=== PATIENT | female | born 1960 | race Caucasian/White ===

== ENCOUNTER 2025-02-12 15:48 | Inpatient (IN) ==
--- NOTE | 2025-02-12 16:05 | Emergency Department Note ---
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 IV was established and blood work was obtained along with CT head CT abdomen and pelvis ammonia levels. Patient was ordered IV Ofirmev as well as lidocaine patch. Chest x-ray also performed. The patient's blood work shows a white count of 9 with a hemoglobin of 10. Patient's platelet count is 55,000. The patient's kidney function unremarkable hypomagnesemia noted at 1.5. I did obtain outpatient records which showed that the patient's bilirubin was less than 2 but in the high ones. Today's bilirubin of 2.6 with an AST of 281. Lipase is normal. Urinalysis does not show evidence of obvious infection. Patient CT head shows unchanged destructive mass involving the left frontal bone. Patient's chest x-ray shows possible pneumonia. The patient CT abdomen pelvis shows cirrhosis metastatic disease of the liver with possible peritoneal carcinomatosis and associated ascites. 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 I did inform the patient the findings. The patient was ordered IV fluids and fentanyl 25 mcg. I spoke with Dr. Cruz on-call hospitalist service and the patient was admitted to the medicine service. Am concerned given the patient's imaging and lab work findings are consistent with worsening burden of disease. Likely further discussion of goals of care and possible treatment options as an inpatient. Discussion w/ other healthcare providers: Dr. Cruz inpatient medicine service Prior /Outside records reviewed: None Differential diagnosis: Infection, dehydration, metabolic abnormality, hypo/hyperglycemia, electrolyte imbalance, anemia, UTI, pneumonia, thyroid dysfunction among others were considered. Diagnostics, as interpreted by me: ECG: Normal sinus rhythm, rate of 93, normal intervals, normal axis no ST elevations. Cardiac monitoring: An order was placed for continuous cardiac monitoring. The monitor shows a rate of 92 with sinus rhythm. Patient was placed on pulse oximetry Medical decision rules: None Imaging studies: I informally interpreted the patient's chest x-ray without obvious pneumothorax port noted to the right chest with formal report to follow. HPI: Patient presents due to concern for right lower and lower abdominal pain as well as right shoulder pain in the setting of known liver cancer. She does follow with Dr. Plunkett with oncology. She reportedly did have radiation treatments every day last week and is undergoing immunotherapy which most recently happened on February 02. She reportedly was having some increasing confusion and had been taking Ativan in her or extended release morphine prior to her radiation treatments. They thought that this might be contributing to her confusion and this was stopped and only being given the immediate release. She reportedly did take Ativan yesterday. Patient reportedly did only receive 7.5 mg of IR morphine today. She has a chronic cough. Patient reportedly is had some increasing swelling and reports that she did have 4 diarrheal bowel movements today and does have a prior history of C. difficile status post Dificid and Vanco treatment about a month prior. No reported fevers or chills. Patient has had some decreased appetite. No fall or head strike. Patient has had worsening lower extremity swelling. No prior history of any paracentesis. Patient also reportedly has some pain of the right shoulder/scapula but does have a known history of a met there. Patient is also had radiation treatment to 1/6 rib. PAST MEDICAL HISTORY: See Below PAST SURGICAL HISTORY: See Below SOCIAL HISTORY: See Below HOME MEDICATIONS: See Below ALLERGIES: See Below VITALS: See Below PHYSICAL EXAMINATION: GENERAL: Resting comfortably nontoxic in appearance. EYE EXAM: Normal conjunctiva. PERRL, no anisocoria and EOM's grossly intact w/o pain. OROPHARYNX: Dry mucus membranes, grossly normal dentition. NECK: Trachea midline, no stridor. Supple, no nuchal rigidity, no adenopathy, non-tender. No signs of meningismus. FROM of the neck with good chin to chest and neck extension. LUNGS: Slight sonorous sound at the left base. Normal chest wall mechanics. HEART: NSR, no MRG. ABDOMEN: Abdomen soft, abdominal distention but without significant TTP, lower abdominal discomfort, not peritonitic, no masses, no rebound or guarding. BACK: No CVA TTP. SKIN: No rashes and no bruising. UPPER EXTREMITIES: Upper extremities are grossly normal. LOWER EXTREMITIES: Grossly normal, no edema. NEURO EXAM: Awake and alert follows basic commands, cranial nerves II-XII grossly intact, normal speech, moves all 4 extremities. 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 difficile colitis Hepatitis C Anxiety Hypertension Surgical History Hx of LASIK Hx of colonoscopy H/O esophagogastroduodenoscopy Family History Mother COPD (chronic obstructive pulmonary disease) Father Cirrhosis of liver Brother Cancer Colon Social History Smoking Status: Former smoker Age Started Using Tobacco: 9; Age Quit Using Tobacco: 64; packs per day: 0.5; Hx Alcohol Use: No Hx Substance Use: No Preferred Language: [facility] Communication Ability: Effective Beliefs That Will Affect Care: None Current Living Situation: Spouse Current Living Situation Comment: currently living with son current occupational status: retired Feels Safe at Home: Yes Safety Concerns: Feels Safe At This Time Diet: regular during the past year weight has: remained stable Assistive Devices: Lift Chair Allergies Allergies Allergy/AdvReac Type Severity Reaction Status Date / Time No Known Allergies Allergy Unverified 01/25/25 10:02 Home Meds Home Medications Medication Instructions Recorded Confirmed albuterol sulfate 90 mcg/actuation 2 puff inhalation Q4H PRN 01/25/25 02/12/25 aerosol inhaler (Ventolin HFA) Shortness Of Breath carvedilol 6.25 mg tablet (Coreg) 6.25 mg PO BID 01/25/25 02/12/25 furosemide 20 mg tablet (Lasix) 20 mg PO DAILY 01/25/25 02/12/25 gabapentin 100 mg capsule 100 mg PO TID 01/25/25 02/12/25 multivitamin with minerals-folic 1 tab PO DAILY 01/25/25 02/12/25 acid 120 mcg chewable tablet (Centrum Adult 50 Plus Fresh-Fruity) naloxone 4 mg/actuation nasal spray 1 spray intranasal Q3M 01/25/25 02/12/25 ondansetron HCl 8 mg tablet 8 mg PO Q8H PRN Nausea 01/25/25 02/12/25 prochlorperazine maleate 10 mg 10 mg PO Q6H PRN Nausea 01/25/25 02/12/25 tablet (Compazine) venlafaxine 150 mg 150 mg PO DAILY 01/25/25 02/12/25 capsule,extended release 24 hr venlafaxine 75 mg tablet 75 mg PO DAILY 01/25/25 02/12/25 morphine 15 mg immediate release 7.5 mg PO Q6H PRN Pain 02/11/25 02/12/25 tablet lidocaine-prilocaine 2.5 %-2.5 % 1 applic topical UD PRN ACCESSING 02/12/25 02/12/25 topical cream MEDIPORT potassium chloride 10 mEq 10 meq PO QAM 02/12/25 02/12/25 tablet,extended release spironolactone 50 mg tablet 50 mg PO AMHS 02/12/25 02/12/25 Results & Data (ED) Vital Signs Vital Signs - 24 hr 02/12/25 16:51 02/12/25 17:00 02/12/25 18:00 Pulse Rate 96 H Pulse Rate [Apical] 99 H Respiratory Rate 20 Blood Pressure [Right Arm] 113/61 Blood Pressure Mean [Right Arm] 78 Pulse Oximetry 90 Oxygen Delivery Method Room Air Room Air Home Medications Current Medication List: was personally reviewed by me Laboratory Data Attestation: I reviewed the patient's lab results. 02/13/25 06:08 02/13/25 06:08 Lab Results 02/12/25 02/12/25 02/12/25 Range/Units 17:05 17:13 18:11 WBC 9.50 (4.8-10.8) K/ul RBC 3.66 L (4.20-5.40) M/uL Hgb 10.4 L (12.0-16.0) g/dl POC Hgb 11.6 L (12.0-16.0) g/dl Hct 31.8 L (37.0-47.0) % POC Hct 34 L (37-47) % MCV 86.9 (80.0-100.0) fL MCH 28.4 (25.0-34.0) pg MCHC 32.7 (32.0-36.0) g/dL RDW Std Deviation 57.9 H (36.4-46.3) fL RDW Coeff of Madie 18.6 H (11.5-14.5) % Plt Count 55 L (130-400) K/uL MPV 11.6 (9.4-12.4) fL Immature Gran % (Auto) 1.7 % Neut % (Auto) 81.6 % Lymph % (Auto) 4.1 % Wright % (Auto) 11.4 % Eos % (Auto) 0.8 % Baso % (Auto) 0.4 % Neut # (Auto) 7.75 H (1.40-6.50) K/uL Lymph # (Auto) 0.39 L (1.20-3.40) K/uL Wright # (Auto) 1.08 H (0.11-0.59) K/uL Eos # (Auto) 0.08 (0.00-0.50) K/uL Baso # (Auto) 0.04 (0.00-0.20) K/uL Immature Gran # (Auto) 0.16 (0.01-0.20) K/uL Platelet Estimate Decreased L (Normal) Anisocytosis Present Ovalocytes 1+ PT 21.2 H (9.0-12.0) Seconds INR 2.1 H (0.9-1.1) POC Sodium 134 L (135-144) mmol/L Sodium 134 L (136-145) mmol/L POC Potassium 3.3 (3.3-5.0) mmol/L Potassium 3.4 L (3.5-5.1) mmol/L POC Chloride 93 L (101-112) mmol/L Chloride 97 L (98-107) mmol/L Carbon Dioxide 32 (21-32) mmol/L POC Total CO2 26 (24-31) mmol/L Anion Gap 5 (3-11) POC Anion Gap 20.0 (16-25) mmol/L POC BUN 5 L (7-18) mg/dl BUN 7 (6-23) mg/dl Creatinine 0.55 L (0.6-1.2) mg/dl POC Creatinine 0.5 L (0.6-1.3) mg/dl Est Cr Clr Drug Dosing Not Reportable eGFR 101.66 BUN/Creatinine Ratio 12.7 (10-20) Glucose 147 H (70-99(Fasting)) mg/dl POC Glucose (other) 147 H (70-99) mg/dl Calcium 8.6 (8.6-10.3) mg/dl POC Ioniz Calcium Korey 1.08 L (1.12-1.32) mmol/l Magnesium 1.5 L (1.7-2.4) mg/dl Total Bilirubin 2.6 H (0.2-1.0) mg/dl AST 281 H (13-39) U/L ALT 93 H (7-52) U/L Alkaline Phosphatase 791 H (34-104) U/L Ammonia 61.0 (18-72) umol/L Total Protein 6.6 (6.0-8.3) gm/dl Albumin 3.4 (3.4-5.0) gm/dl Globulin 3.2 (2.5-4.0) gm/dl Albumin/Globulin Ratio 1.1 (0.9-2) Lipase 56 (11-82) U/L TSH 1.016 (0.300-4.500) uIu/ml Urine Color Yellow Urine Appearance Clear (Clear) Urine pH 7.0 (4.5-7.5) Ur Specific [place] 1.045 H (1.000-1.030) Urine Protein Negative (Negative) Urine Glucose (UA) Negative (Negative) Urine Ketones Trace H (Negative) Urine Blood Negative (Negative) Urine Nitrite Negative (Negative) Urine Bilirubin Negative (Negative) Urine Urobilinogen Negative (Negative) Ur Leukocyte Esterase Negative (Negative) Administered Medications Fidaxomicin (Fidaxomicin 200 Mg Tab) 200 mg PO BID [facility] Stop: 02/23/25 11:14 Last Admin: 02/13/25 12:05 Dose: 200 mg Documented By: DAVID Furosemide (Furosemide 20 Mg Tab) 20 mg PO DAILY [facility] Stop: 03/15/25 08:59 Last Admin: 02/13/25 08:50 Dose: 20 mg Documented By: DAVID Ceftriaxone Sodium (Rocephin) 2,000 mg in 50 mls @ 100 mls/hr IV Q24H [facility] Stop: 02/22/25 20:29 Last Infusion: 02/13/25 01:45 Dose: Infused Documented By: Admin: 02/12/25 23:55 Dose: 100 mls/hr Documented By: FRANSISCO Lactulose (Lactulose Syrup 20 Gm/30 Ml Udc) 20 gm PO DAILY [facility] Stop: 03/15/25 08:59 Last Admin: 02/13/25 08:50 Dose: 20 gm Documented By: DAVID Lorazepam (Lorazepam 0.5 Mg Tab) 0.5 mg PO Q8 PRN PRN Reason: Anxiety Stop: 03/14/25 20:38 Last Admin: 02/12/25 23:12 Dose: 0.5 mg Documented By: FRANSISCO Morphine Sulfate (Morphine Sulfate 4 Mg/Ml 1 Ml Carp\Vial) 4 mg IV Q3HWA PRN PRN Reason: Breakthrough Pain Stop: 02/26/25 20:15 Last Admin: 02/13/25 02:56 Dose: 4 mg Documented By: Admin: 02/12/25 22:58 Dose: 4 mg Documented By: FRANSISCO Morphine Sulfate (Morphine Sulfate Cr 15 Mg Tabcr) 7.5 mg PO Q12H [facility] Stop: 02/27/25 15:29 Last Admin: 02/13/25 16:08 Dose: 7.5 mg Documented By: DAVID Multivitamins/Minerals (Cerovite Adv Formula Tab) 1 tab PO DAILY [facility] Stop: 03/15/25 08:59 Last Admin: 02/13/25 08:50 Dose: 1 tab Documented By: DAVID Ondansetron HCl (Ondansetron 8mg Od Tab) 8 mg PO Q8H PRN PRN Reason: Nausea And Vomiting Stop: 03/14/25 22:34 Last Admin: 02/12/25 23:14 Dose: 8 mg Documented By: FRANSISCO Potassium Chloride (Potassium Chloride 10 Meq Tabcr) 10 meq PO QAM [facility] Stop: 03/15/25 08:59 Last Admin: 02/13/25 08:59 Dose: 10 meq Documented By: DAVID Pregabalin (Pregabalin 25 Mg Cap) 25 mg PO TID [facility] Stop: 03/15/25 13:59 Last Admin: 02/13/25 13:07 Dose: 25 mg Documented By: CODIE Spironolactone (Spironolactone 25 Mg Tab) 50 mg PO BID17 [facility] Stop: 03/14/25 22:24 Last Admin: 02/13/25 16:07 Dose: 50 mg Documented By: Admin: 02/13/25 08:49 Dose: 50 mg Documented By: Admin: 02/12/25 23:14 Dose: 50 mg Documented By: FRANSISCO Venlafaxine HCl (Venlafaxine Hcl Xr 75 Mg Capxr) 75 mg PO DAILY [facility] Stop: 03/15/25 08:59 Last Admin: 02/13/25 08:50 Dose: 75 mg Documented By: DAVID Venlafaxine HCl (Venlafaxine Hcl Xr 150 Mg Capxr) 150 mg PO DAILY [facility] Stop: 03/15/25 08:59 Last Admin: 02/13/25 08:49 Dose: 150 mg Documented By: DAVID Discontinued Medications Dexamethasone (Dexamethasone Sod Inj 4 Mg/Ml Vial) 4 mg IV NOW STA Stop: 02/13/25 14:28 Last Admin: 02/13/25 15:13 Dose: 4 mg Documented By: DAVID Fentanyl Citrate (Fentanyl Citrate Pf 100 Mcg/2 Ml Vial) 25 mcg IV NOW STA Stop: 02/12/25 19:20 Last Admin: 02/12/25 20:13 Dose: 25 mcg Documented By: GREGORY Gabapentin (Gabapentin 100 Mg Cap) 100 mg PO TID [facility] Stop: 03/14/25 22:24 Last Admin: 02/13/25 08:50 Dose: 100 mg Documented By: Admin: 02/12/25 23:13 Dose: 100 mg Documented By: FRANSISCO Acetaminophen (Ofirmev) 1,000 mg in 100 mls @ 400 mls/hr IV NOW STA Stop: 02/12/25 16:36 Last Infusion: 02/12/25 17:32 Dose: Infused Documented By: Admin: 02/12/25 17:17 Dose: 400 mls/hr Documented By: STACY Magnesium Sulfate/Dextrose (Magnesium Sulfate / D5w) 1 gm in 100 mls @ 100 mls/hr IV NOW STA Stop: 02/12/25 19:06 Last Infusion: 02/12/25 19:27 Dose: Infused Documented By: Admin: 02/12/25 18:21 Dose: 100 mls/hr Documented By: GREGORY Sodium Chloride (Nss) 500 mls @ 999 mls/hr IV .Q31M ONE Stop: 02/12/25 19:49 Last Infusion: 02/12/25 20:57 Dose: Infused Documented By: Admin: 02/12/25 20:14 Dose: 999 mls/hr Documented By: GREGORY Magnesium Sulfate/Dextrose (Magnesium Sulfate / D5w) 1 gm in 100 mls @ 50 mls/hr IV Q2H [facility] Stop: 02/13/25 00:44 Last Infusion: 02/13/25 01:45 Dose: Infused Documented By: Admin: 02/12/25 23:12 Dose: 50 mls/hr Documented By: Infusion: 02/12/25 23:12 Dose: Infused Documented By: Admin: 02/12/25 22:59 Dose: 50 mls/hr Documented By: FRANSISCO Calcium Gluconate () 1,000 mg in 60 mls @ 240 mls/hr IV NOW STA Stop: 02/12/25 20:46 Last Infusion: 02/12/25 22:00 Dose: Infused Documented By: Admin: 02/12/25 21:28 Dose: 240 mls/hr Documented By: GREGORY Ioversol (Optiray 320 100ml) 93 ml IV ONCE ONE Stop: 02/12/25 17:39 Last Admin: 02/12/25 17:39 Dose: 93 ml Documented By: MEDINA Lidocaine (Lidocaine 5% 1 Patch) 1 patch TD NOW STA Stop: 02/12/25 16:23 Last Admin: 02/12/25 16:49 Dose: 1 patch Documented By: GREGORY Miscellaneous (Remove Lidoderm Patch) 1 each N/A DAILY@2100 [facility] Stop: 03/14/25 20:59 Last Admin: 02/12/25 22:26 Dose: Not Given Documented By: FRANSISCO Morphine Sulfate (Morphine Sulfate Ir 15 Mg Tab (Immediate Release)) 7.5 mg PO Q6H PRN PRN Reason: Pain Stop: 02/26/25 22:24 Last Admin: 02/13/25 13:06 Dose: 7.5 mg Documented By: Admin: 02/12/25 23:12 Dose: 7.5 mg Documented By: FRANSISCO Potassium Chloride (Potassium Chloride 20 Meq/15 Ml Udc) 40 meq PO NOW STA Stop: 02/12/25 20:32 Last Admin: 02/12/25 21:28 Dose: 40 meq Documented By: GREGORY Imaging Data Radiologist's Impression: Chest X-Ray 02/12/25 16:22 EXAM: Radiograph of the Chest 1 View INDICATION: TECHNIQUE: Frontal view of the chest. COMPARISON: 10/14/2024 FINDINGS: Lungs and pleural spaces: There is a 3.9 x 4.3 cm groundglass opacity in the right upper lobe or superior segment of the right lower lobe. Coarse interstitial scarring noted. No pleural effusion or pneumothorax. Heart: Shape and configuration within normal limits allowing for technique. Mediastinum: Normal contour. Bones/joints: No fracture, erosion or dislocation. Soft tissues: No abnormality noted. No radiopaque foreign body noted. Tubes, lines and devices: Right internal jugular central venous catheter tip in the distal superior vena cava. Upper abdomen: No abnormality noted. IMPRESSION: 1. There is a 3.9 x 4.3 cm groundglass opacity in the right upper lobe or superior segment of the right lower lobe. Pneumonia considered most likely. Consider confirmation with two-view chest. 2. Lines and tubes as above. ACT 112: N/A Electronically signed by Jenelle Vidal 02-13-2025 09:17 AM Abdomen/Pelvis CT 02/12/25 16:22 Clinical History: Right lower quadrant pain. Liver cancer Technique: Axial computed tomography images were obtained of the abdomen and pelvis after the administration of intravenous contrast. No prior CT is available for comparison. Findings: The liver is shrunken and nodular in contour, consistent with cirrhosis. There are mild abdominal varices. There are innumerable low-attenuation lesions throughout the right hepatic lobe and to a lesser extent within the left hepatic lobe. There is apparent occlusion of the right portal vein. The main portal vein is patent. There are apparent mild gallbladder wall calcifications. There is a suspected stone in the gallbladder neck. There is no clear evidence of acute cholecystitis. No bile duct dilatation is noted. The spleen is enlarged measuring 15.4 cm. No focal splenic lesion is evident. The pancreas appears normal with no sign of acute or chronic pancreatitis and no mass lesion noted. The pancreatic duct is of normal caliber. The adrenal glands appear unremarkable. No definite renal or proximal ureteral calculi are seen on this contrast-enhanced study. There is no hydronephrosis or perinephric stranding. No renal mass lesion is identified. The aorta is of normal caliber. There is an enlarged portacaval lymph node, measuring 5.3 x 2.3 cm. The stomach appears normal. There is no sign of small bowel obstruction. The colon appears unremarkable. There is no definite sign of appendicitis. No free intraperitoneal air is identified. There is a small to moderate amount of ascites. There is multifocal peritoneal nodularity No distal ureteral or bladder calculi are seen. No bladder mass lesion is evident. The iliac arteries are of normal caliber. No pelvic adenopathy is noted. There are prominent periuterine veins The lungs bases appear clear. Lumbar scoliosis and degenerative disc disease is seen. No fracture is identified. No focal osseous lesion is seen Impression: 1. Cirrhosis and portal hypertension 2. Numerous small low-attenuation masses within the liver, consistent with infiltrative hepatocellular carcinoma or metastatic disease 3. Portacaval adenopathy, consistent with metastatic disease 4. Splenomegaly 5. Numerous small soft tissue nodules involving the peritoneal lining, concerning for peritoneal carcinomatosis 6. Small to moderate amount of ascites 7. 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 Cholelithiasis without definite acute cholecystitis ACT 112: Positive. There are findings on this exam that require communication between the performing entity and the patient following Patient Test Result Information Act ([place] ACT 112) guidelines. Electronically signed by Juan Sanchez 02-12-2025 6:07 PM Chest X-Ray 02/12/25 16:22 EXAM: Radiograph of the Chest 1 View INDICATION: TECHNIQUE: Frontal view of the chest. COMPARISON: 10/14/2024 FINDINGS: Lungs and pleural spaces: There is a 3.9 x 4.3 cm groundglass opacity in the right upper lobe or superior segment of the right lower lobe. Coarse interstitial scarring noted. No pleural effusion or pneumothorax. Heart: Shape and configuration within normal limits allowing for technique. Mediastinum: Normal contour. Bones/joints: No fracture, erosion or dislocation. Soft tissues: No abnormality noted. No radiopaque foreign body noted. Tubes, lines and devices: Right internal jugular central venous catheter tip in the distal superior vena cava. Upper abdomen: No abnormality noted. IMPRESSION: 1. There is a 3.9 x 4.3 cm groundglass opacity in the right upper lobe or superior segment of the right lower lobe. Pneumonia considered most likely. Consider confirmation with two-view chest. 2. Lines and tubes as above. ACT 112: N/A Electronically signed by Jenelle Vidal 02-13-2025 09:[address] 02/12/25 16:22 Clinical History: Confusion. Technique: Axial computed tomography images were obtained of the brain from the vertex to the skull base without intravenous contrast. Comparison is made to the MRI of the brain dated 01/12/2025 Findings: There is no sign of intracranial hemorrhage. There is normal vora-white matter differentiation with no sign of acute or old infarction. No midline shift or other form of herniation is identified. There is no hydrocephalus. There is an unchanged 3.4 cm expansile hyperdense destructive mass involving the left frontal bone The visualized portions of the orbits and paranasal sinuses appear unremarkable. The mastoid air cells appear clear Impression: 1. Unchanged 3.4 cm expansile destructive mass involving the left frontal bone. This may be due to metastatic disease 2. Otherwise unremarkable noncontrast head CT ACT 112: Positive. There are findings on this exam that require communication between the performing entity and the patient following Patient Test Result Information Act ([place] ACT 112) guidelines. 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
--- OUTSIDE RECORDS SUMMARY | 2025-02-12 16:07 | External Medical Summary | Summary of Care ---
Author Name Unknown Organization [facility] Address [address] [facility] [place] [address] Phone [phone] Care Team Providers Care Senior Laboratory Technician Name Role Phone Jay Gonzales MD Primary Care [facility] Reason for Visit * Reason Onset Date Comments Advice 02/03/2025 ramon Encounter Details Date Type Department Care Team (Late st Contact Info) Description 02/03/2025 Telephone Hematology/Oncology [facility] [address] [place] [address] Tunde Plunkett MD [address] [place] [address] Advice (ramon) Allergies No known active allergiesdocumented as of this encounter (statuses as of 02/04/2025) Medications Multiple Vitamins-Minera ls (CENTRUM ADULTS) TABS Take 1 Tablet by mouth in the morning. Active QUEtiapine Fumarate 25 MG Oral Tablet (SEROquel)Indic ations:Mood disorder (HCC) Take 1 Tablet by mouth at bedtime. 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 90 Tablet 3 4 Active Venlafaxine HCl ER 150 MG Oral Capsule Extended Release 24 Hour (Effexor XR)Indications: Mood disorder (HCC) TAKE 1 CAPSULE BY MOUTH EVERY DAY DO NOT CUT, CRUSH, OR CHEW 90 Capsule 1 5 Active Venlafaxine HCl ER 75 MG Oral Capsule Extended Release 24 Hour (Effexor XR)Indications: Mood disorder (HCC) TAKE 1 CAPSULE BY MOUTH DAILY. DO NOT CUT, CRUSH OR CHEW (TAKE WITH 301=512EQ DAILY) 90 Capsule 1 5 Active Gabapentin 100 MG Oral Capsule (Neurontin) Take 1 Capsule by mouth in the morning and 1 Capsule at noon and 1 Capsule before bedtime. Slowly increase the dose over 3 weeks--Start with one capsule in the evening for the first week. Add the afternoon dose on week 2 and the morning dose on week 3.. 90 Capsule 5 5 Active Ventolin HFA 108 (90 Base) MCG/ACT Inhalation Aerosol SolutionIndicat ions:Wheezing Inhale 2 Puffs by mouth every 4 hours as needed for Wheezing. 6.7 g 3 5 Active Morphine Sulfate 15 MG Oral Tablet (Msir) Take 0.5 Tablets by mouth every 6 hours. 90 Tablet 01/14/2025 4:09 PM EDT 5 Active Cholestyramine Light 4 GM Oral Packet (Prevalite) Take 1 Packet by mouth in the morning and 1 Packet before bedtime. 60 Packet 3 01/14/2025 4:09 PM EDT 5 Active Additional Information Patient not taking.Reported on 01/27/2025 Fidaxomicin 200 MG Oral Tablet (Dificid)Indica tions:C. difficile diarrhea Take 1 Tablet by mouth in the morning and 1 Tablet before bedtime. 10 Tablet 01/14/2025 4:09 PM EDT 5 Active Additional Information Patient not taking.Reported on 01/27/2025 Naloxone HCl 4 MG/0.1ML Nasal Liquid (Narcan Nasal) Administer 1 spray into 1 nostril for suspected opioid overdose. Seek immediate medical attention. [email or web address] 2 Each 3 5 Active Additional Information Patient not taking.Reported on 01/27/2025 Morphine Sulfate ER 15 MG Oral Tablet Extended Release (MS Contin)Indicati ons:Hepatocellu lar carcinoma (HCC),Metastasi s to bone (HCC) Take 1 Tablet by mouth in the morning and 1 Tablet before bedtime. 60 Tablet 5 Active Prochlorperazin e Maleate 10 MG Oral Tablet (Compazine)Heather cations:Hepatoc ellular carcinoma (HCC),Metastasi s to bone (HCC) Take 1 Tablet by mouth every 6 hours as needed for Nausea. 60 Tablet 2 5 Active Ondansetron HCl 8 MG Oral Tablet (Zofran)Indicat ions:Hepatocell ular carcinoma (HCC),Metastasi s to bone (HCC) Take 1 Tablet by mouth every 8 hours as needed for Nausea. 30 Tablet 3 5 Active Furosemide 20 MG Oral Tablet (Lasix)Indicati ons:Hepatocellu lar carcinoma (HCC),Metastasi s to bone (HCC),Leg edema Take 1 Tablet by mouth in the morning. 30 Tablet 5 Active Spironolactone 25 MG Oral Tablet (Aldactone)Heather cations:Hepatoc ellular carcinoma (HCC),Metastasi s to bone (HCC),Leg edema Take 1 Tablet by mouth in the morning and 1 Tablet before bedtime. 60 Tablet 3 5 Active tiZANidine HCl 2 MG Oral Tablet (Zanaflex)Indic ations:Chronic right shoulder pain TAKE 1 TABLET BY MOUTH DAILY AT BEDTIME NEEDED FOR MUSCLE SPASMS. 30 Tablet 5 Active Spironolactone 50 MG Oral Tablet (Aldactone)Heather cations:Hepatoc ellular carcinoma (HCC),Metastasi s to bone (HCC),Hypokalem ia,Leg edema Take 1 Tablet by mouth in the morning and 1 Tablet before bedtime. 60 Tablet 2 5 Active Potassium Chloride ER 10 MEQ Oral Tablet Extended ReleaseIndicati ons:Hepatocellu lar carcinoma (HCC),Metastasi s to bone (HCC),Hypokalem ia,Leg edema Take 1 Tablet by mouth in the morning. 30 Tablet 2 5 Active Lidocaine-Prilo violet 2.5-2.5 % External Cream (Emla)Indicatio ns:Hepatocellul ar carcinoma (HCC),Metastasi s to bone (HCC) APPLY TO SKIN OVER MEDIPORT & COVER 1HR PRIOR TO ACCESSING. 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 Palliative care encounter 01/06/2025 Pain from bone metastases 01/06/2025 Recurrent major depressive disorder 12/30/2024 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) 08/20/2024 Assessment & Plan (12/30/2024 12:16 PM EDT): - hepatology follow up Major depressive disorder with single episode HTN, goal below 130/80 04/03/2023 Assessment & Plan (12/30/2024 12:16 PM EDT): Wears dentures 04/18/2021 Thrombocytopenia 08/18/2020 Portal hypertension 06/09/2019 Mood disorder 02/16/2018 Other cirrhosis of liver 09/14/2009 Menopause 09/11/2009 Overview (09/11/2009): Age 46 Generalized anxiety disorder 07/03/2009 documented as of this encounter (statuses as of 02/04/2025) Resolved Problems Problem Noted Date Diagnosed Date Resolved Date Acute hypoxic respiratory failure 01/06/2025 01/07/2025 Cholelithiasis 01/06/2025 01/13/2025 OTHER 11/15/2009 08/20/2018 Overview (11/20/2009): Genotype 1a Chronic hepatitis C 09/21/2009 08/20/20 18 documented as of this encounter (statuses as of 02/04/2025) Immunizations Name Administration Dates Next Due TDAP, Age 7 and older, IM (Adacel) 07/03/2009 documented as of this encounter Social History Tobacco Use Types Packs/Day Years Used Date Smoking Tobacco: Former Cigarettes 0.5 20 Passive Smoke Exposure: Never Smokeless Tobacco: Never Comments:10 per day Alcohol Use Standard Drinks/Week Comments No 0 (1 standard drink = 0.6 oz pur e alcohol) PHQ-2 Answer Date Recorded PHQ Adult Total Score 2 06/25/2022 Comments No Sex and Gender Information Value Date Recorded Sex Assigned at Female 06/25/2022 12:51 PM EDT Legal Sex Female 7:01 AM EST Gender Identity Female 06/25/2022 12:51 PM EDT Sexual Orientation Straight 06/25/2022 12 :51 PM EDT documented as of this encounter Functional Status * Are you deaf or do you have serious difficulty hearing? Answer Date of Assessment Author No 01/06/2025 6:09 PM Noni Castellon RN * Are you blind or do you have serious difficulty seeing, even when wearing glasses? Answer Date of Assessment Author No 01/06/2025 6:09 PM Noni Castellon RN * Do you have serious difficulty walking or climbing stairs? (5 years old or older) Answer Date of Assessment Author Yes 01/06/2025 6:09 PM Noni Castellon RN * Do you have difficulty dressing or bathing? (5 years old or older) Answer Date of Assessment Author Yes 01/06/2025 6:09 PM Noni Castellon RN * Because of a physical, mental, or emotional condition, do you have difficulty doing errands alone such as visiting a doctor’s office or shopping? (15 years old or older) Answer Date of Assessment Author Yes 01/06/2025 6:09 PM Noni Castellon RN documented as of this encounter Mental Status * Because of a physical, mental, or emotional condition, do you have serious difficulty concentrating, remembering, or making decisions? (5 years old or older) Answer Entry Date Author Yes 01/06/2025 6:09 PM Noni Castellon RN documented in this encounter Miscellaneous Notes * Telephone Encounter - Irena Orta LPN - 02/04/2025 8:58 AM EDT Attempted to contact patient's daughter Gibran, unable to leave a voicemail due to "voicemail box not being set up". Will re-attempt at a later time. * Telephone Encounter - Samantha Strange RN - 02/04/2025 8:47 AM EDT 02/22/25 labs are for treatment[facility] sure [facility] have results for her treatment 02/23. Benny: please call patients daughter to let her know. If they want to switch from the [place] lab to a different [facility] 02/22 they can, patient could also come here at 9am on 02/23 to have lab work drawn before seeing Dr Plunkett * Telephone Encounter - Charo oJ OSA - 02/03/2025 4:25 PM EDT Pts daughter callling and she has and app[facility] she is asking for her labs to be faxedover there so she can get them while she is there fax: [phone] documented in this encounter Plan of Treatment Upcoming Encounters Date Type Department Care Team (Late st Contact Info) Description 02/09/2025 11:30 AM EDT Laboratory Laboratory Patient Service [place], [place] [address] [place] [phone] [place], [facility] [place] [address] [place] [address] [place] [address] 02/22/2025 11:30 AM EDT Laboratory Laboratory Patient Service [place], [place] [address] [facility] [place] [phone] [place] [place] [facility] [address] 02/23/2025 9:30 AM EDT Office Visit Hematology/Oncology [facility] [place] [address] [place] [phone] [facility] [address] [facility] [address] 02/23/2025 10:00 AM EDT Hem/Onc Treatment Hematology/Oncology Treatment, [place] [address] [place], [place] [address] Denia, Chair 10 Hem Onc [facility] [address] [facility] [place], [place] [address] 02/25/2025 11:00 AM EDT Office Visit [address] [phone] Jay Gonzales MD [address] [place] [phone] Scheduled Procedures Name Priority Associated Diagnoses Date/Ti me COLONOSCOPY FLEXIBLE PROXIMA L DIAGNOSTIC Recall Personal history of colonic polyps Health Maintenance Due Date Last Done Comments COVID-19 Vaccine (#1) 1964 Depression Monitoring 1971 Zoster Vaccines (1 of 2) 1978 Influenza Vaccine (FLU shot) (Season Ended) 2025 Cervical Cancer Screening Discontinued Pap Smear Discontinued 09/11/2009, 09/11/2009 Colonoscopy Discontinued 05/06/2019, 04/19, 10/31/2014, Additional history exists Colorectal Cancer Screening Discontinued RETIRED - COLONOSCOPY-EVERY 5 YRS AGES 18-100 Discontinued 05/06/2019, 05/06/2019, 10/31/2014, Additional history exists Cologuard Discontinued Fecal Occult Blood Test Discontinued HPV/Co-Test Discontinued Meningitis B Vaccine (Bexsero/Trumemba) Aged Out No longer eligible based on patient's age to complete this topic Sigmoidoscopy Discontinued documented as of this encounter Medical Devices Implanted Type Area Manager Statistical Programming Device Identifier Shelf Expiration Date Model / Serial / Lot Port Implant W8f Poly Cath - [id number] Implanted:Qty : 1 on 01/27/2025 by Rambo Parker MD at [facility] Right: Chest CR BARD : PERIPHERAL VASCULAR [id number] 12/17/2025 [id number] / / [id number] documented as of this encounter Advance Directives * Full Code (Latest Code Status on File) Date Activated Date Inactivated Comments 01/06/2025 5:26 AM 01/14/2025 8:43 PM This order r eflects the patients wishes and were consensually agreed upon. Question Answer Comments Discussion of Advance Directives occurred with: Patient Care Teams Senior Laboratory Technician Relationship Specialty Start Date End Date Jay Gonzales MD [address] [place] [phone] PCP - General Family Medicine 09/13/22 documented as of this encounter
--- OUTSIDE RECORDS SUMMARY | 2025-02-12 16:07 | External Medical Summary | Summary of Care ---
Author Name Unknown Organization [facility] Address [address] [place] [address] Phone [phone] Care Team Providers Care Pumping Supervisor Name Role Phone Jay Gonzales MD Primary Care [facility] Reason for Visit * Reason Onset Date Comments Advice 02/10/2025 Dimitrios Encounter Details Date Type Department Care Team (Late st Contact Info) Description 02/10/2025 Telephone Hematology/Oncology [facility] [address] [place] [address] Services, Scheduling [address] [place] [address] Advice (Dimitrios) Allergies No known active allergiesdocumented as of this encounter (statuses as of 02/10/2025) Medications Multiple Vitamins-Minera ls (CENTRUM ADULTS) TABS [...] NOT CUT, CRUSH OR CHEW (TAKE WITH [id number] DAILY) 90 Capsule 1 5 Active Gabapentin [...] suspected opioid overdose. Seek immediate medical attention. [email or web address] 2 Each 3 5 Active Additional Information [...] as of this encounter (statuses as of 02/10/2025) Active Problems Problem Noted Date Diagnosed Date [...] as of this encounter (statuses as of 02/10/2025) Resolved Problems Problem Noted Date Diagnosed Date Resolved Date Acute hypoxic respiratory failure 01/06/2025 01/07/2025 Cholelithiasis 01/06/2025 01/13/2025 OTHER 11/15/2009 08/20/2018 Overview (11/20/2009): Genotype 1a Chronic hepatitis C 09/21/2009 08/20/20 18 documented as of this encounter (statuses as of 02/10/2025) Immunizations Name Administration Dates Next Due TDAP, [...] of Assessment Author No 01/06/2025 6:09 PM JAVIERT Noni Molina RN * Are you blind or do [...] encounter Miscellaneous Notes * Telephone Encounter - Samantha Strange RN - 02/10/2025 8:35 AM EDT Called and spoke to patients daughter. She states that patient seemed to be doing well until [place]; however, since then has seemed very tired, at times seems like she has a hard time keeping her eyes open. She is weak, has no energy. Her mom is also having diarrhea- she is not sure how much as hermom wears depends and doesn't realize she is going half the time. She notes that her mom has had cdiff in the past. She states that her mom has also been more confused than usual- yesterday she started flipping out in the car because she didn't want to be in there any longer, she was worried that her mom was going to try opening the door while they were driving. Advised her that patient should come to office for labs/ assessment. Patient has radiation at 10:30am, asked her to come here after for labs/ Shyann. She accepted appts. * Telephone Encounter - Joan Smith OSA - 02/10/2025 8:08 AM EDT Daughter called and asked to speak with Dr. Plunkett. She says patient is not doing well and would like to talk about it. documented in this encounter Plan of Treatment Upcoming Encounters Date Type Department Care Team (Late st Contact Info) Description 02/10/2025 11:10 AM EDT Laboratory Laboratory [facility] [place] [address] [place] [phone] [facility] [address] [place] [address] 02/10/2025 11:30 AM EDT Office Visit Hematology/Oncology [facility] [place] [address] [place] [phone] Shyann Rojas CRNP [address] [place] [address] 02/10/2025 12:00 PM EDT Hem/Onc Treatment Hematology/Oncology Treatment, [place] [address] [facility] [phone] Denia, Chair 4 Hem Onc [address] [place] [address] 02/22/2025 11:30 AM EDT Laboratory Laboratory Patient Service [facility] [address] [place] [address] [place], [address] [address] 02/23/2025 9:30 AM EDT Office Visit Hematology/Oncology [facility] [address] [place] [phone] Tunde Plunkett MD [address] [place] [address] [place] [address] 02/23/2025 10:00 AM EDT Hem/Onc Treatment Hematology/Oncology [address], [place] [phone] Denia, Chair 10 Hem Onc [address] [place], [place] [address] 02/25/2025 11:00 AM EDT Office Visit [address] [phone] Jay Gonzales MD [address] [place] [phone] Scheduled Procedures Name Priority Associated Diagnoses [...] this encounter Medical Devices Implanted Type Area Project Crew Worker Device Identifier Shelf Expiration Date Model / Serial / Lot Port Implant W8f Poly Cath - [id number] Implanted:Qty : 1 on 01/27/2025 by Rambo Parker MD at OR [facility] Right: Chest CR BARD : PERIPHERAL VASCULAR [id number] 12/17/2025 [id number] / / [id number] documented as of this encounter Advance Directives * Full Code (Latest Code Status on File) Date Activated Date Inactivated Comments 01/06/2025 5:26 AM 01/14/2025 8:43 PM This order r eflects the patients wishes and were consensually agreed upon. Question Answer Comments Discussion of Advance Directives occurred with: Patient Care Teams Pumping Supervisor Relationship Specialty Start Date End Date Jay Gonzales MD [address] [place] [phone] PCP - General Family Medicine 09/13/22 documented as of this encounter
--- OUTSIDE RECORDS SUMMARY | 2025-02-12 16:07 | External Medical Summary ---
Author Name Unknown Address Unknown Organization K09[facility] [place] [address] Laboratory Report Ordering Provider Test Date Status JEREMIAH CROCKETT 02/10/2025 11:46:20 Final Observation Date Value Abnormality Reference (Units ) Status Magnesium 02/10/2025 11:46:20 1.9 1.5-2.6 (m g/dL) Final Performing Location [facility] [place] [address]
--- OUTSIDE RECORDS SUMMARY | 2025-02-12 16:07 | External Medical Summary | Summary of Care ---
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 Seek immediate medical attention. [email or web address] 2 Each 3 5 Active Additional Information [...] 1HR PRIOR TO ACCESSING. 30 g 1 5 Active documented as of this encounter (statuses [...] PM EDT documented as of this encounter Last Filed Vital Signs Vital Sign Reading Time Taken Comments Blood Pressure 135/79 02/10/2025 11:56 AM EDT Pulse 90 02/10/2025 11:56 AM EDT Temperature 36.7 °C (98 °F) 02/10/2025 11:56 AM EDT Respiratory Rate - - Oxygen Saturation 89% 02/10/2025 11:56 AM EDT Inhaled Oxygen Concentration - - Weight 70.8 kg (156 lb 1.6 oz) 02/10/2025 11:56 AM EDT Height - - Body Mass Index 27.66 01/27/2025 10:55 AM EDT documented in this encounter Functional Status * Are you deaf or do you have serious difficulty hearing? Answer Date of Assessment Author No 01/06/2025 6:09 PM EDT Noni Molina RN * Are you blind or do you have serious difficulty seeing, even when wearing glasses? Answer Date of Assessment Author No 01/06/2025 6:09 PM EDT Noni Molina RN * Do you have serious difficulty walking or climbing stairs? (5 years old or older) Answer Date of Assessment Author Yes 01/06/2025 6:09 PM EDT Noni Molina RN * Do you have difficulty dressing or bathing? (5 years old or older) Answer Date of Assessment Author Yes 01/06/2025 6:09 PM EDT Noni Molina RN * Because of a physical, mental, [...] Noni Castellon RN documented in this encounter Progress Notes * Shyann Rojas CRNP - 02/10/2025 11:30 AM EDT Hematology/Oncology Outpatient Clinic note [facility] [place] [address] [facility] [place] [address] Name: Neha Marks Date: 02/10/2025 CHIEF COMPLAINT: Neha Marks is a 64 year old female patient of Dr. Tunde Plunkett here today for f/u visit From Patient chart confirmed history with patient. From Dr. Tunde Plunkett note 02/02/2025 DIAGNOSIS: Hepatocellular carcinoma (segment 7 mass measuring 8.5 x 5 cm, LR 5 ). Left lobe of the liver smalllesion measuring 1.2 x 1.8 with LR 3. -cirrhosis of liver with evidence of portal hypertension , splenomegaly. -alpha-fetoprotein level --> 678 (10/11/2024). It was normal about 1 1/2 year before that. 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 Biopsy from right scapular mass --> metastatic hepatocellular carcinoma. AFP level increased to around 11,400 thousand four hundred as of 01/21/2025. CURRENT TREATMENT: - Atezolizumab and Bevacizumab every 3 weekly starting on 02/02/2025 Regarding pain management, MS Contin 15 mg every 12 hourly and she will continue immediate release morphine sulfate 7.5 mg every 4 to 6 hourly. -she will have radiation treatment to the scalp lesion, she had radiation treatment x1 dose ( 800 cGy ) to the right 6th rib and scapular lesion on 01/14/2025. DIAGNOSTIC WORKUP: Positive hepatitis-C, treated with Harvoni in 2014. Ultrasound of the abdomen on 04/01/2023: - Cirrhosis of the liver without any focal liver lesion. Ultrasound of the liver on 09/06/2024: -cirrhosis of liver, hypoechoic left lobe of the liver mass measuring 1.2 x 1.7 x 2.1 cm. Ill-defined heterogenicity in the right lobe of the liver. -gallstone present. No evidence of cholecystitis. MRI of the liver on 09/27/2024: -cirrhosis of the liver. -infiltrative mass in segment 7 measuring 8.5 x 5 cm -1.2 x 1.8 cm left lobe mass. - Portal hypertension, splenomegaly. Trace ascites. -enlarged portacaval lymph node measuring about 1.5 cm which is new - Gallstone present. CT chest --> no evidence of metastatic disease ( 10/14/2024 ) -alpha-fetoprotein level --> 678 ( 10/11/2024 -PT 16.5, INR 1.3 - BUN/Creat: 8/0.6 -AST 98, ALT 40, alkaline phosphatase 370, bilirubin level 0.9. -WBC 4700, Hemoglobin and hematocrit -12.3/40, [place] [address]. OTHER IMPORTANT HISTORY: -portal hypertension -smoking present -depression. -hypertension INTERVAL HISTORY: She has come the clinic for the follow-up, accompanied by her daughter and in the office. Daughter called today with some concerns. Pt did get treatment last week. She got Tecentriq and Zirabev. Her radiation therapy to the head started on Friday. All week long her mentation has been off. She has been confused. She has been tired, often sleepingfor hours and unable to wake up. She is eating very little. For pain she is taking Morphine ER twice a day and some IR Morphine. Her pain is noted around her lower abdomen. She is taking Lorazepam prior to each Rad. Onc treatment. HISTORY OF PRESENT ILLNESS: Neha Marks is a 64 year old female with a history as outlined above. Currently here for f/u visit today. All week long, the family report that Neha has been tired. She sleeps a lot and has had periods of confusion. Denies persistent BEAUCHAMP. No blurred vision or double vision. Denies chest pain or shortness of breath.Has been incontinent of stool. Has had loose/ firm stools 3- 4 times a day. No urinary issues but mostly incontinent. See full ROS below Past Medical History: Diagnosis Date 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-repeat 3 years Chronic hepatitis C (HCC) Generalized anxiety disorder 07/03/2009 Menopause 09/11/2009 Age 46 OTHER 11/15/09 Genotype 1a Pneumonia due to organism as a child Past Surgical History: Procedure Laterality Date COLONOSCOPY W/ LESION REMOVAL, SNARE 05/20/2011 adentomatous tissue--repeat 3 years COLONOSCOPY, DIAGNOSTIC (RECTUM) 05/06/2019 hyperplastic polyps, repeat 5 yrs/COLONOSCOPY FLEXIBLE PROXIMAL DIAGNOSTIC performed by Leandro Torres MD at ENDOSCOPY [facility] EGD, FLEXIBLE, DIAGNOSTIC 05/06/2019 normal bx/ESOPHAGOGASTRODUODENOSCOPY (EGD), FLEXIBLE, TRANSORAL, DIAGNOSTIC performed by Leandro Torres MD at ENDOSCOPY [facility] EGD, FLEXIBLE, DIAGNOSTIC 06/20/2022 Portal hypertensive gastropathy, eso varices / ESOPHAGOGASTRODUODENOSCOPY (EGD), FLEXIBLE, TRANSORAL, DIAGNOSTIC performed by Leandro Torres MD at ENDOSCOPY [facility] INSER TUNN ACC DEV;5 YRS/OLDER Right 01/27/2025 INSERT TUNNELED CENTRAL VENOUS ACCESS WITH SUBQ PORT performed by Rambo Parker MD at OR [facility] IR BIOPSY 01/12/2025 LASIK SURGERY THUMB FX/DISLOC (MELÉNDEZ), REPAIR 2000 rt Social History Socioeconomic History Marital status: Spouse name: Not on file Number of children: Not on file Years of education: Not on file Highest education level: Not on file Occupational History Not on file Tobacco Use Smoking status: Former Current packs/day: 0.50 Average packs/day: 0.5 packs/day for 20.0 years (10.0 ttl pk-yrs) Types: Cigarettes Passive exposure: Never Smokeless tobacco: Never Tobacco comments: 10 per day Vaping Use Vaping status: Never Used Substance and Sexual Activity Alcohol use: No Drug use: No Sexual activity: Yes Partners: Male Comment: M 1988, vas Other Topics Concern Not on file Social History Narrative Not on file Social Needs Financial Resource Strain: Not on file Food Insecurity: Not on file Transportation Needs: Not on file Social Connections: Not on file Housing Stability: Not on file Review of patient's allergies indicates: No Known Allergies Current Outpatient Medications Medication Sig Dispense Refill Multiple Vitamins-Minerals (CENTRUM ADULTS) TABS Take 1 Tablet by mouth in the morning. QUEtiapine Fumarate 25 MG Oral Tablet (SEROquel) Take 1 Tablet by mouth at bedtime. 90 Tablet 3 Carvedilol 6.25 MG Oral Tablet (Coreg) Take 1 Tablet by mouth 2 times a day with morning and evening meals. 90 Tablet 3 Venlafaxine HCl ER 150 MG Oral Capsule Extended Release 24 Hour (Effexor XR) TAKE 1 CAPSULE BY MOUTH EVERY DAY DO NOT CUT, CRUSH, OR CHEW 90 Capsule 1 Venlafaxine HCl ER 75 MG Oral Capsule Extended Release 24 Hour (Effexor XR) TAKE 1 CAPSULE BY MOUTHDAILY. DO NOT CUT, CRUSH OR CHEW (TAKE WITH [id number] DAILY) 90 Capsule 1 Gabapentin 100 MG Oral Capsule (Neurontin) Take 1 Capsule by mouth in the morning and 1 Capsule at noon and 1 Capsule before bedtime. Slowly increase the dose over 3 weeks--Start with one capsule in the evening for the first week. Add the afternoon dose on week 2 and the morning dose on week 3.. 90Capsule 5 Ventolin HFA 108 (90 Base) MCG/ACT Inhalation Aerosol Solution Inhale 2 Puffs by mouth every 4 hours as needed for Wheezing. 6.7 g 3 Morphine Sulfate 15 MG Oral Tablet (Msir) Take 0.5 Tablets by mouth every 6 hours. 90 Tablet 0 Cholestyramine Light 4 GM Oral Packet (Prevalite) Take 1 Packet by mouth in the morning and 1 Packet before bedtime. (Patient not taking: Reported on 01/27/2025) 60 Packet 3 Fidaxomicin 200 MG Oral Tablet (Dificid) Take 1 Tablet by mouth in the morning and 1 Tablet before bedtime. (Patient not taking: Reported on 01/27/2025) 10 Tablet 0 Naloxone HCl 4 MG/0.1ML Nasal Liquid (Narcan Nasal) Administer 1 spray into 1 nostril for suspectedopioid overdose. Seek immediate medical attention. [email or web address] (Patient not taking: Reported on 01/27/2025) 2 Each 3 Morphine Sulfate ER 15 MG Oral Tablet Extended Release (MS Contin) Take 1 Tablet by mouth in the morning and 1 Tablet before bedtime. 60 Tablet 0 Prochlorperazine Maleate 10 MG Oral Tablet (Compazine) Take 1 Tablet by mouth every 6 hours as needed for Nausea. 60 Tablet 2 Ondansetron HCl 8 MG Oral Tablet (Zofran) Take 1 Tablet by mouth every 8 hours as needed for Nausea. 30 Tablet 3 Furosemide 20 MG Oral Tablet (Lasix) Take 1 Tablet by mouth in the morning. 30 Tablet 0 Spironolactone 25 MG Oral Tablet (Aldactone) Take 1 Tablet by mouth in the morning and 1 Tablet before bedtime. 60 Tablet 3 tiZANidine HCl 2 MG Oral Tablet (Zanaflex) TAKE 1 TABLET BY MOUTH DAILY AT BEDTIME NEEDED FOR MUSCLE SPASMS. 30 Tablet 0 Spironolactone 50 MG Oral Tablet (Aldactone) Take 1 Tablet by mouth in the morning and 1 Tablet before bedtime. 60 Tablet 2 Potassium Chloride ER 10 MEQ Oral Tablet Extended Release Take 1 Tablet by mouth in the morning. 30Tablet 2 Lidocaine-Prilocaine 2.5-2.5 % External Cream (Emla) APPLY TO SKIN OVER MEDIPORT & COVER 1HR PRIOR TO ACCESSING. 30 g 1 No current facility-administered medications for this visit. REVIEW OF SYSTEMS: Review of Systems Constitutional: Positive for appetite change and fatigue. Negative for chills and fever. HENT: Positive for trouble swallowing. Negative for mouth sores and sore throat. Respiratory: Negative. Cardiovascular: Positive for leg swelling and palpitations. Negative for chest pain. Gastrointestinal: Positive for abdominal pain and diarrhea. Genitourinary: Negative for difficulty urinating. Musculoskeletal: Positive for gait problem. Negative for back pain and neck pain. Skin: Negative for itching. Neurological: Positive for gait problem and headaches. Negative for numbness. Psychiatric/Behavioral: Positive for confusion. OBJECTIVE: Filed Vitals: 02/10/25 1156 BP: 135/79 Pulse: 90 Temp: 36.7 °C (98 °F) TempSrc: Tympanic SpO2: 89% Weight: 70.8 kg (156 lb 1.6 oz) Wt Readings from Last 5 Encounters: 02/10/25 70.8 kg (156 lb 1.6 oz) 02/02/25 77.3 kg (170 lb 6.4 oz) 01/27/25 79.2 kg (174 lb 9.7 oz) 01/19/25 79.2 kg (174 lb 8 oz) 01/14/25 77.2 kg (170 lb 3.1 oz) PHYSICAL EXAM: ECOG: Performance Status 2 = 60-70% Bedtime, < 50% daytime General Appearance: tired appearing patient in no acute distress, eyes closed, is unable to state year but [place] HEENT: Normal - No oral or pharyngeal masses, ulceration or thrush noted, no sinus tenderness Lymph Nodes: Normal - No palpable lymph nodes in the neck or supraclavicular areas Lungs/Thorax: Normal - Clear to auscultation Heart: Normal - Regular rate and rhythm, normal S1, S2, no appreciable murmurs, rubs, gallops Pulses/Extremities: Normal - 2+ throughout and symmetrical, no edema Abdomen: Normal - Soft, nontender, bowel sounds present, no appreciable hepatosplenomegaly, no palpable masses Musculoskeletal: Normal - No pain on palpation over bony prominence, no joint or bony deformity Neurologic: Asleep Eyes: PERRLA EOMI MS 3+ equal grasp bilateral LABS: Results for orders placed or performed in visit on 02/10/25 COMPREHENSIVE METABOLIC PANEL Result Value Ref Range BUN 9 6 - 20 mg/dL CREATININE 0.6 0.5 - 1.0 mg/dL EGFR >90 >=60 mL/min SODIUM 138 135 - 146 mmol/L POTASSIUM 3.4 (L) 3.5 - 5.1 mmol/L CHLORIDE 98 98 - 107 mmol/L CO2 29 22 - 32 mmol/L ANION GAP 11 7 - 15 mmol/L GLUCOSE 120 70 - 120 mg/dL Albumin 3.5 (L) 3.8 - 5.0 g/dL AST 126 (H) 10 - 35 U/L Alkaline Phosphatase 784 (H) 35 - 130 U/L Bilirubin, Total 1.7 (H) <=1.2 mg/dL CALCIUM 9.2 8.4 - 10.2 mg/dL Protein 6.9 6.0 - 8.3 g/dL ALT 33 10 - 35 U/L MAGNESIUM Result Value Ref Range Magnesium 1.9 1.5 - 2.6 mg/dL CBC Result Value Ref Range WBC 6.62 4.00 - 10.80 K/uL RBC 3.76 3.85 - 5.15 M/uL HGB 10.8 (L) 12.0 - 15.3 g/dL HCT 34.6 (L) 36.0 - 45.2 % MCV 92.0 81.5 - 97.5 fL MCH 28.7 27.0 - 34.0 pg MCHC 31.2 32.0 - 36.0 g/dL RDW 19.0 11.5 - 15.5 % PLT 64 (L) 140 - 400 K/uL MPV 11.7 6.6 - 11.1 fL DIFFERENTIAL, AUTOMATED Result Value Ref Range WBC 6.62 4.00 - 10.80 K/uL Neutrophils % 77.4 (H) 40.0 - 75.0 % Lymphocytes % 7.6 (L) 18.0 - 42.0 % Monocytes % 11.3 (H) 1.0 - 11.0 % Eosinophils % 3.2 0.0 - 6.0 % Basophils % 0.5 0.0 - 2.0 % Absolute Neutrophils 5.13 1.80 - 7.70 K/uL Absolute Lymphocytes 0.50 (L) 1.00 - 4.80 K/ul Absolute Monocytes 0.75 0.00 - 1.10 K/uL Absolute Eosinophils 0.21 0.00 - 0.70 K/uL Absolute Basophils 0.03 0.00 - 0.20 K/uL DIFFERENTIAL, TECHNOLOGIST REVIEW Result Value Ref Range NRBCs reviewed cbc, cmp with family IMAGING: PET-CT scan done on 01/26/2025: -1. Large ill-defined hypermetabolic hypodensity in the right hepatic lobe, consistent with known malignancy. 2. Hypermetabolic luz hepatis darren metastases. 3. Scattered hypermetabolic osseous metastases. 4. Scattered omental/peritoneal nodularity with background level activity, suspicious for carcinomatosis. ASSESSMENT AND PLAN: Hepatocellular carcinoma (segment 7 mass measuring 8.5 x 5 cm, LR 5 ). Left lobe of the liver smalllesion measuring 1.2 x 1.8 with LR 3. -cirrhosis of liver with evidence of portal hypertension , splenomegaly. -alpha-fetoprotein level --> 678 (10/11/2024). It was normal about 1 1/2 year before that. - Somnolence -Confusion - Change in bowel habits: IBS D/C - Elevated LFT - Chronic pain--using Morphine ER and Morphine IR - Discussed plan of care with Dr. Plunkett - hold MS Contin -use Morphine IR as needed -waiting for Ammonia level -hydrate well. Increase calories and protein in diet -go to ER with worsening symptoms ANTHONY Reyes I spent a total of 40-54 minutes (exact time 42 mins) on the date of service in preparation, delivery, and documentation of the care provided to Neha Marks excluding any time spent in the performance of separately billed services or time spent by another provider/QHP. documented in this encounter Nursing Notes * Liliane Nolasco CMA - 02/10/2025 11:57 AM EDT Patient identifed by name and birthdate Do you have any concerns about pain management for today's visit? Yes. Patient instructed to discuss pain concerns with provider during the visit today Living Will or Advance Directive for Health Care as noted on the problem list. [facility] is a way you can talk to your provider on line through e-mail. Would you like to sign up? I can activate it for you? ALREADY ACTIVE Filed Vitals: 02/10/25 1156 BP: 135/79 Pulse: 90 Temp: 36.7 °C (98 °F) TempSrc: Tympanic SpO2: 89% Weight: 70.8 kg (156 lb 1.6 oz) Patient was instructed to not get up on the exam table/exam chair until directed and assisted by their provider; patient is to remain seated in the chair/ wheelchair/ exam table/ exam chair for fall prevention and safety reasons. Patient is aware to have assistance to step down off exam table/exam chair with personnel. Patient voiced full comprehension of instructions. documented in this encounter Plan of Treatment Upcoming Encounters Date Type Department Care Team ([facility] st Contact Info) Description 02/22/2025 11:30 AM EDT Laboratory Laboratory Patient Service [address] [phone] [address] 02/23/2025 9:30 AM EDT Office Visit Hematology/Oncology [address] [place] [address] Tunde Plunkett MD [address] [place] [phone] 02/23/2025 10:00 AM EDT Hem/Onc Treatment Hematology/Oncology Treatment, [address] [phone] Denia, Chair 10 Hem Onc [address] [place] [address] 02/25/2025 11:00 AM EDT Office Visit [address] [phone] Jay Gonzales MD [address] [place] [phone] Scheduled Procedures Name Priority Associated Diagnoses [...] this encounter Medical Devices Implanted Type Area Daycare Assistant Device Identifier Shelf Expiration Date Model / Serial / Lot Port Implant [id number] Poly Cath - [id number] Implanted:Qty : 1 on 01/27/2025 by Rambo Parker MD at OR [facility] Right: Chest CR BARD : PERIPHERAL VASCULAR [id number] 12/17/2025 [id number] / / [id number] documented as of this encounter Visit Diagnoses Diagnosis Right shoulder pain, unspecified chronicity- Primary Wheezing Limited range of motion (ROM) of shoulder Clostridium difficile enteritis Intestinal infection due to clostridium difficile Hepatocellular carcinoma (HCC) Malignant neoplasm of liver, primary 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) Chronic hepatitis C without mention of hepatic coma HTN, goal below 130/80 Unspecified essential hypertension Hepatocellular carcinoma (HCC)- Primary Malignant neoplasm of liver, primary 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 Question Answer Comments Discussion of Advance Directives occurred with: Patient Care Teams Farm Equipment Operator Relationship Specialty Start Date End Date Jay Gonzales MD [address] [place] [phone] PCP - General Family Medicine 09/13/22 documented as of this encounter
--- OUTSIDE RECORDS SUMMARY | 2025-02-12 16:07 | External Medical Summary | Summary of Care ---
Author Name Unknown Organization [facility] Address [address] [facility] [place] [address] Phone [phone] Care Team Providers Care Wheel Alignment Technician Name Role Phone Jay Gonzales MD Primary Care Provi [facility] Reason for Visit * Reason Onset Date Comments Advice 02/03/2025 ramon Encounter Details Date Type Department Care Team (Late st Contact Info) Description 02/03/2025 Telephone Hematology/Oncology [facility] [address] [place] [address] Tunde Plunkett MD [address] [place] [address] Advice (ramon) Allergies No known active allergiesdocumented [...] NOT CUT, CRUSH OR CHEW (TAKE WITH [id number] DAILY) 90 Capsule 1 5 Active Gabapentin [...] suspected opioid overdose. Seek immediate medical attention. [email or web address]/[email or web address]?[email or web address] 2 Each 3 5 Active Additional Information [...] documented in this encounter Miscellaneous Notes * Addendum Note - Maicol Orta LPN - 02/04/2025 12:11 PM EDTAddended by: MAICOL ORTA on: 02/04/2025 12:11 PM Modules accepted: Orders * Telephone Encounter - Maicol Orta LPN - 02/04/2025 11:46 AM EDT Spoke with patient's Daughter Gibran, she states the patient has an appointment with [facility] Rad/Onc next 02/09/2025. She is requesting the lab order for the "one week lab" faxed to [facility] so thepatient can have the lab work completed while she is at the hospital. Upon chart review, per Nursing Note by Krystian Rodriguez RN on 02/02/2025: "Patient will have CMP rechecked in 1 seek, okay to have done in [place] per Dr. Plunkett on 02/09." Informed Gibran the lab order willbe faxed to [facility] lab per her request. Per Daughter's request will cancel lab appointment at the Labin [place]. Lab order for CMP faxed. * Telephone Encounter - Maicol Orta LPN - 02/04/2025 8:58 AM EDT Attempted to contact patient's daughter Gibran, unable to leave a voicemail due to "voicemail box not being set up". Will re-attempt at a later time. * Telephone Encounter - Samantha Strange RN - 02/04/2025 8:47 AM EDT 02/22/25 labs are for treatment- should be drawn at [facility] to make sure we have results for her treatment 02/23. Benny: please call patients daughter to let her know. If they want to switch from the [place] lab to a different [facility] lab 02/22 they can, patient could also come here at 9am on 02/23 to have lab work drawn before seeing Dr Plunkett * Telephone Encounter - Charo Jo OSA - 02/03/2025 4:25 PM EDT Pts daughter callsushma and she has and appt 02/22 at [facility] she is asking for her labs to be faxedover there so she can get them while she is there fax: [phone] documented in this encounter Plan of Treatment Upcoming Encounters Date Type Department Care Team ([facility] st Contact Info) Description 02/22/2025 11:30 AM EDT Laboratory [facility], [address] [phone] [place] [address] [address] 02/23/2025 9:30 AM EDT Office Visit Hematology/Oncology [address] [place] [address] Tunde Plunkett MD [address] [place] [address] 02/23/2025 10:00 AM EDT Hem/Onc Treatment Hematology/Oncology Treatment, [place] [address] [place] [address] Denia, Chair 10 Hem Onc [facility] [address] [facility] [place] [address] 02/25/2025 11:00 AM EDT Office Visit [facility] [address] [place] [phone] Jay Gonzales MD [address] [place] [phone] Scheduled Orders Name Type Priority Associated Diagnoses Orde r Schedule COMPREHENSIVE METABOLIC PANEL Lab Routine Hypokalemia Hepatocellular carcinoma (HCC) Expected: 02/09/2025 (Approximate), Expires: 03/06/2025 Scheduled Procedures Name Priority Associated Diagnoses Date/Ti [...] this encounter Medical Devices Implanted Type Area Aircraft Sheet Metal Mechanic Device Identifier Shelf Expiration Date Model / Serial / Lot Port Implant W8f Poly Cath - [id number] Implanted:Qty : 1 on 01/27/2025 by Rambo Parker MD at [facility] Right: Chest CR BARD : PERIPHERAL VASCULAR [id number] 12/17/2025 [id number] / / [id number] documented as of this encounter Visit Diagnoses Diagnosis Right shoulder pain, unspecified chronicity- Primary Wheezing Limited range of motion (ROM) of shoulder Clostridium difficile enteritis Intestinal infection due to clostridium difficile Hepatocellular carcinoma (HCC) Malignant neoplasm of liver, primary 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) Chronic hepatitis C without mention of hepatic coma HTN, goal below 130/80 Unspecified essential hypertension Hypokalemia- Primary Hypopotassemia Hepatocellular carcinoma (HCC) Malignant neoplasm of liver, primary documented in this encounter Advance Directives * Full Code (Latest Code Status on File) Date Activated Date Inactivated Comments 01/06/2025 5:26 AM 01/14/2025 8:43 PM This order r eflects the patients wishes and were consensually agreed upon. Question Answer Comments Discussion of Advance Directives occurred with: Patient Care Teams Wheel Alignment Technician Relationship Specialty Start Date End Date Jay Gonzales MD [address] [place] [phone] PCP - General Family Medicine 09/13/22 documented as of this encounter
--- OUTSIDE RECORDS SUMMARY | 2025-02-12 16:07 | External Medical Summary | Summary of Care ---
Author Name Unknown Organization [facility] Address [address] [place] [address] Phone [phone] Care Team Providers Care Basin Operator Name Role Phone Jay Gonzales MD Primary Care Provi syl Reason for Visit * Reason Comments Outpatient Testing Encounter Details Date Type Department Care Team (Late st Contact Info) Description 02/10/2025 11:10 AM EDT Laboratory Laboratory [facility] [address] [place] [address] [facility] [address] [facility] [place] [address] Hepatocellular carcinoma (HCC); Metastasis to bone (HCC) Allergies No known active allergiesdocumented as of [...] NOT CUT, CRUSH OR CHEW (TAKE WITH [id number] DAILY) 90 Capsule 1 5 Active Gabapentin [...] suspected opioid overdose. Seek immediate medical attention. [email or web address]/[email or web address]?v= [email or web address] 2 Each 3 5 Active Additional Information [...] Entry Date Author Yes 01/06/2025 6:09 PM JAVIERT Noni Molina RN documented in this encounter Plan of Treatment Upcoming Encounters Date Type Department Care Team (Late st Contact Info) Description 02/22/2025 11:30 AM EDT Laboratory Laboratory [facility] [address] [phone] [address] 02/23/2025 9:30 AM EDT Office Visit Hematology/Oncology [facility] [address] [facility] [place] [address] Tunde Plunkett MD [address] [place] [address] 02/23/2025 10:00 AM EDT Hem/Onc Treatment Hematology/Oncology Treatment, [place] [address] [facility] [place] [address] Denia, Chair 10 Hem Onc [address] [address] 02/25/2025 11:00 AM EDT Office Visit [address] [phone] Jay Gonzales MD [address] [place] [phone] Pending Results Name Type Priority Associated Diagnoses Date /Time AMMONIA Lab STAT Hepatocellular carcinoma (HCC) 02/10/2025 11:46 AM EDT Scheduled Procedures Name Priority Associated Diagnoses Date/Ti [...] encounter Medical Devices Implanted Type Area Project Engineering Manager Device Identifier Shelf Expiration Date Model / Serial / Lot Port Implant W8f Poly Cath - [id number] Implanted:Qty : 1 on 01/27/2025 by Rambo Parker MD at [facility] Right: Chest CR BARD : PERIPHERAL VASCULAR [id number] 12/17/2025 [id number] / / [id number] documented as of this encounter Procedures Procedure Name Priority Date/Time Associated Diagnosis Comments DIFFERENTIAL, AUTOMATED STAT 02/10/2025 11:46 AM EDT Hepatocellular carcinoma (HCC) Metastasis to bone (HCC) COMPREHENSIVE METABOLIC PANEL STAT 02/10/2025 11:46 AM EDT Hepatocellular carcinoma (HCC) Metastasis to bone (HCC) CBC STAT 02/10/2025 11:46 AM EDT Hepatocellular carcinoma (HCC) Metastasis to bone (HCC) CBC STAT 02/10/2025 11:46 AM EDT Hepatocellular carcinoma (HCC) Metastasis to bone (HCC) DIFFERENTIAL, TECHNOLOGIST REVIEW Routine 02/10/2025 11:46 AM EDT Hepatocellular carcinoma (HCC) Metastasis to bone (HCC) MAGNESIUM STAT 02/10/2025 11:46 AM EDT Hepatocellular carcinoma (HCC) Metastasis to bone (HCC) documented in this encounter Results * DIFFERENTIAL, TECHNOLOGIST REVIEW (02/10/2025 11:46 AM EDT) NRBCs 02/10/2025 12:34 PM EDT [facility] 56-02 Blood Venous blood specimen / Unknown Venipuncture / Unknown 02/10/2025 11:46 AM EDT 02/10/2025 11:46 AM EDT Tunde Plunkett MD LAB BLOOD ORDERABLES Final Res ult [facility] [address] [place] [address] * (ABNORMAL) DIFFERENTIAL, AUTOMATED (02/10/2025 11:46 AM EDT) WBC 6.62 4.00 - 10.80 K/uL 02/10/2025 12:34 PM EDT [facility] 56- Neutrophils % 77.4(H) 40.0 - 75.0 % 02/10/2025 12:34 PM EDT [facility] 56- Lymphocytes % 7.6(L) 18.0 - 42.0 % 02/10/2025 12:34 PM EDT [facility] 56 Monocytes % 11.3(H) 1.0 - 11.0 % 02/10/2025 12:34 PM EDT [facility] 56 Eosinophils % 3.2 0.0 - 6.0 % 02/10/2025 12:34 PM EDT [facility] 56- Basophils % 0.5 0.0 - 2.0 % 02/10/2025 12:34 PM EDT [facility] 56- Absolute Neutrophils 5.13 1.80 - 7.70 K/uL 02/10/2025 12:34 PM EDT [facility] 56- Absolute Lymphocytes 0.50(L) 1.00 - 4.80 K/ul 02/10/2025 12:34 PM EDT [facility] 56- Absolute Monocytes 0.75 0.00 - 1.10 K/uL 02/10/2025 12:34 PM EDT [facility] 56-02 Absolute Eosinophils 0.21 0.00 - 0.70 K/uL 02/10/2025 12:34 PM EDT [facility] 56-02 Absolute Basophils 0.03 0.00 - 0.20 K/uL 02/10/2025 12:34 PM EDT [facility] 56 Blood Venous blood specimen / Unknown Venipuncture / Unknown 02/10/2025 11:46 AM EDT 02/10/2025 11:46 AM EDT us Tunde Plunkett MD LAB BLOOD ORDERABLES Final Res ult [facility] 56 [address] [place] [address] * (ABNORMAL) CBC (02/10/2025 11:46 AM EDT) WBC 6.62 4.00 - 10.80 K/uL 02/10/2025 12:34 PM EDT [facility] 56 RBC 3.76 3.85 - 5.15 M/uL 02/10/2025 12:34 PM EDT [facility] 56 HGB 10.8(L) 12.0 - 15.3 g/dL 02/10/2025 12:34 PM EDT [facility] 56 HCT 34.6(L) 36.0 - 45.2 % 02/10/2025 12:34 PM EDT [address] MCV 92.0 81.5 - 97.5 fL 02/10/2025 12:34 PM EDT [address] MCH 28.7 27.0 - 34.0 pg 02/10/2025 12:34 PM EDT [place] [address] MCHC 31.2 32.0 - 36.0 g/dL 02/10/2025 12:34 PM EDT [facility] 56 RDW 19.0 11.5 - 15.5 % 02/10/2025 12:34 PM EDT [facility] 56 PLT 64(L) 140 - 400 K/uL 02/10/2025 12:34 PM EDT [facility] 56 MPV 11.7 6.6 - 11.1 fL 02/10/2025 12:34 PM EDT [facility] 56 Blood Venous blood specimen / Unknown Venipuncture / Unknown 02/10/2025 11:46 AM EDT 02/10/2025 11:46 AM EDT us Tunde Plunkett MD LAB BLOOD ORDERABLES Final Res ult [facility] [address] [place] [address] * MAGNESIUM (02/10/2025 11:46 AM EDT) Magnesium 1.9 1.5 - 2.6 mg/dL 02/10/2025 12:15 PM EDT [facility] 56 Blood Venous blood specimen / Unknown Venipuncture / Unknown 02/10/2025 11:46 AM EDT 02/10/2025 11:46 AM EDT us Tunde Plunkett MD LAB BLOOD ORDERABLES Final Res ult [facility] [address] [place] [address] * (ABNORMAL) COMPREHENSIVE METABOLIC PANEL (02/10/2025 11:46 AM EDT) BUN 9 6 - 20 mg/dL 02/10/2025 12:15 PM EDT [address] CREATININE 0.6 0.5 - 1.0 mg/dL 02/10/2025 12:15 PM EDT [address] EGFR >90 >=60 mL/min 02/10/2025 12:15 PM EDT [facility] 56 Comment:eGFR is calculated b ased on the CKD-EPI 2020 equation. SODIUM 138 135 - 146 mmol/L 02/10/2025 12:15 PM EDT [facility] 56 POTASSIUM 3.4(L) 3.5 - 5.1 mmol/L 02/10/2025 12:15 PM EDT [facility] 56 CHLORIDE 98 98 - 107 mmol/L 02/10/2025 12:15 PM EDT [facility] 56- CO2 29 22 - 32 mmol/L 02/10/2025 12:15 PM EDT [facility] 56- ANION GAP 11 7 - 15 mmol/L 02/10/2025 12:15 PM EDT [facility] 56 GLUCOSE 120 70 - 120 mg/dL 02/10/2025 12:15 PM EDT [facility] 56 Albumin 3.5(L) 3.8 - 5.0 g/dL 02/10/2025 12:15 PM EDT [facility] 56 AST 126(H) 10 - 35 U/L 02/10/2025 12:15 PM EDT [facility] [place] 56 Alkaline Phosphatase 784(H) 35 - 130 U/L 02/10/2025 12:15 PM EDT [facility] 56 Bilirubin, Total 1.7(H) <=1.2 mg/dL 02/10/2025 12:15 PM EDT [place] [address] CALCIUM 9.2 8.4 - 10.2 mg/dL 02/10/2025 12:15 PM EDT [place] [address] Protein 6.9 6.0 - 8.3 g/dL 02/10/2025 12:15 PM EDT [facility] [place] [address] ALT 33 10 - 35 U/L 02/10/2025 12:15 PM EDT [facility] 56 Blood Venous blood specimen / Unknown Venipuncture / Unknown 02/10/2025 11:46 AM EDT 02/10/2025 11:46 AM EDT Tunde Plunkett MD LAB BLOOD ORDERABLES Final Res ult [facility] [address] [place], [place] [id number] documented in this encounter Visit Diagnoses Diagnosis Right shoulder pain, unspecified chronicity- Primary Wheezing Limited range of motion (ROM) of shoulder Clostridium difficile enteritis Intestinal infection due to clostridium difficile Hepatocellular carcinoma (HCC) Malignant neoplasm of liver, primary 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 Question Answer Comments Discussion of Advance Directives occurred with: Patient Care Teams Basin Operator Relationship Specialty Start Date End Date Jay Gonzales MD [address] [place] [phone] PCP - General Family Medicine 09/13/22 documented as of this encounter
--- OUTSIDE RECORDS SUMMARY | 2025-02-12 16:07 | External Medical Summary ---
Author Name Unknown Address Unknown Organization K09:[facility] [address] Laboratory Report Ordering Provider Test Date Status JEREMIAH CROCKETT 02/10/2025 11:46:20 Final Observation Date Value Abnormality Reference (Units ) Status WBC, Total 02/10/2025 11:46:20 6.62 4.00-10.8 0 (K/uL) Final RBC 02/10/2025 11:46:20 3.76 3.85-5.15 (M/uL) Final Hemoglobin 02/10/2025 11:46:20 10.8 Below low normal 12 .0-15.3 (g/dL) Final HCT 02/10/2025 11:46:20 34.6 Below low normal 36. 0-45.2 (%) Final MCV 02/10/2025 11:46:20 92.0 81.5-97.5 (fL) Final MCH 02/10/2025 11:46:20 28.7 27.0-34.0 (pg) Final MCHC 02/10/2025 11:46:20 31.2 32.0-36.0 (g/dL) Final RDW 02/10/2025 11:46:20 19.0 11.5-15.5 (%) Final Platelets 02/10/2025 11:46:20 64 Below low normal 140 -400 (K/uL) Final MPV 02/10/2025 11:46:20 11.7 6.6-11.1 ( fL) Final Performing Location [facility] [place] [address]
--- OUTSIDE RECORDS SUMMARY | 2025-02-12 16:07 | External Medical Summary | Summary of Care ---
Author Name Unknown Organization [facility] Address [address] [facility] [place] [address] Phone [phone] Care Team Providers Care Medicine Technologist Name Role Phone Jay Gonzales MD Primary Care Provi [facility] Encounter Details Date Type Department Care Team (Latest Contact Info) Description 02/02/2025 12:00 PM EDT [facility] [place] [address] [place] [phone] Tunde Plunkett MD [address] [place] [id number] Hepatocellular carcinoma (HCC)*; Metastasis to bone (HCC); Hypokalemia; Leg edema Allergies No known active allergiesdocumented as of this encounter (statuses as of 02/02/2025) Medications Multiple Vitamins-Minera ls (CENTRUM ADULTS) TABS [...] NOT CUT, CRUSH OR CHEW (TAKE WITH [id number] DAILY) 90 Capsule 1 5 Active Gabapentin [...] suspected opioid overdose. Seek immediate medical attention. [email or web address]/[email or web address] 2 Each 3 5 Active Additional Information [...] the morning. 30 Tablet 2 5 Active documented as of this encounter (statuses as of 02/02/2025) Active Problems Problem Noted Date Diagnosed Date [...] as of this encounter (statuses as of 02/02/2025) Resolved Problems Problem Noted Date Diagnosed Date Resolved Date Acute hypoxic respiratory failure 01/06/2025 01/07/2025 Cholelithiasis 01/06/2025 01/13/2025 OTHER 11/15/2009 08/20/2018 Overview (11/20/2009): Genotype 1a Chronic hepatitis C 09/21/2009 08/20/20 18 documented as of this encounter (statuses as of 02/02/2025) Immunizations Name Administration Dates Next Due TDAP, [...] documented in this encounter Progress Notes * Tunde Plunkett MD - 02/02/2025 12:35 PM EDT Hematology/Oncology Outpatient Consult Note Ena Loza [address] [facility] [place] [address] NEHA MARKS MR # [id number] :1960 64-year-old female, Date of consultation:11/12/2024 DIAGNOSIS: Hepatocellular carcinoma (segment 7 mass measuring [...] Hemoglobin and hematocrit -12.3/40, [place] [address]. OTHER IMPORTANT HISTORY: -portal hypertension -smoking present -depression. -hypertension INTERVAL HISTORY: She has come the clinic for the follow-up, accompanied by her daughter in the office. Recently she was admitted at [facility], reviewed hospital records, she had increasing pain in the right shoulder and right upper abdominal region, further workup showed metastatic disease involving the right scapula, posterior pleural-based mass in the right chest, skull bone ( left frontal) metastatic disease, she received 1 dose of radiation treatment ( 800 cGy) to the right 6th rib and scapular lesion on 01/14/2025. Now after starting long-acting opioid therapy, her pain is under control, no nausea no vomiting, nodiarrhea, no constipation, lower back pain present, current weight around 170 lb, she is noncompliant about salt intake, bilateral leg edema present, has some distention of the abdomen, she is on Lasix 20 mg every day and Aldactone 25 mg twice a day. No fever. No increasing headache, no focal neurological symptoms. Past Medical History: Diagnosis Date Benign neoplasm [...] performed by Leandro Torres MD at ENDOSCOPY [facility] EGD, FLEXIBLE, DIAGNOSTIC 05/06/2019 normal bx/ESOPHAGOGASTRODUODENOSCOPY (EGD), FLEXIBLE, TRANSORAL, DIAGNOSTIC performed by Leandro Torres MD at ENDOSCOPY [facility] EGD, FLEXIBLE, DIAGNOSTIC 06/20/2022 Portal hypertensive gastropathy, eso varices / ESOPHAGOGASTRODUODENOSCOPY (EGD), FLEXIBLE, TRANSORAL, DIAGNOSTIC performed by Leandro Torres MD at ENDOSCOPY [facility] INSER TUNN ACC DEV;5 YRS/OLDER Right 01/27/2025 INSERT TUNNELED CENTRAL VENOUS ACCESS WITH SUBQ PORT performed by Rambo Parker MD at OR [facility] IR BIOPSY 01/12/2025 LASIK SURGERY THUMB FX/DISLOC (MELÉNDEZ), REPAIR 2000 rt Current Outpatient Medications Medication Sig Dispense Refill [...] NOT CUT, CRUSH OR CHEW (TAKE WITH [id number] DAILY) 90 Capsule 1 Gabapentin 100 MG [...] for suspectedopioid overdose. Seek immediate medical attention. [email or web address]=[email or web address] (Patient not taking: Reported on 01/27/2025) 2 [...] NEEDED FOR MUSCLE SPASMS. 30 Tablet 0 No current facility-administered medications for this visit. Facility-Administered Medications Ordered in Other Visits Medication Dose Route Frequency Provider Last Rate Last Admin NSS infusion Intravenous PRN Tunde Plunkett MD sodium chloride 0.9 % flush/inj 10 mL 10 mL IV Push PRN Tunde Plunkett MD sodium chloride 0.9 % flush/inj 20 mL 20 mL IV Push PRN Tunde Plunkett MD Atezolizumab (Tecentriq) 1,200 mg in NSS 250 mL infusion 1,200 mg IV Piggyback Once Tunde Plunkett MD bevaCIZumab-bvzr (Zirabev) 1,200 mg in NSS 100 mL infusion 15 mg/kg (Treatment Plan Recorded) IV Piggyback Once Tunde Plunkett MD diphenhydrAMINE (Benadryl) inj 50 mg 50 mg IV Push Once PRN Tunde Plunkett MD Hydrocortisone Sod Suc (PF) (Solu-Cortef) inj 100 mg 100 mg IV Push Once PRN Tunde Plunkett MD EPINEPHrine 1 MG/ML inj 0.3 mg 0.3 mg Intramuscular Once PRN Tunde Plunkett MD meperidine (Demerol) 25 MG/ML inj 25 mg 25 mg Intramuscular Once PRN Tunde Plunkett MD oxygen GAS Inhalation Oxygen Tunde Plunkett MD Family History Problem Relation Name Age of Onset No Past Hx Mother Gastro-intestinal disorder Father of cirrhosis in fifties, etoh Lung Disorder Sister copd Social History Socioeconomic History Marital status: Spouse [...] on file Housing Stability: Not on file On Exam: There were no vitals taken for this visit. Constitutional: Patient is alert, cooperative and oriented x 3. Well built woman, Patient is in no acute distress. HEENT: No icterus, no pallor, Throat and pharynx normal. Sinuses are non-tender. Neck: Supple and without lymphadenopathy or masses. No JVD. No Palpable supraclavicular lymph nodes. Lungs: Clear to auscultation. Bilateral symmetric air entry. No wheezing or rhonchi. Cardiovascular: Normal heart sounds, no murmurs.Regular rate and rhythm. Abdomen: Distention of the abdomen present. Neurological: No gross focal neurological deficit; walks with a normal gait. Extremities: No finger clubbing, No cyanosis. leg edema. Skin:: No skin rash. SPINE: No spinal or paraspinal tenderness. LABS: Alpha-Fetoprotein Tumor Marker Latest Ref Rng 0.0 - 8.3 ng/mL 10/10/2020 6.5 04/10/2021 6.7 03/13/2023 5.7 10/11/2024 678.6 (H) 01/05/2025 10,274.0 (H) 01/11/2025 8,672.0 (H) 01/21/2025 11,402.0 (H) Blood workup done on 02/02/2025: -BUN/Creat: 8/0.4, potassium 3.0 AST 96, ALT 28, alkaline phosphatase 660, bilirubin level 1.2. -WBC 4700, Hemoglobin and hematocrit -10.4/34, Platelet count of 62,000 (02/01/2025). IMAGING: PET-CT scan done on 01/26/2025: -1. Large ill-defined hypermetabolic hypodensity in the right hepatic lobe, consistent with known malignancy. 2. Hypermetabolic luz hepatis darren metastases. 3. Scattered hypermetabolic osseous metastases. 4. Scattered omental/peritoneal nodularity with background level activity, suspicious for carcinomatosis. ASSESSMENT AND PLAN: 64-year-old female, a case of hepatitis-C positive, treated with Harvoni in 2014, has developed cirrhosis of liver with portal hypertension, splenomegaly, no GI bleed in the past, mild thrombocytopenia with a Platelet count around 60,000 range. She had normal AFP earlier in 2022, no liver lesion noted in the ultrasound of the liver done in 2022 Now she has significantly elevated AFP around 678 as well as new liver lesion about 8.5 x 5 cm in segment 7 with LR 5. Another smaller 1.2 x 1.8 cm lesion in the left lobe of the liver with LR 3. While preparing for the liver treatment, she started having increasing pain in the right scapular region, subsequent workup showed metastatic disease involving the right scapula ( biopsy-proven), right 6th rib, left frontal skull bone. She received radiation treatment x1 dose ( 800 cGy) to the right 6th rib and scapular lesion on 12/2024 when she was admitted at [facility]. I reviewed with them regarding the PET-CT scan findings which shows large right hepatic lobe mass, hypermetabolic luz hepatis lymphadenopathy, multiple bony metastatic disease, possible peritoneal metastasis. Port placement done recently Reviewed blood workup done yesterday and today, overall stable blood workup, mild hypokalemia noted. She is on Lasix 20 mg every day, has some leg edema as well as dizziness from abdomen, also on Aldactone. Advised him to take extra Lasix ( 20 mg ) once or twice in a week for symptomatic treatment of the swelling, would like to increase the dose of Aldactone to 50 mg twice a day. Because of low potassium, would like to start oral potassium 10 mEq every day. Will proceed with atezolizumab and bevacizumab as we planned. Will proceed with radiation treatment to the scalp lesion at [facility] starting next week for 5 days. She will continue MS Contin 15 mg every 12 hourly and immediate release morphine sulfate 7.5 mg every 4 to 6 hourly for the breakthrough pain. Will see her in about [address] Tunde Plunkett Hem/Onc (This note was completed using the dictation program Fluency Direct. As such, there may be misspellings word substitutions, or other variations that should not change the essence of the clinical content of this encounter note. If there is need for further clarification, please direct questions to the provider listed above.) documented in this encounter Plan of Treatment Upcoming Encounters Date Type Department Care Team (Late st Contact Info) Description 02/09/2025 11:30 AM EDT Laboratory Laboratory Patient Service [place], [address] [place] [phone] [place], Lab [address] [place] [id number] 02/22/2025 11:30 AM EDT Laboratory Laboratory Patient Service [place], [address] [phone] [place] [address] [facility] [place] [address] 02/23/2025 9:30 AM EDT Office Visit Hematology/Oncology [facility] [address] [facility] [place], [place] [phone] Tunde Plunkett MD [address] [facility] [place], [place] [address] 02/23/2025 10:00 AM EDT Hem/Onc Treatment Hematology/Oncology Treatment, [place] [address] [facility], [place] [phone] Denia, Chair 10 Hem Onc [facility] [address] [facility] [place], [place] [address] 02/25/2025 11:00 AM EDT Office Visit [facility] [address] [place] [phone] Jay Gonzales MD [address] [place] [phone] Scheduled Procedures Name Priority Associated Diagnoses [...] this encounter Medical Devices Implanted Type Area Visual Display Manager Device Identifier Shelf Expiration Date Model / Serial / Lot Port Implant [id number] Poly Cath - [id number] Implanted:Qty : 1 on 01/27/2025 by Rambo Parker MD at OR [facility] Right: Chest CR BARD : PERIPHERAL VASCULAR [id number] 12/17/2025 [id number] / / [id number] documented as of this encounter Visit Diagnoses [...] malignant neoplasm of bone and bone marrow Hypokalemia Hypopotassemia Leg edema Edema documented in this encounter Advance Directives * Full Code (Latest Code Status on File) Date Activated Date Inactivated Comments 01/06/2025 5:26 AM 01/14/2025 8:43 PM This order r eflects the patients wishes and were consensually agreed upon. Question Answer Comments Discussion of Advance Directives occurred with: Patient Care Teams Medicine Technologist Relationship Specialty Start Date End Date Jay Gonzales MD [address] [place] [phone] PCP - General Family Medicine 09/13/22 documented as of this encounter
--- OUTSIDE RECORDS SUMMARY | 2025-02-12 16:07 | External Medical Summary | Summary of Care ---
Author Name Unknown Organization [facility] Address [address] [place] [address] Phone [phone] Care Team Providers Care Audit Specialist Name Role Phone Jay Gonzales MD Primary Care Provi syl Reason for Visit * Reason Onset Date Comments Advice 02/10/2025 Dimitrios Encounter Details Date Type Department Care Team (Late st Contact Info) Description 02/10/2025 Telephone Hematology/Oncology [facility] [address] [place] [address] Services, Scheduling [address] [place] [address] Advice (Dimitrios) Allergies No known active allergiesdocumented [...] NOT CUT, CRUSH OR CHEW (TAKE WITH [id number] DAILY) 90 Capsule 1 5 Active Gabapentin [...] suspected opioid overdose. Seek immediate medical attention. [email or web address] 2 Each 3 5 Active Additional Information [...] encounter Miscellaneous Notes * Addendum Note - Nakia Strange RN - 02/10/2025 10:25 AM EDTAddended by: NAKIA STRANGE on: 02/10/2025 10:25 AM Modules accepted: Orders * Telephone Encounter - Nakia Strange RN - 02/10/2025 8:35 AM EDT Called and spoke to patients daughter. She states that patient seemed to be doing well until Easter; however, since then has seemed very tired, [...] 02/22/2025 11:30 AM EDT Laboratory Laboratory Patient [address] [phone] [place], [address] [address] 02/23/2025 9:30 AM EDT Office Visit Hematology/Oncology [address] [place] [phone] Tunde Plunkett MD [address] [facility] [place], [place] [address] 02/23/2025 10:00 AM EDT Hem/Onc Treatment Hematology/Oncology Treatment, [place] [address] [place] [phone] Denia, Chair 10 Hem Onc [facility] [address] [facility] [place], [place] [address] 02/25/2025 11:00 AM EDT Office Visit [facility] [address] [place] [phone] Jay Gonzales MD [address] [place] [phone] Pending Results Name Type Priority Associated Diagnoses Date /Time CBC WITH WBC DIFFERENTIAL Lab STAT Hepatocellular carcinoma (HCC) Metastasis to bone (HCC) 02/10/2025 11:46 AM EDT Scheduled Orders Name Type Priority Associated Diagnoses Orde r Schedule CBC WITH WBC DIFFERENTIAL Lab STAT Hepatocellular carcinoma (HCC) Metastasis to bone (HCC) Expected: 02/10/2025 (Approximate), Expires: 02/10/2026 URINALYSIS, REFLEX TO MICROSCOPIC Lab Routine Hepatocellular carcinoma (HCC) Metastasis to bone (HCC) Expected: 02/10/2025, Expires: 02/10/2026 CULTURE, URINE, QUANTITATIVE Lab Routine Hepatocellular carcinoma (HCC) Metastasis to bone (HCC) Encounter for antineoplastic chemotherapy Altered mental status, unspecified Expected: 02/10/2025, Expires: 02/10/2026 Scheduled Procedures Name Priority Associated Diagnoses Date/Ti [...] this encounter Medical Devices Implanted Type Area Medical Practice Manager Device Identifier Shelf Expiration Date Model / Serial / Lot Port Implant W8f Poly Cath - [id number] Implanted:Qty : 1 on 01/27/2025 by Rambo Parker MD at OR [facility] Right: Chest CR BARD : PERIPHERAL VASCULAR [id number] 12/17/2025 [id number] / / [id number] documented as of this encounter Results * MAGNESIUM (02/10/2025 11:46 AM EDT) Magnesium 1.9 1.5 - 2.6 mg/dL 02/10/2025 12:15 PM EDT [facility]- Blood Venous blood specimen / Unknown Venipuncture / Unknown 02/10/2025 11:46 AM EDT 02/10/2025 11:46 AM EDT us Tunde Plunkett MD LAB BLOOD ORDERABLES Final Res ult [facility] [address]- [address] [place] [phone] * (ABNORMAL) COMPREHENSIVE METABOLIC PANEL (02/10/2025 11:46 AM EDT) BUN 9 6 - 20 mg/dL 02/10/2025 12:15 PM EDT [facility]- CREATININE 0.6 0.5 - 1.0 mg/dL 02/10/2025 12:15 PM EDT [facility]- EGFR >90 >=60 mL/min 02/10/2025 12:15 PM EDT [facility]- Comment:eGFR is calculated b ased on the CKD-EPI 2021 equation. SODIUM 138 135 - 146 mmol/L 02/10/2025 12:15 PM EDT [facility] 56 POTASSIUM 3.4(L) 3.5 - 5.1 mmol/L 02/10/2025 12:15 PM EDT [facility] 56 CHLORIDE 98 98 - 107 mmol/L 02/10/2025 12:15 PM EDT [address] CO2 29 22 - 32 mmol/L 02/10/2025 12:15 PM EDT [address] ANION GAP 11 7 - 15 mmol/L 02/10/2025 12:15 PM EDT [address] GLUCOSE 120 70 - 120 mg/dL 02/10/2025 12:15 PM EDT [address] Albumin 3.5(L) 3.8 - 5.0 g/dL 02/10/2025 12:15 PM EDT [address] AST 126(H) 10 - 35 U/L 02/10/2025 12:15 PM EDT [address] Alkaline Phosphatase 784(H) 35 - 130 U/L 02/10/2025 12:15 PM EDT [facility] 56 Bilirubin, Total 1.7(H) <=1.2 mg/dL 02/10/2025 12:15 PM EDT [address] CALCIUM 9.2 8.4 - 10.2 mg/dL 02/10/2025 12:15 PM EDT [facility] 56 Protein 6.9 6.0 - 8.3 g/dL 02/10/2025 12:15 PM EDT [facility] 56 ALT 33 10 - 35 U/L 02/10/2025 12:15 PM EDT [facility] 56 Blood Venous blood specimen / Unknown Venipuncture / Unknown 02/10/2025 11:46 AM EDT 02/10/2025 11:46 AM EDT us Tunde Plunkett MD LAB BLOOD ORDERABLES Final Res ult [facility] [address] [place] [address] documented in this encounter Visit Diagnoses Diagnosis [...] malignant neoplasm of bone and bone marrow Encounter for antineoplastic chemotherapy Altered mental status, unspecified documented in this encounter Advance Directives * Full Code (Latest Code Status on File) Date Activated Date Inactivated Comments 01/06/2025 5:26 AM 01/14/2025 8:43 PM This order r eflects the patients wishes and were consensually agreed upon. Question Answer Comments Discussion of Advance Directives occurred with: Patient Care Teams Audit Specialist Relationship Specialty Start Date End Date Jay Gonzales MD [address] [place] [phone] PCP - General Family Medicine 09/13/22 documented as of this encounter
--- OUTSIDE RECORDS SUMMARY | 2025-02-12 16:07 | External Medical Summary ---
Author Name Unknown Address Unknown Organization [facility] [address] [place] [address] Laboratory Report Ordering Provider Test Date Status JEREMIAH CROCKETT 02/10/2025 11:46:20 Final Observation Date Value Abnormality Reference (Units ) Status BUN 02/10/2025 11:46:20 9 6-20 (mg/dL) Final Creatinine 02/10/2025 11:46:20 0.6 0.5-1.0 (mg/dL) Final Glomerular filtration rate/1.73 sq M.predicted [Volume Rate/Area] in Serum, Plasma or Blood by Creatinine-based formula (CKD-EPI) 02/10/2025 11:46:20 >90 >=60 (mL/min) Final eGFR is calculated based on the CKD-EPI 2020 equation. Sodium 02/10/2025 11:46:20 138 135-146 (m mol/L) Final Potassium 02/10/2025 11:46:20 3.4 Below low normal 3.5 -5.1 (mmol/L) Final Cl 02/10/2025 11:46:20 98 98-107 (mm ol/L) Final CO2 02/10/2025 11:46:20 29 22-32 (mmo l/L) Final Anion gap 02/10/2025 11:46:20 11 7-15 (mmol /L) Final Glucose 02/10/2025 11:46:20 120 70-120 (mg /dL) Final Albumin 02/10/2025 11:46:20 3.5 Below low normal 3.8 -5.0 (g/dL) Final AST (Aspartate aminotransferase) 02/10/2025 11:46:20 126 Above high normal 10-35 (U/L) Final Alk Phos 02/10/2025 11:46:20 784 Above high normal 35 -130 (U/L) Final Bilirubin, Total 02/10/2025 11:46:20 1.7 Above high no rmal <=1.2 (mg/dL) Final Calcium 02/10/2025 11:46:20 9.2 8.4-10.2 ( mg/dL) Final Protein 02/10/2025 11:46:20 6.9 6.0-8.3 (g /dL) Final ALT (Alanine aminotransferase) 02/10/2025 11:46:20 33 10-35 (U/L) Gilles white Performing Location [facility] [address] [place] [address]
--- OUTSIDE RECORDS SUMMARY | 2025-02-12 16:07 | External Medical Summary ---
Author Name Unknown Address Unknown Organization [facility] [address] Laboratory Report Ordering Provider Test Date Status JEREMIAH CROCKETT 02/10/2025 11:46:20 Final Observation Date Value Abnormality Reference (Units ) Status SYNC LEUKOCYTES IN BLOOD BY AUTOMATED COUNT 02/10/2025 11:46:20 6.62 4.00-10.80 (K/uL) Final Segs 02/10/2025 11:46:20 77.4 Above high normal 40.0-75.0 (%) Final Lymphs % 02/10/2025 11:46:20 7.6 Below low normal 18.0-42.0 (%) Final Monos 02/10/2025 11:46:20 11.3 Above high normal 1.0-11.0 (%) Final Eosinophils 02/10/2025 11:46:20 3.2 0.0-6.0 (%) Final Basos 02/10/2025 11:46:20 0.5 0.0-2.0 (%) Final Absolute Segs 02/10/2025 11:46:20 5.13 1.80-7.70 (K/uL) Final Lymphs, absolute 02/10/2025 11:46:20 0.50 Below low normal 1.00-4.80 (K/ul) Final Monos, Abs 02/10/2025 11:46:20 0.75 0.00-1.10 (K/uL) Final Eos, Abs 02/10/2025 11:46:20 0.21 0.00-0.70 (K/uL) Final Basos, Abs 02/10/2025 11:46:20 0.03 0.00-0.20 (K/uL) Final Performing Location [facility] [place] [address]
--- OUTSIDE RECORDS SUMMARY | 2025-02-12 16:07 | External Medical Summary | Summary of Care ---
Author Name Unknown Organization [facility] Address [address] [place] [address] Phone [phone] Care Team Providers Care Commercial Property Manager Name Role Phone Jay Gonzales MD Primary Care Provi syl Reason for Visit * Reason Comments Chemotherapy C1/D1 - Tecentriq, Z irabev * Episode Based Medications (Routine) - Authorized Specialty Diagnoses / Procedures Referred By Contac t Referred To Contact Diagnoses HCC (hepatocellular carcinoma) (HCC) Metastasis to bone (HCC) Encounter for antineoplastic chemotherapy Procedures MA INJ, ATEZOLIZUMAB,10 MG MA INJ., ZIRABEV, 10 MG Tunde Plunkett MD [address] [place] [address] [place] [address] Phone: tel: fax: Hematology/Oncology Treatment, [address] [address] Phone: tel: fax: Referral ID Status Reason Start Date Expiration Date V isits Requested Visits Authorized [id number] Authorized 01/19/2025 10/19/2099 [id number] Encounter Details Date Type Department Care Team (Latest Contact Info) Description 02/02/2025 11:00 AM EDT Hem/Onc Treatment Hematology/Oncolog y Treatment, [address] [address] Denia, Chair 3 Hem Onc [address] [place] [address] HCC (hepatocellular carcinoma) (HCC)*; Hepatocellular carcinoma (HCC); Metastasis to bone (HCC); Encounter for antineoplastic chemotherapy Allergies No known active allergiesdocumented as of this encounter (statuses as of 02/03/2025) Medications Multiple Vitamins-Minera ls (CENTRUM ADULTS) TABS [...] NOT CUT, CRUSH OR CHEW (TAKE WITH [id number] DAILY) 90 Capsule 1 5 Active Gabapentin [...] suspected opioid overdose. Seek immediate medical attention. [email or web address] 2 Each 3 5 Active Additional Information [...] FOR MUSCLE SPASMS. 30 Tablet 5 Active documented as of this encounter (statuses as of 02/03/2025) Active Problems Problem Noted Date Diagnosed Date [...] as of this encounter (statuses as of 02/03/2025) Resolved Problems Problem Noted Date Diagnosed Date Resolved Date Acute hypoxic respiratory failure 01/06/2025 01/07/2025 Cholelithiasis 01/06/2025 01/13/2025 OTHER 11/15/2009 08/20/2018 Overview (11/20/2009): Genotype 1a Chronic hepatitis C 09/21/2009 08/20/20 18 documented as of this encounter (statuses as of 02/03/2025) Immunizations Name Administration Dates Next Due TDAP, [...] Sign Reading Time Taken Comments Blood Pressure 122/72 02/02/2025 11:54 AM EDT Pulse 88 02/02/2025 11:54 AM EDT Temperature 37.3 °C (99.1 °F) 02/02/2025 1 1:54 AM EDT Respiratory Rate 18 02/02/2025 11:5 4 AM EDT Oxygen Saturation 90% 02/02/2025 11: 54 AM EDT pt typically runs low 90% per daughter Inhaled Oxygen Concentration - - Weight 77.3 kg (170 lb 6.4 oz) 02/02/2025 11:54 AM EDT Height - - Body Mass Index 30.19 01/27/2025 10:55 AM EDT documented in this encounter Functional Status * Are you deaf or do you have serious difficulty hearing? Answer Date of Assessment Author No 01/06/2025 6:09 PM EDT oNni Molina RN * Are you blind or [...] 01/06/2025 6:09 PM EDT Noni Molina RN documented as of this encounter Mental Status * Because of a physical, mental, or emotional condition, do you have serious difficulty concentrating, remembering, or making decisions? (5 years old or older) Answer Entry Date Author Yes 01/06/2025 6:09 PM EDT Noni Molina RN documented in this encounter Nursing Notes * Cata Rodriguez RN - 02/02/2025 4:19 PM EDT Goals: Patient will remain free from injury. Possible barriers to meeting goals: ambulating with IV pole, weakness, "wobbly" feeling at times and some SOB at times Stability of the patient: Moderately stable - low risk of patient condition declining or worsening Summary regarding today's goals: Met: pt remained free of harm today Patient tolerated treatment well without any acute issues or problems. Patient left facility in stable condition and denied any further needs. * Cata Rodriguez RN - 02/02/2025 3:01 PM EDT Patient saw Dr. Plunkett for scan review at this time. Patient arrived back to treatment room at this time. Patient is comfortable and denies further needs. CMP resulted and Dr. Plunkett reviewed. LFTs and alk phos are elevated. Okay to proceed with treatment today. AST Results: Lab Results Component Value Date/Time AST - [facility] 96 (H) 02/02/2025 11:53 AM AST - [facility] 80 (H) 02/01/2025 12:15 PM AST - [facility] 83 (H) 01/21/2025 12:53 PM ALT Results: Lab Results Component Value Date/Time ALT - [facility] 28 02/02/2025 11:53 AM ALT - [facility] 37 (H) 02/01/2025 12:15 PM ALT - [facility] 30 01/21/2025 12:53 PM Alk phos resulted at 660. Potassium is 3.0. Dr. Plunkett ordered potassium supplement PO for patient to start today once daily and educated patient to increase Aldactone from 25 mg BID to [address] Plunkett. New order placed. Patient communicated understanding and daughter present, also communicated understanding regarding this. Patient will have CMP rechecked in 1 seek, okay to have done in [place] per Dr. Plunkett on 02/09. Will assess potassium at this time. Otherwise patient will return in 3 weeks for next chemo appt 02/23 with f/u with Dr. Plunkett this day as well. Chemotherapy/Immunotherapy agents: TECENTRIQ and ZIRABEV Consent for chemotherapy drug treatment complete, dated, and signed? yes, date - 01/19/2025 Treatment lab parameters met? Yes - see above, okay to tx per Dr. Plunkett Has treatment weight changed > than 10%? No Treatment preauthorized? Yes VITALS Filed Vitals: 02/02/25 1154 BP: 122/72 Pulse: 88 Resp: 18 Temp: 37.3 °C (99.1 °F) TempSrc: Tympanic SpO2: 90% Weight: 77.3 kg (170 lb 6.4 oz) BP Readings from Last 2 Encounters: 02/02/25 122/72 01/27/25 117/60 Pulse Readings from Last 2 Encounters: 02/02/25 88 01/27/25 97 Resp Readings from Last 2 Encounters: 02/02/25 18 01/27/25 18 SpO2 Readings from Last 2 Encounters: 02/02/25 90% 01/27/25 92% Temp Readings from Last 2 Encounters: 02/02/25 37.3 °C (99.1 °F) (Tympanic) 01/27/25 36.9 °C (98.4 °F) (Tympanic) Urine protein: POSITIVE, Trace Patient education completed for treatment? Yes Blood transfusion consent signed and complete? NA Return appointment scheduled? Yes Patient had provider visit today? No - If no provider visit must complete Pretreatment Assessment Functional Status: Functional status at today's visit: Ambulatory and capable of all selfcare but unable to carry out any work activities. Up and about more than 50% of waking hours The drug name, dose, infusion volume, rate and route of administration, expiration date and time, appearance and physical integrity of the drug and rate set on the pump and sequencing of drug administration (as applicable) were verified by me and second sign-in RN. Patient was assessed for symptoms or adverse side effects during treatment. Patient Education: Patient instructed on use of heat and massage functions where applicable. Patient shown how to operate the heat function of the chair and to alert nursing staff if the chair feels too warm. Patient instructed on the risk of potential chambers while using the heat function. PRE-TREATMENT ASSESSMENT: NEURO: OTHER: some weakness and "wobbly" feeling over the last couple weeks CV/RESP: shortness of breath: at times with ambulating longer distances at this time, sats are low 90s and OTHER: abdominal swelling GI/: OTHER: abdominal swelling, distended d/t fluid, see above noted about diuretic adjustment for patient's fluid volume overload OTHER: denies any additional symptoms PAIN: 3-4 pain location : R shoulder and R ribs - ongoing and states the pain medication help greatly Safety and Risk for Injury Patient will remain free from injury. Ensure appropriate safety devices are available. Provide and maintain safe environment. * Cata Rodriguez RN - 02/02/2025 12:12 PM EDT Chair 6. Patient presents today for first cycle of chemotherapy. Patient was educated about establishing IV access, giving premeds, taking PRN home medications, process of getting medication from pharmacy, layout of treatment room, use of call krause, etc. Patient communicated understanding and denied any further questions, concerns, needs. Port accessed, no issues. Healing well. Steri strips remain intact over site at this time. Repeat CMP drawn via port. Patient had labs completed yesterday but CMP was not resulted. RN called lab services but due to unknown circumstances, lab cannot be run at this moment but laborer filter plant will work on finding it to run the specimen. Patient made aware of the above and per Dr. Plunkett, would like to have CMP resulted before tx today.Drawn with port access and sent to lab. Patient is accompanied by daughter here today. Overall patient is doing okay but has been weak and "wobbly" over the last couple weeks per daughter. Patient still able ambulate but walks slower, preventatively. Abdominal swelling is present which patient does not feel has been getting worse but does cause some cramping and discomfort. Patient is on Aldactone and Lasix to aid in better fluid balance. Pain medication help patient's pain at R should and R ribs. O2 sats are 89-91% which daughter reports this is usually where patient runs. Patient's port needle flushed and locked with NSS, alcohol cap applied and port tubing clamped. Patient seeing Dr. Plunkett for scan review appt. Brought to exam room after VS obtained to see Dr. Plunkett. documented in this encounter Plan of Treatment Upcoming Encounters Date Type Department Care Team (Late st Contact Info) Description 02/09/2025 11:30 AM EDT Laboratory Laboratory Patient Service [place], [address] [phone] [address] 02/22/2025 11:30 AM EDT Laboratory Laboratory Patient Service [place], [address] [address] [address] 02/23/2025 9:30 AM EDT Office Visit Hematology/Oncology [facility] [address] [place] [phone] Tunde Plunkett MD 200 [facility] [place] [address] 02/23/2025 10:00 AM EDT Hem/Onc Treatment Hematology/Oncology Treatment, [place] [address] [place] [phone] [place], Chair 10 Hem Onc Scenery [address] [place], [place] [address] 02/25/2025 11:00 AM EDT Office Visit [facility] [address] [place] [address] Jay Gonzales MD [address] [place] [phone] Scheduled Procedures Name Priority Associated Diagnoses [...] this encounter Medical Devices Implanted Type Area Full Stack Java Developer Device Identifier Shelf Expiration Date Model / Serial / Lot Port Implant W8f Poly Cath - [id number] Implanted:Qty : 1 on 01/27/2025 by Rambo Parker MD at OR [facility] Right: Chest CR BARD : PERIPHERAL VASCULAR [id number] 12/17/2025 [id number] / / [id number] documented as of this encounter Procedures Procedure Name Priority Date/Time Associated Diagnosis Comments COMPREHENSIVE METABOLIC PANEL STAT 02/02/2025 11:53 AM EDT Hepatocellular carcinoma (HCC) Metastasis to bone (HCC) documented in this encounter Results * (ABNORMAL) COMPREHENSIVE METABOLIC PANEL (02/02/2025 11:53 AM EDT) BUN 8 6 - 20 mg/dL 02/02/2025 12:[address] CREATININE 0.5 0.5 - 1.0 mg/dL 02/02/2025 12:[address]T [address] EGFR >90 >=60 mL/min 02/02/2025 12:19 [address] Comment:eGFR is calculated b ased on the CKD-EPI 2020 equation. SODIUM 136 135 - 146 mmol/L 02/02/2025 12:19 PM T [address] POTASSIUM 3.0(L) 3.5 - 5.1 mmol/L 02/02/2025 12:19 [address] CHLORIDE 95(L) 98 - 107 mmol/L 02/02/2025 12:[address] CO2 31 22 - 32 mmol/L 02/02/2025 12:19 [address] ANION GAP 10 7 - 15 mmol/L 02/02/2025 12:19 PM [address] GLUCOSE 120 70 - 120 mg/dL 02/02/2025 12:19 PM T [address] Albumin 3.4(L) 3.8 - 5.0 g/dL 02/02/2025 12:19 PM T [facility] 56 AST 96(H) 10 - 35 U/L 02/02/2025 12:[address] Alkaline Phosphatase 660(H) 35 - 130 U/L 02/02/2025 12:19 PM [address] Bilirubin, Total 1.2 <=1.2 mg/dL 02/02/2025 12:19 PM T [facility] 56 CALCIUM 9.1 8.4 - 10.2 mg/dL 02/02/2025 12:19 PM T [facility] 56 Protein 6.5 6.0 - 8.3 g/dL 02/02/2025 12:19 PM T [facility] 56 ALT 28 10 - 35 U/L 02/02/2025 12:19 PM EDT [facility] 56-02 Blood Venous blood specimen / Unknown Central Line / Unknown 02/02/2025 11:53 AM EDT 02/02/2025 11:57 AM EDT us Tunde Plunkett MD LAB BLOOD ORDERABLES Final Res ult [facility] [address] [place] [address] documented in this encounter Visit Diagnoses Diagnosis Right shoulder pain, unspecified chronicity- Primary Wheezing Limited range of motion (ROM) of shoulder Clostridium difficile enteritis Intestinal infection due to clostridium difficile Hepatocellular carcinoma (HCC) Malignant neoplasm of liver, primary 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) Chronic hepatitis C without mention of hepatic coma HTN, goal below 130/80 Unspecified essential hypertension HCC (hepatocellular carcinoma) (HCC)- Primary Malignant neoplasm of liver, primary Hepatocellular carcinoma (HCC) Malignant neoplasm of liver, primary 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 Encounter for antineoplastic chemotherapy documented in this encounter Administered Medications Inactive Administered Medications - up to 3 most recent administrations Medication Order MAR Action Action Date Dose Rate Site Atezolizumab (Tecentriq) 1,200 mg in NSS 250 mL infusion 1,200 mg, IV Piggyback, ONCE, 1 dose, On Fri02/02/25 at 1315, Administer over 60 MinutesIndications:Metastas is to bone (HCC),HCC (hepatocellular carcinoma) (HCC),Encounter for antineoplastic chemotherapy Start Infusion 02/02/2025 1:26 PM EDT 1,200 mg 275 mL/hr bevaCIZumab-bvzr (Zirabev) 1,200 mg in NSS 100 mL infusion 1,200 mg (rounded from 1,188 mg = 15 mg/kg 79.2 kg Treatment plan Recorded weight), IV Piggyback, ONCE, 1 dose, On Fri02/02/25 at 1345, Administer over 30 Minutes, Flush with NSS only!Indications:Metastasis to bone (HCC),HCC (hepatocellular carcinoma) (HCC),Encounter for antineoplastic chemotherapy Start Infusion 02/02/2025 2:39 PM EDT 1,200 mg 210 mL/hr NSS infusion Intravenous, at 50 mL/hr, PRN, Starting on Fri02/02/25 at 1345, Until Fri02/02/25 at 2019, Maintenance lineIndications:Metastasis to bone (HCC),HCC (hepatocellular carcinoma) (HCC),Encounter for antineoplastic chemotherapy Start Infusion 02/02/2025 12:47 PM EDT 50 mL/hr sodium chloride 0.9 % flush/inj 20 mL 20 mL, IV Push, PRN IV Flush and Lock, Starting on Fri02/02/25 at 1232, Until Fri02/02/25 at 2019, Do not flush if lock, PICC, or central line not in place; IV infusing or unable to flush. For midlines and central lines. For IV Flush and Lock, IVAD is flushed with a total of 20 mL Normal Saline, 10 mL of Normal Saline Flush with 10 mL of Normal Saline acting as IV LOCK.Indications:Metastasis to bone (HCC),HCC (hepatocellular carcinoma) (HCC),Encounter for antineoplastic chemotherapy Given 02/02/2025 3:30 PM EDT 20 mL documented in this encounter Advance Directives * Full Code (Latest Code Status on File) Date Activated Date Inactivated Comments 01/06/2025 5:26 AM 01/14/2025 8:43 PM This order r eflects the patients wishes and were consensually agreed upon. Question Answer Comments Discussion of Advance Directives occurred with: Patient Care Teams Commercial Property Manager Relationship Specialty Start Date End Date Jay Gonzales MD [address] [place] [address] [place] [phone] PCP - General Family Medicine 09/13/22 documented as of this encounter
--- OUTSIDE RECORDS SUMMARY | 2025-02-12 16:07 | External Medical Summary ---
Author Name Unknown Address Unknown Organization K09:[facility] [address] [place] [address] Laboratory Report Ordering Provider Test Date Status JEREMIAH CROCKETT 02/02/2025 11:53:51 Final Observation Date Value Abnormality Reference (Units ) Status BUN 02/02/2025 11:53:51 8 6-20 (mg/dL) Final Creatinine 02/02/2025 11:53:51 0.5 0.5-1.0 (mg/dL) Final Glomerular filtration rate/1.73 sq M.predicted [Volume Rate/Area] in Serum, Plasma or Blood by Creatinine-based formula (CKD-EPI) 02/02/2025 11:53:51 >90 >=60 (mL/min) Final eGFR is calculated based on the CKD-EPI 2020 equation. Sodium 02/02/2025 11:53:51 136 135-146 (m mol/L) Final Potassium 02/02/2025 11:53:51 3.0 Below low normal 3.5 -5.1 (mmol/L) Final Cl 02/02/2025 11:53:51 95 Below low normal 98- 107 (mmol/L) Final CO2 02/02/2025 11:53:51 31 22-32 (mmo l/L) Final Anion gap 02/02/2025 11:53:51 10 7-15 (mmol /L) Final Glucose 02/02/2025 11:53:51 120 70-120 (mg /dL) Final Albumin 02/02/2025 11:53:51 3.4 Below low normal 3.8 -5.0 (g/dL) Final AST (Aspartate aminotransferase) 02/02/2025 11:53:51 96 Above high normal 10-35 (U/L) Final Alk Phos 02/02/2025 11:53:51 660 Above high normal 35 -130 (U/L) Final Bilirubin, Total 02/02/2025 11:53:51 1.2 <=1 .2 (mg/dL) Final Calcium 02/02/2025 11:53:51 9.1 8.4-10.2 ( mg/dL) Final Protein 02/02/2025 11:53:51 6.5 6.0-8.3 (g /dL) Final ALT (Alanine aminotransferase) 02/02/2025 11:53:51 28 10-35 (U/L) Gilles white Performing Location [facility] [address] [place] [address]
--- OUTSIDE RECORDS SUMMARY | 2025-02-12 16:07 | External Medical Summary ---
Author Name Unknown Address Unknown Organization [facility] [address] [facility] [place] [address] Laboratory Report Ordering Provider Test Date Status JEREMIAH CROCKETT 02/10/2025 11:46:20 Final Observation Date Value Abnormality Reference (Units ) Status Ammonia 02/10/2025 11:46:20 45 Above high normal 11 -35 (umol/L) Final Performing Location [facility] - [address] [place] [address]
--- OUTSIDE RECORDS SUMMARY | 2025-02-12 16:07 | External Medical Summary | Summary of Care ---
Author Name Unknown Organization [facility] Address [address] [place] [address] Phone [phone] Care Team Providers Care Regulator Mechanic Name Role Phone Jay Gonzales MD Primary Care Provi syl Reason for Visit * Reason Onset Date Comments Information 02/03/2025 Check in after C 1D1 tecentriq/ zirabev Encounter Details Date Type Department Care Team (Late st Contact Info) Description 02/03/2025 Refill Hematology/Oncology Treatment, [address] [phone] Tunde Plunkett MD [address] [place] [address] Hepatocellular carcinoma (HCC)*; Metastasis to bone (HCC) Allergies No known [...] NOT CUT, CRUSH OR CHEW (TAKE WITH [id number]=226KM DAILY) 90 Capsule 1 5 Active Gabapentin [...] suspected opioid overdose. Seek immediate medical attention. [email or web address] 2 Each 3 5 Active Additional Information [...] 5 Active Spironolactone 50 MG Oral Tablet (Aldactone)Heatehr cations:Hepatoc ellular carcinoma (HCC),Metastasi s to bone [...] encounter Miscellaneous Notes * Telephone Encounter - Audi Dale RN - 02/03/2025 3:40 PM EDTSigned Prescriptions: Disp Refills Lidocaine-Prilocaine 2.5-2.5 % External Cr*30 g 1 Sig: APPLY TO SKIN OVER MEDIPORT & COVER 1HR PRIOR TO ACCESSING.Authorizing Provider: MICK LAMBERT----- * Telephone Encounter - Mick Lambert CRNP - 02/03/2025 3:34 PM EDT E prescribed Emla cream * Telephone Encounter - Samantha Strange RN - 02/03/2025 3:25 PM EDT HEMATOLOGY/ONCOLOGY INITIAL CHEMO FOLLOW-UP Patient received C1D1 tecentriq/ zirabev 02/02/25. Post chemo side effects: Diarrhea- states that she had been very constipated before treatment. Dr Plunkett suggested she take miralax, but she ended up having diarrhea when she got home from treatment. States that it is both liquid and some solid pieces. Slight nausea, has not needed to take anything Drinking a lot of fluids- mostly water and Coke. Advised her to limit Coke to 1- 2 glasses a day dueto caffeine. Understands post treatment medications: Yes Understands to call office prior to ER visit/or with issues: Yes Aware of next appointment: Yes Additional information: requesting rx for EMLA cream to [facility]. documented in this encounter Plan of Treatment Upcoming Encounters Date Type Department Care Team (Late st Contact Info) Description 02/09/2025 11:30 AM EDT Laboratory [facility] [place] [phone] [place], Lab [address] [address] 02/22/2025 11:30 AM EDT Laboratory Laboratory Patient Service [address] [phone] [place], Lab [address] [address] 02/23/2025 9:30 AM EDT Office Visit Hematology/Oncology [facility] [address] [place] [address] Tunde Plunkett MD [address] [place] [address] 02/23/2025 10:00 AM EDT Hem/Onc Treatment Hematology/Oncology Treatment, [place] [address] [facility] [place] [phone] Denia, Chair 10 Hem Onc [address] [place] [address] 02/25/2025 11:00 AM EDT Office Visit [address] [phone] Jay Gonzales MD [address] [place] [phone] Scheduled Procedures Name Priority Associated Diagnoses [...] this encounter Medical Devices Implanted Type Area Salmon Troll Fisher Device Identifier Shelf Expiration Date Model / Serial / Lot Port Implant W8f Poly Cath - [id number] Implanted:Qty : 1 on 01/27/2025 by Rambo Parker MD at OR [facility] Right: Chest CR BARD : PERIPHERAL VASCULAR [id number] 12/17/2025 [id number] / / [id number] documented as of this encounter Visit Diagnoses [...] Advance Directives occurred with: Patient Care Teams Regulator Mechanic Relationship Specialty Start Date End Date Jay Gonzales MD [address] [place] [phone] PCP - General Family Medicine 09/13/22 documented as of this encounter
--- OUTSIDE RECORDS SUMMARY | 2025-02-12 16:07 | External Medical Summary ---
Author Name Unknown Address Unknown Organization K09[facility] [place] [address] Laboratory Report Ordering Provider Test Date Status JEREMIAH CROCKETT 02/10/2025 11:46:20 Final Observation Date Value Abnormality Reference (Units ) Status Nucleated erythrocytes/100 leukocytes [Ratio] in Blood by Automated count 02/10/2025 11:46:20 Final Performing Location [facility] [place] [address]
--- OUTSIDE RECORDS SUMMARY | 2025-02-12 16:08 | External Medical Summary | Summary of Care ---
Author Name Unknown Organization [facility] Address [address] [place] [address] Phone [phone] Care Team Providers Care Mill Tender Warm Up Name Role Phone Jay Gonzales MD Primary Care Provi syl Reason for Visit * Reason Comments eRx-Medication Refill Encounter Details Date Type Department Care Team ([facility] Contact Info) Description 01/25/2025 Refill Family Practice [facility] [address] [place] [phone] Holly Sweet PA-C [address] [place], [place] [phone] Chronic right shoulder pain Allergies No known active allergiesdocumented as of this encounter (statuses as of 01/25/2025) Medications Multiple Vitamins-Minera ls (CENTRUM ADULTS) TABS [...] NOT CUT, CRUSH OR CHEW (TAKE WITH [id number] DAILY) 90 Capsule 1 5 Active Gabapentin [...] 3 01/14/2025 4:09 PM EDT 5 Active Fidaxomicin 200 MG Oral Tablet (Dificid)Indica tions:C. difficile diarrhea Take 1 Tablet by mouth in the morning and 1 Tablet before bedtime. 10 Tablet 01/14/2025 4:09 PM EDT 5 Active Ondansetron HCl 4 MG Oral Tablet Take 1 Tablet by mouth every 8 hours as needed for Nausea. 20 Tablet 01/14/2025 4:09 PM EDT 5 Active Naloxone HCl 4 MG/0.1ML Nasal Liquid (Narcan Nasal) Administer 1 spray into 1 nostril for suspected opioid overdose. Seek immediate medical attention. https://[email or web address]/watch? [email or web address] 2 Each 3 5 Active Morphine Sulfate ER 15 MG Oral Tablet [...] as of this encounter (statuses as of 01/25/2025) Active Problems Problem Noted Date Diagnosed Date [...] as of this encounter (statuses as of 01/25/2025) Resolved Problems Problem Noted Date Diagnosed Date Resolved Date Acute hypoxic respiratory failure 01/06/2025 01/07/2025 Cholelithiasis 01/06/2025 01/13/2025 OTHER 11/15/2009 08/20/2018 Overview (11/20/2009): Genotype 1a Chronic hepatitis C 09/21/2009 08/20/20 18 documented as of this encounter (statuses as of 01/25/2025) Immunizations Name Administration Dates Next Due TDAP, Age 7 and older, IM (Adacel) 07/03/2009 documented as of this encounter Social History Tobacco Use Types Packs/Day Years Used Date Smoking Tobacco: Every Day Cigarettes 0.5 20 Passive Smoke Exposure: Never [...] 6:09 PM JAVIERT Noni Molina RN * Do you have [...] of Assessment Author Yes 01/06/2025 6:09 PM EDNoni Tee RN documented as of this encounter Mental Status * Because of a physical, mental, or emotional condition, do you have serious difficulty concentrating, remembering, or making decisions? (5 years old or older) Answer Entry Date Author Yes 01/06/2025 6:09 PM Noni Castellon RN documented in this encounter Miscellaneous Notes * Telephone Encounter - Holly Sweet PA-C - 01/25/2025 7:34 AM EDT Signed Prescriptions: Disp Refills tiZANidine HCl 2 MG Oral Tablet (Zanaflex) 30 Tab*0 Sig: TAKE 1 TABLET BY MOUTH DAILY AT BEDTIME NEEDED FOR MUSCLE SPASMS. Authorizing Provider: HOLLY SWEET * Telephone Encounter - Jeni Jasso LPN - 01/25/2025 7:01 AM EDTPending Prescriptions: Disp Refills tiZANidine HCl 2 MG Oral Tablet [Pharmacy *30 Tab*0 Sig: TAKE 1 TABLET BY MOUTH DAILY AT BEDTIME NEEDED FOR MUSCLE SPASMS. * Telephone Encounter - Sarah Ashford - 01/25/2025 4:16 AM EDTPending Prescriptions: Disp Refills tiZANidine HCl 2 MG Oral Tablet [Pharmacy *30 Tab*0 Sig: TAKE 1TABLET BY MOUTH DAILY AT BEDTIME NEEDED FOR MUSCLE SPASMS. documented in this encounter Plan of Treatment Upcoming Encounters Date Type Department Care Team (Latest Contact Info) Description 01/26/2025 9:45 AM EDT Imaging Radiology, [address] [place] [phone] 01/27/2025 11:30 AM EDT Hospital Encounter OR [facility], Operating Room, [facility] - 4th Floor [address] [place] [phone] Rambo Parker MD [facility] [address] [place] [address] 01/27/2025 11:30 AM EDT - 01/27/2025 12:29 PM EDT Surgery OR [facility], Operating Room, [facility] - 4th Floor [address] [place] [phone] Rambo Parker MD [address] [place], [place] [address] [address] INSERT TUNNELED CENTRAL VENOUS ACCESS WITH SUBQ PORT 02/01/2025 1:00 PM EDT Laboratory Laboratory Patient Service [address] [phone] [place], Lab Lock [address] [place] [address] 02/02/2025 11:00 AM EDT Hem/Onc Treatment Hematology/Oncolog y Treatment, [place] [address] [place] [address] Denia, Chair 3 Hem Onc [facility] 200 [facility] [place] [phone] 02/10/2025 1:00 PM EDT Office Visit Hematology/Oncolog y [address] [place] [address] Tunde Plunkett MD 200 [place] [address] 02/25/2025 11:00 AM EDT Office Visit [address] [phone] Jay Gonzales MD [address] [place] [phone] Scheduled Procedures Name Priority Associated Diagnoses Date/Ti me INSERT TUNNELED CENTRAL VENOUS ACCESS WITH SUBQ PORT Hepatocellular carcinoma (HCC) Metastasis to bone (HCC) 01/27/2025 11:30 AM EDT COLONOSCOPY FLEXIBLE PROXIMAL DIAGNOSTIC Recall Personal history of colonic polyps [...] documented as of this encounter Medical Devices Not on filedocumented as of this encounter Visit Diagnoses Diagnosis Right shoulder pain, unspecified chronicity- Primary Wheezing Limited range of motion (ROM) of shoulder Clostridium difficile enteritis Intestinal infection due to clostridium difficile Hepatocellular carcinoma (HCC) Malignant neoplasm of liver, primary 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 difficile 11/30/2024 11/30/2024 01/25/2025 12:1 9 AM EDT documented as of this encounter Advance Directives * Full Code (Latest Code Status on File) Date Activated Date Inactivated Comments 01/06/2025 5:26 AM 01/14/2025 8:43 PM This order r eflects the patients wishes and were consensually agreed upon. Question Answer Comments Discussion of Advance Directives occurred with: Patient Care Teams Mill Tender Warm Up Relationship Specialty Start Date End Date Jay Gonzales MD [address] [place] [phone] PCP - General Family Medicine 09/13/22 documented as of this encounter
--- OUTSIDE RECORDS SUMMARY | 2025-02-12 16:08 | External Medical Summary | Summary of Care ---
Author Name Unknown Organization [facility] Address [address] [place] [address] Phone [phone] Care Team Providers Care Coil Wrapper Name Role Phone Jay Gonzales MD [facility] Reason for Visit * Reason Comments Outpatient Testing Encounter Details Date Type Department Care Team ([facility] st Contact Info) Description 02/01/2025 1:00 PM EDT Laboratory [facility] [phone] [address] Hepatocellular carcinoma (HCC); Metastasis to bone (HCC); Encounter for long-term (current) use of medications Allergies No known active allergiesdocumented as of this encounter (statuses as of 02/01/2025) Medications Multiple Vitamins-Minera ls (CENTRUM ADULTS) TABS [...] NOT CUT, CRUSH OR CHEW (TAKE WITH [id number]=[id number] DAILY) 90 Capsule 1 5 Active Gabapentin [...] suspected opioid overdose. Seek immediate medical attention. https://[email or web address]/[email or web address]?v= [email or web address] 2 Each 3 5 Active Additional Information [...] as of this encounter (statuses as of 02/01/2025) Active Problems Problem Noted Date Diagnosed Date [...] as of this encounter (statuses as of 02/01/2025) Resolved Problems Problem Noted Date Diagnosed Date Resolved Date Acute hypoxic respiratory failure 01/06/2025 01/07/2025 Cholelithiasis 01/06/2025 01/13/2025 OTHER 11/15/2009 08/20/2018 Overview (11/20/2009): Genotype 1a Chronic hepatitis C 09/21/2009 08/20/20 18 documented as of this encounter (statuses as of 02/01/2025) Immunizations Name Administration Dates Next Due TDAP, [...] Noni Castellon RN documented in this encounter Plan of Treatment Upcoming Encounters Date Type Department Care Team (Late st Contact Info) Description 02/02/2025 11:00 AM EDT Hem/Onc Treatment Hematology/Oncology Treatment, [place] [address] [facility] [place] [phone] Denia, Chair 3 Hem Onc [facility] [place] [address] 02/10/2025 1:00 PM EDT Office Visit Hematology/Oncology [facility] [place] [address] [place] [phone] Tunde Plunkett MD [address] [place] [address] 02/25/2025 11:00 AM EDT Office Visit [address] [phone] Jay Gonzales MD [address] [place] [phone] Pending Results Name Type Priority Associated Diagnoses Date /Time CBC WITH WBC DIFFERENTIAL Lab STAT Hepatocellular carcinoma (HCC) Metastasis to bone (HCC) 02/01/2025 12:15 PM EDT COMPREHENSIVE METABOLIC PANEL Lab STAT Hepatocellular carcinoma (HCC) Metastasis to bone (HCC) 02/01/2025 12:15 PM EDT TSH WITH FREE T4 IF INDICATED Lab STAT Hepatocellular carcinoma (HCC) Metastasis to bone (HCC) Encounter for long-term (current) use of medications 02/01/2025 12:15 PM EDT URINALYSIS, REFLEX TO MICROSCOPIC Lab STAT Hepatocellular carcinoma (HCC) Metastasis to bone (HCC) 02/01/2025 12:15 PM EDT CBC Lab STAT Hepatocellular carcinoma (HCC) Metastasis to bone (HCC) 02/01/2025 12:15 PM EDT DIFFERENTIAL, AUTOMATED Lab STAT Hepatocellular carcinoma (HCC) Metastasis to bone (HCC) 02/01/2025 12:15 PM EDT Scheduled Procedures Name Priority Associated Diagnoses [...] this encounter Medical Devices Implanted Type Area Fur Blower Operator Device Identifier Shelf Expiration Date Model / Serial / Lot Port Implant W8f Poly Cath - [id number] Implanted:Qty : 1 on 01/27/2025 by Rambo Parker MD at OR [facility] Right: Chest CR BARD : PERIPHERAL VASCULAR [id number] 12/17/2025 [id number] / / [id number] documented as of this encounter Visit Diagnoses [...] of bone and bone marrow Encounter for long-term (current) use of medications Encounter for long-term (current) use of other medications documented in this encounter Advance Directives * Full Code (Latest Code Status on File) Date Activated Date Inactivated Comments 01/06/2025 5:26 AM 01/14/2025 8:43 PM This order r eflects the patients wishes and were consensually agreed upon. Question Answer Comments Discussion of Advance Directives occurred with: Patient Care Teams Coil Wrapper Relationship Specialty Start Date End Date Jay Gonzales MD [address] [place] [phone] PCP - General Family Medicine 09/13/22 documented as of this encounter
--- OUTSIDE RECORDS SUMMARY | 2025-02-12 16:08 | External Medical Summary ---
Author Name Unknown Address Unknown Organization K01:[facility]ATORY [facility] - [address] [facility] [address] Laboratory Report Ordering Provider Test Date Status JEREMIAH CROCKETT 02/01/2025 12:15:42 Final Observation Date Value Abnormality Reference (Units ) Status Color of Urine by Auto 02/01/2025 12:15:42 Yellow Colorless, Light Yellow, Yellow, Dark Yellow Final Clarity, Urine 02/01/2025 12:15:42 Clear Clear Final Glucose [Mass/volume] in Urine by Automated test strip 02/01/2025 12:15:42 Negative Negative (mg/dL) Final Bilirubin.total [Presence] in Urine by Automated test strip 02/01/2025 12:15:42 Negative Negative Final Ketones [Mass/volume] in Urine by Automated test strip 02/01/2025 12:15:42 15 Abnormal Negative (mg/dL) Final Specific gravity, Urine 02/01/2025 12:15:42 1.019 1.003-1.030 Final Hemoglobin [Presence] in Urine by Automated test strip 02/01/2025 12:15:42 Negative Negative Final pH, Urine 02/01/2025 12:15:42 6.5 5.0-7.5 (Units) Final Protein [Mass/volume] in Urine by Automated test strip 02/01/2025 12:15:42 Trace Abnormal Negative (mg/dL) Final Urobilinogen [Mass/volume] in Urine by Automated test strip 02/01/2025 12:15:42 2.0 Abnormal Normal (mg/dL) Final Nitrite [Presence] in Urine by Automated test strip 02/01/2025 12:15:42 Negative Negative Final Leukocyte esterase [Presence] in Urine by Automated test strip 02/01/2025 12:15:42 Trace Abnormal Negative Final RBC, Urine 02/01/2025 12:15:42 0-2 0-2 (/HPF) Final WBC, Urine 02/01/2025 12:15:42 6-9 Abnormal 0-2 (/HPF) Final Bacteria [#/area] in Urine sediment by Microscopy high power field 02/01/2025 12:15:42 51-100 Abnormal 0-25 (/HPF) Final Performing Location LABORATORY [facility] - [facility] [place] [address]. [facility] [address]
--- OUTSIDE RECORDS SUMMARY | 2025-02-12 16:08 | External Medical Summary ---
Author Name Unknown Address Unknown Organization K01:[facility] - [address] [facility] [address] Laboratory Report Ordering Provider Test Date Status JEREMIAH CROCKETT 02/01/2025 12:15:42 Final Observation Date Value Abnormality Reference (Units ) Status SYNC LEUKOCYTES IN BLOOD BY AUTOMATED COUNT 02/01/2025 12:15:42 4.74 4.00-10.80 (K/uL) Final Segs 02/01/2025 12:15:42 80.9 Above high normal 40.0-75.0 (%) Final Lymphs % 02/01/2025 12:15:42 4.0 Below low normal 18.0-42.0 (%) Final Monos 02/01/2025 12:15:42 11.8 Above high normal 1.0-11.0 (%) Final Eosinophils 02/01/2025 12:15:42 2.3 0.0-6.0 (%) Final Basos 02/01/2025 12:15:42 0.6 0.0-2.0 (%) Final Immature Granulocyte, Percent 02/01/2025 12:15:42 0.4 0.0-2.0 (%) Final Absolute Segs 02/01/2025 12:15:42 3.83 1.80-7.70 (K/uL) Final Lymphs, absolute 02/01/2025 12:15:42 0.19 Below low normal 1.00-4.80 (K/ul) Final Monos, Abs 02/01/2025 12:15:42 0.56 0.00-1.10 (K/uL) Final Eos, Abs 02/01/2025 12:15:42 0.11 0.00-0.70 (K/uL) Final Basos, Abs 02/01/2025 12:15:42 0.03 0.00-0.20 (K/uL) Final Immature Granulocytes, Number 02/01/2025 12:15:42 0.02 0.00-0.20 (K/uL) Final Performing Location LAB[facility]ATORY [facility] - [facility] [place] [address]. [facility] [address]
--- OUTSIDE RECORDS SUMMARY | 2025-02-12 16:08 | External Medical Summary | Summary of Care ---
Author Name Unknown Organization [facility] Address [address] [place] [address] Phone [phone] Care Team Providers Care Dialer Name Role Phone Jay Gonzales MD Primary Care Provi syl Reason for Visit * Reason Onset Date Comments Precert Future 01/19/2025 kat Espinosa Encounter Details Date Type Department Care Team (Late st Contact Info) Description 01/19/2025 Telephone Hematology/Oncology Treatment, [place] [address] [place] [address] Tunde Plunkett MD [address] [place] [address] Precert Future (Tecisabel wattrabev) Allergies No known active allergiesdocumented as of this encounter (statuses as of 01/24/2025) Medications Multiple Vitamins-Minera ls (CENTRUM ADULTS) TABS [...] NOT CUT, CRUSH OR CHEW (TAKE WITH [id number] DAILY) 90 Capsule 1 5 Active Gabapentin [...] suspected opioid overdose. Seek immediate medical attention. [email or web address].com/[email or web address]? [email or web address] 2 Each 3 5 Active Morphine Sulfate [...] before bedtime. 60 Tablet 3 5 Active documented as of this encounter (statuses as of 01/24/2025) Active Problems Problem Noted Date Diagnosed Date [...] as of this encounter (statuses as of 01/24/2025) Resolved Problems Problem Noted Date Diagnosed Date Resolved Date Acute hypoxic respiratory failure 01/06/2025 01/07/2025 Cholelithiasis 01/06/2025 01/13/2025 OTHER 11/15/2009 08/20/2018 Overview (11/20/2009): Genotype 1a Chronic hepatitis C 09/21/2009 08/20/20 18 documented as of this encounter (statuses as of 01/24/2025) Immunizations Name Administration Dates Next Due TDAP, [...] encounter Miscellaneous Notes * Telephone Encounter - Mulugeta Lee OSA - 01/24/2025 8:20 AM EDT Patient scheduled. Daughter aware * Telephone Encounter - Audi Dale RN - 01/21/2025 3:57 PM EDT Scheduling- please call patient to schedule patient for lab appointment @ [place] "CBCD,CMP" theday before her treatment on 02/01. Thank you. * Telephone Encounter - Tunde Plunkett MD - 01/21/2025 3:34 PM EDT I would prefer that we should have another CBCD and comprehensive metabolic panel before we proceedwith the treatment on 02/02/2025. No need for urine checkup at that time as it would not change. * Telephone Encounter - Audi Dale RN - 01/21/2025 12:57 PM EDT Education completed. Hep B labs in process. Pt is scheduled for port on 01/27 Treatment scheduled on 02/02. Pt prefers to do labs day prior to treatment in [place]. Pt seeing Rad Onc on 01/26 to discuss treatment to [place]. Dr. Plunkett- ok to use labs from today for first treatment? * Telephone Encounter - Samantha Strange RN - 01/19/2025 4:50 PM EDT Referral entered. * Telephone Encounter - Samantha Strange RN - 01/19/2025 4:25 PM EDT Order received for tecentriq, zirabev. [place] plan built and routed for signature. Waiting for auth. Consent signed 01/19/25. Nurse education 01/21/25. Patient will need hep B labs- Dr Plunkett would also like 1x AFP. PET 01/26/25. Mediport ordered- not yet scheduled (can start prior to mediport placement). Patient is seeing [facility] rad/onc next week for radiation to skull. Per Dr Plunkett, david to start before radiation is complete/ while patient is still receiving radiation. documented in this encounter Plan of Treatment Upcoming Encounters Date Type Department Care Team (Latest Contact Info) Description 01/26/2025 9:45 AM EDT Imaging Radiology, [place] [address] [address] [place] [address] 01/27/2025 11:30 AM EDT Hospital Encounter [place] [facility], Operating Room, [facility] - 4th Floor [address] [place] [phone] [facility] [address] [facility] [address] 01/27/2025 11:30 AM EDT - 01/27/2025 12:29 PM EDT Surgery OR [facility], Operating Room, [facility] - 4th Floor [address] [place] [phone] Rambo Parker MD 400 [place] [address] INSERT TUNNELED CENTRAL VENOUS ACCESS WITH SUBQ PORT 02/01/2025 1:00 PM EDT Laboratory Laboratory Patient Service [address] [phone] [address] 02/02/2025 11:00 AM EDT Hem/Onc Treatment Hematology/Oncolog y Treatment, [place] [address] [place] [address] Denia, Chair 3 Hem Onc [place] 200 [facility] [place] [address] 02/10/2025 1:00 PM EDT Office Visit Hematology/Oncolog y [facility] [place] [address] [place] [address] Tunde Plunkett MD 200 [facility] [place] [address] 02/25/2025 11:00 AM EDT Office Visit [facility] [address] [place] [phone] Jay Gonzales MD [address] [place] [phone] Scheduled Procedures Name Priority Associated Diagnoses [...] Not on filedocumented as of this encounter Results * HEPATITIS B CORE ANTIBODIES IGG AND IGM (01/21/2025 12:53 PM EDT) Pathologist [facility] Hepatitis B Core Antibodies IgG and IgM Negative Negative 01/21/2025 9:16 PM EDT LABORATORY [facility] Blood Venous blood specimen / Unknown Venipuncture / Unknown 01/21/2025 12:53 PM EDT 01/21/2025 12:53 PM EDT us Tunde Plunkett MD LAB BLOOD ORDERABLES Final Res ult LABORATORY [facility] [address] [place] [address] * HEPATITIS B SURFACE ANTIGEN (01/21/2025 12:53 PM EDT) Hepatitis B Surface Antigen Negative Negative 01/21/2025 9:16 PM EDT LABORATORY [facility] Blood Venous blood specimen / Unknown Venipuncture / Unknown 01/21/2025 12:53 PM EDT 01/21/2025 12:53 PM EDT Tunde Plunkett MD LAB BLOOD ORDERABLES Final Res ult Performing Organization Address [facility] Co de Phone Number LABORATORY [facility] [address] [place] [address] * HEPATITIS B SURFACE ANTIBODY (01/21/2025 12:53 PM EDT) Hepatitis B Surface Antibody, Quantitative <3.5 mIU/mL 01/21/2025 9:16 PM EDT LABORATORY [facility] Hepatitis B Surface Antibody, Qualitative Negative 01/21/2025 9:16 PM EDT LABORATORY [facility] Hepatitis B Surface Antibody, Interpretation NOT immune to Hepatitis B Virus 01/21/2025 9:16 PM EDT LABORATORY [facility] Comment: POSITIVE: >=11.5 mIU/mL INDETERMINATE: 8.5-<11.5 mIU/mL NEGATIVE: <8.5 mIU/mL Blood Venous blood specimen / Unknown Venipuncture / Unknown 01/21/2025 12:53 PM EDT 01/21/2025 12:53 PM EDT us Tunde Plunkett MD LAB BLOOD ORDERABLES Final Res ult Performing Organization Address [facility] Co de Phone Number LABORATORY [facility] [address] [place] [address] * (ABNORMAL) ALPHA-FETOPROTEIN TUMOR MARKER (01/21/2025 12:53 PM EDT) Alpha-Fetoprot ein Tumor Marker 11,402.0(H ) 0.0 - 8.3 ng/mL 01/21/2025 9:48 PM EDT LABORATORY [facility] Blood Venous blood specimen / Unknown Venipuncture / Unknown 01/21/2025 12:53 PM EDT 01/21/2025 12:53 PM EDT us Tunde Plunkett MD LAB BLOOD ORDERABLES Final Res ult LABORATORY [facility] [address] [place] [address] documented in this encounter Visit Diagnoses Diagnosis [...] of bone and bone marrow Encounter for screening for other viral diseases Hepatocellular carcinoma (HCC) Malignant neoplasm of liver, primary 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 difficile 11/30/2024 11/30/2024 documented as of this encounter Advance Directives * Full Code (Latest Code Status on File) Date Activated Date Inactivated Comments 01/06/2025 5:26 AM 01/14/2025 8:43 PM This order r eflects the patients wishes and were consensually agreed upon. Question Answer Comments Discussion of Advance Directives occurred with: Patient Care Teams Dialer Relationship Specialty Start Date End Date Jay Gonzales MD [address] [place] [phone] PCP - General Family Medicine 09/13/22 documented as of this encounter
--- OUTSIDE RECORDS SUMMARY | 2025-02-12 16:08 | External Medical Summary ---
Author Name Unknown Address Unknown Organization K01:LABORATORY [facility] [place] - [address] [facility] [address] Laboratory Report Ordering Provider Test Date Status JEREMIAH CROCKETT 02/01/2025 12:15:42 Final Observation Date Value Abnormality Reference (Units ) Status TSH 02/01/2025 12:15:42 2.24 0.27-4.20 (uIU/mL) Final Performing Location [facility]ORY [facility] - [address] [facility] [address]
--- OUTSIDE RECORDS SUMMARY | 2025-02-12 16:08 | External Medical Summary ---
Author Name Unknown Address Unknown Organization K01:[facility] [place] [address] [facility] [address] Laboratory Report Ordering Provider Test Date Status JEREMIAH CROCKETT 02/01/2025 12:15:42 Final Observation Date Value Abnormality Reference (Units ) Status BUN 02/01/2025 12:15:42 9 6-20 (mg/dL) Final Creatinine 02/01/2025 12:15:42 0.6 0.5-1.0 (mg/dL) Final Glomerular filtration rate/1.73 sq M.predicted [Volume Rate/Area] in Serum, Plasma or Blood by Creatinine-based formula (CKD-EPI) 02/01/2025 12:15:42 >90 >=60 (mL/min) Final eGFR is calculated based on the CKD-EPI 2020 equation. Sodium 02/01/2025 12:15:42 138 135-146 (m mol/L) Final Potassium 02/01/2025 12:15:42 3.2 Below low normal 3.5 -5.1 (mmol/L) Final Cl 02/01/2025 12:15:42 96 Below low normal 98- 107 (mmol/L) Final CO2 02/01/2025 12:15:42 30 22-32 (mmo l/L) Final Anion gap 02/01/2025 12:15:42 12 7-15 (mmol /L) Final Glucose 02/01/2025 12:15:42 193 Above high normal 70 -120 (mg/dL) Final Albumin 02/01/2025 12:15:42 3.8 3.8-5.0 (g /dL) Final AST (Aspartate aminotransferase) 02/01/2025 12:15:42 80 Above high normal 10-35 (U/L) Final Alk Phos 02/01/2025 12:15:42 717 Above high normal 35 -130 (U/L) Final Bilirubin, Total 02/01/2025 12:15:42 1.5 Above high no rmal <=1.2 (mg/dL) Final Calcium 02/01/2025 12:15:42 9.4 8.4-10.2 ( mg/dL) Final Protein 02/01/2025 12:15:42 6.5 6.0-8.3 (g /dL) Final ALT (Alanine aminotransferase) 02/01/2025 12:15:42 37 Above high normal 10-35 (U/L) Final Performing Location [facility] [place] - [address] [facility] [address]
--- OUTSIDE RECORDS SUMMARY | 2025-02-12 16:08 | External Medical Summary ---
Author Name Unknown Address Unknown Organization K01:[facility] [place] - [address] [facility] [place] [address] Laboratory Report Ordering Provider Test Date Status JEREMIAH CROCKETT 02/01/2025 12:15:42 Final Observation Date Value Abnormality Reference (Units ) Status WBC, Total 02/01/2025 12:15:42 4.74 4.00-10.80 (K/uL) Final RBC 02/01/2025 12:15:42 3.57 3.85-5.15 (M/uL) Final Hemoglobin 02/01/2025 12:15:42 10.4 Below low normal 12.0-15.3 (g/dL) Final HCT 02/01/2025 12:15:42 34.1 Below low normal 36.0-45.2 (%) Final MCV 02/01/2025 12:15:42 95.5 81.5-97.5 (fL) Final MCH 02/01/2025 12:15:42 29.1 27.0-34.0 (pg) Final MCHC 02/01/2025 12:15:42 30.5 32.0-36.0 (g/dL) Final RDW 02/01/2025 12:15:42 17.8 11.5-15.5 (%) Final Platelets 02/01/2025 12:15:42 62 Below low normal 140-400 (K/uL) Final MPV 02/01/2025 12:15:42 14.0 6.6-11.1 (fL) Final Nucleated erythrocytes/100 leukocytes [Ratio] in Blood by Automated count 02/01/2025 12:15:42 0 <=0 (/100 WBCs) Final Performing Location [facility]ORY [facility] [place] - [address] [facility] [address]
--- OUTSIDE RECORDS SUMMARY | 2025-02-12 16:08 | External Medical Summary | Summary of Care ---
Author Name Unknown Organization [facility] Address [address] [facility] [place] [address] Phone [phone] Care Team Providers Care Clerk Funeral Detail Name Role Phone Jay Gonzales MD Primary Care [facility] Encounter Details Date Type Department Care Team (Late st Contact Info) Description 01/27/2025 Orders Only Hematology/Oncology Herman Loza [place] [address] [place] [phone] Tunde Plunkett MD [address] [place] [address] Allergies No known active allergiesdocumented as of this encounter (statuses as of 01/27/2025) Medications Multiple Vitamins-Minera ls (CENTRUM ADULTS) TABS [...] NOT CUT, CRUSH OR CHEW (TAKE WITH [id number] DAILY) 90 Capsule 1 5 Active Gabapentin [...] suspected opioid overdose. Seek immediate medical attention. https://[email or web address] [email or web address]/[email or web address]? [email or web address] 2 Each 3 5 Active Morphine Sulfate [...] as of this encounter (statuses as of 01/27/2025) Active Problems Problem Noted Date Diagnosed Date [...] as of this encounter (statuses as of 01/27/2025) Resolved Problems Problem Noted Date Diagnosed Date Resolved Date Acute hypoxic respiratory failure 01/06/2025 01/07/2025 Cholelithiasis 01/06/2025 01/13/2025 OTHER 11/15/2009 08/20/2018 Overview (11/20/2009): Genotype 1a Chronic hepatitis C 09/21/2009 08/20/20 18 documented as of this encounter (statuses as of 01/27/2025) Immunizations Name Administration Dates Next Due TDAP, [...] Care Team (Late st Contact Info) Description 02/01/2025 1:00 PM EDT Laboratory [facility], [address] [phone] [address] 02/02/2025 11:00 AM EDT Hem/Onc Treatment Hematology/Oncology Treatment, [place] [address] [place] [phone] Denia, Chair 3 Hem Onc [address] [place] [address] 02/10/2025 1:00 PM EDT Office Visit Hematology/Oncology [facility] Denia [place] [address] [facility] [place] [phone] Tunde Plunkett MD [address] [place] [address] 02/25/2025 11:00 AM EDT Office Visit [place] [phone] Jay Gonzales MD [address] [place], [place] [phone] Scheduled Procedures Name Priority Associated Diagnoses Date/Ti [...] Not on filedocumented as of this encounter Advance Directives * Full Code (Latest Code Status on File) Date Activated Date Inactivated Comments 01/06/2025 5:26 AM 01/14/2025 8:43 PM This order r eflects the patients wishes and were consensually agreed upon. Question Answer Comments Discussion of Advance Directives occurred with: Patient Care Teams Clerk Funeral Detail Relationship Specialty Start Date End Date Jay Gonzales MD [address] [place] [phone] PCP - General Family Medicine 09/13/22 documented as of this encounter
--- OUTSIDE RECORDS SUMMARY | 2025-02-12 16:08 | External Medical Summary | Summary of Care ---
Author Name Unknown Organization [facility] Address [address] [place] [address] Phone [phone] Care Team Providers Care Economic Development Coordinator Name Role Phone Jay Gonzales MD Primary Care Provi syl Reason for Visit * Reason Onset Date Comments Advice 01/24/2025 Encounter Details Date Type Department Care Team (Late st Contact Info) Description 01/24/2025 Telephone Hematology/Oncology [facility] [address] [facility] [place] [address] Tunde Plunkett MD 200 [place] [address] Advice () Allergies No known active allergiesdocumented as of [...] NOT CUT, CRUSH OR CHEW (TAKE WITH [id number] DAILY) 90 Capsule 1 5 Active Gabapentin [...] suspected opioid overdose. Seek immediate medical attention. [email or web address] [email or web address]/watch? [email or web address] 2 Each 3 5 Active Morphine Sulfate [...] of Assessment Author Yes 01/06/2025 6:09 PM JAVIERT Noni [...] Telephone Encounter - Samantha Strange RN - 01/24/2025 3:19 PM EDT Per office note 01/19/25: "Regarding pain management, will start MS Contin 15 mg every 12 hourly and she will continue immediate release morphine sulfate 7.5 mg every 4 to 6 hourly. " Called Gibran, she verbalized understanding, will let her mom know she can still take the short acting morphine as needed. * Telephone Encounter - Celia Lloyd OSA - 01/24/2025 2:56 PM EDT Patient's daughter states that the patient had an appointment with Dr. Plunkett and her medication wasswitched to the 12 hour morphine. Patient's daughter states that the patient is in pain after 5 hours. Patient's daughter states that had told them to call if the patient needed something else. Patient's daughter would like to know what would recommend for the patient. documented in this encounter Plan of Treatment Upcoming Encounters Date Type Department Care Team (Latest Contact Info) Description 01/26/2025 9:45 AM EDT Imaging Radiology, [facility] [address] [place] [address] 01/27/2025 11:30 AM EDT Hospital Encounter OR [facility], Operating Room, [facility] - 4th Floor [address] [phone] Rambo Parker MD [address] [place] [address] 01/27/2025 11:30 AM EDT - 01/27/2025 12:29 PM EDT Surgery OR [facility], Operating Room, [facility] - 4th Floor [address] [place] [phone] Rambo Parker MD [address] [address] INSERT TUNNELED CENTRAL VENOUS ACCESS WITH SUBQ PORT 02/01/2025 1:00 PM EDT Laboratory [facility], [address] [phone] [place], Lab [address] [address] 02/02/2025 11:00 AM EDT Hem/Onc Treatment Hematology/Oncolog y Treatment, [place] [address] [place] [phone] Denia, Chair 3 Hem Onc Scene [address] [facility] [place] [address] 02/10/2025 1:00 PM EDT Office Visit Hematology/Oncolog y [facility] Maira Loza [address] [place] [phone] Tunde Plunkett MD [address] [place] [address] 02/25/2025 11:00 AM EDT Office Visit [address] [phone] Jay Gonzales MD [address] [place] [phone] Scheduled Procedures Name Priority Associated Diagnoses [...] Not on filedocumented as of this encounter Additional Health Concerns Infection Onset [...] Advance Directives occurred with: Patient Care Teams Economic Development Coordinator Relationship Specialty Start Date End Date Jay Gonzales MD [address] [place] [phone] PCP - General Family Medicine 09/13/22 documented as of this encounter
--- OUTSIDE RECORDS SUMMARY | 2025-02-12 16:08 | External Medical Summary | Summary of Care ---
Author Name Unknown Organization [facility] Address [address] [place] [address] Phone [phone] Care Team Providers Care Sql Developer Dba Name Role Phone Jay Gonzales MD [facility] Reason for Referral * Evaluate & Treat - Unlimited Visits (Within 10 days (routine)) - Authorized Specialty Diagnoses / Procedures Referred By Vaibhav roldan Referred To Contact Physical Therapy / Physical Medicine And Rehab Diagnoses Adhesive capsulitis of right shoulder Sg Storm PA-C [address] [place] [address] Phone: tel: fax: Referral ID Status Reason Start Date Expiration Date Visits Requested Visits Authorized [id number] Authorized Specialty Services Required 12/30/2024 999 [id number] Question Answer Referral Priority Within 10 days (routine) Where should this appointment be scheduled? Ena Comments Eval and treat right shoulder adhesive capsulitis. ROM, stretching, strengthening, modalities as needed * Precert (Within 10 days (routine)) - Authorized Specialty Diagnoses / Procedures Referred By Vaibhav roldan Referred To Contact Pain Medicine Diagnoses Adhesive capsulitis of right shoulder Procedures ARTHROCENT ASP &/OR INJ MAJOR JX/BURSA W/O US Sg Storm PA-C [address] [place] [address] Phone: tel: fax: Referral ID Status Reason Start Date Expiration Date V isits Requested Visits Authorized [id number] Authorized 12/30/2024 999 999 Reason for Visit * Reason Comments NEW PATIENT Referred by Dr. Prudence Liang for acute R shoulder pain and decreased ROM * Evaluate & Treat - Unlimited Visits (Within 10 days (routine)) - Authorized Specialty Diagnoses / Procedures Referred By Vaibhav roldan Referred To Contact Orthopaedic Surgery / Orthopedics Diagnoses Right shoulder pain, unspecified chronicity Limited range of motion (ROM) of shoulder Casie Liang MD [address] [place] [address] Phone: tel: fax: Referral ID Status Reason Start Date Expiration Date Visits Requested Visits Authorized [id number] Authorized Specialty Services Required 12/28/2024 999 [id number] Encounter Details Date Type Department Care Team (Late st Contact Info) Description 12/30/2024 2:00 PM EDT [facility] [address] [place] [phone] Sg Storm PA-C [address] [place] [phone] Adhesive capsulitis of right shoulder* Allergies No known active allergiesdocumented as of [...] NOT CUT, CRUSH OR CHEW (TAKE WITH [id number] DAILY) 90 Capsule 1 5 Active Gabapentin [...] for Wheezing. 6.7 g 3 5 Active Vancomycin HCl 125 MG Oral Capsule (Vancocin)Indic ations:Clostrid ium difficile enteritis Take 1 Capsule by mouth every 6 hours. 56 Capsule 5 01/07/20 25 Discontinu ed(Medicat ion List Clean Up) Hospital, Clinic, or Other Facility Administered Medication Ordered Dose Route Frequency Start Date End Date Status lidocaine 1% 1 mL - triamcinolone acetonide 40 mg/mL 1 mL inj 2 mLIndications:Adhesive capsulitis of right shoulder 2 mL IJ ONCE 12/30/2024 12/30/2024 Ended documented as of this encounter (statuses as of 01/25/2025) Active Problems Problem Noted Date Diagnosed Date Recurrent major depressive disorder 12/30/2024 Compensated cirrhosis [...] Problem Noted Date Diagnosed Date Resolved Date OTHER 11/15/2009 08/20/2018 Overview (11/20/2009): Genotype 1a [...] PM EDT documented as of this encounter Progress Notes * Sg Storm PA-C - 12/30/2024 2:52 PM EDT Patient name: Neha Marks Shoulder Exam CHIEF COMPLAINT: Chief Complaint Patient presents with NEW PATIENT Referred by Dr. Casie Liang for acute R shoulder pain and decreased ROM Workmen's Comp: no. HISTORY OF PRESENT ILLNESS: Neha Marks is a 64 year old female who presents for consultation at the request of Dr. Casie Liang to us with a history of right shoulder pain which began about 1 month ago, no known injury or fall. Today the patient's symptoms are remaining the same. Patient describes the pain as severe in intensity and has an indeterminate quality. It does not radiate. The pain is aggravated by any movement- has been very stiff and cannot move the shoulder much at all. There are no alleviating factors identified- she has attempted ice, heat, tylenol and a muscle relaxer without relief. She has been told to avoid NSAIDs due to liver disease, per daughter who accompanies her today. Patient states the pain does wake her from sleep. Patient rates pain scale for this current problem at 9 out of 10. Past Surgical History: Procedure Laterality Date COLONOSCOPY W/ LESION REMOVAL, SNARE 05/20/2011 adentomatous tissue--repeat 3 years COLONOSCOPY, DIAGNOSTIC (RECTUM) 05/06/2019 hyperplastic polyps, repeat 5 yrs/COLONOSCOPY FLEXIBLE PROXIMAL DIAGNOSTIC performed by Leandro Torres MD at [facility]COPY [facility] EGD, FLEXIBLE, DIAGNOSTIC 05/06/2019 normal bx/ESOPHAGOGASTRODUODENOSCOPY (EGD), FLEXIBLE, TRANSORAL, DIAGNOSTIC performed by Leandro Torres MD at ENDOSCOPY [facility] EGD, FLEXIBLE, DIAGNOSTIC 06/20/2022 Portal hypertensive gastropathy, eso varices / ESOPHAGOGASTRODUODENOSCOPY (EGD), FLEXIBLE, TRANSORAL, DIAGNOSTIC performed by Leandro Torres MD at ENDOSCOPY [facility] LASIK SURGERY THUMB FX/DISLOC (MELÉNDEZ), REPAIR 2000 rt Review of patient's allergies indicates: No Known Allergies Current Outpatient Medications Medication Sig Dispense Refill Multiple Vitamins-Minerals (CENTRUM ADULTS) TABS Take by mouth daily. QUEtiapine Fumarate 25 MG Oral Tablet (SEROquel) [...] NOT CUT, CRUSH OR CHEW (TAKE WITH [id number] DAILY) 90 Capsule 1 Gabapentin 100 MG Oral Capsule (Neurontin) Take 1 Capsule by mouth in the morning and 1 Capsule at noon and 1 Capsule before bedtime. Slowly increase the dose over 3 weeks--Start with one capsule in the evening for the first week. Add the afternoon dose on week 2 and the morning dose on week 3.. 90Capsule 5 Vancomycin HCl 125 MG Oral Capsule (Vancocin) Take 1 Capsule by mouth every 6 hours. 56 Capsule 0 Ventolin HFA 108 (90 Base) MCG/ACT Inhalation Aerosol Solution Inhale 2 Puffs by mouth every 4 hours as needed for Wheezing. 6.7 g 3 No current facility-administered medications for this visit. Social History Socioeconomic History Marital status: Tobacco Use Smoking status: Every Day Current packs/day: 0.50 Average packs/day: 0.5 packs/day for 20.0 years (10.0 ttl pk-yrs) Types: Cigarettes Passive exposure: Never Smokeless tobacco: Never Tobacco comments: 10 per day Vaping Use Vaping status: Never Used Substance and Sexual Activity Alcohol use: No Drug use: No Sexual activity: Yes Partners: Male Comment: M 1988, vas Family History Problem Relation Name Age of Onset No Past Hx Mother Gastro-intestinal disorder Father of cirrhosis in fifties, etoh Lung Disorder Sister copd Past Medical History: Diagnosis Date 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-repeat 3 years Chronic hepatitis C (HCC) Generalized anxiety disorder 07/03/2009 Menopause 09/11/2009 Age 46 OTHER 11/15/09 Genotype 1a Pneumonia due to organism as a child ROS EXAM: CONSTITUTIONAL: No change in weight, No weakness, No fatigue, and No fevers, sweats, or chills PULMONARY: No cough, sputum, or hemoptysis, No wheezing, No rales, No shortness of breath, No recent change in breathing, and Positive for mild emphysema CARDIOVASCULAR: No chest pain, No shortness of breath, No dyspnea on exertion, No orthopnea, No paroxysmal nocturnal dyspnea, No edema, No palpitations, No syncope, and Positive for hypertension GASTROINTESTINAL: No abdominal pain, No change in bowel habits, No significant heartburn, No significant change in appetite, No nausea, vomiting, diarrhea, or constipation, No hematemesis, No blood in stools or black tarry stools, No abdominal bloating or early satiety, No dysphagia, and Positive for hepatocellular carcinoma, beginning treatments in [place] FEMALE: No STDs, No dysuria, No frequency, No incontinence, No irregular menstruation, No urgency, and No vaginal discharge HEMATOLOGIC: No coagulation disorder, No anemia, No abnormal bleeding, No chills, No bruising, No HIV risk factors, No night sweats, No swollen nodes, No weight loss, and No history of transfusion EXTREMITIES: No pain, redness or swelling on the joints and except as noted above SKIN/INTEGUMENTARY: No edema, No rash, and No itching NEUROLOGIC: Normal balance, No headaches, No seizures, and No weakness ENDOCRINE: No heat intolerance, No cold intolerance, No thyroid trouble, No excessive thirst or urination, and No history of diabetes PHYSICAL EXAM: Constitutional: generally well-nourished and in no acute distress HEENT: normocephalic, atraumatic Eyes: sclera white Respiratory: normal breathing Neurological: orientation - grossly oriented to person, place and time, attention - attention normal, concentration normal, and fund of knowledge within normal limits Mood and Affect/Psych: normal, affect appropriate, no hallucinations, no delusions present, and no psychotic thoughts Skin is normal Xray: I have personally reviewed the xrays done 12/30/2024 and c/w AC DJD, question irregularity at posterior aspect of acromion process on AP grashey view, not as apparent on scapular view, no acute findings on my independent interpretation Shoulder Exam: right. Skin: No problem. Active ROM: Forward Flexion: 30 degrees, pseudoparalytic Abd: Unable to perform Abder: Unable to perform Passive Supine ROM: Forward Flexion: 45 degrees Abder: Unable to perform due to pain Strength: Supraspinatus/Empty can test: Unable to perform due to pain and limited ROM External Rotators: 4/5 Internal Rotators: 4/5 Impingement Maneuvers: Pain with Lujan' maneuver: grade III- difficult to perform due to pain and stiffness with any movement Pain with Neer's maneuver: grade III Acromioclavicular Joint: Tender to palpation: YES. Tender on Xarm Abduction: NO Crepitus at ac joint on FF: NO. Biceps Tendon: Tender to palpation: NO. Scapular Symmetry: Winging on motion of scapula: NO Neurovascular Intact Impression: right shoulder adhesive capsulitis Plan: Discussed exam, imaging findings, diagnosis, and treatment options with patient and daughter including PT, oral or injection steroids, and advanced imaging to rule out rotator cuff involvement. Discussed that due to motion limitations on exam, difficult to determine rotator cuff involvement in presence of likely adhesive capsulitis, but discussed that this is often co-occurring. Due to prior provider recommendation per daughter, will avoid prescription oral NSAIDs or tylenol due to liver disease. They opt to proceed with PT script and cortisone injection today. Educated patient on steroid flare reaction, risk of infection as well as signs and symptoms of infection. Advised patient to rest following the injection and ice the shoulder. Call office with any concerns. Follow up 2 weeks telephonic encounter- if no improvement, will consider MRI for further evaluation Orthopaedic Procedure Clinic Note Date of Procedure: 12/30/2024 PROCEDURE NOTE INTRAARTICULAR INJECTION SITE: right shoulder DIAGNOSIS: adhesive capsulitis Lidocaine 1.0 % 1 mL Triamcinolone Acetonide 40 mg/mL 1 mL A timeout was called immediately prior to the procedure, to confirm the correct patient, procedure,and site. The site was marked by the physician prior to the procedure. Site was identified: shoulder: Right ROUTE: Subacromial I injected the patient Sg Storm PA-C Orthopaedics, [address] [phone] 12/30/2024 2:52 PM documented in this encounter Nursing Notes * Chadd Christina LPN - 12/30/2024 1:51 PM EDT Here for Today's visit regarding: Referred by Dr. Casie Liang for acute R shoulder pain and decreased ROM C/o 9/10 R shoulder pain, denies numbness or tingling. Denies injury, states decreased ROM and pain started 1.5 month ago Prior treatment: Tylenol, muscle relaxer, ice, heat documented in this encounter Miscellaneous Notes * Result Encounter Note - Casie Liang MD - 01/01/2025 9:[address] chest order placed. Patient is under ortho care (right shoulder pain) documented in this encounter Plan of Treatment Upcoming Encounters Date Type Department Care Team (Latest Contact Info) Description 01/26/2025 9:45 AM EDT Imaging Radiology, [facility] [address] [place] [phone] 01/27/2025 11:30 AM EDT Hospital Encounter OR [facility], Operating Room, [facility] - 4th Floor [address] [place] [phone] Rambo Parker MD [address] [place] [address] 01/27/2025 11:30 AM EDT - 01/27/2025 12:29 PM EDT Surgery OR [facility], Operating Room, [facility] - 4th Floor [address] [place] [address] [place] [phone] Rambo Parker MD [address] [place] [address] INSERT TUNNELED CENTRAL VENOUS ACCESS WITH SUBQ PORT 02/01/2025 1:00 PM EDT Laboratory [facility] [phone] [place], [facility] [place] [address] [place] [address] 02/02/2025 11:00 AM EDT Hem/Onc Treatment Hematology/Oncolog y Treatment, [place] [address] [place] [address] [place], Chair 3 Hem Onc Sc[facility]ery [address] [place] [phone] 02/10/2025 1:00 PM EDT Office Visit Hematology/Oncolog y [facility] [place] [address] [facility] [place] [address] Tunde Plunkett MD [address] [facility] [place] [address] 02/25/2025 11:00 AM EDT Office Visit [facility] [address] [place] [address] Jay Gonzales MD [address] [place] [address] Scheduled Orders Name Type Priority Associated Diagnoses Orde r Schedule ARTHROCENT ASP &/OR INJ MAJOR JX/BURSA W/O US Procedures Routine Adhesive capsulitis of right shoulder Ordered: 12/30/2024 Scheduled Procedures Name Priority Associated Diagnoses Date/Ti me INSERT TUNNELED CENTRAL VENOUS ACCESS WITH SUBQ PORT Hepatocellular carcinoma (HCC) Metastasis to bone (HCC) 01/27/2025 11:30 AM EDT COLONOSCOPY FLEXIBLE PROXIMAL DIAGNOSTIC Recall Personal history of colonic polyps Scheduled Referrals Name Type Priority Associated Diagnoses Orde r Schedule PHYSICAL THERAPY REFERRAL OP Referral Within 10 days (routine) Adhesive capsulitis of right shoulder Ordered: 12/30/2024 Health Maintenance Due Date Last Done Comments [...] Not on filedocumented as of this encounter Procedures Procedure Name Priority Date/Time Associated Diagnosis Comments XR SHOULDER, 2 OR MORE VIEWS Routine 12/30/2024 2:46 PM EDT documented in this encounter Results * XR SHOULDER, 2 OR MORE VIEWS (12/30/2024 2:46 PM EDT) Anatomical Region Laterality Modality Upper Extremity, Shoulder Comput ed Radiography 12/30/2024 10:1 5 PM EDT Impressions 12/30/2024 10:13 PM EDT IMPRESSION There is a questionable right lung opacity measuring 3.[address] A request to the Radiology Family Helper(MARYANN) was placed at 22:13 on 12/30/2024 in the MARYANN result communication system to notify the ordering physician of the above findings. Narrative 12/30/2024 10:13 PM EDT EXAM XR SHOULDER, 2 OR MORE VIEWSUPREXT HISTORY pain COMPARISON None FINDINGS No acute displaced fracture or dislocation. Cortical spurring and cystic change at the greater tuberosity suggestive of chronic rotator cuff tendinopathy and/or tearing. Mild degenerative change of the AC joint Procedure Note Edison Pool MD - 12/30/2024 EXAM XR SHOULDER, 2 OR MORE VIEWSUPREXT HISTORY pain COMPARISON None FINDINGS No acute displaced fracture or dislocation. Cortical spurring and cysticchange at the greater tuberosity suggestive of chronic rotator cufftendinopathy and/or tearing. Mild degenerative change of the AC joint IMPRESSION IMPRESSION There is a questionable right lung opacity measuring 3.[address] A request to the Radiology Family Helper(MARYANN) was placed at22:13 on 12/30/2024 in the MARYANN result communication system to notify theordering physician of the above findings. 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) Chronic hepatitis C without mention of hepatic coma HTN, goal below 130/80 Unspecified essential hypertension Adhesive capsulitis of right shoulder- Primary Adhesive capsulitis of shoulder Hepatocellular carcinoma (HCC) Malignant neoplasm of liver, primary 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 documented in this encounter Administered Medications Inactive Administered Medications - up to 3 most recent administrations Medication Order MAR Action Action Date Dose Rate Site lidocaine 1% 1 mL - triamcinolone acetonide 40 mg/mL 1 mL inj 2 mL 2 mL, Injection, ONCE, On [place] 12/30/24 at 1545, For 1 dose, lidocaine 1% 1 mL - triamcinolone acetonide 40 mg/mL 1 mL inj TOTAL VOLUME 2 mL SYRINGE REFRIGERATE and SHAKE WELLIndications:Adhesive capsulitis of right shoulder Given 12/30/2024 3:25 PM EDT 2 mL Shoulder Right documented in this encounter Additional Health Concerns [...] Advance Directives occurred with: Patient Care Teams Sql Developer Dba Relationship Specialty Start Date End Date Jay Gonzales MD [address] [place] [phone] PCP - General Family Medicine 09/13/22 documented as of this encounter
--- OUTSIDE RECORDS SUMMARY | 2025-02-12 16:08 | External Medical Summary | Summary of Care ---
Author Name Unknown Organization [facility] Address [address] [place] [address] Phone [phone] Care Team Providers Care Packing And Stamping Machine Operator Name Role Phone Jay Gonzales MD Primary Care Provi syl Reason for Visit * Reason Onset Date Comments Test Results 01/27/2025 Plunkett Encounter Details Date Type Department Care Team (Late st Contact Info) Description 01/27/2025 Telephone Hematology/Oncology [facility] [address] [place] [address] Services, Scheduling [address] [place] [address] Test Results ([facility]) Allergies No known active allergiesdocumented as of this encounter (statuses as of 01/28/2025) Medications Multiple Vitamins-Minera ls (CENTRUM ADULTS) TABS [...] NOT CUT, CRUSH OR CHEW (TAKE WITH [id number] DAILY) 90 Capsule 1 5 Active Gabapentin [...] suspected opioid overdose. Seek immediate medical attention. [email or web address] 2 Each 3 5 Active Additional Information [...] as of this encounter (statuses as of 01/28/2025) Active Problems Problem Noted Date Diagnosed Date [...] as of this encounter (statuses as of 01/28/2025) Resolved Problems Problem Noted Date Diagnosed Date Resolved Date Acute hypoxic respiratory failure 01/06/2025 01/07/2025 Cholelithiasis 01/06/2025 01/13/2025 OTHER 11/15/2009 08/20/2018 Overview (11/20/2009): Genotype 1a Chronic hepatitis C 09/21/2009 08/20/20 18 documented as of this encounter (statuses as of 01/28/2025) Immunizations Name Administration Dates Next Due TDAP, [...] 6:09 PM JAVIERT Noni Molina RN * Because of a physical, mental, or emotional condition, do you have difficulty doing errands alone such as visiting a doctor’s office or shopping? (15 years old or older) Answer Date of Assessment Author Yes 01/06/2025 6:09 PM JAVIERT Noni Molina RN documented as of this encounter Mental Status * Because of a physical, mental, or emotional condition, do you have serious difficulty concentrating, remembering, or making decisions? (5 years old or older) Answer Entry Date Author Yes 01/06/2025 6:09 PM Noni Castellon RN documented in this encounter Miscellaneous Notes * Telephone Encounter - Tunde Plunkett MD - 01/27/2025 6:37 PM EDT I spoke with her on the phone and reviewed the PET-CT scan findings, overall right lobe liver mass which is about 6 and, upper abdominal lymphadenopathy mainly in the luz hepatis measuring about 2.4 x 3.7 cm, scattered omental/peritoneal nodularity, right scapular lesion measuring 2.2 x 2.9 cm and several other additional bone lesions involving the spine, ribs and the pelvis. Port placement done today, overall she is doing better. * Telephone Encounter - Audi Dale RN - 01/27/2025 3:[address] Plunkett - please review. Patient isn't scheduled to see you until 02/10. * Telephone Encounter - Stacy Cedeno OSA - 01/27/2025 3:46 PM EDT Patient daughter Gibran called to discuss pet scan results. Please contact her at [phone] documented in this encounter Plan of Treatment Upcoming Encounters Date Type Department Care Team ([facility] st Contact Info) Description 02/01/2025 1:00 PM EDT Laboratory Laboratory Patient Service [address] [phone] [address] 02/02/2025 11:00 AM EDT Hem/Onc Treatment Hematology/Oncology Treatment, [address] [address] [place], Chair [address] [address] 02/10/2025 1:00 PM EDT Office Visit Hematology/Oncology [address] [address] Tunde Plunkett MD [address] [place] [address] 02/25/2025 11:00 AM EDT Office Visit Family [address] [phone] Jay Gonzales MD [address] [place] [phone] Scheduled Procedures Name Priority Associated Diagnoses [...] this encounter Medical Devices Implanted Type Area Linux Administrator Device Identifier Shelf Expiration Date Model / Serial / Lot Port Implant W8f Poly Cath - [id number] Implanted:Qty : 1 on 01/27/2025 by Rambo Parker MD at [facility] Right: Chest CR BARD : PERIPHERAL VASCULAR [id number] 12/17/2025 [id number] / / [id number] documented as of this encounter Advance Directives * Full Code (Latest Code Status on File) Date Activated Date Inactivated Comments 01/06/2025 5:26 AM 01/14/2025 8:43 PM This order r eflects the patients wishes and were consensually agreed upon. Question Answer Comments Discussion of Advance Directives occurred with: Patient Care Teams Packing And Stamping Machine Operator Relationship Specialty Start Date End Date Jay Gonzales MD [address] [place] [phone] PCP - General Family Medicine 09/13/22 documented as of this encounter
--- OUTSIDE RECORDS SUMMARY | 2025-02-12 16:08 | External Medical Summary | Summary of Care ---
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) [C79.51] Procedures INSER TUNN ACC DEV;5 YRS/OLDER INSERT TUNNELED CENTRAL VENOUS ACCESS WITH SUBQ PORT Rambo Parker MD [address] [address] Phone: tel: fax: OR [facility], Operating Room, [facility] - 4th Floor [address] [phone] Phone: tel: Referral ID Status Reason Start Date Expiration Date Visits Re quested Visits Authorized [id number] Encounter Details Date Type Department Care Team (Latest Contact Info) Description 01/27/2025 10:32 AM EDT - 01/27/2025 1:53 PM EDT Hospital Encounter OR [facility], Operating Room, [facility] - 4th Floor [address] [phone] Rambo Parker MD [address] [address] Discharge Disposition: Home - Self Care Allergies No known active allergiesdocumented as of this encounter (statuses as of 01/28/2025) Medications Multiple Vitamins-Rarden als (CENTRUM ADULTS) TABS Take 1 Tablet by mouth in the morning. Active QUEtiapine Fumarate 25 MG Oral Tablet (SEROquel)Heather cations:Mood disorder (HCC) Take 1 Tablet by mouth at bedtime. 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 90 Tablet 3 09/14/20 24 Active Venlafaxine HCl ER 150 MG Oral Capsule Extended Release 24 Hour (Effexor XR)Indications :Mood disorder (HCC) TAKE 1 CAPSULE BY MOUTH EVERY DAY DO NOT CUT, CRUSH, OR CHEW 90 Capsule 1 11/15/19 25 Active Venlafaxine HCl ER 75 MG Oral Capsule Extended Release 24 Hour (Effexor XR)Indications :Mood disorder (HCC) TAKE 1 CAPSULE BY MOUTH DAILY. DO NOT CUT, CRUSH OR CHEW (TAKE WITH [id number] DAILY) 90 Capsule 1 11/15/19 25 Active Gabapentin 100 MG Oral Capsule (Neurontin) Take 1 Capsule by mouth in the morning and 1 Capsule at noon and 1 Capsule before bedtime. Slowly increase the dose over 3 weeks--Start with one capsule in the evening for the first week. Add the afternoon dose on week 2 and the morning dose on week 3.. 90 Capsule 5 11/30/19 25 Active Ventolin HFA 108 (90 Base) MCG/ACT Inhalation Aerosol SolutionIndica tions:Wheezing Inhale 2 Puffs by mouth every 4 hours as needed for Wheezing. 6.7 g 3 12/29/19 25 Active Morphine Sulfate 15 MG Oral Tablet (Msir) Take 0.5 Tablets by mouth every 6 hours. 90 Tablet 5 4:09 PM EDT 01/15/20 25 Active Cholestyramine Light 4 GM Oral Packet (Prevalite) Take 1 Packet by mouth in the morning and 1 Packet before bedtime. 60 Packet 3 5 4:09 PM EDT 01/15/20 Active Additional Information Patient not taking.Reported on 01/27/2025 Fidaxomicin 200 MG Oral Tablet (Dificid)Indic ations:C. difficile diarrhea Take 1 Tablet by mouth in the morning and 1 Tablet before bedtime. 10 Tablet 5 4:09 PM EDT 01/15/20 Active Additional Information Patient not taking.Reported on 01/27/2025 Naloxone HCl 4 MG/0.1ML Nasal Liquid (Narcan Nasal) Administer 1 spray into 1 nostril for suspected opioid overdose. Seek immediate medical attention. [email or web address]://[email or web address].com/watch? [email or web address] 2 Each 3 01/15/20 Active Additional Information Patient not taking.Reported on 01/27/2025 Morphine Sulfate ER 15 MG Oral Tablet Extended Release (MS Contin)Indicat ions:Hepatocel lular carcinoma (HCC),Metastas is to bone (HCC) Take 1 Tablet by mouth in the morning and 1 Tablet before bedtime. 60 Tablet 01/20/20 25 Active Prochlorperazi ne Maleate 10 MG Oral Tablet (Compazine)Ind ications:Hepat ocellular carcinoma (HCC),Metastas is to bone (HCC) Take 1 Tablet by mouth every 6 hours as needed for Nausea. 60 Tablet 2 01/20/20 25 Active Ondansetron HCl 8 MG Oral Tablet (Zofran)Indica tions:Hepatoce llular carcinoma (HCC),Metastas is to bone (HCC) Take 1 Tablet by mouth every 8 hours as needed for Nausea. 30 Tablet 3 01/20/20 25 Active Furosemide 20 MG Oral Tablet (Lasix)Indicat ions:Hepatocel lular carcinoma (HCC),Metastas is to bone (HCC),Leg edema Take 1 Tablet by mouth in the morning. 30 Tablet 01/20/20 25 Active Spironolactone 25 MG Oral Tablet (Aldactone)Ind ications:Hepat ocellular carcinoma (HCC),Metastas is to bone (HCC),Leg edema Take 1 Tablet by mouth in the morning and 1 Tablet before bedtime. 60 Tablet 3 04/02/20 25 Active tiZANidine HCl 2 MG Oral Tablet (Zanaflex)Heather cations:Chroni c right shoulder pain TAKE 1 TABLET BY MOUTH DAILY AT BEDTIME NEEDED FOR MUSCLE SPASMS. 30 Tablet 01/26/20 25 Active Ondansetron HCl 4 MG Oral Tablet Take 1 Tablet by mouth every 8 hours as needed for Nausea. 20 Tablet 5 4:09 PM EDT 01/15/20 25 025 Discontinued documented as of this encounter (statuses as [...] Passive Smoke Exposure: Never Smokeless Tobacco: Never Tobacco Cessation:Counseling Given: Not Answered Comments:10 per day Alcohol Use Standard Drinks/Week [...] Sign Reading Time Taken Comments Blood Pressure 117/60 01/27/2025 1:41 PM EDT Pulse 97 01/27/2025 1:41 PM EDT Temperature 36.9 °C (98.4 °F) 01/27/2025 1:41 PM ED T Respiratory Rate 18 01/27/2025 1:41 PM EDT Oxygen Saturation 92% 01/27/2025 1:41 PM EDT Inhaled Oxygen Concentration - - Weight 79.2 kg (174 lb 9.7 oz) 01/27/2025 10:55 AM EDT Height 160 cm (5' 2.99") 01/27/2025 10:55 AM EDT Body Mass Index 30.94 01/27/2025 10:55 AM EDT documented in this [...] Noni Molina RN documented in this encounter Discharge Instructions * Discharge Instr - AVS* Rambo Parker MD - 01/27/2025 1:17 PM EDT Discharge Date: 01/27/2025 Provider: Dr. Rambo Parker If you are experiencing any problems related to your procedure, please contact Interventional Radiology at [phone] during normal business hours: Friday- Friday 7:30 am - 4 pm. If a problem occursoutside of normal business hours, please call the hospital hoop coiling machine operator at [phone] and ask for theInterventional Radiologist external relations director. Contact scheduling for Interventional Radiology at [phone] during normal business hours: Friday-Friday, 7:30 am - 4 pm. The information below provides you with the instructions and the list of medications you need to betaking following discharge from the hospital. If you have any questions, please ask before leaving.Please carry this letter with you when you see your doctor in the clinic. If you have questions, you can reach us at the numbers above. SPECIAL INSTRUCTIONS Mediport Insertion (Implanted Central Venous Access) A Mediport is a sealed chamber covered by a silicone disc that is surgically placed in a pocket under the skin on the upper chest, just below the collarbone. This chamber connects to a flexible tube that goes into a large vein in the neck. The tip is near the heart. The port provides direct access to the bloodstream and can be used in drawing blood samples and giving intravenous fluids and medications. Some ports allow CT scan injections; these ports are referred to as "Power Ports." The port will be visible only as a small raised area beneath your skin. Home Care If you experience pain or discomfort at the site you may use a cold pack on the site and/or take acetaminophen (Tylenol) or your preferred pain medicine as directed. Avoid contact sports or any activity that may cause blunt force impact to the port area, as it may damage your port. Avoid strenuous activity for 24 to 48 hours after the procedure. Do not lift anything heavier than 10 pounds for 3 days after the procedure. Gradually increase your activity after 24 to 48 hours after the procedure. No dressing changes or wound care are needed at the insertion site. Your wound is closed with sutures on the inside and then sealed on the outside with a special "skin glue" called Dermabond (a surgical glue). Depending on your physician's preference, there may also be "steri strips" applied. It isvery important to let these special bandages fall off on their own. Please do not scrub or pull these bandages off. You may gently wash the area with soap and water. Depending on your physician's preference, there may also be gauze and Tegaderm (clear) bandage overthe Mediport insertion site. You may remove this bandage in 24 hours. You may shower in 24 hours. Gently wash the area and pat it dry. Please DO NOT take a bath, soak in a hot tub, or swim until the wound is completely healed. Your port must be accessed and flushed/heparinized every 30 days if it is not currently being used. When to Call Interventional Radiology Call Interventional Radiology right away if you have any of the following: Fever above 100 degrees Fahrenheit Increased bleeding, redness, swelling, warmth, or discharge at the incision site. Constant or increasing pain, numbness, coldness, or tingling around the incision area. Vomiting or nausea that does not go away If at any time you experience any of the following or feel you are having a medical emergency, [id number] for emergency assistance. Chest Pain Sudden, severe shortness of breath Rapid heart rate Sudden onset of weakness Do not smoke or use tobacco products in any way! If you feel suicidal or homicidal, please call the crisis hotline at 1-401-192-YHWU (3856) MODERATE SEDATION You may have received medication that made you comfortable/sedated you during your procedure. This is considered moderate sedation. This medication was given to relax you. You may also not remember having the procedure done. It may take up to 24 hours for this medication to be out of your system. Because of this, you should observe the following for the next 24 hours: Do not drink alcohol or take depressant drugs. Do not operate any type of machinery that requires hand-eye coordination. Do not sign any legal papers or documents. Do not make any financial decisions. You should be in the presence of an adult for the remainder of the day. If you are experiencing any problems related to your procedure, you should contact the Interventional Radiology physician unless otherwise directed. Driving: You may resume driving 1 day . Diet: You may resume your current diet as tolerated. Return to work or school: You may return to school or work 1 days after the procedure, unless otherwise instructed by the physician. documented in this encounter Progress Notes * Rambo Parker MD - 01/27/2025 1:17 PM EDT [address] [address] OUTPATIENT SURGERY DISCHARGE SUMMARY NOTE Name: Nhea Marks Location: [facility] Date: 01/27/2025 Time: 1:17 PM Surgery Date: 01/27/2025 Procedure: INSERT TUNNELED CENTRAL VENOUS ACCESS WITH SUBQ PORT Right Surgeon: Rambo Parker MD Discharge Diagnosis: port placement After examination of this patient, I have determined she is ready for discharge to home when the patient meets criteria. Discharge instructions were given to the patient. documented in this encounter H&P Notes * Rambo Parker MD - 01/27/2025 11:59 AM EDT HISTORY & PHYSICAL - Interventional Radiology Service [address] [address] Name: Neha Marks Location: [place] [facility]/[place] Date: 01/27/2025 Time: 11:59 AM CHIEF COMPLAINT: Port placement HISTORY OF PRESENT ILLNESS: Hepatocellular carcinoma Past Medical History: Diagnosis Date Benign neoplasm [...] performed by Leandro Torres MD at END[facility]COPY [facility] EGD, FLEXIBLE, DIAGNOSTIC 05/06/2019 normal bx/ESOPHAGOGASTRODUODENOSCOPY (EGD), FLEXIBLE, TRANSORAL, DIAGNOSTIC performed by Leandro Torres MD at END[facility]COPY [facility] EGD, FLEXIBLE, DIAGNOSTIC 06/20/2022 Portal hypertensive gastropathy, eso varices / ESOPHAGOGASTRODUODENOSCOPY (EGD), FLEXIBLE, TRANSORAL, DIAGNOSTIC performed by Leandro Torres MD at ENDOSCOPY [facility] IR BIOPSY 01/12/2025 LASIK SURGERY THUMB FX/DISLOC [...] on file Housing Stability: Not on file Family History Problem Relation Name Age of Onset No Past Hx Mother Gastro-intestinal disorder Father of cirrhosis in fifties, etoh Lung Disorder Sister copd Review of patient's allergies indicates: No Known Allergies Current Facility-Administered Medications Medication Dose Route Frequency Provider Last Rate Last Admin Isolyte-S pH 7.4 infusion Intravenous Continuous Rambo Parker MD 10 mL/hr at 01/27/25 1121 New Bag at 01/27/25 1121 REVIEW OF SYSTEMS: Constitutional: (-) fever chills sweats or weight loss Cardiovascular: (-) negative: no chest pain, dyspnea, syncope, or palpitations Pulmonary: (-) negative: no cough, wheezing, or shortness of breath Abdominal/GI: (-) negative: no pain, heartburn, dysphagia, bleeding, change in bowel habits, nauseaor vomiting OBJECTIVE: BP 128/71 | Pulse 93 | Temp 36.9 °C (98.4 °F) (Tympanic) | Resp 18 | Ht 1.6 m (5' 2.99") | Wt 79.2 kg (174 lb 9.7 oz) | SpO2 93% | BMI 30.94 kg/m² | BSA 1.88 m² PHYSICAL EXAM: Constitutional: no acute distress CV: normal rate and rhythm, no murmur, gallops or rub Chest: normal respiratory effort, lungs clear to auscultation and percussion, crackles right base Abdomen: normal: soft, bowel sounds normal, no masses, tenderness or organomegaly LABS: CBC Results: PT INR Results: Results for orders placed or performed during the hospital encounter of 01/06/25 PT INR Result Value Ref Range Prothrombin Time 17.8 (H) 11.6 - 15.2 seconds INR 1.5 (H) 0.8 - 1.2 PT INR Result Value Ref Range Prothrombin Time 18.2 (H) 11.6 - 15.2 seconds INR 1.5 (H) 0.8 - 1.2 PT INR Result Value Ref Range Prothrombin Time 17.8 (H) 11.6 - 15.2 seconds INR 1.5 (H) 0.8 - 1.2 BUN Results: Lab Results Component Value Date/Time BUN - [facility] 8 01/21/2025 12:53 PM BUN - [facility] 9 01/14/2025 06:54 AM BUN - [facility] 8 01/13/2025 06:43 AM BUN - [facility] 9 10/10/2020 09:12 AM BUN - [facility] 9 08/11/2020 02:51 PM BUN - [facility] 9 09/22/2019 10:32 AM Creatinine Results: Lab Results Component Value Date/Time CREATININE - [facility] 0.7 01/21/2025 12:53 PM CREATININE - [facility] 0.6 01/14/2025 06:54 AM CREATININE - [facility] 0.6 01/13/2025 06:43 AM CREATININE - [facility] 0.8 10/10/2020 09:12 AM CREATININE - [facility] 0.7 08/11/2020 02:51 PM CREATININE - [facility] 0.7 09/22/2019 10:32 AM Potassium Results: Lab Results Component Value Date/Time POTASSIUM - [facility] 3.5 01/21/2025 12:53 PM POTASSIUM - [facility] 3.7 01/14/2025 06:54 AM POTASSIUM - [facility] 3.3 (L) 01/13/2025 06:43 AM POTASSIUM - [facility] 4.1 10/10/2020 09:12 AM POTASSIUM - [facility] 3.8 08/11/2020 02:51 PM POTASSIUM - [facility] 3.6 09/22/2019 10:32 AM INFORMED CONSENT: Yes PRE-SEDATION ASSESSMENT IMPRESSION/PLAN: Port placement Rambo Parker MD documented in this encounter Nursing Notes * Tonya Miller RN - 01/27/2025 12:49 PM EDT Pt condition was reassessed by Dr. Rambo Parker immediately prior to start of moderate sedation and procedure. documented in this encounter OR Notes * OR Surgeon - Rambo Parker MD - 01/27/2025 1:28 PM EDT Procedure: chest medical port placement 01/27/25 INDICATION: central intravenous access needed for chemotherapy.] ATTENDING (OPERATING PHYSICIAN): [Elena] CONSENT: After a detailed discussion of the procedure, risks, benefits and alternative treatment options, informed consent was obtained. TIME OUT: A time out procedure was performed. The patient's identification was verified. Informed consent with agreement of procedure, site and position was obtained. All necessary equipment was available prior to procedure. CONTRAST: No contrast was administered. COMPLICATIONS: None. ANESTHESIA: [Local lidocaine.] [IV Versed.] [IV Fentanyl.] SEDATION TIME: [Start to end: [ 13]. Qualified nurse sedation observer [Jorge, CAREY.] MEDICATIONS: See MAR PROCEDURE DESCRIPTION: The [right neck and chest were prepped and draped in the usual sterile fashion. After local anesthesia, a small incision was made at the site of venous access in the neck. Using real-time ultrasound guidance, the internal jugular vein was punctured with a micro puncture needle. Digital ultrasound images were acquired and digitally archived. A wire and sheath were used to secure access to the internal jugular vein access using fluoroscopic guidance. [A second incision was made in the upper chest and a pocket was created. The medical port catheter was tunneled from the pocket to the venotomy site. A peel- away sheath was placed through the venotomy over the wire and the catheter was advanced through a peel-away sheath and positioned under fluoroscopic guidance. The catheter was then measured to [22] cm, cut, and attached to a power injectable port.] Once the medical port and catheter were in satisfactory position, the medical port was accessed, had appropriate blood return, and easily flushed and was locked with dilute heparin. [The incision wasthen closed in layers with absorbable sutures and tissue adhesive.] The venotomy site was closed with [absorbable suture and] tissue adhesive. I personally performed the procedure. Findings: Ultrasound shows an anechoic and compressible [right] internal jugular vein. The medical port is inthe upper chest with the catheter tip at the [right atrium] Impression: Successful placement of a chest power injectable medical port. * Operative Report Brief - Rambo Parker MD - 01/27/2025 1:16 PM EDT PROCEDURE NOTE - Interventional Radiology [address] [address] Name: Neha Marks Location: [facility]/[place] Date: 01/27/2025 Time: 1:16 PM PROCEDURE: port placement SENIOR DATA DEVELOPER: Dr. Rambo Parker ASSISTANTS: none ANESTHESIA: local conscious sedation COMPLICATIONS: none SPECIMEN: none ESTIMATED BLOOD LOSS: negligible FINDINGS: right IJ patent documented in this encounter Miscellaneous Notes * Sedation Note - Rambo Parker MD - 01/27/2025 1:16 PM EDT Post Sedation Evaluation: Cardiovascular status: acceptable Level of consciousness: awake and alert Airway patency: patent Distress - NAD Hydration status - well hydrated Nausea/vomiting - not present Pain Evaluation Pain Assessment Flowsheet Row Most Recent Value [facility] 0-10 (18 years and older) Pain Score 0 (no pain) Vital Signs: Temp: 36.9 °C (98.4 °F) (01/27 1055) BP: 104/56 (01/27 1305) Pulse: 84 (01/27 1305) Resp: 12 (01/27 1305) SpO2: 97 % (01/27 1305) I have personally examined the patient, prescribed the necessary medications as charted, and certify that Neha Marks is recovered for safe discharge from my face to face care. * Pre-Sedation Assessment - Rambo Parker MD - 01/27/2025 12:14 PM EDT PRE-SEDATION ASSESSMENT PRE-SEDATION ASSESSMENT: Port Placement Level of sedation planned: Minimal Patient's allergies reviewed: Yes H&P Review / Interval Note Documentation: There is no H&P on file. Difficulty with sedation / anesthesia: No Sleep apnea: No History of snoring: No History of difficult intubation: No Decreased ROM neck flexion/extension: No Tracheal deviation: No Decreased ability to open mouth / TMJ: No Loose teeth / dentures / partial: No Congenital deformities / abnormalities: No Dysphagia: No Mallampati Classification: II - soft palate, uvula, fauces visible Chest: Clear Heart: Regular Rhythm Adequate Vascular Access: Yes ASA Risk Stratification (Select One): ASA 2 - Mild systemic disease, no functional limitations The patient was identified and the procedure verified: Yes The patient was reevaluated immediately prior to the sedation: 01/27/2025 12:14 PM documented in this encounter Plan of Treatment Upcoming Encounters Date Type Department Care Team ([facility] st Contact Info) Description 02/01/2025 1:00 PM EDT Laboratory Laboratory Patient Service [address] [phone] [address] 02/02/2025 11:00 AM EDT Hem/Onc Treatment Hematology/Oncology [address], [address] [address] Denia, Chair [address] [place] [address] 02/10/2025 1:00 PM EDT Office Visit Hematology/Oncology [facility] [address] [place] [phone] Tunde Plunkett MD [address] [place] [address] [place] [address] 02/25/2025 11:00 AM EDT Office Visit [address] [phone] Jay Gonzales MD [address] [place] [phone] Scheduled Procedures Name Priority Associated Diagnoses Date/Ti [...] this encounter Medical Devices Implanted Type Area Client Manager Device Identifier Shelf Expiration Date Model / Serial / Lot Port Implant [id number] Poly Cath - [id number] Implanted:Qty : 1 on 01/27/2025 by Rambo Parker MD at OR [facility] Right: Chest CR BARD : PERIPHERAL VASCULAR [id number] 12/17/2025 [id number] / / [id number] documented as of this encounter Procedures Procedure Name Priority Date/Time Associated Diagnosis Comments IR INTERVENTIONAL RADIOLOGY PROCEDURE IN OR Routine 01/27/2025 1:05 PM EDT documented in this encounter Results * IR INTERVENTIONAL RADIOLOGY PROCEDURE IN OR (01/27/2025 1:05 PM EDT) 01/27/2025 1:30 PM EDT Impressions [facility] RADIOLOGY - 01/27/2025 1:28 PM EDT IMPRESSION: Successful placement of a chest power injectable medical port. [facility]ative [facility] - 01/27/2025 1:28 PM EDT PROCEDURE: chest medical port placement 01/27/25 INDICATION: central intravenous access needed for chemotherapy. ATTENDING (OPERATING PHYSICIAN): Elena CONSENT: After a detailed discussion of the procedure, risks, benefits and alternative treatment options, informed consent was obtained. TIME OUT: A time out procedure was performed. The patient's identification was verified. Informed consent with agreement of procedure, site and position was obtained. All necessary equipment was available prior to procedure. CONTRAST: No contrast was administered. COMPLICATIONS: None. ANESTHESIA: Local lidocaine. IV Versed. IV Fentanyl. SEDATION TIME: Start to end: 1247-13 13. Qualified nurse sedation observer CAREY Dowell. MEDICATIONS: See [facility] PROCEDURE DESCRIPTION: The right neck and chest were prepped and draped in the usual sterile fashion. After local anesthesia, a small incision was made at the site of venous access in the neck. Using real-time ultrasound guidance, the internal jugular vein was punctured with a micro puncture needle. Digital ultrasound images were acquired and digitally archived. A wire and sheath were used to secure access to the internal jugular vein access using fluoroscopic guidance. A second incision was made in the upper chest and a pocket was created. The medical port catheter was tunneled from the pocket to the venotomy site. A peel-away sheath was placed through the venotomy over the wire and the catheter was advanced through a peel-away sheath and positioned under fluoroscopic guidance. The catheter was then measured to 22 cm, cut, and attached to a power injectable port. Once the medical port and catheter were in satisfactory position, the medical port was accessed, had appropriate blood return, and easily flushed and was locked with dilute heparin. The incision was then closed in layers with absorbable sutures and tissue adhesive. The venotomy site was closed with absorbable suture and tissue adhesive. I personally performed the procedure. FINDINGS: Ultrasound shows an anechoic and compressible right internal jugular vein. The medical port is in the upper chest with the catheter tip at the right atrium Procedure Note Rambo Parker MD - 01/27/2025 PROCEDURE: chest medical port placement 01/27/25 INDICATION: central intravenous access needed for chemotherapy. ATTENDING (OPERATING PHYSICIAN): Elena CONSENT: After a detailed discussion of the procedure, risks, benefits andalternative treatment options, informed consent was obtained. TIME OUT: A time out procedure was performed. The patient's identificationwas verified. Informed consent with agreement of procedure, site andposition was obtained. All necessary equipment was available prior toprocedure. CONTRAST: No contrast was administered. COMPLICATIONS: None. ANESTHESIA: Local lidocaine. IV Versed. IV Fentanyl. SEDATION TIME: Start to end: 7 13. Qualified nurse sedationobserver CAREY Dowell. MEDICATIONS: See MAR PROCEDURE DESCRIPTION: The right neck and chest were prepped and draped inthe usual sterile fashion. After local anesthesia, a small incision wasmade at the site of venous access in the neck. Using real-timeultrasound guidance, the internal jugular vein was punctured with a micropuncture needle. Digital ultrasound images were acquired and digitallyarchived. A wire and sheath were used to secure access to the internaljugular vein access using fluoroscopic guidance. A second incision was made in the upper chest and a pocket was created.The medical port catheter was tunneled from the pocket to the venotomysite. A peel-away sheath was placed through the venotomy over the wire andthe catheter was advanced through a peel-away sheath and positioned underfluoroscopic guidance. The catheter was then measured to 22 cm, cut, andattached to a power injectable port. Once the medical port and catheter were in satisfactory position, themedical port was accessed, had appropriate blood return, and easilyflushed and was locked with dilute heparin. The incision was then closedin layers with absorbable sutures and tissue adhesive. The venotomy sitewas closed with absorbable suture and tissue adhesive. I personally performed the procedure. FINDINGS: Ultrasound shows an anechoic and compressible right internal jugular vein.The medical port is in the upper chest with the catheter tip at the rightatrium IMPRESSION IMPRESSION: Successful placement of a chest power injectable medical port. Rambo Parker MD RAD SPECIAL PROCEDURES Final Res ult [facility] documented in this encounter Administered Medications Inactive Administered Medications - up to 3 most recent administrations Medication Order MAR Action Action Date Dose Rate Site ceFAZolin in dextrose (Ancef) ivpb 2 g 2 g, IV Piggyback, ONCE, 1 dose, On Rica 01/27/25 at 1315, Intra-Op New Bag 01/27/2025 12:58 PM EDT 2 g 100 mL/hr Isolyte-S pH 7.4 infusion Intravenous, at 10 mL/hr, Plasma-LYTE 148, isolyte-S, and isolyte-S pH 7.4 are considered equivalent - including for MAR barcode scanning., CONTINUOUS, Starting on Rica 01/27/25 at 1115, Until Rica 01/27/25 at 1753 New Bag 01/27/2025 11:21 AM EDT 10 mL/hr documented in this encounter Active and Recently Administered Medications Times are shown in EDT. Scheduled Medication Order 01/25/2025 01/26/2025 01/27/2025 ceFAZolin in dextrose (Ancef) ivpb 2 g (COMPLETED) 2 g, IV Piggyback, ONCE, 1 dose, On Rica 01/27/25 at 1315, Intra-Op 1258 (New Bag - Prov ider: Kori Dowell, RN) Continuous Medication Order 01/25/2025 01/26/2025 01/27/2025 Isolyte-S pH 7.4 infusion Intravenous, at 10 mL/hr, Plasma-LYTE 148, isolyte-S, and isolyte-S pH 7.4 are considered equivalent - including for MAR barcode scanning., CONTINUOUS, Starting on Rica 01/27/25 at 1115, Until Rica 01/27/25 at 1753 1121 (New Bag - Prov ider: Liliane Gold, CAREY) PRN Medication Order 01/25/2025 01/26/2025 01/27/2025 buffered lidocaine 1 % inj (CANCELED) ONCE PRN INTRA PROCEDURE, Starting on Rica 01/27/25 at 1301, Until Rica 01/27/25 at 1309, Intra-Op 1301 (Given - Provid er: Rambo Parker MD) fentaNYL (PF) inj (CANCELED) ONCE PRN INTRA PROCEDURE, Starting on Rica 01/27/25 at 1247, Until Rica 01/27/25 at 1309, Intra-Op 1247 (Given - Provid er: Kori Dwoell, RN) hEParin lock FLUSH 10 UNIT/ML inj (CANCELED) ONCE PRN INTRA PROCEDURE, Starting on Rica 01/27/25 at 1301, Until Rica 01/27/25 at 1309, Intra-Op 1301 (Given - Provid er: Rambo Parker MD) midazolam (Versed) 2 MG/2ML inj (CANCELED) ONCE PRN INTRA PROCEDURE, Starting on Rica 01/27/25 at 1247, Until Rica 01/27/25 at 1309, Intra-Op 1247 (Given - Provid er: Kori Dowell RN)1254 (Given - Provider: Kori Dowell RN) documented in this encounter Advance Directives * Full Code (Latest Code Status on File) Date Activated Date Inactivated Comments 01/06/2025 5:26 AM 01/14/2025 8:43 PM This order r eflects the patients wishes and were consensually agreed upon. Question Answer Comments Discussion of Advance Directives occurred with: Patient Care Teams Logistics Director Relationship Specialty Start Date End Date Jay Gonzales MD [address] [place] [address] [place] [phone] PCP - General Family Medicine 09/13/22 documented as of this encounter
--- OUTSIDE RECORDS SUMMARY | 2025-02-12 16:09 | External Medical Summary ---
Author Name Unknown Address Unknown Organization K09:[facility] [place] [address] Laboratory Report Ordering Provider Test Date Status JEREMIAH CROCKETT 01/21/2025 12:53:14 Final Observation Date Value Abnormality Reference (Units ) Status BUN 01/21/2025 12:53:14 8 6-20 (mg/dL) Final Creatinine 01/21/2025 12:53:14 0.7 0.5-1.0 (mg/dL) Final Glomerular filtration rate/1.73 sq M.predicted [Volume Rate/Area] in Serum, Plasma or Blood by Creatinine-based formula (CKD-EPI) 01/21/2025 12:53:14 >90 >=60 (mL/min) Final eGFR is calculated based on the CKD-EPI 2020 equation. Sodium 01/21/2025 12:53:14 141 135-146 (m mol/L) Final Potassium 01/21/2025 12:53:14 3.5 3.5-5.1 (m mol/L) Final Cl 01/21/2025 12:53:14 104 98-107 (mm ol/L) Final CO2 01/21/2025 12:53:14 27 22-32 (mmo l/L) Final Anion gap 01/21/2025 12:53:14 10 7-15 (mmol /L) Final Glucose 01/21/2025 12:53:14 122 Above high normal 70 -120 (mg/dL) Final Albumin 01/21/2025 12:53:14 3.7 Below low normal 3.8 -5.0 (g/dL) Final AST (Aspartate aminotransferase) 01/21/2025 12:53:14 83 Above high normal 10-35 (U/L) Final Alk Phos 01/21/2025 12:53:14 560 Above high normal 35 -130 (U/L) Final Bilirubin, Total 01/21/2025 12:53:14 1.1 <=1 .2 (mg/dL) Final Calcium 01/21/2025 12:53:14 9.8 8.4-10.2 ( mg/dL) Final Protein 01/21/2025 12:53:14 7.1 6.0-8.3 (g /dL) Final ALT (Alanine aminotransferase) 01/21/2025 12:53:14 30 10-35 (U/L) Gilles white Performing Location [facility] [address] [place] [address]
--- OUTSIDE RECORDS SUMMARY | 2025-02-12 16:09 | External Medical Summary ---
Author Name Unknown Address Unknown Organization K01:[facility] - [address] [place] [address] Laboratory Report Ordering Provider Test Date Status JEREMIAH CROCKETT 01/21/2025 12:53:14 Final Observation Date Value Abnormality Reference (Units ) Status Alpha-Fetoprotein 01/21/2025 12:53:14 [address]482.0 Above high normal 0.0-8.3 (ng/mL) Final Performing Location [facility] - [address] [place] [address]
--- OUTSIDE RECORDS SUMMARY | 2025-02-12 16:09 | External Medical Summary | Summary of Care ---
Author Name Unknown Organization [facility] Address [address] [place] [address] Phone [phone] Care Team Providers Care Abnormal Psychology Teacher Name Role Phone Jay Gonzales MD Primary Care Pro[facility] Reason for Visit * Reason Onset Date Comments Scheduling 01/20/2025 Encounter Details Date Type Department Care Team (Late st Contact Info) Description 01/20/2025 Telephone Hematology/Oncology [facility] [address] [facility] [place] [phone] Tunde Plunkett MD [address] [place] [address] Scheduling Allergies No known active allergiesdocumented as of this encounter (statuses as of 01/20/2025) Medications Multiple Vitamins-Minera ls (CENTRUM ADULTS) TABS [...] NOT CUT, CRUSH OR CHEW (TAKE WITH 429=135HU DAILY) 90 Capsule 1 5 Active Gabapentin [...] suspected opioid overdose. Seek immediate medical attention. [email or web address] 2 Each 3 5 Active Morphine Sulfate [...] as of this encounter (statuses as of 01/20/2025) Active Problems Problem Noted Date Diagnosed Date [...] as of this encounter (statuses as of 01/20/2025) Resolved Problems Problem Noted Date Diagnosed Date Resolved Date Acute hypoxic respiratory failure 01/06/2025 01/07/2025 Cholelithiasis 01/06/2025 01/13/2025 OTHER 11/15/2009 08/20/2018 Overview (11/20/2009): Genotype 1a Chronic hepatitis C 09/21/2009 08/20/20 18 documented as of this encounter (statuses as of 01/20/2025) Immunizations Name Administration Dates Next Due TDAP, [...] Noni Molina RN documented in this encounter Miscellaneous Notes * Telephone Encounter - Alee Butler OSA - 01/20/2025 3:04 PM EDT Spoke to patients anish Leary to schedule her mothers Mediport Insertion for 01/27 at [facility] Patient identified by: name Person taught: Patients anish Leary METHOD: Lecture-telephone interview PATIENT INSTRUCTIONS GIVEN: - General Preoperative Instructions Reviewed - NPO Instructions Reviewed, pt to stop eating 8 hours prior to procedure and stop drinking 2 hoursprior to procedure. -Shrinking Machine Operator required Location and check-in instructions Verbalizes understanding of education: Yes Procedure date at time of Imaging Encounter: 01/27 What procedure is patient having? Mediport Insertion Laterality confirmed as Not Applicable Does the patient have a yellow bar? did not The Patient and Family member was given the opportunity to ask questions concerning the procedure. Signature: TORI Palacio 01/20/2025 documented in this encounter Plan of Treatment Upcoming Encounters Date Type Department Care Team (Latest Contact Info) Description 01/21/2025 12:00 PM EDT Pt Ed by Nurse Hematology/Oncology [place] [place] [facility]a Loza [address] [place] [phone] Denia, Nurse Hem Onc [facility] [address] [facility] [place] [address] 01/26/2025 9:45 AM EDT Imaging Radiology, [facility] [address] [place] [address] 01/27/2025 11:30 AM EDT Hospital Encounter OR [facility], Operating Room, [facility] - 4th Floor [address] [place] [phone] Rambo Parker MD [address] [place] [address] 01/27/2025 11:30 AM EDT - 01/27/2025 12:29 PM EDT Surgery OR [facility], Operating Room, [facility] - 4th Floor [address] [place] [phone] Rambo Parker MD [address] [place] [address] INSERT TUNNELED CENTRAL VENOUS ACCESS WITH SUBQ PORT 02/10/2025 1:00 PM EDT Office Visit Hematology/Oncology [facility] [place] Maira Loza [address] [place] [phone] Tunde Plunkett MD [address] [place] [address] 02/25/2025 11:00 AM EDT Office Visit [address] [phone] Jay Gonzales MD [address] [place] [phone] Scheduled Procedures Name Priority Associated Diagnoses Date/Ti [...] Advance Directives occurred with: Patient Care Teams Abnormal Psychology Teacher Relationship Specialty Start Date End Date Jay Gonzales MD [address] [place] [phone] PCP - General Family Medicine 09/13/22 documented as of this encounter
--- OUTSIDE RECORDS SUMMARY | 2025-02-12 16:09 | External Medical Summary ---
Author Name Unknown Address Unknown Organization K01:[facility] [address] [facility] [address] Laboratory Report Ordering Provider Test Date Status JEREMIAH CROCKETT 01/21/2025 12:53:14 Final Observation Date Value Abnormality Reference (Units ) Status Hep B surface Ag 01/21/2025 12:53:14 Negative Neg ative Final Performing Location [facility] [address] [facility] [address]
--- OUTSIDE RECORDS SUMMARY | 2025-02-12 16:09 | External Medical Summary ---
Author Name Unknown Address Unknown Organization K09:[facility] [place] [address] Laboratory Report Ordering Provider Test Date Status JEREMIAH CROCKETT 01/21/2025 12:53:14 Final Observation Date Value Abnormality Reference (Units ) Status SYNC LEUKOCYTES IN BLOOD BY AUTOMATED COUNT 01/21/2025 12:53:14 4.71 4.00-10.80 (K/uL) Final Segs 01/21/2025 12:53:14 78.4 Above high normal 40.0-75.0 (%) Final Lymphs % 01/21/2025 12:53:14 8.5 Below low normal 18.0-42.0 (%) Final Monos 01/21/2025 12:53:14 10.6 1.0-11.0 (%) Final Eosinophils 01/21/2025 12:53:14 2.1 0.0-6.0 (%) Final Basos 01/21/2025 12:53:14 0.4 0.0-2.0 (%) Final Absolute Segs 01/21/2025 12:53:14 3.69 1.80-7.70 (K/uL) Final Lymphs, absolute 01/21/2025 12:53:14 0.40 Below low normal 1.00-4.80 (K/ul) Final Monos, Abs 01/21/2025 12:53:14 0.50 0.00-1.10 (K/uL) Final Eos, Abs 01/21/2025 12:53:14 0.10 0.00-0.70 (K/uL) Final Basos, Abs 01/21/2025 12:53:14 0.02 0.00-0.20 (K/uL) Final Performing Location [facility] [place] [address]
--- OUTSIDE RECORDS SUMMARY | 2025-02-12 16:09 | External Medical Summary ---
Author Name Unknown Address Unknown Organization K09:[facility] [place] [address] Laboratory Report Ordering Provider Test Date Status JEREMIAH CROCKETT 01/21/2025 13:02:34 Final Observation Date Value Abnormality Reference (Units ) Status Color of Urine by Auto 01/21/2025 13:02:34 Yellow Light Yellow, Yellow, Dark Yellow Final Clarity, Urine 01/21/2025 13:02:34 Clear Clear Final Glucose [Mass/volume] in Urine by Automated test strip 01/21/2025 13:02:34 Negative Negative (mg/dL) Final Bilirubin.total [Presence] in Urine by Automated test strip 01/21/2025 13:02:34 Negative Negative Final Ketones [Mass/volume] in Urine by Automated test strip 01/21/2025 13:02:34 Negative Negative (mg/dL) Final Specific gravity, Urine 01/21/2025 13:02:34 1.025 1.003-1.030 Final Hemoglobin [Presence] in Urine by Automated test strip 01/21/2025 13:02:34 Negative Negative Final pH, Urine 01/21/2025 13:02:34 5.5 5.0-7.5 (Units) Final Protein [Mass/volume] in Urine by Automated test strip 01/21/2025 13:02:34 Negative Negative (mg/dL) Final Urobilinogen [Mass/volume] in Urine by Automated test strip 01/21/2025 13:02:34 0.2 0.2, 1.0 (mg/dL) Final Nitrite [Presence] in Urine by Automated test strip 01/21/2025 13:02:34 Negative Negative Final Leukocyte esterase [Presence] in Urine by Automated test strip 01/21/2025 13:02:34 Negative Negative Final Annotation Comment 01/21/2025 13:02:34 Final Screen negative - Microscopi c not performed. Performing Location [facility] [place] [address]
--- OUTSIDE RECORDS SUMMARY | 2025-02-12 16:09 | External Medical Summary ---
Author Name Unknown Address Unknown Organization K09:[facility] [place] [address] Laboratory Report Ordering Provider Test Date Status JEREMIAH CROCKETT 01/21/2025 12:53:14 Final Observation Date Value Abnormality Reference (Units ) Status WBC, Total 01/21/2025 12:53:14 4.71 4.00-10.8 0 (K/uL) Final RBC 01/21/2025 12:53:14 3.67 3.85-5.15 (M/uL) Final Hemoglobin 01/21/2025 12:53:14 11.1 Below low normal 12 .0-15.3 (g/dL) Final HCT 01/21/2025 12:53:14 34.5 Below low normal 36. 0-45.2 (%) Final MCV 01/21/2025 12:53:14 94.0 81.5-97.5 (fL) Final MCH 01/21/2025 12:53:14 30.2 27.0-34.0 (pg) Final MCHC 01/21/2025 12:53:14 32.2 32.0-36.0 (g/dL) Final RDW 01/21/2025 12:53:14 17.3 11.5-15.5 (%) Final Platelets 01/21/2025 12:53:14 71 Below low normal 140 -400 (K/uL) Final MPV 01/21/2025 12:53:14 12.2 6.6-11.1 ( fL) Final Performing Location [facility] [place] [address]
--- OUTSIDE RECORDS SUMMARY | 2025-02-12 16:09 | External Medical Summary | Summary of Care ---
Author Name Unknown Organization [facility] Address [address] [place] [address] Phone [phone] Care Team Providers Care Land Surveying Survey Worker Name Role Phone Jay Gonzales MD Primary Care Provi [facility] Reason for Visit * Reason Comments Outpatient Testing Encounter Details Date Type Department Care Team (Late st Contact Info) Description 01/21/2025 1:00 PM EDT Laboratory Laboratory [facility] [address] [place] [phone] [facility] [address] [place] [address] Hepatocellular carcinoma (HCC); Metastasis to bone (HCC); Encounter for long-term (current) use of medications; Encounter for screening for other viral diseases Allergies No known active allergiesdocumented as of this encounter (statuses as of 01/21/2025) Medications Multiple Vitamins-Minera ls (CENTRUM ADULTS) TABS [...] NOT CUT, CRUSH OR CHEW (TAKE WITH [id number] DAILY) 90 Capsule 1 5 Active Gabapentin [...] suspected opioid overdose. Seek immediate medical attention. https://www.you tube.com/watch? [email or web address] 2 Each 3 5 Active Morphine Sulfate [...] as of this encounter (statuses as of 01/21/2025) Active Problems Problem Noted Date Diagnosed Date [...] as of this encounter (statuses as of 01/21/2025) Resolved Problems Problem Noted Date Diagnosed Date Resolved Date Acute hypoxic respiratory failure 01/06/2025 01/07/2025 Cholelithiasis 01/06/2025 01/13/2025 OTHER 11/15/2009 08/20/2018 Overview (11/20/2009): Genotype 1a Chronic hepatitis C 09/21/2009 08/20/20 18 documented as of this encounter (statuses as of 01/21/2025) Immunizations Name Administration Dates Next Due TDAP, [...] Description 01/26/2025 9:45 AM EDT Imaging Radiology, [address] [place] [id number] 01/27/2025 11:30 AM EDT Hospital Encounter OR [facility], Operating Room, [facility] - 4th Floor [address] [phone] Rambo Parker MD [facility] [place] [address] 01/27/2025 11:30 AM EDT - 01/27/2025 12:29 PM EDT Surgery OR [facility], Operating Room, [facility] - 4th Floor [address] [place] [phone] Rambo Parker MD [facility] [place] [address] INSERT TUNNELED CENTRAL VENOUS ACCESS WITH SUBQ PORT 02/02/2025 11:00 AM EDT Hem/Onc Treatment Hematology/Oncology Treatment, [place] [address] [place] [address] [place], Chair 3 Hem Onc [facility] [address] [place] [address] 02/10/2025 1:00 PM EDT Office Visit Hematology/Oncology [facility] [place] [address] [place] [phone] Tunde Plunkett MD 200 [facility] [place], [place] [address] 02/25/2025 11:00 AM EDT Office Visit [address] [phone] Jay Gonzales MD [address] [place] [phone] Pending Results Name Type Priority Associated Diagnoses Date /Time TSH WITH FREE T4 IF INDICATED Lab STAT Hepatocellular carcinoma (HCC) Metastasis to bone (HCC) Encounter for long-term (current) use of medications 01/21/2025 12:53 PM EDT ALPHA-FETOPROTEIN TUMOR MARKER Lab STAT Hepatocellular carcinoma (HCC) Metastasis to bone (HCC) 01/21/2025 12:53 PM EDT HEPATITIS B SURFACE ANTIBODY Lab STAT Hepatocellular carcinoma (HCC) Metastasis to bone (HCC) Encounter for screening for other viral diseases 01/21/2025 12:53 PM EDT HEPATITIS B SURFACE ANTIGEN Lab STAT Hepatocellular carcinoma (HCC) Metastasis to bone (HCC) Encounter for screening for other viral diseases 01/21/2025 12:53 PM EDT HEPATITIS B CORE ANTIBODIES IGG AND IGM Lab STAT Hepatocellular carcinoma (HCC) Metastasis to bone (HCC) Encounter for screening for other viral diseases 01/21/2025 12:53 PM EDT Scheduled Procedures Name Priority Associated [...] Procedure Name Priority Date/Time Associated Diagnosis Comments URINALYSIS, REFLEX TO MICROSCOPIC STAT 01/21/2025 1:02 PM EDT Hepatocellular carcinoma (HCC) Metastasis to bone (HCC) DIFFERENTIAL, AUTOMATED STAT 01/21/2025 12:53 PM EDT Hepatocellular carcinoma (HCC) Metastasis to bone (HCC) COMPREHENSIVE METABOLIC PANEL STAT 01/21/2025 12:53 PM EDT Hepatocellular carcinoma (HCC) Metastasis to bone (HCC) CBC STAT 01/21/2025 12:53 PM EDT Hepatocellular carcinoma (HCC) Metastasis to bone (HCC) CBC STAT 01/21/2025 12:53 PM EDT Hepatocellular carcinoma (HCC) Metastasis to bone (HCC) DIFFERENTIAL, TECHNOLOGIST REVIEW Routine 01/21/2025 12:53 PM EDT Hepatocellular carcinoma (HCC) Metastasis to bone (HCC) documented in this encounter Results * URINALYSIS, REFLEX TO MICROSCOPIC (01/21/2025 1:02 PM EDT) Color, Urine Yellow Light Yellow, Yellow, Dark Yellow 01/21/2025 1:12 PM EDT [facility] 56-02 Clarity, Urine Clear Clear 01/21/2025 1:12 PM EDT [address] Glucose, Urine Negative Negative mg/dL 01/21/2025 1:12 PM EDT [address] Bilirubin, Urine Negative Negative 01/21/2025 1:12 PM EDT [address] Ketone, Urine Negative Negative mg/dL 01/21/2025 1:12 PM EDT [address] Specific [place], Urine 1.025 1.003 - 1.030 01/21/2025 1:12 PM EDT [address] Blood, Urine Negative Negative 01/21/2025 1:12 PM EDT [address] pH, Urine 5.5 5.0 - 7.5 Units 01/21/2025 1:12 PM EDT [address] Protein, Urine Negative Negative mg/dL 01/21/2025 1:12 PM EDT [address] Urobilinogen, Urine 0.2 0.2, 1.0 mg/dL 01/21/2025 1:12 PM EDT [address] Nitrite, Urine Negative Negative 01/21/2025 1:12 PM EDT [address] Esterase, Urine Negative Negative 1:12 PM EDT [address] Comment, Urine 01/21/2025 1:12 PM EDT [address] Comment:Screen negative - Mi croscopic not performed. Urine Non-blood Collection / Unknown 01/21/2025 1:02 PM EDT 01/21/2025 1:02 PM EDT us Tunde Plunkett MD LAB URINE ORDERABLES Final Res ult [address] [place] [address] * DIFFERENTIAL, TECHNOLOGIST REVIEW (01/21/2025 12:53 PM EDT) nRs 01/21/2025 1:07 PM EDT [place] [id number] Blood Venous blood specimen / Unknown Venipuncture / Unknown 01/21/2025 12:53 PM EDT 01/21/2025 12:53 PM EDT us Tunde Plunkett MD LAB BLOOD ORDERABLES Final Res ult [facility] [address] [place] [address] * (ABNORMAL) DIFFERENTIAL, AUTOMATED (01/21/2025 12:53 PM EDT) WBC 4.71 4.00 - 10.80 K/uL 01/21/2025 1:07 PM EDT [facility] 56-02 Neutrophils % 78.4(H) 40.0 - 75.0 % 01/21/2025 1:07 PM EDT [facility] 56 Lymphocytes % 8.5(L) 18.0 - 42.0 % 01/21/2025 1:07 PM EDT [facility] 56-02 Monocytes % 10.6 1.0 - 11.0 % 01/21/2025 1:07 PM EDT [facility] 56-02 Eosinophils % 2.1 0.0 - 6.0 % 01/21/2025 1:07 PM EDT [facility] 56-02 Basophils % 0.4 0.0 - 2.0 % 01/21/2025 1:07 PM EDT [facility] 56-02 Absolute Neutrophils 3.69 1.80 - 7.70 K/uL 01/21/2025 1:07 PM EDT [facility] 56-02 Absolute Lymphocytes 0.40(L) 1.00 - 4.80 K/ul 01/21/2025 1:07 PM EDT [facility] 56-02 Absolute Monocytes 0.50 0.00 - 1.10 K/uL 01/21/2025 1:07 PM EDT [facility] 56-02 Absolute Eosinophils 0.10 0.00 - 0.70 K/uL 01/21/2025 1:07 PM EDT [facility] 56-02 Absolute Basophils 0.02 0.00 - 0.20 K/uL 01/21/2025 1:07 PM EDT [facility] 56-02 Blood Venous blood specimen / Unknown Venipuncture / Unknown 01/21/2025 12:53 PM EDT 01/21/2025 12:53 PM EDT Tunde Plunkett MD LAB BLOOD ORDERABLES Final Res ult [facility] 56- [address] [place] [address] * (ABNORMAL) CBC (01/21/2025 12:53 PM EDT) Pathologist [facility] WBC 4.71 4.00 - 10.80 K/uL 01/21/2025 1:07 PM EDT [facility] 56 RBC 3.67 3.85 - 5.15 M/uL 01/21/2025 1:07 PM EDT [facility] 56 HGB 11.1(L) 12.0 - 15.3 g/dL 01/21/2025 1:07 PM EDT [facility] 56 HCT 34.5(L) 36.0 - 45.2 % 01/21/2025 1:07 PM EDT [facility] 56 MCV 94.0 81.5 - 97.5 fL 01/21/2025 1:07 PM EDT [facility] 56 MCH 30.2 27.0 - 34.0 pg 01/21/2025 1:07 PM EDT [facility] 56 MCHC 32.2 32.0 - 36.0 g/dL 01/21/2025 1:07 PM EDT [facility] 56 RDW 17.3 11.5 - 15.5 % 01/21/2025 1:07 PM EDT [facility] 56 PLT 71(L) 140 - 400 K/uL 01/21/2025 1:07 PM EDT [facility] 56- MPV 12.2 6.6 - 11.1 fL 01/21/2025 1:07 PM EDT [facility] 56 Blood Venous blood specimen / Unknown Venipuncture / Unknown 01/21/2025 12:53 PM EDT 01/21/2025 12:53 PM EDT Tunde Plunkett MD LAB BLOOD ORDERABLES Final Res ult [place] [address] [place] [address] * (ABNORMAL) COMPREHENSIVE METABOLIC PANEL (01/21/2025 12:53 PM EDT) BUN 8 6 - 20 mg/dL 01/21/2025 1:16 PM EDT [address] CREATININE 0.7 0.5 - 1.0 mg/dL 01/21/2025 1:16 PM EDT [address] EGFR >90 >=60 mL/min 01/21/2025 1:16 PM EDT [facility] Comment:eGFR is calculated b ased on the CKD-EPI 2020 equation. SODIUM 141 135 - 146 mmol/L 01/21/2025 1:16 PM EDT [facility] 56 POTASSIUM 3.5 3.5 - 5.1 mmol/L 01/21/2025 1:16 PM EDT [facility] 56 CHLORIDE 104 98 - 107 mmol/L 01/21/2025 1:16 PM EDT [facility] 56 CO2 27 22 - 32 mmol/L 01/21/2025 1:16 PM EDT [facility] 56 ANION GAP 10 7 - 15 mmol/L 01/21/2025 1:16 PM EDT [facility] 56 GLUCOSE 122(H) 70 - 120 mg/dL 01/21/2025 1:16 PM EDT [facility] 56 Albumin 3.7(L) 3.8 - 5.0 g/dL 01/21/2025 1:16 PM EDT [facility] 56 AST 83(H) 10 - 35 U/L 01/21/2025 1:16 PM EDT [facility] 56 Alkaline Phosphatase 560(H) 35 - 130 U/L 01/21/2025 1:16 PM EDT [facility] 56 Bilirubin, Total 1.1 <=1.2 mg/dL 01/21/2025 1:16 PM EDT [facility] 56 CALCIUM 9.8 8.4 - 10.2 mg/dL 01/21/2025 1:16 PM EDT [facility] 56- Protein 7.1 6.0 - 8.3 g/dL 01/21/2025 1:16 PM EDT [facility] 56- ALT 30 10 - 35 U/L 01/21/2025 1:16 PM EDT [facility] 56 Blood Venous blood specimen / Unknown Venipuncture / Unknown 01/21/2025 12:53 PM EDT 01/21/2025 12:53 PM EDT us Tunde Plunkett MD LAB BLOOD ORDERABLES Final Res ult [facility] [address] [place] [address] documented in this encounter Visit Diagnoses Diagnosis [...] for long-term (current) use of other medications Encounter for screening for other viral diseases [...] Advance Directives occurred with: Patient Care Teams Land Surveying Survey Worker Relationship Specialty Start Date End Date Jay Gonzales MD [address] [place] [phone] PCP - General Family Medicine 11/25/22 documented as of this encounter
--- OUTSIDE RECORDS SUMMARY | 2025-02-12 16:09 | External Medical Summary ---
Author Name Unknown Address Unknown Organization K01:LABORATORY [place] [address] [place] [address] Laboratory Report Ordering Provider Test Date Status JEREMIAH CROCKETT 01/21/2025 12:53:14 Final Observation Date Value Abnormality Reference (Units) Status Hepatitis B virus surface Ab [Units/volume] in Serum or Plasma by Immunoassay 01/21/2025 12:53:14 <3.5 (mIU/mL) Final Hepatitis B virus surface Ab [Presence] in Serum by Immunoassay 01/21/2025 12:53:14 Negative Final HEPATITIS B SURFACE ANTIBODY, INTERPRETATION 01/21/2025 12:53:14 NOT immune to Hepatitis B Virus Final POSITIVE: >=11.5 mIU/mL
INDETERMINATE: 8.5-<11.5 mIU/mL
NEGATIVE: <8.5 mIU/mL Performing Location LABORATORY [facility] - [facility] [address] [facility] [address] [place] [address]
--- OUTSIDE RECORDS SUMMARY | 2025-02-12 16:09 | External Medical Summary ---
Author Name Unknown Address Unknown Organization K01:LABORATORY [facility] - [address] [facility] [address] Laboratory Report Ordering Provider Test Date Status JEREMIAH CROCKETT 01/21/2025 12:53:14 Final Observation Date Value Abnormality Reference (Units ) Status TSH 01/21/2025 12:53:14 2.52 0.27-4.20 (uIU/mL) Final Performing Location LABORATORY [facility] - [address] [facility] [address]
--- OUTSIDE RECORDS SUMMARY | 2025-02-12 16:09 | External Medical Summary | Summary of Care ---
Author Name Unknown Organization [facility] Address [address] [place] [address] Phone [phone] Care Team Providers Care Welder Assembler Name Role Phone Jay Gonzales MD Primary Care Provi syl Reason for Visit * Reason Onset Date Comments Precert Future 01/19/2025 kat Espinosa Encounter Details Date Type Department Care Team (Late st Contact Info) Description 01/19/2025 Telephone Hematology/Oncology Treatment, [place] [address] [place] [address] Tunde Plunkett MD [address] [place] [address] Precert Future (Tecisabel wattrabev) Allergies No known [...] NOT CUT, CRUSH OR CHEW (TAKE WITH [id number] DAILY) 90 Capsule 1 5 Active Gabapentin [...] suspected opioid overdose. Seek immediate medical attention. https://www.[employer].com/watch? v=[email or web address] 2 Each 3 5 Active Morphine Sulfate [...] to schedule patient for lab appointment @ [place] "CBCD,CMP" theday before her treatment on 02/01. [...] do labs day prior to treatment in [place]. Pt seeing Rad Onc on 01/26 to discuss treatment to [place]. Dr. Plunkett- ok to use labs from today for first treatment? * Telephone Encounter - Samantha Strange RN - 01/19/2025 4:50 PM EDT Referral entered. * Telephone Encounter - Samantha Strange RN - 01/19/2025 4:25 PM EDT Order received for tecentriqisabelrabev. [place] plan built and routed for signature. Waiting for auth. Consent signed 01/19/25. Nurse education 01/21/25. Patient will need hep B labs- Dr Plunkett would also like 1x AFP. PET 01/26/25. Mediport ordered- not yet scheduled (can start prior to mediport placement). Patient is seeing [facility] rad/onc next week for radiation to skull. Per Dr Plunkett, david to start before radiation is complete/ while patient is still receiving radiation. documented in this encounter Plan of Treatment Upcoming Encounters Date Type Department Care Team (Latest Contact Info) Description 01/26/2025 9:45 AM EDT Imaging Radiology, [facility] [address] [place] [id number] 01/27/2025 11:30 AM EDT Hospital Encounter OR [facility], Operating Room, [facility] - 4th Floor [address] [place] [phone] Rambo Parker MD [address] [place] [address] 01/27/2025 11:30 AM EDT - 01/27/2025 12:29 PM EDT Surgery OR [facility], Operating Room, [facility] - 4th Floor [address] [place] [phone] Rambo Parker MD [address] [place] [address] INSERT TUNNELED CENTRAL VENOUS ACCESS WITH SUBQ PORT 02/02/2025 11:00 AM EDT Hem/Onc Treatment Hematology/Oncology Treatment, [place] [address] [place] [phone] Denia, Chair 3 Hem Onc [facility] [address] [facility] [place] [address] 02/10/2025 1:00 PM EDT Office Visit Hematology/Oncology [facility] [place] [address] [place] [phone] Tunde Plunkett MD [address] [place] [address] 02/25/2025 11:00 AM EDT Office Visit [address] [phone] Jay Gonzales MD [address] [place] [phone] Pending Results Name Type Priority Associated Diagnoses Date /Time ALPHA-FETOPROTEIN TUMOR MARKER Lab STAT Hepatocellular carcinoma [...] viral diseases 01/21/2025 12:53 PM EDT Scheduled Orders Name Type Priority Associated Diagnoses Orde r Schedule ALPHA-FETOPROTEIN TUMOR MARKER Lab STAT Hepatocellular carcinoma (HCC) Metastasis to bone (HCC) Expected: 01/19/2025, Expires: 01/19/2026 HEPATITIS B SURFACE ANTIBODY Lab STAT Hepatocellular carcinoma (HCC) Metastasis to bone (HCC) Encounter for screening for other viral diseases Expected: 01/19/2025 (Approximate), Expires: 01/19/2026 HEPATITIS B SURFACE ANTIGEN Lab STAT Hepatocellular carcinoma (HCC) Metastasis to bone (HCC) Encounter for screening for other viral diseases Expected: 01/19/2025 (Approximate), Expires: 01/19/2026 HEPATITIS B CORE ANTIBODIES IGG AND IGM Lab STAT Hepatocellular carcinoma (HCC) Metastasis to bone (HCC) Encounter for screening for other viral diseases Expected: 01/19/2025 (Approximate), Expires: 01/19/2026 Scheduled Procedures Name Priority Associated Diagnoses Date/Ti [...] Advance Directives occurred with: Patient Care Teams Welder Assembler Relationship Specialty Start Date End Date Jay Gonzales MD [address] [place] [address] [place] [phone] PCP - General Family Medicine 09/13/22 documented as of this encounter
--- OUTSIDE RECORDS SUMMARY | 2025-02-12 16:09 | External Medical Summary | Summary of Care ---
Author Name Unknown Organization [facility] Address [address] [place] [address] Phone [phone] Care Team Providers Care Near East Archeology Professor Name Role Phone Jay Gonzales MD Primary Care Provi syl Reason for Visit * Reason Onset Date Comments Precert Future 01/19/2025 kat Espinosa Encounter Details Date Type Department Care Team (Late st Contact Info) Description 01/19/2025 Telephone Hematology/Oncology Treatment, [place] [address] [place] [address] Tunde Plunkett MD [address] [place] [address] Precert Future (Tecisabel wattrabev) Allergies No known [...] NOT CUT, CRUSH OR CHEW (TAKE WITH [id number] DAILY) 90 Capsule 1 5 Active Gabapentin [...] suspected opioid overdose. Seek immediate medical attention. [email or web address]/watch? v=[email or web address] 2 Each 3 5 Active Morphine Sulfate [...] to schedule patient for lab appointment @ [place] "CBCD,CMP" theday before her treatment on 02/01. [...] do labs day prior to treatment in [place]. Pt seeing Rad Onc on 01/26 to discuss treatment to [place]. Dr. Plunkett- ok to use labs from today for first treatment? * Telephone Encounter - Samantha Strange RN - 01/19/2025 4:50 PM EDT Referral entered. * Telephone Encounter - Samantha Strange RN - 01/19/2025 4:25 PM EDT Order received for tecentriqisabelrabev. [place] plan built and routed for signature. Waiting for auth. Consent signed 01/19/25. Nurse education 01/21/25. Patient will need hep B labs- Dr Plunkett would also like 1x AFP. PET 01/26/25. Mediport ordered- not yet scheduled (can start prior to mediport placement). Patient is seeing [facility] rad/onc next week for radiation to skull. Per Dr Plunkett, david to start before radiation is complete/ while patient is still receiving radiation. documented in this encounter Plan of Treatment Upcoming Encounters Date Type Department Care Team (Latest Contact Info) Description 01/26/2025 9:45 AM EDT Imaging Radiology, [facility] [address] [place] [id number] 01/27/2025 11:30 AM EDT Hospital Encounter OR [facility], Operating Room, [facility] - 4th Floor [address] [place] [phone] Rambo Parker MD [address] [place] [address] 01/27/2025 11:30 AM EDT - 01/27/2025 12:29 PM EDT Surgery OR [facility], Operating Room, [facility] - 4th Floor [address] [place] [address] Rambo Parker MD 400 [facility] [place] [address] INSERT TUNNELED CENTRAL VENOUS ACCESS WITH SUBQ PORT 02/02/2025 11:00 AM EDT Hem/Onc Treatment Hematology/Oncology Treatment, [place] [address] [place] [address] Denia, Chair 3 Hem Onc [address] [place] [address] 02/10/2025 1:00 PM EDT Office Visit Hematology/Oncology [facility] [place] [address] [facility] [place] [phone] Tunde Plunkett MD 200 [facility] [place] [address] 02/25/2025 11:00 AM EDT Office Visit [address] [phone] Jay Gonzales MD [address] [place] [phone] Scheduled Procedures Name Priority Associated Diagnoses [...] AND IGM (01/21/2025 12:53 PM EDT) Pathologist [facility] Hepatitis B Core Antibodies IgG and IgM Negative Negative 01/21/2025 9:16 PM EDT LABORATORY [facility] Blood Venous blood specimen / Unknown Venipuncture / Unknown 01/21/2025 12:53 PM EDT 01/21/2025 12:53 PM EDT Tunde Plunkett MD LAB BLOOD ORDERABLES Final Res ult Performing Organization Address City/[facility]/ZIP Co de Phone Number LABORATORY [address] [address] * HEPATITIS B SURFACE ANTIGEN (01/21/2025 12:53 PM EDT) Pathologist [facility] Hepatitis B Surface Antigen Negative Negative 01/21/2025 9:16 PM EDT LABORATORY [facility] Blood Venous blood specimen / Unknown Venipuncture / Unknown 01/21/2025 12:53 PM EDT 01/21/2025 12:53 PM EDT Tunde Plunkett MD LAB BLOOD ORDERABLES Final Res ult LABORATORY [place] [address] [place] [address] * HEPATITIS B SURFACE ANTIBODY (01/21/2025 12:53 PM EDT) Pathologist [facility] Hepatitis B Surface Antibody, Quantitative <3.5 mIU/mL 01/21/2025 9:16 PM EDT LABORATORY [facility] Hepatitis B Surface Antibody, Qualitative Negative 01/21/2025 9:16 PM EDT LABORATORY [facility] Hepatitis B Surface Antibody, Interpretation NOT immune to Hepatitis B Virus 01/21/2025 9:16 PM EDT LABORATORY [facility] Comment: POSITIVE: >=11.5 mIU/mL INDETERMINATE: 8.5-<11.5 mIU/mL NEGATIVE: <8.5 mIU/mL Blood Venous blood specimen / Unknown Venipuncture / Unknown 01/21/2025 12:53 PM EDT 01/21/2025 12:53 PM EDT Tunde Plunkett MD LAB BLOOD ORDERABLES Final Res ult Performing Organization Address City/[facility]/ZIP Co de Phone Number LABORATORY [facility] [address] [place] [address] * (ABNORMAL) ALPHA-FETOPROTEIN TUMOR MARKER (01/21/2025 12:53 PM EDT) Alpha-Fetoprot ein Tumor Marker 11,402.0(H ) 0.0 - 8.3 ng/mL 01/21/2025 9:48 PM EDT LABORATORY [facility] Blood Venous blood specimen / Unknown Venipuncture / Unknown 01/21/2025 12:53 PM EDT 01/21/2025 12:53 PM EDT Tunde Plunkett MD LAB BLOOD ORDERABLES Final Res ult LABORATORY [facility] [address] [place] [address] documented in this encounter Visit Diagnoses Diagnosis [...] Advance Directives occurred with: Patient Care Teams Near East Archeology Professor Relationship Specialty Start Date End Date Jay Gonzales MD [address] [place] [phone] PCP - General Family Medicine 09/13/22 documented as of this encounter
--- OUTSIDE RECORDS SUMMARY | 2025-02-12 16:09 | External Medical Summary | Summary of Care ---
Author Name Unknown Organization [facility] Address [address] [place] [address] Phone [phone] Care Team Providers Care Acoustic Intelligence Specialist Name Role Phone Jay Gonzales MD Primary Care Provi syl Reason for Visit * Reason Comments Education Tecentriq/Zirabev Encounter Details Date Type Department Care Team (Late st Contact Info) Description 01/21/2025 12:00 PM EDT Pt Ed by Nurse Hematology/Oncology [facility] [place] [address] [place] [address] Nurse Denia Hem Onc [facility] [address] [facility] [place] [address] Allergies No known active allergiesdocumented as of [...] NOT CUT, CRUSH OR CHEW (TAKE WITH [phone] DAILY) 90 Capsule 1 5 Active Gabapentin [...] suspected opioid overdose. Seek immediate medical attention. [email or web address]/[email or web address]? [email or web address] 2 Each 3 5 Active Morphine Sulfate [...] Noni Molina RN documented in this encounter Progress Notes * Audi Dale RN - 01/21/2025 12:48 PM EDT Education completed. documented in this encounter Plan of Treatment Upcoming Encounters Date Type Department Care Team (Latest Contact Info) Description 01/26/2025 9:45 AM EDT Imaging Radiology, [address] [place] [address] 01/27/2025 11:30 AM EDT Hospital Encounter OR [facility], Operating Room, [facility] - 4th Floor [address] [place] [phone] Rambo Parker MD [address] [place] [address] 01/27/2025 11:30 AM EDT - 01/27/2025 12:29 PM EDT Surgery OR [facility], Operating Room, [facility] - 4th Floor [address] [place] [phone] Rambo Parker MD 400 [facility] [place] [address] INSERT TUNNELED CENTRAL VENOUS ACCESS WITH SUBQ PORT 02/02/2025 11:00 AM EDT Hem/Onc Treatment Hematology/Oncology Treatment, [place] [address] [place] [address] Denia, Chair 3 Hem Onc Scene 200 [facility] [place] [address] 02/10/2025 1:00 PM EDT Office Visit Hematology/Oncology [facility] [place] 200 [facility] [place] [address] Tunde Plunkett MD 200 [facility] [place] [address] 02/25/2025 11:00 AM EDT Office Visit [facility] [address] [place] [address] Jay Gonzales MD [address] [place] [phone] Scheduled Procedures Name Priority Associated Diagnoses [...] Advance Directives occurred with: Patient Care Teams Acoustic Intelligence Specialist Relationship Specialty Start Date End Date Jay Gonzales MD [address] [place] [phone] PCP - General Family Medicine 09/13/22 documented as of this encounter
--- OUTSIDE RECORDS SUMMARY | 2025-02-12 16:09 | External Medical Summary | Summary of Care ---
Author Name Unknown Organization [facility] Address [address] [place] [address] Phone [phone] Care Team Providers Care Soft Metals Engraver Hand Name Role Phone Jay Gonzales MD Primary Care Provi [facility] Reason for Visit * Reason Comments Outpatient Testing Encounter Details Date Type Department Care Team (Late st Contact Info) Description 01/21/2025 1:00 PM EDT Laboratory Laboratory [facility] [address] [place] [phone] [facility] 200 [place] [address] Hepatocellular carcinoma (HCC); Metastasis to bone (HCC); [...] NOT CUT, CRUSH OR CHEW (TAKE WITH [id number] DAILY) 90 Capsule 1 5 Active Gabapentin [...] overdose. Seek immediate medical attention. https://www.you tube.com/watch? [email or web address] 2 Each 3 5 Active Morphine Sulfate [...] Assessment Author Yes 01/06/2025 6:09 PM EDT oNni Molina RN * Because of a physical, [...] Description 01/26/2025 9:45 AM EDT Imaging Radiology, [address] [place] [phone] 01/27/2025 11:30 AM EDT Hospital Encounter OR [facility], Operating Room, [facility] - 4th Floor [address] [place] [phone] Rambo Parker MD [facility] [place] [address] 01/27/2025 11:30 AM EDT - 01/27/2025 12:29 PM EDT Surgery OR [facility], Operating Room, [facility] - 4th Floor [address] [place] [phone] Rambo Parker MD [facility] [place] [address] INSERT TUNNELED CENTRAL VENOUS ACCESS WITH SUBQ PORT 02/02/2025 11:00 AM EDT Hem/Onc Treatment Hematology/Oncology Treatment, [place] [address] [place] [address] Park, Chair 3 Hem Onc [facility] [address] [place] [address] 02/10/2025 1:00 PM EDT Office Visit Hematology/Oncology [facility] [place] [address] [place] [phone] Tunde Plunkett MD 200 [facility] [place], [place] [address] 02/25/2025 11:00 AM EDT Office Visit [address] [phone] Jay Gonzales MD [address] [place] [phone] Pending Results Name Type Priority Associated [...] Yellow, Dark Yellow 01/21/2025 1:12 PM EDT [facility] 56-02 Clarity, Urine Clear Clear 01/21/2025 1:[address]T [address] Glucose, Urine Negative Negative mg/dL 01/21/2025 1:12 PM EDT [address] Bilirubin, Urine Negative Negative 01/21/2025 1:12 PM EDT [address] Ketone, Urine Negative Negative mg/dL 01/21/2025 1:[address]T [address] Specific [place], Urine 1.025 1.003 - 1.030 01/21/2025 1:12 PM EDT [address] Blood, Urine Negative Negative 01/21/2025 1:12 [address]T [address] pH, Urine 5.5 5.0 - 7.5 Units 01/21/2025 1:12 PM EDT [address] Protein, Urine Negative Negative mg/dL 01/21/2025 1:12 [address]T [address] Urobilinogen, Urine 0.2 0.2, 1.0 mg/dL 01/21/2025 1:12 PM EDT [address] Nitrite, Urine Negative Negative 01/21/2025 1:12 [address]T [address] Esterase, Urine Negative Negative 1:12 PM EDT [address] Comment, Urine 01/21/2025 1:12 PM EDT [address] Comment:Screen negative - Mi croscopic not performed. Urine Non-blood Collection / Unknown 01/21/2025 1:02 PM EDT 01/21/2025 1:02 PM EDT us Tunde Plunkett MD LAB URINE ORDERABLES Final Res ult [address] [place] [address] * DIFFERENTIAL, TECHNOLOGIST REVIEW (01/21/2025 12:53 PM EDT) nRs 01/21/2025 1:07 PM EDT [place] [address] Blood Venous blood specimen / Unknown Venipuncture / Unknown 01/21/2025 12:53 PM EDT 01/21/2025 12:53 PM EDT us Tunde Plunkett MD LAB BLOOD ORDERABLES Final Res ult [facility] [address] [place] [address] * (ABNORMAL) DIFFERENTIAL, AUTOMATED (01/21/2025 12:53 PM EDT) WBC 4.71 4.00 - 10.80 K/uL 01/21/2025 1:07 PM EDT [facility] 56-02 Neutrophils % 78.4(H) 40.0 - 75.0 % 01/21/2025 1:07 PM EDT [facility] 56 Lymphocytes % 8.5(L) 18.0 - 42.0 % 01/21/2025 1:07 PM EDT [facility] 56-02 Monocytes % 10.6 1.0 - 11.0 % 01/21/2025 1:07 PM EDT [facility] 56-02 Eosinophils % 2.1 0.0 - 6.0 % 01/21/2025 1:07 PM EDT [facility] 56-02 Basophils % 0.4 0.0 - 2.0 % 01/21/2025 1:07 PM EDT [facility] 56-02 Absolute Neutrophils 3.69 1.80 - 7.70 K/uL 01/21/2025 1:07 PM EDT [facility] 56-02 Absolute Lymphocytes 0.40(L) 1.00 - 4.80 K/ul 01/21/2025 1:07 PM EDT [facility] 56-02 Absolute Monocytes 0.50 0.00 - 1.10 K/uL 01/21/2025 1:07 PM EDT [facility] 56-02 Absolute Eosinophils 0.10 0.00 - 0.70 K/uL 01/21/2025 1:07 PM EDT [facility] 56-02 Absolute Basophils 0.02 0.00 - 0.20 K/uL 01/21/2025 1:07 PM EDT [facility] 56-02 Blood Venous blood specimen / Unknown Venipuncture / Unknown 01/21/2025 12:53 PM EDT 01/21/2025 12:53 PM EDT Tunde Plunkett MD LAB BLOOD ORDERABLES Final Res ult [facility] 56- [address] [place] [address] * (ABNORMAL) CBC (01/21/2025 12:53 PM EDT) Pathologist [facility] WBC 4.71 4.00 - 10.80 K/uL 01/21/2025 1:07 PM EDT [facility] 56 RBC 3.67 3.85 - 5.15 M/uL 01/21/2025 1:07 PM EDT [facility] 56 HGB 11.1(L) 12.0 - 15.3 g/dL 01/21/2025 1:07 PM EDT [facility] 56 HCT 34.5(L) 36.0 - 45.2 % 01/21/2025 1:07 PM EDT [facility] 56 MCV 94.0 81.5 - 97.5 fL 01/21/2025 1:07 PM EDT [facility] 56 MCH 30.2 27.0 - 34.0 pg 01/21/2025 1:07 PM EDT [facility] 56 MCHC 32.2 32.0 - 36.0 g/dL 01/21/2025 1:07 PM EDT [facility] 56 RDW 17.3 11.5 - 15.5 % 01/21/2025 1:07 PM EDT [facility] 56 PLT 71(L) 140 - 400 K/uL 01/21/2025 1:07 PM EDT [facility] 56- MPV 12.2 6.6 - 11.1 fL 01/21/2025 1:07 PM EDT [facility] 56 Blood Venous blood specimen / Unknown Venipuncture / Unknown 01/21/2025 12:53 PM EDT 01/21/2025 12:53 PM EDT Tunde Plunkett MD LAB BLOOD ORDERABLES Final Res ult [place] [address] [place] [address] * (ABNORMAL) COMPREHENSIVE METABOLIC PANEL (01/21/2025 12:53 PM EDT) BUN 8 6 - 20 mg/dL 01/21/2025 1:[address]T [address] CREATININE 0.7 0.5 - 1.0 mg/dL 01/21/2025 1:[address] EGFR >90 >=60 mL/min 01/21/2025 1:16 PM EDT [facility] Comment:eGFR is calculated b ased on the CKD-EPI 2020 equation. SODIUM 141 135 - 146 mmol/L 01/21/2025 1:16 PM EDT [facility] 56 POTASSIUM 3.5 3.5 - 5.1 mmol/L 01/21/2025 1:16 PM EDT [facility] 56 CHLORIDE 104 98 - 107 mmol/L 01/21/2025 1:16 PM EDT [facility] 56 CO2 27 22 - 32 mmol/L 01/21/2025 1:16 PM EDT [facility] 56 ANION GAP 10 7 - 15 mmol/L 01/21/2025 1:16 PM EDT [facility] 56 GLUCOSE 122(H) 70 - 120 mg/dL 01/21/2025 1:16 PM EDT [facility] 56 Albumin 3.7(L) 3.8 - 5.0 g/dL 01/21/2025 1:16 PM EDT [facility] 56 AST 83(H) 10 - 35 U/L 01/21/2025 1:16 PM EDT [facility] 56 Alkaline Phosphatase 560(H) 35 - 130 U/L 01/21/2025 1:16 PM EDT [facility] 56 Bilirubin, Total 1.1 <=1.2 mg/dL 01/21/2025 1:16 PM EDT [facility] 56 CALCIUM 9.8 8.4 - 10.2 mg/dL 01/21/2025 1:16 PM EDT [facility] 56- Protein 7.1 6.0 - 8.3 g/dL 01/21/2025 1:16 PM EDT [facility] 56- ALT 30 10 - 35 U/L 01/21/2025 1:16 PM EDT [facility] 56 Blood Venous blood specimen / Unknown Venipuncture / Unknown 01/21/2025 12:53 PM EDT 01/21/2025 12:53 PM EDT us Tunde Plunkett MD LAB BLOOD ORDERABLES Final Res ult [facility] [address] [place] [address] documented in this encounter Visit [...] Advance Directives occurred with: Patient Care Teams Soft Metals Engraver Hand Relationship Specialty Start Date End Date Jay Gonzales MD [address] [place] [phone] PCP - General Family Medicine 11/25/22 documented as of this encounter
--- OUTSIDE RECORDS SUMMARY | 2025-02-12 16:09 | External Medical Summary | Summary of Care ---
Author Name Unknown Organization [facility] Address [address] [place] [address] Phone [phone] Care Team Providers Care Enterprise Systems Manager Name Role Phone Jay Gonzales MD Primary Care Provi syl Reason for Visit * Reason Onset Date Comments Precert Future 01/19/2025 kat Espinosa Encounter Details Date Type Department Care Team (Late st Contact Info) Description 01/19/2025 Telephone Hematology/Oncology Treatment, [place] [address] [place] [address] Tunde Plunkett MD 200 [place] [address] Precert Future (Tecisabel wattrabev) Allergies No known [...] NOT CUT, CRUSH OR CHEW (TAKE WITH [id number] DAILY) 90 Capsule 1 5 Active Gabapentin [...] suspected opioid overdose. Seek immediate medical attention. https://www.incrediblue.com/watch? [email or web address] 2 Each 3 5 Active Morphine Sulfate [...] to schedule patient for lab appointment @ [place] "CBCD,CMP" theday before her treatment on 02/01. [...] do labs day prior to treatment in [place]. Pt seeing Rad Onc on 01/26 to discuss treatment to Scap[place]. Dr. Plunkett- ok to use labs from today for first treatment? * Telephone Encounter - Samantha Strange RN - 01/19/2025 4:50 PM EDT Referral entered. * Telephone Encounter - Samantha Strange RN - 01/19/2025 4:25 PM EDT Order received for tecentriqisabelrabev. [place] plan built and routed for signature. Waiting for auth. Consent signed 01/19/25. Nurse education 01/21/25. Patient will need hep B labs- Dr Plunkett would also like 1x AFP. PET 01/26/25. Mediport ordered- not yet scheduled (can start prior to mediport placement). Patient is seeing [facility] rad/onc next week for radiation to skull. Per Dr Plunkett, david to start before radiation is complete/ while patient is still receiving radiation. documented in this encounter Plan of Treatment Upcoming Encounters Date Type Department Care Team (Latest Contact Info) Description 01/26/2025 9:45 AM EDT Imaging Radiology, [facility] [address] [place] [phone] 01/27/2025 11:30 AM EDT Hospital Encounter OR [facility], Operating Room, [facility] - 4th Floor [address] [place] [phone] Rambo Parker MD [address] [place] [address] 01/27/2025 11:30 AM EDT - 01/27/2025 12:29 PM EDT Surgery OR [facility], Operating Room, [facility] - 4th Floor [address] [place] [address] Rambo Parker MD 400 [facility] [place] [address] INSERT TUNNELED CENTRAL VENOUS ACCESS WITH SUBQ PORT 02/02/2025 11:00 AM EDT Hem/Onc Treatment Hematology/Oncology Treatment, [place] [address] [place] [address] Denia, Chair 3 Hem Onc [address] [place] [address] 02/10/2025 1:00 PM EDT Office Visit Hematology/Oncology [facility] [place] [address] [place] [phone] Tunde Plunkett MD 200 [place] [address] 02/25/2025 11:00 AM EDT Office Visit [address] [phone] Jay Gonzales MD [address] [place] [phone] Scheduled Procedures Name Priority Associated Diagnoses [...] AND IGM (01/21/2025 12:53 PM EDT) Pathologist [facility] Hepatitis B Core Antibodies IgG and IgM Negative Negative 01/21/2025 9:16 PM EDT [facility] Blood Venous blood specimen / Unknown Venipuncture / Unknown 01/21/2025 12:53 PM EDT 01/21/2025 12:53 PM EDT Tunde Plunkett MD LAB BLOOD ORDERABLES Final Res ult Performing Organization Address City/[facility]/ZIP Co de Phone Number LABORATORY [address] [address] * HEPATITIS B SURFACE ANTIGEN (01/21/2025 12:53 PM EDT) Pathologist [facility] Hepatitis B Surface Antigen Negative Negative 01/21/2025 9:16 PM EDT [facility] Blood Venous blood specimen / Unknown Venipuncture / Unknown 01/21/2025 12:53 PM EDT 01/21/2025 12:53 PM EDT Tunde Plunkett MD LAB BLOOD ORDERABLES Final Res ult LABORATORY [place] [address] [place] [address] * HEPATITIS B SURFACE ANTIBODY (01/21/2025 12:53 PM EDT) Pathologist [facility] Hepatitis B Surface Antibody, Quantitative <3.5 mIU/mL 01/21/2025 9:16 PM EDT [facility] Hepatitis B Surface Antibody, Qualitative Negative 01/21/2025 9:16 PM EDT [facility] Hepatitis B Surface Antibody, Interpretation NOT immune to Hepatitis B Virus 01/21/2025 9:16 PM EDT [facility] Comment: POSITIVE: >=11.5 mIU/mL INDETERMINATE: 8.5-<11.5 mIU/mL NEGATIVE: <8.5 mIU/mL Blood Venous blood specimen / Unknown Venipuncture / Unknown 01/21/2025 12:53 PM EDT 01/21/2025 12:53 PM EDT Tunde Plunkett MD LAB BLOOD ORDERABLES Final Res ult Performing Organization Address [facility]/ZIP Co de Phone Number [facility] [address] [place] [address] * (ABNORMAL) ALPHA-FETOPROTEIN TUMOR MARKER (01/21/2025 12:53 PM EDT) Alpha-Fetoprot ein Tumor Marker 11,402.0(H ) 0.0 - 8.3 ng/mL 01/21/2025 9:48 PM EDT [facility] Blood Venous blood specimen / Unknown Venipuncture / Unknown 01/21/2025 12:53 PM EDT 01/21/2025 12:53 PM EDT Tunde Plunkett MD LAB BLOOD ORDERABLES Final Res ult [facility] [address] [place] [address] documented in this encounter Visit Diagnoses Diagnosis [...] Advance Directives occurred with: Patient Care Teams Enterprise Systems Manager Relationship Specialty Start Date End Date Jay Gonzales MD [address] [place] [phone] PCP - General Family Medicine 09/13/22 documented as of this encounter
--- OUTSIDE RECORDS SUMMARY | 2025-02-12 16:09 | External Medical Summary ---
Author Name Unknown Address Unknown Organization K01:[facility] [place] [address] [facility] [place] [address] Laboratory Report Ordering Provider Test Date Status JEREMIAH CROCKETT 01/21/2025 12:53:14 Final Observation Date Value Abnormality Reference (Units ) Status Hepatitis B virus core Ab [Presence] in Serum 01/21/2025 12:53:14 Negative Negative Final Performing Location [facility] [address] [facility] [address]
--- OUTSIDE RECORDS SUMMARY | 2025-02-12 16:09 | External Medical Summary ---
Author Name Unknown Address Unknown Organization K09:[facility] [place] [address] Laboratory Report Ordering Provider Test Date Status JEREMIAH CROCKETT 01/21/2025 12:53:14 Final Observation Date Value Abnormality Reference (Units ) Status Nucleated erythrocytes/100 leukocytes [Ratio] in Blood by Automated count 01/21/2025 12:53:14 Final Performing Location [facility] [place] [address]
--- OUTSIDE RECORDS SUMMARY | 2025-02-12 16:10 | External Medical Summary | Summary of Care ---
Author Name Unknown Organization [facility] Address [address] [place] [address] Phone [phone] Care Team Providers Care All Source Collection Manager Name Role Phone Jay Gonzales MD Primary Care Provi syl Reason for Visit * Reason Onset Date Comments Hospital Follow-Up 01/17/2025 Hem/onc disch arge Encounter Details Date Type Department Care Team (Late st Contact Info) Description 01/17/2025 Telephone Hematology/Oncology Treatment, [place] [address] [place] [address] Tunde Plunkett MD [address] [place] [address] Hospital Follow-Up (Hem/onc discharge) Allergies No known active allergiesdocumented as of this encounter (statuses as of 01/17/2025) Medications Multiple Vitamins-Minera ls (CENTRUM ADULTS) TABS [...] NOT CUT, CRUSH OR CHEW (TAKE WITH [id number] DAILY) 90 Capsule 1 5 Active Gabapentin [...] suspected opioid overdose. Seek immediate medical attention. https://www.SkinMedica.com/watch? [email or web address] 2 Each 3 Active documented as of this encounter (statuses as of 01/17/2025) Active Problems Problem Noted Date Diagnosed Date Metastasis to bone 01/10/2025 Decompensated HCV cirrhosis [...] as of this encounter (statuses as of 01/17/2025) Resolved Problems Problem Noted Date Diagnosed Date Resolved Date Acute hypoxic respiratory failure 01/06/2025 01/07/2025 Cholelithiasis 01/06/2025 01/13/2025 OTHER 11/15/2009 08/20/2018 Overview (11/20/2009): Genotype 1a Chronic hepatitis C 09/21/2009 08/20/20 18 documented as of this encounter (statuses as of 01/17/2025) Immunizations Name Administration Dates Next Due TDAP, [...] encounter Miscellaneous Notes * Telephone Encounter - Gaby Urena OSA - 01/17/2025 9:53 AM EDT Rad onc is aware and will contact the patient to schedule * Telephone Encounter - Samantha Strange RN - 01/17/2025 8:08 AM EDT HEMATOLOGY/ONCOLOGY HOSPITAL DISCHARGE FOLLOW-UP Call placed to patients to follow up after hospital discharge. Dates patient was admitted at [facility]: 01/06/25 to 01/14/25 with a primary diagnosis of acute hypoxic respiratory failure, bone metastasis. Received radiation to right sixth rib and scapula while admitted.Plan is radiation to skull met as an outpatient. Currently has the following complaints: patients verbalized being worried about her as she has new metastases. Advised him that she want to get her in to see Dr Plunkett quickly to discuss and answer questions. He states that patient wants to get chemotherapy started JERO . All current medications reviewed with patient. Patient verbalizes understanding of regimen. Post discharge hospital visit is scheduled and patient is aware for 01/19/25. Dr Plunkett: [facility] Scheduling: can you please fax rad/onc referral placed 01/13 by inpatient team to [facility] rad/onc? Thanks! documented in this encounter Plan of Treatment Upcoming Encounters Date Type Department Care Team (Late st Contact Info) Description 01/17/2025 2:30 PM EDT Telemedicine Orthopaedics, [address] [phone] Sg Storm PA-C [address] [place] [address] 01/19/2025 11:30 AM EDT Office Visit Hematology/Oncology [facility] [place] [phone] Tunde Plunkett MD 200 [facility] [place] [address] 02/10/2025 1:00 PM EDT Office Visit Hematology/Oncology [place] [place] [address] [phone] Tunde Plunkett MD 200 [facility] [place] [address] 02/25/2025 11:00 AM EDT Office Visit Family [place] [phone] Jay Gonzales MD [address] [place] [phone] Scheduled Procedures Name Priority Associated Diagnoses Date/Ti me COLONOSCOPY FLEXIBLE PROXIMA L DIAGNOSTIC Recall Personal history of colonic polyps Health Maintenance Due Date Last Done Comments COVID-19 Vaccine (#1) 1964 Zoster Vaccines (1 of 2) 1978 Depression Monitoring 06/25/2023 06/25/2022 Influenza Vaccine (FLU shot) (#1) 2024 Cervical Cancer Screening Discontinued Pap Smear Discontinued [...] Advance Directives occurred with: Patient Care Teams All Source Collection Manager Relationship Specialty Start Date End Date Jay Gonzales MD [address] [place] [phone] PCP - General Family Medicine 09/13/22 documented as of this encounter
--- OUTSIDE RECORDS SUMMARY | 2025-02-12 16:10 | External Medical Summary | Summary of Care ---
Author Name Unknown Organization [facility] Address [address] [place] [address] Phone [phone] Care Team Providers Care National Business Director Name Role Phone Jay Gonzales MD Primary Care Provi [facility] Reason for Visit * Reason Comments Follow Up Encounter Details Date Type Department Care Team (Late st Contact Info) Description 01/17/2025 2:30 PM EDT Telemedicine Orthopaedics, [facility] [address] [place] [address] Sg Storm PA-C [address] [place] [address] Adhesive capsulitis of right shoulder*; Pain from bone metastases (HCC) Allergies No known active allergiesdocumented as [...] NOT CUT, CRUSH OR CHEW (TAKE WITH [id number] DAILY) 90 Capsule 1 5 Active Gabapentin [...] suspected opioid overdose. Seek immediate medical attention. https://www.[email or web address]/watch? [email or web address] 2 Each 3 5 Active documented as of this [...] Assessment Author No 01/06/2025 6:09 PM JAVIERT Nnoi Molina RN * Are you blind or [...] documented in this encounter Progress Notes * Sg Strom PA-C - 01/17/2025 2:27 PM EDT As per patient preference, connection with the patient via audio only occurred. The patient was informed this was a phone call only visit and was identified by name and date of . The patient agreed to participate. Total call duration was 2.5 minutes. HPI: 2 WEEK F/U VISIT, S/P cortisone injection right shoulder for adhesive capsulitis. Spoke with her daughter, who informed me that the spot that we noticed on the xray did pipe turner to be a metastatic lesion as identified on subsequent CT scan. She had 1 treatment of radiation already to the area and just came home from [facility] yesterday. PE: GENERAL, PLEASANT AND COOPERATIVE ON EXAM TODAY No change SEEN SINCE LAST VISIT. IMPRESSION: Right shoulder metastatic lesion PLAN: Discussed exam, imaging findings, diagnosis, and treatment options with patient's daughter and given the new information with the CT scan, will defer further treatment plans to her oncology team regarding pain relief measures. If they feel it is appropriate in the future for repeat cortisone injections, I will certainly see her back in our clinic. documented in this encounter Plan of Treatment Upcoming Encounters Date Type Department Care Team (Late st Contact Info) Description 01/19/2025 11:30 AM EDT Office Visit Hematology/Oncology [facility] [address] [place] [phone] Tunde Plunkett MD 200 [facility] [place] [address] 02/10/2025 1:00 PM EDT Office Visit Hematology/Oncology [facility] [place] [address] [place] [phone] Tunde Plunkett MD [address] [place] [address] [place] [address] 02/25/2025 11:00 AM EDT Office Visit [address] [phone] Jay Gonzales MD [address] [place] [phone] Scheduled Procedures Name Priority Associated Diagnoses Date/Ti me COLONOSCOPY FLEXIBLE PROXIMA L DIAGNOSTIC Recall Personal history of colonic polyps Health Maintenance Due Date Last Done Comments COVID-19 Vaccine (#1) 1964 Depression Monitoring 1971 Zoster Vaccines (1 of 2) 1978 Influenza Vaccine (FLU shot) (#1) 2024 Cervical [...] right shoulder- Primary Adhesive capsulitis of shoulder Pain from bone metastases (HCC) documented in this encounter Additional Health Concerns [...] Advance Directives occurred with: Patient Care Teams National Business Director Relationship Specialty Start Date End Date Jay Gonzales MD [address] [place] [phone] PCP - General Family Medicine 09/13/22 documented as of this encounter
--- OUTSIDE RECORDS SUMMARY | 2025-02-12 16:10 | External Medical Summary | Summary of Care ---
Author Name Unknown Organization [facility] Address [address] [place] [address] Phone [phone] Care Team Providers Care Automotive Electrical Fitter Name Role Phone Jay Gonzales MD Primary Care Provi syl Reason for Visit * Reason Onset Date Comments FYI 01/17/2025 Home Health Encounter Details Date Type Department Care Team ([facility] Contact Info) Description 01/17/2025 Telephone Family Practice [facility] [address] [place] [address] Jay Gonzales MD [address] [place] [phone] FYI (Home Health) Allergies No known active allergiesdocumented as of this encounter (statuses as of 01/18/2025) Medications Multiple Vitamins-Minera ls (CENTRUM ADULTS) TABS [...] NOT CUT, CRUSH OR CHEW (TAKE WITH [id number] DAILY) 90 Capsule 1 5 Active Gabapentin [...] suspected opioid overdose. Seek immediate medical attention. https://www.Blyk.com/watch? [email or web address] 2 Each 3 Active documented as of this encounter (statuses as of 01/18/2025) Active Problems Problem Noted Date Diagnosed Date [...] as of this encounter (statuses as of 01/18/2025) Resolved Problems Problem Noted Date Diagnosed Date Resolved Date Acute hypoxic respiratory failure 01/06/2025 01/07/2025 Cholelithiasis 01/06/2025 01/13/2025 OTHER 11/15/2009 08/20/2018 Overview (11/20/2009): Genotype 1a Chronic hepatitis C 09/21/2009 08/20/20 18 documented as of this encounter (statuses as of 01/18/2025) Immunizations Name Administration Dates Next Due TDAP, [...] encounter Miscellaneous Notes * Telephone Encounter - Jay Gonzales MD - 01/18/2025 8:38 AM EDT noted * Telephone Encounter - Angela Stephens OSA - 01/17/2025 12:59 PM EDT Calling to advise Dr Gonzales's office that patient has declined home health and will not be using them. Pt states she doesn't want it right now has her daughter to take care of her. Steff was just calling to advise the office of. A call back is not needed unless the office deems necessary. She can be reached, if needed, at [phone]. She said ask for scheduling and then for her directly. documented in this encounter Plan of Treatment Upcoming Encounters Date Type Department Care Team (Late st Contact Info) Description 01/19/2025 11:30 AM EDT Office Visit Hematology/Oncology [address] [place] [phone] Tunde Plunkett MD 200 [place] [address] 02/10/2025 1:00 PM EDT Office Visit Hematology/Oncology [facility] [address] [place] [phone] Tunde Plunkett MD [address] [place] [address] [place] [address] 02/25/2025 11:00 AM EDT Office Visit Family [address] [phone] Jay Gonzales MD [address] [place] [phone] Scheduled Procedures Name Priority Associated Diagnoses Date/Ti [...] Advance Directives occurred with: Patient Care Teams Automotive Electrical Fitter Relationship Specialty Start Date End Date Jay Gonzales MD [address] [place] [address] [place] [phone] PCP - General Family Medicine 09/13/22 documented as of this encounter
--- OUTSIDE RECORDS SUMMARY | 2025-02-12 16:10 | External Medical Summary | Summary of Care ---
Author Name Unknown Organization [facility] Address [address] [place] [address] Phone [phone] Care Team Providers Care Senior Software Development Manager Name Role Phone Jay Gonzales MD Primary Care Provi [facility] Encounter Details Date Type Department Care Team (Late st Contact Info) Description 01/19/2025 Orders Only Hematology/Oncology Treatment, [place] [address] [facility] [place] [address] Tunde Plunkett MD [address] [place] [address] Hepatocellular carcinoma (HCC)*; Metastasis to bone (HCC); Encounter for long-term [...] NOT CUT, CRUSH OR CHEW (TAKE WITH [id number] DAILY) 90 Capsule 1 5 Active Gabapentin [...] suspected opioid overdose. Seek immediate medical attention. https://[email or web address].com/[email or web address]? [email or web address] 2 Each 3 5 Active Morphine Sulfate [...] Date Author Yes 01/06/2025 6:09 PM JAVIERT Nnoi Molina RN documented in this encounter Plan of Treatment Upcoming Encounters Date Type Department Care Team (Late st Contact Info) Description 01/21/2025 12:00 PM EDT Pt Ed by Nurse Hematology/Oncology [facility] [address] [place] [phone] Nurse Denia Hem Onc [facility] [address] [place] [address] 01/26/2025 9:45 AM EDT Imaging Radiology, [facility] [address] [place] [address] 02/10/2025 1:00 PM EDT Office Visit Hematology/Oncology [facility] [address] [address] [place] [phone] Tunde Plunkett MD [address] [place] [address] 02/25/2025 11:00 AM EDT Office Visit [address] [phone] Jay Gonzales MD [address] [place] [phone] Scheduled Orders Name Type Priority Associated Diagnoses Orde r Schedule CBC WITH WBC DIFFERENTIAL Lab STAT Hepatocellular carcinoma (HCC) Metastasis to bone (HCC) Every 3 Weeks for 17 Occurrences starting 01/19/2025 until 01/19/2026 COMPREHENSIVE METABOLIC PANEL Lab STAT Hepatocellular carcinoma (HCC) Metastasis to bone (HCC) Every 3 Weeks for 17 Occurrences starting 01/19/2025 until 01/19/2026 TSH WITH FREE T4 IF INDICATED Lab STAT Hepatocellular carcinoma (HCC) Metastasis to bone (HCC) Encounter for long-term (current) use of medications Every 3 Weeks for 17 Occurrences starting 01/19/2025 until 01/19/2026 URINALYSIS, REFLEX TO MICROSCOPIC Lab STAT Hepatocellular carcinoma (HCC) Metastasis to bone (HCC) Every 3 Weeks for 17 Occurrences starting 01/19/2025 until 01/19/2026 Scheduled Procedures Name Priority Associated Diagnoses [...] of other medications documented in this encounter Additional Health Concerns [...] Directives occurred with: Patient Care Teams Senior Software Development Manager Relationship Specialty Start Date End Date Jay Gonzales MD [address] [place] [phone] PCP - General Family Medicine 09/13/22 documented as of this encounter
--- OUTSIDE RECORDS SUMMARY | 2025-02-12 16:10 | External Medical Summary | Summary of Care ---
Author Name Unknown Organization [facility] Address [address] [place] [address] Phone [phone] Care Team Providers Care Timekeeper Supervisor Name Role Phone Jay Gonzales MD Primary Care Provi syl Reason for Visit * Reason Onset Date Comments Imaging Records Request 01/18/2025 Encounter Details Date Type Department Care Team (Late st Contact Info) Description 01/18/2025 Telephone Radiology Film File [address] [place] [address] Support, Imaging Radiology [address] [place] [address] Imaging Records Request Allergies No known active allergiesdocumented as of [...] NOT CUT, CRUSH OR CHEW (TAKE WITH [id number] DAILY) 90 Capsule 1 5 Active Gabapentin [...] suspected opioid overdose. Seek immediate medical attention. https://www.Mind [email or web address]/watch? [email or web address] 2 Each 3 5 Active documented as [...] encounter Miscellaneous Notes * Telephone Encounter - New Kim, Epic Support - 01/18/2025 1:35 PM EDT Luis Miguel Schultz requesting 10-14-2024 to 01-12-2025 CT CHEST, XR SHOULDER, CT HEAD/BRAIN, MRV BRAIN, MRI BRAIN images be pushed through PACS. [place] Authorization to Release on file. Images pushed to Luis Miguel [facility]in[facility] PACS external connection. documented in this encounter Plan of Treatment Upcoming Encounters Date Type Department Care Team (Late st Contact Info) Description 01/19/2025 11:30 AM EDT Office Visit Hematology/Oncology [facility] 200 [facility] [place], [place] [phone] Tunde Plunkett MD 200 [facility] [place] [address] 02/10/2025 1:00 PM EDT Office Visit Hematology/Oncology [facility] 200 [facility] [place] [phone] Tunde Plunkett MD 200 [facility] [place], [place] [address] 02/25/2025 11:00 AM EDT Office Visit Family [address] [phone] Jay Gonzales MD [address] [place] [phone] Scheduled Procedures Name Priority Associated Diagnoses [...] Advance Directives occurred with: Patient Care Teams Timekeeper Supervisor Relationship Specialty Start Date End Date Jay Gonzales MD [address] [place] [phone] PCP - General Family Medicine 09/13/22 documented as of this encounter
--- OUTSIDE RECORDS SUMMARY | 2025-02-12 16:10 | External Medical Summary | Summary of Care ---
Author Name Unknown Organization [facility] Address [address] [place] [address] Phone [phone] Care Team Providers Care Crab Catcher Name Role Phone Jay Gonzales MD Primary Care Provi syl Reason for Visit * Reason Onset Date Comments Hospital Follow-Up 01/17/2025 Hem/onc disch arge Encounter Details Date Type Department Care Team (Late st Contact Info) Description 01/17/2025 Telephone Hematology/Oncology Treatment, [place] [address] [place] [address] Tunde Plunkett MD 200 [place] [address] Hospital Follow-Up (Hem/onc discharge) Allergies No known [...] NOT CUT, CRUSH OR CHEW (TAKE WITH [id number] DAILY) 90 Capsule 1 5 Active Gabapentin [...] suspected opioid overdose. Seek immediate medical attention. https://www.S5 Tech.com/watch? v=[email or web address] 2 Each 3 Active documented as of [...] hospital discharge. Dates patient was admitted at [facility]: 01/06/25 to 01/14/25 with a primary diagnosis [...] patient is aware for 01/19/25. Dr Plunkett: [facility] Scheduling: can you please fax rad/onc referral placed 01/13 by inpatient team to [facility] rad/onc? Thanks! documented in this encounter Plan of Treatment Upcoming Encounters Date Type Department Care Team (Late st Contact Info) Description 01/17/2025 2:30 PM EDT Telemedicine Orthopaedics, [address] [phone] Sg Storm PA-C [address] [place] [address] 01/19/2025 11:30 AM EDT Office Visit Hematology/Oncology [facility] [address] [phone] Tunde Plunkett MD 200 [facility] [place] [address] 02/10/2025 1:00 PM EDT Office Visit Hematology/Oncology [facility] [address] [place] [phone] Tunde Plunkett MD 200 [place] [address] 02/25/2025 11:00 AM EDT Office Visit Family [place] [phone] Jay Gonzales MD [address] [place] [phone] Scheduled Procedures Name Priority Associated Diagnoses Date/Ti [...] Advance Directives occurred with: Patient Care Teams Crab Catcher Relationship Specialty Start Date End Date Jay Gonzales MD [address] [place] [phone] PCP - General Family Medicine 09/13/22 documented as of this encounter
--- OUTSIDE RECORDS SUMMARY | 2025-02-12 16:10 | External Medical Summary | Summary of Care ---
Author Name Unknown Organization [facility] Address [address] [place] [address] Phone [phone] Care Team Providers Care Census Clerk Name Role Phone Jay Gonzales MD Primary Care Provi syl Reason for Visit * Reason Onset Date Comments Precert Future 01/19/2025 kat Espinosa Encounter Details Date Type Department Care Team (Late st Contact Info) Description 01/19/2025 Telephone Hematology/Oncology Treatment, [place] [address] [place] [address] Tunde Plunkett MD [address] [place] [address] Precert Future (Tecisabel wattrabev) Allergies No known [...] NOT CUT, CRUSH OR CHEW (TAKE WITH [id number] DAILY) 90 Capsule 1 5 Active Gabapentin [...] suspected opioid overdose. Seek immediate medical attention. https://www.XipLink.com/watch? v=[email or web address] 2 Each 3 5 Active Morphine Sulfate [...] 01/19/2025 4:25 PM EDT Order received for teckrista wattbev. Drift plan built and routed for signature. Waiting for auth. Consent signed 01/19/25. Nurse education 01/21/25. Patient will need hep B labs- Dr Plunkett would also like 1x AFP. PET 01/26/25. Mediport ordered- not yet scheduled (can start prior to mediport placement). Patient is seeing [facility] rad/onc next week for radiation to skull. Per Dr Plunkett, ok to start before radiation is complete/ while patient is still receiving radiation. documented in this encounter Plan of Treatment Upcoming Encounters Date Type Department Care Team (Late st Contact Info) Description 01/21/2025 12:00 PM EDT Pt Ed by Nurse Hematology/Oncology [facility] [place] [address] [place] [phone] Nurse Denia Hem Onc [facility] [address] [place] [address] 01/26/2025 9:45 AM EDT Imaging Radiology, [address] [place] [address] 02/10/2025 1:00 PM EDT Office Visit Hematology/Oncology [facility] [place] 200 [facility] [place] [phone] Tunde Plunkett MD 200 [facility] [place] [address] 02/25/2025 11:00 AM EDT Office Visit [address] [phone] Jay Gonzales MD [address] [place] [phone] Scheduled Orders Name Type Priority Associated Diagnoses [...] Encounter for screening for other viral diseases documented in this encounter Additional Health Concerns [...] Advance Directives occurred with: Patient Care Teams Census Clerk Relationship Specialty Start Date End Date Jay Gonzales MD [address] [place] [phone] PCP - General Family Medicine 09/13/22 documented as of this encounter
--- OUTSIDE RECORDS SUMMARY | 2025-02-12 16:10 | External Medical Summary | Summary of Care ---
Author Name Unknown Organization [facility] Address [address] [place] [address] Phone [phone] Care Team Providers Care General Assembler Name Role Phone Jay Gonzales MD Primary Care [facility] Reason for Referral * Precert (Within 10 days (routine)) - Authorized Specialty Diagnoses / Procedures Referred By Contac t Referred To Contact Radiology Diagnoses Hepatocellular carcinoma (HCC) Metastasis to bone (HCC) Procedures PET CT SKULL BASE TO MID-THIGH FDG Tunde Plunkett MD [address] [place] [address] Phone: tel: fax: Referral ID Status Reason Start Date Expiration Date V isits Requested Visits Authorized [id number] Authorized 01/19/2025 999 999 * Precert (Within 10 days (routine)) - Authorized Specialty Diagnoses / Procedures Referred By Contac t Referred To Contact Radiology Diagnoses Hepatocellular carcinoma (HCC) Metastasis to bone (HCC) Procedures IR VENOUS ACCESS MEDIPORT Tunde Plunkett MD [address] [place] [address] Phone: tel: fax: Referral ID Status Reason Start Date Expiration Date V isits Requested Visits Authorized [id number] Authorized 01/26/2025 999 999 Reason for Visit * Reason Comments Follow Up HD follow up Encounter Details Date Type Department Care Team (Latest Contact Info) Description 01/19/2025 11:30 AM EDT Office Visit Hematology/Oncology [place] [address] [place] [address] Tunde Plunkett MD 200 [facility] [place] [address] Hepatocellular carcinoma (HCC)*; Metastasis to bone (HCC); Leg edema Allergies No known active allergiesdocumented [...] NOT CUT, CRUSH OR CHEW (TAKE WITH [id number] DAILY) 90 Capsule 1 5 Active Gabapentin [...] suspected opioid overdose. Seek immediate medical attention. [email or web address]? [email or web address] 2 Each 3 5 Active Morphine Sulfate [...] by mouth in the morning. 30 Tablet Active Spironolactone 25 MG Oral Tablet (Aldactone)Heather cations:Hepatoc ellular carcinoma (HCC),Metastasi s to bone (HCC),Leg edema Take 1 Tablet by mouth in the morning and 1 Tablet before bedtime. 60 Tablet 3 Active documented as of this encounter [...] Sign Reading Time Taken Comments Blood Pressure 121/77 01/19/2025 11:31 AM EDT Pulse 96 01/19/2025 11:31 AM EDT Temperature 36.6 °C (97.8 °F) 01/19/2025 11:31 AM E DT Respiratory Rate - - Oxygen Saturation 89% 01/19/2025 11:31 AM EDT Inhaled Oxygen Concentration - - Weight 79.2 kg (174 lb 8 oz) 01/19/2025 11:31 AM EDT Height - - Body Mass Index 30.91 01/06/2025 6:09 PM EDT documented in this encounter Functional Status [...] Progress Notes * Tunde Plunkett MD - 01/19/2025 4:04 PM EDT Hematology/Oncology Outpatient Consult Note Ena Sutton [address] [place] [address] NEHA MARKS MR # [id number] :1960 64-year-old female, Date of consultation:11/12/2024 DIAGNOSIS: [...] right scapular mass --> metastatic hepatocellular carcinoma. CURRENT TREATMENT: I have not planning for systemic treatment with atezolizumab and Bevacizumab Regarding pain management, will start MS Contin 15 mg every 12 hourly and she will continue immediate release morphine sulfate 7.5 mg every 4 to 6 hourly. She will need port for upcoming treatment. She is having Radiation Oncology evaluation at [facility] to consider radiation treatment to the bony lesions.. She had a radiation treatment x1 dose ( 800 cGy [...] Hemoglobin and hematocrit -12.3/40, [place] [address]. OTHER IMPORTANT HISTORY: -portal hypertension -smoking present -depression. -hypertension INTERVAL HISTORY: She has come the clinic for the follow-up, accompanied by her and daughter in the office. Recently she was admitted at [facility], reviewed hospital records, she had increasing pain in the right shoulder and right upper abdominal region, further workup showed metastatic disease involving the right scapula, posterior pleural-based mass in the right chest, skull bone ( left frontal) metastatic disease, she received 1 dose of radiation treatment ( 800 cGy) to the right 6th rib and scapular lesion on 01/14/2025. She is not feeling quite well, has increasing bilateral leg edema, she was on Lasix when she was inhospital but when she was discharged, she was not given any diuretic treatment, she denies any bleeding from the sites, fair appetite, current weight around 174 lb, she is on immediate release morphine sulfate 7.5 mg every 6 hourly, sometimes has taken 4 hourly. No fever. Past Medical History: Diagnosis Date Benign neoplasm [...] performed by Leandro Torres MD at [facility] EGD, FLEXIBLE, DIAGNOSTIC 05/06/2019 normal bx/ESOPHAGOGASTRODUODENOSCOPY (EGD), FLEXIBLE, TRANSORAL, DIAGNOSTIC performed by Leandro Torres MD at [facility] EGD, FLEXIBLE, DIAGNOSTIC 06/20/2022 Portal hypertensive gastropathy, eso varices / ESOPHAGOGASTRODUODENOSCOPY (EGD), FLEXIBLE, TRANSORAL, DIAGNOSTIC performed by Leandro Torres MD at [facility] IR BIOPSY 01/12/2025 LASIK SURGERY THUMB FX/DISLOC (MELÉNDEZ), REPAIR 2000 rt Current Outpatient Medications Medication Sig Dispense Refill Morphine Sulfate ER 15 MG Oral Tablet [...] 1 Tablet before bedtime. 60 Tablet 3 Multiple Vitamins-Minerals (CENTRUM ADULTS) TABS Take 1 [...] NOT CUT, CRUSH OR CHEW (TAKE WITH [id number] DAILY) 90 Capsule 1 Gabapentin 100 MG [...] 1 Packet before bedtime. 60 Packet 3 Fidaxomicin 200 MG Oral Tablet (Dificid) Take 1 Tablet by mouth in the morning and 1 Tablet before bedtime. 10 Tablet 0 Ondansetron HCl 4 MG Oral Tablet Take 1 Tablet by mouth every 8 hours as needed for Nausea. 20 Tablet 0 Naloxone HCl 4 MG/0.1ML Nasal Liquid (Narcan Nasal) Administer 1 spray into 1 nostril for suspectedopioid overdose. Seek immediate medical attention. [email or web address] 2 Each 3 No current facility-administered medications for this visit. Family History Problem Relation Name Age of Onset No Past Hx Mother Gastro-intestinal disorder Father of cirrhosis in fifties, etoh Lung Disorder Sister copd Social History Socioeconomic History Marital status: Spouse name: Not on file Number of children: Not on file Years of education: Not on file Highest education level: Not on file Occupational History Not on file Tobacco Use Smoking status: Every Day Current packs/day: 0.50 Average packs/day: 0.5 packs/day for 20.0 years (10.0 ttl pk-yrs) Types: Cigarettes Passive exposure: Never Smokeless tobacco: Never Tobacco comments: 10 per day Vaping Use Vaping status: Never Used Substance and Sexual Activity Alcohol use: No Drug use: No Sexual activity: Yes Partners: Male Comment: M 1987, vas Other Topics Concern Not on file Social History Narrative Not on file Social Needs Financial Resource Strain: Not on file Food Insecurity: Not on file Transportation Needs: Not on file Social Connections: Not on file Housing Stability: Not on file On Exam: BP 121/77 (BP Site: Left Arm, BP Position: Sitting, BP Cuff Size: Regular) | Pulse 96 | Temp 36.6 °C (97.8 °F) (Tympanic) | Wt 79.2 kg (174 lb 8 oz) | SpO2 89% | BMI 30.91 kg/m² | BSA 1.88 m² Constitutional: Patient is alert, cooperative and oriented [...] sounds, no murmurs.Regular rate and rhythm. Abdomen: soft, nontender, no hepatomegaly, no splenomegaly. Bowel sounds are normal. Neurological: No gross focal neurological deficit; walks with a normal gait. Extremities: No finger clubbing, No cyanosis. No leg edema. Skin:: No skin rash. SPINE: No spinal or paraspinal tenderness. LABS: Alpha-Fetoprotein Tumor Marker Latest Ref Rng 0.0 - 8.3 ng/mL 10/10/2020 6.5 04/10/2021 6.7 03/13/2023 5.7 10/11/2024 678.6 (H) IMAGING: As described above. ASSESSMENT AND PLAN: 64-year-old female, a case [...] on 12/2024 when she was admitted at [facility]. I reviewed with the regarding imaging studies, now she has stage IV disease, no more liver directedtreatment is indicated. Would like to get PET-CT scan to look for the extent of the disease. Talked to them about role of systemic treatment with atezolizumab and bevacizumab that can be considered, earlier we planned for upper GI endoscopic but it has been done, now would like to start of the treatment soon and family is eager to start treatment soon. After discussion, decided not to proceed with the upper GI endoscopic at this time as it may delay the treatment plan. We talked about treatment with atezolizumab and bevacizumab, side effect profile and she is in agreement for that. For better pain management, would like to start long-acting opioid with MS Contin 15 mg every 12 hourly and she will continue to use immediate release morphine sulfate 7.5 mg every 4 to 6 hourly. Constipation is expected, advised him to try MiraLax and Senokot for the symptomatic treatment. She has increasing bilateral leg edema, would like to start Lasix 20 mg once a day and Aldactone 25mg twice a day and see how she does. She will be seen by radiation oncologist at [facility] next week. E-prescribed Compazine Zofran for the symptomatic treatment of nausea and vomiting. Will get alpha-fetoprotein level when she comes for the next blood workup. She will need port for upcoming chemotherapy. Dr. Tunde Plunkett Hem/Onc (This note was completed using the dictation program Fluency Direct. As such, there may be misspellings word substitutions, or other variations that should not change the essence of the clinical content of this encounter note. If there is need for further clarification, please direct questions to the provider listed above.) documented in this encounter Nursing Notes * Liliane Nolasco CMA - 01/19/2025 11:32 AM EDT Patient identifed by name and birthdate Do you have any concerns about pain management for today's visit? Yes. Patient instructed to discuss pain concerns with provider during the visit today Living Will or Advance Directive for Health Care as noted on the problem list. MyTabSysisinger is a way you can talk to your provider on line through e-mail. Would you like to sign up? I can activate it for you? ALREADY ACTIVE Filed Vitals: 01/19/25 1131 BP: 121/77 Pulse: 96 Temp: 36.6 °C (97.8 °F) TempSrc: Tympanic SpO2: 89% Weight: 79.2 kg (174 lb 8 oz) Patient was instructed to not get [...] by Nurse Hematology/Oncology State Maira Spencer [address] [place] [address] Denia, Nurse Hem Onc [place] [address] [place] [address] 01/26/2025 9:45 AM EDT Imaging Radiology, [facility] [address] [place] [address] 02/10/2025 1:00 PM EDT Office Visit Hematology/Oncology [facility] [place] [address] [place] [phone] Tunde Plunkett MD [address] [place] [address] 02/25/2025 11:00 AM EDT Office Visit [address] [phone] Jay Gonzales MD [address] [place] [phone] Scheduled Orders Name Type Priority Associated Diagnoses Orde r Schedule IR VENOUS ACCESS MEDIPORT Medical Imaging Routine Hepatocellular carcinoma (HCC) Metastasis to bone (HCC) Expected: 01/26/2025, Expires: 02/18/[address] SKULL BASE TO MID-THIGH FDG Medical Imaging Routine Hepatocellular carcinoma (HCC) Metastasis to bone (HCC) Ordered: 01/19/2025 Scheduled Procedures Name Priority Associated Diagnoses Date/Ti [...] malignant neoplasm of bone and bone marrow Leg edema Edema documented in this encounter Additional Health Concerns [...] Advance Directives occurred with: Patient Care Teams General Assembler Relationship Specialty Start Date End Date Jay Gonzales MD [address] [place] [phone] PCP - General Family Medicine 09/13/22 documented as of this encounter"
--- OUTSIDE RECORDS SUMMARY | 2025-02-12 16:10 | External Medical Summary | Summary of Care ---
Author Name Unknown Organization [facility] Address [address] [place] [address] Phone [phone] Care Team Providers Care Motor Builder Assembler Name Role Phone Jay Gonzales MD Primary Care [facility] Reason for Visit * Reason Onset Date Comments Advice 01/17/2025 ramon Encounter Details Date Type Department Care Team (Late st Contact Info) Description 01/17/2025 Telephone Hematology/Oncology [facility] [address] [place] [address] Tunde Plunkett MD [address] [place] [address] Advice (ramon) Allergies No known active allergiesdocumented [...] NOT CUT, CRUSH OR CHEW (TAKE WITH [id number] DAILY) 90 Capsule 1 5 Active Gabapentin [...] suspected opioid overdose. Seek immediate medical attention. [email or web address]/watch? [email or web address] 2 Each 3 Active documented as of [...] Encounter - Samantha Strange RN - 01/17/2025 2:42 PM EDT Called Gibran. Advised that we can change to video; however, patient would need to come in a few days later if any treatment is planned to have order placed/ sign consent. She states that she will keep appt in person as scheduled. * Telephone Encounter - Angelita Boucher OSA - 01/17/2025 2:34 PM EDT Pt's daughter Gibran called because they would like to switch her mom's danielle. To a video call, since she just had rad. And she is not feeling great. Please call her at your best convenience time. documented in this encounter Plan of Treatment Upcoming Encounters Date Type Department Care Team (Late st Contact Info) Description 01/19/2025 11:30 AM EDT Office Visit Hematology/Oncology [address] [place] [phone] Tunde Plunkett MD 200 [facility] [place] [address] 02/10/2025 1:00 PM EDT Office Visit Hematology/Oncology [facility] 200 [facility] [place] [phone] Tunde Plunkett MD [address] [place] [address] [place] [address] 02/25/2025 11:00 AM EDT Office Visit Family [address] [phone] Jay Gonzales MD [address] [place] [phone] Scheduled Procedures Name Priority Associated Diagnoses [...] Advance Directives occurred with: Patient Care Teams Motor Builder Assembler Relationship Specialty Start Date End Date Jay Gonzales MD [address] [place] [address] [place] [phone] PCP - General Family Medicine 09/13/22 documented as of this encounter
--- OUTSIDE RECORDS SUMMARY | 2025-02-12 16:10 | External Medical Summary | Summary of Care ---
Author Name Unknown Organization [facility] Address [address] [place] [address] Phone [phone] Care Team Providers Care Rolled Gold Plater Name Role Phone Jay Gonzales MD Primary Care [facility]vi [facility] Encounter Details Date Type Department Care Team (Late st Contact Info) Description 01/18/2025 Orders Only Radiation Oncology, [place] [address] [place], [place] [phone] Vin Long MD [address] [place] [address] Allergies No known active allergiesdocumented as of [...] NOT CUT, CRUSH OR CHEW (TAKE WITH [id number] DAILY) 90 Capsule 1 5 Active Gabapentin [...] suspected opioid overdose. Seek immediate medical attention. [email or web address]? [email or web address] 2 Each 3 5 Active documented as [...] State Maira Spencer [address] [phone] Tunde Plunkett MD [address] [place] [address] 02/10/2025 1:00 PM EDT Office Visit Hematology/Oncology [facility] [place] 200 [facility] [place] [address] Tunde Plunkett MD 200 [facility] [place] [address] 02/25/2025 11:00 AM EDT Office Visit [facility] [address] [place] [phone] Jay Gonzales MD [address] [place] [phone] Scheduled Procedures Name Priority Associated Diagnoses [...] Procedure Name Priority Date/Time Associated Diagnosis Comments RAD ONC ARIA COURSE SUMMARY Routine 01/18/2025 10:55 AM EDT documented in this encounter Results * RAD ONC ARIA COURSE SUMMARY (01/18/2025 10:55 AM EDT) Course ID 1-Bone multiple [facility] Course Intent Palliative [facility] Course Start Date 01/13/2025 8:56 AM [facility] Course End Date 01/18/2025 10:55 AM [facility] Course First Treatment Date 01/14/2025 1:53 PM [facility] Course Last Treatment Date 01/14/2025 1:53 PM [facility] Course Elapsed Days 0 [facility] Reference Point ID [id number] [facility] Reference Point Dosage Given to Date 8 Gy [facility] Plan ID PD_SH/RB_HM_A [facility] Plan Name PD_SH/RB_HM_A [facility] Plan Fractions Treated to Date 1 [facility] Plan Total Fractions Prescribed 1 [facility] Plan Prescribed Dose Per Fraction 8 Gy [facility] Plan Total Prescribed Dose 800 cGy [facility] Plan Primary Reference Point [id number] [facility] 01/18/2025 10:5 5 AM EDT us No Physician Data Unknown DRESSINGS Final Result [facility] documented in this encounter Additional Health Concerns [...] Advance Directives occurred with: Patient Care Teams Rolled Gold Plater Relationship Specialty Start Date End Date Jay Gonzales MD [address] [place] [address] [phone] PCP - General Family Medicine 09/13/22 documented as of this encounter
--- OUTSIDE RECORDS SUMMARY | 2025-02-12 16:10 | External Medical Summary | Summary of Care ---
Author Name Unknown Organization [facility] Address [address] [place] [address] Phone [phone] Care Team Providers Care Teaching Fellow Name Role Phone Jay Gonzales MD Primary Care Provi [facility] Reason for Visit * Reason Onset Date Comments Precert Future 01/19/2025 kat Espinosa Encounter Details Date Type Department Care Team (Late st Contact Info) Description 01/19/2025 Telephone Hematology/Oncology Treatment, [place] [address] [place] [address] Tunde Plunkett MD [address] [place] [address] Precert Future (Tecisabel wattrabev) Allergies No known [...] NOT CUT, CRUSH OR CHEW (TAKE WITH [id number] DAILY) 90 Capsule 1 5 Active Gabapentin [...] suspected opioid overdose. Seek immediate medical attention. [email or web address]? [email or web address] 2 Each 3 5 Active Morphine Sulfate [...] PM EDT Order received for teckrista wattbev. [employer] plan built and routed for signature. Waiting for auth. Consent signed 01/19/25. Nurse education 01/21/25. Patient will need hep B labs- Dr Plunkett would also like 1x AFP. PET 01/26/25. Mediport ordered- not yet scheduled (can start prior to mediport placement). Patient is seeing [facility] rad/onc next week for radiation to skull. Per Dr Plunkett, ok to start before radiation is complete/ while patient is still receiving radiation. documented in this encounter Plan of Treatment Upcoming Encounters Date Type Department Care Team (Late st Contact Info) Description 01/21/2025 12:00 PM EDT Pt Ed by Nurse Hematology/Oncology [facility] [address] [place] [phone] Nurse Denia Hem Onc [facility] [address] [place] [address] 01/26/2025 9:45 AM EDT Imaging Radiology, [address] [place] [address] 02/10/2025 1:00 PM EDT Office Visit Hematology/Oncology [facility] [place] 200 [facility] [place] [address] Tunde Plunkett MD 200 [facility] [place] [address] 02/25/2025 11:00 AM EDT Office Visit [address] [phone] Jay Gonzales MD [address] [place] [phone] Scheduled Orders Name Type Priority Associated Diagnoses [...] Advance Directives occurred with: Patient Care Teams Teaching Fellow Relationship Specialty Start Date End Date Jay Gonzales MD [address] [place] [phone] PCP - General Family Medicine 09/13/22 documented as of this encounter
--- OUTSIDE RECORDS SUMMARY | 2025-02-12 16:10 | External Medical Summary | Summary of Care ---
Author Name Unknown Organization [facility] Address [address] [place] [address] Phone [phone] Care Team Providers Care Tile Layer Drainage Name Role Phone Jay Gonzales MD Primary Care Provi [facility] Reason for Visit * Reason Onset Date Comments Precert Future 01/19/2025 kat Espinosa Encounter Details Date Type Department Care Team (Late st Contact Info) Description 01/19/2025 Telephone Hematology/Oncology Treatment, [place] [address] [place] [address] Tunde Plunkett MD [address] [place] [address] Precert Future (Tecisabel wattrabev) Allergies No known [...] NOT CUT, CRUSH OR CHEW (TAKE WITH [id number] DAILY) 90 Capsule 1 5 Active Gabapentin [...] suspected opioid overdose. Seek immediate medical attention. [email or web address]? [email or web address] 2 Each 3 5 Active Morphine Sulfate [...] PM EDT Order received for teckrista wattbev. [place] plan built and routed for signature. Waiting for auth. Consent signed 01/19/25. Nurse education 01/21/25. Patient will need hep B labs- Dr Plunkett would also like 1x AFP. PET 01/26/25. Mediport ordered- not yet scheduled (can start prior to mediport placement). Patient is seeing [facility] rad/onc next week for radiation to skull. Per Dr Plunkett, ok to start before radiation is complete/ while patient is still receiving radiation. documented in this encounter Plan of Treatment Upcoming Encounters Date Type Department Care Team (Late st Contact Info) Description 01/21/2025 12:00 PM EDT Pt Ed by Nurse Hematology/Oncology [facility] Den[place] [address] [place] [phone] Nurse Denia Hem Onc [facility] [address] [place] [address] 01/26/2025 9:45 AM EDT Imaging Radiology, [address] [place] [address] 02/10/2025 1:00 PM EDT Office Visit Hematology/Oncology [facility] [place] 200 [facility] [place] [address] Tunde Plunkett MD 200 [facility] [place] [address] 02/25/2025 11:00 AM EDT Office Visit [address] [phone] Jay Gonzales MD [address] [place] [phone] Scheduled Orders Name Type Priority Associated Diagnoses [...] Advance Directives occurred with: Patient Care Teams Tile Layer Drainage Relationship Specialty Start Date End Date Jay Gonzales MD [address] [place] [phone] PCP - General Family Medicine 09/13/22 documented as of this encounter
--- OUTSIDE RECORDS SUMMARY | 2025-02-12 16:10 | External Medical Summary | Summary of Care ---
Author Name Unknown Organization [facility] Address [address] [facility] [place] [address] Phone [phone] Care Team Providers Care Field Training Manager Name Role Phone Jay Gonzales MD Primary Care [facility] Encounter Details Date Type Department Care Team (Late st Contact Info) Description 01/19/2025 Telephone Hematology/Oncology [facility] Denia [place] [address] [place] [phone] Tunde Plunkett MD [address] [facility] [place] [phone] Allergies No known active allergiesdocumented as of this encounter (statuses as of 01/19/2025) Medications Multiple Vitamins-Minera ls (CENTRUM ADULTS) TABS [...] NOT CUT, CRUSH OR CHEW (TAKE WITH [phone] DAILY) 90 Capsule 1 5 Active Gabapentin [...] suspected opioid overdose. Seek immediate medical attention. [email or web address] 2 Each 3 5 Active Morphine Sulfate [...] as of this encounter (statuses as of 01/19/2025) Active Problems Problem Noted Date Diagnosed Date [...] as of this encounter (statuses as of 01/19/2025) Resolved Problems Problem Noted Date Diagnosed Date Resolved Date Acute hypoxic respiratory failure 01/06/2025 01/07/2025 Cholelithiasis 01/06/2025 01/13/2025 OTHER 11/15/2009 08/20/2018 Overview (11/20/2009): Genotype 1a Chronic hepatitis C 09/21/2009 08/20/20 18 documented as of this encounter (statuses as of 01/19/2025) Immunizations Name Administration Dates Next Due TDAP, [...] Telephone Encounter - Gaby Urena OSA - 01/19/2025 12:32 PM EDT IR VENOUS ACCESS MEDIPORT [IRMEDIPORT] (Order [id number] documented in this encounter Plan of Treatment Upcoming Encounters Date Type Department Care Team (Late st Contact Info) Description 01/21/2025 12:00 PM EDT Pt Ed by Nurse Hematology/Oncology [place] [address] [place] [phone] Nurse Denia Hem Onc [facility] [address] [place] [address] 01/26/2025 9:45 AM EDT Imaging Radiology, [place] [address] [place] [address] 02/10/2025 1:00 PM EDT Office Visit Hematology/Oncology [place] [address] [place] [phone] Tunde Plunkett MD [address] [place] [id number] 02/25/2025 11:00 AM EDT Office Visit Family [address] [phone] Jay Gonzales MD [address] [place] [phone] Scheduled Procedures Name Priority Associated Diagnoses Date/Ti [...] Advance Directives occurred with: Patient Care Teams Field Training Manager Relationship Specialty Start Date End Date Jay Gonzales MD [address] [place] [phone] PCP - General Family Medicine 09/13/22 documented as of this encounter
--- OUTSIDE RECORDS SUMMARY | 2025-02-12 16:11 | External Medical Summary | Summary of Care ---
Author Name Unknown Organization [facility] Address [address] [place] [address] Phone [phone] Care Team Providers Care Order Picker/Assembler Name Role Phone Kalani Gonzales MD Primary Care Provi [facility] Reason for Visit * Reason Comments transfer of records * Auth/Cert Specialty Diagnoses / Procedures Referred By Vaibhav roldan Referred To Contact Diagnoses Cirrhosis of liver (HCC) Fevers, elevated LFT, pleural effusions Kori Xiao DO [address] [place] [address] Phone: tel: fax: [facility]) Emergency Department ([facility]) [address] [place] [address] Phone: tel: fax: Referral ID Status Reason Start Date Expiration Date Visits Re quested Visits Authorized [id number] Encounter Details Date Type Department Care Team (Latest Contact Info) Description 01/06/2025 2:06 AM EDT - 01/14/2025 4:38 PM EDT Hospital Encounter [facility], [facility] [address], [place] [id number] Martínez Trivedi DO [address] [place] [address] Kori Xiao DO [address] [facility] [place] [address] Brian Anand MD [address] [facility] [place] [address] Taran Hines MD [address] [place] [address] Gibran Vital, DO [address] [place] [address] Rema Christianson, DO [address] [place], [place] [id number] EKG Report Discharge Disposition: Home with Services Allergies No known active allergiesdocumented as of this encounter (statuses as of 01/15/2025) Medications Multiple Vitamins-[place] als (CENTRUM ADULTS) TABS Take 1 Tablet [...] NOT CUT, CRUSH OR CHEW (TAKE WITH [id number] DAILY) 90 Capsule 1 11/15/19 25 Active [...] Packet 3 5 4:09 PM EDT 01/15/20 25 Active Fidaxomicin 200 MG Oral Tablet (Dificid)Indic ations:C. difficile diarrhea Take 1 Tablet by mouth in the morning and 1 Tablet before bedtime. 10 Tablet 5 4:09 PM EDT 01/15/20 25 Active Ondansetron HCl 4 MG Oral Tablet Take 1 Tablet by mouth every 8 hours as needed for Nausea. 20 Tablet 5 4:09 PM EDT 01/15/20 25 Active Naloxone HCl 4 MG/0.1ML Nasal Liquid (Narcan Nasal) Administer 1 spray into 1 nostril for suspected opioid overdose. Seek immediate medical attention. [email or web address] Each 3 01/15/20 25 Active Vancomycin HCl 125 MG Oral Capsule (Vancocin)Heather cations:Clostr idium difficile enteritis Take 1 Capsule by mouth every 6 hours. 56 Capsule 12/15/19 25 025 Discontinued(Mo dication List Clean Up) Fidaxomicin 200 MG Oral Tablet (Dificid)Indic ations:C. difficile diarrhea Take 1 Tablet by mouth in the morning and 1 Tablet before bedtime. 20 Tablet 01/01/20 25 025 Discontinued Morphine Sulfate 15 MG Oral Tablet (Msir) Take one-half (0.5) tablets by mouth every 4 hours as needed for moderate or severe pain. 90 Tablet 01/15/20 25 025 Discontinued documented as of this encounter (statuses as of 01/15/2025) Active Problems Problem Noted Date Diagnosed Date [...] as of this encounter (statuses as of 01/15/2025) Resolved Problems Problem Noted Date Diagnosed Date Resolved Date Acute hypoxic respiratory failure 01/06/2025 01/07/2025 Cholelithiasis 01/06/2025 01/13/2025 OTHER 11/15/2009 08/20/2018 Overview (11/20/2009): Genotype 1a Chronic hepatitis C 09/21/2009 08/20/20 18 documented as of this encounter (statuses as of 01/15/2025) Immunizations Name Administration Dates Next Due TDAP, [...] Sign Reading Time Taken Comments Blood Pressure 119/74 01/14/2025 11:22 AM EDT Pulse 89 01/14/2025 11:22 AM EDT Temperature 36.8 °C (98.2 °F) 01/14/2025 11:22 AM E DT Respiratory Rate 18 01/14/2025 11:22 AM EDT Oxygen Saturation 95% 01/14/2025 11:22 AM EDT Inhaled Oxygen Concentration - - Weight 77.2 kg (170 lb 3.1 oz) 01/14/2025 9:44 A M EDT Height 160 cm (5' 3") 01/06/2025 6:09 PM EDT Body Mass Index 30.15 01/06/2025 6:09 PM EDT documented in this [...] Discharge Instructions * Discharge Instr - AVS* Lesley Tejada, - 01/13/2025 2:46 PM EDT Discharge Date: 01/14/2025 The information below provides you with the instructions and the list of medications you need to betaking following discharge from the hospital. If you have any questions, please ask before leaving. If you have questions after leaving, you can reach us at the numbers below. YOUR HOSPITAL PROVIDERS: Discharging Provider: Dr Christianson Resident Provider: Dr Tejada Provider Department: Hospital Medicine IF YOU HAVE QUESTIONS: - To reach this Provider Friday through Friday (8:00 AM to 4:30 PM) for any questions or test results: Call [phone] - For after-hours concerns: Call [phone] and have your provider paged, or the provider on callfor the Department of Hospital Medicine paged. - Please note, the discharging provider will not be able to provide you with any medications refills. Please discuss these with your primary care provider. FOR WORSENING SYMPTOMS: - If you have new symptoms, or your symptoms get worse, please contact your Discharge Provider or Primary Care Provider (PCP). If these providers are not available, you can go to your local [facility] during their business hours. - In an EMERGENCY situation: Call [phone] or go to the nearest emergency room. A BRIEF SUMMARY OF YOUR HOSPITAL STAY: You were admitted to the hospital in [place] after you had some abdominal pain, and you were found to have a thick gallbladder. After antibiotics, you were feeling better and your pain was much improved. Unfortunately, the scans also showed that you had spread of your cancer. The MRI brain showed that there were no brain mets, and IR was able to do a biopsy of the cancer in your bone. While you were here, radiation oncology saw you and helped make a plan for your radiation treatment. For chemotherapy, you will be seen outpatient by Oncology. Also, your diarrhea improved with the cholestyramine we were giving you. Your are being discharged to: home Your main diagnosis at discharge was: Acute Cholecystitis, Metastatic Spread of Cancer Operations & Procedures performed: IR biopsy, radiation treatment Complications: None Inpatient test results that are pending at discharge: Bone Biopsy Advance Directive Documented: Advance Directive Does the Patient have an Advance Directive? No YOUR FOLLOW UP APPOINTMENTS: Primary Care Provider Information: PCP: KALANI GONZALES [address] [place] [phone] An appointment was requested with Radiation Oncology, Medical Oncology, Palliative. (Please take this form to this visit with your primary care physician.) Future Appointments-next 60 days Date/Time Provider Specialty Dept Phone 01/14/2025 2:00 PM ROOM C [facility] Radiation Oncology [phone] 01/17/2025 2:30 PM Sg Storm PA-C Orthopedics Arrive at: Patient's Home [phone] 02/10/2025 1:00 PM (Arrive by 12:45 PM) Tunde Plunkett MD Hematology Oncology [phone] 02/25/2025 11:00 AM (Arrive by 10:45 AM) Kalani Gonzales MD Family Medicine [phone] INSTRUCTIONS: Diet: as tolerated Activity: as tolerated Call your primary care physician or seek medical attention if you have fevers, chills, have chest pain, shortness of breath, non-stop vomiting or diarrhea, confusion. If you feel suicidal or homicidal, please call the crisis hotline at [phone] ([phone]). MEDICATION CHANGES START TAKING THE FOLLOWING MEDICINES: 1. Cholestyramine (this is a diarrhea medication) - Take one packet, twice per day 2. Morphine (this is a pain medication) - Take 7.5 mg, every 6 hours, and every four hours as needed 3. Zofran (this is a nausea medication) - Take 4 mg, every 8 hours as needed for nausea 4. Narcan (this is a medication in case your breathing slows down a lot from morphine) - spray into your nose as needed. You received a letter on how to use it - Please pick this medication up at [facility] or any other major pharmacy, it is unfortunately expensive otherwise CONTINUE TAKING ALL OTHER MEDICINES PRESCRIBED documented in this encounter Progress Notes * Vin Long MD - 01/13/2025 8:32 AM EDT Rad Onc f/u Diagnosis: 64 yo female with a history of Hep C Cirrhosis (Child Caldera B7) diagnosed with HCC via MRI and elevated AFP (initial AFP 678.6 ng/ml on 10/11/24, most recent AFP 10,274), unable to receive treatment due to C.Diff infection, here with painful lytic lesions in the R 6th rib and scapula and an asymptomatic but locally advanced left frontal calvarial met. Interval history: 01/11/2025 last seen by Rad Onc 01/12/2025 MRI brain: 1. Expansile, enhancing osseous metastasis arising from the left frontal calvarium with invasion ofthe overlying subcutaneous soft tissues and underlying dura. No convincing intradural extension of tumor. 2. Focal tumoral invasion of the superior sagittal sinus. 3. No brain metastases are demonstrated. 01/12/2026 Right scapular biopsy Her right shoulder has discomfort. She is unable to lift her arm above her head. PE: alert and oriented; palpable calvarial met is not tender, neither does it invade the skin Assessment: The patient is an appropriate candidate for palliative radiotherapy. In her case, I would favor a single fraction to the two bone mets and five fractions to the skull met. Given her likely discharge, and the distance from here to home, treating the painful bone mets now, and treating the skull met in [place] as an outpatient, would be preferred. The rationale, the risks, the benefits, the alternatives, and the personnel of radiotherapy were explained to the patient. The role of other modalities, including surgery, systemic therapy, medical management, and observation, were also discussed. The natural history of the patient's disease was explained. All questions were answered and the patient expressed understanding of the relevant issues. The patient is in agreement with this plan. The informed consent form was signed. Plan: Simulation today; single fraction radiotherapy tomorrow F/u with Dr. Plunkett in [place] 02/10/2025. Referral to [facility] I spent a total of 60 minutes on the date of service in preparation, delivery, and documentation ofthe care provided to Neha Marks excluding any time spent in the performance of separately billed services or time spent by another provider/QHP. * Leader, Rema Boothe DO - 01/13/2025 6:44 AM EDT Images from the original note were not included. [facility] G303/A INTERVAL HISTORY: Patient seen and examined this morning. She is comfortable today and has some mild pain in her shoulder from the bone biopsy. Otherwise she has not had any diarrhea and feels her stools are more formed. Objective Physical Exam Most Recent Vital Signs: BP: 136 mmHg/67 mmHg (01/13/25 0859) Pulse: 105 (01/13/25 0859) Resp: 16 (01/13/25621) Temp: 36.39 C (01/13/25621) Temp Summary: Temp Min: 36.4 °C (97.5 °F) Max: 36.8 °C (98.2 °F) SpO2: 95 % (01/13/25 06) O2 flow rate: 3 L/MIN (01/12/25 0930) Supplemental O2 Delivery: Room Air, None (01/13/25621) General: Patient in no apparent distress, chronically ill appearing HEENT: normocephalic, atraumatic, no scleral icterus Heart: regular rate and rhythm; S1 and S2 present; no murmurs, rubs or gallops. Pulmonary: LCTAB, no crackles in lower lung lobes Abdomen: Soft, non-tender, non-distended. No rebound or guarding. Extremities: 1+ pitting edema present at lower extremity bilaterally, no crepitus or swelling around shoulder Skin: [place], warm, no wounds or lesions present. Neuro: AAOx3. No gross motor or sensory deficits. Psych: Appropriate mood and affect Peripheral Line Left;Lower Arm 22 Gauge (Active) Number of days: 6 STUDIES: Encounter Orders Labs and other studies reviewed with pertinent findings noted below: Latest Reference Range & Units 01/13/25 06:43 SODIUM 135 - 146 mmol/L 137 POTASSIUM 3.5 - 5.1 mmol/L 3.3 (L) CHLORIDE 98 - 107 mmol/L 99 CO2 22 - 32 mmol/L 28 BUN 6 - 20 mg/dL 8 CREATININE 0.5 - 1.0 mg/dL 0.6 EGFR >=60 mL/min >90 ANION GAP 7 - 15 mmol/L 10 GLUCOSE 70 - 120 mg/dL 157 (H) CALCIUM 8.4 - 10.2 mg/dL 9.2 (L): Data is abnormally low (H): Data is abnormally high Latest Reference Range & Units 01/13/25 06:43 WBC 4.00 - 10.80 K/uL 5.21 RBC 3.85 - 5.15 M/uL 3.51 HGB 12.0 - 15.3 g/dL 10.1 (L) HCT 36.0 - 45.2 % 33.0 (L) MCV 81.5 - 97.5 fL 94.0 MCH 27.0 - 34.0 pg 28.8 MCHC 32.0 - 36.0 g/dL 30.6 RDW 11.5 - 15.5 % 16.3 PLT 140 - 400 K/uL 81 (L) MPV 6.6 - 11.1 fL 12.9 (L): Data is abnormally low Latest Reference Range & Units 01/13/25 06:43 Albumin 3.8 - 5.0 g/dL 3.3 (L) AST 10 - 35 U/L 61 (H) ALT 10 - 35 U/L 35 Alkaline Phosphatase 35 - 130 U/L 501 (H) Bilirubin, Total <=1.2 mg/dL 0.7 Bilirubin, Direct 0.0 - 0.3 mg/dL 0.4 (H) (L): Data is abnormally low (H): Data is abnormally high Assessment and Plan IMPRESSION : Principal Problem (Resolved): Acute hypoxic respiratory failure (HCC) Active Problems: Generalized anxiety disorder Other cirrhosis of liver (HCC) Mood disorder (HCC) Portal hypertension (HCC) Thrombocytopenia (HCC) Major depressive disorder with single episode HTN, goal below 130/80 Elevated transaminase level HCC (hepatocellular carcinoma) (HCC) 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) Palliative care encounter Pain from bone metastases (HCC) 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 Course complicated by discovery of right 6th rib lesion, right scapular lesion, left frontal bone mass, right pleural lesion all of which are concerning for metastasis of her hepatocellular carcinoma. Hepatocellular carcinoma with Mets New pleural mass with invasion and destruction of the right 6th rib, new right scapular lesion, andnew left frontal bone mass with extension into the overlying scalp and into the underlying epiduralregion with a mild mass effect on the frontal lobe; all of which are concerning for metastasis if hepatocellular carcinoma. Radiation Oncology consulted - tentative planning session today with procedure tomorrow Outpatient oncology follow-up MRI and MRV brain showing no metastasis other than the large bone lesion seen on CT Lidocaine patch for shoulder pain Palliative Medicine following, appreciate recommendations Acute Cholecystitis Hepatic function continues to improve. Gastroenterology will not be performing endoscopic intervention at this time. We will continue with medical therapy for now. Finished course of Zosyn (01/11) Gastroenterology following - defer endoscopic intervention as hepatic function has stabilized General Surgery following - patient not a candidate for cholecystectomy Decompensated cirrhosis Grade 1 esophageal varices Moderate volume ascites New onset ascites is concerning for progression of cirrhosis versus malignant ascites in the setting of hepatocellular carcinoma. Unable to get diagnostic paracentesis due to lack of safe target. Lowsuspicion for spontaneous bacterial peritonitis/secondary bacterial peritonitis on admission, but patient has received 5 days of Zosyn which would adequately cover in the case of SBP. Gastroenterology following, appreciate recommendations MELD 3.0: 11 Acute hypoxic respiratory failure, resolved Anasarca Respiratory failure was likely secondary to volume overload in the setting of cirrhosis. Patient has been diuresed over the last 2 days and has had significant improvement in shortness of breath and cough. We will continue to diurese as she continues to have significant lower extremity edema. Continue O2 supplementation as needed, wean as able Consider lasix 40 daily at discharge DuoNebs RESPQID Clostridium difficile infection Diarrhea - improved Diarrhea improving, patient has not had a bowel movement since yesterday. Stools have been more formed Continue fidaxomicin 200 mg twice daily Continue cholestyramine q.12 hours PHARMACOLOGIC VTE PROPHYLAXIS: Enoxaparin CODE STATUS: Full Code EXPECTED DISCHARGE DATE: 01/13/2025 Patient was discussed with Dr Christianson. Lesley Tejada DO I saw and evaluated the patient today. I have reviewed the resident/fellow physician note and agree. I spent a total of 51 minutes coordinating, documenting, and providing care for this patient excluding time spent in the performance of separately billed services or time spent by another provider/QHP. -Patient doing well after biopsy yesterday. Rad onc to perform simulation today and single fractionXRT of the scapula tomorrow. Will plan for additional treatment to the skull lesion as an outpatient -Will ask for final outpatient palliative med recommendations Dispo: discharge to home tomorrow after radiation therapy * Rema Christianson DO - 01/12/2025 6:22 AM EDT Images from the original note were not included. [facility] G303/A INTERVAL HISTORY: Patient seen and examined this morning. Overnight, ID dropped a note recommending Zosyn until we have source control, however there is no plan to do any procedure and the patient has been afebrile with good pain management. Plan for today is to take the patient for IR biopsy. She has not had a bowel movement since yesterday, and feels that her stools were more formed yesterday. Complains of some shoulder pain where her scapular lesion is. Objective Physical Exam Most Recent Vital Signs: BP: 98 mmHg/86 mmHg (01/12/25199) Pulse: 98 (01/12/25199) Resp: 18 (01/12/25199) Temp: 36.67 C (01/12/25199) Temp Summary: Temp Min: 36.2 °C (97.2 °F) Max: 37.1 °C (98.8 °F) SpO2: 92 % (01/12/25199) O2 flow rate: 0 L/MIN (01/11/253) Supplemental O2 Delivery: Room Air, None (01/12/25199) General: Patient in no apparent distress, chronically ill appearing HEENT: normocephalic, atraumatic, no scleral icterus Heart: regular rate and rhythm; S1 and S2 present; no murmurs, rubs or gallops. Pulmonary: minimal crackles in lower lung lobes Abdomen: Soft, non-tender, non-distended. No rebound or guarding. Extremities: 3+ pitting edema present at lower extremity bilaterally Skin: [place], warm, no wounds or lesions present. Neuro: AAOx3. No gross motor or sensory deficits. Psych: Appropriate mood and affect, not tearful Peripheral Line Left;Lower Arm 22 Gauge (Active) Number of days: 5 STUDIES: Encounter Orders Labs and other studies reviewed with pertinent findings noted below: Latest Reference Range & Units 01/12/25 05:52 SODIUM 135 - 146 mmol/L 141 POTASSIUM 3.5 - 5.1 mmol/L 4.0 CHLORIDE 98 - 107 mmol/L 101 CO2 22 - 32 mmol/L 30 BUN 6 - 20 mg/dL 10 CREATININE 0.5 - 1.0 mg/dL 0.7 EGFR >=60 mL/min >90 ANION GAP 7 - 15 mmol/L 10 GLUCOSE 70 - 120 mg/dL 120 CALCIUM 8.4 - 10.2 mg/dL 9.2 Latest Reference Range & Units 01/12/25 05:52 WBC 4.00 - 10.80 K/uL 4.90 RBC 3.85 - 5.15 M/uL 3.46 HGB 12.0 - 15.3 g/dL 9.9 (L) HCT 36.0 - 45.2 % 32.4 (L) MCV 81.5 - 97.5 fL 93.6 MCH 27.0 - 34.0 pg 28.6 MCHC 32.0 - 36.0 g/dL 30.6 RDW 11.5 - 15.5 % 16.6 PLT 140 - 400 K/uL 82 (L) MPV 6.6 - 11.1 fL 12.6 (L): Data is abnormally low Latest Reference Range & Units 01/12/25 05:52 Albumin 3.8 - 5.0 g/dL 3.7 (L) AST 10 - 35 U/L 68 (H) ALT 10 - 35 U/L 37 (H) Alkaline Phosphatase 35 - 130 U/L 507 (H) Bilirubin, Total <=1.2 mg/dL 0.8 Bilirubin, Direct 0.0 - 0.3 mg/dL 0.5 (H) (L): Data is abnormally low (H): Data is abnormally high MRI/MRV Brain 01/12 IMPRESSION 1. Expansile, enhancing osseous metastasis arising from the left frontal calvarium with invasion ofthe overlying subcutaneous soft tissues and underlying dura. No convincing intradural extension of tumor. 2. Focal tumoral invasion of the superior sagittal sinus. 3. No brain metastases are demonstrated. 4. Additional findings as above. 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) Decompensated HCV cirrhosis (HCC) Metastasis to bone (HCC) DIFFERENTIAL AND PLAN: Neha Marks is a 64 year old female with a past medical history of hepatocellular carcinoma, decompensated cirrhosis with grade 1 esophageal varices (2021) and ascites, history of HCV infection status post treatment with Harvoni, Clostridium difficile on fidaxomicin who presented as a transfer from [facility] Emergency Department for acute cholecystitis in the setting of decompensated cirrhosis with ascites, treated conservatively with Zosyn. Course complicated by discovery of right 6th rib lesion, right scapular lesion, left frontal bone mass, right pleural lesion all of which are concerning for metastasis of her hepatocellular carcinoma. Acute Cholecystitis Hepatic function continues to improve. Gastroenterology will not be performing endoscopic intervention at this time. We will continue with medical therapy for now. Finished course of Zosyn Gastroenterology following, appreciate recommendations Defer endoscopic intervention as hepatic function has stabilized General Surgery following, appreciate recommendation Patient not a candidate for cholecystectomy Hepatocellular carcinoma Right pleural mass Right 6th rib lesion Right scapular lesion Left frontal bone lesion New pleural mass with invasion and destruction of the right 6th rib, new right scapular lesion, andnew left frontal bone mass with extension into the overlying scalp and into the underlying epiduralregion with a mild mass effect on the frontal lobe; all of which are concerning for metastasis if hepatocellular carcinoma. Radiation Oncology consulted for possible palliative treatment Interventional Radiology consulted S/p bone biopsy Will determine possibility for Y90 therapy after biopsy Outpatient oncology follow-up Patient will likely need to be presented again at [facility] per Oncology MRI and MRV brain showing no metastasis other than the large bone lesion seen on CT Lidocaine patch for shoulder pain Palliative Medicine following, appreciate recommendations Morphine sulfate 7.5 mg p.o. q.6 hours Morphine 2 mg IV p.r.n. for moderate pain Morphine 4 mg p.r.n. for severe pain (Not Ordered) Naloxone available Zofran 4 mg IV p.r.n. for nausea Further advanced care planning recommended Decompensated cirrhosis Grade 1 esophageal varices Moderate volume ascites New onset ascites is concerning for progression of cirrhosis versus malignant ascites in the setting of hepatocellular carcinoma. Unable to get diagnostic paracentesis due to lack of safe target. Lowsuspicion for spontaneous bacterial peritonitis/secondary bacterial peritonitis on admission, but patient has received 5 days of Zosyn which would adequately cover in the case of SBP. Gastroenterology following, appreciate recommendations MELD 3.0: 11 at 01/12/2025 5:52 AM Calculated from: Serum Creatinine: 0.7 mg/dL (Using min of 1 mg/dL) at 01/12/2025 5:52 AM Serum Sodium: 141 mmol/L (Using max of 137 mmol/L) at 01/12/2025 5:52 AM Total Bilirubin: 0.8 mg/dL (Using min of 1 mg/dL) at 01/12/2025 5:52 AM Serum Albumin: 3.7 g/dL (Using max of 3.5 g/dL) at 01/12/2025 5:52 AM INR(ratio): 1.5 at 01/12/2025 5:52 AM Age at listing (hypothetical): 64 years Sex: Female at 01/12/2025 5:52 AM Acute hypoxic respiratory failure, resolved Anasarca Respiratory failure was likely secondary to volume overload in the setting of cirrhosis. Patient has been diuresed over the last 2 days and has had significant improvement in shortness of breath and cough. We will continue to diurese as she continues to have significant lower extremity edema. Continue O2 supplementation as needed, wean as able 1x Lasix 40 IV ordered, had excellent response to this in the past Consider lasix/spironolactone at discharge DuoNebs RESPQID Clostridium difficile infection Diarrhea - imrpoved Diarrhea improving, patient has not had a bowel movement since yesterday. Stools have been more formed Continue fidaxomicin 200 mg twice daily Continue cholestyramine q.12 hours Chronic Problems: Hypertension/esophageal varices: Continue SHELL TRIM OPERATOR carvedilol 6.25 mg twice daily Mood disorder: Continue SHELL TRIM OPERATOR venlafaxine 225 mg p.o. daily, quetiapine 25 mg p.o. q.h.s. Neuropathy: Continue SHELL TRIM OPERATOR gabapentin 100 mg p.o. three times daily PHARMACOLOGIC VTE PROPHYLAXIS: Enoxaparin CODE STATUS: Full Code EXPECTED DISCHARGE DATE: 01/14/2025 Patient was discussed with Dr Leader. Lesley Tejada, DO I saw and evaluated the patient today. I have reviewed the resident/fellow physician note and agree. I spent a total of 52 minutes coordinating, documenting, and providing care for this patient excluding time spent in the performance of separately billed services or time spent by another provider/QHP. -Underwent IR guided biopsy of scapular lesion today. Will reach out to rad-onc and IR regarding further treatment plans now that biopsy obtained. -Completed 5 day course of zosyn today with resolution of cholecystitis symptoms- will continue to monitor off abx. Per GI and gen surg- no further intervention at this time. Dispo: discharge timing pending rad-onc and IR plans for inpatient treatment, eventual return to home * Polly Rivera CRNP - 01/11/2025 3:59 PM EDT Images from the original note were not included. PROGRESS NOTE - Radiation Medicine Service [facility] [place]-[address] [address] Name: Neha Marks Location: [facility] [place] G303/A Date: 01/11/2025 Time: 3:59 PM OBJECTIVE: Most Recent Vital Signs: BP: 113 mmHg/64 mmHg (01/11/25 1520) Pulse: 90 (01/11/25 1520) Resp: 17 (01/11/25 1520) Temp: 36.78 C (01/11/25 1520) Temp Summary: Temp Min: 36.2 °C (97.2 °F) Max: 37.3 °C (99.1 °F) SpO2: 95 % (01/11/25 1520) O2 flow rate: 1 L/MIN (01/09/25 1036) Supplemental O2 Delivery: Room Air, None (wears 2L with ambulation) (01/10/251999) Vital Signs Last 24 Hours: Systolic BP: Most Recent Systolic BP Av.4 mmHg Min: 113 mmHg Max: 151 mmHg Temperature: Most Recent Temperature Av.7 C Min: 36.22 C Max: 37.28 C Pulse: Pulse Av.2 Min: 90 Max: 104 Respirations: Resp Av.6 Min: 17 Max: 22 SpO2: SpO2 Av.8 % Min: 91 % Max: 95 % LABS: Labs reviewed as indicated below: IMAGING: I personally reviewed the following images and diagnostic studies. (Impression copies from medical chart) 01/10/[address] HEAD/BRAIN W CONTRAST: 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 There is associated extension into the overlie scalp and into the underlying epidural region with mild mass effect on the left frontal lobe brain parenchyma. No definite additional metastatic lesions. MRI without with contrast offers greater s ensitivity and could be obtained for further assessment, if not contraindicated. There is likely direct invasion of the anterior superior sagittal sinus. Recommend CT venogram to exclude venous thrombosis. Short contrast enhance CT interval follow-up is recommended. 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 * Cheng Mcnally DO - 01/11/2025 3:36 PM EDT Images from the original note were not included. [facility] G303/A INTERVAL HISTORY: ON: No acute events Evaluated at bedside this morning. This morning she said her breathing felt worse. She was again tearful as I told her about the findings of her CT head/brain from overnight, which showed that she had a 3 x 3 mass in the left frontal bone with mild mass effect. Otherwise she stated that her abdominal pain has improved. Objective Physical Exam Most Recent Vital Signs: BP: 113 mmHg/64 mmHg (01/11/25 1520) Pulse: 90 (01/11/25 1520) Resp: 17 (01/11/25 1520) Temp: 36.78 C (01/11/25 1520) Temp Summary: Temp Min: 36.2 °C (97.2 °F) Max: 37.3 °C (99.1 °F) SpO2: 95 % (01/11/25 1520) O2 flow rate: 1 L/MIN (01/09/25 1036) Supplemental O2 Delivery: Room Air, None (wears 2L with ambulation) (01/10/251999) Vital Signs Last 24 Hours: Systolic BP: Most Recent Systolic BP Av.4 mmHg Min: 113 mmHg Max: 151 mmHg Temperature: Most Recent Temperature Av.7 C Min: 36.22 C Max: 37.28 C Pulse: Pulse Av.2 Min: 90 Max: 104 Respirations: Resp Av.6 Min: 17 Max: 22 SpO2: SpO2 Av.8 % Min: 91 % Max: 95 % Intake & Output Summary (Last 24 hours): Intake/Output Summary (Last 24 hours) at 01/11/2025 1557 Last data filed at 01/11/2025 1521 Gross per 24 hour Intake -- Output 1600 ml Net -1600 ml Net IO Since Admission: 912.71 mL [01/07/25 1459] Last BM: Last Bowel Movement: 01/11/25 (01/11/25 1453) Stool Description: Small;Loose;Brown (01/11/25 1453) Constitutional: Chronically ill-appearing woman in no acute distress. HEENT: No scleral icterus appreciated. Atraumatic, EOMI. Cardiovascular: Normal rate and rhythm. No murmurs, rubs, or gallops. Respiratory: Patient tearful, auscultation complicated. Minimal crackles. Otherwise clear to auscultation. GI: Distended. Nontender. No guarding or rigidity. Musculoskeletal: 2+ pitting edema to the proximal novoa. Neurologic: No focal sensory or motor deficits noted on exam. Skin: No rash or lesions. No jaundice. Psychiatric: Appropriate Peripheral Line Left;Lower Arm 22 Gauge (Active) Number of days: 4 STUDIES: Encounter Orders Labs and other studies reviewed with pertinent findings noted below: Sodium 142 Potassium 3.6 Creatinine 0.6 INR 1.4 WBC 4.46 K Hemoglobin 10.0, stable Platelets 65 K, improving AST 67, stable ALT 42, stable Alkaline phosphatase 510, stable Total bilirubin 1.0, slowly trending up Direct bilirubin 0.5, slowly trending up Radiographic Studies (last 72 hours): reviewed. CT HEAD/BRAIN W CONTRAST Result Date: 01/11/[address] HEAD/BRAIN W CONTRAST: 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 Thereis associated extension into the overlie scalp and into the underlying epidural region with mild mass effect on the left frontal lobe brain parenchyma. No definite additional metastatic lesions. MRI without with contrast offers greater sensitivity and could be obtained for further assessment, if not contraindicated. There is likely direct invasion of the anterior superior sagittal sinus. Recommend CT venogram to exclude venous thrombosis. Short contrast enhance CT interval follow-up is recommended. Added to [employer] result communication system on 01/11/2025 at 2:08 am. 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) Decompensated HCV cirrhosis (HCC) Metastasis to bone (HCC) DIFFERENTIAL AND PLAN: Neha Marks is a 64 year old female with a past medical history of hepatocellular carcinoma, decompensated cirrhosis with grade 1 esophageal varices (2021) and ascites, history of HCV infection status post treatment with Harvoni, Clostridium difficile on fidaxomicin who presented as a transfer from [facility] Emergency Department for acute cholecystitis in the setting of decompensated cirrhosis with ascites, treated conservatively with the Zosyn. Course complicated by discovery of right 6th rib lesion, right scapular lesion, left frontal bone mass, right pleural lesion all of which are concerning for metastasis of her hepatocellular carcinoma. Planned for bone biopsy tomorrow , as well as MR Venogram of the brain and MRI of the brain with contrast. Hemodynamically stable and doing well overall today, off of O2 supplementation. Acute Cholecystitis Hepatic function continues to improve. Gastroenterology will not be performing endoscopic intervention at this time. We will continue with medical therapy for now. Continue Zosyn 4.5 g IV q.8 hours, day 02/21 today Gastroenterology following, appreciate recommendations Defer endoscopic intervention as hepatic function has stabilized General Surgery following, appreciate recommendation Patient not a candidate for cholecystectomy Hepatocellular carcinoma Right pleural mass Right 6th rib lesion Right scapular lesion Left frontal bone lesion New pleural mass with invasion and destruction of the right 6th rib, new right scapular lesion, andnew left frontal bone mass with extension into the overlying scalp and into the underlying epiduralregion with a mild mass effect on the frontal lobe; all of which are concerning for metastasis if hepatocellular carcinoma. Oncology, Radiation Oncology, and Palliative Medicine are consulted, and considerations for future treatment being made. At this time, further workup is required prior to initiating treatment. Patient will require bone biopsy,MR Venogram of the brain to rule out venous sinusthrombosis and MRI of the brain with contrast to rule out brain metastasis. Radiation Oncology consulted for possible palliative treatment Interventional Radiology consulted To perform bone biopsy tomorrow Will determine possibility for Y90 therapy after biopsy as resulted Outpatient Oncology follow-up for consideration of systemic therapy Outpatient oncology follow-up Patient will likely need to be presented again at Tumor Board per Oncology Palliative Medicine following, appreciate recommendations Morphine sulfate 7.5 mg p.o. q.6 hours Morphine 2 mg IV p.r.n. for moderate pain Morphine 4 mg p.r.n. for severe pain (Not Ordered) Naloxone available Zofran 4 mg IV p.r.n. for nausea Further advanced care planning recommended Decompensated cirrhosis Grade 1 esophageal varices Moderate volume ascites New onset ascites is concerning for progression of cirrhosis versus malignant ascites in the setting of hepatocellular carcinoma. Unable to get diagnostic paracentesis due to lack of safe target. Lowsuspicion for spontaneous bacterial peritonitis/secondary bacterial peritonitis on admission, but patient has received 5 days of Zosyn which would adequately cover in the case of SBP. Gastroenterology following, appreciate recommendations Daily MELD 3.0 labs MELD 3.0: 10 at 01/11/2025 6:39 AM Calculated from: Serum Creatinine: 0.6 mg/dL (Using min of 1 mg/dL) at 01/11/2025 6:39 AM Serum Sodium: 142 mmol/L (Using max of 137 mmol/L) at 01/11/2025 6:39 AM Total Bilirubin: 1 mg/dL at 01/11/2025 6:39 AM Serum Albumin: 3.5 g/dL at 01/11/2025 6:39 AM INR(ratio): 1.4 at 01/11/2025 6:39 AM Age at listing (hypothetical): 64 years Sex: Female at 01/11/2025 6:39 AM Acute hypoxic respiratory failure, resolved Anasarca Respiratory failure was likely secondary to volume overload in the setting of cirrhosis. Patient has been diuresed over the last 2 days and has had significant improvement in shortness of breath and cough. We will continue to diurese as she continues to have significant lower extremity edema. Can consider Lasix p.o. and spironolactone at discharge in the setting of cirrhosis Continue O2 supplementation as needed, wean as able DuoNebs RESPQID Clostridium difficile infection Diarrhea Evaluated by Infectious Disease who will leave that diarrhea is not secondary to Clostridium difficile at this point, and who do not believe that she is feeling therapy. Per patient, her stools are starting to become more solid. Pasty stools today. This is encouraging, we will continue to monitor. Gastroenterology recommends trial of cholestyramine for possible bile acid induced diarrhea in the setting of decreased hepatic function. Continue fidaxomicin 200 mg twice daily Start cholestyramine q.12 hours Chronic Problems: Hypertension/esophageal varices: Continue SHELL TRIM OPERATOR carvedilol 6.25 mg twice daily Mood disorder: Continue SHELL TRIM OPERATOR venlafaxine 225 mg p.o. daily, quetiapine 25 mg p.o. q.h.s. Neuropathy: Continue SHELL TRIM OPERATOR gabapentin 100 mg p.o. three times daily Misc: Peripheral Line Left;Lower Arm 22 Gauge (Active) Number of days: 4 Bowel Regimen: N/a, current Clostridium difficile infection Sleep: Not on sleep protocol Deluca: Not indicated Rehab: PT/OT consulted VTE Prophylaxis: Lovenox 40mg q24h Code Status: Full Code Disposition: 3 days Patient will be seen and examined by attending physician, Gibran Vital, DO Cheng Mcnally DO Internal Medicine Resident, PGY-1 This note was completed in part utilizing [employer] Speech Voice Recognition Software. Grammatical errors, random word insertions, pronoun errors and incomplete sentences are an occasional consequence of this system due to software limitations, ambient noise and hardware issues. Please directly address the provider for any questions or concerns about the context, text or information contained within the body of this note. Cosigned by Gibran Vital DO at 01/12/2025 2:09 PM EDT Associated attestation - Gibran Vital DO - 01/12/2025 2:09 PM EDT I saw and evaluated the patient 01/11/25. I have reviewed the resident/fellow physician note and agree. Feeling somewhat better from respiratory complaints and noted that BMs are less watery. Met with Neha, her , and daughter with IM team as well as Palliative to discuss current diagnosis and what further concerns/imaging we are looking to pursue including MRI/MRV. She is understandably very emotional with the current information and feels overwhelmed/confused at times. As she and family were in acute process of understanding the plan and the need for further clarification onher suspected metastatic lesion, we did not address code status or further goals of care at this time. Her goals will likely evolve as her diagnosis becomes more certain. I spent a total of 53 minutes coordinating, documenting, and providing care for this patient excluding time spent in the performance of separately billed services or time spent by another provider/QHP. * Emigdio Hogan DO - 01/11/2025 2:55 PM EDT PROGRESS NOTE - Palliative Medicine [facility] [place]-[address] [address] Name: Neha Marks Location: [facility] [place] G303/A Date: 01/11/2025 Time: 2:08 PM SUBJECTIVE: She reports pain is adequately controlled. She states diarrhea has improved to pastey consistency stools. Goals of care meeting occurred this afternoon with medicine team. Denies N/V. OBJECTIVE: Most Recent Vital Signs: Temp: 36.8 °C (98.2 °F) Pulse: 95 BP: 135/61 Resp: 18 SpO2: 92% Wt: 86 kg (189 lb 9.5 oz) Vital Signs Last 24 Hours: Constitutional: (+) ill appearing Chest: normal respiratory effort Extremities: no edema Musculoskeletal: (+) rib pain, scapular pain Skin: warm, dry, intact: Neuro: alert, oriented to person, place, and time LABS REVIEWED: yes, reviewed Latest Reference Range & Units 01/11/25 06:39 SODIUM 135 - 146 mmol/L 142 POTASSIUM 3.5 - 5.1 mmol/L 3.6 CHLORIDE 98 - 107 mmol/L 103 CO2 22 - 32 mmol/L 27 BUN 6 - 20 mg/dL 8 CREATININE 0.5 - 1.0 mg/dL 0.6 EGFR >=60 mL/min >90 ANION GAP 7 - 15 mmol/L 12 GLUCOSE 70 - 120 mg/dL 125 (H) CALCIUM 8.4 - 10.2 mg/dL 8.9 Protein 6.0 - 8.3 g/dL 5.9 (L) Alpha-Fetoprotein Tumor Marker 0.0 - 8.3 ng/mL 8,672.0 (H) INR 0.8 - 1.2 1.4 (H) Prothrombin Time 11.6 - 15.2 seconds 17.1 (H) Albumin 3.8 - 5.0 g/dL 3.5 (L) AST 10 - 35 U/L 67 (H) ALT 10 - 35 U/L 42 (H) Alkaline Phosphatase 35 - 130 U/L 510 (H) Bilirubin, Total <=1.2 mg/dL 1.0 Bilirubin, Direct 0.0 - 0.3 mg/dL 0.5 (H) (H): Data is abnormally high (L): Data is abnormally low IMAGING REVIEWED: yes, reviewed [place] HEPATOBILIARY SYSTEM MPRESSION Scintigraphic findings suggestive acute cholecystitis. ASSESSMENT/PLAN: 64-year-old female with history of hepatocellular carcinoma with bony metastasis, admitted for acute cholecystitis, presenting with abdominal pain in the setting of malignant ascites and new lesions suspicious for metastases Advance Care Planning Inter-disciplinary meeting with family 01/11/2025 Teams present: Palliative, General Medicine Location: patient's room on GP-3 Patient participation: yes Family present: yes, Spouse and Daughter(s) Advanced Directive available: no The patient's surrogate medical decision maker participated: yes Time Involved in Meetin minutes Topics of Discussion: Patient's diagnosis/current condition: Hepatocellular Carcinoma with metastases Discussed the patient's current condition and disease trajectory and family expressed understanding. Patient / family verbalize understanding of acute events precipitating hospitalization, chronic medical condition, and current clinical status. Family meeting held to address options for continued disease directed therapies. Explored patient's values and beliefs as understood by patient's family, education and counseling provided on surrogate decision-making process, substituted judgment criteria. Emotional support, empathetic listening and reassurance provided. Discussed next steps regarding pursuing additional MRI scans, IR biopsy to obtain definitive diagnoses and possible treatment interventions Treatment goals/options/decisions: Based on this conversation, recommendations made to proceed with disease directed therapy Will continue to explore goals and values as diagnoses evolve Continue to treat symptoms and optimize medications to provide comfort Cancer-related pain -suboptimal control -Continue morphine sulfate tablets 7.5 milligrams p.o. every 6 hours around the clock -Continue morphine IV 2 milligrams every 4 hours as needed for moderate to severe pain -Continue gabapentin 100 milligrams three times daily Nausea/vomiting -Continue Zofran 4 milligrams IV every 6 hours as needed Thank you for allowing us to participate in the ongoing care of this patient. Please don't hesitate to call or page with any additional concerns. Emigdio Hogan DO Hospice and Palliative Medicine Fellow Cosigned by Leif Atkinson MD at 01/11/2025 3:36 PM EDT Associated attestation - Leif Atkinson MD - 01/11/2025 3:36 PM EDT I saw and evaluated the patient today. I have reviewed the resident/fellow physician note and agree. * Oswaldo Perez MD - 01/11/2025 8:10 AM EDT PROGRESS NOTE - Gastroenterology Service [facility] [place]-[address] [address] Name: Neha Marks Location: [facility] [place] G303/A Date: 01/11/2025 Time: 8:10 AM SUBJECTIVE: The patient was seen and examined, chart reviewed. No acute events overnight. In general, the patient felt very overwhelmed with her underlying diagnosis and not knowing the next steps. ROS: As above otherwise negative OBJECTIVE: Vital Signs Last 24 Hours: Systolic BP: Most Recent Systolic BP Av.6 mmHg Min: 121 mmHg Max: 149 mmHg Temperature: Most Recent Temperature Av.8 C Min: 36.22 C Max: 37.28 C Pulse: Pulse Av.3 Min: 92 Max: 104 Respirations: Resp Av Min: 18 Max: 22 SpO2: SpO2 Av.6 % Min: 91 % Max: 94 % General: Resting in bed, in no acute discomfort Eyes: No conjunctival icterus, conjunctiva non-injected Oropharynx: Moist mucus membranes, no erythema Lungs: No respiratory distress Heart: Physiologic rate and rhythm Abdomen: Soft, non-tender, non-distended, normoactive bowel sounds present in all four quadrants : Deferred Extremities: No edema Neuro: No focal deficits LABS: Labs reviewed as indicated below: Lab results within last 7 days (see chart for full results) Units 01/11/25 0639 01/10/25 0602 01/09/25 0459 Protein g/dL 5.9* 6.3 6.1 Bilirubin, Total mg/dL 1.0 0.8 0.8 Alkaline Phosphatase U/L 510* 492* 487* AST U/L 67* 62* 67* ALT U/L 42* 39* 42* Lab results within last 7 days (see chart for full results) Units 01/11/25 0638 01/10/25 0602 01/09/25 0458 HGB g/dL 10.0* 10.4* 9.6* HCT % 32.8* 32.0* 31.2* WBC K/uL 4.46 4.79 4.50 PLT K/uL 65* 79* 63* Latest Reference Range & Units 10/11/24 12:20 01/05/25 20:26 Alpha-Fetoprotein Tumor Marker 0.0 - 8.3 ng/mL 678.6 (H) 10,274.0 (H) MELD 3.0: 10 at 01/11/2025 6:39 AM Calculated from: Serum Creatinine: 0.6 mg/dL (Using min of 1 mg/dL) at 01/11/2025 6:39 AM Serum Sodium: 142 mmol/L (Using max of 137 mmol/L) at 01/11/2025 6:39 AM Total Bilirubin: 1 mg/dL at 01/11/2025 6:39 AM Serum Albumin: 3.5 g/dL at 01/11/2025 6:39 AM INR(ratio): 1.4 at 01/11/2025 6:39 AM Age at listing (hypothetical): 64 years Sex: Female at 01/11/2025 6:39 AM IMAGING: CT HEAD/BRAIN W CONTRAST Result Date: 01/11/[address] HEAD/BRAIN W CONTRAST: 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 Thereis associated extension into the overlie scalp and into the underlying epidural region with mild mass effect on the left frontal lobe brain parenchyma. No definite additional metastatic lesions. MRI without with contrast offers greater sensitivity and could be obtained for further assessment, if not contraindicated. There is likely direct invasion of the anterior superior sagittal sinus. Recommend CT venogram to exclude venous thrombosis. Short contrast enhance CT interval follow-up is recommended. Added to [employer] result communication system on 01/11/2025 at 2:08 am. IMPRESSION: Neha Marks is a 64 year old female with Hep C cirrhosis, chronic hep C s/p SVR in 11/2014 (with Harvoni 24 weeks), HCC (segment 7 mass 8.5 x 5 cm, LR5 and left lobe lesion 1.2 x 1.8 LR3). The patient was discussed in [facility] tumor board in October and recommending Y90 radioembolization and systemic therapy, however, this has been on hold due to active C diff infection. She was originally scheduled for radio-embolization and systemic therapy before presenting with worsening abdominal pain. Imaging on presentation was showed new pleural, rib, and right scapular lesion concerning for metastatic disease. Additionally, there was concern for possible acute cholecystitis, but the patient otherwise not have any significant infection symptoms including leukocytosis, fevers, and her liver enzymes have subsequently improved with conservative management and antibiotic therapy. In terms of her possible cholecystitis, there are no plans for any endoscopic drainage at this time as the patient has improved conservatively. In terms of her HCC, we will need further discussion with InterventionalRadiology and Oncology team regarding plan for treatment, as previous treatment plan was made before there was concern for metastatic disease. Given new findings, the patient is now [facility] stage C, with radioembolization not necessarily as part of treatment algorithm. Additionally, her right-sided rib and scapular pain seem to be the patient's main symptoms at this time andmimic biliary pain seen with acute cholecystitis. Decompensated Hep C Cirrhosis - MELD 11 Hep C s/p SVR 2015 (Harvoni 24 weeks) HCC (segment 7 mass 8.5 x 5 cm, LR5 and left lobe lesion 1.2 x 1.8 LR3) with concern for metastasisto pleura and bone - BCLC-C Cdiff Infection RECOMMENDATIONS/PLAN: - No plan for endoscopic gallbladder drainage, agree with course of IV antibiotics, liver enzymes slowly improving - Case discussed with IR, awaiting bone biopsy to assess for metastatic HCC. If HCC has not metastasized, she still could be candidate for Y90 therapy - Discussed with Oncology, plan to re-evaluate systemic therapy in outpatient setting after discharge - Agree with Rad-Onc consult for evaluation of metastatic bone lesions - ID evaluated, plan to continue Fidaxomicin - Can consider starting cholestyramine for diarrhea - Daily MELD 3.0 labs - Hepatology to remain available, please reach out if any additional questions or concerns I have discussed the case with my attending, Dr Perez Attending Attestation: I have discussed the patient's management with the medical trainee and agree with the note. Please refer to the documented findings and plan of care. The patient's bedside service today consisted of an evaluation. I was present and confirmed the findings of the history and exam. * Emigdio Hogan DO - 01/10/2025 9:08 AM EDT PROGRESS NOTE - Palliative Medicine [facility] [place]-[address] [address] Name: Neha Marks Location: [facility] [place] G303/A Date: 01/10/2025 Time: 9:08 AM SUBJECTIVE: Pain: within last 24 hours, best average: 5 She reports pain is adequately controlled. However she reports achiness to her right scapula and left chest wall worse when moving, twisting or coughing. She continues to have diarrhea and increased urination secondary to Lasix. She does report improvement of pain with initiation of morphine. OBJECTIVE: Most Recent Vital Signs: BP: 140 mmHg/66 mmHg (01/10/25 0843) Pulse: 103 (01/10/25 0843) Resp: 20 (01/10/25 0750) Temp: 37.11 C (01/10/25 06) Temp Summary: Temp Min: 36.3 °C (97.3 °F) Max: 37.1 °C (98.8 °F) SpO2: 92 % (01/10/25 075) O2 flow rate: 1 L/MIN (01/09/25 1036) Supplemental O2 Delivery: Room Air, None (01/10/25749) Vital Signs Last 24 Hours: Systolic BP: Most Recent Systolic BP Av.8 mmHg Min: 118 mmHg Max: 158 mmHg Temperature: Most Recent Temperature Av.9 C Min: 36.28 C Max: 37.11 C Pulse: Pulse Av Min: 90 Max: 105 Respirations: Resp Av.8 Min: 20 Max: 22 SpO2: SpO2 Av.3 % Min: 82 % Max: 96 % Constitutional: (+) ill appearing Chest: normal respiratory effort Extremities: no edema Musculoskeletal: (+) rib pain, scapular pain Skin: warm, dry, intact: Neuro: alert, oriented to person, place, and time LABS REVIEWED: yes, reviewed Latest Reference Range & Units 01/10/25 06:02 SODIUM 135 - 146 mmol/L 138 POTASSIUM 3.5 - 5.1 mmol/L 3.3 (L) CHLORIDE 98 - 107 mmol/L 103 CO2 22 - 32 mmol/L 24 BUN 6 - 20 mg/dL 9 CREATININE 0.5 - 1.0 mg/dL 0.5 EGFR >=60 mL/min >90 ANION GAP 7 - 15 mmol/L 11 GLUCOSE 70 - 120 mg/dL 131 (H) CALCIUM 8.4 - 10.2 mg/dL 8.8 Protein 6.0 - 8.3 g/dL 6.3 INR 0.8 - 1.2 1.4 (H) Prothrombin Time 11.6 - 15.2 seconds 17.4 (H) CBC Rpt ! WBC 4.00 - 10.80 K/uL 4.79 RBC 3.85 - 5.15 M/uL 3.44 HGB 12.0 - 15.3 g/dL 10.4 (L) HCT 36.0 - 45.2 % 32.0 (L) MCV 81.5 - 97.5 fL 93.0 MCH 27.0 - 34.0 pg 30.2 MCHC 32.0 - 36.0 g/dL 32.5 RDW 11.5 - 15.5 % 16.2 PLT 140 - 400 K/uL 79 (L) MPV 6.6 - 11.1 fL 12.9 Albumin 3.8 - 5.0 g/dL 3.4 (L) AST 10 - 35 U/L 62 (H) ALT 10 - 35 U/L 39 (H) Alkaline Phosphatase 35 - 130 U/L 492 (H) Bilirubin, Total <=1.2 mg/dL 0.8 Bilirubin, Direct 0.0 - 0.3 mg/dL 0.5 (H) (L): Data is abnormally low (H): Data is abnormally high !: Data is abnormal Rpt: View report in Results Review for more information IMAGING REVIEWED: yes, reviewed NM HEPATOBILIARY SYSTEM MPRESSION Scintigraphic findings suggestive acute cholecystitis. ASSESSMENT/PLAN: 64-year-old female with history of hepatocellular carcinoma with bony metastasis, admitted for acute cholecystitis, presenting with abdominal pain in the setting of malignant ascites Cancer-related pain -suboptimal control -Continue morphine sulfate tablets 7.5 milligrams p.o. every 6 hours around the clock -Continue morphine IV 2 milligrams every 4 hours as needed for moderate to severe pain - Continue gabapentin 100 milligrams three times daily Nausea/vomiting -Continue Zofran 4 milligrams IV every 6 hours as needed Thank you for allowing us to participate in the ongoing care of this patient. Please don't hesitate to call or page with any additional concerns. Emigdio Hogan DO Hospice and Palliative Medicine Fellow Cosigned by Leif Atkinson MD at 01/10/2025 4:34 PM EDT Associated attestation - Leif Atkinson MD - 01/10/2025 4:34 PM EDT I saw and evaluated the patient today. I have reviewed the resident/fellow physician note and agree. * Oswaldo Perez MD - 01/10/2025 7:57 AM EDT PROGRESS NOTE - Gastroenterology Service [address] [address] Name: Neha Marks Location: [facility] [place] G303/A Date: 01/10/2025 Time: 7:57 AM SUBJECTIVE: The patient was seen and examined, chart reviewed. No acute events overnight. The patient states her main concern was persistent intermittent pain in her right scapula, but otherwise felt her abdominal pain had resolved. She additionally had no fevers or chills overnight. ROS: As above otherwise negative OBJECTIVE: Vital Signs Last 24 Hours: Systolic BP: Most Recent Systolic BP Av.1 mmHg Min: 118 mmHg Max: 158 mmHg Temperature: Most Recent Temperature Av.9 C Min: 36.28 C Max: 37.11 C Pulse: Pulse Av.6 Min: 90 Max: 105 Respirations: Resp Av.8 Min: 20 Max: 22 SpO2: SpO2 Av.3 % Min: 82 % Max: 96 % General: Resting in bed, in no acute distress Eyes: No conjunctival icterus, conjunctiva non-injected Oropharynx: Moist mucus membranes, no erythema Lungs: No respiratory distress Heart: Physiologic rate and rhythm Abdomen: Soft, no tenderness on palpation of RUQ : Deferred Extremities: No edema Neuro: No focal deficits LABS: Labs reviewed as indicated below: Lab results within last 7 days (see chart for full results) Units 01/10/25 0602 01/09/25 0459 01/08/25 0552 Protein g/dL 6.3 6.1 6.2 Bilirubin, Total mg/dL 0.8 0.8 0.8 Alkaline Phosphatase U/L 492* 487* 508* AST U/L 62* 67* 84* ALT U/L 39* 42* 39* Lab results within last 7 days (see chart for full results) Units 01/10/25 0602 01/09/25 0458 01/08/25 0552 HGB g/dL 10.4* 9.6* 9.5* HCT % 32.0* 31.2* 30.9* WBC K/uL 4.79 4.50 4.80 PLT K/uL 79* 63* 59* Latest Reference Range & Units 10/11/24 12:20 01/05/25 20:26 Alpha-Fetoprotein Tumor Marker 0.0 - 8.3 ng/mL 678.6 (H) 10,274.0 (H) MELD 3.0: 11 at 01/10/2025 6:02 AM Calculated from: Serum Creatinine: 0.5 mg/dL (Using min of 1 mg/dL) at 01/10/2025 6:02 AM Serum Sodium: 138 mmol/L (Using max of 137 mmol/L) at 01/10/2025 6:02 AM Total Bilirubin: 0.8 mg/dL (Using min of 1 mg/dL) at 01/10/2025 6:02 AM Serum Albumin: 3.4 g/dL at 01/10/2025 6:02 AM INR(ratio): 1.4 at 01/10/2025 6:02 AM Age at listing (hypothetical): 64 years Sex: Female at 01/10/2025 6:02 AM IMAGING: No imaging results in the last 72 hours IMPRESSION: Neha Marks is a 64 year old female with Hep C cirrhosis, chronic hep C s/p SVR in 11/2014 (with Harvoni 24 weeks), HCC (segment 7 mass 8.5 x 5 cm, LR5 and left lobe lesion 1.2 x 1.8 LR3). The patient was discussed in [facility] tumor board in October and recommending Y90 radioembolization and systemic therapy, however, this has been on hold due to active C diff infection. She was originally scheduled for radio-embolization and systemic therapy before presenting with worsening abdominal pain. Imaging on presentation was showed new pleural, rib, and right scapular lesion concerning for metastatic disease. Additionally, there was concern for possible acute cholecystitis, but the patient otherwise not have any significant infection symptoms including leukocytosis, fevers, and her liver enzymes have subsequently improved with conservative management and antibiotic therapy. In terms of her possible cholecystitis, there are no plans for any endoscopic drainage at this time as the patient has improved conservatively. In terms of her HCC, we will need further discussion with InterventionalRadiology and Oncology team regarding plan for treatment, as previous treatment plan was made before there was concern for metastatic disease. Given new findings, the patient is now [facility] Cancer stage C, with radioembolization not necessarily as part of treatment algorithm. Additionally, her right-sided rib and scapular pain seem to be the patient's main symptoms at this time andmimic biliary pain seen with acute cholecystitis. Decompensated Hep C Cirrhosis - MELD 11 Hep C s/p SVR 2014 (Harvoni 24 weeks) HCC (segment 7 mass 8.5 x 5 cm, LR5 and left lobe lesion 1.2 x 1.8 LR3) with concern for metastasisto pleura and bone - BCLC-C Cdiff Infection RECOMMENDATIONS/PLAN: - No plan for endoscopic gallbladder drainage, agree with course of IV antibiotics, liver enzymes slowly improving - Plan to discuss case with IR and Oncology team regarding any updates in treatment plan now that patient has new lesions concerning for mets - Agree with Rad-Onc consult for evaluation of metastatic bone lesions - Recommend diagnostic paracentesis if able, particularly in the context of new ascites and abdominal pain and to rule out malignant ascites - Daily MELD 3.0 labs - Hepatology to continue to following I have discussed the case with my attending, Dr ePrez Attending Attestation: I have discussed the patient's management with the medical trainee and agree with the note. Please refer to the documented findings and plan of care. The patient's bedside service today consisted of an evaluation. I was present and confirmed the findings of the history and exam. * Cheng Mcnally DO - 01/10/2025 6:24 AM EDT Images from the original note were not included. [facility] [place] G303/A INTERVAL HISTORY: ON: No acute events Evaluated at bedside this morning. She states that her shortness of breath is improved, she is no longer having any abdominal pain. She denies fevers, chills, chest pain, or shortness of breath at rest. She is tearful during evaluation. She is very concerned now that we have identified new findings ofmetastasis, and now that plan for treatment of hepatocellular carcinoma may be changing. Objective Physical Exam Most Recent Vital Signs: BP: 126 mmHg/69 mmHg (01/10/25 0957) Pulse: 103 (01/10/25 0843) Resp: 20 (01/10/25 0750) Temp: 37.11 C (01/10/25 0624) Temp Summary: Temp Min: 36.8 °C (98.2 °F) Max: 37.1 °C (98.8 °F) SpO2: 92 % (01/10/25 0750) O2 flow rate: 1 L/MIN (01/09/25 1036) Supplemental O2 Delivery: Room Air, None (01/10/25 0750) Vital Signs Last 24 Hours: Systolic BP: Most Recent Systolic BP Av mmHg Min: 126 mmHg Max: 158 mmHg Temperature: Most Recent Temperature Av C Min: 36.78 C Max: 37.11 C Pulse: Pulse Av Min: 90 Max: 105 Respirations: Resp Av Min: 20 Max: 22 SpO2: SpO2 Av.9 % Min: 82 % Max: 96 % Intake & Output Summary (Last 24 hours): Intake/Output Summary (Last 24 hours) at 01/10/2025 1043 Last data filed at 01/09/2025 2300 Gross per 24 hour Intake 689.95 ml Output -- Net 689.95 ml Net IO Since Admission: 912.71 mL [01/07/25 1459] Last BM: Last Bowel Movement: 01/10/25 (01/10/25 1000) Stool Description: Medium;Mushy;Brown (01/10/25 1000) Constitutional: Chronically ill-appearing woman in no acute distress. HEENT: No scleral icterus. Atraumatic, EOMI. Cardiovascular: Normal rate and rhythm. No murmurs, rubs, or gallops. Respiratory: Posterior bibasilar crackles. No respiratory distress. Otherwise clear to auscultation. GI: Distended. Soft, nontender. No guarding or rigidity. Musculoskeletal: 2+ pitting edema to the proximal novoa. Trace pitting edema at the knee. Neurologic: No focal sensory or motor deficits noted on exam. Skin: No rash or lesions Psychiatric: Appropriate Peripheral Line Left;Lower Arm 22 Gauge (Active) Number of days: 3 STUDIES: Encounter Orders Labs and other studies reviewed with pertinent findings noted below: Sodium 138 Potassium 3.3, being replaced Creatinine 0.5 INR 1.4, stable WBC 4.5 K Hemoglobin 10.4, stable Platelets 79 K, improving AST 62, downtrending ALT 39, downtrending Alkaline phosphatase 492, stable Total bilirubin 0.8, improved Direct hemoglobin 0.5, up trending Radiographic Studies (last 72 hours): reviewed. 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) Decompensated HCV cirrhosis (HCC) DIFFERENTIAL AND PLAN: Neha Marks is a 64 year old female with a past medical history of hepatocellular carcinoma, decompensated cirrhosis with grade 1 esophageal varices (2021) and ascites, history of HCV infection status post treatment with Harvoni, Clostridium difficile on fidaxomicin who presented as a transfer from [facility] Emergency Department for acute cholecystitis and need for Gastroenterology/General Surgery evaluation given complexity of possible intervention in the setting of cirrhosis with ascites. Hepatic function has improved on Zosyn, Gastroenterology unlikely to perform endoscopic intervention due to improvement on medical therapy. Course complicated by findings of new right pleural based mass, right 6th rib invasion with destruction, right scapular lesion concerning for metastasis of hepatocellular carcinoma, Oncology and Palliative Medicine are following and Radiation Oncology has been consulted for palliative treatment of bony metastases. Acute Cholecystitis Hepatic function continues to improve. Gastroenterology will not be performing endoscopic intervention at this time. We will continue with medical therapy for now. Continue Zosyn 4.5 g IV q.8 hours, day 4 Duration will likely be 5-7 days if no intervention performed Gastroenterology following, appreciate recommendations General Surgery following, appreciate recommendation Hepatocellular carcinoma Right pleural mass Right 6th rib lesion Right scapular lesion New pleural mass with invasion and destruction of the right 6th rib as well as new right scapular lesion are concerning for metastasis from hepatocellular carcinoma. Oncology, Radiation Oncology, andPalliative Medicine are consulted, and considerations for future treatment being made. Multidisciplinary discussion to be held today between Gastroenterology, Interventional Radiology, and Radiation Oncology. Unclear whether she would benefit from Y 90 therapy with Interventional Radiology now thatshe has metastases. Oncology following, appreciate recommendation Radiation Oncology consulted for possible palliative treatment of right 6th rib and right scapular lesions Consult IR tomorrow to determine whether Y90 therapy would be appropriate in the setting of metastatic disease Outpatient Oncology follow-up for consideration of systemic therapy Palliative Medicine following, appreciate recommendations Morphine sulfate 7.5 mg p.o. q.6 hours Morphine 2 mg IV p.r.n. for moderate pain Morphine 4 mg p.r.n. for severe pain (Not Ordered) Naloxone available Zofran 4 mg IV p.r.n. for nausea Further advanced care planning recommended Decompensated cirrhosis Grade 1 esophageal varices Moderate volume ascites New onset ascites is concerning for progression of cirrhosis versus malignant ascites in the setting of hepatocellular carcinoma. It would be beneficial to perform a diagnostic paracentesis, however there does not appear to be any safe target pockets at this time. We will continue to follow, can POCUS in the future to check for available targets. At this juncture, suspicion for spontaneous bacterial peritonitis/secondary bacterial peritonitis is low, however she does remain on Zosyn which provides adequate coverage for typical pathogens. We will perform bedside ultrasound today to evaluate for accessible pockets of ascitic fluid. Gastroenterologyfollowing, appreciate recommendations Diagnostic paracentesis if possible Procedure team has performed bedside ultrasound, determined that there are no safe targets for paracentesis at this time Daily MELD 3.0 labs MELD 3.0: 11 at 01/10/2025 6:02 AM Calculated from: Serum Creatinine: 0.5 mg/dL (Using min of 1 mg/dL) at 01/10/2025 6:02 AM Serum Sodium: 138 mmol/L (Using max of 137 mmol/L) at 01/10/2025 6:02 AM Total Bilirubin: 0.8 mg/dL (Using min of 1 mg/dL) at 01/10/2025 6:02 AM Serum Albumin: 3.4 g/dL at 01/10/2025 6:02 AM INR(ratio): 1.4 at 01/10/2025 6:02 AM Age at listing (hypothetical): 64 years Sex: Female at 01/10/2025 6:02 AM Acute hypoxic respiratory failure This is most likely secondary to restriction in setting of poor inspiratory volumes due to pain andmass effect of cirrhosis. CT chest did not reveal anything which would explain her hypoxia. Oxygen requirements have been improving, currently on room air at rest with 1-2 L oxygen supplementation by nasal cannula with ambulation. We will continue to monitor. She does have progression of lower extremity edema with 2+ pitting edema to the mid-novoa, raising concern for possible component of pulmonary edema leading to exertional hypoxia. Pulmonary embolism considered, and possible given that she has risk factors including active malignancy and cirrhosis. However, would consider restriction due to pain as well as hypovolemia more likely. We will treat for hypovolemia, if she does not experienceimprovement we will go forward with CT PE. Lasix 40 mg IV x1 Can consider Lasix p.o. and spironolactone at discharge in the setting of cirrhosis Continue O2 supplementation as needed, wean as able DuoNebs RESPQID Clostridium difficile infection Continue fidaxomicin 200 mg twice daily Chronic Problems: Hypertension/esophageal varices: Continue SHELL TRIM OPERATOR carvedilol 6.25 mg twice daily Mood disorder: Continue SHELL TRIM OPERATOR venlafaxine 225 mg p.o. daily, quetiapine 25 mg p.o. q.h.s. Neuropathy: Continue SHELL TRIM OPERATOR gabapentin 100 mg p.o. three times daily Misc: Peripheral Line Left;Lower Arm 22 Gauge (Active) Number of days: 3 Bowel Regimen: N/a, current Clostridium difficile infection Sleep: Not on sleep protocol [place]uca: Not indicated Rehab: PT/OT consulted VTE Prophylaxis: Lovenox 40mg q24h Code Status: Full Code Disposition: 2-3 days Patient will be seen and examined by attending physician, DO Cheng Benson DO Internal Medicine Resident, PGY-1 This note was completed in part utilizing [employer] Speech Voice Recognition Software. Grammatical errors, random word insertions, pronoun errors and incomplete sentences are an occasional consequence of this system due to software limitations, ambient noise and hardware issues. Please directly address the provider for any questions or concerns about the context, text or information contained within the body of this note. Cosigned by Gibran Vital DO at 01/10/2025 3:13 PM EDT Associated attestation - Gibran Vital DO - 01/10/2025 3:13 PM EDT I saw and evaluated the patient today. I have reviewed the resident/fellow physician note and agree. Feeling similar to days prior. Noted to have dyspnea on exertion without hypoxia. Reviewed plans for today with patient and family at bedside. No GI procedure as improving with medical management alone. IR to assess utility of Y90 treatment, but recommend bone bx of rib lesions to determine if thistruly is HCC metastasis or some other pathology. Rad Onc also suggesting bone bx prior to treatmentfor pain. Will place IR orders and work toward scheduling. She has ongoing diarrhea and is nearing completion of prescribed fidaxomicin course. Given she has been on IV abx for 4 days now, have askedID to comment on overall duration of fidaxomicin as she has minimal improvement thus far and will need control of C diff prior to any oncologic treatments. Appreciate assistance of all teams involvedin coordinating her care. I spent a total of 53 minutes coordinating, documenting, and providing care for this patient excluding time spent in the performance of separately billed services or time spent by another provider/QHP. * Cheng Mcnally DO - 01/09/2025 8:53 AM EDT Images from the original note were not included. [facility] [place] G303/A INTERVAL HISTORY: ON: No acute events Evaluated at bedside this morning. Continues to feel bloated, short of breath with ambulation, having shoulder soreness which is positional and dependent on movement and whether or not she has had her medications. Denies fevers, chills, chest pain, abdominal pain, nausea, or vomiting. Says she is not feeling confused. Objective Physical Exam Most Recent Vital Signs: BP: 142 mmHg/66 mmHg (01/09/25 1036) Pulse: 98 (01/09/25 1036) Resp: 20 (01/09/25 1036) Temp: 36.28 C (01/09/25 1036) Temp Summary: Temp Min: 36.3 °C (97.3 °F) Max: 37.4 °C (99.3 °F) SpO2: 95 % (01/09/25 1036) O2 flow rate: 1 L/MIN (01/09/25 1036) Supplemental O2 Delivery: Room Air, None (Patient needs oxygen with ambulation only 2L nasal cannula. Dr. Cheng Mcnally aware.) (01/09/25 1100) Vital Signs Last 24 Hours: Systolic BP: Most Recent Systolic BP Av.2 mmHg Min: 118 mmHg Max: 157 mmHg Temperature: Most Recent Temperature Av C Min: 36.28 C Max: 37.39 C Pulse: Pulse Av.2 Min: 93 Max: 102 Respirations: Resp Av.3 Min: 18 Max: 24 SpO2: SpO2 Av.8 % Min: 88 % Max: 96 % Intake & Output Summary (Last 24 hours): Intake/Output Summary (Last 24 hours) at 01/09/2025 1243 Last data filed at 01/09/2025 1000 Gross per 24 hour Intake 2187.44 ml Output -- Net 2187.44 ml Net IO Since Admission: 912.71 mL [01/07/25 1459] Last BM: Last Bowel Movement: 01/09/25 (01/09/25 1000) Stool Description: Medium;Brown (01/09/25 1000) Constitutional: Chronically ill-appearing woman in no acute distress. HEENT: No appreciable scleral icterus. Atraumatic, EOMI. Cardiovascular: Normal rate and rhythm. No murmurs, rubs, or gallops. Respiratory: Trace wheezing. No respiratory distress. Otherwise clear to auscultation. GI: Soft, nondistended, nontender. No guarding or rigidity. Musculoskeletal: 2+ pitting edema to the mid-novoa. Neurologic: Asterixis present. Cognition continues to seem slowed, but answering questions appropriately. No focal sensory or motor deficits. Skin: No rash or lesions Psychiatric: Appropriate Peripheral Line Left;Lower Arm 22 Gauge (Active) Number of days: 2 STUDIES: Encounter Orders Labs and other studies reviewed with pertinent findings noted below: Sodium 139 Potassium 3.7 Creatinine 0.6 INR 1.5 WBC 4.5 K Hemoglobin 9.6, stable Platelets 63 K, improving AST 67, downtrending ALT 42, downtrending Alkaline phosphatase 487, downtrending Total bilirubin 0.8, improved Direct hemoglobin 0.4 Radiographic Studies (last 72 hours): reviewed. 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) Decompensated HCV cirrhosis (HCC) DIFFERENTIAL AND PLAN: Neha Marks is a 64 year old female with a past medical history of hepatocellular carcinoma, decompensated cirrhosis with grade 1 esophageal varices (2021) and ascites, history of HCV infection status post treatment with Harvoni, Clostridium difficile on fidaxomicin who presented as a transfer from [facility] Emergency Department for acute cholecystitis and need for Gastroenterology/General Surgery evaluation given complexity of possible intervention in the setting of cirrhosis with a ascites, hepatic function has improved on Zosyn, continuing to monitor. Course complicated byfindings of new right pleural based mass, right 6th rib invasion with destruction, right scapular lesion concerning for metastasis of hepatocellular carcinoma, Oncology and Palliative Medicine are following and Radiation Oncology has been consulted for palliative treatment of bony metastases. Acute Cholecystitis Treatment plan to be determined in conjunction with Gastroenterology and General Surgery. Open or laparoscopic procedures would be high-risk in the setting of cirrhosis with ascites, and would place her at risk for secondary bacterial peritonitis due to instrumentation and possibility of bacterial translocation during operation. Endoscopic drainage versus stent placement as a possible alternativepending Gastroenterology recommendations. Hepatic function has improved with conservative therapy. For now patient will remain on Zosyn and will be re-evaluated tomorrow for possible endoscopic drainage of gallbladder. Continue Zosyn 4.5 g IV q.8 hours Duration will likely be 5-7 days if no intervention performed Gastroenterology following, appreciate recommendations General Surgery following, appreciate recommendation Hepatocellular carcinoma Right pleural mass Right 6th rib lesion Right scapular lesion New pleural mass with invasion and destruction of the right 6th rib as well as new right scapular lesion are concerning for metastasis from hepatocellular carcinoma. Oncology, Radiation Oncology, andPalliative Medicine are consulted, and considerations for future treatment being made. There has been discussion of Y90 therapy with systemic therapy to follow. Oncology following, appreciate recommendation Radiation Oncology consulted for possible palliative treatment of right 6th rib and right scapular lesions Consult IR tomorrow to determine whether Y90 therapy would be appropriate in the setting of metastatic disease Outpatient Oncology follow-up for consideration of systemic therapy Palliative Medicine following, appreciate recommendations Morphine sulfate 7.5 mg p.o. q.6 hours Morphine 2 mg p.r.n. for moderate pain Morphine for mg p.r.n. for severe pain (Not Ordered) Have naloxone available Zofran 4 mg IV p.r.n. for nausea Further advanced care planning Decompensated cirrhosis Grade 1 esophageal varices Moderate volume ascites New onset ascites is concerning for progression of cirrhosis versus malignant ascites in the setting of hepatocellular carcinoma. It would be beneficial to perform a diagnostic paracentesis, however there does not appear to be any safe target pockets at this time. We will continue to follow, can POCUS in the future to check for available targets. At this juncture, suspicion for spontaneous bacterial peritonitis/secondary bacterial peritonitis is low, however she does remain on Zosyn which provides adequate coverage for typical pathogens. Given possibility that she will undergo future endoscopic drainage of the gallbladder we will need to closely monitor for development of further abdominal symptoms which could suggest the onset of peritonitis. Not currently concerned for hepatic encephalopathy, we will monitor mental status closely as well as physical exam for signs of asterixis and ensure adequate bowel movements. Gastroenterology following, appreciate recommendations Diagnostic paracentesis if possible Procedure team has performed bedside ultrasound, determined that there are no safe targets for paracentesis at this time Daily MELD 3.0 labs MELD 3.0: 12 at 01/09/2025 4:59 AM Calculated from: Serum Creatinine: 0.6 mg/dL (Using min of 1 mg/dL) at 01/09/2025 4:59 AM Serum Sodium: 139 mmol/L (Using max of 137 mmol/L) at 01/09/2025 4:59 AM Total Bilirubin: 0.8 mg/dL (Using min of 1 mg/dL) at 01/09/2025 4:59 AM Serum Albumin: 3.2 g/dL at 01/09/2025 4:59 AM INR(ratio): 1.5 at 01/09/2025 4:59 AM Age at listing (hypothetical): 64 years Sex: Female at 01/09/2025 4:59 AM Acute hypoxic respiratory failure This is most likely secondary to restriction in setting of poor inspiratory volumes due to pain andmass effect of cirrhosis. CT chest did not reveal anything which would explain her hypoxia. Oxygen requirements have been improving, currently on room air at rest with 1-2 L oxygen supplementation by nasal cannula with ambulation. We will continue to monitor. She does have progression of lower extremity edema with 2+ pitting edema to the mid-novoa, if oxygen requirements do not improve may requireIV diuresis. Continue O2 supplementation as needed, wean as able Duo nebs RESPQID Clostridium difficile infection Continue fidaxomicin 200 mg twice daily Chronic Problems: Hypertension/esophageal varices: Continue SHELL TRIM OPERATOR 6.25 mg twice daily Mood disorder: Continue SHELL TRIM OPERATOR venlafaxine 225 mg p.o. daily, quetiapine 25 mg p.o. q.h.s. Neuropathy: Continue SHELL TRIM OPERATOR gabapentin 100 mg p.o. three times daily Misc: Peripheral Line Left;Lower Arm 22 Gauge (Active) Number of days: 2 Bowel Regimen: N/a, current Clostridium difficile infection Sleep: Not on sleep protocol Deluca: Not indicated Rehab: PT/OT consulted VTE Prophylaxis: Lovenox 40mg q24h Code Status: Full Code Disposition: 3+ days Patient will be seen and examined by attending physician, DO Cheng Benson DO Internal Medicine Resident, PGY-1 This note was completed in part utilizing [employer] Speech Voice Recognition Software. Grammatical errors, random word insertions, pronoun errors and incomplete sentences are an occasional consequence of this system due to software limitations, ambient noise and hardware issues. Please directly address the provider for any questions or concerns about the context, text or information contained within the body of this note. Cosigned by Gibran Vital DO at 01/09/2025 12:58 PM EDT Associated attestation - Gibran Vital DO - 01/09/2025 12:58 PM EDT I saw and evaluated the patient today. I have reviewed the resident/fellow physician note and agree. Pain somewhat improved. No dyspnea after neb treatment. Pending final determination if biliary drainage is necessary. Will d/w IR and Rad Onc tomorrow for plans moving forward. Continue fidaxomicin for C diff. I spent a total of 51 minutes coordinating, documenting, and providing care for this patient excluding time spent in the performance of separately billed services or time spent by another provider/QHP. * Sophia Riley MD - 01/08/2025 12:33 PM EDT Images from the original note were not included. [facility] G303/A INTERVAL HISTORY: No overnight acute events Patient evaluated this morning, was extremely tearful. States that she is more anxious and she is in more pain today. Still having the right shoulder pain that she feels the same compared to yesterday. Objective Physical Exam Most Recent Vital Signs: BP: 111 mmHg/71 mmHg (01/07/25 1139) Pulse: 88 (01/07/25 1139) Resp: 20 (01/07/25 1139) Temp: 36.78 C (01/07/25 1139) Temp Summary: Temp Min: 36.8 °C (98.2 °F) Max: 37.5 °C (99.5 °F) SpO2: 92 % (01/07/25 1139) O2 flow rate: 1 L/MIN (01/07/25 1139) Supplemental O2 Delivery: Nasal Cannula (01/07/25 1139) Constitutional: (+) moderate distress CV: Tachycardic no murmur, gallops or rub Chest: normal respiratory effort, lungs clear to auscultation and percussion Abdomen: Mild abdominal tenderness on the right upper quadrant Extremities: no clubbing, cyanosis, or edema, otherwise grossly normal, warm, and dry Neuro: alert, oriented to person, place, and time, no focal neurologic deficits Psych: Extremely tearful and anxious Peripheral Line Left Antecubital 18 Gauge (Active) Number of days: 2 STUDIES: Encounter Orders Labs and other studies reviewed with pertinent findings noted below: Laboratory Values: reviewed. -- Brief labs below include the 7 most recent results over the past week. Blood Gas: Lab results within last 7 days (see chart for full results) Units 01/05/252025 pH, Venous units 7.428 pCO2, Venous mmHg 46.2 pO2, Venous mmHg 39.0 Base Excess, Venous mmol/L 5.3* Chemistry Panel: Lab results within last 7 days (see chart for full results) Units 01/08/25 0552 01/07/25 0848 01/06/2555801/05/252025 SODIUM mmol/L 138 136 141 137 POTASSIUM mmol/L 3.3* 3.8 3.4* 3.4* CHLORIDE mmol/L 104 102 106 99 CO2 mmol/L 21* 23 23 27 EGFR mL/min >90 88 >90 >90 BUN mg/dL 11 11 8 8 CREATININE mg/dL 0.6 0.8 0.5 0.7 GLUCOSE mg/dL 165* 132* 150* 159* CALCIUM mg/dL 8.7 9.1 8.7 9.3 Magnesium mg/dL -- -- 1.9 -- Phosphorus mg/dL -- -- 2.9 -- ANION GAP mmol/L 13 11 12 11 Complete Blood Count: Lab results within last 7 days (see chart for full results) Units 01/08/25 0552 01/07/25 0848 01/06/25 0559 01/05/252025 WBC K/uL 4.80 5.97 6.40 6.05 HGB g/dL 9.5* 9.7* 10.6* 11.4* HCT % 30.9* 32.0* 34.3* 35.5* PLT K/uL 59* 55* 70* 66* MCV fL 94.8 96.1 94.0 90.8 Cardiac Studies: Lab results within last 7 days (see chart for full results) Units 01/05/252025 Troponin T, High Sensitivity ng/L 6 Coagulation Studies: Lab results within last 7 days (see chart for full results) Units 01/08/25 0552 01/07/25 0848 01/06/2555801/05/252025 Prothrombin Time seconds 18.3* 18.4* 16.9* 16.5* INR 1.5* 1.5* 1.4* 1.3* aPTT seconds -- -- -- 34 Liver Function Panel: Lab results within last 7 days (see chart for full results) Units 01/08/25 0552 01/07/25 0848 01/06/25 0559 01/05/252025 Albumin g/dL 3.3* 3.5* 3.7* 4.1 Protein g/dL 6.2 6.5 6.7 7.4 Bilirubin, Total mg/dL 0.8 1.5* 1.2 1.0 Bilirubin, Direct mg/dL 0.3 -- -- -- AST U/L 84* 106* 127* 135* ALT U/L 39* 45* 44* 42* Alkaline Phosphatase U/L 508* 520* 577* 620* Infectious Studies: Lab results within last 7 days (see chart for full results) Units 01/06/25 0559 01/05/252025 Lactate mmol/L -- 1.5 Procalcitonin ng/mL 0.07 0.08 Cultures: reviewed. Lab results within last 7 days (see chart for full results) Units 01/05/252033 Coronavirus SARS-CoV-2 Negative Recent Cultures (2 Weeks) 01/05/2025 01/05/2025 8:47 PM 8:26 PM BLOOD CULTURE GROWTH No growth to date No growth to date Radiographic Studies: reviewed. NM HEPATOBILIARY SYSTEM Result Date: 01/06/2025 IMPRESSION Scintigraphic findings suggestive acute cholecystitis. The critical results were relayedto Dr. Taran Hines via tigertext by William Begum at 1015 on 01/06/2025. Understanding was expressed. I have personally reviewed this examination and agree with the resident/fellow physician's interpretation. XR SHOULDER, 2 OR MORE VIEWS Result Date: 01/06/2025 IMPRESSION Lytic lesion in the right scapula at the base of the acromion with pathologic fracture. US ABDOMEN LIMITED Result Date: 01/06/2025 IMPRESSION 1. Cholelithiasis and borderline increased gallbladder wall thickness. No pericholecystic fluid. Negative sonographic sign. Findings are equivocal for acute cholecystitis and may be related to cirrhosis however consider correlation with HIDA scan if there is persistent concern for acute c holecystitis. 2. Cirrhosis. 2.4 cm hypoechoic mass in the right hepatic lobe consistent with known LI-RADS [address] ABD/PELVIS W IV CONTRAST - WO ORAL CONTRAST Result Date: 01/05/2025 IMPRESSION: 1. Extensive cirrhotic changes of the liver with 1.3 cm nodular density posterior exophytic right lobe may represent regenerating nodule but is nonspecific. MRI can further evaluate as clinically indicated. 2. Portal venous hypertension changes 3. Moderate abdominal and pelvic ascites 4. Luz hepatic adenopathy with nodes up to 5 cm in diameter. 5. Calcified gallstone with some pericholecystic fat ill distinctness which is nonspecific in the setting of ascites.Some linear calcification within the gallbladder wall is also suspected. If cholecystitis is suspected clinically ultrasound can further evaluate. THIS DOCUMENT HAS BEEN ELECTRONICALLY SIGNED BY NISA BAUTISTA MD CT CHEST WO CONTRAST Result Date: 01/05/2025 IMPRESSION: 1. Right posterior pleural-based mass with erosive/destructive changes of the right posterior 6th rib highly suspicious for neoplastic disease. 2. Right scapular lesion highly suspicious for bony metastasis. 3. Ground-glass 3 mm nodule left lung anteriorly nonspecific. 4. 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 THIS DOCUMENT HAS BEEN ELECTRONICALLY SIGNED BY NISA BAUTISTA MD XR CHEST 1 VIEW Result Date: 01/05/2025 IMPRESSION 1. No acute cardiopulmonary findings. 2. Large lytic lesion in the posterior right 6th rib. 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 Her CT abdomen pelvis was positive for helena cholecystic fat linear calcification of the gallbladder concerning for cholecystitis. Given the complexity of her illness in the setting of cirrhosis, HCC and ascites it was decided to proceed with axios stents placement. Acute cholecystitis Monitor on antibiotics and pain regimen for now Continue IV Zosyn for anaerobic coverage Was scheduled for axial was stent placement by GI but unfortunately procedure was canceled yesterday We will evaluate on conservative measures for now Endoscopic access an axial stent placement placement by GI GI following appreciate recommendations General Surgery following appreciate recommendation Hepatocellular carcinoma with concerns of metastasis Right pleural mass Right 6th rib lesion Right scapular lesion Radiation Oncology consulted for possible palliative treatment of 6th rib and scapular mass Oncology following appreciate recommendations Outpatient Oncology follow-up for consideration of systemic therapy that is currently on hold due to active C diff infection Reach out to IR for Y90 therapy as an outpatient Initial plan was for Y90 radioembolization however there has been no updates after diagnosis of metastatic disease. We will reach out to IR to clarify radioembolization therapy Palliative Medicine following appreciate recommendations Discussed with palliative to add scheduled morphine 7.5 mg q.6h Morphine 2-4 mg p.r.n. for pain Zofran 4 mg IV p.r.n. for nausea Advanced care planning Acute hypoxic respiratory failure Patient currently saturating around 96% in 1-2 L nasal cannula. Suspecting hypoxic respiratory failure secondary to pain that is limiting full lung expansion. Underlying anxiety might be contributing. Continue duo neb rest four times daily Continue morphine sulfate q.6h for pain Continue oxygen for support Continue Seroquel and Effexor for anxiety Decompensated hepatitis C cirrhosis Not enough ascitic fluid for paracentesis Daily MELD labs Hepatology following closely Chronic C diff infection Continue SHELL TRIM OPERATOR fidaxomicin Chronic problems Hypertension continue SHELL TRIM OPERATOR carvedilol 6.25 twice daily PHARMACOLOGIC VTE PROPHYLAXIS: Enoxaparin CODE STATUS: Full Code EXPECTED DISCHARGE DATE: No information available Patient was discussed with Gibran Vital DO . Cosigned by Gibran Vital DO at 01/08/2025 2:57 PM EDT Associated attestation - Gibran Vital DO - 01/08/2025 2:57 PM EDT I saw and evaluated the patient today. I have reviewed the resident/fellow physician note and agree. Pain not well controlled today. Appreciate Palliative recommendations. Add oral morphine, continueIV morphine. Will ask Rad/onc for opinion on lesions and will f/u with IR on Friday given new diagnosis of metastatic disease in regard to initial plan for treatment. * Kalani Robin MD - 01/08/2025 11:15 AM EDT PROGRESS NOTE - Gastroenterology Service [facility] [place]-[address] [id number] Name: Neha Marks Location: [facility] [place] G303/A Date: 01/08/2025 Time: 11:15 AM SUBJECTIVE: The patient was seen and examined, chart reviewed. No acute events overnight. The patient states she is somewhat frustrated about not be able to get her procedure completed yesterday and being made NPO. She continues to endorse right-sided pain that has more in her flank and back area. ROS: As above otherwise negative OBJECTIVE: Vital Signs Last 24 Hours: Systolic BP: Most Recent Systolic BP Av.1 mmHg Min: 111 mmHg Max: 158 mmHg Temperature: Most Recent Temperature Av.1 C Min: 36.78 C Max: 37.5 C Pulse: Pulse Av.3 Min: 88 Max: 112 Respirations: Resp Av.7 Min: 20 Max: 22 SpO2: SpO2 Av.3 % Min: 90 % Max: 95 % General: Sitting in bed, in mild distress, frail Eyes: No conjunctival icterus, conjunctiva non-injected Oropharynx: Moist mucus membranes, no erythema Lungs: No respiratory distress Heart: Physiologic rate and rhythm Abdomen: Soft, non-tender, non-distended, normoactive bowel sounds present in all four quadrants : Deferred Extremities: No edema Neuro: No focal deficits LABS: Labs reviewed as indicated below: Lab results within last 7 days (see chart for full results) Units 01/08/25 0552 01/07/25 0848 01/06/25 0559 Protein g/dL 6.2 6.5 6.7 Bilirubin, Total mg/dL 0.8 1.5* 1.2 Alkaline Phosphatase U/L 508* 520* 577* AST U/L 84* 106* 127* ALT U/L 39* 45* 44* Lab results within last 7 days (see chart for full results) Units 01/08/25 0552 01/07/25 0848 01/06/25 0559 HGB g/dL 9.5* 9.7* 10.6* HCT % 30.9* 32.0* 34.3* WBC K/uL 4.80 5.97 6.40 PLT K/uL 59* 55* 70* Latest Reference Range & Units 10/11/24 12:20 01/05/25 20:26 Alpha-Fetoprotein Tumor Marker 0.0 - 8.3 ng/mL 678.6 (H) 10,274.0 (H) IMAGING: NM HEPATOBILIARY SYSTEM Result Date: 01/06/2025 IMPRESSION Scintigraphic findings suggestive acute cholecystitis. The critical results were relayedto Dr. Taran Hines via tigertext by William Begum at 1015 on 01/06/2025. Understanding was expressed. I have personally reviewed this examination and agree with the resident/fellow physician's interpretation. XR SHOULDER, 2 OR MORE VIEWS Result Date: 01/06/2025 IMPRESSION Lytic lesion in the right scapula at the base of the acromion with pathologic fracture. US ABDOMEN LIMITED Result Date: 01/06/2025 IMPRESSION 1. Cholelithiasis and borderline increased gallbladder wall thickness. No pericholecystic fluid. Negative sonographic sign. Findings are equivocal for acute cholecystitis and may be related to cirrhosis however consider correlation with HIDA scan if there is persistent concern for acute c holecystitis. 2. Cirrhosis. 2.4 cm hypoechoic mass in the right hepatic lobe consistent with known LI-RADS [address] ABD/PELVIS W IV CONTRAST - WO ORAL CONTRAST Result Date: 01/05/2025 IMPRESSION: 1. Extensive cirrhotic changes of the liver with 1.3 cm nodular density posterior exophytic right lobe may represent regenerating nodule but is nonspecific. MRI can further evaluate as clinically indicated. 2. Portal venous hypertension changes 3. Moderate abdominal and pelvic ascites 4. Luz hepatic adenopathy with nodes up to 5 cm in diameter. 5. Calcified gallstone with some pericholecystic fat ill distinctness which is nonspecific in the setting of ascites.Some linear calcification within the gallbladder wall is also suspected. If cholecystitis is suspected clinically ultrasound can further evaluate. THIS DOCUMENT HAS BEEN ELECTRONICALLY SIGNED BY NISA BAUTISTA MD CT CHEST WO CONTRAST Result Date: 01/05/2025 IMPRESSION: 1. Right posterior pleural-based mass with erosive/destructive changes of the right posterior 6th rib highly suspicious for neoplastic disease. 2. Right scapular lesion highly suspicious for bony metastasis. 3. Ground-glass 3 mm nodule left lung anteriorly nonspecific. 4. 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 THIS DOCUMENT HAS BEEN ELECTRONICALLY SIGNED BY NISA BAUTISTA MD XR CHEST 1 VIEW Result Date: 01/05/2025 IMPRESSION 1. No acute cardiopulmonary findings. 2. Large lytic lesion in the posterior right 6th rib. IMPRESSION: #Acute Hypoxemic Respiratory Failure #Decompensated Hep C Cirrhosis - MELD 11 Child Caldera Class A #Hep C s/p SVR 2014 (Harvoni 24 weeks) #HCC (segment 7 mass 8.5 x 5 cm, LR5 and left lobe lesion 1.2 x 1.8 LR3) with concern for metastasis to pleura and bone - BCLC-C #Cdiff Infection #Acute Cholecystitis Neha Marks is a 64 year old female with Hep C cirrhosis, chronic hep C s/p SVR in 11/2014 (with Harvoni 24 weeks), HCC (segment 7 mass 8.5 x 5 cm, LR5 and left lobe lesion 1.2 x 1.8 LR3) discussed in Tumor board recommending Y90 radioembolization and systemic therapy - on hold due to active C diff infection currently on fidaxomicin presenting with acute hypoxic respiratory failure and abdominal and chest pain. Patient originally scheduled for radio-embolization and systemic therapy but given new ascites concerning for decompensated cirrhosis and concurrent suspected neoplastic lesions in pleura and possibly scapula concerning for metastatic disease patient now Juan Liver Cancer Stage C, and systemic therapy may now be indicated over regional. Additionally noted to have concerns of acute cholecystitis on HIDA scan and was planned for possible endoscopic ultrasound guided gallbladder drainage on 01/07, but this was unable to be completed dueto scheduling constraints. RECOMMENDATIONS/PLAN: - Recommend IR diagnostic paracentesis if able, particularly in the context of new ascites and abdominal pain and to rule out malignant ascites - Can continue to monitor supportively over weekend in terms of acute cholecystitis concern. If overall improvement, may not require intervention, otherwise can plan for possible procedure 01/10 - Daily MELD 3.0 labs - Remainder of care per primary; hepatology to continue to follow I have discussed the case with my attending, Dr Perez and Dr. Coronado Cosigned by Tyrese Coronado DO at 01/08/2025 2:04 PM EDT Associated attestation - Tyrese Coronado DO - 01/08/2025 2:04 PM EDT I did not see the patient, but I have reviewed the resident/fellow physician documentation and was readily available on date of service. * Cheng Mcnally DO - 01/07/2025 2:57 PM EDT Images from the original note were not included. [facility] [place] G303/A INTERVAL HISTORY: ON: No acute events Evaluated at bedside this morning. Stated that she had been experiencing right- sided abdomen/chest pain, right arm and shoulder pain for approximately 1 week in increasing intensity. She has been having diarrhea for months, recently diagnosed with Clostridium difficile on 11/30/2024. Currently she is experiencing shortness of breath, right arm pain, right shoulder pain, intermittent diarrhea. She denies fevers, chills, confusion, chest pain, abdominal pain, nausea, vomiting. Objective Physical Exam Most Recent Vital Signs: BP: 111 mmHg/71 mmHg (01/07/25 113) Pulse: 88 (01/07/25 113) Resp: 20 (01/07/251138) Temp: 36.78 C (01/07/251138) Temp Summary: Temp Min: 36.8 °C (98.2 °F) Max: 37.5 °C (99.5 °F) SpO2: 92 % (01/07/251138) O2 flow rate: 1 L/MIN (01/07/251138) Supplemental O2 Delivery: Nasal Cannula (01/07/251138) Vital Signs Last 24 Hours: Systolic BP: Most Recent Systolic BP Av.2 mmHg Min: 106 mmHg Max: 149 mmHg Temperature: Most Recent Temperature Av.2 C Min: 36.78 C Max: 37.5 C Pulse: Pulse Av.2 Min: 88 Max: 100 Respirations: Resp Av.3 Min: 20 Max: 24 SpO2: SpO2 Av.4 % Min: 91 % Max: 97 % Intake & Output Summary (Last 24 hours): Intake/Output Summary (Last 24 hours) at 01/07/2025 1459 Last data filed at 01/07/2025 0600 Gross per 24 hour Intake 420.41 ml Output -- Net 420.41 ml Net IO Since Admission: 912.71 mL [01/07/25 1459] Last BM: Last Bowel Movement: 01/07/25 (01/07/25 1100) Stool Description: Small;Loose;Brown (01/07/25 1100) Constitutional: Chronically ill-appearing woman in no acute distress. HEENT: No appreciable scleral icterus. Atraumatic, EOMI. Cardiovascular: Normal rate and rhythm. No murmurs, rubs, or gallops. Respiratory: Trace wheezes. No respiratory distress. Otherwise clear to auscultation. GI: Soft, nondistended, nontender. No guarding or rigidity. Musculoskeletal: Trace lower extremity edema. Neurologic: Tremor at rest. Negative for asterixis. Slowed cognition, but answers questions appropriately. No focal sensory or motor deficits. Skin: No rash or lesions Psychiatric: Appropriate Peripheral Line Left Antecubital 18 Gauge (Active) Number of days: 2 STUDIES: Encounter Orders Labs and other studies reviewed with pertinent findings noted below: Sodium 136 Potassium 3.8 Creatinine 0.8 INR 1.5 WBC 5.97 K Hemoglobin 9.7 Platelets 55 K AST 106, downtrending ALT 45, stable Alkaline phosphatase 520, downtrending Total bilirubin 1.5, elevated Radiographic Studies (last 72 hours): reviewed. NM HEPATOBILIARY SYSTEM Result Date: 01/06/2025 IMPRESSION Scintigraphic findings suggestive acute cholecystitis. The critical results were relayedto Dr. Taran Hines via tigertext by William Begum at 1015 on 01/06/2025. Understanding was expressed. I have personally reviewed this examination and agree with the resident/fellow physician's interpretation. XR SHOULDER, 2 OR MORE VIEWS Result Date: 01/06/2025 IMPRESSION Lytic lesion in the right scapula at the base of the acromion with pathologic fracture. US ABDOMEN LIMITED Result Date: 01/06/2025 IMPRESSION 1. Cholelithiasis and borderline increased gallbladder wall thickness. No pericholecystic fluid. Negative sonographic sign. Findings are equivocal for acute cholecystitis and may be related to cirrhosis however consider correlation with HIDA scan if there is persistent concern for acute c holecystitis. 2. Cirrhosis. 2.4 cm hypoechoic mass in the right hepatic lobe consistent with known LI-RADS [address] ABD/PELVIS W IV CONTRAST - WO ORAL CONTRAST Result Date: 01/05/2025 IMPRESSION: 1. Extensive cirrhotic changes of the liver with 1.3 cm nodular density posterior exophytic right lobe may represent regenerating nodule but is nonspecific. MRI can further evaluate as clinically indicated. 2. Portal venous hypertension changes 3. Moderate abdominal and pelvic ascites 4. Luz hepatic adenopathy with nodes up to 5 cm in diameter. 5. Calcified gallstone with some pericholecystic fat ill distinctness which is nonspecific in the setting of ascites.Some linear calcification within the gallbladder wall is also suspected. If cholecystitis is suspected clinically ultrasound can further evaluate. THIS DOCUMENT HAS BEEN ELECTRONICALLY SIGNED BY NISA BAUTISTA MD CT CHEST WO CONTRAST Result Date: 01/05/2025 IMPRESSION: 1. Right posterior pleural-based mass with erosive/destructive changes of the right posterior 6th rib highly suspicious for neoplastic disease. 2. Right scapular lesion highly suspicious for bony metastasis. 3. Ground-glass 3 mm nodule left lung anteriorly nonspecific. 4. 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 THIS DOCUMENT HAS BEEN ELECTRONICALLY SIGNED BY NISA BAUTISTA MD XR CHEST 1 VIEW Result Date: 01/05/2025 IMPRESSION 1. No acute cardiopulmonary findings. 2. Large lytic lesion in the posterior right 6th rib. 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) DIFFERENTIAL AND PLAN: Neha Marks is a 64 year old female with a past medical history of hepatocellular carcinoma, decompensated cirrhosis with grade 1 esophageal varices (2021) and ascites, history of HCV infection status post treatment with Harvoni, Clostridium difficile on fidaxomicin who presented as a transfer from [facility] Emergency Department where she had presented with fever, chest pain, right arm pain and had CT abdomen/pelvis with IV contrast which showed pericholecystic fat and linear calcifications of the gallbladder wall concerning for cholecystitis, she was transferred to [facility] for further evaluation and had HIDA scan which was suggestive of acute cholecystitis. General Surgery and Gastroenterology are evaluating regarding optimal strategy for intervention given the complexity of her illness in the setting of cirrhosis with the ascites. In addition, she hasevidence of new right 6th rib and right scapular bony metastases, Oncology and Palliative Medicine are consulted and are following the patient. Patient does have acute hypoxic respiratory failure, etiology not definitive but more likely secondary to poor respiratory effort in the setting of pain aswell as restriction in the setting of ascites given that CT was unrevealing for cause of hypoxia. Acute Cholecystitis Treatment plan to be determined in conjunction with Gastroenterology and General Surgery. Open or laparoscopic procedures would be high-risk in the setting of cirrhosis with ascites, and would place her at risk for secondary bacterial peritonitis due to instrumentation and possibility of bacterial translocation during operation. Endoscopic drainage versus stent placement as a possible alternativepending Gastroenterology recommendations. In the meantime, would continue treating with medical management including bowel rest and antibiotic therapy. Continue Zosyn 4.5 g IV q.8 hours Gastroenterology following, appreciate recommendations General Surgery following, appreciate recommendation Hepatocellular carcinoma Right pleural mass Right 6th rib lesion Right scapular lesion New pleural mass with invasion and destruction of the right 6th rib as well as new right scapular lesion are concerning for metastasis from hepatocellular carcinoma. Oncology and Palliative Medicine are consulted, and considerations for future treatment being made. There has been discussion of Y90 therapy with systemic therapy to follow. Oncology following, appreciate recommendation Consider Radiation Oncology consult while inpatient for palliative treatment of 6 rib and scapular mass IR for Y90 therapy as an outpatient Outpatient Oncology follow-up for consideration of systemic therapy Palliative Medicine following, appreciate recommendations Morphine 2-4 mg p.r.n. for pain Zofran 4 mg IV p.r.n. for nausea Further advanced care planning Decompensated cirrhosis Grade 1 esophageal varices Moderate volume ascites New onset ascites is concerning for progression of cirrhosis versus malignant ascites in the setting of hepatocellular carcinoma. It would be beneficial to perform a diagnostic paracentesis, however 30 not appear to be any safe target pockets at this time. We will continue to follow, can POCUS in the future to check for available targets. At this juncture, suspicion for spontaneous bacterial peritonitis/secondary bacterial peritonitis is low, however she does remain on Zosyn which provides adequate coverage for typical pathogens. Given likelihood that she will undergo future endoscopic versussurgical intervention we will need to closely monitor for development of further abdominal symptoms which could suggest the onset of peritonitis. Not currently concerned for hepatic encephalopathy, we will monitor mental status closely as well as physical exam for signs of asterixis and ensure adequate bowel movements. Gastroenterology following, appreciate recommendations Diagnostic paracentesis if possible Procedure team has performed bedside ultrasound, determined that there are no safe targets for paracentesis at this time Daily MELD 3.0 labs MELD 3.0: 14 at 01/07/2025 8:48 AM Calculated from: Serum Creatinine: 0.8 mg/dL (Using min of 1 mg/dL) at 01/07/2025 8:48 AM Serum Sodium: 136 mmol/L at 01/07/2025 8:48 AM Total Bilirubin: 1.5 mg/dL at 01/07/2025 8:48 AM Serum Albumin: 3.5 g/dL at 01/07/2025 8:48 AM INR(ratio): 1.5 at 01/07/2025 8:48 AM Age at listing (hypothetical): 64 years Sex: Female at 01/07/2025 8:48 AM Acute hypoxic respiratory failure This is most likely secondary to restriction in setting of poor inspiratory volumes due to pain andmass effect of cirrhosis. CT chest did not reveal anything which would explain her hypoxia. Oxygen requirements have been improving. We will continue to monitor. Continue O2 supplementation as needed, wean as able Duo nebs RESPQID Clostridium difficile infection Continue fidaxomicin 200 mg twice daily Chronic Problems: Hypertension/esophageal varices: Continue SHELL TRIM OPERATOR 6.25 mg twice daily Mood disorder: Continue SHELL TRIM OPERATOR venlafaxine 225 mg p.o. daily, quetiapine 25 mg p.o. q.h.s. Misc: Peripheral Line Left Antecubital 18 Gauge (Active) Number of days: 2 Bowel Regimen: N/a, current Clostridium difficile infection Sleep: Not on sleep protocol Deluca: Not indicated Rehab: PT/OT consulted VTE Prophylaxis: Lovenox 40mg q24h Code Status: Full Code Disposition: 3+ days Patient will be seen and examined by attending physician, DO Cheng Benson DO Internal Medicine Resident, PGY-1 This note was completed in part utilizing [employer] Speech Voice Recognition Software. Grammatical errors, random word insertions, pronoun errors and incomplete sentences are an occasional consequence of this system due to software limitations, ambient noise and hardware issues. Please directly address the provider for any questions or concerns about the context, text or information contained within the body of this note. Cosigned by Gibran Vital DO at 01/07/2025 5:04 PM EDT Associated attestation - Gibran Vital DO - 01/07/2025 5:04 PM EDT I saw and evaluated the patient today. I have reviewed the resident/fellow physician note and agree. Doing somewhat better today per patient and family report. Her wheezing has resolved this afternoonand is down to 1L O2. She was planned for axios stent with GI today but unfortunately had to be delayed due to other emergent case. Continue Zosyn for now. Pain control. Continue fidaxomicin for C diff. Continue daily MELD labs. I spent a total of 52 minutes coordinating, documenting, and providing care for this patient excluding time spent in the performance of separately billed services or time spent by another provider/QHP. * Oswaldo Perez MD - 01/07/2025 7:54 AM EDT PROGRESS NOTE - Gastroenterology Service [facility] [place]-[address] [address] Name: Neha Marks Location: [facility] [place] [facility] G303/A Date: 01/07/2025 Time: 7:54 AM SUBJECTIVE: The patient was seen and examined, chart reviewed. Reports feeling well denies any acute complaints. Abdominal tenderness has improved ROS: As above otherwise negative OBJECTIVE: Vital Signs Last 24 Hours: Systolic BP: Most Recent Systolic BP Av.5 mmHg Min: 106 mmHg Max: 152 mmHg Temperature: Most Recent Temperature Av.2 C Min: 37.11 C Max: 37.5 C Pulse: Pulse Av.4 Min: 91 Max: 103 Respirations: Resp Av.7 Min: 16 Max: 24 SpO2: SpO2 Av.8 % Min: 91 % Max: 97 % General: resting comfortably, in no acute distress, visibly jaundiced HEENT: normocephalic, atraumatic Thorax: S1 + S2, no murmurs, CTAB, normal inspiratory effort Abdomen: Non-distended, soft, non-tender Extremities: No edema. Neurologic: Awake, Alert, and Oriented, following commands LABS: Labs reviewed as indicated below: Lab results within last 7 days (see chart for full results) Units 01/06/25 0559 01/05/252025 Protein g/dL 6.7 7.4 Bilirubin, Total mg/dL 1.2 1.0 Alkaline Phosphatase U/L 577* 620* AST U/L 127* 135* ALT U/L 44* 42* Lab results within last 7 days (see chart for full results) Units 01/06/25 0559 01/05/252025 HGB g/dL 10.6* 11.4* HCT % 34.3* 35.5* WBC K/uL 6.40 6.05 PLT K/uL 70* 66* Latest Reference Range & Units 10/11/24 12:20 01/05/25 20:26 Alpha-Fetoprotein Tumor Marker 0.0 - 8.3 ng/mL 678.6 (H) 10,274.0 (H) IMAGING: NM HEPATOBILIARY SYSTEM Result Date: 01/06/2025 IMPRESSION Scintigraphic findings suggestive acute cholecystitis. The critical results were relayedto Dr. Taran Hines via tigertext by William Begum at 1015 on 01/06/2025. Understanding was expressed. I have personally reviewed this examination and agree with the resident/fellow physician's interpretation. XR SHOULDER, 2 OR MORE VIEWS Result Date: 01/06/2025 IMPRESSION Lytic lesion in the right scapula at the base of the acromion with pathologic fracture. US ABDOMEN LIMITED Result Date: 01/06/2025 IMPRESSION 1. Cholelithiasis and borderline increased gallbladder wall thickness. No pericholecystic fluid. Negative sonographic sign. Findings are equivocal for acute cholecystitis and may be related to cirrhosis however consider correlation with HIDA scan if there is persistent concern for acute c holecystitis. 2. Cirrhosis. 2.4 cm hypoechoic mass in the right hepatic lobe consistent with known LI-RADS [address] ABD/PELVIS W IV CONTRAST - WO ORAL CONTRAST Result Date: 01/05/2025 IMPRESSION: 1. Extensive cirrhotic changes of the liver with 1.3 cm nodular density posterior exophytic right lobe may represent regenerating nodule but is nonspecific. MRI can further evaluate as clinically indicated. 2. Portal venous hypertension changes 3. Moderate abdominal and pelvic ascites 4. Luz hepatic adenopathy with nodes up to 5 cm in diameter. 5. Calcified gallstone with some pericholecystic fat ill distinctness which is nonspecific in the setting of ascites.Some linear calcification within the gallbladder wall is also suspected. If cholecystitis is suspected clinically ultrasound can further evaluate. THIS DOCUMENT HAS BEEN ELECTRONICALLY SIGNED BY NISA BAUTISTA MD CT CHEST WO CONTRAST Result Date: 01/05/2025 IMPRESSION: 1. Right posterior pleural-based mass with erosive/destructive changes of the right posterior 6th rib highly suspicious for neoplastic disease. 2. Right scapular lesion highly suspicious for bony metastasis. 3. Ground-glass 3 mm nodule left lung anteriorly nonspecific. 4. 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 THIS DOCUMENT HAS BEEN ELECTRONICALLY SIGNED BY NISA BAUTISTA MD XR CHEST 1 VIEW Result Date: 01/05/2025 IMPRESSION 1. No acute cardiopulmonary findings. 2. Large lytic lesion in the posterior right 6th rib. IMPRESSION: #Acute Hypoxemic Respiratory Failure #Decompensated Hep C Cirrhosis - MELD 11 Child Caldera Class A #Hep C s/p SVR 2014 (Harvoni 24 weeks) #HCC (segment 7 mass 8.5 x 5 cm, LR5 and left lobe lesion 1.2 x 1.8 LR3) with concern for metastasis to pleura and bone - BCLC-C #Cdiff Infection #Acute Cholecystitis Neha Marks is a 64 year old female with Hep C cirrhosis, chronic hep C s/p SVR in 11/2014 (with Harvoni 24 weeks), HCC (segment 7 mass 8.5 x 5 cm, LR5 and left lobe lesion 1.2 x 1.8 LR3) discussed in Tumor board recommending Y90 radioembolization and systemic therapy - on hold due to active C diff infection currently on fidaxomicin presenting with acute hypoxic respiratory failure and abdominal and chest pain. Patient originally scheduled for radio-embolization and systemic therapy but given new ascites concerning for decompensated cirrhosis and concurrent suspected neoplastic lesions in pleura and possibly scapula concerning for metastatic disease patient now [facility] Liver Cancer Stage C, and hence would preferentially benefit from systemic therapy over radio-embolization but given concurrent C-diff will likely have to hold off at this time. Additionally noted to have concerns of acute cholecystitis on HIDA scan. RECOMMENDATIONS/PLAN: - Recommend IR diagnostic paracentesis - particularly in the context of new ascites and abdominal pain and to rule out malignant ascites - Plan for Endoscopic Axios placement pending slot availability - Daily MELD 3.0 labs - Remainder of care per primary; hepatology to continue to follow I have discussed the case with my attending, Dr Perez. Gene Gilmore MD Internal Medicine PGY-2 Attending Attestation: I have discussed the patient's management with the medical trainee and agree with the note. Please refer to the documented findings and plan of care. The patient's bedside service today consisted of an evaluation. I was present and confirmed the findings of the history and exam. * Sunni Silva DDS - 01/07/2025 4:18 AM EDT PROGRESS NOTE - Trauma/Emergency Surgery [facility] [place]-[address] [address] Name: Neha Marks Location: [facility] [place] G303/A Date: 01/07/2025 Time: 4:18 AM DIAGNOSIS: Acute cholecystitis PROCEDURE: none this admission 24hr EVENTS: NAEON. On 4L/MIN NC sating at 97%. Remains afebrile. VSS, HDS. SUBJECTIVE: Endorses pain when coughing. Denies nausea and vomiting. OBJECTIVE: Most Recent Vital Signs: BP: 106 mmHg/71 mmHg (01/07/25209) Pulse: 100 (01/07/25209) Resp: 22 (01/07/25209) Temp: 37.17 C (01/07/25209) Temp Summary: Temp Min: 37.1 °C (98.8 °F) Max: 37.5 °C (99.5 °F) SpO2: 95 % (01/07/25209) O2 flow rate: 4 L/MIN (01/07/25209) Supplemental O2 Delivery: Nasal Cannula (01/07/25209) Vital Signs Last 24 Hours: Systolic BP: Most Recent Systolic BP Av mmHg Min: 106 mmHg Max: 178 mmHg Temperature: Most Recent Temperature Av.3 C Min: 37.11 C Max: 37.5 C Pulse: Pulse Av.8 Min: 92 Max: 108 Respirations: Resp Av.7 Min: 16 Max: 24 SpO2: SpO2 Av.6 % Min: 91 % Max: 96 % In / Out Past 24 Hrs: Intake/Output Summary (Last 24 hours) at 01/07/2025 0418 Last data filed at 01/06/2025 2225 Gross per 24 hour Intake 792.92 ml Output -- Net 792.92 ml Physical Exam: Constitutional: no acute distress HEENT: normal: normocephalic, atraumatic; no masses, tenderness, or adenopathy Neck: supple, normal range of motion CV: warm and well perfused Chest: normal respiratory effort Abdomen: soft, tender, non-distended Extremities: no edema, no clubbing, no cyanosis Skin: warm, dry: Neuro: alert, normal mental status exam LABS: Labs reviewed as indicated below: CBC Lab Results Component Value Date/Time WBC 6.40 01/06/2025 05:59 AM WBC 5.71 10/10/2020 09:12 AM WBC 9.4 11/22/1996 02:40 PM HGB 10.6 (L) 01/06/2025 05:59 AM HGB 14.0 10/10/2020 09:12 AM HGB 13.1 11/22/1996 02:40 PM HCT 34.3 (L) 01/06/2025 05:59 AM HCT 45.8 (H) 10/10/2020 09:12 AM HCT 38.4 11/22/1996 02:40 PM PLT 70 (L) 01/06/2025 05:59 AM PLT 75 (L) 10/10/2020 09:12 AM PLT 208 11/22/1996 02:40 PM BMP Lab Results Component Value Date/Time NA 141 01/06/2025 05:59 AM NA 142 10/10/2020 09:12 AM POTASSIUM 3.4 (L) 01/06/2025 05:59 AM POTASSIUM 4.1 10/10/2020 09:12 AM CL 106 01/06/2025 05:59 AM CL 104 10/10/2020 09:12 AM CO2 23 01/06/2025 05:59 AM CO2 27 10/10/2020 09:12 AM BUN 8 01/06/2025 05:59 AM BUN 9 10/10/2020 09:12 AM CREAT 0.5 01/06/2025 05:59 AM CREAT 0.8 10/10/2020 09:12 AM Ca, Mg, Phos Lab Results Component Value Date/Time CA 8.7 01/06/2025 05:59 AM CA 9.3 10/10/2020 09:12 AM MG 1.9 01/06/2025 05:59 AM MG 2.0 12/27/2010 12:15 PM PHOSPHORUS 2.9 01/06/2025 05:59 AM IMAGING: EXAM NM HEPATOBILIARY SYSTEM - 01/06/2025 9:26 am HISTORY r/o acute cholecystitis in the setting of hepatic malignancy / pathology COMPARISON US ABDOMEN LIMITED, ACC: [id number], dated 2025-01-06 02:59:09; CT ABD_PELVIS W IV CONTRAST - WO ORAL CONTRAST, ACC: [id number], dated 2025-01-05 22:31:04 TECHNIQUE Following the intravenous administration of 5.1 mCi of Tc-99m mebrofenin (Choletec), dynamic anterior imaging of the right upper quadrant was performed for 60 minutes. Subsequently, 3 mg of intravenous morphine was administered and imaging was continued. FINDINGS Prompt uptake of radiotracer seen throughout the hepatic parenchyma. The central biliary ducts and the common bile duct are visualized. Small bowel activity is seen at 17 minutes. The gallbladder is not seen. Filling and emptying of the a duodenal diverticulum is noted, not gallbladder. IMPRESSION IMPRESSION Scintigraphic findings suggestive acute cholecystitis. EXAM US ABDOMEN LIMITED-01/06/2025 3:24 am HISTORY concern for cholecystitis TECHNIQUE Sonogram of the right upper quadrant. COMPARISON CT ABD_PELVIS W IV CONTRAST - WO ORAL CONTRAST, ACC: [id number], dated 2025-01-05 22:31:04; MRI LIVER W WO CONTRAST, ACC: [id number], dated 2024-09-27 09:41:29 FINDINGS LIVER: Nodular surface contour and heterogenous echotexture consistent with cirrhosis. 2.4 x 2.0 x 1.3 cm hypoechoic mass in the right hepatic lobe. No focal lesion. BILE DUCTS: No intrahepatic or extrahepatic duct dilatation. The common bile duct measures 5 mm. GALLBLADDER: Cholelithiasis an borderline increased gallbladder wall thickness. No pericholecystic fluid. Negative sonographic sign. There is wall calcifications at the gallbladder fundus. PANCREAS: Pancreatic duct is at the upper limits of normal in caliber measuring up to 3 mm. RIGHT KIDNEY: 10.8 cm in length. No hydronephrosis, shadowing calculi, or focal lesion. OTHER: No ascites noted.. IMPRESSION IMPRESSION 1. Cholelithiasis and borderline increased gallbladder wall thickness. No pericholecystic fluid. Negative sonographic sign. Findings are equivocal for acute cholecystitis and may be related to cirrhosis however consider correlation with HIDA scan if there is persistent concern for acute cholecystitis. 2. Cirrhosis. 2.4 cm hypoechoic mass in the right hepatic lobe consistent with known LI-RADS 5 lesion. ROCEDURE INFORMATION: Exam: CT Abdomen And Pelvis With Contrast Exam date and time: 01/05/2025 10:31 PM Age: 64 years old Clinical indication: Condition or disease; Gallbladder condition; Calculus (stone); Additional info: Gallstone on previous imaging with increased lfts. TECHNIQUE: Imaging protocol: Computed tomography of the abdomen and pelvis with contrast. Radiation optimization: All CT scans at this facility use at least one of these dose optimization techniques: automated exposure control; mA and/or kV adjustment per patient size (includes targeted exams where dose is matched to clinical indication); or iterative reconstruction. Contrast material: ISOVUE 370; Contrast volume: 80 ml; Contrast route: INTRAVENOUS (IV); COMPARISON: MRI LIVER W WO CONTRAST 06/05/2021 9:40 AM FINDINGS: Lungs: Dependent peripheral lung consolidation presumably atelectasis. Liver: Extensive cirrhotic changes of the liver with portal hypertension and perihepatic fluid. 1.3 cm nodular density adjacent to the right lobe liver possibly regenerating nodule, nonspecific. Gallbladder and biliary ducts: Calcified gallstone within the gallbladder with some possible gallbladder wall calcification and some ill distinct fat around the gallbladder which is a nonspecific finding in the setting of ascites. Pancreas: Normal. No ductal dilation. Spleen: Normal. No splenomegaly. Adrenal glands: Normal. No mass. Kidneys and ureters: Normal. No hydronephrosis. Stomach and bowel: Unremarkable. No obstruction. No mucosal thickening. Appendix: No evidence of appendicitis. Intraperitoneal space: Moderate pelvic ascites Vasculature: Numerous enhancing vessels in the pelvic consistent with dilated periuterine venous plexus. Lymph nodes: Luz hepatic adenopathy with nodes up to 5 cm in diameter. Urinary bladder: Unremarkable as visualized. Reproductive: Unremarkable as visualized. Bones/joints: Unremarkable. No acute fracture. Soft tissues: Unremarkable. IMPRESSION IMPRESSION: 1. Extensive cirrhotic changes of the liver with 1.3 cm nodular density posterior exophytic right lobe may represent regenerating nodule but is nonspecific. MRI can further evaluate as clinically indicated. 2. Portal venous hypertension changes 3. Moderate abdominal and pelvic ascites 4. Luz hepatic adenopathy with nodes up to 5 cm in diameter. 5. Calcified gallstone with some pericholecystic fat ill distinctness which is nonspecific in the setting of ascites.Some linear calcification within the gallbladder wall is also suspected. If cholecystitis is suspected clinically ultrasound can further evaluate. 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 * 64 year old female with history of hepatitis C cirrhosis and segment 7 HCC with ascites who is presenting with RUQ pain. Imaging today shows cholelithiasis and some pericholecystic fluid, although this is non specific in there setting of ascites. She has no leukocytosis. She is moderately tender topalpation in the RUQ. She is actively undergoing treatment for c diff infection with fidaxomicin. It is hard differentiate cancer related pain from possible cholecystitis related pain. Patient does not appear toxic at this time. In the setting of cirrhosis with ascites and HCC, patient is an extremely high risk surgical candidate. PLAN: - Plan of care to be discussed with GI and IR. Diet: NPO except meds IVF: none Stress Ulcer Prophylaxis: none Bowel Regimen: none DVT Prophylaxis: Lovenox Abx: Zosyn Home Meds: - Resumed: fidaxomicin, gabapentin, venlafaxine, coreg, seroquel - Held: ventolion Pt seen and discussed with Dr Ned Silva DDS Cosigned by Zain Marino MD at 01/07/2025 11:00 AM EDT Associated attestation - Zain Marino MD - 01/07/2025 11:00 AM EDT I saw and evaluated the patient today. I have reviewed the resident/fellow physician note and agree. - Possible axios with GI today - NPO for procedure - Please call with any questions or concerns documented in this encounter H&P Notes * Dov Dalton DO - 01/12/2025 8:30 AM EDT HISTORY & PHYSICAL - Vascular and Interventional Radiology Name: Neha Marks Location: IR HISTORY OF PRESENT ILLNESS: Neha Marks is a 64 year old year old history of HCC with new bony lesions involving the right 6th rib and scapula seen today in IR for biopsy of the right scapular lesion. Neha Marks is otherwise in normal state of health, denying symptoms of chest pain, SOB, fevers, chills. Patient endorses nausea without vomiting. Past Medical History: Diagnosis Date Benign neoplasm [...] performed by Leandro Torres MD at [facility] EGD, FLEXIBLE, DIAGNOSTIC 05/06/2019 normal bx/ESOPHAGOGASTRODUODENOSCOPY (EGD), FLEXIBLE, TRANSORAL, DIAGNOSTIC performed by Leandro Torres MD at [facility] EGD, FLEXIBLE, DIAGNOSTIC 06/20/2022 Portal hypertensive gastropathy, eso varices / ESOPHAGOGASTRODUODENOSCOPY (EGD), FLEXIBLE, TRANSORAL, DIAGNOSTIC performed by Leandro Torres MD at [facility] LASIK SURGERY THUMB FX/DISLOC (MELÉNDEZ), REPAIR [...] of patient's allergies indicates: No Known Allergies Prior to Admission medications Medication Sig Last Dose Discont. Fidaxomicin 200 MG Oral Tablet (Dificid) Take 1 Tablet by mouth in the morning and 1 Tablet before bedtime. 01/05/2025 Morning Ventolin HFA 108 (90 Base) MCG/ACT Inhalation Aerosol Solution Inhale 2 Puffs by mouth every 4 hours as needed for Wheezing. Past Week Gabapentin 100 MG Oral Capsule (Neurontin) Take 1 Capsule by mouth in the morning and 1 Capsule at noon and 1 Capsule before bedtime. Slowly increase the dose over 3 weeks--Start with one capsule in the evening for the first week. Add the afternoon dose on week 2 and the morning dose on week 3.. 01/05/2025 Noon Venlafaxine HCl ER 150 MG Oral Capsule Extended Release 24 Hour (Effexor XR) TAKE 1 CAPSULE BY MOUTH EVERY DAY DO NOT CUT, CRUSH, OR CHEW 01/04/2025 Evening Venlafaxine HCl ER 75 MG Oral Capsule Extended Release 24 Hour (Effexor XR) TAKE 1 CAPSULE BY MOUTHDAILY. DO NOT CUT, CRUSH OR CHEW (TAKE WITH [id number]=222NN DAILY) 01/04/2025 Evening Carvedilol 6.25 MG Oral Tablet (Coreg) Take 1 Tablet by mouth 2 times a day with morning and evening meals. 01/05/2025 Morning QUEtiapine Fumarate 25 MG Oral Tablet (SEROquel) Take 1 Tablet by mouth at bedtime. 01/04/2025 Bedtime Multiple Vitamins-Minerals (CENTRUM ADULTS) TABS Take 1 Tablet by mouth in the morning. 01/05/2025 Morning REVIEW OF SYSTEMS: Per HPI. OBJECTIVE: PHYSICAL EXAM: BP 111/67 | Pulse 100 | Temp 36.6 °C (97.8 °F) (Tympanic) | Resp 20 | Ht 1.6 m (5' 3") | Wt 77.8 kg (171 lb 8 oz) | SpO2 91% | BMI 30.38 kg/m² | BSA 1.86 m² Constitutional: no acute distress HEENT: mucous membranes moist Neck: supple CV: regular Chest: normal respiratory effort Neuro: alert and oriented Medications, labs and imaging were reviewed. PRE-SEDATION ASSESSMENT: Right Scapular Lesion Biopsy Level of sedation planned: Moderate Patient's allergies reviewed: Yes H&P Review / Interval Note Documentation: I have reviewed the H&P previously performed, examined the patient today, and there are no new findings. Difficulty with sedation / anesthesia: No Sleep apnea: No History of snoring: No History of difficult intubation: No Decreased ROM neck flexion/extension: No Tracheal deviation: No Decreased ability to open mouth / TMJ: No Loose teeth / dentures / partial: Yes Congenital deformities / abnormalities: No Dysphagia: No Comments: Dentures Mallampati Classification: II - soft palate, uvula, fauces visible Chest: Clear Heart: Regular Rhythm ASA Risk Stratification (Select One): ASA 3 - Severe systemic disease, definite functional limitations The patient was identified and the procedure verified: Yes IMPRESSION/PLAN: Neha Marks is a 64 year old year old history of HCC with new bony lesions involving the right 6th rib and scapula seen today in IR for biopsy of the right scapular lesion. Okay to proceed under moderate sedation. Cosigned by Jay Kincaid MD at 01/12/2025 8:45 AM EDT Associated attestation - Jay Kincaid MD - 01/12/2025 8:45 AM EDT I saw and evaluated the patient today. I have reviewed the resident/fellow physician note and agree. * Roxanne Owen MD - 01/06/2025 5:04 AM EDT Images from the original note were not included. [facility] [place] 29/X PRESENTING PROBLEM: right sided Chest/ arm pain and fever HPI: 63-year-old female Ms. Solomon with past medical history of Generalized anxiety disorder cirrhosis of liver Mood disorder Portal hypertension Thrombocytopenia Major depressive disorder HTN History of hepatocellular cancer, hepatitis-C virus infection C difficile infection Comes to the [facility] ED for evaluation of fever and chest pain. Neha comes in for her evaluation of right-sided chest pain along with ongoing right shoulder painwhich has been making her movements query painful. She reports that chest pain started a few days ago, nonradiating, on the right side, 10/10-improvedwith fentanyl/morphine prior to and on arrival. She reports to be compliant to her medication and recently started on Coreg for her high blood pressure which she had not been able to take at home prior to her arrival. She does not have any subjective fevers, afebrile on arrival. She is also compliant to her C diff medications and reports that the symptoms are getting better. She however feels extremely weak and short of breaths however not dyspneic on arrival. She reports that she had 6 bowel movements yesterday. Also notes that she has had persistently frequent loose bowel movements that are foul-smelling. Patient denies history of palpitations, headache, dizziness, abdominal pain, nausea, vomiting, diarrhea, constipation, recent surgery, recent travel, recent change in medications, recent new drug use, skin changes. Patient does not have a similar history in the past. labs on arrival blood culture extra 01/06: No growth, urinalysis with a normal limit, respiratory pathogen panel-negative, troponin 6, comprehensive metabolic panel potassium 3.4, AST 135, ALT 42, alkaline phosphatase 620, INR 1.3, APTT 34, CBC-hemoglobin 11.4, platelets 66 K, lactate 1.5, VBG within normal limit. EKG shows normal sinus rhythm with QTC 449. Imaging on arrival showed ultrasound abdomen: Cholelithiasis and borderline increased gallbladder wall thickness, no per cholecystic fluid, CT abdomen pelvis with IV contrast: Extensive cirrhotic changes of liver with 1.3 cm nodular density right lobe CT chest without contrast right posterior pleural based mass with erosive/destructive changes of the right posterior 6th rib-neoplastic disease suspicion+ Chest x-ray no acute cardiopulmonary pathology, large lytic lesion in the posterior right 6th rib. In the ED, Oxygen supplement 3 L (on arrival), morphine 4 mg, Tylenol 1000 mg IV, DuoNeb X 2, fentanyl 50 mcg X 2, Dilaudid 1 mg, IV contrast 80 mL, NSS bolus 2300 mL, Zosyn, vancomycin given. Of note : Previous have Oncology evaluation November 13: proceed with radioembolization with yttrium-90 microsphere and she is referred to Medical Oncology for systemic chemotherapy. ID evaluation 01/04 : diarrhea in July 2024 and was diagnosed with C Diff in November 2024 and was started on 10 days of oral vancomycin and when her symptoms did not resolve she was treated with oral vancomycin taper which she took for 5 weeks without symptom improvement and so she was switched to fidaxomicin which she only started yesterday but has already seen improvement. She was encouraged to continue to fidaxomicin until 01/13/25 and to schedule her radiology appointment [facility] as her symptoms are improving. Avoid antibiotics unless necessary. GI/hepatology evaluation 10/2024: suspect advanced stage (C) HCC. EGD 2021 : Grade I esophageal varices. Portal hypertensive gastropathy. Normal examined duodenum. Patient was discussed at HCC tumor board on 11/03. IR recommends radiation segmentectomy (y90) with referral to medical oncology for combination systemic therapy. Patient is admitted under the impression of rib fracture in the setting of cirrhosis and history ofliver cancer-rule out metastasis/malignancy, and confirms to be full code. -------- Subjective Patient's past history, medications, and allergies were reviewed. Objective Physical Exam Most Recent Vital Signs: BP: 154 mmHg/61 mmHg (01/06/25 0600) Pulse: 94 (01/06/25 0600) Resp: 20 (01/06/25 0500) Temp: 36.5 C (01/06/25 0208) Temp Summary: Temp Min: 36.5 °C (97.7 °F) Max: 36.5 °C (97.7 °F) SpO2: 94 % (01/06/25 0600) O2 flow rate: 3 L/MIN (01/06/25 06) Supplemental O2 Delivery: Nasal Cannula (01/06/25 06) Constitutional: In mild distress due to pain, comfortable ENT: No pharyngeal erythema, neck supple Respiratory: Bilateral decreased air entry,+ rhonchi and wheezing Cardiovascular: S1,S2 normal,RRR Abdomen: Soft, + right upper quadrant tenderness, normal to hyperactive bowel sounds, distended, fluid thrill+ Musculoskeletal: + right shoulder tenderness Decreased ROM right shoulder (secondary to pain). Extremity/skin: No Pedal edema, skin intact Neurology: AOx3, grossly unremarkable motor and sensory exam. Bilateral upper extremity strength normal STUDIES: Encounter Orders Labs and other studies reviewed with pertinent findings noted below: As above MELD 3.0: 10 at 01/05/2025 8:26 PM Calculated from: Serum Creatinine: 0.7 mg/dL (Using min of 1 mg/dL) at 01/05/2025 8:26 PM Serum Sodium: 137 mmol/L at 01/05/2025 8:26 PM Total Bilirubin: 1 mg/dL at 01/05/2025 8:26 PM Serum Albumin: 4.1 g/dL (Using max of 3.5 g/dL) at 01/05/2025 8:26 PM INR(ratio): 1.3 at 01/05/2025 8:26 PM Age at listing (hypothetical): 64 years Sex: Female at 01/05/2025 8:26 PM Assessment and Plan IMPRESSION: Principal Problem: Acute hypoxic respiratory failure (HCC) Active Problems: Generalized anxiety disorder Other cirrhosis of liver (HCC) Mood disorder (HCC) Portal hypertension (HCC) Thrombocytopenia (HCC) Major depressive disorder with single episode HTN, goal below 130/80 Elevated transaminase level Cholelithiasis Resolved Problems: * No resolved hospital problems. * DIFFERENTIAL AND PLAN: Acute hypoxic respiratory failure (2-4 L on admission) Cholelithiasis Right 6th rib pathologic fracture, Hepatic and lung nodules Elevated transaminase level Right-sided Chest pain, right shoulder pain Ascites History of cirrhosis and hepatocellular cancer Sepsis on arrival to ED [facility] admit telemetry monitoring currently hemodynamically stable wean O2 as tolerated Monitor I&O procalcitonin Monitor fever curve MELD labs, AFP, LD, uric acid, follow up blood culture MRSA wean O2 as tolerated Oncology, Hepatology, palliative evaluation consider ID evaluation if febrile /determination on need for antibiotics in the setting recurrent Cdifficile appreciate surgery evaluation on arrival HIDA scan ordered right shoulder x-ray pain control as needed Chest XR without acute findings No clinical or radiologic evidence of pneumonia; will monitor off abx Wean oxygen to SpO2 88-92 Duonebs q6h standing and PRN albuterol Consider Steroids if persistently needing O2 supplement (reports to have history of emphysema and history of smoking) Respiratory patient driven protocol; IS, flutter therapy, chest PT, OOB Pulmonary consult if persistent O2 requirement PT/OT Chronic medical condition : 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 vancomycin, fidaxomicin PHARMACOLOGIC VTE PROPHYLAXIS:Enoxaparin CODE STATUS: Full Code EXPECTED DISCHARGE DATE: No information available I personally interpreted the imaging CT abdomen/pelvis/chest dated 01/05, suggestive of lytic lesionposterior 6th rib in the current presentation of chest pain in the setting of history of liver cancer and cirrhosis. I also personally interpreted EKG normal sinus rhythm/non ischemic. I personally interpreted the labs CBC, CMP, INR, dated 01/05 which are pertinent for thrombocytopenia, elevated transaminases, INR. / Patient is admitted to the hospital - for management of chest pain, hepatic function. To be Monitored for liver function tests, pain, chest pain. I discussed that the goals of care with the patient/ family and determines to be full code. I spent a total of 82 minutes coordinating, documenting, and providing care for this patient excluding time spent in the performance of separately billed services or time spent by another provider/QHP. documented in this encounter Procedure Notes * Ortega Siddiqui MD - 01/09/2025 9:35 AM EDTAssociated Order(s): EKG REASON FOR STUDY: Notify provider if obtaining EKG;Chest pain CONCLUSIONS: Normal sinus rhythm Normal ECG When compared with ECG of 05-Jan-2025 20:32, No significant change was found Ventricular Rate: 92 Atrial Rate: 92 TX Interval: 138 QRS Duration: 84 QT/QTc: 350/432 ms P-R-T [place]: 62 : 51 : 13 degrees documented in this encounter Consult Notes * Jose Quiroz MD - 01/10/2025 5:43 PM EDTAssociated Order(s): INFECTIOUS DISEASE CONSULT IP CONSULT - Infectious Disease [facility] [place] [id number] Name: Neha Marks Location: [facility] G303/A Date: 01/10/2025 Time: 5:45 PM CLINICAL TEAM: Infectious Diseases Team 1 REQUESTING SERVICE: Andrzej Coy REASON FOR CONSULT: persistent diarrhea, hx of clostridium difficile with vancomycin failure, on fidaxomycin. Please evaluate for treatment failure vs need for extended course HPI: Patient is a 64 year old female admitted to the hospital on 01/06/2025. She has a past medical history of hepatocellular carcinoma, liver cirrhosis, GERD, portal hypertension, hypertension. She initially developed diarrhea in July 2024, approximately 8 watery stools a day, that time she did not seek medical attention thinking it was related to her liver cirrhosis. Her PCP tested her for C diff and she tested positive and started on 10 days of oral vancomycin which did not make a difference in her symptoms. She was then placed on oral vancomycin taper on 12/01/2024 which she took for 5 weeks but continued to have loose stools around 7-8 episodes a day. Recently seen by ID on January 04, 2025 and she was switched to fidaxomicin until 01/13/2025. Infectious Disease was consulted today for ongoing diarrhea despite being on fidaxomicin. She was seen on bedside today. She was tearful due to her cancer. She denied any fever, chills, nausea, vomiting, urinary problem. She did complain of diarrhea around 3-4 episodes since this morning which werewatery and abdominal pain. ALLERGIES: Patient has no known allergies. 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-repeat 3 years Chronic hepatitis C (HCC) Generalized anxiety disorder 07/03/2009 Menopause 09/11/2009 Age 46 OTHER 11/15/09 Genotype 1a Pneumonia due to organism as a child PAST SURGICAL HISTORY: Past Surgical History: Procedure Laterality Date COLONOSCOPY W/ LESION REMOVAL, SNARE 05/20/2011 adentomatous tissue--repeat 3 years COLONOSCOPY, DIAGNOSTIC (RECTUM) 05/06/2019 hyperplastic polyps, repeat 5 yrs/COLONOSCOPY FLEXIBLE PROXIMAL DIAGNOSTIC performed by Leandro Torres MD at [facility] EGD, FLEXIBLE, DIAGNOSTIC 05/06/2019 normal bx/ESOPHAGOGASTRODUODENOSCOPY (EGD), FLEXIBLE, TRANSORAL, DIAGNOSTIC performed by Leandro Torres MD at [facility] EGD, FLEXIBLE, DIAGNOSTIC 06/20/2022 Portal hypertensive gastropathy, eso varices / ESOPHAGOGASTRODUODENOSCOPY (EGD), FLEXIBLE, TRANSORAL, DIAGNOSTIC performed by Leandro Torres MD at [facility] LASIK SURGERY THUMB FX/DISLOC (MELÉNDEZ), REPAIR 2000 rt SOCIAL HISTORY: Social History Tobacco Use Smoking status: Every Day Current packs/day: 0.50 Average packs/day: 0.5 packs/day for 20.0 years (10.0 ttl pk-yrs) Types: Cigarettes Passive exposure: Never Smokeless tobacco: Never Tobacco comments: 10 per day Vaping Use Vaping status: Never Used Substance Use Topics Alcohol use: No Drug use: No FAMILY HISTORY and FAMILY STATUS: Family History Problem Relation Name Age of Onset No Past Hx Mother Gastro-intestinal disorder Father of cirrhosis in fifties, etoh Lung Disorder Sister copd Family Status Relation Status Mo (Not Specified) Fa (Not Specified) Sis (Not Specified) Sis (Not Specified) ROS: Negative except mentioned in HPI. PHYSICAL EXAMINATION: Most Recent Vital Signs: BP: 133 mmHg/69 mmHg (01/10/25 1507) Pulse: 102 (01/10/25 1507) Resp: 20 (01/10/25 1507) Temp: 37.28 C (01/10/25 1507) Temp Summary: Temp Min: 36.7 °C (98.1 °F) Max: 37.3 °C (99.1 °F) SpO2: 93 % (01/10/25 1507) O2 flow rate: 1 L/MIN (01/09/25 1036) Supplemental O2 Delivery: Room Air, None (01/10/25 1507) Vital Signs Last 24 Hours: Systolic BP: Most Recent Systolic BP Av.6 mmHg Min: 126 mmHg Max: 158 mmHg Temperature: Most Recent Temperature Av C Min: 36.72 C Max: 37.28 C Pulse: Pulse Av.6 Min: 90 Max: 105 Respirations: Resp Av.8 Min: 20 Max: 22 SpO2: SpO2 Av.6 % Min: 82 % Max: 95 % General: Chronically ill-appearing, Appears in no acute distress Eyes: Pupils equal and reactive to light Cardiovascular: S1/S2, no murmurs appreciated Respiratory: Bibasilar crackles otherwise clear. Abdomen: distended, soft, nontender no guarding or rigidity Musculoskeletal: No gross deformity Skin: No rashes, lesions Neurological: AAOx3, clear speech, sensory intact, motor 5/5, no focality LABS: Labs reviewed as indicated below: Lab results within last 7 days (see chart for full results) Units 01/10/25 0602 01/09/25 0459 01/09/25 0458 01/08/25 0552 01/07/25 0848 01/06/25 0559 WBC K/uL 4.79 -- 4.50 4.80 5.97 6.40 CREATININE mg/dL 0.5 0.6 -- 0.6 0.8 0.5 BUN mg/dL 9 9 -- 11 11 8 EGFR mL/min >90 >90 -- >90 88 >90 MICROBIOLOGY DATA: No results found for the last 90 days. Recent Cultures (2 Weeks) 01/05/2025 01/05/2025 8:47 PM 8:26 PM BLOOD CULTURE GROWTH No growth to date No growth to date IMAGING: PROCEDURE INFORMATION: Exam: CT Abdomen And Pelvis With Contrast Exam date and time: 01/05/2025 10:31 PM IMPRESSION: 1. Extensive cirrhotic changes of the liver with 1.3 cm nodular density posterior exophytic right lobe may represent regenerating nodule but is nonspecific. MRI can further evaluate as clinically indicated. 2. Portal venous hypertension changes 3. Moderate abdominal and pelvic ascites 4. Luz hepatic adenopathy with nodes up to 5 cm in diameter. 5. Calcified gallstone with some pericholecystic fat ill distinctness which is nonspecific in the setting of ascites.Some linear calcification within the gallbladder wall is also suspected. If cholecystitis is suspected clinically ultrasound can further evaluate. IMPRESSION: 64 year old female history of per dL carcinoma, decompensated cirrhosis, HCV initially developed diarrhea in July 2024, approximately 8 watery stools a day, that time she did not seek medical attention thinking it was related to her liver cirrhosis. Her PCP tested her for C diff and she tested positive and started on 10 days of oral vancomycin which did not make a difference in hersymptoms. She was then placed on oral vancomycin taper on 12/01/2024 which she took for 5 weeks butcontinued to have loose stools around 7-8 episodes a day. Recently seen by ID on January 04, 2025 and she was switched to fidaxomicin until 01/13/2025. She transferred from [place] for acute cholecystitis and need for GI/General Surgery evaluation given complexity of possible intervention in the setting of cirrhosis with ascites. Hospital course complicated by finding of new right pleural based mass, right 6th rib invasion with destruction, right scapular lesion concerning for metastasis of episodic carcinoma. Currently she is on Zosyn for acute cholecystitis. 1. Acute cholecystitis 2. Hepatocellular carcinoma 3. C diff infection RECOMMENDATIONS: -It is very unlikely that patient did not respond on vancomycin/fidaxomicin for C diff. However, she is on IV antibiotics for acute cholecystitis that can cause diarrhea but very unlikely. -We recommend taking GI on board to discuss other causes of diarrhea other than C diff infection. -Continue fidaxomicin at current dosage as previously planned by Infectious Disease. -We will follow closely Jose Quiroz MD Infectious Disease PGY-4 [facility] Cosigned by Aidan Ervin DO at 01/10/2025 7:55 PM EDT Associated attestation - Aidan Ervin DO - 01/10/2025 7:55 PM EDT I saw and evaluated the patient today. I have reviewed the resident/fellow physician note and agree. * Polly Rivera CRNP - 01/10/2025 2:43 PM EDTAssociated Order(s): RADIATION ONCOLOGY CONSULT IP RADIATION ONCOLOGY CONSULT [address] [id number] Name: Neha Marks Location: [facility] G303/A Date: 01/10/2025 Time: 2:43 PM REQUESTING SERVICE: Medicine REASON FOR CONSULT: "64 yo f with HCC, please evaluate for possible palliative treatment of 6th ribmass and scapula" HPI: 64F with HCC, diagnosed in 09/2024, CT chest 09/2024 showed no evidence of metastatic disease,was planning radioembolization with yttrium-90 microspheres and follow up with med/onc for systemictherapy. However, patient developed C diff diarrhea which has postponed this treatment. PMH significant for anxiety, cirrhosis, thrombocytopenia, HTN, chronic hep C infection. Patient presented to [facility] ED with R chest and shoulder pain. Imaging showed moderate ascites, luz hepatic adenopathy, ryley R posterior pleural based mass with erosive/destructive changes in the R posterior 6th rib suspicious for neoplastic disease, and R scapular lesion highly suspicious for bony metastasis. Patient was transferred to [facility] for further management. Rad/onc consulted for evaluation and treatment recommendations. Patient reports R lateral chestwall and R scapula pain 03/29. Patient denies any fever, chills, shortness of breath, chest pain or cough. Patient denies any BEAUCHAMP, N/V, altered vision or gait. Patient denies any new focal musculoskeletal aches or pains or new focal numbness or weakness. 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-repeat 3 years Chronic hepatitis C (HCC) Generalized anxiety disorder 07/03/2009 Menopause 09/11/2009 Age 46 OTHER 11/15/09 Genotype 1a Pneumonia due to organism as a child PAST SURGICAL HISTORY: Past Surgical History: Procedure Laterality Date COLONOSCOPY W/ LESION REMOVAL, SNARE 05/20/2011 adentomatous tissue--repeat 3 years COLONOSCOPY, DIAGNOSTIC (RECTUM) 05/06/2019 hyperplastic polyps, repeat 5 yrs/COLONOSCOPY FLEXIBLE PROXIMAL DIAGNOSTIC performed by Leandro Torres MD at [facility]COPY [facility] EGD, FLEXIBLE, DIAGNOSTIC 05/06/2019 normal bx/ESOPHAGOGASTRODUODENOSCOPY (EGD), FLEXIBLE, TRANSORAL, DIAGNOSTIC performed by Leandro Torres MD at [facility]COPY [facility] EGD, FLEXIBLE, DIAGNOSTIC 06/20/2022 Portal hypertensive gastropathy, eso varices / ESOPHAGOGASTRODUODENOSCOPY (EGD), FLEXIBLE, TRANSORAL, DIAGNOSTIC performed by Leandro Torres MD at [facility]COPY [facility] LASIK SURGERY THUMB FX/DISLOC (MELÉNDEZ), REPAIR 2000 rt FAMILY HISTORY: Family History Problem Relation Name Age of Onset No Past Hx Mother Gastro-intestinal disorder Father of cirrhosis in fifties, etoh Lung Disorder Sister copd SOCIAL HISTORY: Social History Tobacco Use Smoking status: Every Day Current packs/day: 0.50 Average packs/day: 0.5 packs/day for 20.0 years (10.0 ttl pk-yrs) Types: Cigarettes Passive exposure: Never Smokeless tobacco: Never Tobacco comments: 10 per day Vaping Use Vaping status: Never Used Substance Use Topics Alcohol use: No Drug use: No ALLERGIES: Patient has no known allergies. ROS: As per HPI MEDICATIONS: Medications were reviewed. Current Facility-Administered Medications Medication Dose Route Frequency Provider Last Rate Last Admin Saline (Nasogel) nasal gel Each Nostril PRN Gibran Vital DO albuterol-ipratropium (Duoneb) inhalation solution 3 mL 3 mL Nebulizer BID(AM/PM) Gibran Vital DO 3 mL at 01/10/25 0750 Morphine Sulfate (Msir) tab 7.5 mg 7.5 mg Oral Q6H Gibran Vital DO 7.5 mg at 01/10/25 1213 naloxone (Narcan) 0.4 MG/ML inj 0.4 mg 0.4 mg IV Push PRN Sophia Riley MD Albuterol Sulfate (Proventil) (2.5 MG/3ML) 0.083% inhalation solution 2.5 mg 2.5 mg Nebulizer Q4H PRN Roxanne Owen MD 2.5 mg at 01/06/25 1224 Carvedilol (Coreg) tab 6.25 mg 6.25 mg Oral BID (AM/PM meals) Roxanne Owen MD 6.25 mg at 01/10/25 0843 Enoxaparin (Lovenox) inj 40 mg 40 mg Subcutaneous Daily(AM) Roxanne Owen MD 40 mg at 01/10/25 0843 Fidaxomicin (Dificid) tab 200 mg 200 mg Oral BID(AM/PM) Roxanne Owen MD 200 mg at 01/10/25 0842 Gabapentin (Neurontin) cap 100 mg 100 mg Oral TID(AM/NOON/HS) Roxanne Owen MD 100 mg at 01/10/25 1213 morphine sulfate inj 2 mg 2 mg IV Push Q4H PRN Roxanne Owen MD 2 mg at 01/10/25 1019 multivit w/min (Therapeutic-M) 1 Tablet 1 Tablet Oral Q24H Roxanne Owen MD 1 Tablet at 01/10/25 1213 ondansetron (Zofran) inj 4 mg 4 mg IV Push Q6H PRN Roxanne Owen MD 4 mg at 01/06/25 1854 oxygen GAS Inhalation Oxygen Singh Zamora DO Oxygen On at 01/10/25 1513 Piperacillin-Tazobactam (Zosyn) 4.5 g in 100 mL NSS ivpb (FOUR hour infusion) 4.5 g IV Piggyback Q8H Now Jesus Bob PA-C 26.25 mL/hr at 01/10/25 1010 4.5 g at 01/10/25 1010 QUEtiapine (SEROquel) tab 25 mg 25 mg Oral HS Roxanne Owen MD 25 mg at 01/09/25 2020 sodium chloride 0.9 % flush/inj 3 mL 3 mL IV Push PRN Roxanne Owen MD venlafaxine XR (Effexor XR) cap 225 mg 225 mg Oral Daily(AM) Roxanne Owen MD 225 mg at 01/10/25 0843 ZUBROD PERFORMANCE SCALE: 3 - capable of only limited self-care, confined to bed or chair more than 50% of waking hours PHYSICAL EXAMINATION: Most Recent Vital Signs: BP: 136 mmHg/60 mmHg (01/10/25 1046) Pulse: 95 (01/10/25 1046) Resp: 22 (01/10/25 1046) Temp: 36.72 C (01/10/25 1046) Temp Summary: Temp Min: 36.7 °C (98.1 °F) Max: 37.1 °C (98.8 °F) SpO2: 93 % (01/10/25 1046) O2 flow rate: 1 L/MIN (01/09/25 1036) Supplemental O2 Delivery: Room Air, None (01/10/25 0750) Weight: 84.4 kg (186 lb) (01/10/25 0900) Weight: weight recently stable General: alert and oriented, no apparent distress, cognition normal, and speech normal Eyes: sclera non-icteric bilaterally Head and face: facial strength symmetric, + palpable solid mass L frontal head Lymphatics: no cervical adenopathy and no supraclavicular adenopathy Lower extremities: non-edematous bilaterally and palpable peripheral pulses bilaterally Upper extremities: non-edematous bilaterally and normal range of motion LABS: Labs reviewed as indicated below: CBC Results: Results for orders placed or performed during the hospital encounter of 01/06/25 CBC Result Value Ref Range WBC 4.79 4.00 - 10.80 K/uL RBC 3.44 3.85 - 5.15 M/uL HGB 10.4 (L) 12.0 - 15.3 g/dL HCT 32.0 (L) 36.0 - 45.2 % MCV 93.0 81.5 - 97.5 fL MCH 30.2 27.0 - 34.0 pg MCHC 32.5 32.0 - 36.0 g/dL RDW 16.2 11.5 - 15.5 % PLT 79 (L) 140 - 400 K/uL MPV 12.9 6.6 - 11.1 fL nRBCs 0 <=0 /100 WBCs IMAGING: I personally reviewed the following images and diagnostic studies. (Impression copies from medical chart) 01/05/25 CT chest IMPRESSION: 1. Right posterior pleural-based mass with erosive/destructive changes of the right posterior 6th rib highly suspicious for neoplastic disease. 2. Right scapular lesion highly suspicious for bony metastasis. 3. Ground-glass 3 mm nodule left lung anteriorly nonspecific. 4. 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 01/05/25 CT A/P IMPRESSION: 1. Extensive cirrhotic changes of the liver with 1.3 cm nodular density posterior exophytic right lobe may represent regenerating nodule but is nonspecific. MRI can further evaluate as clinically indicated. 2. Portal venous hypertension changes 3. Moderate abdominal and pelvic ascites 4. Luz hepatic adenopathy with nodes up to 5 cm in diameter. 5. Calcified gallstone with some pericholecystic fat ill distinctness which is nonspecific in the setting of ascites.Some linear calcification within the gallbladder wall is also suspected. If cholecystitis is suspected clinically ultrasound can further evaluate. 01/06/25 XR Shoulder IMPRESSION Lytic lesion in the right scapula at the base of the acromion with pathologic fracture. IMPRESSION: 64F with HCC, diagnosed in 09/2024, CT chest 09/2024 showed no evidence of metastatic disease, was planning radioembolization with yttrium-90 microspheres and follow up with med/onc for systemic therapy. However, patient developed C diff diarrhea which has postponed this treatment. Now with newly found R posterior 6th rib suspicious for neoplastic disease, and R scapular lesion highly suspicious for bony metastasis. PMH significant for anxiety, cirrhosis, thrombocytopenia, HTN, chronic hep C infection. PLAN: Patient was discussed with Dr Juarez. Recommend biopsy of bony lesion. Palpable mass L frontal head, recommend CT head and AFP. Can offer palliative RT to R scapula and R posterior 6th rib. The role of radiation therapy in this situation was briefly discussed with the patient, spouse, anddaughter. Thank you for having asked us to take part in this patient's care. I spent a total of 66 minutes coordinating, documenting, and providing care for this patient excluding time spent in the performance of separately billed services or time spent by another provider/QHP. Cosigned by Rosleyn Juarez MD at 01/10/2025 6:44 PM EDT Associated attestation - Roselyn Juarez MD - 01/10/2025 6:44 PM EDT I have reviewed the advanced practitioner's documentation on the date of service referenced in note, and I agree with, and take responsibility for the plan of care. 64 yo F with history of Hep C Cirrhosis (Child Caldera B7) diagnosed with HCC via MRI and elevated AFP(initial AFP 678.6 ng/ml on 10/11/24, most recent AFP 10,274). She has not been able to start treatment due to C.Diff infection. Now with painful lytic lesions in the R 6th rib and scapula suspiciousfor metastatic disease. PT also has a palpable Left scalp lesion. -Recommend CT head to rule out scalp/skull metastasis -IR Biopsy of one of the Bone lesions -Palliative RT can be initiated once biopsy is performed. -Med Oncology follow up afterwards to discuss potential systemic options -C. Diff treatment per ID and GI. I spent a total of 30 minutes coordinating, documenting, and providing care for this patient excluding time spent in the performance of separately billed services or time spent by another provider/QHP. * Tori Edwards, OTR/L - 01/07/2025 1:40 PM EDT OOB GENERAL EVALUATION - Occupational Therapy [facility] [place]-[address] [address] Name: Neha Marks Location: [facility] [place] G303/A Date: 01/07/2025 Time: 1339 Neha Marks is a 64 year old female. Patient Status: Inpatient Insurance: Payor: MEDICARE Plan: MEDICARE A AND B Product Type: *No Product type* Patient Seen: at bedside, nursing cleared patient for therapy Patient Identified By: Name, ID Band and Date Diagnosis: Cirrhosis of liver; Acute hypoxic respiratory failure (01/07/251339) Status of treatment: OOB evaluation completed (01/07/251339) Orders: OT evaluation and treatment (01/07/251339) Precautions: Alarms;Falls;Safety;Isolation;Oxygen (01/07/251339) Total Treatment Time: 23 (01/07/251339) Past Medical History: Past Medical History: Diagnosis Date 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-repeat 3 years Chronic hepatitis C (HCC) Generalized anxiety disorder 07/03/2009 Menopause 09/11/2009 Age 46 OTHER 11/15/09 Genotype 1a Pneumonia due to organism as a child Past Surgical History: Past Surgical History: Procedure Laterality Date COLONOSCOPY W/ LESION REMOVAL, SNARE 05/20/2011 adentomatous tissue--repeat 3 years COLONOSCOPY, DIAGNOSTIC (RECTUM) 05/06/2019 hyperplastic polyps, repeat 5 yrs/COLONOSCOPY FLEXIBLE PROXIMAL DIAGNOSTIC performed by Leandro Torres MD at [facility]COPY [facility] EGD, FLEXIBLE, DIAGNOSTIC 05/06/2019 normal bx/ESOPHAGOGASTRODUODENOSCOPY (EGD), FLEXIBLE, TRANSORAL, DIAGNOSTIC performed by Leandro Torres MD at [facility]COPY [facility] EGD, FLEXIBLE, DIAGNOSTIC 06/20/2022 Portal hypertensive gastropathy, eso varices / ESOPHAGOGASTRODUODENOSCOPY (EGD), FLEXIBLE, TRANSORAL, DIAGNOSTIC performed by Leandro Torres MD at [facility]COPY [facility] LASIK SURGERY THUMB FX/DISLOC (MELÉNDEZ), REPAIR 2000 rt Social History/Disposition Lives with: Spouse (and son) (01/07/251339) Assistance available: Yes (limited) (01/07/251339) Dwelling type: Multi-story home (01/07/251339) Entry steps: 1 (01/07/251339) Inside steps: 10 - 15 (01/07/251339) Bedroom location: 2nd floor (has been sleeping in recliner on first floor) (01/07/251339) Bath location: 2nd floor full bath;1st floor powder room (01/07/251339) Prior Level of Function Reported by: Patient;Chart review (01/07/251339) Ambulation: Ambulatory without device (01/07/25 134) Grooming: Independent (01/07/25 134) Bathing: Independent (01/07/251339) Dressing: Independent (01/07/251339) Feeding: Independent (01/07/251339) Toileting: Independent (01/07/251339) Durable Medical Equipment at home: No device (01/07/251339) Subjective: Pt agreeable to OT evaluation. Pain: Patient has complaints of pain. Pain located L shoulder. Observations Consciousness: Alert (01/07/251339) Psychosocial: Patient can communicate basic needs;Patient can converse in a social setting (01/07/251339) Sitting posture: Forward head;Rounded shoulders (01/07/251339) Standing posture: Forward head;Rounded shoulders (01/07/251339) Safety awareness: The Patient verbalizes insight of current deficits. (01/07/251339) Other Findings Endurance: Fair (01/07/251339) Current Functional Status: Self Care Grooming: Supervision (Please comment) (to wash hands at sink) (01/07/25 134) Toileting: Minimal Assistance (to complete posterior hygiene and clothing management) (01/07/251339) Dressing Lower Body: Moderate Assistance (to doff/genesis socks) (01/07/251339) Functional Ambulation Assistive Device: Rolling walker (01/07/251339) Distance in feet:: 15 (+ 15) (01/07/251339) Level of Assistance: Contact Guard (01/07/251339) Bed Mobility Supine-Sit: Minimal Assistance (01/07/25 134) Sit-Supine: Minimal Assistance (01/07/25 134) OT Transfers Sit-Stand: Minimal Assistance (01/07/25 134) Stand-Sit: Minimal Assistance (01/07/251339) Toilet: Minimal Assistance (01/07/251339) Balance Sit (Static): Fair (01/07/251339) Sit (Dynamic): Fair (01/07/251339) Stand (Static): Fair (-) (01/07/251339) Stand (Dynamic): Fair (-) (01/07/251339) Alarm Status Patient positioned in: Bed (01/07/251339) With: Bed alarm intact and functioning and call [facility] in reach (01/07/251339) Patient and Family Goals: to get well Patient Education Education Topic: Role of OT;Plan of care goals (01/07/251339) Review of Precautions: Safety;Fall (01/07/251339) Method of Education: Verbalized to patient;Verbalized to family/caregiver (01/07/251339) Education Provided to: Patient;Family (01/07/251339) Response to Education: Receptive and agreeable to education (01/07/251339) Barriers to learning: Medical status (01/07/251339) Preferred learning method: Combination (01/07/251339) Treatment Provided: Self Long-Term Management Trainin minutes Therapeutic Activity: 12 minutes: bed mobility training, functional transfer training, functional mobility training Assessment: Pt is a 64 yr old female, admitted to the hospital on 01/06 for acute hypoxic respiratory failure; cirrhosis of liver. Pt lives spouse and son, and completed ADL tasks and functional mobility with independence. Pt seen for OT OOB evaluation on this date. Pt completed bed mobility of supine to sit with min A for trunk. Pt completed LB dressing with mod A (pt able to doff socks, howeverrequired assistance to genesis socks). Pt completed sit to stand transfer from bed with min A, and functional mobility from bed to commode in bathroom of 15 feet using rolling walker with contact guard for safety. Pt completed toilet task with min A for clothing management, and sit to stand transfer from commode with min A. Pt then completed grooming task with supervision, and functional mobility from bathroom to bed of 15 feet using rolling walker with contact guard. Pt returned to supine in bed with min A for LEs. Pt with needs met. Pt presents with deficits in strength, balance, endurance, functional transfers, functional mobility, and ADL task completion. Pt would benefit from continued OT to work on strength and endurance in order to maximize independence with self care ADL tasks. Please consider post-acute care services which may include home health, senior care, outpatient therapy or inpatient rehabilitation. The level of care will be determined in collaboration with patient, family/caregiver and care team members. Deficits Requiring O.T. Treatment: Deficits requiring O.T. treatment needs: ADL/self-care;Balance;Endurance;Functional mobility;Safety;Upper extremity strength;Weakness (01/07/251339) Goals: ADLs Demonstrate grooming tasks with independence Demonstrate UB dressing task with independence Demonstrate LB dressing task with independence Demonstrate UB bathing task with independence Demonstrate LB bathing task with independence Demonstrate toilet task with independence Bed Mobility Demonstrate rolling L and R with modified independence Demonstrate supine to sit with modified independence Demonstrate sit to supine with modified independence Functional Transfers Demonstrate sit to stand transfer with modified independence Demonstrate bed to chair transfer with modified independence Demonstrate transfers onto/off of commode with modified independence Functional Mobility Demonstrate functional mobility for ADL task completion with modified independence using least restrictive device Balance Improve static/dynamic seated balance for ADL task completion to a grading of good Improve static/dynamic standing balance for ADL task completion to a grading of fair + Strength Improve bilateral UE strength by 1/2 grade Goal Time Frame: 10 visits Treatment Plan: Safety, Bed mobility training, Functional Ambulation, Transfer training, Upper extremity strengthening, Balance activities, ADL training, and Endurance Anticipated Frequency (on eval): 1 to 3 times per week (01/07/251339) AM-PAC Help From Another Person Eating Meals: A little (01/07/251339) Help From Another Person Taking Care of Personal Grooming: A little (01/07/251339) Help From Another Person To Put On/Take Off Upper Body Clothing: A little (01/07/251339) Help From Another Person To Put On/Take Off Lower Body Clothing: A lot (01/07/251339) Help From Another Person Toileting: A little (01/07/251339) Help From Another Person Bathing: A little (01/07/251339) OT AM-PAC Score: 17 (01/07/251339) OT AM-PAC t-Scale Score: 37.26 (01/07/251339) HLM (Highest Level of Mobility) Goal: Level 6 walk 10 steps or more (01/07/25 0900) A portion of this AM-PAC assessment not scored based on functional assessment; rather clinical decision making utilized based on current findings and/or prior level of function. Please refer to future AM-PAC calculations of functional ability as they become available. * Ofelia Perez DPT - 01/07/2025 1:40 PM EDT Physical Therapy - General Evaluation-Out of Bed [address] [address] Name: Neha Marks Location: [facility] [place] G303/A Date: 01/07/2025 Time: 1:40 PM Neha Marks is a/an 64 year old female. Patient Status: Inpatient Insurance: Payor: MEDICARE Plan: MEDICARE A AND B Product Type: *No Product type* Patient Seen: at bedside, nursing cleared patient for therapy Patient Identified By: Name, ID Band and Date Diagnosis: acute hypoxic respiratory failure (01/07/25 1340) Status of treatment: OOB evaluation completed (01/07/25 1340) Orders: PT evaluation and treatment;OOB (01/07/25 1340) Precautions: Alarms;Falls;Isolation;Oxygen;Safety (01/07/25 1340) Total Treatment Time--free text: 23 (01/07/25 1340) Subjective: Pt encountered supine in bed and agreeable to therapy. Past Medical History: Past Medical History: Diagnosis Date 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-repeat 3 years Chronic hepatitis C (HCC) Generalized anxiety disorder 07/03/2009 Menopause 09/11/2009 Age 46 OTHER 11/15/09 Genotype 1a Pneumonia due to organism as a child Past Surgical History: Past Surgical History: Procedure Laterality Date COLONOSCOPY W/ LESION REMOVAL, SNARE 05/20/2011 adentomatous tissue--repeat 3 years COLONOSCOPY, DIAGNOSTIC (RECTUM) 05/06/2019 hyperplastic polyps, repeat 5 yrs/COLONOSCOPY FLEXIBLE PROXIMAL DIAGNOSTIC performed by Leandro Torres MD at [facility]COPY [facility] EGD, FLEXIBLE, DIAGNOSTIC 05/06/2019 normal bx/ESOPHAGOGASTRODUODENOSCOPY (EGD), FLEXIBLE, TRANSORAL, DIAGNOSTIC performed by Leandro Torres MD at [facility]COPY [facility] EGD, FLEXIBLE, DIAGNOSTIC 06/20/2022 Portal hypertensive gastropathy, eso varices / ESOPHAGOGASTRODUODENOSCOPY (EGD), FLEXIBLE, TRANSORAL, DIAGNOSTIC performed by Leandro Torres MD at [facility]COPY [facility] LASIK SURGERY THUMB FX/DISLOC (MELÉNDEZ), REPAIR 2000 rt Social History/Disposition Lives with: Spouse (and son) (01/07/25 134) Assistance available: Yes (limited) (01/07/25 134) Dwelling type: Multi-story home (01/07/251339) Entry steps: 1 (01/07/251339) Inside steps: 10 - 15 (01/07/251339) Bedroom location: 2nd floor (has been sleeping in recliner on first floor) (01/07/251339) Bath location: 2nd floor full bath;1st floor powder room (01/07/251339) Prior Level of Function Reported by: Patient;Family (01/07/25 134) Ambulation: Ambulatory without device (01/07/251339) Observations Consciousness: Alert (01/07/251339) Orientation: Oriented times 4 (01/07/251339) Psychosocial: Patient can communicate basic needs;Patient can converse in a social setting (01/07/25 134) Sitting Posture: Forward head;Rounded shoulders (01/07/25 134) Standing Posture: Forward head;Rounded shoulders (01/07/25 134) Pain: No complaints of pain P.T. Bed Mobility Supine-Sit: Minimal Assistance (01/07/25 134) Sit-Supine: Minimal Assistance (01/07/25 134) Transfers Sit-Stand: Minimal Assistance (01/07/25 134) Stand-Sit: Minimal Assistance (01/07/25 134) Ambulation Assist: Contact Guard (01/07/251339) Distance Ambulated (feet): 15 (x2) (01/07/251339) Assistive Device: Rolling walker (01/07/25 134) Noted gait deviations: slow gait speed (01/07/25 134) Ambulatory safety: Patient verbalizes insight of current deficits (01/07/25 134) Balance Sit (Static): Fair (01/07/25 134) Sit (Dynamic): (fair-) (01/07/251339) Stand (Static): (fair-) (01/07/251339) Stand (Dynamic): (fair-) (01/07/251339) Patient and or Family Goal(s): to get well and to return home Patient Education Review of Precautions: Safety;Fall (01/07/25 134) Review of Exercises: Verbal Exercises Provided (01/06/25 1512) Safety Awareness: Patient verbalizes insight of current deficits;Patient can communicate basic needs;Needs cueing supervision (01/07/25 134) Preferred learning method: Combination (01/07/251339) Barriers to learning: Medical Status (01/07/251339) Method of Education: Verbalized to patient (01/07/251339) Topic of Education: Safety with mobility and Goals/plan of care Treatment Provided: Therapeutic Activities 11 minutes: bed mobility training transfer training toilet transfer training Gait Training 12 minutes: gait training with rolling walker Alarm Status Patient positioned in: Bed (01/07/251339) With: Bed alarm intact and functioning and call [facility] in reach (01/07/251339) Treatment Status: Treatment at bedside (01/07/251339) Assessment: Pt presents to [facility] [place] with acute hypoxic respiratory. Today pt required minimal assistancefor supine to sitting edge of bed. Once edge of bed pt able to sit with supervision to contact guard for ~5 minutes while working on core strength and posture. Pt performed sit to stand with minimal assistance from bed and toilet. Pt ambulated 15'x2 using a rolling walker and contact guard. Pt demonstrated slow gait speed and mild unsteadiness. Pt returned from sit to supine with minimal assistance. Increased time to allow for slowed mobility and multiple bouts of mobility. Pt finished session supine in bed with call [facility] in reach, alarm on, and all needs met. Pt would benefit from skilled PTto improve stated deficits. Please consider post-acute care services which may include home health,senior care, outpatient therapy or inpatient rehabilitation. The level of care will be determined in collaboration with patient, family/caregiver and care team members. Goals: Demonstrate Bed Mobility with: Sit to supine: modified independent Supine to sit: modified independent Demonstrate transfers with: Sit to stand: modified independent Stand to sit: modified independent Bed to chair: modified independent with least restrictive device Chair to bed: modified independent with least restrictive device Demonstrate ambulation: distance: 250 feet with assistive device: least restrictive device and level of assistance: modified independent Demonstrate Stair climbing (when appropriate): number of stairs: 10-15 with level of assistance: modified independent Increase Strength: to 5/5 BLE Increase Balance: fair+ sitting / fair+ standing Increase safety: with all functional mobility Time Frame: 10 visits Treatment Plan: Bed mobility training, Transfer training, Gait training, Elevation training, Strengthening exercises, and Balance activities Deficits requiring P.T. treatment needs: Safety;Balance;Mobility;Weakness;Endurance;Lower extremitystrength (01/07/25 1340) Equipment needs: Rolling walker (01/07/25 134) Anticipated Frequency (on eval): 1 to 3 times per week (01/07/25 1340) AM-PAC Score With Stairs : 17 (01/07/25 1340) A portion of this AM-PAC assessment not scored based on functional assessment; rather clinical decision making utilized based on current findings and/or prior level of function. Please refer to future AM-PAC calculations of functional ability as they become available. Ofelia Perez, PT, DPT, NCS * Shyann Culp, PT - 01/06/2025 3:18 PM EDT Physical Therapy - General Bedrest Evaluation [address] [address] Name: Neha Marks Location: Date: 01/06/2025 Time: 3:12 PM Neha Marks is a/an 64 year old female. Patient Status: Inpatient Insurance: Payor: MEDICARE Plan: MEDICARE A AND B Product Type: *No Product type* Patient Seen: at bedside, nursing cleared patient for therapy Patient Identified By: Name, ID Band and Date Diagnosis: acute hypoxic respiratory failure (01/06/251511) Status of treatment: Bedrest evaluation completed (01/06/251511) Orders: PT evaluation and treatment;OOB (01/06/251511) Precautions: Falls;Safety;Oxygen;Isolation (01/06/251511) Total Treatment Time--free text: 10 (01/06/251511) Subjective: Patient supine on stretcher upon therapist entering room. Patient agreeable to PT evaluation. Past Medical History: Past Medical History: Diagnosis Date 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-repeat 3 years Chronic hepatitis C (HCC) Generalized anxiety disorder 07/03/2009 Menopause 09/11/2009 Age 46 OTHER 11/15/09 Genotype 1a Pneumonia due to organism as a child Past Surgical History: Past Surgical History: Procedure Laterality Date COLONOSCOPY W/ LESION REMOVAL, SNARE 05/20/2011 adentomatous tissue--repeat 3 years COLONOSCOPY, DIAGNOSTIC (RECTUM) 05/06/2019 hyperplastic polyps, repeat 5 yrs/COLONOSCOPY FLEXIBLE PROXIMAL DIAGNOSTIC performed by Leandro Torres MD at [facility] EGD, FLEXIBLE, DIAGNOSTIC 05/06/2019 normal bx/ESOPHAGOGASTRODUODENOSCOPY (EGD), FLEXIBLE, TRANSORAL, DIAGNOSTIC performed by Leandro Torres MD at [facility] EGD, FLEXIBLE, DIAGNOSTIC 06/20/2022 Portal hypertensive gastropathy, eso varices / ESOPHAGOGASTRODUODENOSCOPY (EGD), FLEXIBLE, TRANSORAL, DIAGNOSTIC performed by Leandro Torres MD at [facility] LASIK SURGERY THUMB FX/DISLOC (MELÉNDEZ), REPAIR 2000 rt Social History/Disposition Lives with: Spouse (01/06/251456) Assistance available: Yes (but limited as spouse reported that he had a stroke) (01/06/251456) Dwelling type: Multi-story home (01/06/251456) Entry steps: 1 (01/06/251456) Inside steps: 10 - 15 (01/06/251456) Bedroom location: 2nd floor (sleeping on recliner on the 1st floor) (01/06/251456) Bath location: 2nd floor full bath;1st floor powder room (01/06/251456) Prior Level of Function Reported by: Patient;Family (01/06/251511) Ambulation: Ambulatory without device (01/06/251511) Observations Consciousness: Alert (01/06/251511) Orientation: Oriented times 4 (01/06/251511) Psychosocial: Patient can converse in a social setting (01/06/251511) Other Findings: Yes (01/06/251511) Findings: Light touch sensation (01/06/251511) Light Touch Sensation Results: Intact;LLE;RLE (01/06/251511) Pain: Patient has complaints of pain. Pain located right ribs, abdomen, chest, R UE. 04/28 Nurse aware. Range of Motion Range of Motion: WFL (bilateral LE) (01/06/251511) Strength Assessment Strength Assessment: (bilateral LE 4/5) (01/06/251511) Patient and or Family Goal(s): to get well Patient Education Review of Precautions: Fall;Safety (role of PT) (01/06/251511) Safety Awareness: Patient verbalizes insight of current deficits (01/06/251511) Preferred learning method: Combination (01/06/251511) Barriers to learning: Medical Status (pain) (01/06/251511) Method of Education: Verbalized to patient (01/06/251511) Topic of Education: Goals/plan of care, Fall prevention, and role of PT Treatment Provided: Evaluation Low Complexity 10 minutes - [id number]: Patient was alert during treatment session. Low complexity evaluation performed with indication of no personal factors or comorbidities that impact plan of care. Patient presents with limitations in strength, which will impact plan of care. These limitations will be addressed by the goals set for this patient. Alarm Status Patient positioned in: Bed (stretcher with bilateral rails up) (01/06/251511) With: Call krause in reach (01/06/251511) Treatment Status: Treatment at bedside (01/06/251511) Assessment: Patient is a 64 y/o female with dx acute hypoxic respiratory failure with pathologic right 6th rib fracture. Prior to admission, patient lives with he son in a multi story home with 1 step to enter first floor set up, and was independent with mobility without an assistive device. Patient currently presents with decreased LE strength and decreased activity tolerance. Patient declined functional mobility assessment due to 04/28 pain. Nurse reports patient recently had IV morphine and is not due for pain medication. Patient would benefit from continued PT to maximize LE strength and to complete mobility assessment as able. Goals: Increase Strength of: Bilateral LE by 1/2 MMT grade above evaluation Assess as Able: Bed Mobility, Transfers, Ambulation, Balance Time Frame: 10 visits Treatment Plan: Strengthening exercises Deficits requiring P.T. treatment needs: Lower extremity strength (01/06/25 151) Anticipated Frequency (on eval): 1 to 3 times per week (01/06/25 151) AM-PAC assessment not scored at this time due to bedrest evaluation. Please refer to future AM-PAC calculations of functional mobility as they become available. * Zuri Story, OT - 01/06/2025 2:57 PM EDTAssociated Order(s): ADULT OCCUPATIONAL THERAPY CONSULT IP GENERAL EVALUATION - Occupational Therapy Bedrest evaluation [address] [address] Name: Neha Marks Location: Date: 01/06/2025 Time: 2:57 PM Neha Marks is a 64 year old female. Patient Status: Inpatient Insurance: Payor: MEDICARE Plan: MEDICARE A AND B Product Type: *No Product type* Patient Seen: at bedside, nursing cleared patient for therapy Patient Identified By: Name, ID Band and Date Diagnosis: acute hypoxic respiratory failure (01/06/251456) Status of treatment: Bedrest evaluation completed (01/06/251456) Orders: OT evaluation and treatment (01/06/25 909) Precautions: Falls;Oxygen;Safety;Isolation (01/06/25 145) Total Treatment Time: 11 (01/06/25 145) Past Medical History: Past Medical History: Diagnosis Date 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-repeat 3 years Chronic hepatitis C (HCC) Generalized anxiety disorder 07/03/2009 Menopause 09/11/2009 Age 46 OTHER 11/15/09 Genotype 1a Pneumonia due to organism as a child Past Surgical History: Past Surgical History: Procedure Laterality Date COLONOSCOPY W/ LESION REMOVAL, SNARE 05/20/2011 adentomatous tissue--repeat 3 years COLONOSCOPY, DIAGNOSTIC (RECTUM) 05/06/2019 hyperplastic polyps, repeat 5 yrs/COLONOSCOPY FLEXIBLE PROXIMAL DIAGNOSTIC performed by Leandro Torres MD at [facility] EGD, FLEXIBLE, DIAGNOSTIC 05/06/2019 normal bx/ESOPHAGOGASTRODUODENOSCOPY (EGD), FLEXIBLE, TRANSORAL, DIAGNOSTIC performed by Leandro Torres MD at [facility] EGD, FLEXIBLE, DIAGNOSTIC 06/20/2022 Portal hypertensive gastropathy, eso varices / ESOPHAGOGASTRODUODENOSCOPY (EGD), FLEXIBLE, TRANSORAL, DIAGNOSTIC performed by Leandro Torres MD at [facility] LASIK SURGERY THUMB FX/DISLOC (MELÉNDEZ), REPAIR 2000 rt Social History/Disposition Lives with: Spouse (and son) (01/06/251456) Assistance available: Yes (but limited as spouse reported that he had a stroke) (01/06/251456) Dwelling type: Multi-story home (01/06/251456) Entry steps: 1 (01/06/251456) Inside steps: 10 - 15 (01/06/251456) Bedroom location: 2nd floor (sleeping on recliner on the 1st floor) (01/06/251456) Bath location: 2nd floor full bath;1st floor powder room (01/06/251456) Prior Level of Function Reported by: Patient (01/06/251456) Ambulation: Ambulatory without device (01/06/251456) Grooming: Independent (01/06/251456) Bathing: Independent (01/06/251456) Dressing: Independent (01/06/251456) Feeding: Independent (01/06/251456) Toileting: Independent (01/06/251456) Medication Management: Independent (01/06/251456) Durable Medical Equipment at home: No device (01/06/251456) Subjective: patient was agreeable to bedrest evaluation Pain: Patient has complaints of pain. Pain located- R shoulder, back, and R flank, 7/10 was reported to nurse when she was given pain medication (per family) Observations Consciousness: Alert (01/06/251456) Orientation: Person (place and time NT) (01/06/251456) Psychosocial: Patient can communicate basic needs;Patient can converse in a social setting (01/06/251456) Other Findings Endurance: Poor (secondary to pain) (01/06/251456) Light touch sensation: LUE;RUE;Intact (01/06/251456) Current Functional Status: Bilateral Upper Extremity Range of Motion: WFL, except (01/06/251456) RUE: Shoulder (30 flexion) (01/06/251456) Strength Assessment: Deficits noted (01/06/251456) LUE: Elbow;Wrist;Grasp;4/5 (01/06/251456) RUE: Elbow;Wrist;Grasp;4/5 (01/06/251456) Alarm Status Patient positioned in: (stretcher) (01/06/251456) With: Call krause in reach (rails up) (01/06/251456) Patient and Family Goals: unable to obtain Patient Education Education Topic: Role of OT (01/06/251456) Review of Precautions: Fall;Safety (01/06/251456) Method of Education: Verbalized to patient (01/06/251456) Education Provided to: Patient (01/06/251456) Response to Education: Receptive and agreeable to education (01/06/251456) Barriers to learning: Medical status (pain) (01/06/251456) Preferred learning method: Combination (01/06/251456) Treatment Provided: Evaluation Moderate Complexity 11 minutes - [id number]: Patient was cooperative during treatment session. Moderate complexity evaluation performed and 3-5 activity limitations were identified, including decreased strength, decreased endurance, and decreased range of motion. Minimal or moderate modification of the functional task was necessary to complete the evaluation. Deficits Requiring O.T. Treatment: Deficits requiring O.T. treatment needs: Upper extremity strength;Upper extremity range of motion (01/06/251456) Assessment: Patient is a 64 year old female admitted to [facility] on 01/06/25 with Dx of acute hypoxic respiratory failure. Patient lives at home with her spouse and son. Patient was independent with her self-care prior to admission and did not use a device to ambulate. Patient demonstrates deficits in bilateral UE strength, R UE shoulder flexion, and activity tolerance. Patient declined OOB at this time secondary to pain. Will complete OOB and self-care evaluations as able and appropriate. Goals: Increase R UE shoulder flexion to 90 Increase B UE strength to 4+/5 Completion of OOB and self-care evaluations by OTR/L as able and appropriate Goal Time Frame: 10 visits Treatment Plan: Energy Conservation, ROM exercises, Upper extremity strengthening, Endurance, and Completion of OOB and self-care evaluations by OTR/L as able and appropriate Anticipated Frequency (on eval): 1 to 3 times per week (01/06/25 6317) AM-PAC assessment not scored at this time due to self-care not being assessed. Please refer to future AM-PAC calculations of functional mobility as they become available. * Jeffry Xavier, PT - 01/06/2025 11:31 AM EDTAssociated Order(s): ADULT PHYSICAL THERAPY CONSULT IP [facility] [address] [phone] Name: Neha Marks Location: Date: 01/06/2025 Time: 11:31 AM Physical Therapy consult received. Pt just OOB with nursing and returned to bed right as I entered room. PT will defer evaluation at this time. Therapy will continue to follow patient for services asable and appropriate. * Emigdio Hogan DO - 01/06/2025 8:43 AM EDTAssociated Order(s): PALLIATIVE MEDICINE CONSULT IP CONSULT NOTE - Palliative Medicine [address] [address] Name: Neha Marks Location: Date: 01/06/2025 Time: 8:43 AM REQUESTING SERVICE: General Internal Medicine REASON FOR CONSULT: We have been asked to see this patient for goals of care. HPI: 63-year-old female Ms. Solomon with past medical history of Generalized anxiety disorder cirrhosis of liver Mood disorder Portal hypertension Thrombocytopenia Major depressive disorder HTN History of hepatocellular cancer, hepatitis-C virus infection C difficile infection Comes to the [facility] ED for evaluation of fever and chest pain. Neha comes in for her evaluation of right-sided chest pain along with ongoing right shoulder painwhich has been making her movements query painful. She reports that chest pain started a few days ago, nonradiating, on the right side, 10/10-improvedwith fentanyl/morphine prior to and on arrival. She reports to be compliant to her medication and recently started on Coreg for her high blood pressure which she had not been able to take at home prior to her arrival. She does not have any subjective fevers, afebrile on arrival. She is also compliant to her C diff medications and reports that the symptoms are getting better. She however feels extremely weak and short of breaths however not dyspneic on arrival. She reports that she had 6 bowel movements yesterday. Also notes that she has had persistently frequent loose bowel movements that are foul-smelling. Patient denies history of palpitations, headache, dizziness, abdominal pain, nausea, vomiting, diarrhea, constipation, recent surgery, recent travel, recent change in medications, recent new drug use, skin changes. Previous have Oncology evaluation November 13: proceed with radioembolization with yttrium-90 microsphere and she is referred to Medical Oncology for systemic chemotherapy. ID evaluation 01/04 : diarrhea in July 2024 and was diagnosed with C Diff in November 2024 and was started on 10 days of oral vancomycin and when her symptoms did not resolve she was treated with oral vancomycin taper which she took for 5 weeks without symptom improvement and so she was switched to fidaxomicin which she only started yesterday but has already seen improvement. She was encouraged to continue to fidaxomicin until 01/13/25 and to schedule her radiology appointment [facility] as her symptoms are improving. Avoid antibiotics unless necessary. GI/hepatology evaluation 10/2024: suspect advanced stage (C) HCC. EGD 2021 : Grade I esophageal varices. Portal hypertensive gastropathy. Normal examined duodenum. Patient was discussed at HCC tumor board on 11/03. IR recommends radiation segmentectomy (y90) with referral to medical oncology for combination systemic therapy. Patient is admitted under the impression of rib fracture in the setting of cirrhosis and history ofliver cancer-rule out metastasis/malignancy, and confirms to be full code. This note was copy/pasted from [facility], dated on 01/06/25. PALLIATIVE ENCOUNTER FROM TODAY'S VISIT: 01/06/2025 Introduced patient to Palliative Medicine in the setting of current hospital admission for workup of gallbladder disease in the setting of liver cancer with possible pathological metastasis. Patient shares that she was scheduled for radiation therapy however due to current C diff infection therapy and treatment has been delayed. Patient lives with her son in [place]. She has a and 1 daughter. She is currently retired. She plans on continuing chemotherapy and radiation until she has to. Overall, she is worried about the cancer and anxious. Currently, she reports right upper quadrant pain responsive to morphine IV. She also reports episodes of nausea that are relieved with Zofran. At home, she also takes gabapentin 100 mg three times daily for anxiety, depression. REVIEW OF SYMPTOMS: [Severity scale of each symptom should be based on how the patient feels now.] 1. Pain Assessment: None Current Analgesic Regimen: Yes: Other morphine 3 mg 2. Shortness of Breath Assessment: None Current Regimen: None 3. Nausea Assessment: Yes: Severity: Current Regimen: Yes: Other Zofran 4. Tiredness/Fatigue Assessment: None Current Regimen: None 5. Drowsiness Assessment: None 6. Depression Assessment: 1. During the past month, has patient been bothered by feeling down, depressed, or hopeless? No 2. During the past month, has patient been bothered by having little interest or pleasure in doing things? No Current Regimen: none 7. Anxiety Assessment: Yes: Severity: Current Regimen: Yes: Other Gabapentin 100 mg three times daily 8. Anorexia/Lack of Appetite: None Current Regimen: None 9. Delirium/Agitation: No Current Regimen: none 10. Well-being Assessment: None 11. Constipation Assessment: None Current Regimen: None 12. Insomnia Assessment: None Current Regimen: None 13. Oropharyngeal Secretions or Cough: No Current Regimen: none 14. Constitutional: (-) fever chills sweats or weight loss Cardiovascular: (-) negative: no chest pain, dyspnea, syncope, or palpitations Pulmonary: (-) negative: no cough, wheezing, or shortness of breath Abdominal/GI: (+) nausea and (+) abdominal pain Skin: (-) negative: no rash or new or changing moles Psychiatry: (-) negative: no depression or anxiety Rest of the review of systems negative. FUNCTIONALITY: 100% - Ambulation: Full, Normal activity and work / No evidence of disease. Self-care: Full. Intake: Normal. Conscious level: Full. ADVANCED DIRECTIVES AND [place] ORDERS FOR LIFE-SUSTAINING TREATMENT: Patient has not completed 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-repeat 3 years Chronic hepatitis C (HCC) Generalized anxiety disorder 07/03/2009 Menopause 09/11/2009 Age 46 OTHER 11/15/09 Genotype 1a Pneumonia due to organism as a child PAST SURGICAL HISTORY: Past Surgical History: Procedure Laterality Date COLONOSCOPY W/ LESION REMOVAL, SNARE 05/20/2011 adentomatous tissue--repeat 3 years COLONOSCOPY, DIAGNOSTIC (RECTUM) 05/06/2019 hyperplastic polyps, repeat 5 yrs/COLONOSCOPY FLEXIBLE PROXIMAL DIAGNOSTIC performed by Leandro Torres MD at [facility] EGD, FLEXIBLE, DIAGNOSTIC 05/06/2019 normal bx/ESOPHAGOGASTRODUODENOSCOPY (EGD), FLEXIBLE, TRANSORAL, DIAGNOSTIC performed by Leandro Torres MD at [facility] EGD, FLEXIBLE, DIAGNOSTIC 06/20/2022 Portal hypertensive gastropathy, eso varices / ESOPHAGOGASTRODUODENOSCOPY (EGD), FLEXIBLE, TRANSORAL, DIAGNOSTIC performed by Leandro Torres MD at [facility] LASIK SURGERY THUMB FX/DISLOC (MELÉNDEZ), REPAIR 2000 rt FAMILY HISTORY: Family History Problem Relation Name Age of Onset No Past Hx Mother Gastro-intestinal disorder Father of cirrhosis in fifties, etoh Lung Disorder Sister copd Family History: noncontributory SOCIAL HISTORY: Social History Tobacco Use Smoking status: Every Day Current packs/day: 0.50 Average packs/day: 0.5 packs/day for 20.0 years (10.0 ttl pk-yrs) Types: Cigarettes Passive exposure: Never Smokeless tobacco: Never Tobacco comments: 10 per day Vaping Use Vaping status: Never Used Substance Use Topics Alcohol use: No Drug use: No Family Support: Spouse: Primary and Child: Primary PSYCHOSOCIAL ASSESSMENT: At times, I worry I will be a burden to my family: A little bit Pertinent Social Factors: living with son ALLERGIES: Patient has no known allergies. PHYSICAL EXAMINATION: Most Recent Vital Signs: BP: 154 mmHg/61 mmHg (01/06/25 0600) Pulse: 94 (01/06/25 0600) Resp: 20 (01/06/25 0500) Temp: 36.5 C (01/06/25 0208) Temp Summary: Temp Min: 36.5 °C (97.7 °F) Max: 36.5 °C (97.7 °F) SpO2: 94 % (01/06/25 0600) O2 flow rate: 3 L/MIN (01/06/25 0600) Supplemental O2 Delivery: Nasal Cannula (01/06/25 06) Vital Signs Last 24 Hours: Systolic BP: Most Recent Systolic BP Av.5 mmHg Min: 129 mmHg Max: 178 mmHg Temperature: Most Recent Temperature Av.5 C Min: 36.5 C Max: 36.5 C Pulse: Pulse Av.3 Min: 83 Max: 108 Respirations: Resp Av.3 Min: 20 Max: 21 SpO2: SpO2 Av % Min: 94 % Max: 96 % Constitutional: no acute distress CV: normal rate and rhythm, no murmur, gallops or rub Chest: normal respiratory effort Abdominal: (+) ttp RUQ LABS REVIEWED: yes, reviewed Latest Reference Range & Units 01/06/25 05:59 SODIUM 135 - 146 mmol/L 141 POTASSIUM 3.5 - 5.1 mmol/L 3.4 (L) CHLORIDE 98 - 107 mmol/L 106 CO2 22 - 32 mmol/L 23 BUN 6 - 20 mg/dL 8 CREATININE 0.5 - 1.0 mg/dL 0.5 EGFR >=60 mL/min >90 ANION GAP 7 - 15 mmol/L 12 GLUCOSE 70 - 120 mg/dL 150 (H) CALCIUM 8.4 - 10.2 mg/dL 8.7 Magnesium 1.5 - 2.6 mg/dL 1.9 Phosphorus 2.5 - 4.8 mg/dL 2.9 Protein 6.0 - 8.3 g/dL 6.7 LD <=250 U/L 266 (H) Uric Acid 2.4 - 5.7 mg/dL 2.5 INR 0.8 - 1.2 1.4 (H) Prothrombin Time 11.6 - 15.2 seconds 16.9 (H) CBC Rpt ! WBC 4.00 - 10.80 K/uL 6.40 RBC 3.85 - 5.15 M/uL 3.65 HGB 12.0 - 15.3 g/dL 10.6 (L) HCT 36.0 - 45.2 % 34.3 (L) MCV 81.5 - 97.5 fL 94.0 MCH 27.0 - 34.0 pg 29.0 MCHC 32.0 - 36.0 g/dL 30.9 RDW 11.5 - 15.5 % 16.0 PLT 140 - 400 K/uL 70 (L) MPV 6.6 - 11.1 fL 12.7 (L): Data is abnormally low (H): Data is abnormally high !: Data is abnormal Rpt: View report in Results Review for more information IMAGING REVIEWED: yes, reviewed CT ABD/PELVIS W IV CONTRAST - WO ORAL CONTRAST IMPRESSION: 1. Extensive cirrhotic changes of the liver with 1.3 cm nodular density posterior exophytic right lobe may represent regenerating nodule but is nonspecific. MRI can further evaluate as clinically indicated. 2. Portal venous hypertension changes 3. Moderate abdominal and pelvic ascites 4. Luz hepatic adenopathy with nodes up to 5 cm in diameter. 5. Calcified gallstone with some pericholecystic fat ill distinctness which is nonspecific in the setting of ascites.Some linear calcification within the gallbladder wall is also suspected. If cholecystitis is suspected clinically ultrasound can further evaluate. ASSESSMENT/PLAN: Neha Marks is a/an 64 year old female referred for consultation to Palliative Medicine with the primary diagnosis of: Cancer: Metastatic Liver Cancer with pathologic fracture of 6th rib Secondary Diagnoses are generalized anxiety disorder portal hypertension, mood disorder, major depressive disorder, hypertension C. Difficile Cancer-related pain - May continue Morphine IV pushes of 2-4 mg PRN for pain Nausea - May continue zofran 4 mg IV PRN for nausea Goals of Care - Currently pursuing disease directed therapy, pending HIDA scan results and possible surgical options Palliative Care encounter - Introduced our Palliative Medicine team. Reviewed palliative care involvement for symptom assessment and management related to serious illness or related to disease-directed treatment. We discussedour involvement as support, coordination, advanced care planning discussion, and advance directives discussion. ACP plan - Educated on filling out documentation regarding living will, advance directive forms to aid in future goals of care We appreciate your consult request and the opportunity to assist in the care of your patient. Please do not hesitate to call or page with additional questions or concerns. We will always try to remain available. This patient was discussed with Dr. Atkinson at the time of consult. Cosigned by Leif Atkinson MD at 01/06/2025 4:44 PM EDT Associated attestation - Leif Atkinson MD - 01/06/2025 4:44 PM EDT I saw and evaluated the patient today. I have reviewed the resident/fellow physician note and agree. * Lakisha Root MD - 01/06/2025 8:14 AM EDTAssociated Order(s): ONCOLOGY CONSULT IP Images from the original note were not included. CONSULT - Oncology [facility]-[address] [id number] Name: Neha Marks Location: Date: 01/06/2025 Time: 6:34 AM REQUESTING SERVICE AND PROVIDER: medicine REASON FOR CONSULT: " 64-year-old female with a history of liver cancer, hepatitis-C has pathological rib fracture along with a lung nodule-please evaluate for further recs, thanks CANCER HISTORY: MRI of the liver on 09/27/2024: -cirrhosis [...] ) -alpha-fetoprotein level --> 678 ( 10/11/2024 HPI: Neha Marks is 64 year old female with a past medical history significant for anxiety, cirrhosis, thrombocytopenia, HTN, chronic hep C infection and HCC who presented to the [facility] ED for right chest and shoulder pain. CT abd/pelvis, and chest show moderate ascites, luz hepatic adenopathy, and a right posterior pleural based mass with erosive/destructive changes in the right posterior 6th rib suspicious for neoplastic disease. She was transferred to [facility] for further work up. She was scheduled to have y-90 radioembolization of her HCC however she developed C diff diarrhea which has postponed this treatment. Her diarrhea persisted with vancomycin and she was seen by ID whostarted fidaxomicin 01/03. She was going to follow up with Dr. Plunkett in [facility] after the radioe mbolizatin to discuss systemic treatment. However, her C Diff did not improve and the patient has just been switched to dificid. Patient of Dr Tunde Plunkett initial visit 11/12/24 DIAGNOSIS: Hepatocellular carcinoma (segment 7 mass measuring 8.5 x 5 cm, LR 5 ). Left lobe of the liver smalllesion measuring 1.2 x 1.8 with LR 3. -cirrhosis of liver with evidence of portal hypertension , splenomegaly. -alpha-fetoprotein level --> 678 (10/11/2024). It was normal about 1 and half year before that. As we do not have tissue diagnosis, will not be able to proceed with the NGS checkup. Child Caldera A CURRENT TREATMENT: Awaiting Radioembolization with yttrium-90 microspheres at [facility]. Plan: unable to start Bevacizumab before and after the liver directed treatment but planning to start immunotherapy. Positive hepatitis-C, treated with Harvoni in 2014. [...] ) -alpha-fetoprotein level --> 678 ( 10/11/2024 Previous history of hepatitis-C serology, treated with Harvoni, has underlying cirrhosis of liver, portal hypertension, had periodic imaging studies to screen for the liver cancer, she could not comefor the regular follow-up and imaging study as she was taking care of her and grandson. Now she has liver mass, significant rise in the alpha-fetoprotein level, her case was discussed at [facility], they are preparing her for radioembolization with yttrium-90 microspheres. Subjective + diarrhea, + pain in RUQ and Rt shoulder, decreased appetite due to pain and difficulty sleeping due to right abd/shoulder pain. Reports peripheral neuropathy. PAST SURGICAL HISTORY: Past Surgical History: Procedure Laterality Date COLONOSCOPY W/ LESION REMOVAL, SNARE 05/20/2011 adentomatous tissue--repeat 3 years COLONOSCOPY, DIAGNOSTIC (RECTUM) 05/06/2019 hyperplastic polyps, repeat 5 yrs/COLONOSCOPY FLEXIBLE PROXIMAL DIAGNOSTIC performed by Leandro Torres MD at [facility] EGD, FLEXIBLE, DIAGNOSTIC 05/06/2019 normal bx/ESOPHAGOGASTRODUODENOSCOPY (EGD), FLEXIBLE, TRANSORAL, DIAGNOSTIC performed by Leandro Torres MD at [facility] EGD, FLEXIBLE, DIAGNOSTIC 06/20/2022 Portal hypertensive gastropathy, eso varices / ESOPHAGOGASTRODUODENOSCOPY (EGD), FLEXIBLE, TRANSORAL, DIAGNOSTIC performed by Leandro Torres MD at [facility] LASIK SURGERY THUMB FX/DISLOC (MELÉNDEZ), REPAIR 2000 rt FAMILY HISTORY: Family History Problem Relation Name Age of Onset No Past Hx Mother Gastro-intestinal disorder Father of cirrhosis in fifties, etoh Lung Disorder Sister copd SOCIAL HISTORY: Social History Tobacco Use Smoking status: Every Day Current packs/day: 0.50 Average packs/day: 0.5 packs/day for 20.0 years (10.0 ttl pk-yrs) Types: Cigarettes Passive exposure: Never Smokeless tobacco: Never Tobacco comments: 10 per day Vaping Use Vaping status: Never Used Substance Use Topics Alcohol use: No Drug use: No REVIEW OF SYSTEMS: as above in HPI Patient's past history, medications, and allergies were reviewed. Objective Physical Exam Most Recent Vital Signs: BP: 154 mmHg/61 mmHg (01/06/25 0600) Pulse: 94 (01/06/25 0600) Resp: 20 (01/06/25 0500) Temp: 36.5 C (01/06/25 0208) Temp Summary: Temp Min: 36.5 °C (97.7 °F) Max: 36.5 °C (97.7 °F) SpO2: 94 % (01/06/25 06) O2 flow rate: 3 L/MIN (01/06/25 06) Supplemental O2 Delivery: Nasal Cannula (01/06/25599) ECOG PERFORMANCE STATUS: (3) Capable of limited self-care, confined to bed or chair > 50% of waking hours Constitutional: (+) ill appearing CV: normal rate and rhythm, no murmur, gallops or rub Chest: normal respiratory effort, lungs clear to auscultation and percussion Abdomen: distended abdomen-taut- with + bowel sounds, minimal pain with palpation Extremities: GOLDSMITH with equal strength bilaterally Skin: warm, dry, intact: Neuro: alert, oriented to person, place, and time, normal mental status exam Psych: normal mood and affect, nonsuicidal, judgement normal STUDIES: Encounter Orders Labs and other studes reviewed with pertinent findings noted below: LABS: I have personally reviewed the following labs CBC/DIFF CHEMISTRY Lab results within last 7 days (see chart for full results) Units 01/05/252025 BUN mg/dL 8 CREATININE mg/dL 0.7 EGFR mL/min >90 SODIUM mmol/L 137 POTASSIUM mmol/L 3.4* CHLORIDE mmol/L 99 CALCIUM mg/dL 9.3 CO2 mmol/L 27 ANION GAP mmol/L 11 GLUCOSE mg/dL 159* Lab results within last 7 days (see chart for full results) Units 01/05/252025 WBC K/uL 6.05 HGB g/dL 11.4* PLT K/uL 66* Neutrophils % % 77.0* Monocytes % % 11.2* LFTs Lab results within last 7 days (see chart for full results) Units 01/05/252025 Albumin g/dL 4.1 Protein g/dL 7.4 AST U/L 135* ALT U/L 42* Alkaline Phosphatase U/L 620* Bilirubin, Total mg/dL 1.0 RADIOLOGY: 01/06/25: Abd US IMPRESSION 1. Cholelithiasis and borderline increased gallbladder wall thickness. No pericholecystic fluid. Negative sonographic sign. Findings are equivocal for acute cholecystitis and may be related to cirrhosis however consider correlation with HIDA scan if there is persistent concern for acute cholecystitis. 2. Cirrhosis. 2.4 cm hypoechoic mass in the right hepatic lobe consistent with known LI-RADS 5 lesion. 01/05/25: CT Chest: IMPRESSION: 1. Right posterior pleural-based mass with erosive/destructive changes of the right posterior 6th rib highly suspicious for neoplastic disease. 2. Right scapular lesion highly suspicious for bony metastasis. 3. Ground-glass 3 mm nodule left lung anteriorly nonspecific. 4. 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 01/05/25: CT ABD/PELVIS IMPRESSION: 1. Extensive cirrhotic changes of the liver with 1.3 cm nodular density posterior exophytic right lobe may represent regenerating nodule but is nonspecific. MRI can further evaluate as clinically indicated. 2. Portal venous hypertension changes 3. Moderate abdominal and pelvic ascites 4. Luz hepatic adenopathy with nodes up to 5 cm in diameter. 5. Calcified gallstone with some pericholecystic fat ill distinctness which is nonspecific in the setting of ascites.Some linear calcification within the gallbladder wall is also suspected. If cholecystitis is suspected clinically ultrasound can further evaluate. Positive hepatitis-C, treated with Harvoni in 2015. Ultrasound of the abdomen on 04/01/2023: - [...] Hemoglobin and hematocrit -12.3/40, [place] [address]. PATHOLOGY: None located Assessment and Plan ASSESSMENT: Principal Problem: Acute hypoxic respiratory failure (HCC) Active Problems: Generalized anxiety disorder Other cirrhosis of liver (HCC) Mood disorder (HCC) Portal hypertension (HCC) Thrombocytopenia (HCC) Major depressive disorder with single episode HTN, goal below 130/80 Elevated transaminase level Cholelithiasis Resolved Problems: * No resolved hospital problems. * Had a lengthy meeting with patient and her family today. We reviewed all available records togetherincluding radiographic reports and images, pathologic reports, operative reports, procedure notes, and all available notes created by all medical providers involved in this case. I personally reviewed the patient's diagnosis, prognosis, status of cancer, goals of care, treatment options and plan, imaging summary and toxicities of treatment. Also discussed medically reasonable alternatives and their benefits, risks and adverse effects. 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 She seems to have cholecystitis currently, which would preclude her getting any systemic therapy Treatment is palliative. Given her symptoms recommend RECOMMENDATIONS: Consult Radiation Oncology for possible palliative treatment of 6th rib mass and scapula Consult IR for Y-90 to liver tumors after she is discharged Will need follow up appt outpatient with Dr Tunde Plunkett 1 week post discharge. Consider systemic treatment with atezolizumab and bevacizumab or tremelimumab with durvalumab. Based on the HIMALAYA trial, The response rate with tremelimumab and durvalumab is about 20% with 3 yr OS about 31%. Treat infection currently - cholecystitis Continue other supportive care Consider palliative care consult outpatient rest of their care per primary team Pt seen and discussed with Dr. Root. Thanks for involving us with the care of this patient. Please call or page us with any questions. I spent a total of 80 minutes coordinating, documenting, and providing care for this patient excluding time spent in the performance of separately billed services or time spent by another provider/QHP. I have reviewed the advanced practitioner's documentation on the date of service referenced in note, and I agree with, and take responsibility for the plan of care. * Oswaldo Perez MD - 01/06/2025 7:32 AM EDTAssociated Order(s): HEPATOLOGY CONSULT IP CONSULT - Hepatology [facility] [place]-[address] [id number] Name: Neha Marks Location: Date: 01/06/2025 Time: 7:32 AM REQUESTING SERVICE: Medicine REASON FOR CONSULT: 63-year-old female with a history of hepatocellular cancer, admitted for chest pain, abnormal liver function, please evaluate for Hepatology recommendations HPI: Neha Marks is a 64 year old female with Hep C cirrhosis, chronic hep C s/p SVR in 11/2014(with Harvoni 24 weeks), HCC (segment 7 mass 8.5 x 5 cm, LR5 and left lobe lesion 1.2 x 1.8 LR3) discussed in Tumor board recommending Y90 radioembolization and systemic therapy - on hold due to active C diff infection currently on fidaxomicin. Initially presented to the hospital with abdominal pain and chest pain with the associated shortness of breath. No prior concerns of chills nausea or vomiting. Initial workup was notable for elevated liver chemistries (chronic) with a normal T bili. CT chest abdomen and pelvis was notable for new right posterior pleural-based mass with the rest erosive/destructive changes, right scapular lesion, left lung nodule, cirrhotic changes of the liver, portal hepatic adenopathy and abdominopelvic ascites with calcified gallstone and some pericholecystic fat. She was admitted to the medicine service for further evaluation. Evaluated by General Surgery to recommended further evaluation with HIDA scan however deemed her to be an unlikely surgical candidate. Currently patient reports feeling well, denies any active complaints at the time. Reports she has not started her radio embolization yet. Denies any prior history of melena/dark colored stool, jaundice, confusion. Does endorsed that she recently has been feeling bloated. Does not use any oxygen at baseline HISTORY: Past Medical History: Past Medical History: Diagnosis Date 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-repeat 3 years Chronic hepatitis C (HCC) Generalized anxiety disorder 07/03/2009 Menopause 09/11/2009 Age 46 OTHER 11/15/09 Genotype 1a Pneumonia due to organism as a child Past Surgical History: Past Surgical History: Procedure Laterality Date COLONOSCOPY W/ LESION REMOVAL, SNARE 05/20/2011 adentomatous tissue--repeat 3 years COLONOSCOPY, DIAGNOSTIC (RECTUM) 05/06/2019 hyperplastic polyps, repeat 5 yrs/COLONOSCOPY FLEXIBLE PROXIMAL DIAGNOSTIC performed by Leandro Torres MD at [facility] EGD, FLEXIBLE, DIAGNOSTIC 05/06/2019 normal bx/ESOPHAGOGASTRODUODENOSCOPY (EGD), FLEXIBLE, TRANSORAL, DIAGNOSTIC performed by Leandro Torres MD at [facility] EGD, FLEXIBLE, DIAGNOSTIC 06/20/2022 Portal hypertensive gastropathy, eso varices / ESOPHAGOGASTRODUODENOSCOPY (EGD), FLEXIBLE, TRANSORAL, DIAGNOSTIC performed by Leandro Torres MD at [facility] LASIK SURGERY THUMB FX/DISLOC (MELÉNDEZ), REPAIR 2000 rt Social History: Social History Tobacco Use Smoking status: Every Day Current packs/day: 0.50 Average packs/day: 0.5 packs/day for 20.0 years (10.0 ttl pk-yrs) Types: Cigarettes Passive exposure: Never Smokeless tobacco: Never Tobacco comments: 10 per day Vaping Use Vaping status: Never Used Substance Use Topics Alcohol use: No Drug use: No Family History: Family History Problem Relation Name Age of Onset No Past Hx Mother Gastro-intestinal disorder Father of cirrhosis in fifties, etoh Lung Disorder Sister copd Allergies: Patient has no known allergies. ROS: Reviewed as above otherwise negative PHYSICAL EXAMINATION: Most Recent Vital Signs: BP: 154 mmHg/61 mmHg (01/06/25 06) Pulse: 94 (01/06/25 0600) Resp: 20 (01/06/25 0500) Temp: 36.5 C (01/06/25 0208) Temp Summary: Temp Min: 36.5 °C (97.7 °F) Max: 36.5 °C (97.7 °F) SpO2: 94 % (01/06/25599) O2 flow rate: 3 L/MIN (01/06/25599) Supplemental O2 Delivery: Nasal Cannula (01/06/25599) Vital Signs Last 24 Hours: Systolic BP: Most Recent Systolic BP Av.5 mmHg Min: 129 mmHg Max: 178 mmHg Temperature: Most Recent Temperature Av.5 C Min: 36.5 C Max: 36.5 C Pulse: Pulse Av.3 Min: 83 Max: 108 Respirations: Resp Av.3 Min: 20 Max: 21 SpO2: SpO2 Av % Min: 94 % Max: 96 % General: resting comfortably, in no acute distress HEENT: normocephalic, atraumatic Thorax: S1 + S2, no murmurs, CTAB, normal inspiratory effort Abdomen: distended, soft, mildly tender to palpation Extremities: No edema. Neurologic: Awake, Alert, and Oriented, following commands LABS: Labs reviewed. Lab results within last 7 days (see chart for full results) Units 01/06/25 0559 01/05/252025 HGB g/dL 10.6* 11.4* HCT % 34.3* 35.5* WBC K/uL 6.40 6.05 PLT K/uL 70* 66* Lab results within last 7 days (see chart for full results) Units 01/06/25 0559 01/05/252025 Protein g/dL 6.7 7.4 Bilirubin, Total mg/dL 1.2 1.0 Alkaline Phosphatase U/L 577* 620* AST U/L 127* 135* ALT U/L 44* 42* Latest Reference Range & Units 10/11/24 12:20 01/05/25 20:26 Alpha-Fetoprotein Tumor Marker 0.0 - 8.3 ng/mL 678.6 (H) 10,274.0 (H) Imaging: US ABDOMEN LIMITED Result Date: 01/06/2025 IMPRESSION 1. Cholelithiasis and borderline increased gallbladder wall thickness. No pericholecystic fluid. Negative sonographic sign. Findings are equivocal for acute cholecystitis and may be related to cirrhosis however consider correlation with HIDA scan if there is persistent concern for acute c holecystitis. 2. Cirrhosis. 2.4 cm hypoechoic mass in the right hepatic lobe consistent with known LI-RADS [address] ABD/PELVIS W IV CONTRAST - WO ORAL CONTRAST Result Date: 01/05/2025 IMPRESSION: 1. Extensive cirrhotic changes of the liver with 1.3 cm nodular density posterior exophytic right lobe may represent regenerating nodule but is nonspecific. MRI can further evaluate as clinically indicated. 2. Portal venous hypertension changes 3. Moderate abdominal and pelvic ascites 4. Luz hepatic adenopathy with nodes up to 5 cm in diameter. 5. Calcified gallstone with some pericholecystic fat ill distinctness which is nonspecific in the setting of ascites.Some linear calcification within the gallbladder wall is also suspected. If cholecystitis is suspected clinically ultrasound can further evaluate. THIS DOCUMENT HAS BEEN ELECTRONICALLY SIGNED BY NISA BAUTISTA MD CT CHEST WO CONTRAST Result Date: 01/05/2025 IMPRESSION: 1. Right posterior pleural-based mass with erosive/destructive changes of the right posterior 6th rib highly suspicious for neoplastic disease. 2. Right scapular lesion highly suspicious for bony metastasis. 3. Ground-glass 3 mm nodule left lung anteriorly nonspecific. 4. 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 THIS DOCUMENT HAS BEEN ELECTRONICALLY SIGNED BY NISA BAUTISTA MD XR CHEST 1 VIEW Result Date: 01/05/2025 IMPRESSION 1. No acute cardiopulmonary findings. 2. Large lytic lesion in the posterior right 6th rib. 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 Patient originally scheduled for radio-embolization and systemic therapy but given new ascites concerning for decompensated cirrhosis and concurrent suspected neoplastic lesions in pleura and possibly scapula concerning for metastatic disease patient now [facility] Liver Cancer Stage C, and hence would preferentially benefit from systemic therapy over radio-embolization but given concurrent C-diff will likely have to hold off at this time. Additionally noted to have concerns of acute cholecystitis on HIDA scan. RECOMMENDATIONS/PLAN: - Recommend diagnostic paracentesis - particularly in the context of new ascites and abdominal painand to rule out malignant ascites - Agree with oncology consult - if decision made to start systemic therapy - she will need an EGD prior to initiation of systemic therapy - Acute cholecystitis management per General Surgery - Daily MELD 3.0 labs - Remainder of care per primary; hepatology to continue to follow I have discussed the case with my attending, Dr Perez. Attending Attestation: I have discussed the patient's management with the medical trainee and agree with the note. Please refer to the documented findings and plan of care. The patient's bedside service today consisted of an evaluation. I was present and confirmed the findings of the history and exam. documented in this encounter Nursing Notes * Cata Pineda RN - 01/12/2025 9:41 AM EDT SBAR FOR POST INTERVENTIONAL RADIOLOGY PROCEDURE Patient Name: Neha Marks Age:[age] year old Sending to: GP3 Procedure: Bone Lesion Biopsy Medications Administered: yes: see MAR Special Instructions: Keep dressing on for 24 hours Concerns: no Report from: Cata PATINO Patient sent via: Bed Reason for SBAR handoff: Transfer Patient meets discharge criteria for Interventional Radiology. Vital signs stable. Dressing clean, dry, and intact. Patient awake and oriented to pre procedure baseline. Patient with no nausea/vomiting. All belongings sent with patient. Vital Signs: BP: 139/76 (01/12/25 0940) Temp: 36.8 °C (98.2 °F) (01/12/25 0940) Pulse: 100 (01/12/25 0940) Resp: 16 (01/12/25939) SpO2: 92 % (01/12/25939) Weight: 77.8 kg (171 lb 8 oz) (01/12/25 0500) Height: 160 cm (5' 3") (01/06/25 1809) Neurological: Bg Coma Scale - For patients greater than two years old Eyes Open: Spontaneous (01/12/25939) Best Verbal Response: Verbally appropriate for age (01/12/25939) Best Motor Response: Obeys commands appropriate for age (01/12/25939) Coma Score: 15 (01/12/25939) Activity: Four Extremities LOC: Fully Awake or Pre-Anesthetic Level of Consciousness BP: Less than (+/-) 20% Resp: Deep Breathe and Cough Freely (01/12 931) Respiratory: Pain Assessment Flowsheet Row Most Recent Value Pain Assessment Scale [facility] Adult Scale 0-10 (18 years and older) Pain Score 0 (no pain) Lines: Peripheral Line Left;Lower Arm 22 Gauge (Active) Status Capped/Locked;Flushes easily;Alcohol disinfectant cap;Cap changed 01/12/25 Tubing Changed N/A 01/12/25 Phlebitis Scale 0 01/12/25 Infiltration Scale 0 01/12/25 Site Description (Other) Without redness, swelling or drainage 01/12/25 Site Intervention Flushed 01/12/25 Dressing Assessment Dressing clean, dry, and intact 01/12/25 Dressing Intervention None required 01/12/25 Number of days: 5 * Cata Pineda RN - 01/12/2025 8:13 AM EDT fountain pen nibs inspector note Name: Neha Marks Date: 01/12/2025 Time: 8:49 AM Procedure: Right Scapula Lesion Biopsy Patient ID band checked using two identifiers. Patient placed on procedure table, prone position, with comfort measures intact and safety strap in place. Hemodynamic monitoring placed and initiated. Patient denies any current complaints at current time. 9:01 AM Silverware Supervisor imaging obtained. Reevaluation statement: RN received verbal confirmation that the patient was reevaluated by Dr. Jay Kincaid immediately prior to the sedation at 9:05 AM . 9:06 AM Site marked. 1 mg Versed and 50 mcg Fentanyl given per order of Dr. Jay Kincaid. Order was verbalized and verified with same provider prior to administration. Procedure by physician. 9:09 AM Timeout performed by Dr. Jay Kincaid. 9:10 AM Staff prepares and preps for procedure. 9:12 AM 1 mg Versed and 50 mcg Fentanyl given per order of Dr. Jay Kincaid. Order was verbalized and verified with same provider prior to administration. 9:14 AM Procedure started by Dr. Jay Kincaid, and scrubbed RT Ruth Robledo. 1% buffered lidocaine given by doctor at right site. Doctor begins to obtain access. 9:[address] imaging obtained. 9:[address] imaging obtained. 9:[address] imaging obtained. 9:22 AM Access obtained. 9:23 AM Biopsies obtained, given to on site cytology. 9:30 AM Access removed and manual pressure to site. CT imaging obtained. 9:31 AM Hemostasis obtained. Area cleaned. Gauze and Tegaderm dressing applied. Specimens taken by on site, cytology staff. Patient tolerated procedure well without complications. All wires, catheters, sheaths and other devices have been inspected prior to the procedure for damage. This has been confirmed by the scrubbed RT and the operating physician. All items not intended to remain in the patient have been inspected, accounted for and have been removed from the patient atthe end of the procedure. This has been confirmed by the scrubbed RT and the operating physician. Pt did receive conscious sedation for their procedure, and was sedated from 9:06 AM to 9:34 AM. Total medications given Versed: 2 mg Fentanyl: 100 mcg 1% buffered lidocaine: 10 mL Please see doctor's operative note for additional details. * Citlali Garcia LPN - 01/09/2025 3:32 PM EDT Clinical Goal(s): patient will come off her oxygen this shift (01/09/25 0700) Possible barriers to meeting goal(s)/advancing plan of care: Shortness of breath with ambulation Stability of the patient: Unstable - high likelihood or risk of patient condition declining or worsening Summary regarding today's goal(s): Not Met: Goal not met Recommendations: Use 2 L nasal canula while patient ambulates, room air at rest. Continue to monitor patients oxygen needs and requirements, make medicine heaters service aware of changes in status. * Citlali Garcia LPN - 01/09/2025 9:15 AM EDT Patient complained of chest pain "only while coughing" and right shoulder pain. Paged Dr. Cheng Mcnally and stated too get an EKG. EKG obtained normal sinus rhythm. Will continue to monitor patient for chest pain for patient safety. * Citlali Garcia LPN - 01/08/2025 3:51 PM EDT Clinical Goal(s): Pt will be free of injury (01/08/25 0700) Possible barriers to meeting goal(s)/advancing plan of care: Infection Stability of the patient: Moderately unstable - medium risk of patient condition declining or worsening Summary regarding today's goal(s): Met: goal met Recommendations: hourly rounds * Rona Molina RN - 01/06/2025 6:20 PM EDT Dual Licensed Skin Assessment completed by Rona Molina RN and Amanda Huynh RN. The patient is/has a N/A Skin Breakdown (includes non blanchable erythema): No documented in this encounter ED Notes * Martínez Trivedi DO - 01/06/2025 2:14 AM EDT HISTORY OF PRESENT ILLNESS Patient is a 64-year-old C diff positive female with a history of cirrhosis secondary to hepatitis-C virus and hypertension presenting to the ED has a transfer from [facility] after she was noted to CT abdomen pelvis features concerning for possible cholecystitis. [facility] and right-sided chest pain. She had an outpatient CT chest for cold symptoms that has notable for right posterior pleural-based mass with a erosive changes of the right posterior 6th rib. While at [place], sepsis alert was initiated. That was notable for transaminitis and elevated alk-phos. She had a CT abdomen and pelvis with IV contrast that showed extensive cirrhotic changes of the liver with a notable 1.3 cm nodular density of the right lobe. Prior to transfer to us, the patient was given a g of Tylenol, DuoNeb x2, fentanyl 50 mcg x2, Dilaudid 1 mg, Zosyn, vancomycin, and approximately 2 L of normal saline solution. She required 3 L of oxygen, which she usually does not require. Upon arrival, the patient reports that she has mild right upper quadrant pain at this time. Review of Systems All other systems reviewed and are negative. The patient's allergies, past history, and medications were reviewed. PHYSICAL EXAM Initial Vitals (see all): BP 137/79 | Pulse 92 | Resp 20 | Temp 97.7 | O2 95 %, Nasal Cannula | Weight 77.11 kg | Height 159.4 cm | BMI 30.35 kg/m2 Initial Pain Assessment (see all): 6 (severe pain)/10, Aching, location: epigastric ([facility] Adult Scale 0-10 (18 years and older)) Physical Exam Vitals and nursing note reviewed. Constitutional: Appearance: Normal appearance. HENT: Head: Normocephalic and atraumatic. Right Ear: External ear normal. Left Ear: External ear normal. Nose: Nose normal. Mouth/Throat: Mouth: Mucous membranes are moist. Pharynx: Oropharynx is clear. Eyes: Extraocular Movements: Extraocular movements intact. Pupils: Pupils are equal, round, and reactive to light. Cardiovascular: Rate and Rhythm: Normal rate and regular rhythm. Pulses: Normal pulses. Heart sounds: Normal heart sounds. Pulmonary: Effort: Respiratory distress present. Breath sounds: Wheezing and rhonchi (diffusely) present. Abdominal: Tenderness: There is abdominal tenderness (right upper quadrant pain). There is no right CVA tenderness or left CVA tenderness. Musculoskeletal: General: Normal range of motion. Cervical back: Normal range of motion. Skin: General: Skin is warm. Capillary Refill: Capillary refill takes less than 2 seconds. Neurological: General: No focal deficit present. Mental Status: She is alert and oriented to person, place, and time. Mental status is at baseline. Psychiatric: Mood and Affect: Mood normal. Behavior: Behavior normal. Thought Content: Thought content normal. Judgment: Judgment normal. PROCEDURES AND TREATMENTS ED Orders | ED Results MEDICAL DECISION MAKING Nursing notes and vital signs were reviewed. ED consults were placed. ED Course as of 01/06/25 0542 Rica Jan 06, 2025 0415 US Abdomen: 1. Cholelithiasis and borderline increased gallbladder wall thickness. No pericholecystic fluid. Negative sonographic sign. Findings are equivocal for acute cholecystitis and may be related to cirrhosis however consider correlation with HIDA scan if there is persistent concern for acute cholecystitis. 2. Cirrhosis. 2.4 cm hypoechoic mass in the right hepatic lobe consistent with known LI-RADS 5 lesion. [HR] 0415 EGS consulted given aforementioned US. [HR] 0458 I consulted hospital medicine for admission. They recommend hospitalist admission for oncologyworkup. [HR] ED Course User Index [HR] Singh Zamora, Differential Diagnoses Based on my history, physical exam, and evaluation, the differential includes, but is not limited, to the following diagnoses: Sepsis, cholecystitis, ascending cholangitis, choledocholithiasis, worsening malignancy, decompensate cirrhosis,. Patient is a 64-year-old female with a history as above presenting to the ED from [facility] for further evaluation into notable CT findings of possible cholecystitis. While at [facility], she had a sepsis alert and was given Zosyn and vancomycin along with fluid resuscitation. She was also given significant opioid analgesia for her symptoms with only partial relief. Upon arrival, vital signs stable with a ill-appearing female in no acute distress. She is requiring 3 L of oxygen to maintain adequate saturations. Examination notable for significant right upper abdominal pain. She also had rhonchorous breath sounds and increased work of breathing. Patient was given 4 mg of morphine for her symptoms. We did an ultrasound of her abdomen to assess for cholestatic disease. Ultrasound revealed cholelithiasis and borderline increased gallbladder wall thickness. It also noted cirrhosis with a 2.4 cm hypoechoic mass in the right hepatic lobe. Given these findings, surgery was consulted. They state that the patient is not a surgical candidate acutely. They recommended admission to Medicine for malignancy evaluation and oncologic management. Medicine was consulted who accepted the patient to their service for further treatment evaluation. Prior to transition of services, patient was updated on the plan of care and all questions were addressed to her satisfac tion. Amount and/or Complexity of Data Reviewed Radiology: ordered. Risk Prescription drug management. Decision regarding hospitalization. Clinical Impressions Cirrhosis of liver with ascites, unspecified hepatic cirrhosis type (HCC) Acute hypoxic respiratory failure (HCC) Disposition Admitted. I discussed the management of this patient with the admitting provider and I made a decision to admit the patient. Admission Order Ordered Status . 01/06/25 0502 Admit for Inpatient Services (incl ZPO) ONCE Completed Martínez Trivedi was the attending physician who supervised the care of this patient. Singh Zamora DO ATTENDING ATTESTATION I have seen and examined this patient on the 01/06/2025 visit. I have discussed the patient's management with the provider listed above and agree with the note, findings, and plan of care. documented in this encounter Miscellaneous Notes * Ancillary Progress Note - Share, Sharyn Martin RDN - 01/14/2025 2:19 PM EDT CLINICAL NUTRITION ADULT RISK ASSESSMENT [address] [address] Name: Neha Marks Location: [facility] G303/A Date: 01/14/2025 Time: 2:19 PM How patient was identified (select 2): Medical record number and date Reason for RDN intervention: extended LOS Primary diagnosis: 64 year old female with a history of hepatocellular carcinoma, decompensated cirrhosis admitted for acute cholecystitis in the setting of decompensated cirrhosis with ascites, treated conservatively with Zosyn. Course complicated by discovery of right 6th rib lesion, right scapular lesion, left frontal bone mass, right pleural lesion all of which are concerning for metastasis of her hepatocellular carcinoma. Other pertinent information: The patient states that her appetite has been fair since admission. Eating ~75-100% of most meals per chart review. She states that her daughter has also been bringing her meals and/or takeout at least once a day. No abdominal pain, nausea, or vomiting noted. Denies difficulty chewing or swallowing. Anthropometrics Measurements Admission weight (for dietitians): 78.1 kg Height: 160 cm (5' 3") (01/06/25 180) Weight: 77.2 kg (170 lb 3.1 oz) (01/14/25 0944) BMI: 30.51 (01/06/25 180) Usual Body Weight or EDW for Dialysis Patients: 73-77 kg per EHR Diet: Regular Previously followed diet: Regular Food Allergies/Intolerances: None known Oral Nutrition Supplement (ONS): None Pertinent medications/vitamins/minerals/supplements: Cholestyramine Light oral powder, Multivitaminwith minerals RISK FACTORS: Adult Energy Intake: No significant decrease Interpretation of Weight Change: No recent/significant weight change Skin: Intact NUTRITION RISK CATEGORY: Nutrition Risk Category: Low/Moderate (0-1 factors) Clinical Nutrition Recommendations: Diet: Continue current nutrition plan NUTRITION INTERVENTION/PLAN: Continue current care plan Will follow and adjust nutritional plan as medical condition requires. Please contact for change(s)in patient condition requiring earlier intervention. Sharyn Hair MS, RDN, LDN, [facility] Clinical Dietitian [employer] | Extension [phone] * Ancillary Progress Note - Trevon Davey MSW - 01/14/2025 11:55 AM EDT CARE MANAGEMENT - ADULT DISCHARGE NOTE [facility]-[address] [address] Name: Neha Marks Location: [facility] G303/A Date: 01/14/2025 Time: 11:55 AM The following coordination of care and discharge plan has been coordinated with the care team, patient, family and/or caregiver according to the patients’ needs and preferences. Discharge Discharge Second Notice Important Message from Medicare delivered: Yes (01/14/25 1100) Date Delivered: 01/13/25 (01/14/25 1100) Retain copy in EHR: Yes (01/14/25 1100) Was Caregiver/Family/Facility contacted regarding discharge: Yes (01/14/25 1100) Discharge Transportation: Family/Friends drive (01/14/25 1100) Date of scheduled discharge transportation: 01/14/25 (01/14/25 1100) Time of scheduled discharge transportation: (Afternoon) (01/14/25 1100) Patient declined post-hospital transition of care recommendation: N/A (01/14/25 1100) Final Discharge Plan (Complete only at time of Discharge): Home with Services ([facility] Home Health) (01/14/25 1100) Home Medical Care - Admitted Since 01/06/2025 Service Provider Services Address Phone Fax Patient Preferred Last Updated [facility] Home Healthcare - [facility] [address] [facility] [address] [phone] -- Trevon Davey MSW 01/14/2025 1156 Narrative: Pt agreeable to the following discharge plan. Pt to discharge home with [facility] services (SOC within 24-48 Hours). SW confirmed d/c plan with Pt at bedside and [facility] HH olive grower. SW to continue to monitor Pt status up through discharge for evolving needs, and assist with coordinating disposition planning needs as appropriate. Please contact Care Management at [phone], Option 8 with any changes to this Pt's disposition plan. Family to provide d/c transportation on 01/14/2025 in the Afternoon. * Ancillary Progress Note - Trevon Davey MSW - 01/14/2025 8:55 AM EDT HOME CARE REFERRAL FORM CARE MANAGEMENT [facility] [address] Referred By: PAM Still Admission Date: 01/06/2025 Discharge Date: 01/14/2025 Discharge Time: Afternoon Start Date: 24-48 Hours after Discharge Agency Referred To: [facility] Home Health Care [place] - ; PATIENT INFORMATION: Name: Neha Marks Address: [address] [place] [id number] : 1960 Phone: There is no home phone number on file. SSN: [id number] County: [place] Caregiver / Teachable Person: Zain Marks Relationship: Emergency Contacts: Extended Emergency Contact Information Primary Emergency Contact: Zain Marks Address: [address] [place] [id number] [facility] Mobile Relation: Spouse Secondary Emergency Contact: [place] [address] [facility] Mobile Relation: Adult Child MEDICAL INFORMATION: Principal Diagnosis: Acute hypoxic respiratory failure (HCC) Diet: As per discharge instructions. Allergies: Patient has no known allergies. Isolation Type: Enteric Activity Restrictions: As ordered Isolation For: Clostridium Difficile HOME CARE ORDERS: (Discipline and Frequency): Chcf Assessment Disease Management and Teaching Medication Management and Teaching Home Safety Evaluation Medications Dose, Frequency, & Route: As ordered Ordering Physician and Contact Information: Rema Christianson DO, [address] [place], [place] [id number], Comments: Start of Care for Home Health Services PCP: PCP: KALANI GONZALES [address] [place] [phone] D/C Physician: Rema Christianson DO Insurance: See attached facesheet. * Care Plan - Purnima Jackson RN - 01/13/2025 6:57 PM EDT Clinical Goal(s): Pt will remain free from injury this shift. (01/13/25 0800) Possible barriers to meeting goal(s)/advancing plan of care: disease process Stability of the patient: Moderately unstable - medium risk of patient condition declining or worsening Summary regarding today's goal(s): Met: Pt will remained free from injury this shift. Recommendations: Monitor vital signs. * Ancillary Progress Note - Michelle Garcia PTA - 01/13/2025 3:13 PM EDT PROGRESS NOTE - Physical Therapy [address] [address] Name: Neha Marks Location: [facility] G303/A Date: 01/13/2025 Time: 3:13 PM Neha Marks is a/an 64 year old female. Patient Status: Inpatient Insurance: Payor: MEDICARE Plan: MEDICARE A AND B Product Type: *No Product type* Patient Seen: at bedside, nursing cleared patient for therapy Patient Identified By: Name, ID Band and Date Diagnosis: acute hypoxic respiratory failure (01/13/251512) Status of treatment: Treatment completed (01/13/251512) Orders: PT evaluation and treatment (01/13/251512) Precautions: Alarms;Falls;Safety;Isolation (01/13/251512) Total Treatment Time--free text: 11 (01/13/251512) Subjective: Patient was agreeable Pain: No complaints of pain P.T. Bed Mobility Supine-Sit: Minimal Assistance (01/07/25 1340) Sit-Supine: Minimal Assistance (01/07/25 1340) Transfers Sit-Stand: Supervision (01/13/251512) Stand-Sit: Supervision (01/13/251512) Ambulation: Distance ambulated (feet): 200 Assistive Device: No device Assist: Contact Guard Stair Training: Number of stairs: 3 Number of handrails: 1 (left) Level of Assistance: Contact guard assistance Balance Sit (Static): Fair (01/13/251512) Sit (Dynamic): (Fair-) (01/13/251512) Stand (Static): Fair (01/13/251512) Stand (Dynamic): (Fair-) (01/13/251512) Patient and or Family Goal(s): to get well Topic of Education: Safety with mobility and Stair training Extremity Exercise Sitting: Hip;Knee;Ankle (01/13/251512) Hip : Bilateral LE;Flexion;1 set of 10 (01/13/251512) Knee : Bilateral LE;Flexion;Extension;1 set of 10 (01/13/251512) Ankle: Bilateral LE;Dorsiflexion;Plantar flexion;1 set of 10 (01/13/251512) Method of Education: Verbal discussion and explanation provided to patient: verbalized understanding and or agreement of this information and demonstrated the exercise and or task Treatment Provided: Gait Training 11 minutes: gait training with no device stair training Alarm Status Patient positioned in: Chair (01/13/251512) With: Call krause in reach (alarm not on upon arrival) (01/13/251512) Following session patient seated OOB in chair with chair alarm not activated (no alarm upon arrival) Patient Education Review of Precautions: Safety;Fall (01/13/251512) Review of Exercises: Verbal Exercises Provided;Pt Demonstrated Exercise (01/13/251512) Safety Awareness: Patient verbalizes insight of current deficits;Patient demonstrates carryover of insight during functional tasks;Patient can communicate basic needs;Needs cueing supervision (01/13/251512) Preferred learning method: Combination (01/13/251512) Barriers to learning: Medical Status (01/13/251512) Method of Education: Verbalized to patient;Patient demonstrated task (01/13/251512) Assessment: Patient was found seated in chair upon arrival and agreeable to work with physical therapy services. Patient completed sit to stand transfers from the chair with supervision and [id number] feet without a device and contact guard assistance. Noted patient ambulated with a decreased step length/height and slow gait. Patient completed 3 stairs with a left rail using a rolling walker and step stool to simulate. Patient completed exercises seated in the chair to increase lower extremity strength (please see flowsheet). Ended session with patient reclined in chair with pillows for comfort, pressure pad alarm not activated (no alarm upon arrival), and call krause within reach. Please consider post-acute care services which may include home health, senior care, outpatient therapyor inpatient rehabilitation. The level of care will be determined in collaboration with patient, family/caregiver and care team members. Deficits requiring P.T. treatment needs: Safety;Mobility;Balance;Weakness;Endurance;Range of motion;Lower extremity strength (01/13/251512) Equipment needs: No device (01/13/251512) Plan: Continue with current treatment plan established on evaluation. AM PAC Score with Stairs: 18 A portion of this AM-PAC assessment not scored based on functional assessment; rather clinical decision making utilized based on current findings and/or prior level of function. Please refer to future AM-PAC calculations of functional ability as they become available. * Progress Notes - Non-Billable - Emigdio Hogan DO - 01/13/2025 10:54 AM EDT PROGRESS NOTE - Palliative Medicine [facility]-[address] [address] Name: Neha Marks Location: [facility] G303/A Date: 01/13/2025 Time: 10:56 AM OBJECTIVE: Most Recent Vital Signs: BP: 136 mmHg/67 mmHg (01/13/25858) Pulse: 105 (01/13/25858) Resp: 16 (01/13/25621) Temp: 36.39 C (01/13/25621) Temp Summary: Temp Min: 36.4 °C (97.5 °F) Max: 36.8 °C (98.2 °F) SpO2: 95 % (01/13/25621) O2 flow rate: 3 L/MIN (01/12/25929) Supplemental O2 Delivery: Room Air, None (01/13/25621) Vital Signs Last 24 Hours: Systolic BP: Most Recent Systolic BP Av.1 mmHg Min: 120 mmHg Max: 145 mmHg Temperature: Most Recent Temperature Av.5 C Min: 36.39 C Max: 36.78 C Pulse: Pulse Av.8 Min: 93 Max: 105 Respirations: Resp Av.2 Min: 16 Max: 18 SpO2: SpO2 Av.4 % Min: 92 % Max: 95 % LABS REVIEWED: yes, reviewed IMAGING REVIEWED: no new studies ASSESSMENT/PLAN: 64-year-old female with history of hepatocellular carcinoma with bony metastasis, admitted for acute cholecystitis, presenting with abdominal pain in the setting of malignant ascites and new lesions suspicious for metastases pursuing IR biopsy for future staging and treatment planning with plan for discharge. Cancer-related pain -optimal control May continue the following upon discharge -Continue morphine sulfate tablets 7.5 milligrams PO Q6H ATC -May continue IR morphine sulfate 7.5 mg PO PRN Q4H for moderate pain - May discontinue morphine 2 mg IV PRN upon discharge -Continue gabapentin 100 milligrams three times daily Nausea/vomiting -Continue Zofran 4 ODT Q6H PRN for nausea and vomiting. Return in 2 weeks upon hospital discharge. Return visit order placed. SIGNOFF IMPRESSION AND RECOMMENDATIONS: Specialty Impression Metastatic Liver Cancer Recommended medication(s) at discharge Morphine IR 7.5 mg q6 ATC Morphine IR 7.5mg q4 hrs prn Recommended discharge testing (lab, imaging, etc.) N/A Other recommended care at discharge N/A Follow-up in Specialty Clinic Follow up in 2 weeks Palliative Medicine will sign off at this time. We appreciate the consult. Please reach out with any further questions or concerns, or if the condition of the patient worsens at which time new consult is not needed. Instead please reach out to on-call Palliative Medicine provider via tiger text. The sales enablement consultant has placed the following orders for their recommendations: Recommended Follow-up Thank you for allowing us to participate in the ongoing care of this patient. Please don't hesitate to call or page with any additional concerns. Cosigned by Leif Atkinson MD at 01/13/2025 11:29 AM EDT * Ancillary Progress Note - Trevon Davey MSW - 01/13/2025 9:24 AM EDT CARE MANAGEMENT - ADULT TRANSITION NOTE [facility]-[address] [address] Name: Neha Marks Location: [facility] G303/A Date: 01/13/2025 Time: 9:24 AM Risk Stratification Risk Stratification Psycho Social / Medical Concerns Identified: Adjustment to illness/injury (01/07/25 1000) Accessed Neighbor[employer] to connect patients to social care resources: No (01/07/25 1000) OBRA or OPTIONS needed for placement: No (01/07/25 1000) Readmission Risk Score: 21.64 (01/13/25 0801) AM-PAC Score With Stairs : 19 (01/13/25 0400) Caregiver Information Emergency Contacts Name Relation Home Work Mobile Zain Marks Spouse [phone] Gibran Colby Adult Child [phone] Other Contacts None on File Transition of Care Checklist Narrative: Pt not medically stable for d/c at this time. Anticipate Pt to remain I/P at [facility] for 1-2 more days pending clinical progression and treatment plan. Pt expected to be able to discharge home once medically cleared. SW to continue to monitor Pt's medical status throughout this admission for evolving needs, provide psychosocial support, and assist with coordinating disposition planning needs as indicated. Anticipated Transportation at Discharge: Family Patient/Family Expectations: Home Transition Planning Transition Planning Transition Plan/Considerations: Needs uncertain at this time - Continue monitoring for needs (01/07/25 1000) Additional Considerations: n/a Care Management will continue to monitor and assist with discharge planning needs * Progress Notes - Non-Billable - Lesley Tejada DO - 01/12/2025 3:17 PM EDT POST-PROCEDURE CHECK Procedure(s): IR biopsy Subjective: Patient doing well post procedure, has no complaints. The patient denies pain, numbness, tingling, bleeding, weakness at the procedure site. Her family at bedside told me that they are happy that sheis getting taken care of. The patient would like to leave by the weekend, I told her that I cannot promise this. Family states they are okay with her staying here as long as they need. Objective: BP 122/73 | Pulse 93 | Temp 36.6 °C (97.9 °F) (Tympanic) | Resp 16 | Ht 1.6 m (5' 3") | Wt 77.8 kg (171 lb 8 oz) | SpO2 94% | BMI 30.38 kg/m² | BSA 1.86 m² Peripheral Line Left;Lower Arm 22 Gauge (Active) Number of days: 5 General: Patient in no apparent distress, chronically ill appearing HEENT: normocephalic, atraumatic, no scleral icterus Heart: regular rate and rhythm; S1 and S2 present; no murmurs, rubs or gallops. Pulmonary: minimal crackles in lower lung lobes Abdomen: Soft, non-tender, non-distended. No rebound or guarding. Extremities: 2+ pitting edema present at lower extremity bilaterally Skin: [place], warm, no wounds or lesions present. Neuro: AAOx3. No gross motor or sensory deficits. Psych: Appropriate mood and affect, not tearful Access/Surgical site: right scapular lesion Assessment/Plan: 64 year old year old female who underwent right scapular lesion biopsy without complications. Diet: regular diet All questions answered to best of my ability Lesley Tejada DO Resident Physician * Postprocedure Note - Dov Dalton DO - 01/12/2025 9:30 AM EDT PROCEDURE NOTE - Interventional Radiology [address] [address] Name: Neha Marks Location: RADIOLOGY WAITING ROOM/IR Date: 01/12/2025 Time: 9:34 AM PROCEDURE: Right scapula osseous lesion biopsy GASKET NOTCHER: Dr. Jay Kincaid ASSISTANTS: Dr Dov Dalton ANESTHESIA: conscious sedation COMPLICATIONS: none SPECIMEN: Cytology ESTIMATED BLOOD LOSS: negligible FINDINGS: Successful right scapula bony lesion biopsy * Care Plan - Michelle Nguyen RN - 01/12/2025 5:17 AM EDT Clinical Goal(s): pt will remain free from injury/falls (01/12/25 0000) Possible barriers to meeting goal(s)/advancing plan of care: pain, weakness, hospitalization Stability of the patient: Moderately stable - low risk of patient condition declining or worsening Summary regarding today's goal(s): Met: no injury/falls during shift Recommendations: fall prevention protocol, hourly rounding * Progress Notes - Non-Billable - iAdan Ervin DO - 01/11/2025 8:08 PM EDT BRIEF INPATIENT UPDATE NOTE CLINICAL TEAM: Infectious Diseases Team 1 (non billable - patient not seen in person) Name: Neha Marks Date: 01/11/2025 Time: 8:08 PM HISTORY OF PRESENT ILLNESS The patient was admitted 01/06/2025 for abdominal pain (in the context of HCC). Workup revealed possible acute cholecystitis. The patient was evaluated by GI and there was no plan for endoscopic drainage. ID was consulted due to concurrent diarrhea that was presumably due to CDI but was not improving with FDX. PATIENT'S CURRENT STATUS Afebrile. Hemodynamics stable. WBC WNL MICRO DATA Recent Cultures (2 Weeks) 01/05/2025 01/05/2025 8:47 PM 8:26 PM BLOOD CULTURE GROWTH No growth No growth CURRENT ABX DOSING INFO: Body mass index is 33.59 kg/m². Serum creatinine: 0.6 mg/dL 01/11/25 1833 Estimated creatinine clearance: 72.8 mL/min IMPRESSION: Acute cholecystitis Possible CDI RECOMMENDATIONS: I am not aware of any guidelines that provide a definite duration of ABX for patients with acute cholecystitis but that do not undergo source control. I recommend to continue Zosyn until cholecystitis is deemed to be resolved by Surgery/GI. I recommend to continue FDX for one week after completion of IV ABX. I continue to recommend that GI workup other causes of diarrhea, especially since the patient reported little improvement with standard treatment for CDI. COMMENT(S): Infectious Disease is signing off. Contact us if any new issues arise. Please note that it is not always possible for Infectious Disease to stay on the case until all workup has finalized. If any testing finalizes after ID signs off, you must notify us (ID is not automatically notified about any inpatient testing results). * Ancillary Progress Note - Michelle Garcia PTA - 01/11/2025 12:19 PM EDT PROGRESS NOTE - Physical Therapy [facility] [place]-[address] [address] Name: Neha Marks Location: [facility] [place] G303/A Date: 01/11/2025 Time: 12:19 PM Neha Marks is a/an 64 year old female. Patient Status: Inpatient Insurance: Payor: MEDICARE Plan: MEDICARE A AND B Product Type: *No Product type* Patient Seen: at bedside, nursing cleared patient for therapy Patient Identified By: Name, ID Band and Date Diagnosis: acute hypoxic respiratory failure (01/11/251218) Status of treatment: Treatment completed (01/11/251218) Orders: PT evaluation and treatment (01/11/251218) Precautions: Alarms;Falls;Safety;Isolation (01/11/251218) Total Treatment Time--free text: 24 (01/11/251218) Subjective: Patient was agreeable Pain: No complaints of pain P.T. Bed Mobility Supine-Sit: Minimal Assistance (01/07/25 1340) Sit-Supine: Minimal Assistance (01/07/25 1340) Transfers Sit-Stand: Contact Guard (01/11/251218) Stand-Sit: Contact Guard (01/11/251218) Ambulation: Distance ambulated (feet): 10 + 90 Assistive Device: No device held onto IV pole while ambulating Assist: Contact Guard Balance Sit (Static): Fair (01/11/251218) Sit (Dynamic): (Fair-) (01/11/251218) Stand (Static): (Fair-) (01/11/251218) Stand (Dynamic): (Fair-) (01/11/251218) Patient and or Family Goal(s): to get well Topic of Education: Safety with mobility Extremity Exercise Sitting: Hip;Knee;Ankle (01/11/251218) Hip : Bilateral LE;Flexion;1 set of 10 (01/11/251218) Knee : Bilateral LE;Flexion;Extension;1 set of 10 (01/11/251218) Ankle: Bilateral LE;Plantar flexion;Dorsiflexion;1 set of 10 (01/11/251218) Method of Education: Verbal discussion and explanation provided to patient: verbalized understanding and or agreement of this information and demonstrated the exercise and or task Treatment Provided: Therapeutic Activities 12 minutes: bed mobility training transfer training toilet transfer training Gait Training 12 minutes: gait training with no device Alarm Status Patient positioned in: Chair (01/11/251218) With: Call krause in reach (no alarm upon arrival) (01/11/251218) Following session patient seated OOB in chair. No alarm upon arrival. Patient's nurse aware. Patient Education Review of Precautions: Safety;Fall (01/11/251218) Review of Exercises: Verbal Exercises Provided;Pt Demonstrated Exercise (01/11/251218) Safety Awareness: Patient verbalizes insight of current deficits;Patient demonstrates carryover of insight during functional tasks;Patient can communicate basic needs;Needs cueing supervision (01/11/251218) Preferred learning method: Combination (01/11/251218) Barriers to learning: Medical Status (01/11/251218) Method of Education: Verbalized to patient;Patient demonstrated task (01/11/251218) Assessment: Patient was found seated in chair upon arrival and agreeable to work with physical therapy services. Patient completed sit to stand transfers from the chair and toilet with contact guard assistance. Patient ambulated 10 and 90 feet with contact guard assistance and holding onto the IV pole. Noted patient had decreased step length/height and a slow gait. Patient completed exercises seated in the chair to increase lower extremity strength(please see flowsheet). Ended session with patient seated in chair with pillows for comfort, alarm not activated (no alarm upon arrival), and call krause within reach. Please consider post-acute care services which may include home health, senior care, outpatient therapy or inpatient rehabilitation. The level of care will be determined in collaboration with patient, family/caregiver and care team members. Deficits requiring P.T. treatment needs: Safety;Mobility;Balance;Weakness;Endurance;Range of motion;Lower extremity strength (01/11/25 121) Equipment needs: Rolling walker (01/07/25 1340) Plan: Continue with current treatment plan established on evaluation. AM PAC Score with Stairs: 17 A portion of this AM-PAC assessment not scored based on functional assessment; rather clinical decision making utilized based on current findings and/or prior level of function. Please refer to future AM-PAC calculations of functional ability as they become available. * Ancillary Progress Note - Radha Christina COTA/Ger - 01/11/2025 11:55 AM EDT PROGRESS NOTE - Occupational Therapy [facility] [place]-[address] [address] Name: Neha Marks Location: [facility] [place] G303/A Date: 01/11/2025 Time: 11:55 AM Neha Marks is a 64 year old female. Patient Status: Inpatient Insurance: Payor: MEDICARE Plan: MEDICARE A AND B Product Type: *No Product type* Patient Seen: at bedside, nursing cleared patient for therapy Patient Identified By: Name, ID Band and Date Diagnosis: cirrhosis of liver; acute hypoxic respiratory failure (01/11/25 115) Status of treatment: Treatment completed (01/11/25 115) Orders: OT evaluation and treatment (01/07/25 1340) Precautions: Alarms;Falls;Safety;Isolation;Oxygen (01/11/25 115) Total Treatment Time: 24 (01/11/25 115) Subjective: Agreeable Pain: Patient has complaints of pain. Pain located around ribs. Observations Consciousness: Alert (01/11/25 115) Orientation: Person (place and time NT) (01/06/25 1457) Psychosocial: Patient can communicate basic needs;Patient can converse in a social setting (01/07/25 1340) Sitting posture: Forward head;Rounded shoulders (01/07/25 1340) Standing posture: Forward head;Rounded shoulders (01/07/25 1340) Safety awareness: The Patient verbalizes insight of current deficits. (01/07/25 1340) Current Functional Status: Activities of Daily Living: Self Care Toileting: Supervision (Please comment) (01/11/25 115) Dressing Upper Body: (declined completed prior) (01/11/25 115) Lower Body: (declined completed prior) (01/11/25 115) Functional Ambulation Assistive Device: Other - Describe (IV pole) (01/11/25 115) Distance in feet:: 10 (and 90) (01/11/25 115) Level of Assistance: Contact Guard (01/11/25 115) OT Transfers Sit-Stand: Contact Guard (01/11/251154) Stand-Sit: Contact Guard (01/11/251154) Toilet: Contact Guard (01/11/251154) Balance Sit (Static): Fair (01/11/251154) Sit (Dynamic): Fair (-) (01/11/251154) Stand (Static): Fair (-) (01/11/251154) Stand (Dynamic): Fair (-) (01/11/251154) Patient Education Education Topic: Plan of care goals;Role of OT (01/11/251154) Review of Precautions: Safety;Fall (01/11/251154) Method of Education: Verbalized to patient (01/11/251154) Education Provided to: Patient;Family (01/11/251154) Response to Education: Receptive and agreeable to education (01/11/251154) Barriers to learning: Medical status (01/11/251154) Preferred learning method: Combination (01/11/251154) Alarm Status Patient positioned in: Chair (01/11/251154) With: Pressure pad alarm intact and functioning and call krause in reach (01/11/251154) Following session patient seated OOB in chair with chair alarm activated and cord plugged into callbell system. Treatment Provided: Self Long-Term Management Trainin minutes Therapeutic Activity: 14 minutes Upper Extremity exercise Demonstrate Exercises: LUE;RUE;Shoulder;Elbow;Wrist;Grasp;2 sets of 10 (01/11/251154) Deficits requiring O.T. treatment needs: ADL/self-care;Balance;Endurance;Fine motor coordination;IADL;Functional mobility;Safety;Upper extremity strength;Upper extremity range of motion;Weakness (01/11/251154) Assessment: Patient sitting in recliner upon entry. [facility] She then stood and walked with IV pole as she stated she has not been using one. She sat onto toilet and completed toileting tasks then walked out into steiner. She returned to room and ended session in chair, declined ADLs d/t completed them prior, agreeable to exercises. Once seated in recliner she completed B/L UE AROM exercises in all available planes. Limited ROM in RUE d/t "bone issues". She was left in recliner with all needs met at end of session. Please consider post-acute care services which may include home health, senior care, outpatient therapy or inpatient rehabilitation. The level of care will be determined in collaboration with patient, family/caregiver and care team members. Plan: continue per plan of care Anticipated Frequency (on eval): 1 to 3 times per week (01/11/25 1155) Equipment Equipment used in Therapy: Rolling walker (01/07/25 1340) AM-PAC Help From Another Person Eating Meals: A little (01/11/25 115) Help From Another Person Taking Care of Personal Grooming: A little (01/11/25 115) Help From Another Person To Put On/Take Off Upper Body Clothing: A little (01/11/25 115) Help From Another Person To Put On/Take Off Lower Body Clothing: A lot (01/11/25 115) Help From Another Person Toileting: A little (01/11/25 115) Help From Another Person Bathing: A little (01/11/25 1155) OT AM-PAC Score: 17 (01/11/25 1155) OT AM-PAC t-Scale Score: 37.26 (01/11/25 115) HLM (Highest Level of Mobility) Goal: Level 5 standing (1 or more minutes) (01/11/25 1219) A portion of this AM-PAC assessment not scored based on functional assessment; rather clinical decision making utilized based on current findings and/or prior level of function. Please refer to future AM-PAC calculations of functional ability as they become available. * Communication - Jay Kincaid MD - 01/10/2025 6:13 PM EDT I saw Ms. Marks and her family this afternoon. I explained that given the CT findings concerning for metastases, we need to determine the source of the mets prior to pursuing Y-90. If they are HCC mets, then we should pursue systemic therapy (if eligible) rather than Y-90. If they are mets of another source, then we will have a multidisciplinary discussion regarding treatments. IR can biopsy one of the bony mets - exact timing TBD Agree with palliative radiation of painful mets after biopsy Appreciate care of primary team. * Ancillary Progress Note - Savi Corea, BANQUET STEWARDESS - 01/10/2025 5:41 PM EDT PATIENT DRIVEN PROTOCOL - Respiratory Care Services [address] [address] Name: Neha Marks Location: [facility] [place] G303/A Date: 01/10/2025 Time: 5:41PM Patient Driven Protocol Summary: Re-evaluation . This Treatment Plan and medications will be reviewed by the Primary Care Team for any contraindications. Respiratory Care Treatment Plan Aerosol Therapy Treatment:: Hand Held Nebulizer Tx PRN with Albuterol Sulfate: Unit dose 0.083%. to reduce work of breathing and improve pulmonary gas exchange. Pulmonary Volume Expansion Therapy: Incentive Spirometry PRN to prevent or treat alveolar consolidation and atelectasis. Secretion Management Treatment: Flutter TherapyPRN to enhance mobilization of secretions. The patient will be re-evaluated: No re evaluation required at this time. The Triage Level is: (Assessment Score = 6 -10) Level 4. Triage Level Definitions: Level 1 Severe Respiratory/Airway Compromise Level 2 Moderate Respiratory/Airway Compromise or high risk for pulmonary complications Level 3 Mild Respiratory/Airway Compromise or moderate risk for pulmonary complications Level 4 Episodic Respiratory/Airway Compromise or low risk for pulmonary complications Level 5 No Respiratory/Airway Compromise Triage 1 Triage 2 Triage 3 Triage 4 Triage 5 greater than 20 16 - 20 11 - 15 6 - 10 0 - 5 Medical Record Assessment Clinical Findings Pulmonary Status: 1 - Smoking less than 1 pack/day or quit less than 5 years ago Surgical Status: 1 - General Surgery Chest X-Ray: 1 - Chronic Changes or CHF Assessment Score: 3 Patient Assessment Clinical Findings Respiratory Pattern: 0 - RR 12 - 20; Patient only gets breathless with strenuous exercise. Breath Sounds: 3 - Crackles, mild wheezes, coarse bronchial, upper airway noises Cough Effectiveness: 0 - Strong non-productive Sputum Production: 0 - No sputum production Level of Activity: 1 - Ambulatory with assist O2 needed to keep SpO2 greater than or equal to 92%: 1 - Oxygen 1-3 LPM or FiO2 less than 35% Assessment Score: 5 Total Assessment Score: 8 Breath Sounds: Inspiratory and expiratory wheezes bilaterally.. Cough and Sputum: No cough was present.. CXR: Narrative & Impression EXAM XR CHEST 1 VIEW - 01/05/2025 8:37 pm HISTORY Sepsis TECHNIQUE Frontal view of the chest COMPARISON Chest CT 01/05/2025. FINDINGS Stable cardiomediastinal silhouette. No lobar consolidation, pleural effusion or pneumothorax. Large lytic lesion in the posterior right 6th rib. IMPRESSION IMPRESSION 1. No acute cardiopulmonary findings. 2. Large lytic lesion in the posterior right 6th rib. Vital Signs: Resp: 20 (01/10/25 1507) Pulse: 102 (01/10/25 1507) Temp: 37.3 °C (99.1 °F) (01/10/25 1507) BP: 133/69 (01/10/25 1507) SpO2: 93 % (01/10/25 1507) Primary Service: [facility]. Admitting Diagnosis: Cirrhosis of liver (HCC) [K74.60] Pulmonary Diagnosis: Pleura Mass . 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 Recommended medication(s) at discharge As per primary team Recommended discharge testing (lab, imaging, etc.) IR for Y90 to liver tumors Radiation oncology possible treatment to 6th rib mass and scapula Other recommended care at discharge F/U with dr. Tunde Plunkett 1 week after discharge Follow-up in Specialty Clinic As above We will sign off at this time. Please call with any questions or should the patient's clinical course change. The sales enablement consultant has placed the following orders for their recommendations: Recommended Follow-up Cosigned by Hany Flaherty MD at 01/10/2025 9:48 PM EDT * Ancillary Progress Note - Hany Mustafa BSW - 01/10/2025 3:06 PM EDT CARE MANAGEMENT - ADULT TRANSITION NOTE [address] [address] Name: Neha Marks Location: [facility] Date: 01/10/2025 Time: 3:06 PM Risk Stratification Risk Stratification Psycho Social / Medical Concerns Identified: Adjustment to illness/injury (01/07/25 1000) Accessed [employer] to connect patients to social care resources: No (01/07/25 1000) OBRA or OPTIONS needed for placement: No (01/07/25 1000) Readmission Risk Score: 20.2 (01/10/25 1200) AM-PAC Score With Stairs : 22 (01/10/25 1000) Caregiver Information Emergency Contacts Name Relation Home Work Mobile Zain Marks Spouse [phone] Gibran Colby Adult Child [phone] Other Contacts None on File Transition of Care Checklist Narrative: Per Service, pt is not medically ready for DC. Pt to be seen by Rad/onc and IR to discuss treatment options. Still managing ABX. Anticipate 2-3 days until medical stability. SW will continue to follow, address pt's evolving needs, and provide psychosocial support. Anticipated Transportation at Discharge: Family vs tbd Patient/Family Expectations: tbd Transition Planning Transition Planning Transition Plan/Considerations: Needs uncertain at this time - Continue monitoring for needs (01/07/25 1000) Additional Considerations: Care Management will continue to monitor and assist with discharge planning needs * Ancillary Progress Note - Sulma Mckeon RRT - 01/09/2025 11:54 AM EDT PATIENT DRIVEN PROTOCOL - Respiratory Care Services [address] [address] Name: Neha Marks Location: [facility]/A Date: 01/09/2025 Time: 11:54 AM Patient Driven Protocol Summary: Re-evaluation . This Treatment Plan and medications will be reviewed by the Primary Care Team for any contraindications. Respiratory Care Treatment Plan Aerosol Therapy Treatment:: Hand Held Nebulizer Tx BID with Duoneb: Unit Dose. to reduce work of breathing and improve pulmonary gas exchange. Additional Aerosolized Treatments: Hand Held Nebulizer Tx PRN with Albuterol Sulfate: Unit dose 0.083%. to reduce work of breathing and improve pulmonary gas exchange. . Pulmonary Volume Expansion Therapy: Incentive Spirometry PRN to prevent or treat alveolar consolidation and atelectasis. . Secretion Management Treatment: Flutter TherapyPRN to enhance mobilization of secretions. The patient will be re-evaluated: within 48 hours. The Triage Level is: (Assessment Score = 6 -10) Level 4. Triage Level Definitions: Level 1 Severe Respiratory/Airway Compromise Level 2 Moderate Respiratory/Airway Compromise or high risk for pulmonary complications Level 3 Mild Respiratory/Airway Compromise or moderate risk for pulmonary complications Level 4 Episodic Respiratory/Airway Compromise or low risk for pulmonary complications Level 5 No Respiratory/Airway Compromise Triage 1 Triage 2 Triage 3 Triage 4 Triage 5 greater than 20 16 - 20 11 - 15 6 - 10 0 - 5 Medical Record Assessment Clinical Findings Pulmonary Status: 1 - Smoking less than 1 pack/day or quit less than 5 years ago Surgical Status: 1 - General Surgery Chest X-Ray: 1 - Chronic Changes or CHF Assessment Score: 3 Patient Assessment Clinical Findings Respiratory Pattern: 0 - RR 12 - 20; Patient only gets breathless with strenuous exercise. Breath Sounds: 3 - Crackles, mild wheezes, coarse bronchial, upper airway noises Cough Effectiveness: 0 - Strong non-productive Sputum Production: 0 - No sputum production Level of Activity: 1 - Ambulatory with assist O2 needed to keep SpO2 greater than or equal to 92%: 1 - Oxygen 1-3 LPM or FiO2 less than 35% Assessment Score: 5 Total Assessment Score: 8 Breath Sounds: Inspiratory and expiratory wheezes bilaterally.. Cough and Sputum: No cough was present.. CXR: Narrative & Impression EXAM XR CHEST 1 VIEW - 01/05/2025 8:37 pm HISTORY Sepsis TECHNIQUE Frontal view of the chest COMPARISON Chest CT 01/05/2025. FINDINGS Stable cardiomediastinal silhouette. No lobar consolidation, pleural effusion or pneumothorax. Large lytic lesion in the posterior right 6th rib. IMPRESSION IMPRESSION 1. No acute cardiopulmonary findings. 2. Large lytic lesion in the posterior right 6th rib. Vital Signs: Resp: 20 (01/09/25 1036) Pulse: 98 (01/09/25 1036) Temp: 36.3 °C (97.3 °F) (01/09/25 1036) BP: 142/66 (01/09/25 1036) SpO2: 95 % (01/09/25 1036) Primary Service: [facility]. Admitting Diagnosis: Cirrhosis of liver (HCC) [K74.60] Pulmonary Diagnosis: Pleura Mass . * Communication - Kalani Robin MD - 01/09/2025 11:42 AM EDT Brief GI Communication Chart reviewed. Overall, patient appears to be having improvement in labs with antibiotic therapy. Additionally, patient has been afebrile without leukocytosis. Case was discussed with advanced endoscopy attending, Dr. Casanova. Given patient's medical comorbidities, new metastatic lesions, and new ascites, it may be reasonable to continue treatment with IV antibiotics and endoscopic gallbladder drainage may not be necessary. Would recommend continued supportive care at this time with antibioticsand pain management as per primary team. Plan to re-evaluate patient 01/10 and if continued improvement, we will hold off endoscopic intervention. This plan was also [facility] 01/08. Please keep NPO after 2400 in case any procedure is required. GI/Hepatology we will continue following. * Communication - Gibran Vital DO - 01/09/2025 11:23 AM EDT Spoke with patients daughter, Gibran, to provide update on plan of care. We discussed tentative GI procedure tomorrow with understanding that it may be deemed not needed if labs continue to improve with medical management alone, the consult with Rad Onc for radiation of rib/scapular lesion, and a discussion with IR regarding Y 90 treatment in setting of metastatic disease. Her daughter expressed understanding and appreciation of the update. * Care Plan - Cheng Norris RN - 01/09/2025 3:39 AM EDT Clinical Goal(s): Patient will be weaned of oxygen requirements as tolerated this shift (01/08/25 2300) Possible barriers to meeting goal(s)/advancing plan of care: Diagnosis, impaired mobility, ambulatory dyspnea Stability of the patient: Moderately stable - low risk of patient condition declining or worsening Summary regarding today's goal(s): Met: Patient was weaned to 1L via NC Recommendations: Continue to wean as able, encourage mobility, encourage early reporting of increasing pain * Communication - Alissa Rosa PA-C - 01/08/2025 12:25 PM EDT Brief Palliative Communication Note Received message from primary service regarding possibility of scheduled pain medications. Patient received morphine 2 mg IV x 1 and 4 mg IV x 2 in past 24 hours. Normal renal function Can start MS IR 7.5 mg Q6H ATC with holding parameters for sedation/somnolence, respiratory depression and patient preference Continue morphine 2 mg IV Q4H PRN moderate pain Continue morphine 4 mg IV Q4H PRN severe pain Please have Naloxone available Cosigned by Michele Miller MD at 01/10/2025 10:46 AM EDT * Respiratory Progress Note - Jaye Penny RRT - 01/07/2025 12:36 PM EDT PDP RE-EVALUATION NOTE - Respiratory Care Services [address] [address] Name: Neha Marks Location: [facility] [place] G303/A Date: 01/07/2025 Time: 12:36 PM Patient Driven Protocol Summary: Re-evaluation . This Treatment Plan and medications will be reviewed by the Primary Care Team for any contraindications. Respiratory Care Treatment Plan Aerosol Therapy Treatment:: Hand Held Nebulizer Tx QID with Duoneb: Unit Dose. to reduce work of breathing and improve pulmonary gas exchange. Additional Aerosolized Treatments: Hand Held Nebulizer Tx PRN with Albuterol Sulfate: Unit dose 0.083%. to reduce work of breathing and improve pulmonary gas exchange. . Pulmonary Volume Expansion Therapy: Incentive Spirometry PRN to prevent or treat alveolar consolidation and atelectasis. . Secretion Management Treatment: Flutter TherapyPRN to enhance mobilization of secretions. .. The patient will be re-evaluated: within 48 hours. The Triage Level is: (Assessment Score = 6 -10) Level 4. Triage Level Definitions: Level 1 Severe Respiratory/Airway Compromise Level 2 Moderate Respiratory/Airway Compromise or high risk for pulmonary complications Level 3 Mild Respiratory/Airway Compromise or moderate risk for pulmonary complications Level 4 Episodic Respiratory/Airway Compromise or low risk for pulmonary complications Level 5 No Respiratory/Airway Compromise Triage 1 Triage 2 Triage 3 Triage 4 Triage 5 greater than 20 16 - 20 11 - 15 6 - 10 0 - 5 Medical Record Assessment Clinical Findings Pulmonary Status: 1 - Smoking less than 1 pack/day or quit less than 5 years ago Surgical Status: 0 - No Surgical History Chest X-Ray: 0 - Clear Assessment Score: 1 Patient Assessment Clinical Findings Respiratory Pattern: 0 - RR 12 - 20; Patient only gets breathless with strenuous exercise. Breath Sounds: 3 - Crackles, mild wheezes, coarse bronchial, upper airway noises Cough Effectiveness: 0 - Strong non-productive Sputum Production 0 - No sputum production Level of Activity: 1 - Ambulatory with assist O2 needed to keep SpO2 greater than or equal to 92%: 1 - Oxygen 1-3 LPM or FiO2 less than 35% Assessment Score: 5 Total Assessment Score: 6 Breath Sounds: Expiratory diminished and wheezes bilaterally.. Cough and Sputum: An effective cough produced no sputum... Vital Signs: Resp: 20 (01/07/25 1139) Pulse: 88 (01/07/25 1139) Temp: 36.8 °C (98.2 °F) (01/07/25 1139) BP: 111/71 (01/07/25 1139) SpO2: 92 % (01/07/25 1139) Primary Service: Med [place]. Admitting Diagnosis: Cirrhosis of liver (HCC) [K74.60] Pulmonary Diagnosis: none documented . * Ancillary Progress Note - Trevon Davey MSW - 01/07/2025 10:53 AM EDT CARE MANAGEMENT - ADULT INITIAL SCREENING [facility] [place] [facility]-[address] [id number] Name: Neha Marks Location: [facility] G303/A Date: 01/07/2025 Time: 10:54 AM Discussed patient with the interdisciplinary care team. This Engineering Assistant performed a chart review and met with Patient at bedside to complete admission screen and assessed needs for transition planning. The congregational care pastor role and services were explained and emotional support was provided. Chief Complaint: transfer of records Prior Living Arrangements What was your living situation prior to admission/observation?: With Spouse (01/07/25 1000) Living Quarters: House (01/07/25 1000) Number of steps to enter living quarters:: 1 (Interior Steps to get to 2nd Floor Bedroom) () Do you have serious difficulty walking or climbing stairs? (5 years old or older): Yes (01/06/251808) History of falling: No (01/07/25 1000) Prior Level of Functioning Describe the patient's ability prior to admission/observation to perform ADLs: Requires assistance (01/06/251808) Requires assistance with: Dressing;Toileting;Bathing;Grooming (01/06/251808) Describe the patient's mobility status prior to admission: Patient requires assistance with ambulation (01/06/251808) Patient uses assistive device: No (01/06/251808) Caregiver Information Emergency Contacts Name Relation Home Work Mobile Zain Marks Spouse [phone] Gibran Colby Adult Child [phone] Other Contacts None on File Risk Stratification/Psychosocial/Care Gaps Risk Stratification Psycho Social / Medical Concerns Identified: Adjustment to illness/injury (01/07/25 1000) Accessed [facility] to connect patients to social care resources: No (01/07/25 1000) OBRA or OPTIONS needed for placement: No (01/07/25 1000) Readmission Risk Score: 15.95 (01/07/25 0800) AM-PAC Score With Stairs : 18 (01/07/25 0900) Prior to Admission Services Services Prior to Admission SHELL TRIM OPERATOR Services (Services received within the last 30 days with exception, Psych within last two years): N/A (01/07/25 1000) [place] Dept[employer] of Aging (PDA) Waiver Program: N/A (01/07/25 1000) SHELL TRIM OPERATOR Transportation (Services received within the last 30 days): Family/Friends Personal Vehicle (01/07/25 1000) Outpatient Engineering Assistant: No care marketing team lead to display SHELL TRIM OPERATOR, Pt resided with her Spouse in a two-story home with 1STE. Pt has interior set of stairs to getto 2nd floor bedroom. Pt was independent with ADLs and Ambulation. No DME use reported. No HH/SNF/IRF service history. Pt's daughter typically provides transportation to appointments. Per Pt, her SPSor Daughter should be able to provide discharge transportation once medically stable. SW notes Pt is currently on 3L O2 while inpatient. Pt is not on O2 at baseline. SW to continue to monitor Pt's medical status throughout this admission for evolving needs, provide psychosocial support, and assist with coordinating disposition planning needs as indicated. UPDATE: Pt discussed at IDT rounds. Per update from service, Pt expected to remain I/P at [facility] through this weekend. Patient/Family Expectations: Return Home w/SPS For further screening information, please refer to the Care Management flow document. * Communication - Erich Figueroa MD - 01/07/2025 9:04 AM EDT POCUS of the abdomen for the purpose of paracentesis was performed with patient permission, different quadrants of the abdomen was reviewed there is minimal ascites no good window and not safe to be performed at this time. GI and General Surgery team were informed at the bedside. * Ancillary Progress Note - Hany eKy, TENNIS PROFESSIONAL - 01/06/2025 6:34 PM EDT PATIENT DRIVEN PROTOCOL - Respiratory Care Services [address] [phone] Name: Nhea Marks Location: [facility] G303/A Date: 01/06/2025 Time: 6:34 PM Patient Driven Protocol Summary: Initial evaluation performed. This Treatment Plan and medications will be reviewed by the Primary Care Team for any contraindications. Respiratory Care Treatment Plan Aerosol Therapy Treatment:: Hand Held Nebulizer Tx QID with Duoneb: Unit Dose. to reduce work of breathing and improve pulmonary gas exchange. Additional Aerosolized Treatments: Hand Held Nebulizer Tx PRN with Albuterol Sulfate: Unit dose 0.083%. to reduce work of breathing and improve pulmonary gas exchange. . Pulmonary Volume Expansion Therapy: Incentive Spirometry BID to prevent or treat alveolar consolidation and atelectasis. . Secretion Management Treatment: Flutter TherapyQID to enhance mobilization of secretions. . The patient will be re-evaluated: within 48 hours. The Triage Level is: (Assessment Score = 6 -10) Level 4. Triage Level Definitions: Level 1 Severe Respiratory/Airway Compromise Level 2 Moderate Respiratory/Airway Compromise or high risk for pulmonary complications Level 3 Mild Respiratory/Airway Compromise or moderate risk for pulmonary complications Level 4 Episodic Respiratory/Airway Compromise or low risk for pulmonary complications Level 5 No Respiratory/Airway Compromise Triage 1 Triage 2 Triage 3 Triage 4 Triage 5 greater than 20 16 - 20 11 - 15 6 - 10 0 - 5 Medical Record Assessment Clinical Findings Pulmonary Status: 1 - Smoking less than 1 pack/day or quit less than 5 years ago Surgical Status: 0 - No Surgical History Chest X-Ray: 0 - Clear Assessment Score: 1 Patient Assessment Clinical Findings Respiratory Pattern: 0 - RR 12 - 20; Patient only gets breathless with strenuous exercise. Breath Sounds: 3 - Crackles, mild wheezes, coarse bronchial, upper airway noises Cough Effectiveness: 0 - Strong non-productive Sputum Production: 0 - No sputum production Level of Activity: 2 - Temporarily non-ambulatory O2 needed to keep SpO2 greater than or equal to 92%: 1 - Oxygen 1-3 LPM or FiO2 less than 35% Assessment Score: 6 Total Assessment Score: 7 Breath Sounds: Inspiratory and expiratory diminished and wheezes bilaterally.. Cough and Sputum: An effective cough produced no sputum... CXR: 01/05-. Vital Signs: Resp: 24 (01/06/251808) Pulse: 93 (01/06/251808) Temp: 37.3 °C (99.1 °F) (01/06/25 180) BP: 149/92 (01/06/251808) SpO2: 91 % (01/06/251808) PFT: Minimal Predicted IC: 747 L. Inspiratory capacity: 500L. Primary Service: Med [place]. Admitting Diagnosis: Cirrhosis of liver (HCC) [K74.60] Pulmonary Diagnosis: current smoker . Prescriptions/Home Medications/Durable Medical Equipment: prn albuterol. Recommended New home medications/durable medical equipment/outpatient pulmonary/sleep referral . * ED [facility] Attendant Note - Jeni Zamora RN - 01/06/2025 4:02 PM EDT Hand-Off - Nurse Communication Note Name: Neha Marks Location: Date: 01/06/2025 Time: 4:03 PM Sending to: GP3 316A Safety Concerns: Fall Risk Allergies: Patient has no known allergies. Code Status: Full Code Isolation: None Isolation flowsheet: Special Needs: Isolation [10] Special Needs comments: c diff r/o 01/06/25 Attention to: Maritza Camarillo RN Report from: Jeni Zamora RN Phone extension: [phone] Patient arriving via: Stretcher Reason for SBAR handoff: Admission Situation/Background Admission date: 01/06/2025 Patient Service: Med [place] [[id number]] Attending Provider: Taran Hines MD Admitting diagnosis: Cirrhosis of liver (HCC) Chief Complaint: transfer of records Comes to the [facility] ED for evaluation of fever and chest pain. Neha comes in for her evaluation of right-sided chest pain along with ongoing right shoulder painwhich has been making her movements query painful. She reports that chest pain started a few days ago, nonradiating, on the right side, 10/10-improvedwith fentanyl/morphine prior to and on arrival. She reports to be compliant to her medication and recently started on Coreg for her high blood pressure which she had not been able to take at home prior to her arrival. She does not have any subjective fevers, afebrile on arrival. She is also compliant to her C diff medications and reports that the symptoms are getting better. She however feels extremely weak and short of breaths however not dyspneic on arrival. She reports that she had 6 bowel movements yesterday. Also notes that she has had persistently frequent loose bowel movements that are foul-smelling. PLAN PER PALLIATIVE: Neha Marks is a/an 64 year old female referred for consultation to Palliative Medicine with the primary diagnosis of: Cancer: Metastatic Liver Cancer with pathologic fracture of 6th rib Secondary Diagnoses are generalized anxiety disorder portal hypertension, mood disorder, major depressive disorder, hypertension C. Difficile Cancer-related pain - May continue Morphine IV pushes of 2-4 mg PRN for pain Nausea - May continue zofran 4 mg IV PRN for nausea Goals of Care - Currently pursuing disease directed therapy, pending HIDA scan results and possible surgical options Palliative Care encounter - Introduced our Palliative Medicine team. Reviewed palliative care involvement for symptom assessment and management related to serious illness or related to disease-directed treatment. We discussedour involvement as support, coordination, advanced care planning discussion, and advance directives discussion. RECOMMENDATIONS PER ONCOLOGY: Consult Radiation Oncology for possible palliative treatment of 6th rib mass Consult IR for Y-( RFA Will need follow up appt outpatient with Dr Tunde Plunkett 1 week post discharge. RECOMMENDATIONS/PLAN PER GASTROENTEROLOGY: - Recommend diagnostic paracentesis - particularly in the context of new ascites and abdominal painand to rule out malignant ascites - Agree with oncology consult - if decision made to start systemic therapy - she will need an EGD prior to initiation of systemic therapy - Acute cholecystitis management per General Surgery - Daily MELD 3.0 labs - Remainder of care per primary; hepatology to continue to follow DIFFERENTIAL AND PLAN PER MEDICINE: Acute hypoxic respiratory failure (2-3 L on mentioned) Cholelithiasis Right 6th rib pathologic fracture, Hepatic and lung nodules Elevated transaminase level Right-sided Chest pain, right shoulder pain Ascites History of cirrhosis and hepatocellular cancer Sepsis on arrival to ED [facility] Continue telemetry monitoring Patient currently afebrile; monitor for fevers Respiratory hygiene Duonebs Q6H and PRN albuterol Flutter and spirometry Consider Steroids if persistently requiring O2 supplement (reports to have Hx of emphysema and Hx of smoking) Consider Pulm consult if persistently requiring O2 Wean O2 as able; goal 88-92% Monitor I&Os Procal and lactate WNL MELD labs completed --score of 11 AFP >10k MRSA negative LD mildly elevated, uric acid WNL Blood culture prelim (-) Oncology, Hepatology, Palliative Medicine consults placed; appreciate recommendations Hepatology recommending Dx paracentesis Spoke with procedure team, will complete bedside US to determine if they can complete para General Surgery following, recommending HIDA scan --positive for cholecystitis Will determine cholecystectomy vs cholecystomy --per Gen Surg recs Right shoulder XR showing lytic lesion concerning for METs Pain control PRN Start IV Zosyn for (+) acute cholecystitis on imaging Continue PO Fidaxomicin for C.diff PT/OT Pt can stand and pivot to bedside with assist of 2 Problem list: Principal Problem: Acute hypoxic respiratory failure (HCC) Active Problems: Generalized anxiety disorder Other cirrhosis of liver (HCC) Mood disorder (HCC) Portal hypertension (HCC) Thrombocytopenia (HCC) Major depressive disorder with single episode HTN, goal below 130/80 Elevated transaminase level Cholelithiasis HCC (hepatocellular carcinoma) (HCC) 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 * Level of Care: Med Surg [3] Assessment Vital Signs: BP: 137/56 (01/06/25 1500) Temp: 37.1 °C (98.8 °F) (01/06/25 1000) Pulse: 94 (01/06/25 1400) Resp: 16 (01/06/25 1100) SpO2: 92 % (01/06/25 1500) Weight: 77.1 kg (170 lb) (01/06/25 0208) Fall Scale: Neurological: [place] Coma Scale - For patients greater than two years old Eyes Open: Spontaneous (01/06/25 020) Best Verbal Response: Verbally appropriate for age (01/06/25 0208) Best Motor Response: Obeys commands appropriate for age (01/06/25 0208) Coma Score: 15 (01/06/25 020) Additional Neurological Information: n/a Respiratory: Respiratory WNL: X - Exceptions to WNL as documented below (01/06/25207) Cough: Non-Productive;Congested (01/06/25207) Respiratory Depth/Rhythm: Shallow (01/06/25207) Dyspnea Occurence: At Rest (01/06/25207) Respiratory Effort: Labored (01/06/25207) Oxygen therapy/ Mechanical vent Supplemental O2 Delivery: Nasal Cannula (01/06/25 1400) O2 flow rate: 3 L/MIN (01/06/25 1400) O2 flow rate: 3 L/MIN (01/06/25 1400) Additional Respiratory Information: n/a Cardiac: Cardiovascular WNL: WNL - within normal limits (01/06/25207) Extremities: +Sensation;Right;Left;Upper;Lower;Warm (01/06/25207) Pulses Right: Palpable;Radial + (01/06/25207) Pulses Left: Palpable;Radial + (01/06/25207) Capillary Refill: 1-2 seconds (01/06/25207) Additional Cardiac Information: n/a GI/: Urine Description: Clear;Concentrated (01/06/25 0500) Additional GI/ Information: n/a Integumentary: Additional Integumentary Information: n/a C-Diff: Restraints: No orders of the defined types were placed in this encounter. Lines: Peripheral Line Left Antecubital 18 Gauge (Active) Number of days: 1 Labs: Labs This Encounter PT INR - Abnormal; Notable for the following components: Result Value Ref Range Prothrombin Time 16.9 11.6 - 15.2 seconds INR 1.4 0.8 - 1.2 All other components within normal limits Narrative: Warfarin Therapy INR: 2.0-3.0 conventional anticoagulation INR: 2.5-3.5 high intensity anticoagulation COMPREHENSIVE METABOLIC PANEL - Abnormal; Notable for the following components: POTASSIUM 3.4 3.5 - 5.1 mmol/L GLUCOSE 150 70 - 120 mg/dL Albumin 3.7 3.8 - 5.0 g/dL AST 127 10 - 35 U/L Alkaline Phosphatase 577 35 - 130 U/L ALT 44 10 - 35 U/L All other components within normal limits CBC - Abnormal; Notable for the following components: HGB 10.6 12.0 - 15.3 g/dL HCT 34.3 36.0 - 45.2 % PLT 70 140 - 400 K/uL All other components within normal limits ALPHA-FETOPROTEIN TUMOR MARKER - Abnormal; Notable for the following components: Alpha-Fetoprotein Tumor Marker 10,274.0 0.0 - 8.3 ng/mL All other components within normal limits LD - Abnormal; Notable for the following components: LD 266 <=250 U/L All other components within normal limits MAGNESIUM - Normal PHOSPHORUS - Normal PROCALCITONIN - Normal Narrative: Less than 0.5 ng/mL: Low risk for progression to sepsis. Review patients condition for localized infections. 0.5 to 2.0 ng/mL: Intermediate risk for progresion to sepsis. Review underlying conditions. Recommend repeat PCT after 6 hours has elapsed. Greater than 2.0 ng/mL: high risk for progression to sepsis unless other causes are known. URIC ACID - Normal Diet: Orders Placed This Encounter Procedures Heart Healthy Diet : Sodium: 2 gm --- Fluid Restriction (ml): None Additional Diet Information: n/a Intake and Output: Intake/Output Summary (Last 24 hours) at 01/06/2025 1603 Last data filed at 01/06/2025 1022 Gross per 24 hour Intake 492.3 ml Output -- Net 492.3 ml Patient Belongings and Home Medications Recommendations/Follow up Goals/Plan of Care: see note Consults not completed: n/a Anticipated tests/studies/procedures: see note Medication Reconcilliation completed for this Admission? Yes * Progress Notes - Non-Billable - Jesus Bob PA-C - 01/06/2025 7:27 AM EDT Images from the original note were not included. [facility] 29/X INTERVAL HISTORY: Patient seen at bedside. Afebrile. Continues to endorse RUQ discomfort. Patient appears slightly diaphoretic and ill appearing. HIDA scan shows acute cholecystitis. Awaiting recommendations from General Surgery. Hepatology, Oncology and Palliative Medicine following. Patient started on IV Zosyn foracute cholecystitis. Continues with PO abx for C.diff infection. Objective Physical Exam Most Recent Vital Signs: BP: 154 mmHg/61 mmHg (01/06/25 0600) Pulse: 94 (01/06/25 0600) Resp: 20 (01/06/25 0500) Temp: 36.5 C (01/06/25 0208) Temp Summary: Temp Min: 36.5 °C (97.7 °F) Max: 36.5 °C (97.7 °F) SpO2: 94 % (01/06/25 0600) O2 flow rate: 3 L/MIN (01/06/25 06) Supplemental O2 Delivery: Nasal Cannula (01/06/25 06) Constitutional: no acute distress, (+) ill appearing HEENT: normal: normocephalic, atraumatic; no masses, tenderness, or adenopathy CV: normal heart sounds, normal rate, normal rhythm, no murmur Chest: normal respiratory effort, breath sounds normal Abdomen: abdominal distention and firmness Extremities: no edema, no cyanosis Skin: warm, diaphoretic: Neuro: alert, oriented to person, place, and time Psych: normal mood and affect STUDIES: Encounter Orders Labs and other studies reviewed with pertinent findings noted below: MELD 3.0: 11 at 01/06/2025 5:59 AM Calculated from: Serum Creatinine: 0.5 mg/dL (Using min of 1 mg/dL) at 01/06/2025 5:59 AM Serum Sodium: 141 mmol/L (Using max of 137 mmol/L) at 01/06/2025 5:59 AM Total Bilirubin: 1.2 mg/dL at 01/06/2025 5:59 AM Serum Albumin: 3.7 g/dL (Using max of 3.5 g/dL) at 01/06/2025 5:59 AM INR(ratio): 1.4 at 01/06/2025 5:59 AM Age at listing (hypothetical): 64 years Sex: Female at 01/06/2025 5:59 AM Latest Reference Range & Units 01/06/25 00:56 URINALYSIS, REFLEX TO CULTURE (CUP ONLY) Rpt URINALYSIS, REFLEX TO CULTURE Rpt ! Color, Urine Light Yellow, Yellow, Dark Yellow Yellow Clarity, Urine Clear Clear Glucose, Urine Negative mg/dL Negative Bilirubin, Urine Negative Negative Ketone, Urine Negative mg/dL Negative Specific [place], Urine 1.003 - 1.030 1.015 Blood, Urine Negative Trace ! pH, Urine 5.0 - 7.5 Units 6.0 Protein, Urine Negative mg/dL Negative Urobilinogen, Urine 0.2, 1.0 mg/dL 0.2 Nitrite, Urine Negative Negative Esterase, Urine Negative Negative Bacteria, Urine 0 - 25 /HPF 0-25 WBC, Urine 0 - 2 /HPF 0-2 RBC, Urine 0 - 2 /HPF 3-5 ! URINALYSIS, REFLEX TO CULTURE (NOT FOR NEUTROPENIC PATIENTS) Rpt ! Latest Reference Range & Units 01/06/25 05:59 SODIUM 135 - 146 mmol/L 141 POTASSIUM 3.5 - 5.1 mmol/L 3.4 (L) CHLORIDE 98 - 107 mmol/L 106 CO2 22 - 32 mmol/L 23 BUN 6 - 20 mg/dL 8 CREATININE 0.5 - 1.0 mg/dL 0.5 EGFR >=60 mL/min >90 ANION GAP 7 - 15 mmol/L 12 GLUCOSE 70 - 120 mg/dL 150 (H) CALCIUM 8.4 - 10.2 mg/dL 8.7 Magnesium 1.5 - 2.6 mg/dL 1.9 Phosphorus 2.5 - 4.8 mg/dL 2.9 Protein 6.0 - 8.3 g/dL 6.7 LD <=250 U/L 266 (H) Uric Acid 2.4 - 5.7 mg/dL 2.5 INR 0.8 - 1.2 1.4 (H) Prothrombin Time 11.6 - 15.2 seconds 16.9 (H) CBC Rpt ! WBC 4.00 - 10.80 K/uL 6.40 RBC 3.85 - 5.15 M/uL 3.65 HGB 12.0 - 15.3 g/dL 10.6 (L) HCT 36.0 - 45.2 % 34.3 (L) MCV 81.5 - 97.5 fL 94.0 MCH 27.0 - 34.0 pg 29.0 MCHC 32.0 - 36.0 g/dL 30.9 RDW 11.5 - 15.5 % 16.0 PLT 140 - 400 K/uL 70 (L) MPV 6.6 - 11.1 fL 12.7 Procalcitonin <0.10 ng/mL 0.07 Albumin 3.8 - 5.0 g/dL 3.7 (L) AST 10 - 35 U/L 127 (H) ALT 10 - 35 U/L 44 (H) Alkaline Phosphatase 35 - 130 U/L 577 (H) Bilirubin, Total <=1.2 mg/dL 1.2 [facility] Reference Range & Units 01/06/25 05:59 SODIUM 135 - 146 mmol/L 141 POTASSIUM 3.5 - 5.1 mmol/L 3.4 (L) CHLORIDE 98 - 107 mmol/L 106 CO2 22 - 32 mmol/L 23 BUN 6 - 20 mg/dL 8 CREATININE 0.5 - 1.0 mg/dL 0.5 EGFR >=60 mL/min >90 ANION GAP 7 - 15 mmol/L 12 GLUCOSE 70 - 120 mg/dL 150 (H) CALCIUM 8.4 - 10.2 mg/dL 8.7 Magnesium 1.5 - 2.6 mg/dL 1.9 Phosphorus 2.5 - 4.8 mg/dL 2.9 Protein 6.0 - 8.3 g/dL 6.7 LD <=250 U/L 266 (H) Uric Acid 2.4 - 5.7 mg/dL 2.5 INR 0.8 - 1.2 1.4 (H) Prothrombin Time 11.6 - 15.2 seconds 16.9 (H) CBC Rpt ! WBC 4.00 - 10.80 K/uL 6.40 RBC 3.85 - 5.15 M/uL 3.65 HGB 12.0 - 15.3 g/dL 10.6 (L) HCT 36.0 - 45.2 % 34.3 (L) MCV 81.5 - 97.5 fL 94.0 MCH 27.0 - 34.0 pg 29.0 MCHC 32.0 - 36.0 g/dL 30.9 RDW 11.5 - 15.5 % 16.0 PLT 140 - 400 K/uL 70 (L) MPV 6.6 - 11.1 fL 12.7 Procalcitonin <0.10 ng/mL 0.07 Albumin 3.8 - 5.0 g/dL 3.7 (L) AST 10 - 35 U/L 127 (H) ALT 10 - 35 U/L 44 (H) Alkaline Phosphatase 35 - 130 U/L 577 (H) Bilirubin, Total <=1.2 mg/dL 1.2 CT CHEST --01/05/25 IMPRESSION: 1. Right posterior pleural-based mass with erosive/destructive changes of the right posterior 6th rib highly suspicious for neoplastic disease. 2. Right scapular lesion highly suspicious for bony metastasis. 3. Ground-glass 3 mm nodule left lung anteriorly nonspecific. 4. 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 CXR --01/05/25 IMPRESSION 1. No acute cardiopulmonary findings. 2. Large lytic lesion in the posterior right 6th rib. CT AB/PELVIS --01/05/25 IMPRESSION: 1. Extensive cirrhotic changes of the liver with 1.3 cm nodular density posterior exophytic right lobe may represent regenerating nodule but is nonspecific. MRI can further evaluate as clinically indicated. 2. Portal venous hypertension changes 3. Moderate abdominal and pelvic ascites 4. Luz hepatic adenopathy with nodes up to 5 cm in diameter. 5. Calcified gallstone with some pericholecystic fat ill distinctness which is nonspecific in the setting of ascites.Some linear calcification within the gallbladder wall is also suspected. If cholecystitis is suspected clinically ultrasound can further evaluate. ABD US LIMITED --01/06/25 IMPRESSION 1. Cholelithiasis and borderline increased gallbladder wall thickness. No pericholecystic fluid. Negative sonographic sign. Findings are equivocal for acute cholecystitis and may be related to cirrhosis however consider correlation with HIDA scan if there is persistent concern for acute cholecystitis. 2. Cirrhosis. 2.4 cm hypoechoic mass in the right hepatic lobe consistent with known LI-RADS 5 lesion. Assessment and Plan IMPRESSION : Principal Problem: Acute hypoxic respiratory failure (HCC) Active Problems: Generalized anxiety disorder Other cirrhosis of liver (HCC) Mood disorder (HCC) Portal hypertension (HCC) Thrombocytopenia (HCC) Major depressive disorder with single episode HTN, goal below 130/80 Elevated transaminase level Cholelithiasis Resolved Problems: * No resolved hospital problems. * DIFFERENTIAL AND PLAN: Acute hypoxic respiratory failure (2-3 L on mentioned) Cholelithiasis Right 6th rib pathologic fracture, Hepatic and lung nodules Elevated transaminase level Right-sided Chest pain, right shoulder pain Ascites History of cirrhosis and hepatocellular cancer Sepsis on arrival to ED [facility] Continue telemetry monitoring Patient currently afebrile; monitor for fevers Respiratory hygiene Duonebs Q6H and PRN albuterol Flutter and spirometry Consider Steroids if persistently requiring O2 supplement (reports to have Hx of emphysema and Hx of smoking) Consider Pulm consult if persistently requiring O2 Wean O2 as able; goal 88-92% Monitor I&Os Procal and lactate WNL MELD labs completed --score of 11 AFP >10k MRSA negative LD mildly elevated, uric acid WNL Blood culture prelim (-) Oncology, Hepatology, Palliative Medicine consults placed; appreciate recommendations Hepatology recommending Dx paracentesis Spoke with procedure team, will complete bedside US to determine if they can complete para General Surgery following, recommending HIDA scan --positive for cholecystitis Will determine cholecystectomy vs cholecystomy --per Gen Surg recs Right shoulder XR showing lytic lesion concerning for METs Pain control PRN Start IV Zosyn for (+) acute cholecystitis on imaging Continue PO Fidaxomicin for C.diff PT/OT Chronic: GINA, Mood disorder, Depressive disorder --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 * Medical Necessity - Gaby Dumont RN - 01/06/2025 6:09 AM EDT AdmissionCare Guideline: Gallbladder / Bile Duct Inflammation or Stone, Inpatient Based on the indications selected for the patient, the bed status of Inpatient was determined to beMET The following indications were selected as present at the time of evaluation of the patient: - Clinical Indications for Admission to Inpatient Care - Admission is indicated for 1 or more of the following: - Calculus or obstruction of gallbladder or bile duct and 1 or more of the following: - Severe pain requiring acute inpatient management, as indicated by 1 or more of the following: - Suspected new or deteriorating disease process as etiology (eg, new site of metastatic disease) requiring inpatient evaluation and treatment (eg, urgent radiation therapy) Additional Information: Imaging today shows cholelithiasis and some pericholecystic fluid, althoughthis is non specific in there setting of ascites. She has no leukocytosis. She is moderately tenderto palpation in the RUQ. She is actively undergoing treatment for c diff infection with fidaxomicin. It is hard differentiate cancer related pain from possible cholecystitis related pain. Patient does not appear toxic at this time. In the setting of cirrhosis with ascites and HCC, patient is an extremely high risk surgical candidate. If patient were to be found to have acute cholecystitis, it is unlikely that surgical intervention would be recommended. AdmissionCare documentation entered by: Gaby Dumont [facility], 28th edition, Copyright © 2023 [facility] [employer] [facility] All Rights Reserved. [id number] Solely for purpose of utilization review and payment; not a diagnostic tool documented in this encounter Plan of Treatment Upcoming Encounters Date Type Department Care Team (Late st Contact Info) Description 01/17/2025 2:30 PM EDT Telemedicine Orthopaedics, [facility] [address] [place] [address] Sg Storm PA-C [address] [place] [address] 02/10/2025 1:00 PM EDT Office Visit Hematology/Oncology [facility] [address] [place] [id number] Tunde Plunkett MD [address] [place] [address] 02/25/2025 11:00 AM EDT Office Visit [address] [phone] Kalani Gonzales MD [address] [place] [phone] Pending Results Name Type Priority Associated Diagnoses Date /Time IR BIOPSY Medical Imaging Routine 9:42 AM EDT Scheduled Procedures Name Priority Associated Diagnoses Date/Ti me COLONOSCOPY FLEXIBLE PROXIMA L DIAGNOSTIC Recall Personal history of colonic polyps Health Maintenance Due Date Last Done Comments COVID-19 Vaccine (#1) 1964 Pneumococcal Vaccine: 50+ Years (1 of 2 - PCV) 1978 Zoster Vaccines (1 of 2) 1978 Mammogram 1999 Cologuard 2004 Fecal Occult Blood Test 2004 Sigmoidoscopy 2004 Hepatitis B Vaccine (1 of 3 - Risk 3-dose series) 2019 Depression Monitoring 06/25/2023 06/25/2022 Colonoscopy 05/06/2024 05/06/2019, 04/19, 10/31/2014, Additional history exists Colorectal Cancer Screening 05/06/2024 Influenza Vaccine (FLU shot) (#1) 2024 Diabetes Screening 01/15/2028 01/14/2025, 0 01/13/2025, 01/12/2025, Additional history exists Lipid Panel 08/23/2029 08/23/2024, 05/22, 08/11/2020, Additional history exists DTap/Tdap Vaccines (3 - Td or Tdap) 04/28/2033 04/28/2023, 07/03/2009 Cervical Cancer Screening Discontinued Pap Smear Discontinued 09/11/2009, 09/11/2009 RETIRED - COLONOSCOPY-EVERY 5 YRS AGES 18-100 Discontinued 05/06/2019, 05/06/2019, 10/31/2014, Additional history exists HPV (Gardasil) Vaccine Aged Out No lo nger eligible based on patient's age to complete this topic HPV/Co-Test Discontinued MENINGOCOCCAL (MENACTRA/MENVEO) Aged Out No longer eligible based on patient's age to complete this topic Meningitis B Vaccine (Bexsero/Trumemba) Aged Out No longer eligible based on patient's age to complete this topic documented as of this encounter Medical Devices Not on filedocumented as of this encounter Procedures Procedure Name Priority Date/Time Associated Diagnosis Comments HEPATIC FUNCTION PANEL Routine 01/14/2025 6:54 AM EDT BASIC METABOLIC PANEL Routine 01/14/2025 6:54 AM EDT PT INR Routine 01/14/2025 6:54 AM EDT CBC Routine 01/14/2025 6:54 AM EDT HEPATIC FUNCTION PANEL Routine 01/13/2025 6:43 AM EDT BASIC METABOLIC PANEL Routine 01/13/2025 6:43 AM EDT PT INR Routine 01/13/2025 6:43 AM EDT CBC Routine 01/13/2025 6:43 AM EDT IR BIOPSY Routine 01/12/2025 9:42 AM EDT Procedure Note - Jay Kincaid MD / Dov Dalton DO - 01/12/2025 9:42 AM EDTThis note is in progress. PROCEDURE: CT-guided percutaneous right scapular lesion biopsy. INDICATION: 64 year old female with a history of HCC presenting with newosseous lesions in the right scapula and 6th rib concerning for osseousmetastasis requiring biopsy of the scapular lesion ATTENDING (OPERATING PHYSICIAN): Dr Jay Kincaid SCRUBBED RESIDENT (OPERATING PHYSICIAN): Dr Dov Dalton SUPPORTING PROVIDER (RATTLESNAKE FARMER): Ruth MKCEON. CONSENT: After a detailed discussion of the procedure, risks, benefits andalternative treatment options, informed consent was obtained. TIME OUT: A time out procedure was performed. The patient's identificationwas verified. Informed consent with agreement of procedure, site andposition was obtained. All necessary equipment was available prior toprocedure. CONTRAST: No contrast administered. COMPLICATIONS: None. ANESTHESIA: Local lidocaine. IV Versed. IV Fentanyl. SEDATION TIME: Start to end: 9:06 - 9:34 am. Qualified nurse sedationobserver Cata Pineda RN. MEDICATIONS: See MAR PROCEDURE DESCRIPTION: After survey CT images of the right upper chestwere performed, the right scapular lesion was studied. Then the accesssite was selected and prepped and draped in the usual sterile fashion.The skin and deep soft tissues were anesthetized and under CT guidance a17 gauge coaxial needle was advanced just within the superior margin.After satisfactory positioning was confirmed, the inner stylet was removedand four 18 gauge core biopsy specimens were obtained and placed in a vialof sterile saline. The on-site medical claims processor deemed the samples to beadequate. All specimen samples were given to the medical claims processor. The cannulawas then removed, hemostasis was achieved and the site was dressed. Thepatient tolerated the procedure well. The procedure was performed under the personal supervision of Dr. Dodge who was present for the humphrey and critical portions of the procedureand immediately available for the entire procedure. FINDINGS: Limited CT scan images for the purposes of biopsy demonstrate a rightscapular lesion. Further imaging shows the coaxial needle is seen withinthe margin of the target with more than adequate distance for the biopsythrows. No immediate complication on post biopsy imaging. IMPRESSION IMPRESSION: Successful CT-guided percutaneous right scapular lesion biopsy. PLAN: Ordering clinician to follow-up results with patient. CYTOLOGY Routine 01/12/2025 9:26 AM EDT HEPATIC FUNCTION PANEL Routine 01/12/2025 5:52 AM EDT BASIC METABOLIC PANEL Routine 01/12/2025 5:52 AM EDT PT INR Routine 01/12/2025 5:52 AM EDT CBC Routine 01/12/2025 5:52 AM EDT MRI BRAIN W WO CONTRAST Routine 01/12/2025 2:20 AM EDT MRV HEAD W WO CONTRAST Routine 01/12/2025 2:19 AM EDT BASIC METABOLIC PANEL STAT 01/11/2025 6:33 PM EDT HEPATIC FUNCTION PANEL Routine 01/11/2025 6:39 AM EDT BASIC METABOLIC PANEL Routine 01/11/2025 6:39 AM EDT PT INR Routine 01/11/2025 6:39 AM EDT ALPHA-FETOPROTEIN TUMOR MARKER Routine 01/11/2025 6:39 AM EDT CBC Routine 01/11/2025 6:[address] HEAD/BRAIN W CONTRAST Routine 01/10/2025 10:32 PM EDT HEPATIC FUNCTION PANEL Routine 01/10/2025 6:02 AM EDT BASIC METABOLIC PANEL Routine 01/10/2025 6:02 AM EDT PT INR Routine 01/10/2025 6:02 AM EDT CBC Routine 01/10/2025 6:02 AM EDT TX ECG ROUTINE ECG W/LEAST 12 LDS I&R ONLY STAT 01/09/2025 9:35 AM EDT Chest pain HEPATIC FUNCTION PANEL Routine 01/09/2025 4:59 AM EDT BASIC METABOLIC PANEL Routine 01/09/2025 4:59 AM EDT PT INR Routine 01/09/2025 4:59 AM EDT CBC Routine 01/09/2025 4:58 AM EDT HEPATIC FUNCTION PANEL Routine 01/08/2025 5:52 AM EDT BASIC METABOLIC PANEL Routine 01/08/2025 5:52 AM EDT PT INR Routine 01/08/2025 5:52 AM EDT CBC Routine 01/08/2025 5:52 AM EDT COMPREHENSIVE METABOLIC PANEL Routine 01/07/2025 8:48 AM EDT PT INR Routine 01/07/2025 8:48 AM EDT CBC Routine 01/07/2025 8:48 AM EDT XR SHOULDER, 2 OR MORE VIEWS STAT 01/06/2025 9:59 AM EDT Disorder of bone, unspecified NM HEPATOBILIARY SYSTEM Routine 01/06/2025 9:26 AM EDT Malignant neoplasm of liver, not specified as primary or secondary (HCC) PROCALCITONIN Add-on 01/06/2025 5:59 AM EDT COMPREHENSIVE METABOLIC PANEL Routine 01/06/2025 5:59 AM EDT PT INR Routine 01/06/2025 5:59 AM EDT PHOSPHORUS Routine 01/06/2025 5:59 AM EDT LD Add-on 01/06/2025 5:59 AM EDT CBC Routine 01/06/2025 5:59 AM EDT URIC ACID Add-on 01/06/2025 5:59 AM EDT MAGNESIUM Routine 01/06/2025 5:59 AM EDT US ABDOMEN LIMITED STAT 01/06/2025 3:24 AM EDT ALPHA-FETOPROTEIN TUMOR MARKER Add-on 01/05/2025 8:26 PM EDT documented in this encounter Results * (ABNORMAL) CBC (01/14/2025 6:54 AM EDT) WBC 4.47 4.00 - 10.80 K/uL 01/14/2025 7:25 AM EDT LABORATORY [facility] RBC 3.44 3.85 - 5.15 M/uL 01/14/2025 7:25 AM EDT LAB[facility]ATORY [facility] HGB 10.0(L) 12.0 - 15.3 g/dL 01/14/2025 7:25 AM EDT LABORATORY [facility] HCT 32.3(L) 36.0 - 45.2 % 01/14/2025 7:25 AM EDT LABORATORY [facility] MCV 93.9 81.5 - 97.5 fL 01/14/2025 7:25 AM EDT LABORATORY [facility] MCH 29.1 27.0 - 34.0 pg 01/14/2025 7:25 AM EDT LABORATORY [facility] MCHC 31.0 32.0 - 36.0 g/dL 01/14/2025 7:25 AM EDT LAB[facility]ATORY [facility] RDW 16.2 11.5 - 15.5 % 01/14/2025 7:25 AM EDT LABORATORY [facility] PLT 76(L) 140 - 400 K/uL 01/14/2025 7:25 AM EDT LABORATORY [facility] MPV 13.0 6.6 - 11.1 fL 01/14/2025 7:25 AM EDT LABORATORY [facility] nRBCs 0 <=0 /100 WBCs 01/14/2025 7:25 AM EDT LAB[facility]ATORY [facility] Blood Venous blood specimen / Unknown Venipuncture / Unknown 01/14/2025 6:54 AM EDT 01/14/2025 7:15 AM EDT us Cheng Mcnally DO LAB BLOOD ORDERABLES Final Resu lt LABORATORY [facility] [address] [place] [address] * (ABNORMAL) HEPATIC FUNCTION PANEL (01/14/2025 6:54 AM EDT) Pathologist [facility] Albumin 3.3(L) 3.8 - 5.0 g/dL 01/14/2025 7:44 AM EDT LABORATORY [facility] AST 58(H) 10 - 35 U/L 01/14/2025 7:44 AM EDT LABORATORY [facility] Alkaline Phosphatase 472(H) 35 - 130 U/L 01/14/2025 7:44 AM EDT LABORATORY [facility] ALT 36(H) 10 - 35 U/L 01/14/2025 7:44 AM EDT LABORATORY [facility] Bilirubin, Total 0.7 <=1.2 mg/dL 01/14/2025 7:44 AM EDT LABORATORY [facility] Bilirubin, Direct 0.4(H) 0.0 - 0.3 mg/dL 01/14/2025 7:44 AM EDT LAB[facility]ATORY [facility] Protein 6.3 6.0 - 8.3 g/dL 01/14/2025 7:44 AM EDT LABORATORY [facility] Blood Venous blood specimen / Unknown Venipuncture / Unknown 01/14/2025 6:54 AM EDT 01/14/2025 7:15 AM EDT us Cheng Mcnally DO LAB BLOOD ORDERABLES Final Resu lt LABORATORY [facility] [address] [place] [address] * (ABNORMAL) BASIC METABOLIC PANEL (01/14/2025 6:54 AM EDT) BUN 9 6 - 20 mg/dL 01/14/2025 7:44 AM EDT LAB[facility]ATORY [facility] CREATININE 0.6 0.5 - 1.0 mg/dL 01/14/2025 7:44 AM EDT LABORATORY [facility] EGFR >90 >=60 mL/min 01/14/2025 7:44 AM EDT LABORATORY [facility] Comment:eGFR is calculated b ased on the CKD-EPI 2020 equation. SODIUM 140 135 - 146 mmol/L 01/14/2025 7:44 AM EDT LABORATORY [facility] POTASSIUM 3.7 3.5 - 5.1 mmol/L 01/14/2025 7:44 AM EDT LABORATORY [facility] CHLORIDE 102 98 - 107 mmol/L 01/14/2025 7:44 AM EDT LABORATORY [facility] CO2 26 22 - 32 mmol/L 01/14/2025 7:44 AM EDT LABORATORY [facility] ANION GAP 12 7 - 15 mmol/L 01/14/2025 7:44 AM EDT LABORATORY [facility] GLUCOSE 129(H) 70 - 120 mg/dL 01/14/2025 7:44 AM EDT LABORATORY [facility] CALCIUM 9.1 8.4 - 10.2 mg/dL 01/14/2025 7:44 AM EDT LABORATORY [facility] Blood Venous blood specimen / Unknown Venipuncture / Unknown 01/14/2025 6:54 AM EDT 01/14/2025 7:15 AM EDT Cheng Mcnally DO LAB BLOOD ORDERABLES Final Resu lt Performing Organization Address [facility] de Phone Number LABORATORY [facility] [address] [place] [address] * (ABNORMAL) PT INR (01/14/2025 6:54 AM EDT) Prothrombin Time 17.8(H) 11.6 - 15.2 seconds 01/14/2025 8:08 AM EDT LABORATORY [facility] INR 1.5(H) 0.8 - 1.2 01/14/2025 8:08 AM EDT LABORATORY [facility] Blood Venous blood specimen / Unknown Venipuncture / Unknown 01/14/2025 6:54 AM EDT 01/14/2025 7:15 AM EDT Narrative LABORATORY [facility] - 01/14/2025 8:08 AM EDT Warfarin Therapy INR: 2.0-3.0 conventional anticoagulation INR: 2.5-3.5 high intensity anticoagulation us Cheng Mcnally DO LAB BLOOD ORDERABLES Final Resu lt Performing Organization Address [facility] de Phone Number LABORATORY [facility] [address] [place] [address] * (ABNORMAL) CBC (01/13/2025 6:43 AM EDT) WBC 5.21 4.00 - 10.80 K/uL 01/13/2025 7:10 AM EDT LABORATORY [facility] RBC 3.51 3.85 - 5.15 M/uL 01/13/2025 7:10 AM EDT LABORATORY GM HGB 10.1(L) 12.0 - 15.3 g/dL 01/13/2025 7:10 AM EDT LABORATORY GM HCT 33.0(L) 36.0 - 45.2 % 01/13/2025 7:10 AM EDT LABORATORY GM MCV 94.0 81.5 - 97.5 fL 01/13/2025 7:10 AM EDT LABORATORY [facility] MCH 28.8 27.0 - 34.0 pg 01/13/2025 7:10 AM EDT LABORATORY [facility] MCHC 30.6 32.0 - 36.0 g/dL 01/13/2025 7:10 AM EDT LABORATORY [facility] RDW 16.3 11.5 - 15.5 % 01/13/2025 7:10 AM EDT LABORATORY [facility] PLT 81(L) 140 - 400 K/uL 01/13/2025 7:10 AM EDT LABORATORY [facility] MPV 12.9 6.6 - 11.1 fL 01/13/2025 7:10 AM EDT LABORATORY [facility] nRBCs 0 <=0 /100 WBCs 01/13/2025 7:10 AM EDT LAB[facility]ATORY [facility] Blood Venous blood specimen / Unknown Venipuncture / Unknown 01/13/2025 6:43 AM EDT 01/13/2025 7:00 AM EDT us Cheng Mcnally DO LAB BLOOD ORDERABLES Final Resu lt LABORATORY GM [address] [place] [address] * (ABNORMAL) HEPATIC FUNCTION PANEL (01/13/2025 6:43 AM EDT) Albumin 3.3(L) 3.8 - 5.0 g/dL 01/13/2025 7:31 AM EDT LABORATORY [facility] AST 61(H) 10 - 35 U/L 01/13/2025 7:31 AM EDT LABORATORY [facility] Alkaline Phosphatase 501(H) 35 - 130 U/L 01/13/2025 7:31 AM EDT LABORATORY [facility] ALT 35 10 - 35 U/L 01/13/2025 7:31 AM EDT LABORATORY [facility] Bilirubin, Total 0.7 <=1.2 mg/dL 01/13/2025 7:31 AM EDT LABORATORY [facility] Bilirubin, Direct 0.4(H) 0.0 - 0.3 mg/dL 01/13/2025 7:31 AM EDT LABORATORY [facility] Protein 6.4 6.0 - 8.3 g/dL 01/13/2025 7:31 AM EDT LABORATORY C Blood Venous blood specimen / Unknown Venipuncture / Unknown 01/13/2025 6:43 AM EDT 01/13/2025 7:00 AM EDT Cheng Mcnally DO LAB BLOOD ORDERABLES Final Resu lt LABORATORY [facility] [address], [place] [id number] * (ABNORMAL) BASIC METABOLIC PANEL (01/13/2025 6:43 AM EDT) BUN 8 6 - 20 mg/dL 01/13/2025 7:31 AM EDT LABORATORY C CREATININE 0.6 0.5 - 1.0 mg/dL 01/13/2025 7:31 AM EDT LABORATORY C EGFR >90 >=60 mL/min 01/13/2025 7:31 AM EDT LABORATORY C Comment:eGFR is calculated b ased on the CKD-EPI 2020 equation. SODIUM 137 135 - 146 mmol/L 01/13/2025 7:31 AM EDT LABORATORY [facility] POTASSIUM 3.3(L) 3.5 - 5.1 mmol/L 01/13/2025 7:31 AM EDT LABORATORY [facility] CHLORIDE 99 98 - 107 mmol/L 01/13/2025 7:31 AM EDT LABORATORY [facility] CO2 28 22 - 32 mmol/L 01/13/2025 7:31 AM EDT LABORATORY [facility] ANION GAP 10 7 - 15 mmol/L 01/13/2025 7:31 AM EDT LABORATORY [facility] GLUCOSE 157(H) 70 - 120 mg/dL 01/13/2025 7:31 AM EDT LABORATORY [facility] CALCIUM 9.2 8.4 - 10.2 mg/dL 01/13/2025 7:31 AM EDT LABORATORY C Blood Venous blood specimen / Unknown Venipuncture / Unknown 01/13/2025 6:43 AM EDT 01/13/2025 7:00 AM EDT us Cheng Mcnally DO LAB BLOOD ORDERABLES Final Resu lt LABORATORY [facility] [address] [place] [address] * (ABNORMAL) PT INR (01/13/2025 6:43 AM EDT) Prothrombin Time 18.2(H) 11.6 - 15.2 seconds 01/13/2025 7:57 AM EDT LABORATORY [facility] INR 1.5(H) 0.8 - 1.2 01/13/2025 7:57 AM EDT LABORATORY [facility] Blood Venous blood specimen / Unknown Venipuncture / Unknown 01/13/2025 6:43 AM EDT 01/13/2025 7:00 AM EDT Narrative LABORATORY [facility] - 01/13/2025 7:57 AM EDT Warfarin Therapy INR: 2.0-3.0 conventional anticoagulation INR: 2.5-3.5 high intensity anticoagulation Cheng [facility] LAB BLOOD ORDERABLES Final Resu lt Performing Organization Address [facility] de Phone Number LABORATORY [facility] [address] [place] [address] * CYTOLOGY (01/12/2025 9:26 AM EDT) Final Diagnosis A. Bone, CT/US guided core needle biopsy: Adequacy: Satisfactory for evaluation. Category: Malignant. Interpretation: Metastatic carcinoma, compatible with history of hepatocellular carcinoma. Other: Biopsy: The histological sections of the biopsy specimen contain fragments of tissue. Comment: Tumor cells (A1, A3 80%) are focally positive for AE1 AE3, arginase, glypican 3 (focal), albumin-TETE, Hepar (focal); negative for CK7 and CK20. The immunophenotype and morphology compatible with hepatocellular carcinoma. History of hepatocellular carcinoma is also noted. 8:46 AM EDT LABORATORY [facility] Prior Cancer Other Comment: Hepatocellular Carcinoma 8:46 AM EDT LABORATORY [facility] Indication for Procedure cancer diagnosis 8:46 AM EDT LABORATORY [facility] Gross Description A. Bone. Received are 1 air dried slide and specimen in saline labeled with name: Neha Marks and bone, and verified with the patient's name and date of . The saline specimen A1 contains 4 tissue fragments, up to 1 mm in size. The saline specimen A3 contains 5 tissue fragments, up to 2 mm in size.Specimen sent for cell block. The slides are stained and specimen is prepared for cell block at [facility]. The cell block is submitted in A1/ A3 and processed at [facility]. Prepared by: FORTUNATO Formalin fixation time: 8 hours 5 8:46 AM EDT LABORATORY [facility] Intraprocedural Assessment A. Bone. Collecting Physician: Dr. Kincaid Type of Assessment: Immediate evaluation by pathologist and Telecytology used Onsite Personnel: DAVIDA Foster([facility]) Time: 09:25 Source: Bone Part: [id number] Pass(es): 1 Adequacy: Adequate for diagnosis/Material collected for ancillary studies Preliminary: Positive for malignant cells Additional passes for block: No Additional tube for molecular/Flow: No Reason for terminating procedure: Procedure endpoint (reasonable number of passes made) Additional Information: Hx of HCC, lytic lesion in the rt. Scapula End Time: 09:26 Intraprocedural assessment performed by: Tony Kam MD Specimen sent for: Specimen sent for cell block 5 8:46 AM EDT LABORATORY [facility] Performing Labs Director Process screening performed at [facility]), [address] [place] [address]. Pathologist sign out performed at [facility] ([facility] [place] [address]. 5 8:46 AM EDT LABORATORY [facility] Photographic images and diagrams represent humphrey findings in this case;they are not intended to replace a complete review of the final diagnostic report. The following statement applies to Flow Cytometry, Histology, In situ Hybridization Assays and Molecular Genetics. This test was [place] [address] and its performance characteristics determined by [facility] [employer] [facility]. It has not been cleared or approved by the U.S. Food and Drug Administration. The FDA has determined that such clearance or approval is not necessary. This test is used for clinical purposes. It should not be regarded as investigational or for research. Special stains, including histochemical stains, and studies using immunologic and TETE methodology (where applicable) are performed with appropriate positive and negative control reactions. 8:46 AM EDT LABORATORY G[facility] Tissue Specimen from wound / Unknown Non-blood Collection / Unknown 01/12/2025 9:26 AM EDT 01/12/2025 10:08 AM EDT us Nadpilarda Pablitotic DO LAB CYTOLOGY ORDERABLES Final Result LABORATORY [facility] [address] [place] [address] * (ABNORMAL) CBC (01/12/2025 5:52 AM EDT) WBC 4.90 4.00 - 10.80 K/uL 01/12/2025 6:24 AM EDT LABORATORY [facility] RBC 3.46 3.85 - 5.15 M/uL 01/12/2025 6:24 AM EDT LABORATORY [facility] HGB 9.9(L) 12.0 - 15.3 g/dL 01/12/2025 6:24 AM EDT LABORATORY G[facility] HCT 32.4(L) 36.0 - 45.2 % 01/12/2025 6:24 AM EDT LABORATORY G[facility] MCV 93.6 81.5 - 97.5 fL 01/12/2025 6:24 AM EDT LABORATORY G[facility] MCH 28.6 27.0 - 34.0 pg 01/12/2025 6:24 AM EDT LABORATORY G[facility] MCHC 30.6 32.0 - 36.0 g/dL 01/12/2025 6:24 AM EDT LABORATORY G[facility] RDW 16.6 11.5 - 15.5 % 01/12/2025 6:24 AM EDT LABORATORY G[facility] PLT 82(L) 140 - 400 K/uL 01/12/2025 6:24 AM EDT LABORATORY G[facility] MPV 12.6 6.6 - 11.1 fL 01/12/2025 6:24 AM EDT LABORATORY GM nRBCs 0 <=0 /100 WBCs 01/12/2025 6:24 AM EDT LABORATORY G[facility] Blood Venous blood specimen / Unknown Venipuncture / Unknown 01/12/2025 5:52 AM EDT 01/12/2025 5:58 AM EDT Cheng Mcnally DO LAB BLOOD ORDERABLES Final Resu lt Performing Organization Address [facility] Co de Phone Number LABORATORY [facility] [address] [place] [address] * (ABNORMAL) HEPATIC FUNCTION PANEL (01/12/2025 5:52 AM EDT) Albumin 3.7(L) 3.8 - 5.0 g/dL 01/12/2025 6:39 AM EDT LABORATORY G[facility] AST 68(H) 10 - 35 U/L 01/12/2025 6:39 AM EDT LABORATORY G[facility] Alkaline Phosphatase 507(H) 35 - 130 U/L 01/12/2025 6:39 AM EDT LABORATORY G[facility] ALT 37(H) 10 - 35 U/L 01/12/2025 6:39 AM EDT LABORATORY GMC Bilirubin, Total 0.8 <=1.2 mg/dL 01/12/2025 6:39 AM EDT LABORATORY G[facility] Bilirubin, Direct 0.5(H) 0.0 - 0.3 mg/dL 01/12/2025 6:39 AM EDT LABORATORY G[facility] Protein 6.5 6.0 - 8.3 g/dL 01/12/2025 6:39 AM EDT LABORATORY C Blood Venous blood specimen / Unknown Venipuncture / Unknown 01/12/2025 5:52 AM EDT 01/12/2025 5:58 AM EDT Cheng Mcnally DO LAB BLOOD ORDERABLES Final Resu lt Performing Organization Address City/[facility]/ZIP Co de Phone Number LABORATORY [facility] [address] [place] [address] * BASIC METABOLIC PANEL (01/12/2025 5:52 AM EDT) BUN 10 6 - 20 mg/dL 01/12/2025 6:39 AM EDT LABORATORY [facility] CREATININE 0.7 0.5 - 1.0 mg/dL 01/12/2025 6:39 AM EDT LABORATORY G[facility] EGFR >90 >=60 mL/min 01/12/2025 6:39 AM EDT LABORATORY GMC Comment:eGFR is calculated b ased on the CKD-EPI 2020 equation. SODIUM 141 135 - 146 mmol/L 01/12/2025 6:39 AM EDT LABORATORY GMC POTASSIUM 4.0 3.5 - 5.1 mmol/L 01/12/2025 6:39 AM EDT LABORATORY GMC CHLORIDE 101 98 - 107 mmol/L 01/12/2025 6:39 AM EDT LABORATORY GMC CO2 30 22 - 32 mmol/L 01/12/2025 6:39 AM EDT LABORATORY C ANION GAP 10 7 - 15 mmol/L 01/12/2025 6:39 AM EDT LABORATORY G[facility] GLUCOSE 120 70 - 120 mg/dL 01/12/2025 6:39 AM EDT LABORATORY C CALCIUM 9.2 8.4 - 10.2 mg/dL 01/12/2025 6:39 AM EDT LABORATORY C Blood Venous blood specimen / Unknown Venipuncture / Unknown 01/12/2025 5:52 AM EDT 01/12/2025 5:58 AM EDT us Cheng Mcnally DO LAB BLOOD ORDERABLES Final Resu lt LABORATORY [facility] [address] [place] [address] * (ABNORMAL) PT INR (01/12/2025 5:52 AM EDT) Pathologist [facility] Prothrombin Time 17.8(H) 11.6 - 15.2 seconds 01/12/2025 6:31 AM EDT LABORATORY GMC INR 1.5(H) 0.8 - 1.2 01/12/2025 6:31 AM EDT LABORATORY [facility] Blood Venous blood specimen / Unknown Venipuncture / Unknown 01/12/2025 5:52 AM EDT 01/12/2025 5:58 AM EDT Narrative LABORATORY [facility] - 01/12/2025 6:31 AM EDT Warfarin Therapy INR: 2.0-3.0 conventional anticoagulation INR: 2.5-3.5 high intensity anticoagulation us Cheng Mcnally DO LAB BLOOD ORDERABLES Final Resu lt LABORATORY [facility] [address] [place] [address] * MRI BRAIN W WO CONTRAST (01/12/2025 2:20 AM EDT) Anatomical Region Laterality Modality Neuro, Head Magnetic Resonan ce 01/12/2025 8:16 AM EDT Impressions 01/12/2025 8:13 AM EDT IMPRESSION 1. 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 No convincing intradural extension of tumor. 2. Focal tumoral invasion of the superior sagittal sinus. 3. No brain metastases are demonstrated. 4. Additional findings as above. Narrative 01/12/2025 8:13 AM EDT EXAM MRI BRAIN WITH/WITHOUT CONTRAST, MRV BRAIN WITH/WITHOUT CONTRAST-01/12/2025 HISTORY 64-year-old female with hepatocellular carcinoma. New lytic bony lesion arising in the left frontal calvarium suspicious for metastasis. COMPARISON CT head 01/10/2025 TECHNIQUE Multiplanar, multisequence magnetic resonance images of the brain are acquired before and after administration of IV contrast using standard protocol. MR V is performed using [id number] technique both without and with IV contrast. FINDINGS MRI BRAIN: A well-circumscribed, expansile, homogeneously enhancing osseous mass arising from the left paramedian frontal calvarium measures roughly 3.4 cm x 2.3 cm x 3.6 cm (TRV by CC by AP). This lesion correlates with the lytic lesion noted on CT and likely represents a bony metastasis. Enhancing tumor destroys both the inner and outer table of the frontal bone in this region, extending into the overlying subcutaneous soft tissues and invading the underlying dura. No convincing intradural extension of tumor. Along its medial margin, the mass directly invades the superior sagittal sinus. No additional bony lesions are demonstrated. The brain shows mild, global cerebral volume loss with proportionate sulcal prominence. No other discrete intra-axial or extra-axial masses are identified. No abnormal leptomeningeal enhancement. There is no brain edema, mass effect, midline shift, hydrocephalus, or extra-axial fluid collection. Diffusion-weighted sequence shows no restricted diffusion suspicious for acute ischemia. No abnormal signal suspicious for hemorrhage is noted on the susceptibility weighted images. Pituitary gland, corpus callosum, pineal region, brainstem, cerebellum, and craniocervical junction are unremarkable. Expected intracranial arterial flow voids are grossly maintained. Nondedicated images through the orbits reveal no gross orbital pathology. MRV BRAIN: Precontrast [id number] images demonstrate focal attenuation along the anterior aspect of the superior sagittal sinus. Post-contrast images confirm focal tumoral invasion of the superior sagittal sinus in this location. Remainder of the superior sagittal sinus both anterior and posterior to this lesion are normal in caliber. Right transverse sinus is dominant and the left transverse sinus is hypoplastic (anatomic variant). Left sigmoid sinus and internal jugular vein are also relatively diminutive, but patent. Right sigmoid sinus and proximal internal jugular vein are widely patent. In the deep system, the inferior sagittal sinus, internal cerebral veins, great vein of Guillermo, and straight sinus are patent. Procedure Note Nisa Jordan MD - 01/12/2025 EXAM MRI BRAIN WITH/WITHOUT CONTRAST, MRV BRAIN WITH/WITHOUTCONTRAST-01/12/2025 HISTORY 64-year-old female with hepatocellular carcinoma. New lytic bony lesionarising in the left frontal calvarium suspicious for metastasis. COMPARISON CT head 01/10/2025 TECHNIQUE Multiplanar, multisequence magnetic resonance images of the brain areacquired before and after administration of IV contrast using standardprotocol. MR V is performed using upja-bu-lcrsrl technique both withoutand with IV contrast. FINDINGS MRI BRAIN: A well-circumscribed, expansile, homogeneously enhancingosseous mass arising from the left paramedian frontal calvarium measuresroughly 3.4 cm x 2.3 cm x 3.6 cm (TRV by CC by AP). This lesioncorrelates with the lytic lesion noted on CT and likely represents a bonymetastasis. Enhancing tumor destroys both the inner and outer table ofthe frontal bone in this region, extending into the overlying subcutaneoussoft tissues and invading the underlying dura. No convincing intraduralextension of tumor. Along its medial margin, the mass directly invadesthe superior sagittal sinus. No additional bony lesions aredemonstrated. The brain shows mild, global cerebral volume loss with proportionatesulcal prominence. No other discrete intra-axial or extra-axial massesare identified. No abnormal leptomeningeal enhancement. There is nobrain edema, mass effect, midline shift, hydrocephalus, or extra-axialfluid collection. Diffusion-weighted sequence shows no restricted diffusion suspicious foracute ischemia. No abnormal signal suspicious for hemorrhage is noted onthe susceptibility weighted images. Pituitary gland, corpus callosum, pineal region, brainstem, cerebellum,and craniocervical junction are unremarkable. Expected intracranialarterial flow voids are grossly maintained. Nondedicated images throughthe orbits reveal no gross orbital pathology. MRV BRAIN: Precontrast [id number] images demonstrate focal attenuationalong the anterior aspect of the superior sagittal sinus. Post-contrastimages confirm focal tumoral invasion of the superior sagittal sinus inthis location. Remainder of the superior sagittal sinus both anterior andposterior to this lesion are normal in caliber. Right transverse sinus is dominant and the left transverse sinus ishypoplastic (anatomic variant). Left sigmoid sinus and internal jugularvein are also relatively diminutive, but patent. Right sigmoid sinus andproximal internal jugular vein are widely patent. In the deep system, the inferior sagittal sinus, internal cerebral veins,great vein of Guillermo, and straight sinus are patent. IMPRESSION IMPRESSION 1. 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 No convincing intradural extension of tumor. 2. Focal tumoral invasion of the superior sagittal sinus. 3. No brain metastases are demonstrated. 4. Additional findings as above. Cheng Mcnally DO RAD MRI-MRA Final Result * MRV BRAIN W WO CONTRAST (01/12/2025 2:19 AM EDT) Anatomical Region Laterality Modality Head, Neuro Magnetic Resonan ce 01/12/2025 8:16 AM EDT Impressions 01/12/2025 8:13 AM EDT IMPRESSION 1. 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 No convincing intradural extension of tumor. 2. Focal tumoral invasion of the superior sagittal sinus. 3. No brain metastases are demonstrated. 4. Additional findings as above. Narrative 01/12/2025 8:13 AM EDT EXAM MRI BRAIN WITH/WITHOUT CONTRAST, MRV BRAIN WITH/WITHOUT CONTRAST-01/12/2025 HISTORY 64-year-old female with hepatocellular carcinoma. New lytic bony lesion arising in the left frontal calvarium suspicious for metastasis. COMPARISON CT head 01/10/2025 TECHNIQUE Multiplanar, multisequence magnetic resonance images of the brain are acquired before and after administration of IV contrast using standard protocol. MR V is performed using lent-af-skcodn technique both without and with IV contrast. FINDINGS MRI BRAIN: A well-circumscribed, expansile, homogeneously enhancing osseous mass arising from the left paramedian frontal calvarium measures roughly 3.4 cm x 2.3 cm x 3.6 cm (TRV by CC by AP). This lesion correlates with the lytic lesion noted on CT and likely represents a bony metastasis. Enhancing tumor destroys both the inner and outer table of the frontal bone in this region, extending into the overlying subcutaneous soft tissues and invading the underlying dura. No convincing intradural extension of tumor. Along its medial margin, the mass directly invades the superior sagittal sinus. No additional bony lesions are demonstrated. The brain shows mild, global cerebral volume loss with proportionate sulcal prominence. No other discrete intra-axial or extra-axial masses are identified. No abnormal leptomeningeal enhancement. There is no brain edema, mass effect, midline shift, hydrocephalus, or extra-axial fluid collection. Diffusion-weighted sequence shows no restricted diffusion suspicious for acute ischemia. No abnormal signal suspicious for hemorrhage is noted on the susceptibility weighted images. Pituitary gland, corpus callosum, pineal region, brainstem, cerebellum, and craniocervical junction are unremarkable. Expected intracranial arterial flow voids are grossly maintained. Nondedicated images through the orbits reveal no gross orbital pathology. MRV BRAIN: Precontrast [id number] images demonstrate focal attenuation along the anterior aspect of the superior sagittal sinus. Post-contrast images confirm focal tumoral invasion of the superior sagittal sinus in this location. Remainder of the superior sagittal sinus both anterior and posterior to this lesion are normal in caliber. Right transverse sinus is dominant and the left transverse sinus is hypoplastic (anatomic variant). Left sigmoid sinus and internal jugular vein are also relatively diminutive, but patent. Right sigmoid sinus and proximal internal jugular vein are widely patent. In the deep system, the inferior sagittal sinus, internal cerebral veins, great vein of Guillermo, and straight sinus are patent. Procedure Note Nisa Jordan MD - 01/12/2025 EXAM MRI BRAIN WITH/WITHOUT CONTRAST, MRV BRAIN WITH/WITHOUTCONTRAST-01/12/2025 HISTORY 64-year-old female with hepatocellular carcinoma. New lytic bony lesionarising in the left frontal calvarium suspicious for metastasis. COMPARISON CT head 01/10/2025 TECHNIQUE Multiplanar, multisequence magnetic resonance images of the brain areacquired before and after administration of IV contrast using standardprotocol. MR V is performed using hflu-aa-hjavzk technique both withoutand with IV contrast. FINDINGS MRI BRAIN: A well-circumscribed, expansile, homogeneously enhancingosseous mass arising from the left paramedian frontal calvarium measuresroughly 3.4 cm x 2.3 cm x 3.6 cm (TRV by CC by AP). This lesioncorrelates with the lytic lesion noted on CT and likely represents a bonymetastasis. Enhancing tumor destroys both the inner and outer table ofthe frontal bone in this region, extending into the overlying subcutaneoussoft tissues and invading the underlying dura. No convincing intraduralextension of tumor. Along its medial margin, the mass directly invadesthe superior sagittal sinus. No additional bony lesions aredemonstrated. The brain shows mild, global cerebral volume loss with proportionatesulcal prominence. No other discrete intra-axial or extra-axial massesare identified. No abnormal leptomeningeal enhancement. There is nobrain edema, mass effect, midline shift, hydrocephalus, or extra-axialfluid collection. Diffusion-weighted sequence shows no restricted diffusion suspicious foracute ischemia. No abnormal signal suspicious for hemorrhage is noted onthe susceptibility weighted images. Pituitary gland, corpus callosum, pineal region, brainstem, cerebellum,and craniocervical junction are unremarkable. Expected intracranialarterial flow voids are grossly maintained. Nondedicated images throughthe orbits reveal no gross orbital pathology. MRV BRAIN: Precontrast [id number] images demonstrate focal attenuationalong the anterior aspect of the superior sagittal sinus. Post-contrastimages confirm focal tumoral invasion of the superior sagittal sinus inthis location. Remainder of the superior sagittal sinus both anterior andposterior to this lesion are normal in caliber. Right transverse sinus is dominant and the left transverse sinus ishypoplastic (anatomic variant). Left sigmoid sinus and internal jugularvein are also relatively diminutive, but patent. Right sigmoid sinus andproximal internal jugular vein are widely patent. In the deep system, the inferior sagittal sinus, internal cerebral veins,great vein of Guillermo, and straight sinus are patent. IMPRESSION IMPRESSION 1. 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 No convincing intradural extension of tumor. 2. Focal tumoral invasion of the superior sagittal sinus. 3. No brain metastases are demonstrated. 4. Additional findings as above. us Cheng Mcnally DO RAD MRI-MRA Final Result * (ABNORMAL) BASIC METABOLIC PANEL (01/11/2025 6:33 PM EDT) BUN 7 6 - 20 mg/dL 01/11/2025 7:09 PM EDT LABORATORY C CREATININE 0.6 0.5 - 1.0 mg/dL 01/11/2025 7:09 PM EDT LABORATORY C EGFR >90 >=60 mL/min 01/11/2025 7:09 PM EDT LABORATORY [facility] Comment:eGFR is calculated b ased on the CKD-EPI 2020 equation. SODIUM 140 135 - 146 mmol/L 01/11/2025 7:09 PM EDT LABORATORY C POTASSIUM 3.5 3.5 - 5.1 mmol/L 01/11/2025 7:09 PM EDT LABORATORY C CHLORIDE 97(L) 98 - 107 mmol/L 01/11/2025 7:09 PM EDT LABORATORY C CO2 31 22 - 32 mmol/L 01/11/2025 7:09 PM EDT LABORATORY C ANION GAP 12 7 - 15 mmol/L 01/11/2025 7:09 PM EDT LABORATORY [facility] GLUCOSE 195(H) 70 - 120 mg/dL 01/11/2025 7:09 PM EDT LABORATORY C CALCIUM 9.4 8.4 - 10.2 mg/dL 01/11/2025 7:09 PM EDT LABORATORY [facility] Blood Venous blood specimen / Unknown Venipuncture / Unknown 01/11/2025 6:33 PM EDT 01/11/2025 6:39 PM EDT Cheng Mcnally DO LAB BLOOD ORDERABLES Final Resu lt Performing Organization Address [facility] Co de Phone Number LABORATORY C [address] [place] [address] * (ABNORMAL) HEPATIC FUNCTION PANEL (01/11/2025 6:39 AM EDT) Albumin 3.5(L) 3.8 - 5.0 g/dL 01/11/2025 7:41 AM EDT LABORATORY [facility] AST 67(H) 10 - 35 U/L 01/11/2025 7:41 AM EDT LABORATORY [facility] Alkaline Phosphatase 510(H) 35 - 130 U/L 01/11/2025 7:41 AM EDT LAB[facility]ATORY [facility] ALT 42(H) 10 - 35 U/L 01/11/2025 7:41 AM EDT LAB[facility]ATORY [facility] Bilirubin, Total 1.0 <=1.2 mg/dL 01/11/2025 7:41 AM EDT LABORATORY [facility] Bilirubin, Direct 0.5(H) 0.0 - 0.3 mg/dL 01/11/2025 7:41 AM EDT LAB[facility]ATORY [facility] Protein 5.9(L) 6.0 - 8.3 g/dL 01/11/2025 7:41 AM EDT LAB[facility]ATORY [facility] Blood Venous blood specimen / Unknown Venipuncture / Unknown 01/11/2025 6:39 AM EDT 01/11/2025 7:13 AM EDT Cheng Mcnally DO LAB BLOOD ORDERABLES Final Resu lt Performing Organization Address [facility]/ZIP Co de Phone Number LABORATORY [facility] [address] [place] [address] * (ABNORMAL) BASIC METABOLIC PANEL (01/11/2025 6:39 AM EDT) BUN 8 6 - 20 mg/dL 01/11/2025 7:41 AM EDT LAB[facility]ATORY [facility] CREATININE 0.6 0.5 - 1.0 mg/dL 01/11/2025 7:41 AM EDT LABORATORY [facility] EGFR >90 >=60 mL/min 01/11/2025 7:41 AM EDT LABORATORY [facility] Comment:eGFR is calculated b ased on the CKD-EPI 2020 equation. SODIUM 142 135 - 146 mmol/L 01/11/2025 7:41 AM EDT LAB[facility]ATORY [facility] POTASSIUM 3.6 3.5 - 5.1 mmol/L 01/11/2025 7:41 AM EDT LAB[facility]ATORY [facility] CHLORIDE 103 98 - 107 mmol/L 01/11/2025 7:41 AM EDT LAB[facility]ATORY [facility] CO2 27 22 - 32 mmol/L 01/11/2025 7:41 AM EDT LAB[facility]ATORY [facility] ANION GAP 12 7 - 15 mmol/L 01/11/2025 7:41 AM EDT LABORATORY [facility] GLUCOSE 125(H) 70 - 120 mg/dL 01/11/2025 7:41 AM EDT LAB[facility]ATORY [facility] CALCIUM 8.9 8.4 - 10.2 mg/dL 01/11/2025 7:41 AM EDT LABORATORY [facility] Blood Venous blood specimen / Unknown Venipuncture / Unknown 01/11/2025 6:39 AM EDT 01/11/2025 7:13 AM EDT us Cheng Mcnally DO LAB BLOOD ORDERABLES Final Resu lt LABORATORY [facility] [address] [place] [address] * (ABNORMAL) PT INR (01/11/2025 6:39 AM EDT) Pathologist [facility] Prothrombin Time 17.1(H) 11.6 - 15.2 seconds 01/11/2025 7:35 AM EDT LABORATORY [facility] INR 1.4(H) 0.8 - 1.2 01/11/2025 7:35 AM EDT LABORATORY [facility] Blood Venous blood specimen / Unknown Venipuncture / Unknown 01/11/2025 6:39 AM EDT 01/11/2025 7:13 AM EDT Narrative LAB[facility]ATORY [facility] - 01/11/2025 7:35 AM EDT Warfarin Therapy INR: 2.0-3.0 conventional anticoagulation INR: 2.5-3.5 high intensity anticoagulation Cheng Mcnally DO LAB BLOOD ORDERABLES Final Resu lt Performing Organization Address City/[facility]/ZIP Co de Phone Number LABORATORY [facility] [address] [place] [address] * (ABNORMAL) ALPHA-FETOPROTEIN TUMOR MARKER (01/11/2025 6:39 AM EDT) [facility] Alpha-Fetoprot ein Tumor Marker 8,672.0(H) 0.0 - 8.3 ng/mL 01/11/2025 11:55 AM EDT LABORATORY [facility] Blood Venous blood specimen / Unknown Venipuncture / Unknown 01/11/2025 6:39 AM EDT 01/11/2025 7:13 AM EDT Cheng Mcnally DO LAB BLOOD ORDERABLES Final Resu lt Performing Organization Address [facility] Co de Phone Number LABORATORY [facility] [address] [place] [address] * (ABNORMAL) CBC (01/11/2025 6:38 AM EDT) [facility] WBC 4.46 4.00 - 10.80 K/uL 01/11/2025 7:23 AM EDT LABORATORY [facility] RBC 3.44 3.85 - 5.15 M/uL 01/11/2025 7:23 AM EDT LABORATORY GM HGB 10.0(L) 12.0 - 15.3 g/dL 01/11/2025 7:23 AM EDT LAB[facility]ATORY [facility] HCT 32.8(L) 36.0 - 45.2 % 01/11/2025 7:23 AM EDT LAB[facility]ORY [facility] MCV 95.3 81.5 - 97.5 fL 01/11/2025 7:23 AM EDT LAB[facility]ORY [facility] MCH 29.1 27.0 - 34.0 pg 01/11/2025 7:23 AM EDT LAB[facility]ORY [facility] MCHC 30.5 32.0 - 36.0 g/dL 01/11/2025 7:23 AM EDT LABORATORY GM RDW 16.4 11.5 - 15.5 % 01/11/2025 7:23 AM EDT LABORATORY [facility] PLT 65(L) 140 - 400 K/uL 01/11/2025 7:23 AM EDT LABORATORY [facility] MPV 13.0 6.6 - 11.1 fL 01/11/2025 7:23 AM EDT LABORATORY [facility] nRBCs 0 <=0 /100 WBCs 01/11/2025 7:23 AM EDT LABORATORY [facility] Blood Venous blood specimen / Unknown Venipuncture / Unknown 01/11/2025 6:38 AM EDT 01/11/2025 7:12 AM EDT us Cheng Mcnally DO LAB BLOOD ORDERABLES Final Resu lt LABORATORY [facility] [address] [place] [address] * CT HEAD/BRAIN W CONTRAST (01/10/2025 10:32 PM EDT) Anatomical Region Laterality Modality Head Computed Tomogra phy 01/11/2025 2:12 AM EDT Impressions 01/11/2025 2:[address] HEAD/BRAIN W CONTRAST: 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 There is associated extension into the overlie scalp and into the underlying epidural region with mild mass effect on the left frontal lobe brain parenchyma. No definite additional metastatic lesions. MRI without with contrast offers greater sensitivity and could be obtained for further assessment, if not contraindicated. There is likely direct invasion of the anterior superior sagittal sinus. Recommend CT venogram to exclude venous thrombosis. Short contrast enhance CT interval follow-up is recommended. Added to [employer] result communication system on 01/11/2025 at 2:08 am. Narrative 01/11/2025 2:[address] HEAD/BRAIN W CONTRAST - 01/10/2025 HISTORY Known HCC with suspected metastatic disease, ? bone lesion L frontal area COMPARISON No Comparison. TECHNIQUE Computed tomography of the head was performed with contrast. Axial and reformatted coronal/sagittal images were provided. Images were reviewed in bone, subdural, soft tissue, brain, and stroke windows. FINDINGS Large destructive upper left paramedian a approximately 3 x 3 cm left frontal bone metastasis. There is destruction of the inner and outer table. There is associated extension into the overlie scalp and into the underlying epidural region with mild mass effect on the left frontal lobe brain parenchyma. No left frontal lobe edema. There is likely direct invasion of the anterior superior sagittal sinus. Atherosclerotic changes. Global parenchymal volume loss with proportionate sulcal prominence. No hydrocephalus. Non-specific hypodensities in the bilateral periventricular and subcortical white matter favor chronic microvascular ischemic disease in this age group. Degroot-white matter differentiation is otherwise preserved. No acute orbital finding. No evidence for acute sinusitis. Mastoid air cells are clear. Procedure Note Zain Rodriguez MD - 01/11/[address] HEAD/BRAIN W CONTRAST - 01/10/2025 HISTORY Known HCC with suspected metastatic disease, ? bone lesion L frontalarea COMPARISON No Comparison. TECHNIQUE Computed tomography of the head was performed with contrast. Axial andreformatted coronal/sagittal images were provided. Images were reviewed inbone, subdural, soft tissue, brain, and stroke windows. FINDINGS Large destructive upper left paramedian a approximately 3 x 3 cm leftfrontal bone metastasis. There is destruction of the inner and outertable. There is associated extension into the overlie scalp and into theunderlying epidural region with mild mass effect on the left frontal lobebrain parenchyma. No left frontal lobe edema. There is likely directinvasion of the anterior superior sagittal sinus. Atherosclerotic changes. Global parenchymal volume loss with proportionatesulcal prominence. No hydrocephalus. Non-specific hypodensities in thebilateral periventricular and subcortical white matter favor chronicmicrovascular ischemic disease in this age group. Degroot-white matterdifferentiation is otherwise preserved. No acute orbital finding. No evidence for acute sinusitis. Mastoid aircells are clear. 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 There isassociated extension into the overlie scalp and into the underlyingepidural region with mild mass effect on the left frontal lobe brainparenchyma. No definite additional metastatic lesions. MRI without withcontrast offers greater sensitivity and could be obtained for furtherassessment, if not contraindicated. There is likely direct invasion of the anterior superior sagittal sinus.Recommend CT venogram to exclude venous thrombosis. Short contrast enhance CT interval follow-up is recommended. Added to [employer] result communication system on 01/11/2025 at 2:08 am. us Cheng Mcnally DO RAD CT Final Result * (ABNORMAL) CBC (01/10/2025 6:02 AM EDT) WBC 4.79 4.00 - 10.80 K/uL 01/10/2025 6:32 AM EDT LAB[facility]ATORY [facility] RBC 3.44 3.85 - 5.15 M/uL 01/10/2025 6:32 AM EDT LAB[facility]ATORY [facility] HGB 10.4(L) 12.0 - 15.3 g/dL 01/10/2025 6:32 AM EDT LAB[facility]ATORY [facility] HCT 32.0(L) 36.0 - 45.2 % 01/10/2025 6:32 AM EDT LAB[facility]ORY [facility] MCV 93.0 81.5 - 97.5 fL 01/10/2025 6:32 AM EDT LAB[facility]ATORY [facility] MCH 30.2 27.0 - 34.0 pg 01/10/2025 6:32 AM EDT LAB[facility]ORY [facility] MCHC 32.5 32.0 - 36.0 g/dL 01/10/2025 6:32 AM EDT LAB[facility]ORY [facility] RDW 16.2 11.5 - 15.5 % 01/10/2025 6:32 AM EDT LAB[facility]ATORY [facility] PLT 79(L) 140 - 400 K/uL 01/10/2025 6:32 AM EDT LAB[facility]ATORY [facility] MPV 12.9 6.6 - 11.1 fL 01/10/2025 6:32 AM EDT LAB[facility]ORY [facility] nRBCs 0 <=0 /100 WBCs 01/10/2025 6:32 AM EDT LAB[facility] Blood Venous blood specimen / Unknown Venipuncture / Unknown 01/10/2025 6:02 AM EDT 01/10/2025 6:19 AM EDT us Cheng Mcnally DO LAB BLOOD ORDERABLES Final Resu lt LABORATORY [facility] [address] [place] [address] * (ABNORMAL) HEPATIC FUNCTION PANEL (01/10/2025 6:02 AM EDT) Pathologist [facility] Albumin 3.4(L) 3.8 - 5.0 g/dL 01/10/2025 6:50 AM EDT LABORATORY GM AST 62(H) 10 - 35 U/L 01/10/2025 6:50 AM EDT LAB[facility] Alkaline Phosphatase 492(H) 35 - 130 U/L 01/10/2025 6:50 AM EDT LAB[facility]ORY [facility] ALT 39(H) 10 - 35 U/L 01/10/2025 6:50 AM EDT LAB[facility] Bilirubin, Total 0.8 <=1.2 mg/dL 01/10/2025 6:50 AM EDT LABORATORY [facility] Bilirubin, Direct 0.5(H) 0.0 - 0.3 mg/dL 01/10/2025 6:50 AM EDT LAB[facility]ORY [facility] Protein 6.3 6.0 - 8.3 g/dL 01/10/2025 6:50 AM EDT LABORATORY [facility] Blood Venous blood specimen / Unknown Venipuncture / Unknown 01/10/2025 6:02 AM EDT 01/10/2025 6:19 AM EDT us Cheng Mcnally DO LAB BLOOD ORDERABLES Final Resu lt LABORATORY [facility] [address] [place] [address] * (ABNORMAL) BASIC METABOLIC PANEL (01/10/2025 6:02 AM EDT) [facility] BUN 9 6 - 20 mg/dL 01/10/2025 6:50 AM EDT LABORATORY [facility] CREATININE 0.5 0.5 - 1.0 mg/dL 01/10/2025 6:50 AM EDT LABORATORY [facility] EGFR >90 >=60 mL/min 01/10/2025 6:50 AM EDT LABORATORY [facility] Comment:eGFR is calculated b ased on the CKD-EPI 2020 equation. SODIUM 138 135 - 146 mmol/L 01/10/2025 6:50 AM EDT LABORATORY [facility] POTASSIUM 3.3(L) 3.5 - 5.1 mmol/L 01/10/2025 6:50 AM EDT LABORATORY [facility] CHLORIDE 103 98 - 107 mmol/L 01/10/2025 6:50 AM EDT LABORATORY C CO2 24 22 - 32 mmol/L 01/10/2025 6:50 AM EDT LABORATORY C ANION GAP 11 7 - 15 mmol/L 01/10/2025 6:50 AM EDT LABORATORY [facility] GLUCOSE 131(H) 70 - 120 mg/dL 01/10/2025 6:50 AM EDT LABORATORY [facility] CALCIUM 8.8 8.4 - 10.2 mg/dL 01/10/2025 6:50 AM EDT LABORATORY [facility] Blood Venous blood specimen / Unknown Venipuncture / Unknown 01/10/2025 6:02 AM EDT 01/10/2025 6:19 AM EDT Chneg Mcnally DO LAB BLOOD ORDERABLES Final Resu lt Performing Organization Address City/[facility]/ZIP Co de Phone Number LABORATORY [facility] [address] [place] [address] * (ABNORMAL) PT INR (01/10/2025 6:02 AM EDT) [facility] Prothrombin Time 17.4(H) 11.6 - 15.2 seconds 01/10/2025 6:42 AM EDT LABORATORY [facility] INR 1.4(H) 0.8 - 1.2 01/10/2025 6:42 AM EDT LABORATORY [facility] Blood Venous blood specimen / Unknown Venipuncture / Unknown 01/10/2025 6:02 AM EDT 01/10/2025 6:19 AM EDT Narrative LABORATORY [facility] - 01/10/2025 6:42 AM EDT Warfarin Therapy INR: 2.0-3.0 conventional anticoagulation INR: 2.5-3.5 high intensity anticoagulation Cheng Mcnally DO LAB BLOOD ORDERABLES Final Resu lt Performing Organization Address City/[facility]/ZIP Co de Phone Number LABORATORY [facility] [address] [place] [address] * EKG (01/09/2025 9:35 AM EDT) 01/09/2025 9:35 AM EDT Narrative Procedure Note Ortega Siddiqui MD - 01/09/2025 9:35 AM EDT REASON FOR STUDY: Notify provider if obtaining EKG;Chest pain CONCLUSIONS: Normal sinus rhythm Normal ECG When compared with ECG of 05-Jan-2025 20:32, No significant change was found Ventricular Rate: 92 Atrial Rate: 92 TX Interval: 138 QRS Duration: 84 QT/QTc: 350/432 ms P-R-T [place]: 62 : 51 : 13 degrees us Roxanne Owen MD EKG Final Result [facility] CARDIOLOG[facility] * (ABNORMAL) HEPATIC FUNCTION PANEL (01/09/2025 4:59 AM EDT) Pathologist [facility] Albumin 3.2(L) 3.8 - 5.0 g/dL 01/09/2025 5:42 AM EDT LABORATORY [facility] AST 67(H) 10 - 35 U/L 01/09/2025 5:42 AM EDT LABORATORY [facility] Alkaline Phosphatase 487(H) 35 - 130 U/L 01/09/2025 5:42 AM EDT LABORATORY [facility] ALT 42(H) 10 - 35 U/L 01/09/2025 5:42 AM EDT LABORATORY [facility] Bilirubin, Total 0.8 <=1.2 mg/dL 01/09/2025 5:42 AM EDT LABORATORY [facility] Bilirubin, Direct 0.4(H) 0.0 - 0.3 mg/dL 01/09/2025 5:42 AM EDT LABORATORY [facility] Protein 6.1 6.0 - 8.3 g/dL 01/09/2025 5:42 AM EDT LABORATORY [facility] Blood Venous blood specimen / Unknown Venipuncture / Unknown 01/09/2025 4:59 AM EDT 01/09/2025 5:08 AM EDT us Cheng Mcnally DO LAB BLOOD ORDERABLES Final Resu lt LABORATORY [facility] [address] [facility] [place] [address] * (ABNORMAL) BASIC METABOLIC PANEL (01/09/2025 4:59 AM EDT) BUN 9 6 - 20 mg/dL 01/09/2025 5:42 AM EDT LABORATORY [facility] CREATININE 0.6 0.5 - 1.0 mg/dL 01/09/2025 5:42 AM EDT LABORATORY [facility] EGFR >90 >=60 mL/min 01/09/2025 5:42 AM EDT LABORATORY [facility] Comment:eGFR is calculated b ased on the CKD-EPI 2020 equation. SODIUM 139 135 - 146 mmol/L 01/09/2025 5:42 AM EDT LABORATORY [facility] POTASSIUM 3.7 3.5 - 5.1 mmol/L 01/09/2025 5:42 AM EDT LABORATORY [facility] CHLORIDE 105 98 - 107 mmol/L 01/09/2025 5:42 AM EDT LABORATORY [facility] CO2 23 22 - 32 mmol/L 01/09/2025 5:42 AM EDT LABORATORY C ANION GAP 11 7 - 15 mmol/L 01/09/2025 5:42 AM EDT LABORATORY C GLUCOSE 152(H) 70 - 120 mg/dL 01/09/2025 5:42 AM EDT LABORATORY C CALCIUM 8.6 8.4 - 10.2 mg/dL 01/09/2025 5:42 AM EDT LABORATORY [facility] Blood Venous blood specimen / Unknown Venipuncture / Unknown 01/09/2025 4:59 AM EDT 01/09/2025 5:08 AM EDT Cheng Mcnally DO LAB BLOOD ORDERABLES Final Resu lt LABORATORY [facility] [address] [place] [address] * (ABNORMAL) PT INR (01/09/2025 4:59 AM EDT) Prothrombin Time 18.0(H) 11.6 - 15.2 seconds 01/09/2025 5:35 AM EDT LABORATORY [facility] INR 1.5(H) 0.8 - 1.2 01/09/2025 5:35 AM EDT LABORATORY [facility] Blood Venous blood specimen / Unknown Venipuncture / Unknown 01/09/2025 4:59 AM EDT 01/09/2025 5:08 AM EDT [facility] LABORATORY [facility] - 01/09/2025 5:35 AM EDT Warfarin Therapy INR: 2.0-3.0 conventional anticoagulation INR: 2.5-3.5 high intensity anticoagulation Cheng Mcnally DO LAB BLOOD ORDERABLES Final Resu lt LABORATORY [facility] [address] [place] [address] * (ABNORMAL) CBC (01/09/2025 4:58 AM EDT) WBC 4.50 4.00 - 10.80 K/uL 01/09/2025 5:20 AM EDT LABORATORY [facility] RBC 3.26 3.85 - 5.15 M/uL 01/09/2025 5:20 AM EDT LABORATORY [facility] HGB 9.6(L) 12.0 - 15.3 g/dL 01/09/2025 5:20 AM EDT LABORATORY [facility] HCT 31.2(L) 36.0 - 45.2 % 01/09/2025 5:20 AM EDT LABORATORY [facility] MCV 95.7 81.5 - 97.5 fL 01/09/2025 5:20 AM EDT LABORATORY [facility] MCH 29.4 27.0 - 34.0 pg 01/09/2025 5:20 AM EDT LABORATORY [facility] MCHC 30.8 32.0 - 36.0 g/dL 01/09/2025 5:20 AM EDT LABORATORY [facility] RDW 16.1 11.5 - 15.5 % 01/09/2025 5:20 AM EDT LABORATORY [facility] PLT 63(L) 140 - 400 K/uL 01/09/2025 5:20 AM EDT LABORATORY [facility] MPV 13.0 6.6 - 11.1 fL 01/09/2025 5:20 AM EDT LABORATORY [facility] nRBCs 0 <=0 /100 WBCs 01/09/2025 5:20 AM EDT LABORATORY [facility] Blood Venous blood specimen / Unknown Venipuncture / Unknown 01/09/2025 4:58 AM EDT 01/09/2025 5:08 AM EDT Cheng Mcnally DO LAB BLOOD ORDERABLES Final Resu lt LABORATORY [facility] [address] [place] [address] * (ABNORMAL) CBC (01/08/2025 5:52 AM EDT) [facility] WBC 4.80 4.00 - 10.80 K/uL 01/08/2025 6:27 AM EDT LABORATORY [facility] RBC 3.26 3.85 - 5.15 M/uL 01/08/2025 6:27 AM EDT LABORATORY [facility] HGB 9.5(L) 12.0 - 15.3 g/dL 01/08/2025 6:27 AM EDT LABORATORY [facility] HCT 30.9(L) 36.0 - 45.2 % 01/08/2025 6:27 AM EDT LABORATORY [facility] MCV 94.8 81.5 - 97.5 fL 01/08/2025 6:27 AM EDT LABORATORY [facility] MCH 29.1 27.0 - 34.0 pg 01/08/2025 6:27 AM EDT LABORATORY [facility] MCHC 30.7 32.0 - 36.0 g/dL 01/08/2025 6:27 AM EDT LABORATORY [facility] RDW 16.0 11.5 - 15.5 % 01/08/2025 6:27 AM EDT LABORATORY [facility] PLT 59(L) 140 - 400 K/uL 01/08/2025 6:27 AM EDT LABORATORY [facility] MPV 13.0 6.6 - 11.1 fL 01/08/2025 6:27 AM EDT LABORATORY [facility] nRBCs 0 <=0 /100 WBCs 01/08/2025 6:27 AM EDT LABORATORY [facility] Blood Venous blood specimen / Unknown Venipuncture / Unknown 01/08/2025 5:52 AM EDT 01/08/2025 6:12 AM EDT Cheng Mcnally DO LAB BLOOD ORDERABLES Final Resu lt Performing Organization Address [facility] de Phone Number LABORATORY [facility] [address] [place] [address] * (ABNORMAL) HEPATIC FUNCTION PANEL (01/08/2025 5:52 AM EDT) Albumin 3.3(L) 3.8 - 5.0 g/dL 01/08/2025 6:44 AM EDT LABORATORY [facility] AST 84(H) 10 - 35 U/L 01/08/2025 6:44 AM EDT LABORATORY [facility] Comment:Results may be false ly elevated due to hemolysis. Alkaline Phosphatase 508(H) 35 - 130 U/L 01/08/2025 6:44 AM EDT LABORATORY [facility] ALT 39(H) 10 - 35 U/L 01/08/2025 6:44 AM EDT LABORATORY [facility] Bilirubin, Total 0.8 <=1.2 mg/dL 01/08/2025 6:44 AM EDT LABORATORY [facility] Bilirubin, Direct 0.3 0.0 - 0.3 mg/dL 01/08/2025 6:44 AM EDT LABORATORY [facility] Comment:Result may be falsel y decreased due to hemolysis. Protein 6.2 6.0 - 8.3 g/dL 01/08/2025 6:44 AM EDT LABORATORY [facility] Blood Venous blood specimen / Unknown Venipuncture / Unknown 01/08/2025 5:52 AM EDT 01/08/2025 6:12 AM EDT Cheng Mcnally DO LAB BLOOD ORDERABLES Final Resu lt Performing Organization Address City/[facility]/ZIP Co de Phone Number LABORATORY [facility] [address] [place] [address] * (ABNORMAL) BASIC METABOLIC PANEL (01/08/2025 5:52 AM EDT) BUN 11 6 - 20 mg/dL 01/08/2025 6:44 AM EDT LABORATORY [facility] CREATININE 0.6 0.5 - 1.0 mg/dL 01/08/2025 6:44 AM EDT LABORATORY [facility] EGFR >90 >=60 mL/min 01/08/2025 6:44 AM EDT LABORATORY C Comment:eGFR is calculated b ased on the CKD-EPI 2020 equation. SODIUM 138 135 - 146 mmol/L 01/08/2025 6:44 AM EDT LABORATORY C POTASSIUM 3.3(L) 3.5 - 5.1 mmol/L 01/08/2025 6:44 AM EDT LABORATORY C CHLORIDE 104 98 - 107 mmol/L 01/08/2025 6:44 AM EDT LABORATORY C CO2 21(L) 22 - 32 mmol/L 01/08/2025 6:44 AM EDT LABORATORY C ANION GAP 13 7 - 15 mmol/L 01/08/2025 6:44 AM EDT LABORATORY [facility] GLUCOSE 165(H) 70 - 120 mg/dL 01/08/2025 6:44 AM EDT LABORATORY [facility] CALCIUM 8.7 8.4 - 10.2 mg/dL 01/08/2025 6:44 AM EDT LABORATORY [facility] Blood Venous blood specimen / Unknown Venipuncture / Unknown 01/08/2025 5:52 AM EDT 01/08/2025 6:12 AM EDT us Cheng Mcnally DO LAB BLOOD ORDERABLES Final Resu lt LABORATORY [facility] [address] [place] [address] * (ABNORMAL) PT INR (01/08/2025 5:52 AM EDT) [facility] Prothrombin Time 18.3(H) 11.6 - 15.2 seconds 01/08/2025 6:39 AM EDT LABORATORY C INR 1.5(H) 0.8 - 1.2 01/08/2025 6:39 AM EDT LABORATORY [facility] Blood Venous blood specimen / Unknown Venipuncture / Unknown 01/08/2025 5:52 AM EDT 01/08/2025 6:12 AM EDT Narrative LABORATORY [facility] - 01/08/2025 6:39 AM EDT Warfarin Therapy INR: 2.0-3.0 conventional anticoagulation INR: 2.5-3.5 high intensity anticoagulation Cheng Mcnally DO LAB BLOOD ORDERABLES Final Resu lt Performing Organization Address City/[facility]/ZIP Co de Phone Number LABORATORY [facility] [address] [place] [address] * (ABNORMAL) PT INR (01/07/2025 8:48 AM EDT) Prothrombin Time 18.4(H) 11.6 - 15.2 seconds 01/07/2025 9:37 AM EDT LABORATORY [facility] INR 1.5(H) 0.8 - 1.2 01/07/2025 9:37 AM EDT LABORATORY [facility] Blood Venous blood specimen / Unknown Venipuncture / Unknown 01/07/2025 8:48 AM EDT 01/07/2025 9:15 AM EDT Narrative LABORATORY [facility] - 01/07/2025 9:37 AM EDT Warfarin Therapy INR: 2.0-3.0 conventional anticoagulation INR: 2.5-3.5 high intensity anticoagulation Gibran Vital DO LAB BLOOD ORDERABLES Final Re sult Performing Organization Address City/[facility] Co de Phone Number LABORATORY [facility] [address] [place] [address] * (ABNORMAL) COMPREHENSIVE METABOLIC PANEL (01/07/2025 8:48 AM EDT) BUN 11 6 - 20 mg/dL 01/07/2025 9:44 AM EDT LABORATORY [facility] CREATININE 0.8 0.5 - 1.0 mg/dL 01/07/2025 9:44 AM EDT LABORATORY [facility] EGFR 88 >=60 mL/min 01/07/2025 9:44 AM EDT LABORATORY [facility] Comment:eGFR is calculated b ased on the CKD-EPI 2020 equation. SODIUM 136 135 - 146 mmol/L 01/07/2025 9:44 AM EDT LABORATORY C POTASSIUM 3.8 3.5 - 5.1 mmol/L 01/07/2025 9:44 AM EDT LABORATORY [facility] CHLORIDE 102 98 - 107 mmol/L 01/07/2025 9:44 AM EDT LABORATORY [facility] CO2 23 22 - 32 mmol/L 01/07/2025 9:44 AM EDT LABORATORY [facility] ANION GAP 11 7 - 15 mmol/L 01/07/2025 9:44 AM EDT LABORATORY [facility] GLUCOSE 132(H) 70 - 120 mg/dL 01/07/2025 9:44 AM EDT LABORATORY [facility] Albumin 3.5(L) 3.8 - 5.0 g/dL 01/07/2025 9:44 AM EDT LABORATORY [facility] AST 106(H) 10 - 35 U/L 01/07/2025 9:44 AM EDT LABORATORY [facility] Comment:Results may be false ly elevated due to hemolysis. Alkaline Phosphatase 520(H) 35 - 130 U/L 01/07/2025 9:44 AM EDT LABORATORY [facility] Bilirubin, Total 1.5(H) <=1.2 mg/dL 01/07/2025 9:44 AM EDT LABORATORY [facility] CALCIUM 9.1 8.4 - 10.2 mg/dL 01/07/2025 9:44 AM EDT LABORATORY [facility] Protein 6.5 6.0 - 8.3 g/dL 01/07/2025 9:44 AM EDT LABORATORY [facility] ALT 45(H) 10 - 35 U/L 01/07/2025 9:44 AM EDT LABORATORY [facility] Blood Venous blood specimen / Unknown Venipuncture / Unknown 01/07/2025 8:48 AM EDT 01/07/2025 9:15 AM EDT us Gibran Vital DO LAB BLOOD ORDERABLES Final Re sult LABORATORY [facility] [address] [place] [address] * (ABNORMAL) CBC (01/07/2025 8:48 AM EDT) WBC 5.97 4.00 - 10.80 K/uL 01/07/2025 9:33 AM EDT LABORATORY [facility] RBC 3.33 3.85 - 5.15 M/uL 01/07/2025 9:33 AM EDT LABORATORY [facility] HGB 9.7(L) 12.0 - 15.3 g/dL 01/07/2025 9:33 AM EDT LABORATORY [facility] HCT 32.0(L) 36.0 - 45.2 % 01/07/2025 9:33 AM EDT LABORATORY [facility] MCV 96.1 81.5 - 97.5 fL 01/07/2025 9:33 AM EDT LABORATORY [facility] MCH 29.1 27.0 - 34.0 pg 01/07/2025 9:33 AM EDT LABORATORY [facility] MCHC 30.3 32.0 - 36.0 g/dL 01/07/2025 9:33 AM EDT LABORATORY [facility] RDW 16.2 11.5 - 15.5 % 01/07/2025 9:33 AM EDT LABORATORY [facility] PLT 55(L) 140 - 400 K/uL 01/07/2025 9:33 AM EDT LABORATORY [facility] MPV 13.3 6.6 - 11.1 fL 01/07/2025 9:33 AM EDT LABORATORY [facility] nRBCs 0 <=0 /100 WBCs 01/07/2025 9:33 AM EDT LABORATORY [facility] Blood Venous blood specimen / Unknown Venipuncture / Unknown 01/07/2025 8:48 AM EDT 01/07/2025 9:15 AM EDT us Gibran Vital DO LAB BLOOD ORDERABLES Final Re sult LABORATORY [facility] [address] [place] [address] * XR SHOULDER, 2 OR MORE VIEWS (01/06/2025 9:59 AM EDT) Anatomical Region Laterality Modality Upper Extremity, Shoulder Digita l Radiography 01/06/2025 10:2 6 AM EDT Impressions 01/06/2025 10:23 AM EDT IMPRESSION Lytic lesion in the right scapula at the base of the acromion with pathologic fracture. Narrative 01/06/2025 10:23 AM EDT EXAM XR SHOULDER, 2 OR MORE VIEWS-01/06/2025 9:59 am HISTORY r/o right shoulder bony deformity/ pathology COMPARISON XR SHOULDER, 2 OR MORE VIEWS, ACC: [id number], dated 2024-12-30 14:43:57; CT CHEST WO CONTRAST, ACC: [id number], dated 2025-01-05 12:46:54 TECHNIQUE Four views of the right shoulder were obtained. FINDINGS Lytic lesion in the scapula at the base of the acromion with pathologic fracture. Acromioclavicular and glenohumeral joints are intact. Procedure Note Leandro Hampton MD - 01/06/2025 EXAM XR SHOULDER, 2 OR MORE VIEWS-01/06/2025 9:59 am HISTORY r/o right shoulder bony deformity/ pathology COMPARISON XR SHOULDER, 2 OR MORE VIEWS, ACC: [id number], dated 2024-12-30 14:43:57; CT CHEST WO CONTRAST, ACC: [id number], dated 2025-01-05 12:46:54 TECHNIQUE Four views of the right shoulder were obtained. FINDINGS Lytic lesion in the scapula at the base of the acromion with pathologicfracture. Acromioclavicular and glenohumeral joints are intact. IMPRESSION IMPRESSION Lytic lesion in the right scapula at the base of the acromion withpathologic fracture. [facility] Owen MD RADIOLOGY ([facility]) Final Re sult * NM HEPATOBILIARY SYSTEM (01/06/2025 9:26 AM EDT) Anatomical Region Laterality Modality Abdomen Computed Tomogra phy 01/06/2025 10:1 6 AM EDT Impressions 01/06/2025 10:37 AM EDT IMPRESSION Scintigraphic findings suggestive acute cholecystitis. The critical results were relayed to Dr. Taran Hines via tigertext by William Begum at 1015 on 01/06/2025. Understanding was expressed. I have personally reviewed this examination and agree with the resident/fellow physician's interpretation. Narrative 01/06/2025 10:37 AM EDT EXAM NM HEPATOBILIARY SYSTEM - 01/06/2025 9:26 am HISTORY r/o acute cholecystitis in the setting of hepatic malignancy / pathology COMPARISON US ABDOMEN LIMITED, ACC: [id number], dated 2025-01-06 02:59:09; CT ABD_PELVIS W IV CONTRAST - WO ORAL CONTRAST, ACC: [id number], dated 2025-01-05 22:31:04 TECHNIQUE Following the intravenous administration of 5.1 mCi of Tc-99m mebrofenin (Choletec), dynamic anterior imaging of the right upper quadrant was performed for 60 minutes. Subsequently, 3 mg of intravenous morphine was administered and imaging was continued. FINDINGS Prompt uptake of radiotracer seen throughout the hepatic parenchyma. The central biliary ducts and the common bile duct are visualized. Small bowel activity is seen at 17 minutes. The gallbladder is not seen. Filling and emptying of the a duodenal diverticulum is noted, not gallbladder. Procedure Note Robbi Leyva, - 01/06/2025 EXAM NM HEPATOBILIARY SYSTEM - 01/06/2025 9:26 am HISTORY r/o acute cholecystitis in the setting of hepatic malignancy / pathology COMPARISON US ABDOMEN LIMITED, ACC: [id number], dated 2025-01-06 02:59:09; CT ABD_PELVIS W IV CONTRAST - WO ORAL CONTRAST, ACC: [id number], [id number] 22:31:04 TECHNIQUE Following the intravenous administration of 5.1 mCi of Tc-99m mebrofenin(Choletec), dynamic anterior imaging of the right upper quadrant wasperformed for 60 minutes. Subsequently, 3 mg of intravenous morphine was administered and imagingwas continued. FINDINGS Prompt uptake of radiotracer seen throughout the hepatic parenchyma. Thecentral biliary ducts and the common bile duct are visualized. Smallbowel activity is seen at 17 minutes. The gallbladder is not seen.Filling and emptying of the a duodenal diverticulum is noted, notgallbladder. IMPRESSION IMPRESSION Scintigraphic findings suggestive acute cholecystitis. The critical results were relayed to Dr. Taran Hines via tigertext [facility] at 1015 on 01/06/2025. Understanding was expressed. I have personally reviewed this examination and agree with the resident/fellow physician's interpretation. us Roxanne Owen MD [facility] NUCLEAR MED Final Result * URIC ACID (01/06/2025 5:59 AM EDT) Uric Acid 2.5 2.4 - 5.7 mg/dL 01/06/2025 6:53 AM EDT LABORATORY [facility] Blood Venous blood specimen / Unknown Venipuncture / Unknown 01/06/2025 5:59 AM EDT 01/06/2025 6:08 AM EDT us Roxanne Owen MD LAB BLOOD ORDERABLES Final Resul t Performing Organization Address City/[facility]/ZIP Co de Phone Number LABORATORY [facility] [address] [place] [address] * (ABNORMAL) LD (01/06/2025 5:59 AM EDT) LD 266(H) <=250 U/L 01/06/2025 6:53 AM EDT LABORATORY [facility] Blood Venous blood specimen / Unknown Venipuncture / Unknown 01/06/2025 5:59 AM EDT 01/06/2025 6:08 AM EDT us Roxanne Owen MD LAB BLOOD ORDERABLES Final Resul t Performing Organization Address City/[facility] Co de Phone Number LABORATORY [address] [address] * PROCALCITONIN (01/06/2025 5:59 AM EDT) Procalcitonin 0.07 <0.10 ng/mL 01/06/2025 6:53 AM EDT LABORATORY [facility] Blood Venous blood specimen / Unknown Venipuncture / Unknown 01/06/2025 5:59 AM EDT 01/06/2025 6:08 AM EDT Narrative LABORATORY C - 01/06/2025 6:53 AM EDT Less than 0.5 ng/mL: Low risk for progression to sepsis. Review patients condition for localized infections. 0.5 to 2.0 ng/mL: Intermediate risk for progresion to sepsis. Review underlying conditions. Recommend repeat PCT after 6 hours has elapsed. Greater than 2.0 ng/mL: high risk for progression to sepsis unless other causes are known. us Roxanne Owen MD LAB BLOOD ORDERABLES Final Resul t Performing Organization Address [facility] Co de Phone Number LABORATORY [facility] [address] [place] [address] * PHOSPHORUS (01/06/2025 5:59 AM EDT) Phosphorus 2.9 2.5 - 4.8 mg/dL 01/06/2025 6:53 AM EDT LABORATORY [facility] Blood Venous blood specimen / Unknown Venipuncture / Unknown 01/06/2025 5:59 AM EDT 01/06/2025 6:08 AM EDT us Roxanne Owen MD LAB BLOOD ORDERABLES Final Resul t Performing Organization Address [facility] de Phone Number LABORATORY [facility] [address] [place] [address] * MAGNESIUM (01/06/2025 5:59 AM EDT) Magnesium 1.9 1.5 - 2.6 mg/dL 01/06/2025 6:53 AM EDT LABORATORY [facility] Blood Venous blood specimen / Unknown Venipuncture / Unknown 01/06/2025 5:59 AM EDT 01/06/2025 6:08 AM EDT us Roxanne Owen MD LAB BLOOD ORDERABLES Final Resul t Performing Organization Address [facility] de Phone Number LABORATORY [facility] [address] [place] [address] * (ABNORMAL) CBC (01/06/2025 5:59 AM EDT) WBC 6.40 4.00 - 10.80 K/uL 01/06/2025 6:44 AM EDT LABORATORY [facility] RBC 3.65 3.85 - 5.15 M/uL 01/06/2025 6:44 AM EDT LABORATORY [facility] HGB 10.6(L) 12.0 - 15.3 g/dL 01/06/2025 6:44 AM EDT LABORATORY [facility] HCT 34.3(L) 36.0 - 45.2 % 01/06/2025 6:44 AM EDT LABORATORY [facility] MCV 94.0 81.5 - 97.5 fL 01/06/2025 6:44 AM EDT LABORATORY [facility] MCH 29.0 27.0 - 34.0 pg 01/06/2025 6:44 AM EDT LABORATORY [facility] MCHC 30.9 32.0 - 36.0 g/dL 01/06/2025 6:44 AM EDT LABORATORY [facility] RDW 16.0 11.5 - 15.5 % 01/06/2025 6:44 AM EDT LABORATORY [facility] PLT 70(L) 140 - 400 K/uL 01/06/2025 6:44 AM EDT LABORATORY [facility] MPV 12.7 6.6 - 11.1 fL 01/06/2025 6:44 AM EDT LABORATORY [facility] nRBCs 0 <=0 /100 WBCs 01/06/2025 6:44 AM EDT LABORATORY [facility] Blood Venous blood specimen / Unknown Venipuncture / Unknown 01/06/2025 5:59 AM EDT 01/06/2025 6:08 AM EDT us Roxanne Owen MD LAB BLOOD ORDERABLES Final Resul t LABORATORY [facility] [address] [place] [address] * (ABNORMAL) COMPREHENSIVE METABOLIC PANEL (01/06/2025 5:59 AM EDT) BUN 8 6 - 20 mg/dL 01/06/2025 6:53 AM EDT LABORATORY [facility] CREATININE 0.5 0.5 - 1.0 mg/dL 01/06/2025 6:53 AM EDT LABORATORY [facility] EGFR >90 >=60 mL/min 01/06/2025 6:53 AM EDT LABORATORY [facility] Comment:eGFR is calculated b ased on the CKD-EPI 2020 equation. SODIUM 141 135 - 146 mmol/L 01/06/2025 6:53 AM EDT LABORATORY [facility] POTASSIUM 3.4(L) 3.5 - 5.1 mmol/L 01/06/2025 6:53 AM EDT LABORATORY [facility] CHLORIDE 106 98 - 107 mmol/L 01/06/2025 6:53 AM EDT LABORATORY [facility] CO2 23 22 - 32 mmol/L 01/06/2025 6:53 AM EDT LABORATORY [facility] ANION GAP 12 7 - 15 mmol/L 01/06/2025 6:53 AM EDT LABORATORY [facility] GLUCOSE 150(H) 70 - 120 mg/dL 01/06/2025 6:53 AM EDT LABORATORY [facility] Albumin 3.7(L) 3.8 - 5.0 g/dL 01/06/2025 6:53 AM EDT LABORATORY [facility] AST 127(H) 10 - 35 U/L 01/06/2025 6:53 AM EDT LABORATORY [facility] Alkaline Phosphatase 577(H) 35 - 130 U/L 01/06/2025 6:53 AM EDT LABORATORY [facility] Bilirubin, Total 1.2 <=1.2 mg/dL 01/06/2025 6:53 AM EDT LABORATORY [facility] CALCIUM 8.7 8.4 - 10.2 mg/dL 01/06/2025 6:53 AM EDT LABORATORY [facility] Protein 6.7 6.0 - 8.3 g/dL 01/06/2025 6:53 AM EDT LABORATORY [facility] ALT 44(H) 10 - 35 U/L 01/06/2025 6:53 AM EDT LABORATORY [facility] Blood Venous blood specimen / Unknown Venipuncture / Unknown 01/06/2025 5:59 AM EDT 01/06/2025 6:08 AM EDT us Roxanne Owen MD LAB BLOOD ORDERABLES Final Resul t LABORATORY [facility] [place] [address] [place] [address] * (ABNORMAL) PT INR (01/06/2025 5:59 AM EDT) Prothrombin Time 16.9(H) 11.6 - 15.2 seconds 01/06/2025 6:46 AM EDT LABORATORY [facility] INR 1.4(H) 0.8 - 1.2 01/06/2025 6:46 AM EDT LABORATORY [facility] Blood Venous blood specimen / Unknown Venipuncture / Unknown 01/06/2025 5:59 AM EDT 01/06/2025 6:08 AM EDT Narrative LABORATORY [facility] [place] - 01/06/2025 6:46 AM EDT Warfarin Therapy INR: 2.0-3.0 conventional anticoagulation INR: 2.5-3.5 high intensity anticoagulation us Roxanne Owen MD LAB BLOOD ORDERABLES Final Resul t LABORATORY [facility] [place] [address] [place] [address] * US ABDOMEN LIMITED (01/06/2025 3:24 AM EDT) Anatomical Region Laterality Modality Abdomen, Body Ultrasound 01/06/2025 4:04 AM EDT Impressions 01/06/2025 4:02 AM EDT IMPRESSION 1. Cholelithiasis and borderline increased gallbladder wall thickness. No pericholecystic fluid. Negative sonographic sign. Findings are equivocal for acute cholecystitis and may be related to cirrhosis however consider correlation with HIDA scan if there is persistent concern for acute cholecystitis. 2. Cirrhosis. 2.4 cm hypoechoic mass in the right hepatic lobe consistent with known LI-RADS 5 lesion. Narrative 01/06/2025 4:02 AM EDT EXAM US ABDOMEN LIMITED-01/06/2025 3:24 am HISTORY concern for cholecystitis TECHNIQUE Sonogram of the right upper quadrant. COMPARISON CT ABD_PELVIS W IV CONTRAST - WO ORAL CONTRAST, ACC: [id number], dated 2025-01-05 22:31:04; MRI LIVER W WO CONTRAST, ACC: [id number], dated 2024-09-27 09:41:29 FINDINGS LIVER: Nodular surface contour and heterogenous echotexture consistent with cirrhosis. 2.4 x 2.0 x 1.3 cm hypoechoic mass in the right hepatic lobe. No focal lesion. BILE DUCTS: No intrahepatic or extrahepatic duct dilatation. The common bile duct measures 5 mm. GALLBLADDER: Cholelithiasis an borderline increased gallbladder wall thickness. No pericholecystic fluid. Negative sonographic sign. There is wall calcifications at the gallbladder fundus. PANCREAS: Pancreatic duct is at the upper limits of normal in caliber measuring up to 3 mm. RIGHT KIDNEY: 10.8 cm in length. No hydronephrosis, shadowing calculi, or focal lesion. OTHER: No ascites noted.. Procedure Note Mita Raines MD - 01/06/2025 EXAM US ABDOMEN LIMITED-01/06/2025 3:24 am HISTORY concern for cholecystitis TECHNIQUE Sonogram of the right upper quadrant. COMPARISON CT ABD_PELVIS W IV CONTRAST - WO ORAL CONTRAST, ACC: [id number], [id number] 22:31:04; MRI LIVER W WO CONTRAST, ACC: [id number], dated 2024-09-27 09:41:29 FINDINGS LIVER: Nodular surface contour and heterogenous echotexture consistentwith cirrhosis. 2.4 x 2.0 x 1.3 cm hypoechoic mass in the right hepaticlobe. No focal lesion. BILE DUCTS: No intrahepatic or extrahepatic duct dilatation. The commonbile duct measures 5 mm. GALLBLADDER: Cholelithiasis an borderline increased gallbladder wallthickness. No pericholecystic fluid. Negative sonographic sign. Thereis wall calcifications at the gallbladder fundus. PANCREAS: Pancreatic duct is at the upper limits of normal in calibermeasuring up to 3 mm. RIGHT KIDNEY: 10.8 cm in length. No hydronephrosis, shadowing calculi, orfocal lesion. OTHER: No ascites noted.. IMPRESSION IMPRESSION 1. Cholelithiasis and borderline increased gallbladder wall thickness. Nopericholecystic fluid. Negative sonographic sign. Findings are equivocalfor acute cholecystitis and may be related to cirrhosis however considercorrelation with HIDA scan if there is persistent concern for acutecholecystitis. 2. Cirrhosis. 2.4 cm hypoechoic mass in the right hepatic lobe consistentwith known LI-RADS 5 lesion. [facility] ULTRASOUND Final Result * (ABNORMAL) ALPHA-FETOPROTEIN TUMOR MARKER (01/05/2025 8:26 PM EDT) Alpha-Fetoprot ein Tumor Marker 10,274.0(H ) 0.0 - 8.3 ng/mL 01/06/2025 12:38 PM EDT [facility] [place] Blood Venous blood specimen / Unknown Venipuncture / Unknown 01/05/2025 8:26 PM EDT 01/05/2025 8:36 PM EDT Roxanne Owen MD LAB BLOOD ORDERABLES Final Resul t [facility] [place] [address] [place] [address] documented in this encounter Visit Diagnoses Diagnosis Right shoulder pain, unspecified chronicity- Primary Wheezing Limited range of motion (ROM) of shoulder Clostridium difficile enteritis Intestinal infection due to clostridium difficile Hepatocellular carcinoma (HCC) Malignant neoplasm of liver, primary 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 difficile diarrhea Intestinal infection due to clostridium difficile Mood disorder (HCC) Unspecified episodic mood disorder Elevated transaminase level Nonspecific elevation of levels of transaminase or lactic acid dehydrogenase (LDH) Cholelithiasis Calculus of gallbladder without mention of cholecystitis or obstruction Other cirrhosis of liver (HCC) Generalized anxiety disorder Portal hypertension (HCC) Portal hypertension Thrombocytopenia (HCC) Thrombocytopenia, unspecified Major depressive disorder with single episode HTN, goal below 130/80 Unspecified essential hypertension HCC (hepatocellular carcinoma) (HCC) Malignant neoplasm of liver, primary Pleural mass Swelling, mass, or lump in chest 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) Palliative care encounter Encounter for palliative care Pain from bone metastases (HCC) Decompensated HCV cirrhosis (HCC) Chronic hepatitis C without mention of hepatic coma 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 documented in this encounter Administered Medications Inactive Administered Medications - up to 3 most recent administrations Medication Order MAR Action Action Date Dose Rate Site Albuterol Sulfate (Proventil) (2.5 MG/3ML) 0.083% inhalation solution 2.5 mg 2.5 mg, Nebulizer, Q4H PRN Dyspnea, wheezing, Starting on Fri01/06/25 at 0630, Until Fri01/14/25 at 2038 Given 01/06/2025 12:24 PM EDT 2.5 mg albuterol-ipratropium (Duoneb) inhalation solution 3 mL 3 mL, Nebulizer, RESPQID, First dose (after last modification) on Fri01/06/25 at 0700, Until Discontinued, 3 mL = 0.5 mg ipratropium/ 2.5 mg albuterol Given 01/09/2025 8:13 AM EDT 3 mL Given 01/08/2025 7:48 PM EDT 3 mL Given 01/08/2025 4:20 PM EDT 3 mL albuterol-ipratropium (Duoneb) inhalation solution 3 mL 3 mL, Nebulizer, BID (.AM/PM), First dose (after last modification) on Fri01/09/25 at 2100, Until Discontinued, 3 mL = 0.5 mg ipratropium/ 2.5 mg albuterol Given 01/10/2025 7:50 AM EDT 3 mL Given By 01/09/2025 8:19 PM EDT 3 mL buffered lidocaine 1 % inj Intradermal, ONCE PRN INTRA PROCEDURE, Starting on Fri01/12/25 at 0914, Until Fri01/12/25 at 0914, Intra-Op Given 01/12/2025 9:14 AM EDT 10 mL Other-Specify Carvedilol (Coreg) tab 6.25 mg 6.25 mg, Oral, BID (AM/PM MEALS), First dose on Fri01/06/25 at 0800, Until Discontinued, Hold for HR less than 60 or SBP below 100 and notify service if dose is held MUST BE GIVEN WITH MEAL Given 01/14/2025 7:57 AM EDT 6.25 mg Given 01/13/2025 5:15 PM EDT 6.25 mg Given 01/13/2025 8:59 AM EDT 6.25 mg Cholestyramine Light (Prevalite) oral powder 4 g 4 g, Oral, Q12H (1000,2200), First dose on Fri01/11/25 at 2200, Until Discontinued, Cholestyramine resin may bind other drugs when given concurrently. Patient should take other drugs at least one (1) hour before or 4-6 hours after cholystyramine to avoid impeding their absorption. Given 01/13/2025 8:58 AM EDT 4 g Given 01/12/2025 8:23 PM EDT 4 g Given 01/12/2025 12:54 PM EDT 4 g diphenhydrAMINE (Benadryl) inj 25 mg 25 mg, IV Push, ONCE, On [place] 01/06/25 at 0700, For 1 dose Given 01/06/2025 10:02 AM EDT 25 mg Enoxaparin (Lovenox) inj 40 mg 40 mg, Subcutaneous, Daily(AM), First dose on Rica 01/06/25 at 0900, Until Discontinued, If patient is on warfarin, inform provider if daily INR value is 2 or greater! Given 01/10/2025 8:43 AM EDT 40 mg Abdom en Left Upper Given 01/09/2025 9:10 AM EDT 40 mg Ab domen Right Upper Given 01/08/2025 8:57 AM EDT 40 mg Ab domen Right Lower Enoxaparin (Lovenox) inj 40 mg 40 mg, Subcutaneous, Daily(AM), First dose (after last modification) on 01/12/25 at 0900, Until Discontinued, If patient is on warfarin, inform provider if daily INR value is 2 or greater! Given 01/14/2025 7:59 AM EDT 40 mg Abdom en Right Lower Given 01/13/2025 9:00 AM EDT 40 mg Ab domen Right Lower Given 01/12/2025 10:55 AM EDT 40 mg A bdomen Left Lower fentaNYL (PF) inj ONCE PRN INTRA PROCEDURE, Starting on Fri01/12/25 at 0906, Until Fri01/12/25 at 0912, Intra-Op Given 01/12/2025 9:12 AM EDT 50 mcg Given 01/12/2025 9:06 AM EDT 50 mcg Fidaxomicin (Dificid) tab 200 mg 200 mg, Oral, BID (.AM/PM), First dose on [place] 01/06/25 at 0900, Last dose on 01/15/25 at 2100, For 10 days Given 01/14/2025 7:58 AM EDT 200 mg Given 01/13/2025 9:31 PM EDT 200 mg Given 01/13/2025 8:59 AM EDT 200 mg Furosemide (Lasix) inj 40 mg 40 mg, IV Push, ONCE, On Fri01/10/25 at 1000, For 1 dose Given 01/10/2025 9:57 AM EDT 40 mg Furosemide (Lasix) inj 40 mg 40 mg, IV Push, ONCE, On Fri01/11/25 at 1030, For 1 dose Given 01/11/2025 10:34 AM EDT 40 mg Furosemide (Lasix) inj 40 mg 40 mg, IV Push, ONCE, On Fri01/11/25 at 1530, For 1 dose Given 01/11/2025 3:39 PM EDT 40 mg Furosemide (Lasix) inj 40 mg 40 mg, IV Push, ONCE, On Fri01/12/25 at 0845, For 1 dose Given 01/12/2025 11:05 AM EDT 40 mg Gabapentin (Neurontin) cap 100 mg 100 mg, Oral, TID(AM/NOON/HS), First dose on Fri01/06/25 at 0600, Until Discontinued Given 01/14/2025 11:52 AM EDT 100 mg Given 01/14/2025 5:28 AM EDT 100 mg Given 01/13/2025 9:32 PM EDT 100 mg gadobutrol (Gadavist) inj 8.6 mL 8.6 mL (0.1 mL/kg 86 kg), Intravenous, ONCE, On Fri01/12/25 at 0300, For 1 dose, Radiology Medication Routing (Non-IR) Given 01/12/2025 3:00 AM EDT 8 mL Iopamidol (Isovue 370) inj 80 mL 80 mL, Intravenous, ONCE, On Fri01/10/25 at 2315, For 1 dose, Radiology Medication Routing (Non-IR) Given 01/10/2025 11:15 PM EDT 80 mL keTORolac (Toradol) 30 MG/ML inj 15 mg 15 mg, IV Push, Q6H PRN Pain, Mild, Starting on Fri01/06/25 at 0527, Until Fri01/07/25 at 2359, For 3 doses Given 01/07/2025 5:23 AM EDT 15 mg Lidocaine (Aspercreme) 4 % patch 1 Patch 1 Patch, Transdermal, Daily(AM), First dose on Fri01/12/25 at 1030, Until Discontinued, Apply patch for 12 hours then remove for 12 hours! Remove any Lidocaine patches the patient may currently be wearing prior to applying the new patch Patch Applied 01/14/2025 7:58 AM EDT 1 Patch Arm Right Upper Patch Applied 01/13/2025 8:58 AM EDT 1 Patch Shoulder Right Patch Applied 01/12/2025 10:55 AM EDT 1 Patch Shoulder Right midazolam (Versed) 2 MG/2ML inj ONCE PRN INTRA PROCEDURE, Starting on Fri01/12/25 at 0906, Until Fri01/12/25 at 0912, Intra-Op Given 01/12/2025 9:12 AM EDT 1 mg Given 01/12/2025 9:06 AM EDT 1 mg Morphine Sulfate (Msir) tab 7.5 mg 7.5 mg, Oral, Q6H, First dose on 01/08/25 at 1300, Until Discontinued, Hold for respiratory depression/somnolence/patient preference. Given 01/08/2025 2:40 PM EDT 7.5 mg Morphine Sulfate (Msir) tab 7.5 mg 7.5 mg, Oral, Q6H, First dose (after last modification) on 01/08/25 at 2100, Until Discontinued, Hold for respiratory depression/somnolence/patient preference. Given 01/14/2025 11:52 AM EDT 7 .5 mg Given 01/14/2025 5:28 AM EDT 7.5 mg Given 01/14/2025 12:20 AM EDT 7.5 mg Morphine Sulfate (Msir) tab 7.5 mg 7.5 mg, Oral, Q4H PRN Pain, Moderate, Pain, Severe, Starting on Fri01/13/25 at 1449, Until Fri01/14/25 at 2037 Morphine Sulfate (PF) inj 3 mg 3 mg, IV Push, ONCE, On [place] 01/06/25 at 0900, For 1 dose, Given in nuclear medicine Given 01/06/2025 8:49 AM EDT 3 mg Morphine Sulfate (PF) inj 4 mg 4 mg, Intravenous, ONCE, On Fri01/06/25 at 0515, For 1 dose Given 01/06/2025 4:52 AM EDT 4 mg Morphine Sulfate (PF) inj 4 mg 4 mg, IV Push, Q4H PRN Pain, Severe, Starting on Fri01/06/25 at 0517, Until Fri01/07/25 at 0516, For 1 day Given 01/06/2025 6:49 PM EDT 4 mg Given 01/06/2025 2:43 PM EDT 4 mg Given 01/06/2025 10:33 AM EDT 4 mg Morphine Sulfate (PF) inj 4 mg 4 mg, IV Push, Q4H PRN Pain, Severe, Starting on Fri01/07/25 at 1504, Until Fri01/08/25 at 1503, For 1 day Given 01/08/2025 9:47 AM EDT 4 mg Given 01/07/2025 8:33 PM EDT 4 mg morphine sulfate inj 2 mg 2 mg, IV Push, Q4H PRN Pain, Moderate, Starting on Fri01/06/25 at 0527, Until Fri01/13/25 at 1449 Given 01/12/2025 2:47 PM EDT 2 mg Given 01/10/2025 10:19 AM EDT 2 mg Given 01/09/2025 2:18 AM EDT 2 mg multivit w/min (Therapeutic-M) 1 Tablet 1 Tablet, Oral, Q24H, First dose on Fri01/06/25 at 0600, Until Discontinued Given 01/14/2025 11:52 AM EDT 1 Table t Given 01/13/2025 11:07 AM EDT 1 Tablet Given 01/12/2025 10:58 AM EDT 1 Tablet naloxone (Narcan) 0.4 MG/ML inj 0.4 mg 0.4 mg, IV Push, PRN Other, RR <8, somnolence, respiratory depression, Starting on Fri01/08/25 at 1233, Until Fri01/14/25 at 2038 NSS 0.9% 500 mL bolus infusion Intravenous, at 500 mL/hr Administer over 60 Minutes, Administer entire volume within 60 minutes or less., ONCE, 1 dose, On Fri01/06/25 at 0645 Restarted 01/06/2025 6:49 AM EDT 500 mL/hr New Bag 01/06/2025 6:41 AM EDT 500 mL 500 mL/hr ondansetron (Zofran) inj 4 mg 4 mg, IV Push, Q6H PRN Nausea, Vomiting, Starting on Fri01/06/25 at 0525, Until Fri01/14/25 at 2038 Given 01/11/2025 9:41 PM EDT 4 mg Given 01/06/2025 6:54 PM EDT 4 mg Given 01/06/2025 6:22 AM EDT 4 mg oxygen GAS Inhalation, OXYGEN, First dose on Rica 01/06/25 at 0300, Until Discontinued, Device/Managed by: Low Flow Device, Goal SPO2 (%): 91-95, Starting Device: Nasal Cannula, Initial Flow Rate (LPM): 2, Lowest Support: Nasal Cannula: Flow 0-6 LPM. Titrate up/down by 1 LPM., Higher Support: Non-Rebreather (NRB) Mask: Minimum of 10 LPM. Titrate to maintain bag inflation., Titration Interval: Q2 minutes and as needed., Notify Provider: For sudden DECREASE in resting SPO2 to less than 85% and when escalating delivery device., Wean patient off Oxygen when the oxygen saturation is greater than or equal to 93% Oxygen On 01/11/2025 4:00 PM EDT Oxygen On 01/10/2025 3:13 PM EDT Oxygen On 01/09/2025 7:18 AM EDT 1 L/min(Oxygen) Piperacillin-Tazobactam (Zosyn) 4.5 g in 100 mL NSS ivpb (FOUR hour infusion) IV Piggyback, 4.5 g, Q8HNOW, 15 doses, First dose on Fri01/06/25 at 1830, Last dose on Fri01/11/25 at 1030, Administer over 4 Hours, at 26.25 mL/hr New Bag 01/11/2025 9:53 AM EDT 4.5 g 26.25 mL/hr New Bag 01/11/2025 2:50 AM EDT 4.5 g 26.25 mL/hr New Bag 01/10/2025 6:31 PM EDT 4.5 g 26.25 mL/hr Piperacillin-Tazobactam (Zosyn) 4.5 g in 100 mL NSS ivpb (FOUR hour infusion) IV Piggyback, 4.5 g, Q8HNOW, 1 dose, First dose (after last modification) on Fri01/11/25 at 1800, Administer over 4 Hours, at 26.25 mL/hr New Bag 01/11/2025 5:59 PM EDT 4.5 g 26.25 mL/hr Piperacillin-Tazobactam (Zosyn) 4.5 g in 100 mL NSS ivpb (HALF hour infusion) IV Piggyback, 4.5 g, ONCE, 1 dose, On [place] 01/06/25 at 1400, Administer over 30 Minutes New Bag 01/06/2025 1:58 PM EDT 4.5 g 210 mL/hr potassium chloride ER tab 30 mEq 30 mEq, Oral, Q2H, First dose on 01/08/25 at 0800, Last dose on 01/08/25 at 1000, For 2 doses, This med should NOT be Crushed or Chewed Given 01/08/2025 10:36 AM EDT 30 mEq Given 01/08/2025 8:51 AM EDT 30 mEq potassium chloride ER tab 40 mEq 40 mEq, Oral, ONCE, On [place] 01/06/25 at 0800, For 1 dose, This med should NOT be Crushed or Chewed Given 01/06/2025 10:01 AM EDT 40 mEq potassium chloride ER tab 40 mEq 40 mEq, Oral, Q2H, First dose on Fri01/10/25 at 0800, Last dose on Fri01/10/25 at 1000, For 2 doses, This med should NOT be Crushed or Chewed Given 01/10/2025 9:58 AM EDT 40 mEq Given 01/10/2025 8:42 AM EDT 40 mEq potassium chloride ER tab 40 mEq 40 mEq, Oral, ONCE, On Fri01/11/25 at 1130, For 1 dose, This med should NOT be Crushed or Chewed Given 01/11/2025 12:24 PM EDT 40 mEq potassium chloride ER tab 40 mEq 40 mEq, Oral, ONCE, On Fri01/11/25 at 2115, For 1 dose, This med should NOT be Crushed or Chewed Given 01/11/2025 8:49 PM EDT 40 mEq potassium chloride ER tab 40 mEq 40 mEq, Oral, ONCE, On [place] 01/13/25 at 0815, For 1 dose, This med should NOT be Crushed or Chewed Given 01/13/2025 8:59 AM EDT 40 mEq QUEtiapine (SEROquel) tab 25 mg 25 mg, Oral, HS, First dose on Fri01/06/25 at 2200, Until Discontinued Given 01/13/2025 9:32 PM EDT 25 mg Given 01/12/2025 8:23 PM EDT 25 mg Given 01/11/2025 8:50 PM EDT 25 mg Saline (Nasogel) nasal gel Each Nostril, PRN Other, dryness, Starting on Fri01/10/25 at 1103, Until Fri01/14/25 at 2037, Apply small amount to inside of nostril Given 01/10/2025 6:17 PM EDT sodium chloride 0.9 % flush/inj 10 mL 10 mL, IV Push, ONCE, On Fri01/06/25 at 0745, For 1 dose, Do not flush if lock, PICC, or central line not in place; IV infusing or unable to flush., Radiology Medication Routing (Non-IR) Given 01/06/2025 7:15 AM EDT 10 mL sodium chloride 0.9 % flush/inj 3 mL 3 mL, IV Push, PRN Other, Line Patency, Starting on Fri01/06/25 at 0524, Until Fri01/14/25 at 2037, Do not flush if lock, PICC, or central line not in place, IV infusing or unable to flush Technetium Tc 99m Mebrofenin (Choletec) inj 5 millicurie 5 millicurie, Intravenous, ONCE, On Fri01/06/25 at 0745, For 1 dose, Radiology Medication Routing (Non-IR) Given 01/06/2025 7:15 AM EDT 5.1 millicuries venlafaxine XR (Effexor XR) cap 225 mg 225 mg, Oral, Daily(AM), First dose on Fri01/06/25 at 0900, Until Discontinued, This med should NOT be Crushed or Chewed but may be opened and contents administered in a spoonful of applesauce or pudding without chewing or crushing. Given 01/14/2025 7:57 AM EDT 225 mg Given 01/13/2025 8:59 AM EDT 225 mg Given 01/12/2025 11:13 AM EDT 225 mg documented in this encounter Active and Recently Administered Medications Times are shown in EDT. Scheduled Medication Order 01/12/2025 01/13/2025 01/14/2025 Carvedilol (Coreg) tab 6.25 mg 6.25 mg, Oral, BID (AM/PM MEALS), First dose on Fri01/06/25 at 0800, Until Discontinued, Hold for HR less than 60 or SBP below 100 and notify service if dose is held MUST BE GIVEN WITH MEAL 1058 (Given - Provider: SN Alis - Comment: pt. in procedure when originally scheduled)1704 (Given - Provider: SN Rob) 0859 (Given - Provider: SN Alis)1715 (Given - Provider: SN George) 0757 (Given - Provider: Sandy Chapa RN) Cholestyramine Light (Prevalite) oral powder 4 g 4 g, Oral, Q12H (1000,2200), First dose on Fri01/11/25 at 2200, Until Discontinued, Cholestyramine resin may bind other drugs when given concurrently. Patient should take other drugs at least one (1) hour before or 4-6 hours after cholystyramine to avoid impeding their absorption. 1254 (Given - Provider: SN Alis - Comment: per pharmacist, was instucted to hold for hour)2022 (Given - Provider: Tiffanie Soni RN) 0858 (Given - Provider: SN Alis)2200 (Not Given - Provider: Kassidy Huston LPN - Reason: Refused-Notify Provider) 1000 (Not Given - Provider: Sandy Chapa RN - Reason: Refused-Notify Provider - Comment: DR Terrell johnson) Enoxaparin (Lovenox) inj 40 mg 40 mg, Subcutaneous, Daily(AM), First dose (after last modification) on Fri01/12/25 at 0900, Until Discontinued, If patient is on warfarin, inform provider if daily INR value is 2 or greater! 1055 (Given - Provider: SN Alis) 0900 (Given - Provider: SN Alis) 0759 (Given - Provider: Sandy Chapa RN) Fidaxomicin (Dificid) tab 200 mg 200 mg, Oral, BID (.AM/PM), First dose on Fri01/06/25 at 0900, Last dose on Fri01/15/25 at 2100, For 10 days 1113 (Given - Provider: SN Alis)2021 (Given - Provider: Tiffanie Soni, CAREY) 0859 (Given - Provider: SN Alis)213 (Given - Provider: SN George) 0758 (Given - Provider: Sandy Chapa, CAREY) Furosemide (Lasix) inj 40 mg (COMPLETED) 40 mg, IV Push, ONCE, On Fri01/12/25 at 0845, For 1 dose 1105 (Given - Provider: SN Alis) Gabapentin (Neurontin) cap 100 mg 100 mg, Oral, TID(AM/NOON/HS), First dose on Fri01/06/25 at 0600, Until Discontinued 0523 (Given - Provider: Michelle Nguyen RN)1056 (Given - Provider: SN Alis)2022 (Given - Provider: Tiffanie Soni RN) 0605 (Given - Provider: Tiffanie Soni, CAREY)1107 (Given - Provider: Purnima Jackson RN)213 (Given - Provider: SN George) 0528 (Given - Provider: Kassidy Huston LPN)1152 (Given - Provider: Sandy Chapa, CAREY) gadobutrol (Gadavist) inj 8.6 mL (COMPLETED) 8.6 mL (0.1 mL/kg 86 kg), Intravenous, ONCE, On Fri01/12/25 at 0300, For 1 dose, Radiology Medication Routing (Non-IR) 0300 (Given - Provider: MARIELOS Wynn) Lidocaine (Aspercreme) 4 % patch 1 Patch 1 Patch, Transdermal, Daily(AM), First dose on Fri01/12/25 at 1030, Until Discontinued, Apply patch for 12 hours then remove for 12 hours! Remove any Lidocaine patches the patient may currently be wearing prior to applying the new patch 105 (Patch Applied - Provider: SN Alis)2027 (Patch Removed - Provider: Tiffanie Soni RN) 0858 (Patch Applied - Provider: SN Alis)2058 (Patch Removed - Provider: Kassidy Huston LPN) 0758 (Patch Applied - Provider: Sandy Chapa, CAREY)1638 (Due: Patch Removed - Provider: Automated, Discontinue Physician - Comment: Time automatically adjusted from order being discontinued) Morphine Sulfate (Msir) tab 7.5 mg 7.5 mg, Oral, Q6H, First dose (after last modification) on 01/08/25 at 2100, Until Discontinued, Hold for respiratory depression/somnolence/pa tient preference. 0523 (Given - Provider: Michelle Nguyen RN)1050 (Given - Provider: Santana Lyn RN - Comment: Cheng Mcnally MD cleared nursing to give early)1703 (Given - Provider: SN Rob)2342 (Given - Provider: Tiffanie Soni RN) 0604 (Given - Provider: Tiffanie Soni RN)1324 (Given - Provider: Purnima Jackson RN)1718 (Given - Provider: Purnima Jackson RN) 0020 (Given - Provider: Luba Mckeon RN)0528 (Given - Provider: Kassidy Huston LPN)1152 (Given - Provider: Sandy Chapa, CAREY) multivit w/min (Therapeutic-M) 1 Tablet 1 Tablet, Oral, Q24H, First dose on [place] 01/06/25 at 0600, Until Discontinued 1058 (Given - Provider: SN Alis) 1107 (Given - Provider: Purnima Jackson RN) 1152 (Given - Provider: Sandy Chapa, CAREY) oxygen GAS Inhalation, OXYGEN, First dose on [place] 01/06/25 at 0300, Until Discontinued, Device/Managed by: Low Flow Device, Goal SPO2 (%): 91-95, Starting Device: Nasal Cannula, Initial Flow Rate (LPM): 2, Lowest Support: Nasal Cannula: Flow 0-6 LPM. Titrate up/down by 1 LPM., Higher Support: Non-Rebreather (NRB) Mask: Minimum of 10 LPM. Titrate to maintain bag inflation., Titration Interval: Q2 minutes and as needed., Notify Provider: For sudden DECREASE in resting SPO2 to less than 85% and when escalating delivery device., Wean patient off Oxygen when the oxygen saturation is greater than or equal to 93% 0000 (Oxygen Off - Provider: Michelle Nguyen RN)0800 (Oxygen Off - Provider: Santana Lyn RN)1600 (Oxygen Off - Provider: Santana Lyn RN) 0000 (Oxygen Off - Provider: Tiffanie Soni RN)0800 (Oxygen Off - Provider: Purnima Jackson RN)1600 (Oxygen Off - Provider: Purnima Jackson RN) 0000 (Oxygen Off - Provider: Kassidy Huston LPN)0800 (Oxygen Off - Provider: Sandy Chapa, CAREY)1600 (Due) potassium chloride ER tab 40 mEq (COMPLETED) 40 mEq, Oral, ONCE, On [place] 01/13/25 at 0815, For 1 dose, This med should NOT be Crushed or Chewed 0859 (Given - Provider: SN Alis) QUEtiapine (SEROquel) tab 25 mg 25 mg, Oral, HS, First dose on Fri01/06/25 at 2200, Until Discontinued 2022 (Given - Provider: Tiffanie Soni RN) 2131 (Given - Provider: SN George) venlafaxine XR (Effexor XR) cap 225 mg 225 mg, Oral, Daily(AM), First dose on Fri01/06/25 at 0900, Until Discontinued, This med should NOT be Crushed or Chewed but may be opened and contents administered in a spoonful of applesauce or pudding without chewing or crushing. 1113 (Given - Provider: SN Alis) 0859 (Given - Provider: SN Alis) 0757 (Given - Provider: Sandy Chapa, CAREY) PRN Medication Order 01/12/2025 01/13/2025 01/14/2025 Albuterol Sulfate (Proventil) (2.5 MG/3ML) 0.083% inhalation solution 2.5 mg 2.5 mg, Nebulizer, Q4H PRN Dyspnea, wheezing, Starting on [place] 01/06/25 at 0630, Until Fri01/14/25 at 2037 buffered lidocaine 1 % inj (COMPLETED) Intradermal, ONCE PRN INTRA PROCEDURE, Starting on Fri01/12/25 at 0914, Until Fri01/12/25 at 0914, Intra-Op 0914 (Given - Provider: Dov Dalton, DO - Comment: right shoulder) fentaNYL (PF) inj (COMPLETED) ONCE PRN INTRA PROCEDURE, Starting on Fri01/12/25 at 0906, Until Fri01/12/25 at 0912, Intra-Op 09 (Given - Provider: Cata Pineda, CAREY)911 (Given - Provider: Cata Pineda, CAREY) midazolam (Versed) 2 MG/2ML inj (COMPLETED) ONCE PRN INTRA PROCEDURE, Starting on Fri01/12/25 at 0906, Until Fri01/12/25 at 0912, Intra-Op 905 (Given - Provider: Cata Pineda RN)911 (Given - Provider: Cata Pineda, CAREY) Morphine Sulfate (Msir) tab 7.5 mg 7.5 mg, Oral, Q4H PRN Pain, Moderate, Pain, Severe, Starting on [place] 01/13/25 at 1449, Until Fri01/14/25 at 2037 morphine sulfate inj 2 mg (CANCELED) 2 mg, IV Push, Q4H PRN Pain, Moderate, Starting on [place] 01/06/25 at 0527, Until [place] 01/13/25 at 1449 1447 (Given - Provider: Santana Lyn, CAREY) naloxone (Narcan) 0.4 MG/ML inj 0.4 mg 0.4 mg, IV Push, PRN Other, RR <8, somnolence, respiratory depression, Starting on 01/08/25 at 1233, Until Fri01/14/25 at 2037 ondansetron (Zofran) inj 4 mg 4 mg, IV Push, Q6H PRN Nausea, Vomiting, Starting on Rica 01/06/25 at 0525, Until Fri01/14/25 at 2037 Saline (Nasogel) nasal gel Each Nostril, PRN Other, dryness, Starting on 01/10/25 at 1103, Until Fri01/14/25 at 2037, Apply small amount to inside of nostril sodium chloride 0.9 % flush/inj 3 mL 3 mL, IV Push, PRN Other, Line Patency, Starting on Rica 01/06/25 at 0524, Until Fri01/14/25 at 2037, Do not flush if lock, PICC, or central line not in place, IV infusing or unable to flush documented in this encounter Additional Health Concerns [...] Advance Directives occurred with: Patient Care Teams Order Picker/Assembler Relationship Specialty Start Date End Date Kalani Gonzales MD [address] [place] [address] [place] [phone] PCP - General Family Medicine 09/13/22 documented as of this encounter
--- OUTSIDE RECORDS SUMMARY | 2025-02-12 16:12 | External Medical Summary ---
Author Name Unknown Address Unknown Organization [id number]:LABORATORY [facility] - [address] [place] [address] Laboratory Report Ordering Provider Test Date Status HO AMBROSIO 01/11/2025 06:39:00 Final Warfarin Therapy
INR: 2 .0-3.0 conventional anticoagulation
INR: 2.5- 3.5 high intensity anticoagulation Observation Date Value Abnormality Reference (Units ) Status PT 01/11/2025 06:39:00 17.1 Above high normal 11 .6-15.2 (seconds) Final INR 01/11/2025 06:39:00 1.4 Above high normal 0. 8-1.2 Final Performing Location LABORATORY [facility] - [address] [place] [address]
--- OUTSIDE RECORDS SUMMARY | 2025-02-12 16:12 | External Medical Summary | Summary of Care ---
Author Name Unknown Organization [facility] Address [address] [place] [address] Phone [phone] Care Team Providers Care Air Motor Repairer Name Role Phone Jay Gonzales MD Primary Care Provi syl Reason for Visit * Reason Onset Date Comments Test Results 01/11/2025 Unexpected or In determinate Result Encounter Details Date Type Department Care Team (Late st Contact Info) Description 01/11/2025 Telephone Laboratory, [place] [address] [place] [address] Cheng Mcnally DO [address] [place] [address] Test Results (Unexpected or Indeterminate ... Allergies No known active allergiesdocumented as of this encounter (statuses as of 01/11/2025) Medications Multiple Vitamins-Minera ls (CENTRUM ADULTS) TABS Take 1 Tablet by mouth in the morning. Suspended QUEtiapine Fumarate 25 MG Oral Tablet (SEROquel)Indic ations:Mood disorder (HCC) Take 1 Tablet by mouth at bedtime. 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 90 Tablet 3 4 Suspended Venlafaxine HCl ER 150 MG Oral Capsule Extended Release 24 Hour (Effexor XR)Indications: Mood disorder (HCC) TAKE 1 CAPSULE BY MOUTH EVERY DAY DO NOT CUT, CRUSH, OR CHEW 90 Capsule 1 5 Suspended Venlafaxine HCl ER 75 MG Oral Capsule Extended Release 24 Hour (Effexor XR)Indications: Mood disorder (HCC) TAKE 1 CAPSULE BY MOUTH DAILY. DO NOT CUT, CRUSH OR CHEW (TAKE WITH [id number] DAILY) 90 Capsule 1 5 Suspended Gabapentin 100 MG Oral Capsule (Neurontin) Take 1 Capsule by mouth in the morning and 1 Capsule at noon and 1 Capsule before bedtime. Slowly increase the dose over 3 weeks--Start with one capsule in the evening for the first week. Add the afternoon dose on week 2 and the morning dose on week 3.. 90 Capsule 5 5 Suspended Ventolin HFA 108 (90 Base) MCG/ACT Inhalation Aerosol SolutionIndicat ions:Wheezing Inhale 2 Puffs by mouth every 4 hours as needed for Wheezing. 6.7 g 3 5 Suspended Fidaxomicin 200 MG Oral Tablet (Dificid)Indica tions:C. difficile diarrhea Take 1 Tablet by mouth in the morning and 1 Tablet before bedtime. 20 Tablet 5 Suspended documented as of this encounter (statuses as of 01/11/2025) Active Problems Problem Noted Date Diagnosed Date Metastasis to bone 01/10/2025 Decompensated HCV cirrhosis 01/08/2025 Elevated transaminase level 01/06/2025 Cholelithiasis 01/06/2025 HCC (hepatocellular carcinoma) 01/06/2025 Pleural mass [...] as of this encounter (statuses as of 01/11/2025) Resolved Problems Problem Noted Date Diagnosed Date Resolved Date Acute hypoxic respiratory failure 01/06/2025 01/07/2025 OTHER 11/15/2009 08/20/2018 Overview (11/20/2009): Genotype 1a Chronic hepatitis C 09/21/2009 08/20/20 18 documented as of this encounter (statuses as of 01/11/2025) Immunizations Name Administration Dates Next Due TDAP, [...] encounter Miscellaneous Notes * Telephone Encounter - Sowmya Espinoza OSA - 01/11/2025 4:19 AM EDT Hello- The radiologist discovered an unexpected or indeterminate finding on Neha Marks ([id number]) and asks that you review the following report. Study Type:CT HEAD/BRAIN W CONTRAST Date of Study: 01/10/[address] HEAD/BRAIN W CONTRAST: Large [...] contrast enhance CT interval follow-up is recommended. Please respond to this encounter to acknowledge receipt of this message and take responsibility to ensure this report is reviewed. Thank you, TORI Pearl Client Service [facility] documented in this encounter Plan of Treatment Upcoming Encounters Date Type Department Care Team (Late st Contact Info) Description 01/14/2025 8:30 AM EDT Appointment Interventional Radiology [facility], [facility] [address] [place] [address] 01/17/2025 2:30 PM EDT Telemedicine Orthopaedics, [facility] [address] [place] [phone] Sg Storm PA-C [address] [place] [address] 01/27/2025 8:30 AM EDT Appointment Interventional Radiology [facility], [facility] 1st [address] [place] [address] 01/27/2025 11:00 AM EDT Appointment Radiology, [facility] [address] [place] [address] 01/27/2025 11:30 AM EDT Appointment Radiology, [facility] [address] [place] [address] 02/10/2025 1:00 PM EDT Office Visit Hematology/Oncology [facility] [address] [place] [phone] Tunde Plunkett MD [address] [place] [address] 02/25/2025 11:00 AM EDT Office Visit [address] [phone] Jay Gonzales MD [address] [place] [phone] Scheduled Procedures Name Priority Associated Diagnoses Date/Ti [...] Vaccine (FLU shot) (#1) 2024 Diabetes Screening 01/11/2028 01/10/2025, 0 01/09/2025, 01/08/2025, Additional history exists Lipid Panel 08/23/2029 08/23/2024, [...] Activated Date Inactivated Comments 01/06/2025 5:26 AM This order ref lects the patients wishes and were consensually agreed upon. Question Answer Comments Discussion of Advance Directives occurred with: Patient Care Teams Air Motor Repairer Relationship Specialty Start Date End Date Jay Gonzales MD [address] [place] [phone] PCP - General Family Medicine 09/13/22 documented as of this encounter
--- OUTSIDE RECORDS SUMMARY | 2025-02-12 16:12 | External Medical Summary ---
Author Name Unknown Address Unknown Organization K01:LABORATORY [facility] - [facility] [place] [address] Laboratory Report Ordering Provider Test Date Status DAILYHO 01/13/2025 06:43:00 Final Observation Date Value Abnormality Reference (Units ) Status Albumin 01/13/2025 06:43:00 3.3 Below low normal 3.8-5.0 (g/dL) Final AST (Aspartate aminotransferase) 01/13/2025 06:43:00 61 Above high normal 10-35 (U/L) Final Alk Phos 01/13/2025 06:43:00 501 Above high normal 35-130 (U/L) Final ALT (Alanine aminotransferase) 01/13/2025 06:43:00 35 10-35 (U/L) Final Bilirubin, Total 01/13/2025 06:43:00 0.7 <=1.2 (mg/dL) Final Bilirubin, Direct 01/13/2025 06:43:00 0.4 Above high normal 0.0-0.3 (mg/dL) Final Protein 01/13/2025 06:43:00 6.4 6.0-8.3 (g/dL) Final Performing Location LABORATORY [facility] - [address] [facility] [address]
--- OUTSIDE RECORDS SUMMARY | 2025-02-12 16:12 | External Medical Summary | Summary of Care ---
Author Name Unknown Organization [facility] Address [address] [place] [address] Phone [phone] Care Team Providers Care Syrup Filterer Name Role Phone Jay Gonzales MD Primary Care Provi [facility] Reason for Referral * Evaluate & Treat - Unlimited Visits (Within 3 days (urgent)) - Authorized Specialty Diagnoses / Procedures Referred By Vaibhav roldan Referred To Contact Radiation Oncology Diagnoses HCC (hepatocellular carcinoma) (HCC) Metastasis to bone (HCC) Vin Long MD [address] [place] [address] Phone: tel: fax: Referral ID Status Reason Start Date Expiration Date Visits Requested Visits Authorized [id number] Authorized Specialty Services Required 01/13/[phone] Question Answer Referral Priority Within 3 days (urgent) Where should this appointment be scheduled? External - Dr. Billy Plunkett, [facility] Comments Please try to see next week. She is likely to be discharged this weekend. Reason for Visit * Auth/Cert Specialty Diagnoses / Procedures Referred By Vaibhav roldan Referred To Contact Diagnoses Cirrhosis of liver (HCC) Fevers, elevated LFT, pleural effusions Kori Xiao DO [address] [facility] [place] [address] Phone: tel: fax: [facility]) Emergency Department ([facility]) [address] [place] [address] Phone: tel: fax: Referral ID Status Reason Start Date Expiration Date Visits Re quested Visits Authorized [id number] Encounter Details Date Type Department Care Team (Late st Contact Info) Description 01/13/2025 12:00 PM EDT Documentation Radiation Oncology, [place] [address] [place], [place] [phone] Vin Long MD [address] [place], [place] [phone] HCC (hepatocellular carcinoma) (HCC)*; Metastasis to bone (HCC) Allergies No known active allergiesdocumented as of this encounter (statuses as of 01/13/2025) Medications Multiple Vitamins-Minera ls (CENTRUM ADULTS) TABS [...] NOT CUT, CRUSH OR CHEW (TAKE WITH [id number] DAILY) 90 Capsule 1 5 Suspended Gabapentin [...] as of this encounter (statuses as of 01/13/2025) Active Problems Problem Noted Date Diagnosed Date [...] as of this encounter (statuses as of 01/13/2025) Resolved Problems Problem Noted Date Diagnosed Date Resolved Date Acute hypoxic respiratory failure 01/06/2025 01/07/2025 Cholelithiasis 01/06/2025 01/13/2025 OTHER 11/15/2009 08/20/2018 Overview (11/20/2009): Genotype 1a Chronic hepatitis C 09/21/2009 08/20/20 18 documented as of this encounter (statuses as of 01/13/2025) Immunizations Name Administration Dates Next Due TDAP, [...] documented in this encounter Miscellaneous Notes * Radiation Planning Note - Vin Long MD - 01/13/2025 12:22 PM EDT RADIATION ONCOLOGY SIMULATION & START OF TREATMENT NOTE [facility] Neha Marks [id number] 64 year old Neha Marks underwent simulation in Radiation Oncology at [facility] on 01/13/2025. 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 She will receive 8 Gy x 1 to the right 6th riband scapular mets, and is being referred for multifraction radiotherapy to the skull met as an outpatient. The patient is a 64 year old female who was simulated for palliative radiation therapy to the iaelg2de rib and right scapula. The potential benefits and risks of radiation therapy were reviewed with the patient and family in detail. The alternative treatment options and expected outcomes were also discussed with the patientand family in detail. Written informed consent was obtained. The relevant diagnostic images were reviewed prior to simulation. Description of the procedure: The patient was brought to the simulator room and placed in the treatment position. The patient wasimmobilized per department protocol. Reference point was placed and verified. The radiation planning CT scan was then obtained. Measurements were taken and ordonez were placed. Radiation treatment position: supine Radiation immobilization devices: per usual Other radiation planning issues: none Radiation planning CT parameters: shallow free breathing CT scan Radiation planning CT contrast: no CT scan IV contrast no CT scan oral contrast Patient breathing: shallow free breathing Radiation gating: none Radiation treatment planninD conformal radiation therapy (3D SHIRT IRONER SUPERVISOR) IMRT justification (if applicable): none IMRT avoidance structures (if applicable): none Radiation dose (estimated): 8 Gy x 1 Positioning verification and target localization: cone beam computed tomography Concurrent chemotherapy: no The CT images were transferred to the radiation treatment planning system. The target volumes and critical adjacent normal tissues were contoured. The images and contours were discussed with and submitted to dosimetry and/or physics for treatment planning and dose calculation. The patient has been scheduled to return for treatment initiation in the near future, once a treatment plan has been designed. The patient will be seen on a regular basis once treatment begins. Vin Long MD 01/13/2025 documented in this encounter Plan of Treatment Upcoming Encounters Date Type Department Care Team (Late st Contact Info) Description 01/14/2025 2:00 PM EDT Documentation Radiation Oncology, [address] [address] You Gonzalez MD [address] [place] [address] 01/17/2025 2:30 PM EDT Telemedicine Orthopaedics, [facility] [address] [place] [address] Sg Storm PA-C [address] [place], [place] [phone] 02/10/2025 1:00 PM EDT Office Visit Hematology/Oncology [facility] [address] [facility] [place] [phone] Tunde Plunkett MD 200 [facility] [place] [address] 02/25/2025 11:00 AM EDT Office Visit [address] [phone] Jay Gonzales MD [address] [place] [phone] Scheduled Procedures Name Priority Associated Diagnoses Date/Ti me COLONOSCOPY FLEXIBLE PROXIMA L DIAGNOSTIC Recall Personal history of colonic polyps Scheduled Referrals Name Type Priority Associated Diagnoses Orde r Schedule RADIATION/ONCOLOGY REFERRAL OP Referral Within 3 days (urgent) HCC (hepatocellular carcinoma) (HCC) Metastasis to bone (HCC) Ordered: 01/13/2025 Health Maintenance Due Date Last Done Comments [...] Vaccine (FLU shot) (#1) 2024 Diabetes Screening 01/14/2028 01/13/2025, 0 01/12/2025, 01/11/2025, Additional history exists Lipid Panel 08/23/2029 08/23/2024, 08, 08/11/2020, Additional history exists DTap/Tdap Vaccines (3 [...] Advance Directives occurred with: Patient Care Teams Syrup Filterer Relationship Specialty Start Date End Date Jay Gonzales MD [address] [place] [address] [place] [phone] PCP - General Family Medicine 09/13/22 documented as of this encounter
--- OUTSIDE RECORDS SUMMARY | 2025-02-12 16:12 | External Medical Summary ---
Author Name Unknown Address Unknown Organization K01:[facility] [address] Laboratory Report Ordering Provider Test Date Status HO AMBROSIO 01/14/2025 06:54:00 Final Observation Date Value Abnormality Reference (Units ) Status WBC, Total 01/14/2025 06:54:00 4.47 4.00-10.80 (K/uL) Final RBC 01/14/2025 06:54:00 3.44 3.85-5.15 (M/uL) Final Hemoglobin 01/14/2025 06:54:00 10.0 Below low normal 12.0-15.3 (g/dL) Final HCT 01/14/2025 06:54:00 32.3 Below low normal 36.0-45.2 (%) Final MCV 01/14/2025 06:54:00 93.9 81.5-97.5 (fL) Final MCH 01/14/2025 06:54:00 29.1 27.0-34.0 (pg) Final MCHC 01/14/2025 06:54:00 31.0 32.0-36.0 (g/dL) Final RDW 01/14/2025 06:54:00 16.2 11.5-15.5 (%) Final Platelets 01/14/2025 06:54:00 76 Below low normal 140-400 (K/uL) Final MPV 01/14/2025 06:54:00 13.0 6.6-11.1 (fL) Final Nucleated erythrocytes/100 leukocytes [Ratio] in Blood by Automated count 01/14/2025 06:54:00 0 <=0 (/100 WBCs) Final Performing Location [facility]ORY [facility] [place] [address] [place] [address]
--- OUTSIDE RECORDS SUMMARY | 2025-02-12 16:12 | External Medical Summary ---
Author Name Unknown Address Unknown Organization K01:LABORATORY [facility] - [facility] [place] [address] Laboratory Report Ordering Provider Test Date Status HO AMBROSIO 01/12/2025 05:52:00 Final Observation Date Value Abnormality Reference (Units ) Status WBC, Total 01/12/2025 05:52:00 4.90 4.00-10.80 (K/uL) Final RBC 01/12/2025 05:52:00 3.46 3.85-5.15 (M/uL) Final Hemoglobin 01/12/2025 05:52:00 9.9 Below low normal 12.0-15.3 (g/dL) Final HCT 01/12/2025 05:52:00 32.4 Below low normal 36.0-45.2 (%) Final MCV 01/12/2025 05:52:00 93.6 81.5-97.5 (fL) Final MCH 01/12/2025 05:52:00 28.6 27.0-34.0 (pg) Final MCHC 01/12/2025 05:52:00 30.6 32.0-36.0 (g/dL) Final RDW 01/12/2025 05:52:00 16.6 11.5-15.5 (%) Final Platelets 01/12/2025 05:52:00 82 Below low normal 140-400 (K/uL) Final MPV 01/12/2025 05:52:00 12.6 6.6-11.1 (fL) Final Nucleated erythrocytes/100 leukocytes [Ratio] in Blood by Automated count 01/12/2025 05:52:00 0 <=0 (/100 WBCs) Final Performing Location LABORATORY [facility] - [address] [place] [address]
--- OUTSIDE RECORDS SUMMARY | 2025-02-12 16:12 | External Medical Summary ---
Author Name Unknown Address Unknown Organization K01:LABORATORY [facility] [place] - [facility] [place] [address] Laboratory Report Ordering Provider Test Date Status DAILYHO 01/12/2025 05:52:00 Final Observation Date Value Abnormality Reference (Units ) Status Albumin 01/12/2025 05:52:00 3.7 Below low normal 3.8-5.0 (g/dL) Final AST (Aspartate aminotransferase) 01/12/2025 05:52:00 68 Above high normal 10-35 (U/L) Final Alk Phos 01/12/2025 05:52:00 507 Above high normal 35-130 (U/L) Final ALT (Alanine aminotransferase) 01/12/2025 05:52:00 37 Above high normal 10-35 (U/L) Final Bilirubin, Total 01/12/2025 05:52:00 0.8 <=1.2 (mg/dL) Final Bilirubin, Direct 01/12/2025 05:52:00 0.5 Above high normal 0.0-0.3 (mg/dL) Final Protein 01/12/2025 05:52:00 6.5 6.0-8.3 (g/dL) Final Performing Location LABORATORY [facility] [place] - [address] [place] [address]
--- OUTSIDE RECORDS SUMMARY | 2025-02-12 16:12 | External Medical Summary | Summary of Care ---
Author Name Unknown Organization [facility] Address [address] [place] [address] Phone [phone] Care Team Providers Care Hawk Missile System Crewmember Name Role Phone Jay Gonzales MD Primary Care Provi syl Reason for Visit * Auth/Cert Specialty Diagnoses / Procedures Referred By Vaibhav roldan Referred To Contact Diagnoses Cirrhosis of liver (HCC) Fevers, elevated LFT, pleural effusions Kori Xiao, DO [address] [facility] [place] [address] Phone: tel: fax: [facility]) Emergency Department [facility] [address] [place] [address] Phone: tel: fax: Referral ID Status Reason Start Date Expiration Date Visits Re quested Visits Authorized [id number] [phone] Encounter Details Date Type Department Care Team (Late st Contact Info) Description 01/14/2025 1:00 PM EDT Documentation Radiation Oncology, [place] [address] [place] [address] You Gonzalez MD [facility] [place] [address] Metastasis to bone (HCC)*; HCC (hepatocellular carcinoma) (HCC) Allergies No known active allergiesdocumented as of this encounter (statuses as of 01/14/2025) Medications Multiple Vitamins-Flovilla als (CENTRUM ADULTS) TABS Take 1 Tablet [...] NOT CUT, CRUSH OR CHEW (TAKE WITH [id number] DAILY) 90 Capsule 1 11/15/19 25 Active [...] suspected opioid overdose. Seek immediate medical attention. [email or web address] I 2 Each 3 01/15/20 25 Active Morphine Sulfate 15 MG Oral Tablet (Msir) Take one-half (0.5) tablets by mouth every 4 hours as needed for moderate or severe pain. 90 Tablet 01/15/20 25 025 Discontinued documented as of this encounter (statuses as of 01/14/2025) Active Problems Problem Noted Date Diagnosed Date [...] as of this encounter (statuses as of 01/14/2025) Resolved Problems Problem Noted Date Diagnosed Date Resolved Date Acute hypoxic respiratory failure 01/06/2025 01/07/2025 Cholelithiasis 01/06/2025 01/13/2025 OTHER 11/15/2009 08/20/2018 Overview (11/20/2009): Genotype 1a Chronic hepatitis C 09/21/2009 08/20/20 18 documented as of this encounter (statuses as of 01/14/2025) Immunizations Name Administration Dates Next Due TDAP, [...] Assessment Author No 01/06/2025 6:09 PM JAVIERT Rona Molina RN * Are you blind or [...] documented in this encounter Progress Notes * You Gonzalez MD - 01/14/2025 4:00 PM EDT Hypofractionation note 01/14/2025 I was called to the linac consult to review patient setup and positioning. After careful comparisonof acquired and reference data sets in the transverse, coronal and sagittal planes, I approved the patient to receive her single fraction of palliative radiotherapy dosed at 800 cGy. You Gonzalez MD documented in this encounter Plan of Treatment Upcoming Encounters Date Type Department Care Team (Late st Contact Info) Description 01/17/2025 2:30 PM EDT Telemedicine Orthopaedics, [address] [phone] Sg Storm PA-C [address] [place] [address] 02/10/2025 1:00 PM EDT Office Visit Hematology/Oncology [facility] [address] [place] [address] [address] [place] [phone] Tunde Plunkett MD 200 [facility] [place] [address] 02/25/2025 11:00 AM EDT Office Visit [address] [phone] Jay Gonzales MD [address] [place] [phone] Scheduled Procedures Name Priority Associated Diagnoses [...] HTN, goal below 130/80 Unspecified essential hypertension Metastasis to bone (HCC)- Primary Secondary malignant neoplasm of bone and bone marrow HCC (hepatocellular carcinoma) (HCC) Malignant neoplasm of liver, primary documented in this encounter Additional Health Concerns [...] Advance Directives occurred with: Patient Care Teams Hawk Missile System Crewmember Relationship Specialty Start Date End Date Jay Gonzales MD [address] [place] [phone] PCP - General Family Medicine 09/13/22 documented as of this encounter
--- OUTSIDE RECORDS SUMMARY | 2025-02-12 16:12 | External Medical Summary ---
Author Name Unknown Address Unknown Organization K01:LABORATORY [facility] - [address] [place] [address] Laboratory Report Ordering Provider Test Date Status HO AMBROSIO 01/13/2025 06:43:00 Final Warfarin Therapy
INR: 2 .0-3.0 conventional anticoagulation
INR: 2.5- 3.5 high intensity anticoagulation Observation Date Value Abnormality Reference (Units ) Status PT 01/13/2025 06:43:00 18.2 Above high normal 11 .6-15.2 (seconds) Final INR 01/13/2025 06:43:00 1.5 Above high normal 0. 8-1.2 Final Performing Location LABORATORY [facility] - [address] [place] [address]
--- OUTSIDE RECORDS SUMMARY | 2025-02-12 16:12 | External Medical Summary | Summary of Care ---
Author Name Unknown Organization [facility] Address [address] [place] [address] Phone [phone] Care Team Providers Care Aircraft Sheet Metal Mechanic Name Role Phone Jay Gonzales MD Primary Care Provi [facility] Reason for Referral * Evaluate & Treat - Unlimited Visits (Within 3 days (urgent)) - Authorized Specialty Diagnoses / Procedures Referred By Vaibhav roldan Referred To Contact Radiation Oncology Diagnoses HCC (hepatocellular carcinoma) (HCC) Metastasis to bone (HCC) Vin Long MD [address] [place] [address] Phone: tel: fax: Referral ID Status Reason Start Date Expiration Date Visits Requested Visits Authorized [id number] Authorized Specialty Services Required 01/13/[phone] Question Answer Referral Priority Within 3 days (urgent) Where should this appointment be scheduled? External - Dr. Billy Plunkett, [facility] Comments Please try to see next week. She is likely to be discharged this weekend. Reason for Visit * Auth/Cert Specialty Diagnoses / Procedures Referred By Vaibhav roldan Referred To Contact Diagnoses Cirrhosis of liver (HCC) Fevers, elevated LFT, pleural effusions Kori Xiao DO [address] [facility] [place] [address] Phone: tel: fax: [facility]) Emergency Department ([facility]) [address] [place] [address] Phone: tel: fax: Referral ID Status Reason Start Date Expiration Date Visits Re quested Visits Authorized [id number] Encounter Details Date Type Department Care Team (Late st Contact Info) Description 01/13/2025 12:00 PM EDT Documentation Radiation Oncology, [place] [address], [place] [phone] Vin Long MD [address], [place] [phone] HCC (hepatocellular carcinoma) (HCC)*; Metastasis to bone (HCC) Allergies No known active allergiesdocumented as of this encounter (statuses as of 01/14/2025) Medications Multiple Vitamins-Nye als (CENTRUM ADULTS) TABS Take 1 Tablet by mouth in the morning. Active QUEtiapine Fumarate 25 MG Oral Tablet (SEROquel)Heather cations:Mood disorder (HCC) Take 1 Tablet by mouth at bedtime. 90 Tablet 3 4 Active Carvedilol 6.25 MG Oral Tablet (Coreg)Indicat [...] NOT CUT, CRUSH OR CHEW (TAKE WITH 577=435RU DAILY) 90 Capsule 1 5 Active Gabapentin [...] for Wheezing. 6.7 g 3 5 Active Fidaxomicin 200 MG Oral Tablet (Dificid)Indic ations:C. difficile diarrhea Take 1 Tablet by mouth in the morning and 1 Tablet before bedtime. 20 Tablet 5 025 Discontinued documented as of this encounter [...] in this encounter Miscellaneous Notes * Radiation Completion Note - Vin Long MD - 01/14/2025 4:30 PM EDT RADIATION ONCOLOGY COMPLETION NOTE [facility] Neha Marks [id number] 64 year old Neha Marks completed radiation treatments in Radiation Oncology at [facility] on01/14/2025. 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 She received 8 Gy x 1 to the right 6th rib andscapular mets 01/14/2025, and is being referred for multifraction radiotherapy to the skull met as an outpatient. RADIATION SUMMARY: Radiation treatment site: Right sixth rib and scapula Radiation start date: 01/14/2025 Radiation completion date: 01/14/2025 Radiation dose: 800 cGy Radiation dose per fraction: 800 cGy Number of fractions: 1 Radiation treatment planninD conformal radiation therapy (3D TELEPHONE SUPERVISOR) Radiation energy: 6 MV photons Positioning verification and target localization: MVCT For details regarding treatment position, treatment devices, and patient breathing please see the prior simulation note. The patient tolerated radiation therapy. PLAN: The patient will follow-up in Radiation Oncology as needed. She is following at [facility]. Follow-up with other physicians is as already scheduled. The patient will contact us in the meantime with questions or concerns. Thank you for having asked us to take part in this patient's care. Vin Long MD 01/14/2025 * Radiation Planning Note - Vin Long MD - 01/13/2025 12:22 PM EDT RADIATION ONCOLOGY SIMULATION & START OF TREATMENT NOTE [facility] Neha Marks [id number] 64 year old Neha Marks underwent simulation in Radiation Oncology at [facility] on 01/13/2025. Date and Time of Procedure: [...] simulated for palliative radiation therapy to the [id number] rib and right scapula. The potential benefits [...] Radiation treatment planninD conformal radiation therapy (3D TELEPHONE SUPERVISOR) IMRT justification (if applicable): none IMRT [...] Description 01/17/2025 2:30 PM EDT Telemedicine Orthopaedics, [facility] [address] [place] [phone] Sg Storm PA-C [address] [place], [place] [phone] 02/10/2025 1:00 PM EDT Office Visit Hematology/Oncology [address] [place] [address] Tunde Plunkett MD [address] [place] [address] 02/25/2025 11:00 AM EDT Office Visit [address] [phone] Jay Gonzales MD [address] [place] [phone] Scheduled Procedures Name Priority Associated Diagnoses [...] Advance Directives occurred with: Patient Care Teams Aircraft Sheet Metal Mechanic Relationship Specialty Start Date End Date Jay Gonzales MD [address] [place] [phone] PCP - General Family Medicine 09/13/22 documented as of this encounter
--- OUTSIDE RECORDS SUMMARY | 2025-02-12 16:12 | External Medical Summary | Summary of Care ---
Author Name Unknown Organization [facility] Address [address] [place] [address] Phone [phone] Care Team Providers Care Wet Silk Hanger Name Role Phone Jay Gonzales MD Primary Care Provi syl Reason for Visit * Auth/Cert Specialty Diagnoses / Procedures Referred By Vaibhav roldan Referred To Contact Diagnoses Cirrhosis of liver (HCC) Fevers, elevated LFT, pleural effusions Kori Xiao, DO [address] [facility] [place] [address] Phone: tel: fax: [facility]) Emergency Department ([facility] [address] [place] [address] Phone: tel: fax: Referral ID Status Reason Start Date Expiration Date Visits Re quested Visits Authorized [id number] [phone] Encounter Details Date Type Department Care Team (Late st Contact Info) Description 01/14/2025 1:30 PM EDT Documentation Radiation Oncology, [place] [address] [place] [address] You Gonzalez MD [facility] [place] [phone] HCC (hepatocellular carcinoma) (HCC)*; Metastasis to bone (HCC) Allergies No known active allergiesdocumented as of this encounter (statuses as of 01/14/2025) Medications Multiple Vitamins-[place] als (CENTRUM ADULTS) TABS Take 1 Tablet [...] NOT CUT, CRUSH OR CHEW (TAKE WITH 110=064CI DAILY) 90 Capsule 1 11/15/19 25 Active [...] suspected opioid overdose. Seek immediate medical attention. [email or web address] I 2 Each 3 01/15/20 25 Active [...] Notes * You Gonzalez MD - 01/14/2025 3:59 PM EDT RADIATION ONCOLOGY: ON TREATMENT PROGRESS NOTE Neha Marks [id number] 01/14/2025 Radiation Treatments Reference Point Last Treated On Elapsed Days Most Recent Session Dose (cGy) Total Dose (cGy) [id number] 01/14/2025 0 800 800 Historical Treatments (Plans: 1) Plan Last Treated On Elapsed Days Fractions Treated Prescribed Fraction Dose (cGy) Prescribed TotalDose (cGy) [id number] 01/14/2025 0 1 of 1 800 800 VITAL SIGNS: Wt Readings from Last 2 Encounters: 01/14/25 77.2 kg (170 lb 3.1 oz) 01/05/25 77.2 kg (170 lb 3.1 oz) LABORATORY STUDIES: WBC: Lab Results Component Value Date/Time WBC 4.47 01/14/2025 06:54 AM WBC 5.21 01/13/2025 06:43 AM WBC 5.71 10/10/2020 09:12 AM WBC 4.58 09/22/2019 10:32 AM WBC 9.4 11/22/1996 02:40 PM WBC, URINE - [facility] 0-2 01/06/2025 12:56 AM HGB: Lab Results Component Value Date/Time HGB 10.0 (L) 01/14/2025 06:54 AM HGB 10.1 (L) 01/13/2025 06:43 AM HGB 12.2 01/05/2025 08:26 PM HGB 14.0 10/10/2020 09:12 AM HGB 13.6 09/22/2019 10:32 AM HGB 13.1 11/22/1996 02:40 PM PLT: No results found for: "PLAT" BUN: Lab Results Component Value Date/Time BUN - [facility] 9 01/14/2025 06:54 AM BUN - [facility] 8 01/13/2025 06:43 AM BUN - [facility] 9 10/10/2020 09:12 AM BUN - [facility] 9 08/11/2020 02:51 PM Creatinine: Lab Results Component Value Date/Time CREATININE - [facility] 0.6 01/14/2025 06:54 AM CREATININE - [facility] 0.6 01/13/2025 06:43 AM CREATININE - [facility] 0.8 10/10/2020 09:12 AM CREATININE - [facility] 0.7 08/11/2020 02:51 PM GFR Estimated: No components found for: "GFR ESTIMATED" Sodium: Lab Results Component Value Date/Time SODIUM - [facility] 140 01/14/2025 06:54 AM SODIUM - [facility] 137 01/13/2025 06:43 AM SODIUM - [facility] 142 10/10/2020 09:12 AM SODIUM - [facility] 142 08/11/2020 02:51 PM Potassium: Lab Results Component Value Date/Time POTASSIUM - [facility] 3.7 01/14/2025 06:54 AM POTASSIUM - [facility] 3.3 (L) 01/13/2025 06:43 AM POTASSIUM - [facility] 4.1 10/10/2020 09:12 AM POTASSIUM - [facility] 3.8 08/11/2020 02:51 PM Chloride: Lab Results Component Value Date/Time CHLORIDE - [facility] 102 01/14/2025 06:54 AM CHLORIDE - [facility] 99 01/13/2025 06:43 AM CHLORIDE - [facility] 104 10/10/2020 09:12 AM CHLORIDE - [facility] 106 08/11/2020 02:51 PM CO2: Lab Results Component Value Date/Time CO2 - [facility] 26 01/14/2025 06:54 AM CO2 - [facility] 28 01/13/2025 06:43 AM CO2 - [facility] 27 10/10/2020 09:12 AM CO2 - [facility] 25 08/11/2020 02:51 PM Anion Gap: Lab Results Component Value Date/Time ANION GAP - [facility] 12 01/14/2025 06:54 AM ANION GAP - [facility] 10 01/13/2025 06:43 AM ANION GAP - [facility] 11 10/10/2020 09:12 AM ANION GAP - [facility] 11 08/11/2020 02:51 PM Glucose: Lab Results Component Value Date/Time GLUCOSE - [facility] 129 (H) 01/14/2025 06:54 AM GLUCOSE - [facility] 157 (H) 01/13/2025 06:43 AM GLUCOSE - [facility] 120 10/10/2020 09:12 AM GLUCOSE - [facility] 139 (H) 08/11/2020 02:51 PM GLUCOSE - [facility] 83 11/22/1996 02:40 PM GLUCOSE, URINE - [facility] Negative 01/06/2025 12:56 AM GLUCOSE, URINE - [facility] 250 (A) 02/17/2019 10:04 AM Calcium: Lab Results Component Value Date/Time CALCIUM - [facility] 9.1 01/14/2025 06:54 AM CALCIUM - [facility] 9.2 01/13/2025 06:43 AM CALCIUM - [facility] 9.3 10/10/2020 09:12 AM CALCIUM - [facility] 9.7 08/11/2020 02:51 PM COMMENTS: 1. Patient notes no radiation side effects. 2. Medications were reviewed and reconciled. 3. Concurrent chemotherapy: no 4. Examination reveals no radiation-induced changes. 5. Weight graph was reviewed. 6. Recent labs were reviewed. 7. Weekly localization cone beam CT scans, patient setup, and dosimetery were reviewed by myself. ECOG Performance Status: (2) Ambulatory and capable of self care, unable to carry out work activity, up and about > 50% of waking hours Acute Radiation Toxicity (CTCAE version 5.0) Grade 3 or higher acute radiation toxicity Dermatitis radiation: no Dry mouth: no Mucositis: no Esophagitis: no Nausea: no Vomiting: no Cystitis non-infective: no Proctitis: grade 1 (rectal discomfort, intervention not indicated) Diarrhea: grade 3 (increase of greater than or equal to 7 stools per day over baseline; hospitalization indicated; severe increase in ostomy output compared to baseline; limiting self care ADL)- currently on C difficile isolation Weight loss: grade 1 (5 to less than 10% from baseline; intervention not indicated) Fatigue: grade 1 (fatigue relieved by rest) Assessment: Patient is completed a single palliative radiation treatment of 800 cGy to 2 blastic/lytic bone metastases. She also has a comorbid still in of and on her 2nd course of antibiotics. PLAN/RECOMMENDATIONS: The patient will follow-up if necessary, all treatment is strictly palliative in intent. You Gonzalez MD Radiation Oncology, [address] [address] documented in this encounter Plan of Treatment Upcoming Encounters Date Type Department Care Team (Late st Contact Info) Description 01/17/2025 2:30 PM EDT [facility] [address] [place] [address] Sg Storm PA-C [address] [place] [address] 02/10/2025 1:00 PM EDT Office Visit Hematology/Oncology [address] [phone] Tunde Plunkett MD [address] [place] [address] 02/25/2025 11:00 AM EDT Office Visit Family [address] [phone] Jay Gonzales MD [address] [place] [phone] Scheduled Procedures Name Priority Associated Diagnoses [...] Advance Directives occurred with: Patient Care Teams Wet Silk Hanger Relationship Specialty Start Date End Date Jay Gonzales MD [address] [place] [phone] PCP - General Family Medicine 09/13/22 documented as of this encounter
--- OUTSIDE RECORDS SUMMARY | 2025-02-12 16:12 | External Medical Summary ---
Author Name Unknown Address Unknown Organization [id number]:LABORATORY [facility] - [address] [facility] [address] Laboratory Report Ordering Provider Test Date Status HO AMBROSIO 01/11/2025 18:33:00 Final Observation Date Value Abnormality Reference (Units ) Status BUN 01/11/2025 18:33:00 7 6-20 (mg/dL) Final Creatinine 01/11/2025 18:33:00 0.6 0.5-1.0 (mg/dL) Final Glomerular filtration rate/1.73 sq M.predicted [Volume Rate/Area] in Serum, Plasma or Blood by Creatinine-based formula (CKD-EPI) 01/11/2025 18:33:00 >90 >=60 (mL/min) Final eGFR is calculated based on the CKD-EPI 2020 equation. Sodium 01/11/2025 18:33:00 140 135-146 (m mol/L) Final Potassium 01/11/2025 18:33:00 3.5 3.5-5.1 (m mol/L) Final Cl 01/11/2025 18:33:00 97 Below low normal 98- 107 (mmol/L) Final CO2 01/11/2025 18:33:00 31 22-32 (mmo l/L) Final Anion gap 01/11/2025 18:33:00 12 7-15 (mmol /L) Final Glucose 01/11/2025 18:33:00 195 Above high normal 70 -120 (mg/dL) Final Calcium 01/11/2025 18:33:00 9.4 8.4-10.2 ( mg/dL) Final Performing Location LABORATORY [facility] [address] [facility] [address]
--- OUTSIDE RECORDS SUMMARY | 2025-02-12 16:12 | External Medical Summary | Summary of Care ---
Author Name Unknown Organization [facility] Address [address] [place] [address] Phone [phone] Care Team Providers Care Master Naval Parachutist Name Role Phone Jay Gonzales MD Primary Care Provi syl Reason for Visit * Auth/Cert Specialty Diagnoses / Procedures Referred By Vaibhav roldan Referred To Contact Diagnoses Cirrhosis of liver (HCC) Fevers, elevated LFT, pleural effusions Kori Xiao, DO [address] [facility] [place] [address] Phone: tel: fax: [facility]) Emergency Department [facility] [address] [place] [address] Phone: tel: fax: Referral ID Status Reason Start Date Expiration Date Visits Re quested Visits Authorized [id number] [phone] Encounter Details Date Type Department Care Team (Late st Contact Info) Description 01/14/2025 1:00 PM EDT Documentation Radiation Oncology, [place] [address] [place] [address] You Gonzalez MD [facility] [place] [address] Metastasis to bone (HCC)*; HCC (hepatocellular carcinoma) (HCC) Allergies No known active allergiesdocumented as of this encounter (statuses as of 01/14/2025) Medications Multiple Vitamins-[place] als (CENTRUM ADULTS) TABS Take 1 Tablet [...] NOT CUT, CRUSH OR CHEW (TAKE WITH 170=324RQ DAILY) 90 Capsule 1 11/15/19 25 Active [...] suspected opioid overdose. Seek immediate medical attention. [email or web address] I 2 Each 3 01/15/20 25 Active [...] in this encounter Progress Notes * You Gnozalez MD - 01/14/2025 4:00 PM EDT Hypofractionation [...] Description 01/17/2025 2:30 PM EDT Telemedicine Orthopaedics, [address] [phone] Sg Storm PA-C [address] [place] [address] 02/10/2025 1:00 PM EDT Office Visit Hematology/Oncology [address] [place] [address] [address] [place] [phone] Tunde Plunkett MD [address] [facility] [place] [address] 02/25/2025 11:00 AM EDT Office Visit [address] [phone] Jay Gonzales MD [address] [place] [phone] Scheduled Procedures Name Priority Associated Diagnoses [...] Advance Directives occurred with: Patient Care Teams Master Naval Parachutist Relationship Specialty Start Date End Date Jay Gonzales MD [address] [place] [address] [place] [phone] PCP - General Family Medicine 09/13/22 documented as of this encounter
--- OUTSIDE RECORDS SUMMARY | 2025-02-12 16:12 | External Medical Summary ---
Author Name Unknown Address Unknown Organization [id number]:LABORATORY [facility] [place] - [address] [place] [address] Laboratory Report Ordering Provider Test Date Status HO AMBROSIO 01/12/2025 05:52:00 Final Warfarin Therapy
INR: 2 .0-3.0 conventional anticoagulation
INR: 2.5- 3.5 high intensity anticoagulation Observation Date Value Abnormality Reference (Units ) Status PT 01/12/2025 05:52:00 17.8 Above high normal 11 .6-15.2 (seconds) Final INR 01/12/2025 05:52:00 1.5 Above high normal 0. 8-1.2 Final Performing Location LABORATORY [facility] - [address] [place] [address]
--- OUTSIDE RECORDS SUMMARY | 2025-02-12 16:12 | External Medical Summary ---
Author Name Unknown Address Unknown Organization [id number]:[facility] [place] [address] [place] [address] Laboratory Report Ordering Provider Test Date Status HO AMBROSIO 01/14/2025 06:54:00 Final Warfarin Therapy
INR: 2 .0-3.0 conventional anticoagulation
INR: 2.5- 3.5 high intensity anticoagulation Observation Date Value Abnormality Reference (Units ) Status PT 01/14/2025 06:54:00 17.8 Above high normal 11 .6-15.2 (seconds) Final INR 01/14/2025 06:54:00 1.5 Above high normal 0. 8-1.2 Final Performing Location [facility] [address] [place] [address]
--- OUTSIDE RECORDS SUMMARY | 2025-02-12 16:12 | External Medical Summary ---
Author Name Unknown Address Unknown Organization [id number]:LABORATORY [facility] [place] - [facility] [address] [facility] [address] [facility] [address] Laboratory Report Ordering Provider Test Date Status HO AMBROSIO 01/13/2025 06:43:00 Final Observation Date Value Abnormality Reference (Units ) Status WBC, Total 01/13/2025 06:43:00 5.21 4.00-10.80 (K/uL) Final RBC 01/13/2025 06:43:00 3.51 3.85-5.15 (M/uL) Final Hemoglobin 01/13/2025 06:43:00 10.1 Below low normal 12.0-15.3 (g/dL) Final HCT 01/13/2025 06:43:00 33.0 Below low normal 36.0-45.2 (%) Final MCV 01/13/2025 06:43:00 94.0 81.5-97.5 (fL) Final MCH 01/13/2025 06:43:00 28.8 27.0-34.0 (pg) Final MCHC 01/13/2025 06:43:00 30.6 32.0-36.0 (g/dL) Final RDW 01/13/2025 06:43:00 16.3 11.5-15.5 (%) Final Platelets 01/13/2025 06:43:00 81 Below low normal 140-400 (K/uL) Final MPV 01/13/2025 06:43:00 12.9 6.6-11.1 (fL) Final Nucleated erythrocytes/100 leukocytes [Ratio] in Blood by Automated count 01/13/2025 06:43:00 0 <=0 (/100 WBCs) Final Performing Location LABORATORY [facility] [place] - [address] [place] [address]
--- OUTSIDE RECORDS SUMMARY | 2025-02-12 16:12 | External Medical Summary ---
Author Name Unknown Address Unknown Organization K01:[facility] [place] - [facility] [address] Laboratory Report Ordering Provider Test Date Status HO AMBROSIO 01/11/2025 06:38:00 Final Observation Date Value Abnormality Reference (Units ) Status WBC, Total 01/11/2025 06:38:00 4.46 4.00-10.80 (K/uL) Final RBC 01/11/2025 06:38:00 3.44 3.85-5.15 (M/uL) Final Hemoglobin 01/11/2025 06:38:00 10.0 Below low normal 12.0-15.3 (g/dL) Final HCT 01/11/2025 06:38:00 32.8 Below low normal 36.0-45.2 (%) Final MCV 01/11/2025 06:38:00 95.3 81.5-97.5 (fL) Final MCH 01/11/2025 06:38:00 29.1 27.0-34.0 (pg) Final MCHC 01/11/2025 06:38:00 30.5 32.0-36.0 (g/dL) Final RDW 01/11/2025 06:38:00 16.4 11.5-15.5 (%) Final Platelets 01/11/2025 06:38:00 65 Below low normal 140-400 (K/uL) Final MPV 01/11/2025 06:38:00 13.0 6.6-11.1 (fL) Final Nucleated erythrocytes/100 leukocytes [Ratio] in Blood by Automated count 01/11/2025 06:38:00 0 <=0 (/100 WBCs) Final Performing Location LABORATORY [facility] - [address] [place] [address]
--- OUTSIDE RECORDS SUMMARY | 2025-02-12 16:12 | External Medical Summary ---
Author Name Unknown Address Unknown Organization K01:LAB[facility]ATORY [facility] [place] [address] [place] [address] Laboratory Report Ordering Provider Test Date Status DAILYHO 01/11/2025 06:39:00 Final Observation Date Value Abnormality Reference (Units ) Status Albumin 01/11/2025 06:39:00 3.5 Below low normal 3.8-5.0 (g/dL) Final AST (Aspartate aminotransferase) 01/11/2025 06:39:00 67 Above high normal 10-35 (U/L) Final Alk Phos 01/11/2025 06:39:00 510 Above high normal 35-130 (U/L) Final ALT (Alanine aminotransferase) 01/11/2025 06:39:00 42 Above high normal 10-35 (U/L) Final Bilirubin, Total 01/11/2025 06:39:00 1.0 <=1.2 (mg/dL) Final Bilirubin, Direct 01/11/2025 06:39:00 0.5 Above high normal 0.0-0.3 (mg/dL) Final Protein 01/11/2025 06:39:00 5.9 Below low normal 6.0-8.3 (g/dL) Final Performing Location LAB[facility]ORY [facility] [place] [place] [address] [place] [id number]
--- OUTSIDE RECORDS SUMMARY | 2025-02-12 16:12 | External Medical Summary ---
Author Name Unknown Address Unknown Organization K01:LABORATORY [facility] [place] - [address] [facility] [address] Laboratory Report Ordering Provider Test Date Status HO AMBROSIO 01/14/2025 06:54:00 Final Observation Date Value Abnormality Reference (Units ) Status BUN 01/14/2025 06:54:00 9 6-20 (mg/dL) Final Creatinine 01/14/2025 06:54:00 0.6 0.5-1.0 (mg/dL) Final Glomerular filtration rate/1.73 sq M.predicted [Volume Rate/Area] in Serum, Plasma or Blood by Creatinine-based formula (CKD-EPI) 01/14/2025 06:54:00 >90 >=60 (mL/min) Final eGFR is calculated based on the CKD-EPI 2020 equation. Sodium 01/14/2025 06:54:00 140 135-146 (m mol/L) Final Potassium 01/14/2025 06:54:00 3.7 3.5-5.1 (m mol/L) Final Cl 01/14/2025 06:54:00 102 98-107 (mm ol/L) Final CO2 01/14/2025 06:54:00 26 22-32 (mmo l/L) Final Anion gap 01/14/2025 06:54:00 12 7-15 (mmol /L) Final Glucose 01/14/2025 06:54:00 129 Above high normal 70 -120 (mg/dL) Final Calcium 01/14/2025 06:54:00 9.1 8.4-10.2 ( mg/dL) Final Performing Location LABORATORY [facility] [place] - [address] [facility] [address]
--- OUTSIDE RECORDS SUMMARY | 2025-02-12 16:12 | External Medical Summary ---
Author Name Unknown Address Unknown Organization [id number]:LABORATORY [facility] [place] [address] [facility] [address] Laboratory Report Ordering Provider Test Date Status HO AMBROSIO 01/11/2025 06:39:00 Final Observation Date Value Abnormality Reference (Units ) Status BUN 01/11/2025 06:39:00 8 6-20 (mg/dL) Final Creatinine 01/11/2025 06:39:00 0.6 0.5-1.0 (mg/dL) Final Glomerular filtration rate/1.73 sq M.predicted [Volume Rate/Area] in Serum, Plasma or Blood by Creatinine-based formula (CKD-EPI) 01/11/2025 06:39:00 >90 >=60 (mL/min) Final eGFR is calculated based on the CKD-EPI 2020 equation. Sodium 01/11/2025 06:39:00 142 135-146 (m mol/L) Final Potassium 01/11/2025 06:39:00 3.6 3.5-5.1 (m mol/L) Final Cl 01/11/2025 06:39:00 103 98-107 (mm ol/L) Final CO2 01/11/2025 06:39:00 27 22-32 (mmo l/L) Final Anion gap 01/11/2025 06:39:00 12 7-15 (mmol /L) Final Glucose 01/11/2025 06:39:00 125 Above high normal 70 -120 (mg/dL) Final Calcium 01/11/2025 06:39:00 8.9 8.4-10.2 ( mg/dL) Final Performing Location LABORATORY [facility] [place] [address] [facility] [address]
--- OUTSIDE RECORDS SUMMARY | 2025-02-12 16:12 | External Medical Summary ---
Author Name Unknown Address Unknown Organization [id number]:[place] [facility] [place] [address] [place] [address] Laboratory Report Ordering Provider Test Date Status DAILYHO 01/14/2025 06:54:00 Final Observation Date Value Abnormality Reference (Units ) Status Albumin 01/14/2025 06:54:00 3.3 Below low normal 3.8-5.0 (g/dL) Final AST (Aspartate aminotransferase) 01/14/2025 06:54:00 58 Above high normal 10-35 (U/L) Final Alk Phos 01/14/2025 06:54:00 472 Above high normal 35-130 (U/L) Final ALT (Alanine aminotransferase) 01/14/2025 06:54:00 36 Above high normal 10-35 (U/L) Final Bilirubin, Total 01/14/2025 06:54:00 0.7 <=1.2 (mg/dL) Final Bilirubin, Direct 01/14/2025 06:54:00 0.4 Above high normal 0.0-0.3 (mg/dL) Final Protein 01/14/2025 06:54:00 6.3 6.0-8.3 (g/dL) Final Performing Location [facility] [facility] [place] [address] [place] [address]
--- OUTSIDE RECORDS SUMMARY | 2025-02-12 16:12 | External Medical Summary ---
Author Name Unknown Address Unknown Organization [id number]:LABORATORY [facility] [place] - [address] [facility] [address] Laboratory Report Ordering Provider Test Date Status HO AMBROSIO 01/12/2025 05:52:00 Final Observation Date Value Abnormality Reference (Units ) Status BUN 01/12/2025 05:52:00 10 6-20 (mg/dL) Final Creatinine 01/12/2025 05:52:00 0.7 0.5-1.0 (mg/dL) Final Glomerular filtration rate/1.73 sq M.predicted [Volume Rate/Area] in Serum, Plasma or Blood by Creatinine-based formula (CKD-EPI) 01/12/2025 05:52:00 >90 >=60 (mL/min) Final eGFR is calculated based on the CKD-EPI 2020 equation. Sodium 01/12/2025 05:52:00 141 135-146 (m mol/L) Final Potassium 01/12/2025 05:52:00 4.0 3.5-5.1 (m mol/L) Final Cl 01/12/2025 05:52:00 101 98-107 (mm ol/L) Final CO2 01/12/2025 05:52:00 30 22-32 (mmo l/L) Final Anion gap 01/12/2025 05:52:00 10 7-15 (mmol /L) Final Glucose 01/12/2025 05:52:00 120 70-120 (mg /dL) Final Calcium 01/12/2025 05:52:00 9.2 8.4-10.2 ( mg/dL) Final Performing Location LABORATORY [facility] [place] - [address] [facility] [address]
--- OUTSIDE RECORDS SUMMARY | 2025-02-12 16:12 | External Medical Summary ---
Author Name Unknown Address Unknown Organization K01:LABORATORY [facility] [place] [facility] [address] [facility] [address] Laboratory Report Ordering Provider Test Date Status HO AMBROSIO 01/13/2025 06:43:00 Final Observation Date Value Abnormality Reference (Units ) Status BUN 01/13/2025 06:43:00 8 6-20 (mg/dL) Final Creatinine 01/13/2025 06:43:00 0.6 0.5-1.0 (mg/dL) Final Glomerular filtration rate/1.73 sq M.predicted [Volume Rate/Area] in Serum, Plasma or Blood by Creatinine-based formula (CKD-EPI) 01/13/2025 06:43:00 >90 >=60 (mL/min) Final eGFR is calculated based on the CKD-EPI 2020 equation. Sodium 01/13/2025 06:43:00 137 135-146 (m mol/L) Final Potassium 01/13/2025 06:43:00 3.3 Below low normal 3.5 -5.1 (mmol/L) Final Cl 01/13/2025 06:43:00 99 98-107 (mm ol/L) Final CO2 01/13/2025 06:43:00 28 22-32 (mmo l/L) Final Anion gap 01/13/2025 06:43:00 10 7-15 (mmol /L) Final Glucose 01/13/2025 06:43:00 157 Above high normal 70 -120 (mg/dL) Final Calcium 01/13/2025 06:43:00 9.2 8.4-10.2 ( mg/dL) Final Performing Location LABORATORY [facility] [place] - [address] [facility] [address]
--- OUTSIDE RECORDS SUMMARY | 2025-02-12 16:12 | External Medical Summary ---
Author Name Unknown Address Unknown Organization K01:[place] [facility] [place] [address] [facility] [address] Laboratory Report Ordering Provider Test Date Status HO AMBROSIO 01/11/2025 06:39:00 Final Observation Date Value Abnormality Reference (Units ) Status Alpha-Fetoprotein 01/11/2025 06:39:00 8672.0 Above high normal 0.0-8.3 (ng/mL) Final Performing Location LABORATORY C - [address] [facility] [address]
--- OUTSIDE RECORDS SUMMARY | 2025-02-12 16:13 | External Medical Summary ---
Author Name Unknown Address Unknown Organization K01:[place] [facility] [place] [address] [facility] [address] Laboratory Report Ordering Provider Test Date Status HO AMBROSIO 01/08/2025 05:52:00 Final Observation Date Value Abnormality Reference (Units ) Status BUN 01/08/2025 05:52:00 11 6-20 (mg/dL) Final Creatinine 01/08/2025 05:52:00 0.6 0.5-1.0 (mg/dL) Final Glomerular filtration rate/1.73 sq M.predicted [Volume Rate/Area] in Serum, Plasma or Blood by Creatinine-based formula (CKD-EPI) 01/08/2025 05:52:00 >90 >=60 (mL/min) Final eGFR is calculated based on the CKD-EPI 2020 equation. Sodium 01/08/2025 05:52:00 138 135-146 (m mol/L) Final Potassium 01/08/2025 05:52:00 3.3 Below low normal 3.5 -5.1 (mmol/L) Final Cl 01/08/2025 05:52:00 104 98-107 (mm ol/L) Final CO2 01/08/2025 05:52:00 21 Below low normal 22- 32 (mmol/L) Final Anion gap 01/08/2025 05:52:00 13 7-15 (mmol /L) Final Glucose 01/08/2025 05:52:00 165 Above high normal 70 -120 (mg/dL) Final Calcium 01/08/2025 05:52:00 8.7 8.4-10.2 ( mg/dL) Final Performing Location [facility] [place] [facility] [address] [facility] [address]
--- OUTSIDE RECORDS SUMMARY | 2025-02-12 16:13 | External Medical Summary | Summary of Care ---
Author Name Unknown Organization [facility] Address [address] [place] [address] Phone [phone] Care Team Providers Care Unemployment Specialist Name Role Phone Jay Gonzales MD Primary Care Provi [facility] Encounter Details Date Type Department Care Team ([facility] Contact Info) Description 01/06/2025 Telephone [facility] [address] [place] [address] Jay Gonzales MD [address] [place] [phone] Allergies No known active allergiesdocumented as of this encounter (statuses as of 01/06/2025) Medications Multiple Vitamins-Minera ls (CENTRUM ADULTS) TABS Take by mouth daily. Active QUEtiapine Fumarate 25 MG Oral Tablet (SEROquel)Indic ations:Mood disorder (HCC) Take 1 Tablet by mouth at bedtime. 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 90 Tablet 3 09/14/2024 Active Venlafaxine HCl ER 150 MG Oral Capsule Extended Release 24 Hour (Effexor XR)Indications: Mood disorder (HCC) TAKE 1 CAPSULE BY MOUTH EVERY DAY DO NOT CUT, CRUSH, OR CHEW 90 Capsule 1 11/15/2024 Active Venlafaxine HCl ER 75 MG Oral Capsule Extended Release 24 Hour (Effexor XR)Indications: Mood disorder (HCC) TAKE 1 CAPSULE BY MOUTH DAILY. DO NOT CUT, CRUSH OR CHEW (TAKE WITH [id number] DAILY) 90 Capsule 1 11/15/2024 Active Gabapentin 100 MG Oral Capsule (Neurontin) Take 1 Capsule by mouth in the morning and 1 Capsule at noon and 1 Capsule before bedtime. Slowly increase the dose over 3 weeks--Start with one capsule in the evening for the first week. Add the afternoon dose on week 2 and the morning dose on week 3.. 90 Capsule 5 11/30/2024 Active Vancomycin HCl 125 MG Oral Capsule (Vancocin)Indic ations:Clostrid ium difficile enteritis Take 1 Capsule by mouth every 6 hours. 56 Capsule 12/15/2024 Active Ventolin HFA 108 (90 Base) MCG/ACT Inhalation Aerosol SolutionIndicat ions:Wheezing Inhale 2 Puffs by mouth every 4 hours as needed for Wheezing. 6.7 g 3 12/28/2024 Active Fidaxomicin 200 MG Oral Tablet (Dificid)Indica tions:C. difficile diarrhea Take 1 Tablet by mouth in the morning and 1 Tablet before bedtime. 20 Tablet 12/31/2024 Active documented as of this encounter (statuses as of 01/06/2025) Active Problems Problem Noted Date Diagnosed Date Acute hypoxic respiratory failure 01/06/2025 Elevated transaminase level 01/06/2025 Cholelithiasis 01/06/2025 Recurrent major depressive disorder 12/30/2024 Compensated [...] as of this encounter (statuses as of 01/06/2025) Resolved Problems Problem Noted Date Diagnosed Date Resolved Date OTHER 11/15/2009 08/20/2018 Overview (11/20/2009): Genotype 1a Chronic hepatitis C 09/21/2009 08/20/20 18 documented as of this encounter (statuses as of 01/06/2025) Immunizations Name Administration Dates Next Due TDAP, [...] PM EDT documented as of this encounter Miscellaneous Notes * Telephone Encounter - Dilia Urena OSA - 01/06/2025 10:06 AM EDT 01/06/[address] Scan were sent to [facility] and letter was also mailed to thept. documented in this encounter Plan of Treatment Upcoming Encounters Date Type Department Care Team (Late st Contact Info) Description 01/14/2025 8:30 AM EDT Appointment Interventional Radiology [facility] [place], [address] [place] [address] 01/17/2025 2:30 PM EDT Telemedicine Orthopaedics, [facility] [address] [place] [phone] Sg Storm PA-C [address] [place] [address] 01/27/2025 8:30 AM EDT Appointment Interventional Radiology [facility] [place], [facility] [address] [place] [address] 01/27/2025 11:00 AM EDT Appointment Radiology, [place] [address] [place] [address] 01/27/2025 11:30 AM EDT Appointment Radiology, [address] [address] 02/10/2025 1:00 PM EDT Office Visit Hematology/Oncology [facility] [address] [place] [phone] Tunde Plunkett MD [address] [place] [address] 02/25/2025 11:00 AM EDT Office Visit [address] [phone] Jay Gonzales MD [address] [place] [phone] Scheduled Procedures Name Priority Associated Diagnoses Date/Ti me COLONOSCOPY FLEXIBLE PROXIMA L DIAGNOSTIC Recall Personal history of colonic polyps Health Maintenance Due Date Last Done Comments Albumin/Creatinine Ratio 1977 Pneumococcal Vaccine: 50+ Years (1 of 2 - PCV) 1978 Mammogram 1999 Cologuard 2004 Fecal Occult Blood Test 2004 Sigmoidoscopy 2004 Zoster Vaccines (1 of 2) 2009 Hepatitis B Vaccine (1 of 3 - Risk 3-dose series) 2019 Depression Monitoring 06/25/2023 06/25/2022 Colonoscopy 05/06/2024 05/06/2019, 04/19, 10/31/2014, Additional history exists Colorectal Cancer Screening 05/06/2024 COVID-19 Vaccine ( season) 2024 Influenza Vaccine (FLU shot) (#1) 2024 DXA Scan 2024 *BASELINE EKG FOR HTN 12/30/2024 GFR 01/06/2026 01/06/2025, 12/18, 11/30/2024, Additional history exists Diabetes Screening 01/07/2028 01/06/2025, 0 01/05/2025, 11/30/2024, Additional history exists Lipid Panel 08/23/2029 08/23/2024, [...] Advance Directives occurred with: Patient Care Teams Unemployment Specialist Relationship Specialty Start Date End Date Jay Gonzales MD [address] [place] [phone] PCP - General Family Medicine 09/13/22 documented as of this encounter
--- OUTSIDE RECORDS SUMMARY | 2025-02-12 16:13 | External Medical Summary ---
Author Name Unknown Address Unknown Organization K01:LABORATORY [facility] [place] - [address] [place] [address] Laboratory Report Ordering Provider Test Date Status HO AMBROSIO 01/09/2025 04:59:00 Final Warfarin Therapy
INR: 2 .0-3.0 conventional anticoagulation
INR: 2.5- 3.5 high intensity anticoagulation Observation Date Value Abnormality Reference (Units ) Status PT 01/09/2025 04:59:00 18.0 Above high normal 11 .6-15.2 (seconds) Final INR 01/09/2025 04:59:00 1.5 Above high normal 0. 8-1.2 Final Performing Location LABORATORY [facility] [place] - [address] [place] [address]
--- OUTSIDE RECORDS SUMMARY | 2025-02-12 16:13 | External Medical Summary ---
Author Name Unknown Address Unknown Organization K01:[place] [facility] [place] [address] [facility] [place] [address] Laboratory Report Ordering Provider Test Date Status JAMILA ARENAS 01/07/2025 08:48:00 Final Observation Date Value Abnormality Reference (Units ) Status BUN 01/07/2025 08:48:00 11 6-20 (mg/dL) Final Creatinine 01/07/2025 08:48:00 0.8 0.5-1.0 (mg/dL) Final Glomerular filtration rate/1.73 sq M.predicted [Volume Rate/Area] in Serum, Plasma or Blood by Creatinine-based formula (CKD-EPI) 01/07/2025 08:48:00 88 >=60 (mL/min) Final eGFR is calculated based on the CKD-EPI 2020 equation. Sodium 01/07/2025 08:48:00 136 135-146 (m mol/L) Final Potassium 01/07/2025 08:48:00 3.8 3.5-5.1 (m mol/L) Final Cl 01/07/2025 08:48:00 102 98-107 (mm ol/L) Final CO2 01/07/2025 08:48:00 23 22-32 (mmo l/L) Final Anion gap 01/07/2025 08:48:00 11 7-15 (mmol /L) Final Glucose 01/07/2025 08:48:00 132 Above high normal 70 -120 (mg/dL) Final Albumin 01/07/2025 08:48:00 3.5 Below low normal 3.8 -5.0 (g/dL) Final AST (Aspartate aminotransferase) 01/07/2025 08:48:00 106 Above high normal 10-35 (U/L) Final Results may be falsely eleva deacon due to hemolysis. Alk Phos 01/07/2025 08:48:00 520 Above high normal 35 -130 (U/L) Final Bilirubin, Total 01/07/2025 08:48:00 1.5 Above high no rmal <=1.2 (mg/dL) Final Calcium 01/07/2025 08:48:00 9.1 8.4-10.2 ( mg/dL) Final Protein 01/07/2025 08:48:00 6.5 6.0-8.3 (g /dL) Final ALT (Alanine aminotransferase) 01/07/2025 08:48:00 45 Above high normal 10-35 (U/L) Final Performing Location LABORATORY C - [address] [facility] [address]
--- OUTSIDE RECORDS SUMMARY | 2025-02-12 16:13 | External Medical Summary ---
Author Name Unknown Address Unknown Organization K01:LABORATORY [facility] [place] - [facility] [address] [facility] [address] [place] [address] Laboratory Report Ordering Provider Test Date Status DAILYHO 01/09/2025 04:59:00 Final Observation Date Value Abnormality Reference (Units ) Status Albumin 01/09/2025 04:59:00 3.2 Below low normal 3.8-5.0 (g/dL) Final AST (Aspartate aminotransferase) 01/09/2025 04:59:00 67 Above high normal 10-35 (U/L) Final Alk Phos 01/09/2025 04:59:00 487 Above high normal 35-130 (U/L) Final ALT (Alanine aminotransferase) 01/09/2025 04:59:00 42 Above high normal 10-35 (U/L) Final Bilirubin, Total 01/09/2025 04:59:00 0.8 <=1.2 (mg/dL) Final Bilirubin, Direct 01/09/2025 04:59:00 0.4 Above high normal 0.0-0.3 (mg/dL) Final Protein 01/09/2025 04:59:00 6.1 6.0-8.3 (g/dL) Final Performing Location LABORATORY [facility] [place] - [address] [place] [address]
--- OUTSIDE RECORDS SUMMARY | 2025-02-12 16:13 | External Medical Summary | Summary of Care ---
Author Name Unknown Organization [facility] Address [address] [place] [address] Phone [phone] Care Team Providers Care Summer Camp Counselor Name Role Phone Jay Gonzales MD Primary Care Provi syl Reason for Visit * Precert (Within 10 days (routine)) - Authorized Specialty Diagnoses / Procedures Referred By Vaibhav roldan Referred To Contact Radiology Diagnoses Hepatocellular carcinoma (HCC) Abnormal x-ray Procedures CT CHEST WO CONTRAST Casie Liang MD [address] [place] [address] Phone: tel: fax: Referral ID Status Reason Start Date Expiration Date V isits Requested Visits Authorized [id number] Authorized 01/01/2025 [id number] Encounter Details Date Type Department Care Team (Latest Contact Info) Description 01/05/2025 12:47 PM EDT - 01/05/2025 8:10 PM EDT Hospital Encounter Radiology, [facility] [address] [place] [phone] Arrived Discharge Disposition: Home - Self Care Allergies [...] NOT CUT, CRUSH OR CHEW (TAKE WITH [id number] DAILY) 90 Capsule 1 5 Active Gabapentin [...] 1 Tablet before bedtime. 20 Tablet 5 Active Vancomycin HCl 125 MG Oral Capsule (Vancocin)Indic ations:Clostrid ium difficile enteritis Take 1 Capsule by mouth every 6 hours. 56 Capsule 5 01/07/20 25 Discontinu ed(Medicat ion List Clean Up) documented as of this encounter (statuses as [...] PM EDT documented as of this encounter Plan of Treatment Upcoming Encounters Date Type Department Care Team (Late st Contact Info) Description 01/14/2025 8:30 AM EDT Appointment Interventional Radiology [facility] [place], [address] [place] [address] 01/17/2025 2:30 PM EDT Telemedicine Orthopaedics, [facility] [address] [place] [phone] Sg Storm PA-C [address] [place] [address] 01/27/2025 8:30 AM EDT Appointment Interventional Radiology [facility], [facility] [address] [place] [address] 01/27/2025 11:00 AM EDT Appointment Radiology, [place] [address] [place] [address] 01/27/2025 11:30 AM EDT Appointment Radiology, [address] [address] 02/10/2025 1:00 PM EDT Office Visit Hematology/Oncology [facility] [address] [facility] [place] [phone] Tunde Plunkett MD [address] [facility] [place] [address] 02/25/2025 11:00 AM EDT Office Visit [address] [phone] Jay Gonzales MD [address] [place] [phone] Scheduled Procedures Name Priority Associated Diagnoses [...] Vaccine (FLU shot) (#1) 2024 Diabetes Screening 01/07/2028 01/06/2025, 0 01/05/2025, 11/30/2024, Additional history exists Lipid Panel 08/23/2029 08/23/2024, 08/, 08/11/2020, Additional history exists DTap/Tdap Vaccines (3 - Td or Tdap) 04/28/2033 04/28/2023, 07/03/2009 Cervical Cancer Screening Discontinued Pap Smear Discontinued 09/11/2009, 09/11/2009 RETIRED - COLONOSCOPY-EVERY 5 YRS AGES 18-100 Discontinued 05/06/2019, 05/06/2019, 10/31/2014, Additional history exists *BASELINE EKG FOR HTN Completed 01/05/2025 HPV (Gardasil) Vaccine Aged Out No lo [...] Procedure Name Priority Date/Time Associated Diagnosis Comments CT CHEST WO CONTRAST Routine 01/05/2025 12:53 PM EDT Hepatocellular carcinoma (HCC) Abnormal x-ray documented in this encounter Results * CT CHEST WO CONTRAST (01/05/2025 12:53 PM EDT) Anatomical Region Laterality Modality Chest, Body, Cardio Computed Armani ography 01/05/2025 12:4 6 PM EDT Impressions 01/05/2025 9:30 PM EDT IMPRESSION: 1. Right posterior pleural-based mass with erosive/destructive changes of the right posterior 6th rib highly suspicious for neoplastic disease. 2. Right scapular lesion highly suspicious for bony metastasis. 3. Ground-glass 3 mm nodule left lung anteriorly nonspecific. 4. 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 THIS DOCUMENT HAS BEEN ELECTRONICALLY SIGNED BY FAUSTO BAUTISTA MD Narrative 01/05/2025 9:30 PM EDT PROCEDURE INFORMATION: Exam: CT Chest Without Contrast; Diagnostic Exam date and time: 01/05/2025 12:46 PM Age: 64 years old Clinical indication: Liver cell carcinoma; Abnormal findings on diagnostic imaging of other specified body structures; Additional info: Abnormal xray, right lung opacity? TECHNIQUE: Imaging protocol: Diagnostic computed tomography of the chest without contrast. 3D rendering (Not supervised by radiologist): MIP and/or 3D reconstructed images were created by the technologist. Radiation optimization: All CT scans at this facility use at least one of these dose optimization techniques: automated exposure control; mA and/or kV adjustment per patient size (includes targeted exams where dose is matched to clinical indication); or iterative reconstruction. COMPARISON: CT CHEST W CONTRAST 10/14/2024 12:44 PM FINDINGS: Lungs: 3 mm ground-glass nodule left lung anteriorly (series 2, image number 27). Pleural spaces: See "Bones/joints" finding. Heart: Unremarkable. No cardiomegaly. No pericardial effusion. Lymph nodes: Unremarkable. No enlarged lymph nodes. Vasculature: Unremarkable. No aortic aneurysm. Liver: Cirrhotic morphology of the liver Spleen: Splenomegaly Intraperitoneal space: Small amount of perihepatic ascites noted Bones/joints: Pleural-based mass with erosion of adjacent rib in the posterior pleural space proximally 3.7 cm by 2.7 cm (series 2, image number 39 with destructive changes of the posterior 6th rib at this level. 2-1/2 cm expansile lytic lesion within the scapula at the posterior aspect of the acromion. Soft tissues: Unremarkable. Procedure Note Fausto Bautista MD - 01/05/2025 PROCEDURE INFORMATION: Exam: CT Chest Without Contrast; Diagnostic Exam date and time: 01/05/2025 12:46 PM Age: 64 years old Clinical indication: Liver cell carcinoma; Abnormal findings on diagnostic imaging of other specified body structures; Additional info: Abnormalxray, right lung opacity? TECHNIQUE: Imaging protocol: Diagnostic computed tomography of the chest withoutcontrast. 3D rendering (Not supervised by radiologist): MIP and/or 3D reconstructed images were created by the technologist. Radiation optimization: All CT scans at this facility use at least one ofthese dose optimization techniques: automated exposure control; mA and/or kV adjustment per patient size (includes targeted exams where dose is matchedto clinical indication); or iterative reconstruction. COMPARISON: CT CHEST W CONTRAST 10/14/2024 12:44 PM FINDINGS: Lungs: 3 mm ground-glass nodule left lung anteriorly (series 2, imagenumber 27). Pleural spaces: See "Bones/joints" finding. Heart: Unremarkable. No cardiomegaly. No pericardial effusion. Lymph nodes: Unremarkable. No enlarged lymph nodes. Vasculature: Unremarkable. No aortic aneurysm. Liver: Cirrhotic morphology of the liver Spleen: Splenomegaly Intraperitoneal space: Small amount of perihepatic ascites noted Bones/joints: Pleural-based mass with erosion of adjacent rib in theposterior pleural space proximally 3.7 cm by 2.7 cm (series 2, image number 39 with destructive changes of the posterior 6th rib at this level. 2-1/2 cmexpansile lytic lesion within the scapula at the posterior aspect of the acromion. Soft tissues: Unremarkable. IMPRESSION IMPRESSION: 1. Right posterior pleural-based mass with erosive/destructive changesof the right posterior 6th rib highly suspicious for neoplastic disease. 2. Right scapular lesion highly suspicious for bony metastasis. 3. Ground-glass 3 mm nodule left lung anteriorly nonspecific. 4. 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 THIS DOCUMENT HAS BEEN ELECTRONICALLY SIGNED BY FAUSTO BAUTISTA MD Casie Liang MD RAD CT Marisa l Result documented in this encounter Additional Health Concerns [...] Advance Directives occurred with: Patient Care Teams Summer Camp Counselor Relationship Specialty Start Date End Date Jay Gonzales MD [address] [place] [phone] PCP - General Family Medicine 09/13/22 documented as of this encounter
--- OUTSIDE RECORDS SUMMARY | 2025-02-12 16:13 | External Medical Summary ---
Author Name Unknown Address Unknown Organization [id number]:[place] [facility] [place] [facility] [address] [facility] [place] [address] Laboratory Report Ordering Provider Test Date Status HO AMBROSIO 01/08/2025 05:52:00 Final Observation Date Value Abnormality Reference (Units ) Status WBC, Total 01/08/2025 05:52:00 4.80 4.00-10.80 (K/uL) Final RBC 01/08/2025 05:52:00 3.26 3.85-5.15 (M/uL) Final Hemoglobin 01/08/2025 05:52:00 9.5 Below low normal 12.0-15.3 (g/dL) Final HCT 01/08/2025 05:52:00 30.9 Below low normal 36.0-45.2 (%) Final MCV 01/08/2025 05:52:00 94.8 81.5-97.5 (fL) Final MCH 01/08/2025 05:52:00 29.1 27.0-34.0 (pg) Final MCHC 01/08/2025 05:52:00 30.7 32.0-36.0 (g/dL) Final RDW 01/08/2025 05:52:00 16.0 11.5-15.5 (%) Final Platelets 01/08/2025 05:52:00 59 Below low normal 140-400 (K/uL) Final MPV 01/08/2025 05:52:00 13.0 6.6-11.1 (fL) Final Nucleated erythrocytes/100 leukocytes [Ratio] in Blood by Automated count 01/08/2025 05:52:00 0 <=0 (/100 WBCs) Final Performing Location [facility] [place] [address] [facility] [address]
--- OUTSIDE RECORDS SUMMARY | 2025-02-12 16:13 | External Medical Summary ---
Author Name Unknown Address Unknown Organization [id number]:[facility] [place] [address] [facility] [facility] [address] Laboratory Report Ordering Provider Test Date Status HO AMBROSIO 01/10/2025 06:02:00 Final Observation Date Value Abnormality Reference (Units ) Status BUN 01/10/2025 06:02:00 9 6-20 (mg/dL) Final Creatinine 01/10/2025 06:02:00 0.5 0.5-1.0 (mg/dL) Final Glomerular filtration rate/1.73 sq M.predicted [Volume Rate/Area] in Serum, Plasma or Blood by Creatinine-based formula (CKD-EPI) 01/10/2025 06:02:00 >90 >=60 (mL/min) Final eGFR is calculated based on the CKD-EPI 2020 equation. Sodium 01/10/2025 06:02:00 138 135-146 (m mol/L) Final Potassium 01/10/2025 06:02:00 3.3 Below low normal 3.5 -5.1 (mmol/L) Final Cl 01/10/2025 06:02:00 103 98-107 (mm ol/L) Final CO2 01/10/2025 06:02:00 24 22-32 (mmo l/L) Final Anion gap 01/10/2025 06:02:00 11 7-15 (mmol /L) Final Glucose 01/10/2025 06:02:00 131 Above high normal 70 -120 (mg/dL) Final Calcium 01/10/2025 06:02:00 8.8 8.4-10.2 ( mg/dL) Final Performing Location [facility] [place] [address] [facility] [address]
--- OUTSIDE RECORDS SUMMARY | 2025-02-12 16:13 | External Medical Summary ---
Author Name Unknown Address Unknown Organization [id number]:[facility] [place] - [facility] [address] [facility] [address] Laboratory Report Ordering Provider Test Date Status HO AMBROSIO 01/09/2025 04:58:00 Final Observation Date Value Abnormality Reference (Units ) Status WBC, Total 01/09/2025 04:58:00 4.50 4.00-10.80 (K/uL) Final RBC 01/09/2025 04:58:00 3.26 3.85-5.15 (M/uL) Final Hemoglobin 01/09/2025 04:58:00 9.6 Below low normal 12.0-15.3 (g/dL) Final HCT 01/09/2025 04:58:00 31.2 Below low normal 36.0-45.2 (%) Final MCV 01/09/2025 04:58:00 95.7 81.5-97.5 (fL) Final MCH 01/09/2025 04:58:00 29.4 27.0-34.0 (pg) Final MCHC 01/09/2025 04:58:00 30.8 32.0-36.0 (g/dL) Final RDW 01/09/2025 04:58:00 16.1 11.5-15.5 (%) Final Platelets 01/09/2025 04:58:00 63 Below low normal 140-400 (K/uL) Final MPV 01/09/2025 04:58:00 13.0 6.6-11.1 (fL) Final Nucleated erythrocytes/100 leukocytes [Ratio] in Blood by Automated count 01/09/2025 04:58:00 0 <=0 (/100 WBCs) Final Performing Location LABORATORY [facility] [place] - [address] [place] [address]
--- OUTSIDE RECORDS SUMMARY | 2025-02-12 16:13 | External Medical Summary ---
Author Name Unknown Address Unknown Organization [id number]:[facility]ATORY [facility] – [place] - [address] [place] [facility] [place] [address] Laboratory Report Ordering Provider Test Date Status HO AMBROSIO 01/09/2025 04:59:00 Final Observation Date Value Abnormality Reference (Units ) Status BUN 01/09/2025 04:59:00 9 6-20 (mg/dL) Final Creatinine 01/09/2025 04:59:00 0.6 0.5-1.0 (mg/dL) Final Glomerular filtration rate/1.73 sq M.predicted [Volume Rate/Area] in Serum, Plasma or Blood by Creatinine-based formula (CKD-EPI) 01/09/2025 04:59:00 >90 >=60 (mL/min) Final eGFR is calculated based on the CKD-EPI 2020 equation. Sodium 01/09/2025 04:59:00 139 135-146 (m mol/L) Final Potassium 01/09/2025 04:59:00 3.7 3.5-5.1 (m mol/L) Final Cl 01/09/2025 04:59:00 105 98-107 (mm ol/L) Final CO2 01/09/2025 04:59:00 23 22-32 (mmo l/L) Final Anion gap 01/09/2025 04:59:00 11 7-15 (mmol /L) Final Glucose 01/09/2025 04:59:00 152 Above high normal 70 -120 (mg/dL) Final Calcium 01/09/2025 04:59:00 8.6 8.4-10.2 ( mg/dL) Final Performing Location [facility]ORY [facility] [place] - [address] [facility] [address]
--- OUTSIDE RECORDS SUMMARY | 2025-02-12 16:13 | External Medical Summary ---
Author Name Unknown Address Unknown Organization [id number]:[facility]ORY [facility] [place] - [facility] [address] [place] [address] Laboratory Report Ordering Provider Test Date Status HO AMBROSIO 01/10/2025 06:02:00 Final Observation Date Value Abnormality Reference (Units ) Status Albumin 01/10/2025 06:02:00 3.4 Below low normal 3.8-5.0 (g/dL) Final AST (Aspartate aminotransferase) 01/10/2025 06:02:00 62 Above high normal 10-35 (U/L) Final Alk Phos 01/10/2025 06:02:00 492 Above high normal 35-130 (U/L) Final ALT (Alanine aminotransferase) 01/10/2025 06:02:00 39 Above high normal 10-35 (U/L) Final Bilirubin, Total 01/10/2025 06:02:00 0.8 <=1.2 (mg/dL) Final Bilirubin, Direct 01/10/2025 06:02:00 0.5 Above high normal 0.0-0.3 (mg/dL) Final Protein 01/10/2025 06:02:00 6.3 6.0-8.3 (g/dL) Final Performing Location [facility]ORY [facility] [place] - [address] [place] [address]
--- OUTSIDE RECORDS SUMMARY | 2025-02-12 16:13 | External Medical Summary ---
Author Name Unknown Address Unknown Organization [id number]:[facility] [place] [address] [place] [address] Laboratory Report Ordering Provider Test Date Status HO AMBROSIO 01/08/2025 05:52:00 Final Warfarin Therapy
INR: 2 .0-3.0 conventional anticoagulation
INR: 2.5- 3.5 high intensity anticoagulation Observation Date Value Abnormality Reference (Units ) Status PT 01/08/2025 05:52:00 18.3 Above high normal 11 .6-15.2 (seconds) Final INR 01/08/2025 05:52:00 1.5 Above high normal 0. 8-1.2 Final Performing Location [facility] [place] [address] [place] [address]
--- OUTSIDE RECORDS SUMMARY | 2025-02-12 16:13 | External Medical Summary ---
Author Name Unknown Address Unknown Organization [id number]:LAB[facility]ATORY [facility] – [place] - [address] [place] [address] Laboratory Report Ordering Provider Test Date Status HO AMBROSIO 01/10/2025 06:02:00 Final Warfarin Therapy
INR: 2 .0-3.0 conventional anticoagulation
INR: 2.5- 3.5 high intensity anticoagulation Observation Date Value Abnormality Reference (Units ) Status PT 01/10/2025 06:02:00 17.4 Above high normal 11 .6-15.2 (seconds) Final INR 01/10/2025 06:02:00 1.4 Above high normal 0. 8-1.2 Final Performing Location LABORATORY [facility] [place] - [address] [place] [address]
--- OUTSIDE RECORDS SUMMARY | 2025-02-12 16:13 | External Medical Summary ---
Author Name Unknown Address Unknown Organization K01[place] [facility] [place] [facility] [address] [facility] [address] Laboratory Report Ordering Provider Test Date Status JAMILA ARENAS 01/07/2025 08:48:00 Final Observation Date Value Abnormality Reference (Units ) Status WBC, Total 01/07/2025 08:48:00 5.97 4.00-10.80 (K/uL) Final RBC 01/07/2025 08:48:00 3.33 3.85-5.15 (M/uL) Final Hemoglobin 01/07/2025 08:48:00 9.7 Below low normal 12.0-15.3 (g/dL) Final HCT 01/07/2025 08:48:00 32.0 Below low normal 36.0-45.2 (%) Final MCV 01/07/2025 08:48:00 96.1 81.5-97.5 (fL) Final MCH 01/07/2025 08:48:00 29.1 27.0-34.0 (pg) Final MCHC 01/07/2025 08:48:00 30.3 32.0-36.0 (g/dL) Final RDW 01/07/2025 08:48:00 16.2 11.5-15.5 (%) Final Platelets 01/07/2025 08:48:00 55 Below low normal 140-400 (K/uL) Final MPV 01/07/2025 08:48:00 13.3 6.6-11.1 (fL) Final Nucleated erythrocytes/100 leukocytes [Ratio] in Blood by Automated count 01/07/2025 08:48:00 0 <=0 (/100 WBCs) Final Performing Location [place] [facility] [place] [address] [place] [address]
--- OUTSIDE RECORDS SUMMARY | 2025-02-12 16:13 | External Medical Summary | Summary of Care ---
Author Name Unknown Organization [facility] Address [address] [place] [address] Phone [phone] Care Team Providers Care Business Objects Report Developer Name Role Phone Jay Gonzales MD Primary Care Provi syl Reason for Visit * Reason Comments Fever Pt has fever and is being treated for C-DIFF,pt also with Chest Pain * Auth/Cert Specialty Diagnoses / Procedures Referred By Contac t Referred To Contact [facility] [address] [place] [address] Phone: tel:[phone] [facility] Emergency Department ([facility]) [address] [place] [address] Phone: tel: fax: Referral ID Status Reason Start Date Expiration Date Visits Re quested Visits Authorized [id number] Encounter Details Date Type Department Care Team (Late st Contact Info) Description 01/05/2025 8:11 PM EDT - 01/06/2025 1:05 AM EDT Emergency [facility] Emergency Department ([facility]) [address] [place] [address] Yesenia Jerez MD [address] [place], [place] [id number] Pleural mass (Primary Dx); SOB (shortness of breath); Sepsis (HCC); Acute respiratory failure with hypoxia (HCC) Discharge Disposition: Short Term Hospital Allergies No known active allergiesdocumented as of [...] NOT CUT, CRUSH OR CHEW (TAKE WITH [id number] DAILY) 90 Capsule 1 5 Active Gabapentin [...] 01/06/2025 Elevated transaminase level 01/06/2025 Cholelithiasis 01/06/2025 HCC (hepatocellular carcinoma) 01/06/2025 Pleural mass 01/06/2025 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 Palliative care encounter 01/06/2025 Recurrent major depressive disorder 12/30/2024 Compensated [...] Sign Reading Time Taken Comments Blood Pressure 150/75 01/06/2025 12:45 AM EDT Pulse 94 01/06/2025 12:45 AM EDT Temperature 36.7 °C (98.1 °F) 01/06/2025 12:56 AM E DT Respiratory Rate 16 01/06/2025 12:45 AM EDT Oxygen Saturation 93% 01/06/2025 12:45 AM EDT Inhaled Oxygen Concentration - - Weight 77.2 kg (170 lb 3.1 oz) 01/05/2025 8:20 P M EDT Height - - Body Mass Index 30.39 11/12/2024 11:53 AM EST documented in this encounter Procedure Notes * Navjot Laboy DO - 01/05/2025 8:32 PM EDTAssociated Order(s): EKG REASON FOR STUDY: SEPSIS CONCLUSIONS: Normal sinus rhythm Normal ECG No previous ECGs available Ventricular Rate: 98 Atrial Rate: 98 AK Interval: 112 QRS Duration: 74 QT/QTc: 352/449 ms P-R-T [place]: 69 : 61 : 45 degrees documented in this encounter ED Notes * Yesenia Jerez MD - 01/05/2025 8:59 PM EDT HISTORY OF PRESENT ILLNESS Neha Marks is a 64 year old female who presents to the ED for evaluation of Fever (Pt has fever and is being treated for C-DIFF,pt also with Chest Pain). The patient was seen at 01/05/252012. Patient is a 64-year-old female who presents to the Emergency Department for evaluation of chest painand fever. She notes that beginning today she has had severe right-sided chest pain. She currently rates it a /10. She notes associated cold symptoms recently and was sent for CT imaging of her chest but does not know the results of that yet. She is unsure about any fevers. Notes that she has been diagnosed with C diff recently. Also reports increasing shortness of breath. She states that her di arrhea has persisted despite being on multiple oral medications for C diff. Also notes that she hashad persistently frequent loose bowel movements that are foul- smelling. Denies abdominal pain, nausea or vomiting. Fever Review of Systems Constitutional: Positive for fever. The patient's allergies, past history, and medications were reviewed. PHYSICAL EXAM Initial Vitals (see all): BP 161/116 | Pulse 165 | Resp 20 | Temp 101.1 | O2 97 %, Room Air, None | Weight 77.2 kg | Height 159.4 cm | BMI 30.39 kg/m2 Initial Pain Assessment (see all): 10 (severe pain)/10 ([facility] Adult Scale 0-10 (18 years and older)) Physical Exam Constitutional: Appearance: She is normal weight. She is ill-appearing. Comments: Tearful HENT: Head: Normocephalic and atraumatic. Nose: Nose normal. Mouth/Throat: Mouth: Mucous membranes are moist. Eyes: Conjunctiva/sclera: Conjunctivae normal. Cardiovascular: Rate and Rhythm: Regular rhythm. Tachycardia present. Pulses: Normal pulses. Heart sounds: Normal heart sounds. No murmur heard. Pulmonary: Effort: Pulmonary effort is normal. No respiratory distress. Breath sounds: Wheezing present. No rhonchi or rales. Abdominal: General: Abdomen is flat. There is distension. Palpations: Abdomen is soft. Tenderness: There is no abdominal tenderness. There is no guarding or rebound. Musculoskeletal: General: Normal range of motion. Cervical back: Normal range of motion and neck supple. Right lower leg: No edema. Left lower leg: No edema. Skin: General: Skin is warm and dry. Neurological: General: No focal deficit present. Mental Status: She is alert. Psychiatric: Mood and Affect: Mood normal. Behavior: Behavior normal. PROCEDURES AND TREATMENTS ED Orders | ED Results MEDICAL DECISION MAKING Nursing notes and vital signs were reviewed. ED Course as of 01/05/252357Jan 05, 20252016 Febrile, tachycardic, hypertensive sepsis alert initiated. [JS] 2039 EKG per my interpretation normal sinus rhythm, 98 beats per minute, normal axis deviation, no STEMI changes [JS] 2040 Lactate, Whole Blood with Reflex if Abnormal Normal [JS] 2041 Blood Gas, Venous(!) Unremarkable [JS] 2046 CBC with WBC Differential(!) Hgb 11.4 anemia at baseline. No leukocytosis. [JS] 2053 aPTT Normal [JS] 2054 PT INR(!) Slightly prolonged [JS] 2057 Comprehensive Metabolic Panel(!) Transaminitis in the setting of chronic cirrhosis. Hypokalemic 3.4, hyperglycemic 159, normal kidney function [JS] 2129 Respiratory Pathogen Panel, PCR Negative [JS] 2129 Troponin T, High Sensitivity Normal [JS] 2129 XR Chest 1 View IMPRESSION 1. No acute cardiopulmonary findings. 2. Large lytic lesion in the posterior right 6th rib. [JS] 2130 CT chest findings from patient's outpatient CT of chest this AM. IMPRESSION: 1. Right posterior pleural-based mass with erosive/destructive changes of the right posterior 6th rib highly suspicious for neoplastic disease. 2. Right scapular lesion highly suspicious for bony metastasis. 3. Ground-glass 3 mm nodule left lung anteriorly nonspecific. 4. 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 [JS] 2303 CT Abd/Pelvis with IV contrast - without oral contrast IMPRESSION: 1. Extensive cirrhotic changes of the liver with 1.3 cm nodular density posterior exophytic right lobe may represent regenerating nodule but is nonspecific. MRI can further evaluate as clinically indicated. 2. Portal venous hypertension changes 3. Moderate abdominal and pelvic ascites 4. Tanisha hepatic adenopathy with nodes up to 5 cm in diameter. 5. Calcified gallstone with some pericholecystic fat ill distinctness which is nonspecific in the setting of ascites.Some linear calcification within the gallbladder wall is also suspected. If cholecystitis is suspected clinically ultrasound can further evaluate. [CS] 2304 Contacting [facility] transfer center [CS] 9397 Patient accepted to [facility] ED by Dr. Martínez Trivedi [CS] 2335 On my reassessment of patient, she is resting comfortably in bed. She is requiring 3 L of oxygen at this time. Patient reports her pain is well controlled. She was informed of CT chest/abdomen/pelvis findings and recommendation to transfer to [place]. Patient signed EMTALA. [CS] ED Course User Index [CS] Yesenia Jerez MD [JS] Liliane Chen PA-C Differential Diagnoses Based on my history, physical exam, and evaluation, the differential includes, but is not limited, to the following diagnoses: Upper respiratory infection, costochondritis, ACS, pneumonia, rib fracture, among others. Overall patient is ill-appearing noted initially to be febrile and tachycardic sepsis alert was initiated it. Patient noted to be hypoxic on room air and had expiratory wheezing 2 DuoNeb treatments were given and patient was placed on [address] imaging obtained from outpatient appointment earlier today noted to have significant right pleural-based mass that has eroding into the right posterior 6th ribs suspicious for neoplastic disease upon reexamination patient and her notethat she has a mass on her liver that she is getting worked up by Hematology/Oncology for and is scheduled to have radiation and chemotherapy in the next several weeks. She also notes that she has had a longstanding gallstone and given recent elevation of transaminitis CT imaging of abdomen was obtained as well. Patient is signed out to Dr. Jerez pending CT abdomen results and may require transfer for cholecystitis otherwise plan for admission given hypoxic respiratory failure likely secondary to neoplastic disease. Amount and/or Complexity of Data Reviewed Labs: ordered. Decision-making details documented in ED Course. Radiology: ordered. Decision-making details documented in ED Course. ECG/medicine tests: ordered. Risk Prescription drug management. Clinical Impressions SOB (shortness of breath) Sepsis (HCC) Pleural mass Acute respiratory failure with hypoxia (HCC) Disposition Transferred. The patient's condition at disposition was: stable. Comments ED Disposition Transferred Comment -- Yesenia Jerez was the attending physician who supervised the care of this patient. Liliane Chen PA-C ATTENDING ATTESTATION I have discussed the patient's management with the provider listed above and agree with the note, findings, and plan of care. I personally made/approved the management plan and take responsibility for patient management. I saw and evaluated the patient. My independent interpretation is documented in the ED Course or Procedure section above along with my name/initials and the date/time. My discussion of management is documented in the ED Course above along with my initials and the date/time. * Jose Woodard RN - 01/05/2025 8:23 PM EDT Pt has fever and is being treated for C-DIFF,pt also with Chest Pain documented in this encounter Miscellaneous Notes * Communication - Bri Holcomb RN - 01/06/2025 1:05 AM EDT Hand-Off - Nurse Communication Note Name: Neha Marks Location: Date: 01/06/2025 Time: 1:05 AM Nurse giving report: Bri Holcomb RN Nurse receiving report: CAREY Olsne at [facility] ED Reason for SBAR handoff: Transfer Immediate Concerns: none SITUATION: Admission date: 01/05/2025 Chief Complaint: Fever (Pt has fever and is being treated for C-DIFF,pt also with Chest Pain) Admitting diagnosis: Patient Service: Emergency Medicine [[id number]] Level of Care: Attending Provider: Yesenia Jerez MD Coming From:home BACKGROUND: Primary Care Physician: Jay Gonzales MD Past Medical History: Diagnosis Date 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 Problem list: Active Problems: * No active hospital problems. * Resolved Problems: * No resolved hospital problems. * Activity: ambulatory Fall Risk or Safety Concerns: None Isolation: None Isolation flowsheet: ASSESSMENT: Vital Signs: BP: 150/75 (01/06/2544) Temp: 36.7 °C (98.1 °F) (01/06/2555) Pulse: 94 (01/06/2544) Resp: 16 (01/06/2544) SpO2: 93 % (01/06/2544) Weight: 77.2 kg (170 lb 3.1 oz) (01/05/252019) Pain Assessment Flowsheet Row Most Recent Value Pain Assessment Scale Sleeping Pain Score 7 (severe pain) Fall Scale: Fall Score: 0 (01/05/252024) Fall Interventions: Bed at low level;Floor free of clutter;Non-skid foot covering on (01/05/252024) Neurological: Holcomb Coma Scale - For patients greater than two years old Eyes Open: Spontaneous (01/05/252019) Best Verbal Response: Verbally appropriate for age (01/05/252019) Best Motor Response: Obeys commands appropriate for age (01/05/252019) Coma Score: 15 (01/05/252019) Additional Neurological Information: none Respiratory: Respiratory WNL: X - Exceptions to WNL as documented below (01/05/252211) Respiratory Depth/Rhythm: Shallow (01/05/252211) Respiratory Effort: Unlabored (01/05/252211) O2 flow rate: 3 L/MIN (01/06/25 0000) Additional Respiratory Information: new on oxygen Cardiac: Cardiovascular WNL: X - Exceptions to WNL as documented below (01/05/252030) Rhythm: NSR;ST (01/05/252030) Extremities: +Sensation;Right;Left;Upper;Lower;Doran;Warm (01/05/252030) Additional Cardiac Information: none GI/: Additional GI/ Information: none Integumentary: Additional Integumentary Information: nond C-Diff: Restraints: No orders of the defined types were placed in this encounter. Medications: See MAR Lines: Peripheral Line Left Antecubital 18 Gauge (Active) Status Capped/Locked;Flushes easily;Positive blood return 01/05/252029 Phlebitis Scale 0 01/05/252029 Infiltration Scale 0 01/05/252029 Site Description (Other) Without redness, swelling or drainage 01/05/252029 Site Intervention Flushed 01/05/252029 Dressing Assessment Dressing clean, dry, and intact;Transparent dressing 01/05/252029 Dressing Intervention Applied 01/05/252029 Number of days: 1 Treatment: Currently being treated for C-diff Labs: Labs This Encounter COMPREHENSIVE METABOLIC PANEL - Abnormal; Notable for the following components: Result Value Ref Range POTASSIUM 3.4 3.5 - 5.1 mmol/L GLUCOSE 159 70 - 120 mg/dL AST 135 10 - 35 U/L Alkaline Phosphatase 620 35 - 130 U/L ALT 42 10 - 35 U/L All other components within normal limits PT INR - Abnormal; Notable for the following components: Prothrombin Time 16.5 11.6 - 15.2 seconds INR 1.3 0.8 - 1.2 All other components within normal limits Narrative: Warfarin Therapy INR: 2.0-3.0 conventional anticoagulation INR: 2.5-3.5 high intensity anticoagulation BLOOD GAS, VENOUS - Abnormal; Notable for the following components: Base Excess, Venous 5.3 -2.0 - 2.0 mmol/L All other components within normal limits CBC - Abnormal; Notable for the following components: HGB 11.4 12.0 - 15.3 g/dL HCT 35.5 36.0 - 45.2 % PLT 66 140 - 400 K/uL All other components within normal limits DIFFERENTIAL, AUTOMATED - Abnormal; Notable for the following components: Neutrophils % 77.0 40.0 - 75.0 % Lymphocytes % 9.8 18.0 - 42.0 % Monocytes % 11.2 1.0 - 11.0 % Absolute Lymphocytes 0.59 1.00 - 4.80 K/ul All other components within normal limits TROPONIN T, HIGH SENSITIVITY - Normal LACTATE, WHOLE BLOOD WITH REFLEX IF ABNORMAL - Normal APTT - Normal Narrative: Anticoagulation may affect testing. Refer to [facility] Test Catalog for a listof effects. RESPIRATORY PATHOGEN PANEL, PCR - Normal CBC WITH WBC DIFFERENTIAL Narrative: The following orders were created for panel order CBC WITH WBC DIFFERENTIAL. Procedure Abnormality Status --------- ------ CBC[[id number]] Abnormal Final result DIFFERENTIAL, AUTOMATED[[id number]] Abnormal Final result Please view results for these tests on the individual orders. PROCALCITONIN URINALYSIS, REFLEX TO CULTURE (NOT FOR NEUTROPENIC PATIENTS) Narrative: The following orders were created for panel order URINALYSIS, REFLEX TO CULTURE (NOT FOR NEUTROPENIC PATIENTS). Procedure Abnormality Status --------- ------ URINALYSIS, REFLEX TO CU...[[id number]] In process URINALYSIS, REFLEX TO CU...[[id number]] In process Please view results for these tests on the individual orders. CULTURE, BLOOD CULTURE, BLOOD MRSA SCREEN, PCR URINALYSIS, REFLEX TO CULTURE (CUP ONLY) URINALYSIS, REFLEX TO CULTURE GLUCOSE METER, POINT OF CARE (COMMUNICATION ORDER) GLUCOSE METER, POINT OF CARE (COMMUNICATION ORDER) GLUCOSE METER, POINT OF CARE (COMMUNICATION ORDER) GLUCOSE METER, POINT OF CARE (COMMUNICATION ORDER) GLUCOSE METER, POINT OF CARE (COMMUNICATION ORDER) GLUCOSE METER, POINT OF CARE (COMMUNICATION ORDER) GLUCOSE METER, POINT OF CARE (COMMUNICATION ORDER) GLUCOSE METER, POINT OF CARE (COMMUNICATION ORDER) Diet: No orders of the defined types were placed in this encounter. Additional Diet Information: per orders Intake and Output: No intake or output data in the 24 hours ending 01/06/25 0105 Patient Belongings and Home Medications RECOMMENDATIONS: Consults not completed: per orders Anticipated tests/studies/procedures: per orders Medication Reconcilliation completed for this Transfer? Yes * ED Band Top Maker Note - Bri Holcomb RN - 01/06/2025 12:52 AM EDT Patient OOB to bathroom prior to transfer. * ED Band Top Maker Note - Bri Holcomb RN - 01/06/2025 12:18 AM EDT Patient's has gone home for the night. Patient is sleeping at this time. Will continue to monitor. * ED Band Top Maker Note - Jose Woodard RN - 01/05/2025 11:58 PM EDT MICU 94 aware of transfer to [facility] is there now documented in this encounter Plan of Treatment Upcoming Encounters Date Type Department Care Team (Late st Contact Info) Description 01/14/2025 8:30 AM EDT Appointment Interventional Radiology [facility], [facility] [address] [place] [address] 01/17/2025 2:30 PM EDT Telemedicine Orthopaedics, [facility] [address] [place] [phone] Sg Storm PA-C [address] [place] [address] 01/27/2025 8:30 AM EDT Appointment Interventional Radiology [facility], [facility] [address] [place] [address] 01/27/2025 11:00 AM EDT Appointment Radiology, [place] [address] [place] [address] 01/27/2025 11:30 AM EDT Appointment Radiology, [place] [address] [place] [address] 02/10/2025 1:00 PM EDT Office Visit Hematology/Oncology [facility] [address] [facility] [place] [address] Tunde Plunkett MD [address] [place] [address] 02/25/2025 11:00 AM EDT Office Visit [address] [phone] Jay Gonzales MD [address] [place] [phone] Pending Results Name Type Priority Associated Diagnoses Date /Time CULTURE, BLOOD Lab STAT 01/05/2025 8:47 PM EDT CULTURE, BLOOD Lab STAT 01/05/2025 8:26 PM EDT Scheduled Orders Name Type Priority Associated Diagnoses Orde r Schedule EKG EKG STAT Sepsis (HCC) Perform Now for 1 Occurrences starting 01/05/2025 until 01/05/2025 Scheduled Procedures Name Priority Associated Diagnoses Date/Ti [...] Date/Time Associated Diagnosis Comments URINALYSIS, REFLEX TO CULTURE STAT 01/06/2025 12:56 AM EDT URINALYSIS, REFLEX TO CULTURE (CUP ONLY) STAT 01/06/2025 12:56 AM EDT URINALYSIS, REFLEX TO CULTURE (NOT FOR NEUTROPENIC PATIENTS) STAT 01/06/2025 12:[address] ABD/PELVIS W IV CONTRAST - WO ORAL CONTRAST STAT 01/05/2025 10:40 PM EDT CULTURE, BLOOD STAT 01/05/2025 8:47 PM EDT XR CHEST 1 VIEW STAT 01/05/2025 8:37 PM EDT RESPIRATORY PATHOGEN PANEL, PCR STAT 01/05/2025 8:34 PM EDT MRSA SCREEN, PCR Routine 01/05/2025 8:34 PM EDT HC ECG TRACING ONLY STAT 01/05/2025 8 :32 PM EDT SOB (shortness of breath) LACTATE, WHOLE BLOOD WITH REFLEX IF ABNORMAL STAT 01/05/2025 8:26 PM EDT DIFFERENTIAL, AUTOMATED STAT 01/05/2025 8:26 PM EDT TROPONIN T, HIGH SENSITIVITY STAT 01/05/2025 8:26 PM EDT PROCALCITONIN STAT 01/05/2025 8:26 PM EDT BLOOD GAS, VENOUS STAT 01/05/2025 8:2 6 PM EDT COMPREHENSIVE METABOLIC PANEL STAT 01/05/2025 8:26 PM EDT CBC STAT 01/05/2025 8:26 PM EDT PT INR STAT 01/05/2025 8:26 PM EDT CULTURE, BLOOD STAT 01/05/2025 8:26 PM EDT APTT STAT 01/05/2025 8:26 PM EDT CBC STAT 01/05/2025 8:26 PM EDT documented in this encounter Results * (ABNORMAL) URINALYSIS, REFLEX TO CULTURE (01/06/2025 12:56 AM EDT) Color, Urine Yellow Light Yellow, Yellow, Dark Yellow 01/06/2025 1:11 AM EDT LAB[facility]ORY [facility] Clarity, Urine Clear Clear 01/06/2025 1:11 AM EDT [facility] Glucose, Urine Negative Negative mg/dL 01/06/2025 1:11 AM EDT LAB[facility]ATORY [facility] Bilirubin, Urine Negative Negative 01/06/2025 1:11 AM EDT LAB[facility]ORY [facility] Ketone, Urine Negative Negative mg/dL 01/06/2025 1:11 AM EDT [facility] Specific Hungry Horse, Urine 1.015 1.003 - 1.030 01/06/2025 1:11 AM EDT [facility] Blood, Urine Trace(A) Negative 01/06/2025 1:11 AM EDT [facility] pH, Urine 6.0 5.0 - 7.5 Units 01/06/2025 1:11 AM EDT [facility] Protein, Urine Negative Negative mg/dL 01/06/2025 1:11 AM EDT [facility] Urobilinogen, Urine 0.2 0.2, 1.0 mg/dL 01/06/2025 1:11 AM EDT LABORATORY [facility] Nitrite, Urine Negative Negative 01/06/2025 1:11 AM EDT [facility] Esterase, Urine Negative Negative 01/06/2025 1:11 AM EDT [facility] RBC, Urine 3-5(A) 0 - 2 /HPF 01/06/2025 1:11 AM EDT [facility] WBC, Urine 0-2 0 - 2 /HPF 01/06/2025 1:11 AM EDT [facility] Bacteria, Urine 0-25 0 - 25 /HPF 01/06/2025 1:11 AM EDT [facility] Culture, Urine 01/06/2025 1:11 AM EDT [facility] Comment:Culture not indicate d by urinalysis results Urine Urine specimen obtained by clean catch procedure / Unknown Non-blood Collection / Unknown 01/06/2025 12:56 AM EDT 01/06/2025 12:58 AM EDT Liliane Chen PA-C LAB URINE ORDERABLES Final Re sult Performing Organization Address City/[facility]/ZIP Co de Phone Number LABORATORY [address] [phone] * URINALYSIS, REFLEX TO CULTURE (CUP ONLY) (01/06/2025 12:56 AM EDT) Urinalysis, Reflex to Culture Specimen Specimen collected and received 01/06/2025 2:00 AM EDT [facility] Urine Urine specimen obtained by clean catch procedure / Unknown Non-blood Collection / Unknown 01/06/2025 12:56 AM EDT 01/06/2025 12:58 AM EDT Liliane Chen PA-C LAB URINE ORDERABLES Final Re sult Performing Organization Address [facility] Co de Phone Number LABORATORY [address] [phone] * CT ABD/PELVIS W IV CONTRAST - WO ORAL CONTRAST (01/05/2025 10:40 PM EDT) Anatomical Region Laterality Modality Body, Abdomen, Pelvis Computed T omography 01/05/2025 10:3 1 PM EDT Impressions 01/05/2025 10:55 PM EDT IMPRESSION: 1. Extensive cirrhotic changes of the liver with 1.3 cm nodular density posterior exophytic right lobe may represent regenerating nodule but is nonspecific. MRI can further evaluate as clinically indicated. 2. Portal venous hypertension changes 3. Moderate abdominal and pelvic ascites 4. Tanisha hepatic adenopathy with nodes up to 5 cm in diameter. 5. Calcified gallstone with some pericholecystic fat ill distinctness which is nonspecific in the setting of ascites.Some linear calcification within the gallbladder wall is also suspected. If cholecystitis is suspected clinically ultrasound can further evaluate. THIS DOCUMENT HAS BEEN ELECTRONICALLY SIGNED BY NISA BAUTISTA MD Narrative 01/05/2025 10:55 PM EDT PROCEDURE INFORMATION: Exam: CT Abdomen And Pelvis [...] with dilated periuterine venous plexus. Lymph nodes: Tanisha hepatic adenopathy with nodes up to 5 cm in diameter. Urinary bladder: Unremarkable as visualized. Reproductive: Unremarkable as visualized. Bones/joints: Unremarkable. No acute fracture. Soft tissues: Unremarkable. Procedure Note Nisa Bautista MD - 01/05/2025 PROCEDURE INFORMATION: Exam: CT Abdomen And Pelvis With Contrast Exam date and time: 01/05/2025 10:31 PM Age: 64 years old Clinical indication: Condition or disease; Gallbladder condition; Calculus (stone); Additional info: Gallstone on previous imaging with increasedlfts. TECHNIQUE: Imaging protocol: Computed tomography of the abdomen and pelvis withcontrast. Radiation optimization: All CT scans at this facility use at least one ofthese dose optimization techniques: automated exposure control; mA and/or kV adjustment per patient size (includes targeted exams where dose is matchedto clinical indication); or iterative reconstruction. Contrast material: ISOVUE 370; Contrast volume: 80 ml; Contrast route: INTRAVENOUS (IV); COMPARISON: MRI LIVER W WO CONTRAST 06/05/2021 9:40 AM FINDINGS: Lungs: Dependent peripheral lung consolidation presumably atelectasis. Liver: Extensive cirrhotic changes of the liver with portal hypertensionand perihepatic fluid. 1.3 cm nodular density adjacent to the right lobe liver possibly regenerating nodule, nonspecific. Gallbladder and biliary ducts: Calcified gallstone within the gallbladderwith some possible gallbladder wall calcification and some ill distinct fataround the gallbladder which is a nonspecific finding in the setting of ascites. Pancreas: Normal. No ductal dilation. Spleen: Normal. No splenomegaly. Adrenal glands: Normal. No mass. Kidneys and ureters: Normal. No hydronephrosis. Stomach and bowel: Unremarkable. No obstruction. No mucosal thickening. Appendix: No evidence of appendicitis. Intraperitoneal space: Moderate pelvic ascites Vasculature: Numerous enhancing vessels in the pelvic consistent withdilated periuterine venous plexus. Lymph nodes: Tanisha hepatic adenopathy with nodes up to 5 [...] 3. Moderate abdominal and pelvic ascites 4. Tanisha hepatic adenopathy with nodes up to 5 cm in diameter. 5. Calcified gallstone with some pericholecystic fat ill distinctnesswhich is nonspecific in the setting of ascites.Some linear calcification withinthe gallbladder wall is also suspected. If cholecystitis is suspectedclinically ultrasound can further evaluate. THIS DOCUMENT HAS BEEN ELECTRONICALLY SIGNED BY NISA BAUTISTA MD us Liliane CAMPOS-C RAD CT Final Result * XR CHEST 1 VIEW (01/05/2025 8:37 PM EDT) Anatomical Region Laterality Modality Chest Computed Radiogr aphy 01/05/2025 9:27 PM EDT Impressions 01/05/2025 9:24 PM EDT IMPRESSION 1. No acute cardiopulmonary findings. 2. Large lytic lesion in the posterior right 6th rib. Narrative 01/05/2025 9:24 PM EDT EXAM XR CHEST 1 VIEW - 01/05/2025 8:37 pm HISTORY Sepsis TECHNIQUE Frontal view of the chest COMPARISON Chest CT 01/05/2025. FINDINGS Stable cardiomediastinal silhouette. No lobar consolidation, pleural effusion or pneumothorax. Large lytic lesion in the posterior right 6th rib. Procedure Note Mita Raines MD - 01/05/2025 EXAM XR CHEST 1 VIEW - 01/05/2025 8:37 pm HISTORY Sepsis TECHNIQUE Frontal view of the chest COMPARISON Chest CT 01/05/2025. FINDINGS Stable cardiomediastinal silhouette. No lobar consolidation, pleural effusion or pneumothorax. Large lytic lesion in the posterior right 6th rib. IMPRESSION IMPRESSION 1. No acute cardiopulmonary findings. 2. Large lytic lesion in the posterior right 6th rib. Liliane Chen PA-C RADIOLOGY (RAD GENERAL) Final Result * RESPIRATORY PATHOGEN PANEL, PCR (01/05/2025 8:34 PM EDT) Pathologist [facility] Adenovirus Negative Negative 01/05/2025 9:28 PM EDT [facility] Coronavirus 229E Negative Negative 01/06/20 9:28 PM EDT [facility] Coronavirus HKU1 Negative Negative 01/06/20 9:28 PM EDT [facility] Coronavirus NL63 Negative Negative 01/06/20 9:28 PM EDT [facility] Coronavirus OC43 Negative Negative 01/06/20 9:28 PM EDT [facility] Coronavirus SARS-CoV-2 Negative Negative 01/05/2025 9:28 PM EDT [facility] Human Metapneumovirus Negative Negative 01/05/2025 9:28 PM EDT [facility] Rhinovirus/Enterovi alley Negative Negative 01/05/2025 9:28 PM EDT [facility] Influenza A Negative Negative 01/05/2025 9:28 PM EDT [facility] Influenza B Negative Negative 01/05/2025 9:28 PM EDT [facility] Parainfluenza Virus 1 Negative Negative 01/05/2025 9:28 PM EDT [facility] Parainfluenza Virus 2 Negative Negative 01/05/2025 9:28 PM EDT [facility] Parainfluenza Virus 3 Negative Negative 01/05/2025 9:28 PM EDT [facility] Parainfluenza Virus 4 Negative Negative 01/05/2025 9:28 PM EDT [facility] Respiratory Syncytial Virus Negative Negative 01/05/2025 9:28 PM EDT [facility] Bordetella pertussis Negative Negative 01/05/2025 9:28 PM EDT [facility] Chlamydia pneumoniae Negative Negative 01/05/2025 9:28 PM EDT [facility] Mycoplasma pneumoniae Negative Negative 01/05/2025 9:28 PM EDT [facility] Bordetella parapertussis Negative Negative 01/05/2025 9:28 PM EDT [facility] Comment: The primers that detect Rhinovirus may cross react with some Enterorviruses. The validation of bronchial specimens, tracheal aspirates, and throats for this assay was developed and performance characteristics determined by [employer]. The validation of alternate specimen types has not been cleared or approved by the U.S. Food and Drug Administration (FDA). It has been determined that such clearance or approval is not necessary. Upper Respiratory Mid-turbinate nasal swab / Unknown Non-blood Collection / Unknown 01/05/2025 8:34 PM EDT 01/05/2025 8:36 PM EDT Liliane hCen PA-C LAB MICRO - GENERAL ORDERABLE S Final Result LABORATORY [address] [address] * MRSA SCREEN, PCR (01/05/2025 8:34 PM EDT) [facility] MRSA PCR Result Negative Negative 12:51 PM EDT LABORATORY C Comment:No Methicillin resis tant Staphylococcus aureus detected by PCR (amplified probe). Upper Respiratory Swab of internal nose / Unknown Non-blood Collection / Unknown 01/05/2025 8:34 PM EDT 01/05/2025 8:36 PM EDT Liliane Chen PA-C LAB MICRO - GENERAL ORDERABLE S Final Result [facility] [address] [place], [place] [id number] * EKG (01/05/2025 8:32 PM EDT) 01/05/2025 8:32 PM EDT Narrative Procedure Note Navjot Laboy, DO - 01/05/2025 8:32 PM EDT REASON FOR STUDY: SEPSIS CONCLUSIONS: Normal sinus rhythm Normal ECG No previous ECGs available Ventricular Rate: 98 Atrial Rate: 98 AK Interval: 112 QRS Duration: 74 QT/QTc: 352/449 ms P-R-T [place]: 69 : 61 : 45 degrees us Yesenia Jerez MD EKG Final Result [facility] CARDIOLOGY * (ABNORMAL) DIFFERENTIAL, AUTOMATED (01/05/2025 8:26 PM EDT) WBC 6.05 4.00 - 10.80 K/uL 01/05/2025 8:43 PM EDT [facility] Neutrophils % 77.0(H) 40.0 - 75.0 % 01/05/2025 8:43 PM EDT [facility] Lymphocytes % 9.8(L) 18.0 - 42.0 % 01/05/2025 8:43 PM EDT [facility] Monocytes % 11.2(H) 1.0 - 11.0 % 01/05/2025 8:43 PM EDT [facility] Eosinophils % 1.7 0.0 - 6.0 % 01/05/2025 8:43 PM EDT [facility] Basophils % 0.3 0.0 - 2.0 % 01/05/2025 8:43 PM EDT [facility] Absolute Neutrophils 4.66 1.80 - 7.70 K/uL 01/05/2025 8:43 PM EDT [facility] Absolute Lymphocytes 0.59(L) 1.00 - 4.80 K/ul 01/05/2025 8:43 PM EDT [facility] Absolute Monocytes 0.68 0.00 - 1.10 K/uL 01/05/2025 8:43 PM EDT [facility] Absolute Eosinophils 0.10 0.00 - 0.70 K/uL 01/05/2025 8:43 PM EDT [facility] Absolute Basophils 0.02 0.00 - 0.20 K/uL 01/05/2025 8:43 PM EDT [facility] Blood Venous blood specimen / Unknown Venipuncture / Unknown 01/05/2025 8:26 PM EDT 01/05/2025 8:36 PM EDT us Liliane Chen PA-C LAB BLOOD ORDERABLES Final Re sult [facility]ATORY [place] [id number] [place] [address] * (ABNORMAL) CBC (01/05/2025 8:26 PM EDT) WBC 6.05 4.00 - 10.80 K/uL 01/05/2025 8:43 PM EDT [facility] RBC 3.91 3.85 - 5.15 M/uL 01/05/2025 8:43 PM EDT [facility] HGB 11.4(L) 12.0 - 15.3 g/dL 01/05/2025 8:43 PM EDT [facility] HCT 35.5(L) 36.0 - 45.2 % 01/05/2025 8:43 PM EDT [facility] MCV 90.8 81.5 - 97.5 fL 01/05/2025 8:43 PM EDT [facility] MCH 29.2 27.0 - 34.0 pg 01/05/2025 8:43 PM EDT [facility] MCHC 32.1 32.0 - 36.0 g/dL 01/05/2025 8:43 PM EDT [facility] RDW 15.6 11.5 - 15.5 % 01/05/2025 8:43 PM EDT [facility] PLT 66(L) 140 - 400 K/uL 01/05/2025 8:43 PM EDT [facility] MPV 12.5 6.6 - 11.1 fL 01/05/2025 8:43 PM EDT [facility] Blood Venous blood specimen / Unknown Venipuncture / Unknown 01/05/2025 8:26 PM EDT 01/05/2025 8:36 PM EDT Liliane Chen PA-C LAB BLOOD ORDERABLES Final Re sult [facility] [place] [id number] [place] [address] * (ABNORMAL) BLOOD GAS, VENOUS (01/05/2025 8:26 PM EDT) Temperature 37.0 C 01/05/2025 8:41 PM EDT [facility] pH, Venous 7.428 7.320 - 7.430 units 01/05/2025 8:41 PM EDT [facility] pCO2, Venous 46.2 40.0 - 60.0 mmHg 01/05/2025 8:41 PM EDT [facility] pO2, Venous 39.0 25.0 - 50.0 mmHg 01/05/2025 8:41 PM EDT [facility] Base Excess, Venous 5.3(H) -2.0 - 2.0 mmol/L 01/05/2025 8:41 PM EDT [facility] HGB 12.2 12.0 - 15.3 g/dL 01/05/2025 8:41 PM EDT [facility] Oxyhemoglobin, Venous 72.6 40.0 - 85.0 % total Hgb 01/05/2025 8:41 PM EDT [facility] Carboxyhemoglobi n, Whole Blood 1.5 <=1.5 % total Hgb 01/05/2025 8:41 PM EDT [facility] Comment:Smokers: 0-9.0 % Methemoglobin, Whole Blood 0.6 <=1.5 % total Hgb 01/05/2025 8:41 PM EDT [facility] Reduced Hemoglobin, Venous 25.3 % total Hgb 01/05/2025 8:41 PM EDT [facility] O2 Content, Venous 12.5 7.0 - 18.0 %vol 01/05/2025 8:41 PM EDT [facility] Bicarbonate, Whole Blood 30.5 23.0 - 31.0 mmol/L 01/05/2025 8:41 PM EDT [facility] Blood Venous blood specimen / Unknown Venipuncture / Unknown 01/05/2025 8:26 PM EDT 01/05/2025 8:36 PM EDT Liliane Chen PA-C LAB BLOOD ORDERABLES Final Re sult Performing Organization Address [facility] Co de Phone Number LABORATORY [address] [address] * APTT (01/05/2025 8:26 PM EDT) aPTT 34 21 - 38 seconds 01/05/2025 8:50 PM EDT [facility] Blood Venous blood specimen / Unknown Venipuncture / Unknown 01/05/2025 8:26 PM EDT 01/05/2025 8:36 PM EDT Narrative [facility] - 01/05/2025 8:50 PM EDT Anticoagulation may affect testing. Refer to [facility] Test Catalog for a list of effects. Liliane Chen PA-C LAB BLOOD ORDERABLES Final Re sult Performing Organization Address [facility] de Phone Number LABORATORY [address] [address] * (ABNORMAL) PT INR (01/05/2025 8:26 PM EDT) Prothrombin Time 16.5(H) 11.6 - 15.2 seconds 01/05/2025 8:48 PM EDT [facility] INR 1.3(H) 0.8 - 1.2 01/05/2025 8:48 PM EDT [facility] Blood Venous blood specimen / Unknown Venipuncture / Unknown 01/05/2025 8:26 PM EDT 01/05/2025 8:36 PM EDT Narrative [facility] - 01/05/2025 8:48 PM EDT Warfarin Therapy INR: 2.0-3.0 conventional anticoagulation INR: 2.5-3.5 high intensity anticoagulation Liliane Chen PA-C LAB BLOOD ORDERABLES Final Re sult Performing Organization Address City/[facility]/ZIP Co de Phone Number LABORATORY [address] [address] * LACTATE, WHOLE BLOOD WITH REFLEX IF ABNORMAL (01/05/2025 8:26 PM EDT) [facility] Lactate 1.5 0.4 - 2.0 mmol/L 01/05/2025 8:41 PM EDT [facility] Blood Venous blood specimen / Unknown Venipuncture / Unknown 01/05/2025 8:26 PM EDT 01/05/2025 8:36 PM EDT Liliane Chen PA-C LAB BLOOD ORDERABLES Final Re sult Performing Organization Address [facility] Co de Phone Number LABORATORY [address] [phone] * TROPONIN T, HIGH SENSITIVITY (01/05/2025 8:26 PM EDT) [facility] Troponin T, High Sensitivity 6 <=14 ng/L 01/05/2025 9:18 PM EDT [facility] Blood Venous blood specimen / Unknown Venipuncture / Unknown 01/05/2025 8:26 PM EDT 01/05/2025 8:36 PM EDT Liliane Chen PA-C LAB BLOOD ORDERABLES Final Re sult Performing Organization Address City/[facility]/ZIP Co de Phone Number LABORATORY [address] [phone] * PROCALCITONIN (01/05/2025 8:26 PM EDT) [facility] Procalcitonin 0.08 <0.10 ng/mL 01/06/2025 11:55 AM EDT [facility]ORY [facility] Blood Venous blood specimen / Unknown Venipuncture / Unknown 01/05/2025 8:26 PM EDT 01/05/2025 8:36 PM EDT Narrative [facility] - 01/06/2025 11:55 AM EDT Less than 0.5 ng/mL: Low risk for progression to sepsis. Review patients condition for localized infections. 0.5 to 2.0 ng/mL: Intermediate risk for progresion to sepsis. Review underlying conditions. Recommend repeat PCT after 6 hours has elapsed. Greater than 2.0 ng/mL: high risk for progression to sepsis unless other causes are known. us Liliane Chen PA-C LAB BLOOD ORDERABLES Final Re sult [facility] [address] [place] [address] * (ABNORMAL) COMPREHENSIVE METABOLIC PANEL (01/05/2025 8:26 PM EDT) BUN 8 6 - 20 mg/dL 01/05/2025 8:56 PM EDT [facility] CREATININE 0.7 0.5 - 1.0 mg/dL 01/05/2025 8:56 PM EDT [facility] EGFR >90 >=60 mL/min 01/05/2025 8:56 PM EDT [facility] Comment:eGFR is calculated b ased on the CKD-EPI 2020 equation. SODIUM 137 135 - 146 mmol/L 01/05/2025 8:56 PM EDT [facility] POTASSIUM 3.4(L) 3.5 - 5.1 mmol/L 01/05/2025 8:56 PM EDT [facility] CHLORIDE 99 98 - 107 mmol/L 01/05/2025 8:56 PM EDT [facility] CO2 27 22 - 32 mmol/L 01/05/2025 8:56 PM EDT [facility] ANION GAP 11 7 - 15 mmol/L 01/05/2025 8:56 PM EDT [facility] GLUCOSE 159(H) 70 - 120 mg/dL 01/05/2025 8:56 PM EDT [facility] Albumin 4.1 3.8 - 5.0 g/dL 01/05/2025 8:56 PM EDT [facility] AST 135(H) 10 - 35 U/L 01/05/2025 8:56 PM EDT [facility] Alkaline Phosphatase 620(H) 35 - 130 U/L 01/05/2025 8:56 PM EDT [facility] Bilirubin, Total 1.0 <=1.2 mg/dL 01/05/2025 8:56 PM EDT [facility] CALCIUM 9.3 8.4 - 10.2 mg/dL 01/05/2025 8:56 PM EDT [facility] Protein 7.4 6.0 - 8.3 g/dL 01/05/2025 8:56 PM EDT [facility] ALT 42(H) 10 - 35 U/L 01/05/2025 8:56 PM EDT [facility] Blood Venous blood specimen / Unknown Venipuncture / Unknown 01/05/2025 8:26 PM EDT 01/05/2025 8:36 PM EDT Liliane Chen PA-C LAB BLOOD ORDERABLES Final Re sult [facility] [address] [place] [address] documented in this encounter Visit Diagnoses Diagnosis Right shoulder pain, unspecified chronicity- Primary Wheezing Limited range of motion (ROM) of shoulder Clostridium difficile enteritis Intestinal infection due to clostridium difficile Hepatocellular carcinoma (HCC) Malignant neoplasm of liver, primary 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) Chronic hepatitis C without mention of hepatic coma HTN, goal below 130/80 Unspecified essential hypertension Pleural mass- Primary Swelling, mass, or lump in chest SOB (shortness of breath) Shortness of breath Sepsis (HCC) Unspecified septicemia Acute respiratory failure with hypoxia (HCC) Acute respiratory failure documented in this encounter Administered Medications Inactive Administered Medications - up to 3 most recent administrations Medication Order MAR Action Action Date Dose Rate Site Acetaminophen (Ofirmev) inj 1,000 mg 1,000 mg, Intravenous, ONCE, 1 dose, On Fri01/05/25 at 2100, Administer over 15 Minutes, Administer undiluted over 15 minutes! NOTE: Maximum of 4000 mg per 24 hours of acetaminophen from all acetaminophen containing products., Indication: Patient is experiencing severe nausea and vomiting New Bag 01/05/2025 9:03 PM EDT 1,000 mg 400 mL/hr albuterol-ipratropium (Duoneb) inhalation solution 3 mL 3 mL, Nebulizer, ONCE, On Fri01/05/25 at 2100, For 1 dose, 3 mL = 0.5 mg ipratropium/ 2.5 mg albuterol Given 01/05/2025 8:46 PM EDT 3 mL albuterol-ipratropium (Duoneb) inhalation solution 3 mL 3 mL, Nebulizer, ONCE, On Fri01/05/25 at 2230, For 1 dose, 3 mL = 0.5 mg ipratropium/ 2.5 mg albuterol Given 01/05/2025 10:12 PM EDT 3 mL fentaNYL (PF) inj 50 mcg 50 mcg, Intravenous, ONCE, On Fri01/05/25 at 2100, For 1 dose, When given IV Push its recommended that the dose be given over 3 to 5 minutes. Given 01/05/2025 8:58 PM EDT 50 mcg fentaNYL (PF) inj 50 mcg 50 mcg, Intravenous, ONCE, On Fri01/05/25 at 2230, For 1 dose, When given IV Push its recommended that the dose be given over 3 to 5 minutes. Given 01/05/2025 9:55 PM EDT 50 mcg HYDROmorphone (Dilaudid) inj 1 mg 1 mg, Intravenous, ONCE, On Fri01/05/25 at 2345, For 1 dose Given 01/05/2025 11:17 PM EDT 1 mg Iopamidol (Isovue 370) inj 80 mL 80 mL, Intravenous, ONCE, On Fri01/05/25 at 2315, For 1 dose, Radiology Medication Routing (Non-IR) Given 01/05/2025 11:15 PM EDT 80 mL NSS 0.9% 2,300 mL bolus infusion (SEE ADMIN INSTRUCTIONS) Intravenous, at 1,200 mL/hr, Obtain vital signs q15 min x 4 beginning within the hour after fluid bolus end time, then resume vital signs as ordered. Estimated body mass index is 29.46 kg/m² as calculated from the following: Height as of 11/12/24: 1.594 m (5' 2.75"). Weight as of 12/28/24: 74.8 kg (165 lb). Actual body weight was utilized to determine target ordered volume., ONCE, 1 dose, On Fri01/05/25 at 2100 New Bag 01/05/2025 8:40 PM EDT 2,300 mL 1200 mL/hr oxygen GAS Inhalation, OXYGEN, First dose on Rica 01/06/25 at 0000, Until Discontinued, Device/Managed by: Low Flow Device, Goal SPO2 (%): 91-95, Starting Device: Nasal Cannula, Initial Flow Rate (LPM): 2, Lowest Support: Nasal Cannula: Flow 0-6 LPM. Titrate up/down by 1 LPM., Titration Interval: Q2 minutes and as needed., Notify Provider: For sudden DECREASE in resting SPO2 to less than 85% and when escalating delivery device., Wean patient off Oxygen when the oxygen saturation is greater than or equal to 93% Oxygen On 01/05/2025 11:18 PM EDT Piperacillin-Tazobactam (Zosyn) 4.5 g in 100 mL NSS ivpb (HALF hour infusion) 4.5 g, IV Piggyback, ONCE, On Fri01/05/25 at 2100, For 1 dose New Bag 01/05/2025 9:15 PM EDT 4.5 g 210 mL/hr Vancomycin (Vancocin) 1,750 mg in NSS 500 mL ivpb 1,750 mg, IV Piggyback, ONCE, 1 dose, On Fri01/05/25 at 2100 New Bag 01/05/2025 10:13 PM EDT 1,750 mg 263.75 mL/hr documented in this encounter Active and Recently Administered Medications Times are shown in EDT. Scheduled Medication Order 01/04/2025 01/05/2025 01/06/2025 Acetaminophen (Ofirmev) inj 1,000 mg (COMPLETED) 1,000 mg, Intravenous, ONCE, 1 dose, On Fri01/05/25 at 2100, Administer over 15 Minutes, Administer undiluted over 15 minutes! NOTE: Maximum of 4000 mg per 24 hours of acetaminophen from all acetaminophen containing products., Indication: Patient is experiencing severe nausea and vomiting 2102 (New Bag - Provider: Bri Holcomb, CAREY)2117 (Stopped - Provider: Bri Holcomb RN) albuterol-ipratropium (Duoneb) inhalation solution 3 mL (COMPLETED) 3 mL, Nebulizer, ONCE, On Fri01/05/25 at 2100, For 1 dose, 3 mL = 0.5 mg ipratropium/ 2.5 mg albuterol 2045 (Given - Provider: Seferino Blood RRT) albuterol-ipratropium (Duoneb) inhalation solution 3 mL (COMPLETED) 3 mL, Nebulizer, ONCE, On Fri01/05/25 at 2230, For 1 dose, 3 mL = 0.5 mg ipratropium/ 2.5 mg albuterol 2211 (Given - Provider: Seferino Blood DEMENTIA PROGRAM DIRECTOR) fentaNYL (PF) inj 50 mcg (COMPLETED) 50 mcg, Intravenous, ONCE, On Fri01/05/25 at 2100, For 1 dose, When given IV Push its recommended that the dose be given over 3 to 5 minutes. 2057 (Given - Provider: Bri Holcomb RN) fentaNYL (PF) inj 50 mcg (COMPLETED) 50 mcg, Intravenous, ONCE, On Fri01/05/25 at 2230, For 1 dose, When given IV Push its recommended that the dose be given over 3 to 5 minutes. 2154 (Given - Provider: Jose Woodard RN) HYDROmorphone (Dilaudid) inj 1 mg (COMPLETED) 1 mg, Intravenous, ONCE, On Fri01/05/25 at 2345, For 1 dose 2316 (Given - Provider: Bri Holcomb RN) Iopamidol (Isovue 370) inj 80 mL (COMPLETED) 80 mL, Intravenous, ONCE, On Fri01/05/25 at 2315, For 1 dose, Radiology Medication Routing (Non-IR) 2314 (Given - Provider: Serene Torres, RT) NSS 0.9% 2,300 mL bolus infusion (SEE ADMIN INSTRUCTIONS) (COMPLETED) Intravenous, at 1,200 mL/hr, Obtain vital signs q15 min x 4 beginning within the hour after fluid bolus end time, then resume vital signs as ordered. Estimated body mass index is 29.46 kg/m² as calculated from the following: Height as of 11/12/24: 1.594 m (5' 2.75"). Weight as of 12/28/24: 74.8 kg (165 lb). Actual body weight was utilized to determine target ordered volume., ONCE, 1 dose, On Fri01/05/25 at 2099 2039 (New Bag - Provider: Bri Holcomb, CAREY)223 (Stopped - Provider: Bri Holcomb, RN) oxygen GAS Inhalation, OXYGEN, First dose on [place] 01/06/25 at 0000, Until Discontinued, Device/Managed by: Low Flow Device, Goal SPO2 (%): 91-95, Starting Device: Nasal Cannula, Initial Flow Rate (LPM): 2, Lowest Support: Nasal Cannula: Flow 0-6 LPM. Titrate up/down by 1 LPM., Titration Interval: Q2 minutes and as needed., Notify Provider: For sudden DECREASE in resting SPO2 to less than 85% and when escalating delivery device., Wean patient off Oxygen when the oxygen saturation is greater than or equal to 93% 2317 (Oxygen On - Provider: Bri Holcomb RN) Piperacillin-Tazobactam (Zosyn) 4.5 g in 100 mL NSS ivpb (HALF hour infusion) (COMPLETED) 4.5 g, IV Piggyback, ONCE, On Fri01/05/25 at 2100, For 1 dose 2114 (New Bag - Provider: Bri Holcomb RN)2144 (Stopped - Provider: Bri Holcomb, CAREY) Vancomycin (Vancocin) 1,750 mg in NSS 500 mL ivpb (COMPLETED) 1,750 mg, IV Piggyback, ONCE, 1 dose, On Fri01/05/25 at 2100 2213 (New Bag - Provider: Jose Woodard RN) 0047 (Stopped - Provider: Bri Holcomb, CAREY) documented in this encounter Additional Health Concerns Infection Onset Date Last Indicated Resolved Time C. difficile 11/30/2024 11/30/2024 Respiratory Rule-Out 01/05/2025 01/05/2025 025 9:28 PM EDT COVID-19 Rule-Out 01/05/2025 01/05/2025 01/05/2025 9:28 PM EDT documented as of this encounter Advance Directives * Full Code (Latest Code Status on File) Date Activated Date Inactivated Comments 01/06/2025 5:26 AM This order ref lects the patients wishes and were consensually agreed upon. Question Answer Comments Discussion of Advance Directives occurred with: Patient Care Teams Business Objects Report Developer Relationship Specialty Start Date End Date Jay Gonzales MD [address] [place] [phone] PCP - General Family Medicine 09/13/22 documented as of this encounter
--- OUTSIDE RECORDS SUMMARY | 2025-02-12 16:13 | External Medical Summary ---
Author Name Unknown Address Unknown Organization K01:[facility] [place] [address] [place] [address] Laboratory Report Ordering Provider Test Date Status JAMILA ARENAS 01/07/2025 08:48:00 Final Warfarin Therapy
INR: 2 .0-3.0 conventional anticoagulation
INR: 2.5- 3.5 high intensity anticoagulation Observation Date Value Abnormality Reference (Units ) Status PT 01/07/2025 08:48:00 18.4 Above high normal 11 .6-15.2 (seconds) Final INR 01/07/2025 08:48:00 1.5 Above high normal 0. 8-1.2 Final Performing Location [facility] [place] [address] [place] [id number]
--- OUTSIDE RECORDS SUMMARY | 2025-02-12 16:13 | External Medical Summary ---
Author Name Unknown Address Unknown Organization K01:[facility] [place] [facility] [address] [facility] [address] [facility] [address] Laboratory Report Ordering Provider Test Date Status HO AMBROSIO 01/10/2025 06:02:00 Final Observation Date Value Abnormality Reference (Units ) Status WBC, Total 01/10/2025 06:02:00 4.79 4.00-10.80 (K/uL) Final RBC 01/10/2025 06:02:00 3.44 3.85-5.15 (M/uL) Final Hemoglobin 01/10/2025 06:02:00 10.4 Below low normal 12.0-15.3 (g/dL) Final HCT 01/10/2025 06:02:00 32.0 Below low normal 36.0-45.2 (%) Final MCV 01/10/2025 06:02:00 93.0 81.5-97.5 (fL) Final MCH 01/10/2025 06:02:00 30.2 27.0-34.0 (pg) Final MCHC 01/10/2025 06:02:00 32.5 32.0-36.0 (g/dL) Final RDW 01/10/2025 06:02:00 16.2 11.5-15.5 (%) Final Platelets 01/10/2025 06:02:00 79 Below low normal 140-400 (K/uL) Final MPV 01/10/2025 06:02:00 12.9 6.6-11.1 (fL) Final Nucleated erythrocytes/100 leukocytes [Ratio] in Blood by Automated count 01/10/2025 06:02:00 0 <=0 (/100 WBCs) Final Performing Location [facility] [place] [address] [place] [address]
--- OUTSIDE RECORDS SUMMARY | 2025-02-12 16:14 | External Medical Summary ---
Author Name Unknown Address Unknown Organization K1G:LABORATORY [facility] - [address] [place] [phone] Laboratory Report Ordering Provider Test Date Status YAA MENDEZ 01/05/2025 20:26:44 Final Observation Date Value Abnormality Reference (Units ) Status Troponin T 01/05/2025 20:26:44 6 <=14 (ng/ L) Final Performing Location LABORATORY [facility] - [address] [place] [phone]
--- OUTSIDE RECORDS SUMMARY | 2025-02-12 16:14 | External Medical Summary ---
Author Name Unknown Address Unknown Organization K1G:LABORATORY [address] [address] Laboratory Report Ordering Provider Test Date Status YAA MENDEZ 01/05/2025 20:47:00 Final Observation Date Value Abnormality Reference (Units ) Status Bacteria identified in Specimen by Culture 01/05/2025 20:47:00 No growth Final Test: Culture, Blood
Sp ecimen Source: Blood, Venous
Specimen Type: Blood
Specimen Date: 01/05/20252046
Result Date: 01/10/20252100
Result Status: Final result
Resulting Lab: LABORATORY [facility]
[address] [place] [address]
[facility] [phone]

CULTURE

No growth

null Performing Location LABORATORY [facility] - [address] [place] [phone]
--- OUTSIDE RECORDS SUMMARY | 2025-02-12 16:14 | External Medical Summary ---
Author Name Unknown Address Unknown Organization K1G:LABORATORY [facility] - [address] [place] [phone] Laboratory Report Ordering Provider Test Date Status YAA MENDEZ 01/05/2025 20:26:44 Final Observation Date Value Abnormality Reference (Units ) Status Lactic Acid, Whole Blood 01/05/2025 20:26:44 1.5 0.4-2.0 (mmol/L) Final Performing Location LABORATORY [facility] - [address] [place] [phone]
--- OUTSIDE RECORDS SUMMARY | 2025-02-12 16:14 | External Medical Summary ---
Author Name Unknown Address Unknown Organization K01:[facility]ATORY [facility] - [address] [place] [address] Laboratory Report Ordering Provider Test Date Status LAKSHMI LARSON 01/06/2025 05:59:00 Final Observation Date Value Abnormality Reference (Units ) Status Magnesium 01/06/2025 05:59:00 1.9 1.5-2.6 (m g/dL) Final Performing Location LABORATORY [facility] - [address] [place] [address]
--- OUTSIDE RECORDS SUMMARY | 2025-02-12 16:14 | External Medical Summary | Summary of Care ---
Author Name Unknown Organization [facility] Address [address] [place] [address] Phone [phone] Care Team Providers Care Merchandise Presentation Associate Name Role Phone Jay Gonzales MD Primary Care Provi syl Reason for Referral * Precert (Within 10 days (routine)) - Authorized Specialty Diagnoses / Procedures Referred By Vaibhav roldan Referred To Contact Radiology Diagnoses Hepatocellular carcinoma (HCC) Abnormal x-ray Procedures CT CHEST WO CONTRAST Casie Liang MD [address] [place] [address] Phone: tel: fax: Referral ID Status Reason Start Date Expiration Date V isits Requested Visits Authorized [id number] Authorized 01/01/2025 999 999 Reason for Visit * Reason Onset Date Comments Test Results 01/01/2025 Encounter Details Date Type Department Care Team ([facility] st Contact Info) Description 01/01/2025 Telephone Family Practice [address] [phone] Casie Liang MD [address] [place] [phone] Test Results Allergies No known active allergiesdocumented as of this encounter (statuses as of 01/03/2025) Medications Multiple Vitamins-Minera ls (CENTRUM ADULTS) TABS [...] NOT CUT, CRUSH OR CHEW (TAKE WITH [id number] DAILY) 90 Capsule 1 11/15/2024 Active Gabapentin [...] as of this encounter (statuses as of 01/03/2025) Active Problems Problem Noted Date Diagnosed Date [...] as of this encounter (statuses as of 01/03/2025) Resolved Problems Problem Noted Date Diagnosed Date Resolved Date OTHER 11/15/2009 08/20/2018 Overview (11/20/2009): Genotype 1a Chronic hepatitis C 09/21/2009 08/20/20 18 documented as of this encounter (statuses as of 01/03/2025) Immunizations Name Administration Dates Next Due TDAP, [...] encounter Miscellaneous Notes * Telephone Encounter - Eleonora Ramirez LPN - 01/03/2025 10:12 AM EDT myG sent to pt making aware of message below. * Telephone Encounter - Casie Liang MD - 01/01/2025 9:43 AM EDT Recent shoulder Xray abnormal. "There is a questionable right lung opacity measuring 3.[address]" CT chest order placed. Please schedule. documented in this encounter Plan of Treatment Upcoming Encounters Date Type Department Care Team (Late st Contact Info) Description 01/04/2025 11:40 AM EDT Telemedicine Infectious Disease, [address] [phone] Margie Calles MD [address] [place] [address] 01/14/2025 8:30 AM EDT Appointment Interventional [place]iology [facility] [place] [address] [place] [address] 01/17/2025 2:30 PM EDT Telemedicine Orthopaedics, [address] [id number] [place] [address] Sg Storm PA-C [address] [place] [address] 02/10/2025 1:00 PM EDT Office Visit Hematology/Oncology [facility] [place] [facility] [place] [address] Tunde Plunkett MD [address] [facility] [place] [address] 02/25/2025 11:00 AM EDT Office Visit [address] [phone] Jay Gonzales MD [address] [facility] [place] [phone] Scheduled Orders Name Type Priority Associated Diagnoses Orde r Schedule CT CHEST WO CONTRAST Medical Imaging Routine Hepatocellular carcinoma (HCC) Abnormal x-ray Ordered: 01/01/2025 Scheduled Procedures Name Priority Associated Diagnoses Date/Ti [...] 2024 *BASELINE EKG FOR HTN 12/30/2024 GFR 11/30/2025 11/30/2024, 12/2 12/2023, 08/23/2024, Additional history exists Diabetes Screening 11/30/2027 11/30/2024, 1 12/12/2023, 08/23/2024, Additional history exists Lipid Panel 08/23/2029 08/23/2024, 08/3 , 08/11/2020, Additional history exists DTap/Tdap Vaccines (3 [...] (HCC)- Primary Malignant neoplasm of liver, primary Abnormal x-ray Other nonspecific (abnormal) findings on radiological and other examinations of body structure documented in this encounter Additional Health Concerns Infection Onset Date Last Indicated Resolved Time C. difficile 11/30/2024 11/30/2024 documented as of this encounter Care Teams Merchandise Presentation Associate Relationship Specialty Start Date End Date Jay Gonzales MD [address] [place] [phone] PCP - General Family Medicine 09/13/22 documented as of this encounter
--- OUTSIDE RECORDS SUMMARY | 2025-02-12 16:14 | External Medical Summary ---
Author Name Unknown Address Unknown Organization K1G:LABORATORY [facility] - [address] [facility] [address] Laboratory Report Ordering Provider Test Date Status YAA MENDEZ 01/05/2025 20:26:44 Final Observation Date Value Abnormality Reference (Units ) Status SYNC LEUKOCYTES IN BLOOD BY AUTOMATED COUNT 01/05/2025 20:26:44 6.05 4.00-10.80 (K/uL) Final Segs 01/05/2025 20:26:44 77.0 Above high normal 40.0-75.0 (%) Final Lymphs % 01/05/2025 20:26:44 9.8 Below low normal 18.0-42.0 (%) Final Monos 01/05/2025 20:26:44 11.2 Above high normal 1.0-11.0 (%) Final Eosinophils 01/05/2025 20:26:44 1.7 0.0-6.0 (%) Final Basos 01/05/2025 20:26:44 0.3 0.0-2.0 (%) Final Absolute Segs 01/05/2025 20:26:44 4.66 1.80-7.70 (K/uL) Final Lymphs, absolute 01/05/2025 20:26:44 0.59 Below low normal 1.00-4.80 (K/ul) Final Monos, Abs 01/05/2025 20:26:44 0.68 0.00-1.10 (K/uL) Final Eos, Abs 01/05/2025 20:26:44 0.10 0.00-0.70 (K/uL) Final Basos, Abs 01/05/2025 20:26:44 0.02 0.00-0.20 (K/uL) Final Performing Location LABORATORY [facility] - [address] [facility] [address]
--- OUTSIDE RECORDS SUMMARY | 2025-02-12 16:14 | External Medical Summary | Summary of Care ---
Author Name Unknown Organization [facility] Address [address] [place] [address] Phone [phone] Care Team Providers Care Therapy Site Coordinator Name Role Phone Jay Gonzales MD Primary Care Provi syl Reason for Visit * Reason Comments Infection * Evaluate & Treat - Unlimited Visits (Within 10 days (routine)) - Authorized Specialty Diagnoses / Procedures Referred By Contwillie t Referred To Contact Infectious Diseases / Infectious Disease Diagnoses Clostridium difficile enteritis Casie Liang MD [address] [place] [address] Phone: tel: fax: Referral ID Status Reason Start Date Expiration Date Visits Requested Visits Authorized [id number] Authorized Specialty Services Required 12/30/2024 999 999 Encounter Details Date Type Department Care Team (Late st Contact Info) Description 01/04/2025 11:40 AM EDT Telemedicine Infectious Disease, [address] [phone] Margie Calles MD [address] [place] [address] C. difficile diarrhea* Allergies No known active allergiesdocumented as of this encounter (statuses as of 01/04/2025) Medications Multiple Vitamins-Minera ls (CENTRUM ADULTS) TABS [...] NOT CUT, CRUSH OR CHEW (TAKE WITH [id number] DAILY) 90 Capsule 1 11/15/2024 Active Gabapentin [...] as of this encounter (statuses as of 01/04/2025) Active Problems Problem Noted Date Diagnosed Date [...] as of this encounter (statuses as of 01/04/2025) Resolved Problems Problem Noted Date Diagnosed Date Resolved Date OTHER 11/15/2009 08/20/2018 Overview (11/20/2009): Genotype 1a Chronic hepatitis C 09/21/2009 08/20/20 18 documented as of this encounter (statuses as of 01/04/2025) Immunizations Name Administration Dates Next Due TDAP, [...] as of this encounter Progress Notes * Margie Calles MD - 01/04/2025 12:02 PM EDT Images from the original note were not included. INFECTIOUS DISEASE, [facility]: Patient location: HOME. I was in a hospital or clinic location. After connecting through [employer],patient was verified with two unique identifiers. Patient (or authorized legal consumer sales representative) was then informed that this was a Telemedicine visit and being conducted confidentially over secure lines. Methods to assure confidentiality were taken. Patient acknowledged consent and understanding of pr ivacy and security of the Telemedicine visit. The patient agreed to participate. Neha Marks is a 64 year old female. No chief complaint on file. HPI: 64 y/o F PMHx HCC, liver cirrhosis, GINA,portal HTN,MDD,HTN who developed diarrhea in July 2024 approximately 8 watery stools a day .Patient did not immediately seek medical attention believing it was related to her liver cirrhosis but was dissuaded of this by her hepatology team.Her PCP tested her for C Diff and she tested positive and was treated with 10 days of oral vancomycin which didnot make a difference in her symptoms .She was then placed on oral vancomycin taper on 12/01/24 which she took for 5 weeks but continued to have 7-8 loose stools a day .An askadoc was placed and she was switched to Fidaxomicin but did not start the medication because of availability until 01/03/25 and she has already noted improvement with 3 watery stools on 01/03/25 and 1 watery stool today (01/04/25) Daughter is concerned because her ongoing diarrhea has put her testing and treatment of HCC on hold Patient Active Problem List Diagnosis Generalized anxiety disorder Menopause Other cirrhosis of liver (HCC) Mood disorder (HCC) Portal hypertension (HCC) Thrombocytopenia (HCC) Wears dentures Major depressive disorder with single episode HTN, goal below 130/80 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 6.7 g 3 Fidaxomicin 200 MG Oral Tablet (Dificid) Take 1 Tablet by mouth in the morning and 1 Tablet before bedtime. 20 Tablet 0 No current facility-administered medications for this visit. Past Medical History: Diagnosis Date Benign neoplasm [...] performed by Leandro Torres MD at ENDOSCOPY [facility] EGD, FLEXIBLE, DIAGNOSTIC 05/06/2019 normal bx/ESOPHAGOGASTRODUODENOSCOPY (EGD), FLEXIBLE, TRANSORAL, DIAGNOSTIC performed by Leandro Torres MD at ENDOSCOPY [facility] EGD, FLEXIBLE, DIAGNOSTIC 06/20/2022 Portal hypertensive gastropathy, eso varices / ESOPHAGOGASTRODUODENOSCOPY (EGD), FLEXIBLE, TRANSORAL, DIAGNOSTIC performed by Leandro Torres MD at ENDOSCOPY [facility] LASIK SURGERY THUMB FX/DISLOC (MELÉNDEZ), REPAIR 2000 rt Review of patient's allergies indicates: No Known Allergies Family History Problem Relation Name Age of Onset No Past Hx Mother Gastro-intestinal disorder Father of cirrhosis in fifties, etoh Lung Disorder Sister copd Family Status Relation Status Mo (Not Specified) Fa (Not Specified) Sis (Not Specified) Sis (Not Specified) Social History Socioeconomic History Marital status: Spouse [...] Housing Stability: Not on file Review of Systems: Constitutional ROS: No change in weight and No fevers, sweats, or chills Gastrointestinal ROS: No hematemesis, No blood in stools or black tarry stools, No dysphagia, and Positive for change in bowel habits , cirrhosis , diarrhea , loose stool , loss of appetite , and nausea Rest of ROS negative PHYSICAL EXAM: There were no vitals taken for this visit. General: alert, no distress, comfortable, and cooperative Head: Normocephalic Eye Exam: PERRLA Lungs: normal respiratory rate and rhythm Neuro Exam: alert & oriented x 3 with fluent speech LABS: Labs reviewed as indicated below:I have reviewed her labs and my personal interpretation is no leukocytosis MICROBIOLOGY DATA: I have reviewed her cultures and my personal interpretation IMAGING: I have reviewed her imaging and my personal interpretation is no acute cholecystitis IMPRESSION Infiltrative appearing observation suspicious for hepatocellular carcinoma centered in segment 7 measures 85 x 50 mm transversely, LR 5. Left hepatic lobe 12 x 18 mm arterial hyperenhancing observation, LR 3. These correspond to the findings on prior ultrasound 09/06/2024. Cirrhosis of the liver with portal hypertension. Splenomegaly. Trace ascites. Enlarged nonspecific portacaval lymph node. 18 mm gallstone in the gallbladder neck without findings to suggest acute cholecystitis at this time. ASSESSMENT:Patient who developed diarrhea in July 2024 and was diagnosed with C Diff in November2024 and was started on 10 days of oral vancomycin and when her symptoms did not resolve she was treated with oral vancomycin taper which she took for 5 weeks without symptom improvement and so she was switched to fidaxomicin which she only started yesterday but has already seen improvement which 3watery stools yesterday and one watery stool today .I have encouraged her to continue to fidaxomicin until 01/13/25 and to schedule her radiology appointment JERO as her symptoms are improving No diagnosis found. PLAN: Continue present medication(s): Patient education: Avoid antibiotics unless necessary Continue Fidaxomicin Follow up in 3 month(s). Margie Calles MD Infectious Disease, [address] [address] documented in this encounter Plan of Treatment Upcoming Encounters Date Type Department Care Team (Late st Contact Info) Description 01/05/2025 1:00 PM EDT Appointment Radiology, [facility] [address] [place] [address] 01/14/2025 8:30 AM EDT Appointment Interventional Radiology [facility] [place], [address] [place] [address] 01/17/2025 2:30 PM EDT Telemedicine Orthopaedics, [address] [address] Sg Storm PA-C [address] [place] [address] 02/10/2025 1:00 PM EDT Office Visit Hematology/Oncology [facility] [place] 200 [facility] [place] [phone] Tunde Plunkett MD [address] [facility] [place] [address] 02/25/2025 11:00 AM EDT Office Visit [address] [phone] Jay Gonzales MD [address] [place] [address] Scheduled Procedures Name Priority Associated Diagnoses Date/Ti me COLONOSCOPY FLEXIBLE PROXIMA L DIAGNOSTIC Recall Personal history of colonic polyps Scheduled Referrals Name Type Priority Associated Diagnoses Orde r Schedule INFECTIOUS DISEASE REFERRAL OP Referral Within 10 days (routine) Clostridium difficile enteritis Ordered: 12/30/2024 Health Maintenance Due Date Last [...] HTN, goal below 130/80 Unspecified essential hypertension C. difficile diarrhea- Primary Intestinal infection due to clostridium difficile documented in this encounter Additional Health Concerns Infection Onset Date Last Indicated Resolved Time C. difficile 11/30/2024 11/30/2024 documented as of this encounter Care Teams Therapy Site Coordinator Relationship Specialty Start Date End Date Jay Gonzales MD [address] [place] [phone] PCP - General Family Medicine 09/13/22 documented as of this encounter
--- OUTSIDE RECORDS SUMMARY | 2025-02-12 16:14 | External Medical Summary ---
Author Name Unknown Address Unknown Organization K1G:LABORATORY [facility] - [address] [place] [phone] Laboratory Report Ordering Provider Test Date Status YAA MENDEZ 01/05/2025 20:26:44 Final Anticoagulation may affect t esting. Refer to [employer] Test Catalog for a list of effects. Observation Date Value Abnormality Reference (Units ) Status aPTT panel - Platelet poor plasma 01/05/2025 20:26:44 34 21-38 (seconds) Final Performing Location LABORATORY [facility] - [address] [place] [phone]
--- OUTSIDE RECORDS SUMMARY | 2025-02-12 16:14 | External Medical Summary ---
Author Name Unknown Address Unknown Organization K01:[place] [facility] [place] [facility] [address] Laboratory Report Ordering Provider Test Date Status LAKSHMI LARSON 01/06/2025 05:59:00 Final Observation Date Value Abnormality Reference (Units ) Status WBC, Total 01/06/2025 05:59:00 6.40 4.00-10.80 (K/uL) Final RBC 01/06/2025 05:59:00 3.65 3.85-5.15 (M/uL) Final Hemoglobin 01/06/2025 05:59:00 10.6 Below low normal 12.0-15.3 (g/dL) Final HCT 01/06/2025 05:59:00 34.3 Below low normal 36.0-45.2 (%) Final MCV 01/06/2025 05:59:00 94.0 81.5-97.5 (fL) Final MCH 01/06/2025 05:59:00 29.0 27.0-34.0 (pg) Final MCHC 01/06/2025 05:59:00 30.9 32.0-36.0 (g/dL) Final RDW 01/06/2025 05:59:00 16.0 11.5-15.5 (%) Final Platelets 01/06/2025 05:59:00 70 Below low normal 140-400 (K/uL) Final MPV 01/06/2025 05:59:00 12.7 6.6-11.1 (fL) Final Nucleated erythrocytes/100 leukocytes [Ratio] in Blood by Automated count 01/06/2025 05:59:00 0 <=0 (/100 WBCs) Final Performing Location [place] [facility] [place] [address] [facility] [place] [address]
--- OUTSIDE RECORDS SUMMARY | 2025-02-12 16:14 | External Medical Summary ---
Author Name Unknown Address Unknown Organization K01:LABORATORY [facility] - [address] [place] [address] Laboratory Report Ordering Provider Test Date Status LAKSHMI LARSON 01/06/2025 05:59:00 Final Observation Date Value Abnormality Reference (Units ) Status Phosphate 01/06/2025 05:59:00 2.9 2.5-4.8 (m g/dL) Final Performing Location LAB[facility]ATORY [facility] - [address] [place] [address]
--- OUTSIDE RECORDS SUMMARY | 2025-02-12 16:14 | External Medical Summary ---
Author Name Unknown Address Unknown Organization K1G:LABORATORY [facility] - [address] [facility] [address] Laboratory Report Ordering Provider Test Date Status YAA MENDEZ 01/05/2025 20:26:44 Final Observation Date Value Abnormality Reference (Units ) Status BUN 01/05/2025 20:26:44 8 6-20 (mg/dL) Final Creatinine 01/05/2025 20:26:44 0.7 0.5-1.0 (mg/dL) Final Glomerular filtration rate/1.73 sq M.predicted [Volume Rate/Area] in Serum, Plasma or Blood by Creatinine-based formula (CKD-EPI) 01/05/2025 20:26:44 >90 >=60 (mL/min) Final eGFR is calculated based on the CKD-EPI 2020 equation. Sodium 01/05/2025 20:26:44 137 135-146 (m mol/L) Final Potassium 01/05/2025 20:26:44 3.4 Below low normal 3.5 -5.1 (mmol/L) Final Cl 01/05/2025 20:26:44 99 98-107 (mm ol/L) Final CO2 01/05/2025 20:26:44 27 22-32 (mmo l/L) Final Anion gap 01/05/2025 20:26:44 11 7-15 (mmol /L) Final Glucose 01/05/2025 20:26:44 159 Above high normal 70 -120 (mg/dL) Final Albumin 01/05/2025 20:26:44 4.1 3.8-5.0 (g /dL) Final AST (Aspartate aminotransferase) 01/05/2025 20:26:44 135 Above high normal 10-35 (U/L) Final Alk Phos 01/05/2025 20:26:44 620 Above high normal 35 -130 (U/L) Final Bilirubin, Total 01/05/2025 20:26:44 1.0 <=1 .2 (mg/dL) Final Calcium 01/05/2025 20:26:44 9.3 8.4-10.2 ( mg/dL) Final Protein 01/05/2025 20:26:44 7.4 6.0-8.3 (g /dL) Final ALT (Alanine aminotransferase) 01/05/2025 20:26:44 42 Above high normal 10-35 (U/L) Final Performing Location LABORATORY [address] [address]
--- OUTSIDE RECORDS SUMMARY | 2025-02-12 16:14 | External Medical Summary ---
Author Name Unknown Address Unknown Organization K01:[place] [facility] [place] [address] [place] [address] Laboratory Report Ordering Provider Test Date Status LAKSHMI LARSON 01/06/2025 05:59:00 Final Observation Date Value Abnormality Reference (Units ) Status BUN 01/06/2025 05:59:00 8 6-20 (mg/dL) Final Creatinine 01/06/2025 05:59:00 0.5 0.5-1.0 (mg/dL) Final Glomerular filtration rate/1.73 sq M.predicted [Volume Rate/Area] in Serum, Plasma or Blood by Creatinine-based formula (CKD-EPI) 01/06/2025 05:59:00 >90 >=60 (mL/min) Final eGFR is calculated based on the CKD-EPI 2020 equation. Sodium 01/06/2025 05:59:00 141 135-146 (m mol/L) Final Potassium 01/06/2025 05:59:00 3.4 Below low normal 3.5 -5.1 (mmol/L) Final Cl 01/06/2025 05:59:00 106 98-107 (mm ol/L) Final CO2 01/06/2025 05:59:00 23 22-32 (mmo l/L) Final Anion gap 01/06/2025 05:59:00 12 7-15 (mmol /L) Final Glucose 01/06/2025 05:59:00 150 Above high normal 70 -120 (mg/dL) Final Albumin 01/06/2025 05:59:00 3.7 Below low normal 3.8 -5.0 (g/dL) Final AST (Aspartate aminotransferase) 01/06/2025 05:59:00 127 Above high normal 10-35 (U/L) Final Alk Phos 01/06/2025 05:59:00 577 Above high normal 35 -130 (U/L) Final Bilirubin, Total 01/06/2025 05:59:00 1.2 <=1 .2 (mg/dL) Final Calcium 01/06/2025 05:59:00 8.7 8.4-10.2 ( mg/dL) Final Protein 01/06/2025 05:59:00 6.7 6.0-8.3 (g /dL) Final ALT (Alanine aminotransferase) 01/06/2025 05:59:00 44 Above high normal 10-35 (U/L) Final Performing Location [place] [facility] [place] [address] [place] [facility] [address]
--- OUTSIDE RECORDS SUMMARY | 2025-02-12 16:14 | External Medical Summary ---
Author Name Unknown Address Unknown Organization K01:[facility] [address] [place] [address] Laboratory Report Ordering Provider Test Date Status LAKSHMI LARSON 01/06/2025 05:59:00 Final Observation Date Value Abnormality Reference (Units ) Status LDH 01/06/2025 05:59:00 266 Above high normal <= 250 (U/L) Final Performing Location [facility] - [address] Joseluis [place] [address]
--- OUTSIDE RECORDS SUMMARY | 2025-02-12 16:14 | External Medical Summary ---
Author Name Unknown Address Unknown Organization K01:LAB[facility]ATORY [facility] [place] [address] [facility] [address] [facility] [address] Laboratory Report Ordering Provider Test Date Status LAKSHMI LARSON 01/05/2025 20:26:44 Final Observation Date Value Abnormality Reference (Units ) Status Alpha-Fetoprotein 01/05/2025 20:26:44 19018.0 Above high normal 0.0-8.3 (ng/mL) Final Performing Location LABORATORY C - [address] [facility] [address]
--- OUTSIDE RECORDS SUMMARY | 2025-02-12 16:14 | External Medical Summary ---
Author Name Unknown Address Unknown Organization K1G:LABORATORY [facility] - [address] [facility] [address] Laboratory Report Ordering Provider Test Date Status YAA MENDEZ 01/06/2025 00:56:14 Final Observation Date Value Abnormality Reference (Units ) Status Color of Urine by Auto 01/06/2025 00:56:14 Yellow Light Yellow, Yellow, Dark Yellow Final Clarity, Urine 01/06/2025 00:56:14 Clear Clear Final Glucose [Mass/volume] in Urine by Automated test strip 01/06/2025 00:56:14 Negative Negative (mg/dL) Final Bilirubin.total [Presence] in Urine by Automated test strip 01/06/2025 00:56:14 Negative Negative Final Ketones [Mass/volume] in Urine by Automated test strip 01/06/2025 00:56:14 Negative Negative (mg/dL) Final Specific gravity, Urine 01/06/2025 00:56:14 1.015 1.003-1.030 Final Hemoglobin [Presence] in Urine by Automated test strip 01/06/2025 00:56:14 Trace Abnormal Negative Final pH, Urine 01/06/2025 00:56:14 6.0 5.0-7.5 (Units) Final Protein [Mass/volume] in Urine by Automated test strip 01/06/2025 00:56:14 Negative Negative (mg/dL) Final Urobilinogen [Mass/volume] in Urine by Automated test strip 01/06/2025 00:56:14 0.2 0.2, 1.0 (mg/dL) Final Nitrite [Presence] in Urine by Automated test strip 01/06/2025 00:56:14 Negative Negative Final Leukocyte esterase [Presence] in Urine by Automated test strip 01/06/2025 00:56:14 Negative Negative Final RBC, Urine 01/06/2025 00:56:14 3-5 Abnormal 0-2 (/HPF) Final WBC, Urine 01/06/2025 00:56:14 0-2 0-2 (/HPF) Final Bacteria [#/area] in Urine sediment by Microscopy high power field 01/06/2025 00:56:14 0-25 0-25 (/HPF) Final CULTURE, URINE - [facility] 01/06/2025 00:56:14 Final Culture not indicated by uri nalysis results\X09\ Performing Location LABORATORY [address] [address]
--- OUTSIDE RECORDS SUMMARY | 2025-02-12 16:14 | External Medical Summary ---
Author Name Unknown Address Unknown Organization K01:LABORATORY [facility] [place] - [address] [facility] [address] Laboratory Report Ordering Provider Test Date Status LAKSHMI LARSON 01/06/2025 05:59:00 Final Observation Date Value Abnormality Reference (Units ) Status Uric Acid 01/06/2025 05:59:00 2.5 2.4-5.7 (m g/dL) Final Performing Location [facility] [address] [facility] [address]
--- OUTSIDE RECORDS SUMMARY | 2025-02-12 16:14 | External Medical Summary ---
Author Name Unknown Address Unknown Organization K01:LAB[facility]ATORY [facility] [place] - [address] [facility] [address] Laboratory Report Ordering Provider Test Date Status LAKSHMI LARSON 01/06/2025 05:59:00 Final Less than 0.5 ng/mL: Low ris k for progression to sepsis. Review patients condition for localized infections.

0.5 to 2.0 ng/mL: Intermediate risk for progresion to sepsis. Review underlying conditions. Recommend repeat PCT after 6 hours has elapsed.

Greater than 2.0 ng/mL: high risk for progression to sepsis unless other causes are known. Observation Date Value Abnormality Reference (Units ) Status Procalcitonin [Mass/volume] in Serum or Plasma by Immunoassay 01/06/2025 05:59:00 0.07 <0.10 (ng/mL) Final Performing Location LABORATORY [facility] [place] - [address] [facility] [address] [facility] [address]
--- OUTSIDE RECORDS SUMMARY | 2025-02-12 16:14 | External Medical Summary ---
Author Name Unknown Address Unknown Organization K1G:LABORATORY [facility] - [address] [facility] [address] Laboratory Report Ordering Provider Test Date Status YAA MENDEZ 01/05/2025 20:26:44 Final Warfarin Therapy
INR: 2 .0-3.0 conventional anticoagulation
INR: 2.5- 3.5 high intensity anticoagulation Observation Date Value Abnormality Reference (Units ) Status PT 01/05/2025 20:26:44 16.5 Above high normal 11 .6-15.2 (seconds) Final INR 01/05/2025 20:26:44 1.3 Above high normal 0. 8-1.2 Final Performing Location LABORATORY [facility] - [address] [address]
--- OUTSIDE RECORDS SUMMARY | 2025-02-12 16:14 | External Medical Summary | Summary of Care ---
Author Name Unknown Organization [facility] Address [address] [place] [address] Phone [phone] Care Team Providers Care Senior Storage Engineer Name Role Phone Jay Gonzales MD [facility] Encounter Details Date Type Department Care Team ([facility] Contact Info) Description 01/06/2025 Telephone Family [address] [phone] Casie Liang MD [address] [place] [phone] Allergies No known active allergiesdocumented as of [...] NOT CUT, CRUSH OR CHEW (TAKE WITH [id number] DAILY) 90 Capsule 1 11/15/2024 Active Gabapentin [...] encounter Miscellaneous Notes * Telephone Encounter - Casie Liang MD - 01/06/2025 8:[address] chest. Patient is currently admitted. Letter sent IMPRESSION: 1. Right posterior pleural-based mass with erosive/destructive changes of the right posterior 6th rib highly suspicious for neoplastic disease. 2. Right scapular lesion highly suspicious for bony metastasis. 3. Ground-glass 3 mm nodule left lung anteriorly nonspecific. 4. 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 documented in this encounter Plan of Treatment Upcoming Encounters Date Type Department Care Team (Late st Contact Info) Description 01/14/2025 8:30 AM EDT Appointment Interventional [place]iology [facility] [place] 1st Floor [address] [place] [address] 01/17/2025 2:30 PM EDT Telemedicine Orthopaedics, [facility] [address] [place] [phone] Sg Storm PA-C [address] [place], [place] [phone] 01/27/2025 8:30 AM EDT Appointment [place]ventional [place] [facility] 1st Floor [address] [place] [address] 01/27/2025 11:00 AM EDT Appointment Radiology, [address] [address] 01/27/2025 11:30 AM EDT Appointment Radiology, [address] [address] 02/10/2025 1:00 PM EDT Office Visit Hematology/Oncology [facility] [address] [place] [address] Tunde Plunkett MD [address] [place] [address] 02/25/2025 11:00 AM EDT Office Visit Family [facility] [address] [place] [address] Jay Gonzales MD [address] [place] [phone] Scheduled Procedures Name Priority Associated Diagnoses [...] Directives occurred with: Patient Care Teams Senior Storage Engineer Relationship Specialty Start Date End Date Jay Gonzales MD [address] [place] [phone] PCP - General Family Medicine 09/13/22 documented as of this encounter
--- OUTSIDE RECORDS SUMMARY | 2025-02-12 16:14 | External Medical Summary ---
Author Name Unknown Address Unknown Organization K1G:LABORATORY [facility] - [address] [place] [address] Laboratory Report Ordering Provider Test Date Status YAA MENDEZ 01/05/2025 20:34:20 Final Observation Date Value Abnormality Reference (Units ) Status Adenovirus DNA [Presence] in Nasopharynx by AUGUST with non-probe detection 01/05/2025 20:34:20 Negative Negative Final Human coronavirus 229E RNA [Presence] in Nasopharynx by AUGUST with non-probe detection 01/05/2025 20:34:20 Negative Negative Final Human coronavirus HKU1 RNA [Presence] in Nasopharynx by AUGUST with non-probe detection 01/05/2025 20:34:20 Negative Negative Final Human coronavirus NL63 RNA [Presence] in Nasopharynx by AUGUST with non-probe detection 01/05/2025 20:34:20 Negative Negative Final Human coronavirus OC43 RNA [Presence] in Nasopharynx by AUGUST with non-probe detection 01/05/2025 20:34:20 Negative Negative Final SARS-CoV-2 (COVID-19) RNA [Presence] in Nasopharynx by AUGUST with non-probe detection 01/05/2025 20:34:20 Negative Negative Final Human metapneumovirus RNA [Presence] in Nasopharynx by AUGUST with non-probe detection 01/05/2025 20:34:20 Negative Negative Final Rhinovirus+Enterovirus RNA [Presence] in Nasopharynx by AUGUST with non-probe detection 01/05/2025 20:34:20 Negative Negative Final Influenza virus A RNA [Presence] in Nasopharynx by AUGUST with non-probe detection 01/05/2025 20:34:20 Negative Negative Final Influenza virus B RNA [Presence] in Nasopharynx by AUGUST with non-probe detection 01/05/2025 20:34:20 Negative Negative Final Parainfluenza virus 1 RNA [Presence] in Nasopharynx by AUGUST with non-probe detection 01/05/2025 20:34:20 Negative Negative Final Parainfluenza virus 2 RNA [Presence] in Nasopharynx by AUGUST with non-probe detection 01/05/2025 20:34:20 Negative Negative Final Parainfluenza virus 3 RNA [Presence] in Nasopharynx by AUGUST with non-probe detection 01/05/2025 20:34:20 Negative Negative Final Parainfluenza virus 4 RNA [Presence] in Nasopharynx by AUGUST with non-probe detection 01/05/2025 20:34:20 Negative Negative Final Respiratory syncytial virus RNA [Presence] in Nasopharynx by AUGUST with non-probe detection 01/05/2025 20:34:20 Negative Negative Final Bordetella pertussis.pertussis toxin promoter region [Presence] in Nasopharynx by AUGUST with non-probe detection 01/05/2025 20:34:20 Negative Negative Final Chlamydophila pneumoniae DNA [Presence] in Nasopharynx by AUGUST with non-probe detection 01/05/2025 20:34:20 Negative Negative Final Mycoplasma pneumoniae DNA [Presence] in Nasopharynx by AUGUST with non-probe detection 01/05/2025 20:34:20 Negative Negative Final Bordetella parapertussis [id number] DNA [Presence] in Nasopharynx by AUGUST with non-probe detection 01/05/2025 20:34:20 Negative Negative Final The primers that detect Rhin ovirus may cross react with some Enterorviruses. The validation of bronchial specimens, tracheal aspirates, and throats for this assay was developed and performance characteristics determined by [facility]. �The validation of alternate specimen types has not been cleared or approved by the U.S. Food and Drug Administration (FDA). �It has been determined that such clearance or approval is not necessary. [facility] LABORATORY [facility] - [address] [facility] [address]
--- OUTSIDE RECORDS SUMMARY | 2025-02-12 16:14 | External Medical Summary ---
Author Name Unknown Address Unknown Organization K1G:LABORATORY [facility] - [address] [facility] [address] Laboratory Report Ordering Provider Test Date Status YAA MENDEZ 01/05/2025 20:26:44 Final Observation Date Value Abnormality Reference (Units ) Status WBC, Total 01/05/2025 20:26:44 6.05 4.00-10.8 0 (K/uL) Final RBC 01/05/2025 20:26:44 3.91 3.85-5.15 (M/uL) Final Hemoglobin 01/05/2025 20:26:44 11.4 Below low normal 12 .0-15.3 (g/dL) Final HCT 01/05/2025 20:26:44 35.5 Below low normal 36. 0-45.2 (%) Final MCV 01/05/2025 20:26:44 90.8 81.5-97.5 (fL) Final MCH 01/05/2025 20:26:44 29.2 27.0-34.0 (pg) Final MCHC 01/05/2025 20:26:44 32.1 32.0-36.0 (g/dL) Final RDW 01/05/2025 20:26:44 15.6 11.5-15.5 (%) Final Platelets 01/05/2025 20:26:44 66 Below low normal 140 -400 (K/uL) Final MPV 01/05/2025 20:26:44 12.5 6.6-11.1 ( fL) Final Performing Location [facility] [address] [facility] [address]
--- OUTSIDE RECORDS SUMMARY | 2025-02-12 16:14 | External Medical Summary ---
Author Name Unknown Address Unknown Organization K01:LABORATORY [facility] [place] - [facility] [address] [facility] [address] Laboratory Report Ordering Provider Test Date Status YAA MENDEZ 01/05/2025 20:26:44 Final Less than 0.5 ng/mL: Low ris [...] [Mass/volume] in Serum or Plasma by Immunoassay 01/05/2025 20:26:44 0.08 <0.10 (ng/mL) Final Performing Location LABORATORY [facility] [place] - [address] [facility] [address]
--- OUTSIDE RECORDS SUMMARY | 2025-02-12 16:14 | External Medical Summary ---
Author Name Unknown Address Unknown Organization K1G:LABORATORY [address] [address] Laboratory Report Ordering Provider Test Date Status YAA MENDEZ 01/05/2025 20:26:44 Final Observation Date Value Abnormality Reference (Units ) Status Bacteria identified in Specimen by Culture 01/05/2025 20:26:44 No growth Final Test: Culture, Blood (Site 2)
Specimen Source: Blood, Venous
Specimen Type: Blood
Specimen Date: 01/05/20252025
Result Date: 01/10/20252100
Result Status: Final result
Resulting Lab: LABORATORY [facility]
[address] [place] [address]
[facility] [address]

CULTURE

No growth

null Performing Location LABORATORY [facility] - [address] [place] [address]
--- OUTSIDE RECORDS SUMMARY | 2025-02-12 16:14 | External Medical Summary ---
Author Name Unknown Address Unknown Organization K01:[facility] [place] [address] [facility] [address] [facility] [address] Laboratory Report Ordering Provider Test Date Status YAA MENDEZ 01/05/2025 20:34:20 Final Observation Date Value Abnormality Reference (Units ) Status Methicillin resistant Staphylococcus aureus (MRSA) DNA [Presence] in Nose by AUGUST with probe detection 01/05/2025 20:34:20 Negative Negative Final No Methicillin resistant Sta phylococcus aureus detected by PCR (amplified probe). Performing Location [facility] [place] [address] [facility] [address]
--- OUTSIDE RECORDS SUMMARY | 2025-02-12 16:14 | External Medical Summary ---
Author Name Unknown Address Unknown Organization K1G:LABORATORY [facility] - [address] [facility] [address] Laboratory Report Ordering Provider Test Date Status YAA MENDEZ 01/05/2025 20:26:44 Final Observation Date Value Abnormality Reference (Units ) Status Body temperature 01/05/2025 20:26:44 37.0 (C) Final pH of Venous blood 01/05/2025 20:26:44 7.428 7.320-7.430 (units) Final Carbon dioxide [Partial pressure] in Venous blood 01/05/2025 20:26:44 46.2 40.0-60.0 (mmHg) Final Oxygen [Partial pressure] in Venous blood 01/05/2025 20:26:44 39.0 25.0-50.0 (mmHg) Final Base excess, Capillary 01/05/2025 20:26:44 5.3 Above high normal -2.0-2.0 (mmol/L) Final Hemoglobin [Mass/volume] in Blood by Oximetry 01/05/2025 20:26:44 12.2 12.0-15.3 (g/dL) Final Oxyhemoglobin, Venous (FO2HB) 01/05/2025 20:26:44 72.6 40.0-85.0 (% total Hgb) Final Carboxyhemoglobin 01/05/2025 20:26:44 1.5 <=1.5 (% total Hgb) Final Smokers: 0-9.0 % Methemoglobin 01/05/2025 20:26:44 0.6 <=1.5 (% total Hgb) Final Deoxyhemoglobin/Hemoglobin.t otal in Venous blood 01/05/2025 20:26:44 25.3 (% total Hgb) Marisa l Oxygen content in Venous blood 01/05/2025 20:26:44 12.5 7.0-18.0 (%vol) Final Bicarbonate, Venous, POC (i-STAT) 01/05/2025 20:26:44 30.5 23.0-31.0 (mmol/L) Fi nal Performing Location LABORATORY [facility] - [address] [place] [phone]
--- OUTSIDE RECORDS SUMMARY | 2025-02-12 16:14 | External Medical Summary ---
Author Name Unknown Address Unknown Organization K01:LABORATORY [facility] [place] [address] [place] [address] Laboratory Report Ordering Provider Test Date Status LAKSHMI LARSON 01/06/2025 05:59:00 Final Warfarin Therapy
INR: 2 .0-3.0 conventional anticoagulation
INR: 2.5- 3.5 high intensity anticoagulation Observation Date Value Abnormality Reference (Units ) Status PT 01/06/2025 05:59:00 16.9 Above high normal 11 .6-15.2 (seconds) Final INR 01/06/2025 05:59:00 1.4 Above high normal 0. 8-1.2 Final Performing Location LAB[facility]ATORY [facility] [place] [address] [place] [address]
--- OUTSIDE RECORDS SUMMARY | 2025-02-12 16:15 | External Medical Summary | Summary of Care ---
Author Name Unknown Organization [facility] Address [address] [facility] [address] Phone [phone] Care Team Providers Care Underground Heavy Equipment Operator Name Role Phone Jay Gonzales MD Primary Care Provi [facility] Encounter Details Date Type Department Care Team (Latest Contact Info) Description 12/30/2024 2:06 PM EDT - 12/30/2024 11:59 PM EDT Hospital Encounter Radiology, [facility] [address] [place] [address] Arrived Discharge Disposition: Home - Self Care Allergies No known active allergiesdocumented as of this encounter (statuses as of 12/31/2024) Medications Multiple Vitamins-Minera ls (CENTRUM ADULTS) TABS [...] NOT CUT, CRUSH OR CHEW (TAKE WITH [id number] DAILY) 90 Capsule 1 5 Active Gabapentin [...] week 3.. 90 Capsule 5 5 Active Vancomycin HCl 125 MG Oral Capsule (Vancocin)Indic ations:Clostrid ium difficile enteritis Take 1 Capsule by mouth every 6 hours. 56 Capsule 5 Active Ventolin HFA 108 (90 Base) MCG/ACT Inhalation Aerosol SolutionIndicat ions:Wheezing Inhale 2 Puffs by mouth every 4 hours as needed for Wheezing. 6.7 g 3 5 Active Fidaxomicin 200 MG Oral Tablet (Dificid)Indica tions:C. difficile diarrhea Take 1 Tablet by mouth in the morning and 1 Tablet before bedtime. Do all this for 10 days. 20 Tablet 5 01/01/20 25 Discontinu ed(Refill) documented as of this encounter (statuses as of 12/31/2024) Active Problems Problem Noted Date Diagnosed Date [...] as of this encounter (statuses as of 12/31/2024) Resolved Problems Problem Noted Date Diagnosed Date Resolved Date OTHER 11/15/2009 08/20/2018 Overview (11/20/2009): Genotype 1a Chronic hepatitis C 09/21/2009 08/20/20 18 documented as of this encounter (statuses as of 12/31/2024) Immunizations Name Administration Dates Next Due TDAP, [...] 01/04/2025 11:40 AM EDT Telemedicine Infectious Disease, [address] [address] Margie Calles MD [address] [place] [address] 01/14/2025 8:30 AM EDT Appointment Interventional Radiology [facility] 1st Floor [address] [place] [address] 01/17/2025 2:30 PM EDT Telemedicine Orthopaedics, [address] [address] Sg Storm PA-C [address] [place] [address] 02/10/2025 1:00 PM EDT Office Visit Hematology/Oncology [facility] [place] [address] [facility] [place] [phone] Tunde Plunkett MD [address] [facility] [place] [address] 02/25/2025 11:00 AM EDT Office Visit Family [facility] [address] [place] [address] Jay Gonzales MD [address] [place] [address] Scheduled Procedures Name Priority Associated [...] EKG FOR HTN 12/30/2024 GFR 11/30/2025 11/30/2024, 12/12/2023, 08/23/2024, Additional history exists Diabetes Screening 11/30/2027 [...] chest CT. A request to the Radiology Operations Dispatcher(MARYANN) was placed at 22:13 on 12/30/2024 in [...] Recommendchest CT. A request to the Radiology Operations Dispatcher(MARYANN) was placed at22:13 on 12/30/2024 in the MARYANN result communication system to notify theordering physician of the above findings. Sg Storm PA-C RADIOLOGY (RAD GENER AL) Final Result documented in this encounter Additional Health Concerns Infection Onset Date Last Indicated Resolved Time C. difficile 11/30/2024 11/30/2024 documented as of this encounter Care Teams Underground Heavy Equipment Operator Relationship Specialty Start Date End Date Jay Gonzales MD [address] [place] [phone] PCP - General Family Medicine 09/13/22 documented as of this encounter
--- OUTSIDE RECORDS SUMMARY | 2025-02-12 16:15 | External Medical Summary | Summary of Care ---
Author Name Unknown Organization [facility] Address [address] [facility] [place] [address] Phone [phone] Care Team Providers Care Traffic Chief Name Role Phone Jay Gonzales MD Primary Care Provi [facility] Reason for Referral * Evaluate & Treat - Unlimited Visits (Within 10 days (routine)) - Authorized Specialty Diagnoses / Procedures Referred By Vaibhav roldan Referred To Contact Physical Therapy / Physical Medicine And Rehab Diagnoses Adhesive capsulitis of right shoulder Sg Storm PA-C [address] [place] [address] Phone: tel: fax: Referral ID Status Reason Start Date Expiration Date Visits Requested Visits Authorized [id number] Authorized Specialty Services Required 12/30/2024 999 999 [...] JX/BURSA W/O US Sg Storm PA-C [address] [place] [address] Phone: tel: fax: Referral ID Status Reason Start Date Expiration Date V isits Requested Visits Authorized [id number] Authorized 12/30/2024 999 999 Reason for Visit [...] motion (ROM) of shoulder Casie Liang MD [address] [place] [address] Phone: tel: fax: Referral ID Status Reason Start Date Expiration Date Visits Requested Visits Authorized [id number] Authorized Specialty Services Required 12/28/2024 999 999 Encounter Details Date Type Department Care Team (Late st Contact Info) Description 12/30/2024 2:00 PM EDT [facility] [address] [place] [phone] Sg Storm PA-C [address] [place] [address] [phone] Adhesive capsulitis of right shoulder* Allergies No known active allergiesdocumented as of this encounter (statuses as of 12/30/2024) Medications Multiple Vitamins-Minera ls (CENTRUM ADULTS) TABS [...] NOT CUT, CRUSH OR CHEW (TAKE WITH 574=831PH DAILY) 90 Capsule 1 11/15/2024 Active Gabapentin [...] for Wheezing. 6.7 g 3 12/28/2024 Active Hospital, Clinic, or Other Facility Administered Medication Ordered Dose Route Frequency Start Date End Date Status lidocaine 1% 1 mL - triamcinolone acetonide 40 mg/mL 1 mL inj 2 mLIndications:Adhesive capsulitis of right shoulder 2 mL IJ ONCE 12/30/2024 12/30/2024 Ended documented as of this encounter (statuses as of 12/30/2024) Active Problems Problem Noted Date Diagnosed Date [...] as of this encounter (statuses as of 12/30/2024) Resolved Problems Problem Noted Date Diagnosed Date Resolved Date OTHER 11/15/2009 08/20/2018 Overview (11/20/2009): Genotype 1a Chronic hepatitis C 09/21/2009 08/20/20 18 documented as of this encounter (statuses as of 12/30/2024) Immunizations Name Administration Dates Next Due TDAP, [...] performed by Leandro Torres MD at [facility]OSCOPY [facility] EGD, FLEXIBLE, DIAGNOSTIC 05/06/2019 normal bx/ESOPHAGOGASTRODUODENOSCOPY (EGD), FLEXIBLE, TRANSORAL, DIAGNOSTIC performed by Leandro Torres MD at ENDOSCOPY [facility] EGD, FLEXIBLE, DIAGNOSTIC 06/20/2022 Portal hypertensive gastropathy, eso varices / ESOPHAGOGASTRODUODENOSCOPY (EGD), FLEXIBLE, TRANSORAL, DIAGNOSTIC performed by Leandro Torres MD at ENDOSCOPY [facility] LASIK SURGERY THUMB FX/DISLOC (MELÉNDEZ), [...] NOT CUT, CRUSH OR CHEW (TAKE WITH 073=575GS DAILY) 90 Capsule 1 Gabapentin 100 MG [...] Positive for hepatocellular carcinoma, beginning treatments in January FEMALE: No STDs, No dysuria, No frequency, [...] injected the patient Sg Storm PA-C Orthopaedics, [address] [address] 12/30/2024 2:52 PM documented in this encounter [...] relaxer, ice, heat documented in this encounter Plan of Treatment Upcoming Encounters Date Type Department Care Team (Late st Contact Info) Description 01/03/2025 8:30 AM EDT Hospital Encounter Interventional Radiology [facility] 1st Floor [address] [place] [address] 01/04/2025 11:40 AM EDT Telemedicine Infectious Disease, [address] [phone] Margie Calles MD [address] [place] [address] 01/14/2025 8:30 AM EDT Appointment Interventional Radiology [facility], [facility] 1st Floor [address] [place] [phone] 01/17/2025 2:30 PM EDT [facility] [address] [place] [phone] Sg Storm PA-C [address] [place] [phone] 02/10/2025 1:00 PM EDT Office Visit Hematology/Oncology [facility] [place] [address] [place] [phone] Tunde Plunkett MD [address] [place] [address] 02/25/2025 11:00 AM EDT Office Visit Family [address] [phone] Jay Gonzales MD [address] [place] [phone] Scheduled Orders Name Type Priority Associated Diagnoses [...] chest CT. A request to the Radiology [facility] Team Member(MARYANN) was placed at 22:13 on 12/30/2024 in [...] Recommendchest CT. A request to the Radiology [employer] Team Member(MARYANN) was placed at22:13 on 12/30/2024 in the [...] right shoulder- Primary Adhesive capsulitis of shoulder documented in this encounter Administered Medications Inactive [...] documented as of this encounter Care Teams Traffic Chief Relationship Specialty Start Date End Date Jay Gonzales MD [address] [place] [phone] PCP - General Family Medicine 09/13/22 documented as of this encounter
--- OUTSIDE RECORDS SUMMARY | 2025-02-12 16:15 | External Medical Summary | Summary of Care ---
Author Name Unknown Organization [facility] Address [address] [facility] [place] [address] Phone [phone] Care Team Providers Care Manager Labor Relations Name Role Phone Jay Gonzales MD Primary Care Provi [facility] Reason for Visit * Reason Onset Date Comments Test Results 12/30/2024 Unexpected or In determinate Encounter Details Date Type Department Care Team (Late st Contact Info) Description [facility]/30[facility] [address] [place] [address] Sg Storm PA-C [address] [place] [address] Test Results (Unexpected or Indeterminate) Allergies No known active allergiesdocumented as of [...] NOT CUT, CRUSH OR CHEW (TAKE WITH 641=[id number] DAILY) 90 Capsule 1 11/15/2024 Active Gabapentin [...] all this for 10 days. 20 Tablet 12/30/2024 01/10/20 25 Active documented as of this encounter (statuses [...] encounter Miscellaneous Notes * Telephone Encounter - Sg Storm PA-C - 12/31/2024 7:26 AM EDT Report reviewed * Telephone Encounter - Jay Pinedo OSA - 12/30/2024 11:10 PM EDT Hello- The radiologist discovered an unexpected or indeterminate finding on Neha Marks ([id number]) and asks that you review the following report. Study Type: XR SHOULDER, 2 OR MORE VIEWS Date of Study: 12/30/2024 FINDINGS No acute displaced fracture or dislocation. Cortical spurring and cystic change at the greater tuberosity suggestive of chronic rotator cuff tendinopathy and/or tearing. Mild degenerative change of the AC joint IMPRESSION There is a questionable right lung opacity measuring 3.[address] Please respond to this encounter to acknowledge receipt of this message and take responsibility to ensure this report is reviewed. Thank you, TORI Cho Client Service [facility] documented in this encounter Plan of Treatment Upcoming Encounters Date Type Department Care Team (Late st Contact Info) Description 01/03/2025 7:00 AM EDT Laboratory Outpatient Laboratory, [facility] [address] [place] [address] [facility], Lab B1a [address] [place] [address] 01/03/2025 8:30 AM EDT Hospital Encounter Interventional Radiology [facility], [facility] 1st [facility] [address] [place] [address] 01/04/2025 11:40 AM EDT Telemedicine Infectious Disease, [address] [phone] Margie Calles MD [address] [place] [address] 01/14/2025 8:30 AM EDT Appointment Interventional Radiology [facility], [facility] 1st [facility] [address] [place] [address] 01/17/2025 2:30 PM EDT Telemedicine Orthopaedics, [facility] [address] [place] [address] Sg Storm PA-C [address] [place] [address] 02/10/2025 1:00 PM EDT Office Visit Hematology/Oncology [facility] [place] 200 [facility] [place] [address] Tunde Plunkett MD 200 [facility] [place], [place] [address] 02/25/2025 11:00 AM EDT Office Visit Family [facility] [address] [place] [address] Jay Gonzales MD [address] [place] [phone] Scheduled Procedures Name Priority Associated [...] documented as of this encounter Care Teams Manager Labor Relations Relationship Specialty Start Date End Date Jay Gonzales MD [address] [place] [phone] PCP - General Family Medicine 09/13/22 documented as of this encounter
--- OUTSIDE RECORDS SUMMARY | 2025-02-12 16:15 | External Medical Summary | Summary of Care ---
Author Name Unknown Organization [facility] Address [address] [place] [address] Phone [phone] Care Team Providers Care Adjunct Trainer Name Role Phone Jay Gonzales MD Primary Care Provi [facility] Encounter Details Date Type Department Care Team ([facility] Contact Info) Description 12/30/2024 Telephone Family Practice [facility] [address] [place] [address] Casie Liang MD [address] [place] [address] Allergies No known active allergiesdocumented as [...] NOT CUT, CRUSH OR CHEW (TAKE WITH 788=676UT DAILY) 90 Capsule 1 11/15/2024 Active Gabapentin [...] for Wheezing. 6.7 g 3 12/28/2024 Active documented as of this encounter (statuses [...] encounter Miscellaneous Notes * Telephone Encounter - Capri Aly OSA - 12/30/2024 1:56 PM EDT Video apt made pt is aware * Telephone Encounter - Casie Liang MD - 12/30/2024 12:18 PM EDT See ID referral, please schedule documented in this encounter Plan of Treatment Upcoming Encounters Date Type Department Care Team (Late st Contact Info) Description 01/03/2025 8:30 AM EDT Hospital Encounter Interventional Radiology [facility] 1[facility] [address] [place] [address] 01/04/2025 11:40 AM EDT Telemedicine Infectious Disease, [address] [phone] Margie Calles MD [address] [place] [address] 01/14/2025 8:30 AM EDT Appointment Interventional Radiology [facility], [facility] 1st Floor [address] [place] [address] 01/17/2025 2:30 PM EDT Telemedicine Orthopaedics, [facility] [address] [place] [phone] Sg Storm PA-C [address] [place], [place] [phone] 02/10/2025 1:00 PM EDT Office Visit Hematology[facility]On[facility] 200 [facility] [place] [address] Tunde Plunkett MD 200 [place] [address] 02/25/2025 11:00 AM EDT Office Visit Family Practice [facility] [address] [place] [address] Jay Gonzales MD [address] [place] [phone] Scheduled Procedures Name Priority Associated Diagnoses [...] Additional history exists Lipid Panel 08/23/2029 08/23/2024, /, 08/11/2020, Additional history exists DTap/Tdap Vaccines (3 [...] documented as of this encounter Care Teams Adjunct Trainer Relationship Specialty Start Date End Date Jay Gonzales MD [address] [place] [phone] PCP - General Family Medicine 09/13/22 documented as of this encounter
--- OUTSIDE RECORDS SUMMARY | 2025-02-12 16:15 | External Medical Summary | Summary of Care ---
Author Name Unknown Organization [facility] Address [address] [place] [address] Phone [phone] Care Team Providers Care Inspector Plating Name Role Phone Jay Gonzales MD Primary Care Provi [facility] Encounter Details Date Type Department Care Team (Late st Contact Info) Description 12/30/2024 Orders Only Interventional Radiology [facility], [facility] 1st Floor [address] [place] [address] Liliane Jackson, LVN Encounter for general adult medical examination w/o abnormal findings* Allergies No known active allergiesdocumented as of [...] NOT CUT, CRUSH OR CHEW (TAKE WITH [id number]=453QX DAILY) 90 Capsule 1 11/15/2024 Active Gabapentin [...] Description 12/30/2024 2:00 PM EDT [facility] 10[address] [place] [address] Sg Storm PA-C [address] [place] [address] 01/03/2025 8:30 AM EDT Hospital Encounter Interventional Radiology [facility], [facility] 1st Floor [address] [place] [address] 01/14/2025 8:30 AM EDT Appointment Interventional Radiology [facility], [facility] 1st Floor [address] [place] [address] 02/02/2025 1:30 PM EDT Office Visit Hematology/Oncology [facility] [place] [address] [place] [phone] Tunde Plunkett MD [address] [facility] [place] [address] 02/25/2025 11:00 AM EDT Office Visit [facility] [address] [place] [address] Jay Gonzaels MD [address] [place] [phone] Scheduled Orders Name Type Priority Associated Diagnoses Orde r Schedule CBC Lab STAT Encounter for general adult medical examination w/o abnormal findings Expected: 01/03/2025, Expires: 01/30/2025 COMPREHENSIVE METABOLIC PANEL Lab STAT Encounter for general adult medical examination w/o abnormal findings Expected: 01/03/2025, Expires: 01/27/2025 PT INR Lab STAT Encounter for general adult medical examination w/o abnormal findings Expected: 01/03/2025, Expires: 01/30/2025 Scheduled Procedures Name Priority Associated Diagnoses Date/Ti [...] HTN, goal below 130/80 Unspecified essential hypertension Encounter for general adult medical examination w/o abnormal findings- Primary Unspecified general medical examination documented in this encounter Additional Health Concerns Infection Onset Date Last Indicated Resolved Time C. difficile 11/30/2024 11/30/2024 documented as of this encounter Care Teams Inspector Plating Relationship Specialty Start Date End Date Jay Gonzales MD [address] [place] [address] [place] [phone] PCP - General Family Medicine 09/13/22 documented as of this encounter
--- OUTSIDE RECORDS SUMMARY | 2025-02-12 16:15 | External Medical Summary | Summary of Care ---
Author Name Unknown Organization [facility] Address [address] [facility] [place] [address] Phone [phone] Care Team Providers Care Superintendent Distribution Name Role Phone Jay Gonzales MD Primary Care Provi [facility] Reason for Referral * Evaluate & Treat - Unlimited Visits (Within 10 days (routine)) - Authorized Specialty Diagnoses / Procedures Referred By Vaibhav roldan Referred To Contact Physical Therapy / Physical Medicine And Rehab Diagnoses Adhesive capsulitis of right shoulder Sg Storm PA-C [address] [place] [address] Phone: tel: fax: Referral ID Status Reason Start Date Expiration Date Visits Requested Visits Authorized [id number] Authorized Specialty Services Required 12/30/2024 999 999 [...] JX/BURSA W/O US Sg Storm PA-C [address] [place] [address] Phone: tel: fax: Referral ID Status Reason Start Date Expiration Date V isits Requested Visits Authorized [id number] Authorized 12/30/2024 999 999 Reason for Visit [...] (ROM) of shoulder Casie Liang MD [address] [place] [address] Phone: tel: fax: Referral ID Status Reason Start Date Expiration Date Visits Requested Visits Authorized [id number] Authorized Specialty Services Required 12/28/2024 999 999 Encounter Details Date Type Department Care Team (Late st Contact Info) Description 12/30/2024 2:00 PM EDT [facility] [address] [place] [phone] Sg Storm PA-C [address] [place] [phone] Adhesive capsulitis of right shoulder* Allergies No [...] NOT CUT, CRUSH OR CHEW (TAKE WITH 192=678XL DAILY) 90 Capsule 1 11/15/2024 Active Gabapentin [...] performed by Leandro Torres MD at ENDOSCOPY [facility] EGD, FLEXIBLE, DIAGNOSTIC 05/06/2019 normal bx/ESOPHAGOGASTRODUODENOSCOPY (EGD), FLEXIBLE, TRANSORAL, DIAGNOSTIC performed by Leandro Torres MD at ENDOSCOPY [facility] EGD, FLEXIBLE, DIAGNOSTIC 06/20/2022 Portal hypertensive gastropathy, eso varices / ESOPHAGOGASTRODUODENOSCOPY (EGD), FLEXIBLE, TRANSORAL, DIAGNOSTIC performed by Leandro Torres MD at ENDOSCOPY [facility] LASIK SURGERY THUMB FX/DISLOC (MELÉNDEZ), REPAIR [...] NOT CUT, CRUSH OR CHEW (TAKE WITH 281=081KC DAILY) 90 Capsule 1 Gabapentin 100 MG [...] injected the patient Sg Storm PA-C Orthopaedics, [address] [address] 12/30/2024 2:52 PM documented in this encounter [...] 8:30 AM EDT Hospital Encounter Interventional Radiology [facility], [facility] 1st Floor [address] [place] [address] 01/04/2025 11:40 AM EDT Telemedicine Infectious Disease, [address] [address] Margie Calles MD [address] [place] [address] 01/14/2025 8:30 AM EDT Appointment Interventional Radiology [facility], [facility] 1st Floor [address] [place] [phone] 01/17/2025 2:30 PM EDT [facility] 10[address] [place] [phone] Sg Storm PA-C [address] [place] [phone] 02/10/2025 1:00 PM EDT Office Visit Hematology/Oncology [facility] 200 [place] [phone] Tunde Plunkett MD [address] [place] [address] 02/25/2025 11:00 AM EDT Office Visit Family [address] [phone] Jay Gonzales MD [address] [place] [phone] Scheduled Orders Name Type Priority Associated Diagnoses [...] chest CT. A request to the Radiology Third [place](MARYANN) was placed at 22:13 on 12/30/2024 in [...] Recommendchest CT. A request to the Radiology Third [place](MARYANN) was placed at22:13 on 12/30/2024 in the [...] documented as of this encounter Care Teams Superintendent Distribution Relationship Specialty Start Date End Date Jay Gonzales MD [address] [place] [phone] PCP - General Family Medicine 09/13/22 documented as of this encounter
--- OUTSIDE RECORDS SUMMARY | 2025-02-12 16:15 | External Medical Summary | Summary of Care ---
Author Name Unknown Organization [facility] Address [address] [facility] [place] [address] Phone [phone] Care Team Providers Care Youth Associate Name Role Phone Jay Gonzales MD Primary Care Provi [facility] Reason for Visit * Reason Onset Date Comments Test Results 12/30/2024 Unexpected or In determinate Encounter Details Date Type Department Care Team (Late st Contact Info) Description 12/30/2024 [facility] [address] [place] [address] Sg Storm PA-C [address] [place] [address] Test Results (Unexpected or Indeterminate) [...] NOT CUT, CRUSH OR CHEW (TAKE WITH 803=979WM DAILY) 90 Capsule 1 11/15/2024 Active Gabapentin [...] Miscellaneous Notes * Telephone Encounter - Jay Pinedo, TORI - 12/30/2024 11:10 PM EDT Hello- The radiologist discovered an unexpected or indeterminate finding on Neha Marks ([id number]) and asks that you review the following [...] ensure this report is reviewed. Thank you, Jay Pinedo, TORI Client Service Rep [facility][1] documented in this encounter Plan of Treatment Upcoming Encounters Date Type Department Care Team (Late st Contact Info) Description 01/03/2025 8:30 AM EDT Hospital Encounter Interventional Radiology [facility], [facility] 1st Floor [address] [place] [address] 01/04/2025 11:40 AM EDT Telemedicine Infectious Disease, [address] [phone] Margie Calles MD [address] [place] [address] 01/14/2025 8:30 AM EDT Appointment Interventional Radiology [facility], [facility] 1st Floor [address] [place] [address] 01/17/2025 2:30 PM EDT Telemedicine Orthopaedics, [facility] [address] [place] [address] Sg Storm PA-C [address] [place] [address] 02/10/2025 1:00 PM EDT Office Visit Hematology/Oncology [address] [place] [phone] Tunde Plunkett MD [address] [place] [address] [place] [address] 02/25/2025 11:00 AM EDT Office Visit [address] [phone] Jay Gonzales MD [address] [place] [phone] Scheduled Procedures Name Priority Associated Diagnoses [...] documented as of this encounter Care Teams Youth Associate Relationship Specialty Start Date End Date Jay Gonzales MD [address] [place] [phone] PCP - General Family Medicine 09/13/22 documented as of this encounter
--- OUTSIDE RECORDS SUMMARY | 2025-02-12 16:15 | External Medical Summary | Summary of Care ---
Author Name Unknown Organization [facility] Address [address] [facility] [place] [address] Phone [phone] Care Team Providers Care Can Intake Worker Name Role Phone Jay Gonzales MD Primary Care Provi [facility] Reason for Referral * Evaluate & Treat - Unlimited Visits (Within 10 days (routine)) - Authorized Specialty Diagnoses / Procedures Referred By Vaibhav roldan Referred To Contact Infectious Diseases / Infectious Disease Diagnoses Clostridium difficile enteritis Casie Liang MD [address] [place] [address] Phone: tel: fax: Referral ID Status Reason Start Date Expiration Date Visits Requested Visits Authorized [id number] Authorized Specialty Services Required 12/30/2024 999 999 Question Answer Referral Priority Within 10 days (routine) Where should this appointment be scheduled? [facility] What condition is the patient being seen for? All Other Conditions * Evaluate & Treat - Unlimited Visits (Within 10 days (routine)) - Authorized Specialty Diagnoses / Procedures Referred By Vaibhav roldan Referred To Contact Orthopaedic Surgery / Orthopedics Diagnoses Right shoulder pain, unspecified chronicity Limited range of motion (ROM) of shoulder Casie Liang MD [address] [place] [address] Phone: tel: fax: Referral ID Status Reason Start Date Expiration Date Visits Requested Visits Authorized [id number] Authorized Specialty Services Required 12/28/2024 999 999 Question Answer Referral Priority Within 10 days (routine) Where should this appointment be scheduled? [facility] What body part is the patient being seen for? Shoulder What condition is the patient being seen for? 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 Active QUEtiapine Fumarate 25 MG Oral Tablet (SEROquel)Indica tions:Mood disorder (HCC) Take 1 Tablet by mouth at bedtime. 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 90 Tablet 3 4 Active Venlafaxine HCl ER 150 MG Oral Capsule Extended Release 24 Hour (Effexor XR)Indications:M ood disorder (HCC) TAKE 1 CAPSULE BY MOUTH EVERY DAY DO NOT CUT, CRUSH, OR CHEW 90 Capsule 1 5 Active Venlafaxine HCl ER 75 MG Oral Capsule Extended Release 24 Hour (Effexor XR)Indications:M ood disorder (HCC) TAKE 1 CAPSULE BY MOUTH DAILY. DO NOT CUT, CRUSH OR CHEW (TAKE WITH [id number] DAILY) 90 Capsule 1 5 Active Gabapentin [...] Active Vancomycin HCl 125 MG Oral Capsule (Vancocin)Indica tions:Clostridiu m difficile enteritis Take 1 Capsule by mouth every 6 hours. 56 Capsule 5 Active Ventolin HFA 108 (90 Base) MCG/ACT Inhalation Aerosol SolutionIndicati ons:Wheezing Inhale 2 Puffs by mouth every 4 hours as needed for Wheezing. 6.7 g 3 5 Active Fluticasone Propionate 50 MCG/ACT Nasal Suspension (Flonase)Indicat ions:Allergic rhinitis due to pollen, unspecified seasonality USE 2 SPRAYS EACH NOSTRIL EVERY 12 HRS X 2 WKS, THEN 1 SPRAY EVERY 12 HRS AFTER SALINE RINSE 48 mL 1 1 12/29/19 25 Discontinu ed(Medicat ion List Clean Up) Benzonatate 100 MG Oral Capsule (Tessalon Perles) Take 1 Capsule by mouth 3 times a day as needed for Cough. Do not cut, crush, or chew. 50 Capsule 1 2 12/29/19 25 Discontinu ed(Medicat ion List Clean Up) Ventolin HFA 108 (90 Base) MCG/ACT Inhalation Aerosol SolutionIndicati ons:Wheezing,Acu te cough Inhale 2 Puffs by mouth every 4 hours as needed for Wheezing. 6.7 g 3 4 12/29/19 25 Discontinu ed(Refill) tiZANidine HCl 2 MG Oral Tablet (Zanaflex)Indica tions:Chronic right shoulder pain TAKE 1 TABLET BY MOUTH DAILY AT BEDTIME NEEDED FOR MUSCLE SPASMS. 30 Tablet 5 12/29/19 25 Discontinu ed(Medicat ion List Clean Up) [...] Smoke Exposure: Never Smokeless Tobacco: Never Tobacco Cessation:Ready to Q uit: No; Counseling Given: Yes Comments:10 per day Alcohol Use Standard Drinks/Week [...] Sign Reading Time Taken Comments Blood Pressure 152/82 12/28/2024 3:32 PM EDT AVG Pulse 80 12/28/2024 3:20 PM EDT Temperature 37.3 °C (99.1 °F) 12/28/2024 3:20 PM ED T Respiratory Rate 20 12/28/2024 3:20 PM EDT Oxygen Saturation 95% 12/28/2024 3:20 PM EDT Inhaled Oxygen Concentration - - Weight 74.8 kg (165 lb) 12/28/2024 3:20 PM EDT Height - - Body Mass Index 29.46 11/12/2024 11:53 AM EST documented in this encounter Progress Notes * Casie Liang MD - 12/28/2024 3:56 PM EDT Images from the original note were not included. Subjective Neha Marks is a 64 year old female that presents for Follow Up Follow up visit. C.diff, on vancomycin, diarrhea persist 6-7 stools/day, after each meal , no blood, watery to mushy(onset of diarrhea 4 months ago?) No abd pain, no fever/chills. No nighttime symptoms HCC, seen oncology, needs to do radiation treatment, scheduled Right shoulder pain and limited ROM 1.5 month. No pain at rest, only with ROM 8/10. She take Tylenol 50 mg twice daily with some relief Not able to tolerate Tizanidine (very sleepy) No injury. No neck pain, no numbness/tingling/weakness Depression/anxiety. On Effexor, needs to increase Gabapentin to 3 times daily, denies side effects.No SI/SP/HI/HP/BEAUCHAMP Stress level is high, personal health problems, family members are sick Patient declines therapy Tobacco use 1/2 pack per day. No ETOH/no drugs Objective BP 152/82 Comment: AVG | Pulse 80 | Temp 99.1 °F (37.3 °C) (Tympanic) | Resp 20 | Wt 165 lb (74.8kg) | SpO2 95% | BMI 29.46 kg/m² | BSA 1.82 m² BP Readings from Last 3 Encounters: 12/28/24 152/82 11/30/24 110/58 11/18/24 144/70 Wt Readings from Last 3 Encounters: 12/28/24 165 lb (74.8 kg) 11/30/24 162 lb 6.4 oz (73.7 kg) 11/12/24 164 lb 4.8 oz (74.5 kg) BMI Readings from Last 3 Encounters: 12/28/24 29.46 kg/m² 11/30/24 29.00 kg/m² 11/12/24 29.34 kg/m² Physical Exam Constitutional: General: She is not in acute distress. Appearance: Normal appearance. HENT: Head: Normocephalic and atraumatic. Right Ear: External ear normal. Left Ear: External ear normal. Nose: Nose normal. Mouth/Throat: Mouth: Mucous membranes are moist. Pharynx: Oropharynx is clear. Eyes: Conjunctiva/sclera: Conjunctivae normal. Pupils: Pupils are equal, round, and reactive to light. Cardiovascular: Rate and Rhythm: Normal rate and regular rhythm. Pulses: Normal pulses. Comments: 138/70 Pulmonary: Effort: Pulmonary effort is normal. Breath sounds: Normal breath sounds. Abdominal: General: Bowel sounds are normal. There is no distension. Palpations: Abdomen is soft. Tenderness: There is no abdominal tenderness. Musculoskeletal: Right shoulder: Decreased range of motion. Cervical back: Neck supple. Right lower leg: No edema. Left lower leg: No edema. Comments: Very limited active and passive ROM due to pain Skin: General: Skin is warm and dry. Findings: No rash. Neurological: General: No focal deficit present. Mental Status: She is alert and oriented to person, place, and time. Psychiatric: Mood and Affect: Mood is depressed. Behavior: Behavior normal. 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 documented in this encounter Nursing Notes * Cj Posey LPN - 12/28/2024 3:22 PM EDT The patient has been properly identified by confirmation of name and date of . Pt here for 4 week follow up. Had labs. Still being treated for c-diff, but patient reports no better-- still having diarrhea 6-7 x daily (every time she eats or drinks). Right shoulder pain no better, can barely move it. Took muscle relaxer once but then ended up sleeping until 4pm the next day so she didn't take it again. Currently taking gabapentin 100 mg BID. 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) - hepatology follow up * Assessment & Plan Note - Casie Liang MD - 12/30/2024 12:16 PM EDTAssociated Problem(s): HTN, goal below 130/80 documented in this encounter Plan of Treatment Upcoming Encounters Date Type Department Care Team (Late st Contact Info) Description 01/03/2025 8:30 AM EDT Hospital Encounter [place] [facility] [address] [place] [address] 01/04/2025 11:40 AM EDT Telemedicine Infectious Disease, [facility] [address] [place] [phone] Margie Calles MD [address], [place] [phone] 01/14/2025 8:30 AM EDT Appointment Interventional Radiology [facility] [address] [place] [address] 01/17/2025 2:30 PM EDT Telemedicine Orthopaedics, [facility] [address] [place] [phone] Sg Storm PA-C [address] [place], [place] [phone] 02/10/2025 1:00 PM EDT Office Visit Hematology/Oncology [facility] [address] [place] [phone] Tunde Plunkett MD [address] [place] [address] 02/25/2025 11:00 AM EDT Office Visit [facility] [address] [place] [address] Jay Gonzales MD [address] [place] [phone] Scheduled Orders Name Type Priority Associated Diagnoses Orde r Schedule XR SHOULDER, 2 OR MORE VIEWS Medical Imaging Routine Right shoulder pain, unspecified chronicity Ordered: 12/28/2024 Scheduled Procedures Name Priority Associated Diagnoses Date/Ti me COLONOSCOPY FLEXIBLE PROXIMA L DIAGNOSTIC Recall Personal history of colonic polyps Scheduled Referrals Name Type Priority Associated Diagnoses Orde r Schedule ORTHOPAEDICS REFERRAL OP Referral Within 10 days (routine) Right shoulder pain, unspecified chronicity Limited range of motion (ROM) of shoulder Ordered: 12/28/2024 INFECTIOUS DISEASE REFERRAL OP Referral Within 10 [...] EKG FOR HTN 12/30/2024 GFR 11/30/2025 11/30/2024, 09/20, 08/23/2024, Additional history exists Diabetes Screening 11/30/2027 [...] HTN, goal below 130/80 Unspecified essential hypertension documented in this encounter Additional Health Concerns Infection Onset Date Last Indicated Resolved Time C. difficile 11/30/2024 11/30/2024 documented as of this encounter Care Teams Can Intake Worker Relationship Specialty Start Date End Date Jay Gonzales MD [address] [place] [phone] PCP - General Family Medicine 09/13/22 documented as of this encounter"
--- OUTSIDE RECORDS SUMMARY | 2025-02-12 16:15 | External Medical Summary | Summary of Care ---
Author Name Unknown Organization [facility] Address [address] [facility] [place] [address] Phone [phone] Care Team Providers Care Process Design Chemical Engineer Name Role Phone Jay Gonzales MD Primary Care Provi [facility] Reason for Visit * Reason Onset Date Comments Med Request 12/31/2024 Encounter Details Date Type Department Care Team ([facility] Contact Info) Description 12/31/2024 Telephone Family Practice [address] [phone] Casie Liang MD [address] [place] [address] Med Request Allergies No known active allergiesdocumented as [...] NOT CUT, CRUSH OR CHEW (TAKE WITH [id number] DAILY) 90 Capsule 1 5 Active Gabapentin [...] Tablet before bedtime. 20 Tablet 5 Active Fidaxomicin 200 MG Oral Tablet [...] encounter Miscellaneous Notes * Telephone Encounter - Buffy Benavidez, [facility] - 12/31/2024 2:42 PM EDT Please resend Rx to [id number] [address]. Confirmed pharmacy did not receive original prescription. Pending Prescriptions: Disp Refills Fidaxomicin 200 MG Oral Tablet (Dificid) 20 Tab*0 Sig: Take 1 Tablet by mouth in the morning and 1 Tablet before bedtime. Last Visit: 12/28/2024 (in office), Visit date not found (telemedicine) 02/25/2025 If no future appointments scheduled, and last appointment is greater than a year ago, please schedule patient for a follow-up appointment Last date the medication was ordered: 12/30/2024 Patient Phone Numbers Labs: Lab Results Component Value Date/Time CREAT 0.5 11/30/2024 12:28 PM CREAT 0.8 10/10/2020 09:12 AM POTASSIUM 3.2 (L) 11/30/2024 12:28 PM POTASSIUM 4.1 10/10/2020 09:12 AM TSH 2.65 04/10/2021 01:15 PM TSH 2.49 02/17/2019 10:04 AM TSH 1.02 11/22/1996 02:40 PM LDL 87 08/23/2024 12:40 PM LDL 85 08/11/2020 02:51 PM LDL NOT APPLICABLE 08/11/2020 02:51 PM ALT 37 (H) 11/30/2024 12:28 PM ALT 31 10/10/2020 09:12 AM HGBA1C 6.0 (H) 02/17/2019 10:04 AM documented in this encounter Plan of Treatment Upcoming Encounters Date Type Department Care Team (Late st Contact Info) Description 01/04/2025 11:40 AM EDT Telemedicine Infectious Disease, [address] [phone] Margie Calles MD [address] [place] [facility] [place] [address] 01/14/2025 8:30 AM EDT Appointment Interventional Radiology [facility] [address] [facility] [place] [phone] 01/17/2025 2:30 PM EDT [place] [place] [address] [place] [address] Sg Storm PA-C [address] [place] [address] 02/10/2025 1:00 PM EDT Office Visit Hematology/Oncology [employer] [address] [facility] [place] [phone] Tunde Plunkett MD [address] [facility] [place] [address] 02/25/2025 11:00 AM EDT Office Visit [facility] [address] [place] [address] Jay Gonzales MD [address] [place] [phone] Scheduled Procedures Name Priority Associated [...] below 130/80 Unspecified essential hypertension C. difficile diarrhea Intestinal infection due to clostridium difficile documented in this encounter Additional Health Concerns Infection Onset Date Last Indicated Resolved Time C. difficile 11/30/2024 11/30/2024 documented as of this encounter Care Teams Process Design Chemical Engineer Relationship Specialty Start Date End Date Jay Gonzales MD [address] [place] [phone] PCP - General Family Medicine 09/13/22 documented as of this encounter
--- OUTSIDE RECORDS SUMMARY | 2025-02-12 16:16 | External Medical Summary | Summary of Care ---
Author Name Unknown Organization [facility] Address [address] [facility] [place] [address] Phone [phone] Care Team Providers Care Log Chain Feeder Name Role Phone aJy Gonazles MD Primary Care Provi syl Reason for Referral * Medication Prior Authorization - Closed Specialty Diagnoses / Procedures Referred By Vaibhav t Referred To Contact Diagnoses Clostridium difficile enteritis Jay Gonzales MD [address] [place] [phone] Phone: tel: fax: Referral ID Status Reason Start Date Expiration Date Visits Re quested Visits Authorized [id number] Closed 999 999 Reason for Visit * Reason Onset Date Comments Advice 12/13/2024 Status Check 12/15/2024 Encounter Details Date Type Department Care Team ([facility] Contact Info) Description 12/13/2024 Telephone Family Practice [address] [phone] Jay Gonzales MD [address] [place] [phone] Advice; Status Check Allergies No known active allergiesdocumented as of this encounter (statuses as of 12/15/2024) Medications Multiple Vitamins-Minera ls (CENTRUM ADULTS) TABS Take by mouth daily. Active Fluticasone Propionate 50 MCG/ACT Nasal Suspension (Flonase)Indica tions:Allergic rhinitis due to pollen, unspecified seasonality USE 2 SPRAYS EACH NOSTRIL EVERY 12 HRS X 2 WKS, THEN 1 SPRAY EVERY 12 HRS AFTER SALINE RINSE 48 mL 1 1 Active Additional Information Patient taking differently:, USE 2 SPRAYS EACH NOSTRIL EVERY 12 HRS X 2 WKS, THEN 1 SPRAY EVERY 12 HRS AFTER SALINE RINSE,Indications: as needed, Reported on 11/30/2024 Benzonatate 100 MG Oral Capsule (Tessalon Perles) Take 1 Capsule by mouth 3 times a day as needed for Cough. Do not cut, crush, or chew. 50 Capsule 1 2 Active Additional Information Patient not taking.Reported on 11/30/2024 QUEtiapine Fumarate 25 MG Oral Tablet (SEROquel)Indic ations:Mood disorder (HCC) Take 1 Tablet by mouth at bedtime. 90 Tablet 3 4 Active Ventolin HFA 108 (90 Base) MCG/ACT Inhalation Aerosol SolutionIndicat ions:Wheezing,A cute cough Inhale 2 Puffs by mouth every 4 hours as needed for Wheezing. 6.7 g 3 4 Active Carvedilol 6.25 MG Oral [...] NOT CUT, CRUSH OR CHEW (TAKE WITH 130=911OG DAILY) 90 Capsule 1 5 Active tiZANidine HCl 2 MG Oral Tablet (Zanaflex)Indic ations:Chronic right shoulder pain Take 1 Tablet by mouth at bedtime as needed for Muscle spasms. 30 Tablet 5 Active Gabapentin 100 MG Oral Capsule [...] every 6 hours. 56 Capsule 5 Active Vancomycin HCl 125 MG Oral Capsule (Vancocin)Indic ations:Clostrid ium difficile enteritis Take 1 Capsule by mouth every 6 hours for 14 days. 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) 08/20/2024 Major depressive disorder with single episode HTN, goal below 130/80 04/03/2023 Wears dentures 04/18/2021 Thrombocytopenia 08/18/2020 Portal hypertension 06/09/2019 Mood disorder 02/16/2018 Other cirrhosis of liver 09/14/2009 Menopause 09/11/2009 Overview (09/11/2009): Age 46 Generalized anxiety disorder 07/03/2009 documented as of this encounter (statuses as of 12/15/2024) Resolved Problems Problem Noted Date Diagnosed Date Resolved Date OTHER 11/15/2009 08/20/2018 Overview (11/20/2009): Genotype 1a Chronic hepatitis C 09/21/2009 08/20/20 18 documented as of this encounter (statuses as of 12/15/2024) Immunizations Name Administration Dates Next Due TDAP, [...] Telephone Encounter - Jay Gonzales MD - 12/15/2024 2:26 PM EST Prior Authorization details added to script Also copying GI (Dr. Marcum and Dr. Perez), appreciate any additional recommendations, considering complicated h/o cirrhosis/HCC -- CDIFF + Persistent diarrhea, despite 14 days of Vancomycin I am extending Vancomycin for 14 more days * Telephone Encounter - Cj Grissom, weir fisherman - 12/15/2024 11:45 AM EST Pt's requesting refill for antibiotic stating first round did not work. Caller stating insurance will also require a prior authorization. Please see separate encounter for pa. Did you pend patient's preferred pharmacy and medication before forwarding?yes [facility]acy: [id number] [address] Pending Prescriptions: Disp Refills Vancomycin HCl 125 MG Oral Capsule (Vanco*56 Cap*0 Sig: Take 1 Capsule by mouth every 6 hours. Last Visit: 11/30/2024 (in office), Visit date not found (telemedicine) Next Visit: 12/28/2024 If no future appointments scheduled, and last appointment is greater than a year ago, please schedule patient for a follow-up appointment Last date the medication was ordered: 12/01/2024 Is this request for a controlled substance?No Urine Drug Screen:No results found for this or any previous visit. Patient Phone Numbers Labs: Lab Results Component [...] AM HGBA1C 6.0 (H) 02/17/2019 10:04 AM * Telephone Encounter - Ama Perry LPN - 12/13/2024 3:36 PM EST Called and spoke with pt Pt states that nothing has changed much since visit Still having diarrhea Still having 10 BM's or so a day. Can be less, but not often Feeling run down Vancomycin will be done in a couple of days Still going to the bathroom every time after she eats Has been drinking Gatorade, 7up, & roughly 2 bottles of water a day If another round of vancomycin would be needed, a PA would need to be done through insurance ([employer]) * Telephone Encounter - Fani Echevarria OSA - 12/13/2024 1:37 PM EST Pams called in and said she is not getting any better and would like the nurse to call her as soon as possible. documented in this encounter Plan of Treatment Upcoming Encounters Date Type Department Care Team ([facility] st Contact Info) Description 12/28/2024 3:00 PM EDT Office Visit [address] [phone] Casie Liang MD [address] [place] [address] 01/03/2025 8:30 AM EDT Appointment Interventional Radiology [facility] [address] [place] [address] 01/14/2025 8:30 AM EDT Appointment Interventional Radiology [facility] [address] [place] [address] 02/02/2025 1:30 PM EDT Office Visit Hematology/Oncology [facility] [address] [place] [address] Tunde Plunkett MD [address] [place] [address] 02/25/2025 11:00 AM EDT Office Visit [address] [phone] Jay Gonzales MD [address] [place] [phone] Scheduled Procedures Name Priority Associated Diagnoses Date/Ti [...] (FLU shot) (#1) 2024 DXA Scan 2024 GFR 11/30/2025 11/30/2024, 12/12/2023, 08/23/2024, Additional history [...] as of this encounter Visit Diagnoses Diagnosis 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)- Primary Chronic hepatitis C without mention of hepatic coma Clostridium difficile enteritis Intestinal infection due to clostridium difficile documented in this encounter Additional Health Concerns Infection Onset Date Last Indicated Resolved Time C. difficile 11/30/2024 11/30/2024 documented as of this encounter Care Teams Log Chain Feeder Relationship Specialty Start Date End Date Jay Gonzales MD [address] [place] [phone] PCP - General Family Medicine 09/13/22 documented as of this encounter
--- OUTSIDE RECORDS SUMMARY | 2025-02-12 16:16 | External Medical Summary | Summary of Care ---
Author Name Unknown Organization [facility] Address [address] [facility] [place] [address] Phone [phone] Care Team Providers Care Ball Rolling Machine Operator Name Role Phone Jay Gonzales MD Primary Care Provi syl Reason for Visit * Reason Onset Date Comments Appointment 12/13/2024 Encounter Details Date Type Department Care Team (Late st Contact Info) Description 12/13/2024 Telephone Hematology/Oncology Treatment, [place] [address] [place] [phone] Tunde Plunkett MD [address] [place] [address] Appointment Allergies No known active allergiesdocumented as of this encounter (statuses as of 12/14/2024) Medications Multiple Vitamins-Mineral s (CENTRUM ADULTS) TABS [...] 11/30/2024 QUEtiapine Fumarate 25 MG Oral Tablet (SEROquel)Indica [...] NOT CUT, CRUSH OR CHEW (TAKE WITH [id number] DAILY) 90 Capsule 1 5 Active tiZANidine HCl 2 MG Oral Tablet (Zanaflex)Indica tions:Chronic right shoulder pain Take 1 Tablet by [...] hours for 14 days. 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) 08/20/2024 Major depressive disorder with single episode HTN, goal below 130/80 04/03/2023 Wears dentures 04/18/2021 Thrombocytopenia 08/18/2020 Portal hypertension 06/09/2019 Mood disorder 02/16/2018 Other cirrhosis of liver 09/14/2009 Menopause 09/11/2009 Overview (09/11/2009): Age 46 Generalized anxiety disorder 07/03/2009 documented as of this encounter (statuses as of 12/14/2024) Resolved Problems Problem Noted Date Diagnosed Date Resolved Date OTHER 11/15/2009 08/20/2018 Overview (11/20/2009): Genotype 1a Chronic hepatitis C 09/21/2009 08/20/20 18 documented as of this encounter (statuses as of 12/14/2024) Immunizations Name Administration Dates Next Due TDAP, [...] Telephone Encounter - Mulugeta Lee OSA - 12/13/2024 10:56 AM EST Patient will call back to schedule after speaking with her . Phone number provided * Telephone Encounter - Samantha Strange RN - 12/13/2024 10:41 AM EST Scheduling: please call patient to schedule follow up appt with Dr Plunkett. Thanks! * Telephone Encounter - Samantha Strange RN - 12/13/2024 10:41 AM EST ----- Message from Gaby Silver sent at 12/13/2024 7:42 AM EST ----- ----- Message ----- From: Tunde Plunkett MD Sent: 12/12/2024 6:13 PM EST To: [facility] Hem/Onc Scheduling Pool/Class Heme-Onc nurse pool: Now have some more information from [facility] interventional radiologist regarding liver directed treatment that they are planning. Obviously we could not give her Bevacizumab before and after the liver directed treatment but we could consider for starting immunotherapy. If she is ready to discuss with me now, please schedule her for an appointment. Thanks. Dr. Tunde Plunkett Hem/Onc documented in this encounter Plan of Treatment Upcoming Encounters Date Type Department Care Team ([facility] Contact Info) Description 12/28/2024 3:00 PM EDT Office Visit [address] [phone] Casie Liang MD [address] [place] [address] 01/03/2025 8:30 AM EDT Appointment Interventional Radiology [facility] [place] [facility] 1st Floor [address] [place] [address] 01/14/2025 8:30 AM EDT Appointment Interventional Radiology [facility] [place], [facility] 1st Floor [address] [place] [address] 02/25/2025 11:00 AM EDT Office Visit Family Practice [address] [phone] Jay Gonzales MD [address] [place] [phone] Scheduled Procedures Name Priority Associated Diagnoses [...] 2024 DXA Scan 2024 GFR 11/30/2025 11/30/2024, 09/20, 08/23/2024, Additional history [...] documented as of this encounter Care Teams Ball Rolling Machine Operator Relationship Specialty Start Date End Date Jay Gonzales MD [address] [place] [phone] PCP - General Family Medicine 09/13/22 documented as of this encounter
--- OUTSIDE RECORDS SUMMARY | 2025-02-12 16:16 | External Medical Summary | Summary of Care ---
Author Name Unknown Organization [facility] Address [address] [facility] [place] [place] [address] Phone [phone] Care Team Providers Care Hospital Ward Clerk Name Role Phone Jay Gonzales MD Primary Care Provi syl Reason for Visit * Reason Comments Outpatient Testing Encounter Details Date Type Department Care Team (Late st Contact Info) Description 11/30/2024 12:30 PM EST Laboratory Laboratory Patient Service [address] [phone] [address] [address] Diarrhea, unspecified type Allergies No known active allergiesdocumented as of this encounter (statuses as of 11/30/2024) Medications Multiple Vitamins-Mineral s (CENTRUM ADULTS) TABS Take by mouth daily. Active Fluticasone Propionate 50 MCG/ACT Nasal Suspension (Flonase)Indicat ions:Allergic rhinitis due to pollen, unspecified seasonality USE 2 SPRAYS EACH NOSTRIL EVERY 12 HRS X 2 WKS, THEN 1 SPRAY EVERY 12 HRS AFTER SALINE RINSE 48 mL 1 Active Additional Information Patient taking differently:, [...] NOT CUT, CRUSH OR CHEW (TAKE WITH [id number] DAILY) 90 Capsule 1 5 Active tiZANidine [...] week 3.. 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) 08/20/2024 Major depressive disorder with single episode HTN, goal below 130/80 04/03/2023 Wears dentures 04/18/2021 Thrombocytopenia 08/18/2020 Portal hypertension 06/09/2019 Mood disorder 02/16/2018 Other cirrhosis of liver 09/14/2009 Menopause 09/11/2009 Overview (09/11/2009): Age 46 Generalized anxiety disorder 07/03/2009 documented as of this encounter (statuses as of 11/30/2024) Resolved Problems Problem Noted Date Diagnosed Date Resolved Date OTHER 11/15/2009 08/20/2018 Overview (11/20/2009): Genotype 1a Chronic hepatitis C 09/21/2009 08/20/20 18 documented as of this encounter (statuses as of 11/30/2024) Immunizations Name Administration Dates Next Due TDAP, [...] Care Team (Late st Contact Info) Description 12/28/2024 3:00 PM EDT Office Visit [address] [place] [phone] Casie Liang MD [address] [place] [address] 01/03/2025 8:30 AM EDT Appointment [place]ventional [place] [facility] [place] [facility] 1st [address] [place] [address] 01/14/2025 8:30 AM EDT Appointment Interventional Rad[place] [facility] [place] [facility] 1[address] [place] [address] 02/25/2025 11:00 AM EDT Office Visit [address] [phone] Jay Gonzales MD [address] [place] [phone] Pending Results Name Type Priority Associated Diagnoses Date /Time COMPREHENSIVE METABOLIC PANEL Lab Routine Diarrhea, unspecified type 11/30/2024 12:28 PM EST CBC WITH WBC DIFFERENTIAL Lab Routine Diarrhea, unspecified type 11/30/2024 12:28 PM EST CBC Lab Routine Diarrhea, unspecified type 11/30/2024 12:28 PM EST DIFFERENTIAL, AUTOMATED Lab Routine Diarrhea, unspecified type 11/30/2024 12:28 PM EST Scheduled Procedures Name Priority Associated Diagnoses Date/Ti [...] Colorectal Cancer Screening 05/06/2024 COVID-19 Vaccine ( - season) 2024 Influenza Vaccine (FLU shot) (#1) 2024 DXA Scan 2024 *BASELINE EKG FOR HTN 11/14/2024 GFR 10/11/2025 10/11/2024, 01/2024, 03/13/2023, Additional history exists Diabetes Screening 10/11/2027 10/11/2024, 1 10/23/2023, 03/13/2023, Additional history exists Lipid Panel 08/23/2029 08/23/2024, [...] as of this encounter Visit Diagnoses Diagnosis Diarrhea, unspecified type documented in this encounter Care Teams Hospital Ward Clerk Relationship Specialty Start Date End Date Jay Gonzales MD [address] [place] [phone] PCP - General Family Medicine 09/13/22 documented as of this encounter
--- OUTSIDE RECORDS SUMMARY | 2025-02-12 16:16 | External Medical Summary | Summary of Care ---
Author Name Unknown Organization [facility] Address [address] [facility] [place] [address] Phone [phone] Care Team Providers Care Human Resource Management Instructor Name Role Phone Jay Gonzales MD Primary Care Provi syl Reason for Visit * Reason Onset Date Comments Appointment 12/13/2024 Encounter Details Date Type Department Care Team (Late st Contact Info) Description 12/13/2024 Telephone Hematology/Oncology Treatment, [place] [address] [place] [phone] Tunde Plunkett MD 200 [place] [address] Appointment Allergies No known active allergiesdocumented as of this encounter (statuses as of 12/15/2024) Medications Multiple Vitamins-Mineral s (CENTRUM ADULTS) TABS [...] NOT CUT, CRUSH OR CHEW (TAKE WITH 085=140IG DAILY) 90 Capsule 1 5 Active tiZANidine [...] Telephone Encounter - Mulugeta Lee OSA - 12/15/2024 8:41 AM EST Left message * Telephone Encounter - Mulugeta Lee OSA [...] pool: Now have some more information from [facility] interventional radiologist regarding liver directed treatment that [...] Description 12/28/2024 3:00 PM EDT Office Visit [address] [phone] Casie Liang MD [address] [place] [address] 01/03/2025 8:30 AM EDT Appointment Interventional Radiology [facility] [place], [facility] 1st Floor [address] [place] [address] 01/14/2025 8:30 AM EDT Appointment Interventional Radiology [facility], [facility] [address]st Floor [address] [place] [address] 02/25/2025 11:00 AM EDT Office Visit Family [facility] [address] [place] [address] Jay Gonzales MD [address] [place] [phone] Scheduled Procedures Name Priority Associated Diagnoses [...] documented as of this encounter Care Teams Human Resource Management Instructor Relationship Specialty Start Date End Date Jay Gonzales MD [address] [place] [phone] PCP - General Family Medicine 09/13/22 documented as of this encounter
--- OUTSIDE RECORDS SUMMARY | 2025-02-12 16:16 | External Medical Summary | Summary of Care ---
Author Name Unknown Organization [facility] Address [address] [facility] [place] [address] Phone [phone] Care Team Providers Care Environmental Designer Name Role Phone Jay Gonzales MD Primary Care Provi syl Reason for Visit * Reason Comments Outpatient Testing Encounter Details Date Type Department Care Team (Late st Contact Info) Description 11/30/2024 4:50 PM EST Laboratory Laboratory Patient Service [address] [phone] [address] [address] Diarrhea, unspecified type Allergies No known active allergiesdocumented as of this encounter (statuses as of 12/01/2024) Medications Multiple Vitamins-Mineral s (CENTRUM ADULTS) TABS [...] NOT CUT, CRUSH OR CHEW (TAKE WITH 466=[id number] DAILY) 90 Capsule 1 5 Active tiZANidine [...] as of this encounter (statuses as of 12/01/2024) Active Problems Problem Noted Date Diagnosed Date 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) 08/20/2024 Major depressive disorder with single episode HTN, goal below 130/80 04/03/2023 Wears dentures 04/18/2021 Thrombocytopenia 08/18/2020 Portal hypertension 06/09/2019 Mood disorder 02/16/2018 Other cirrhosis of liver 09/14/2009 Menopause 09/11/2009 Overview (09/11/2009): Age 46 Generalized anxiety disorder 07/03/2009 documented as of this encounter (statuses as of 12/01/2024) Resolved Problems Problem Noted Date Diagnosed Date Resolved Date OTHER 11/15/2009 08/20/2018 Overview (11/20/2009): Genotype 1a Chronic hepatitis C 09/21/2009 08/20/20 18 documented as of this encounter (statuses as of 12/01/2024) Immunizations Name Administration Dates Next Due TDAP, [...] Description 12/28/2024 3:00 PM EDT Office Visit [address] [place] [phone] Casie Liang MD [address] [place] [address] 01/03/2025 8:30 AM EDT Appointment Interventional Radiology [facility] [place] [facility] 1st [address] [place] [address] 01/14/2025 8:30 AM EDT Appointment Interventional Radiology [facility] [place] [facility] 1st [address] [place] [address] 02/25/2025 11:00 AM EDT Office Visit [facility] [address] [place] [phone] Jay Gonzales MD [address] [place] [phone] Scheduled Procedures Name Priority Associated Diagnoses [...] 2024 *BASELINE EKG FOR HTN 11/14/2024 GFR 11/30/2025 11/30/2024, 12/2 12/2023, 08/23/2024, Additional [...] Procedure Name Priority Date/Time Associated Diagnosis Comments REGIONAL PARASITE ANTIGEN SCREEN Routine 11/30/2024 4:52 PM EST Diarrhea, unspecified type FECAL LACTOFERRIN, EIA Routine 11/30/2024 4:52 PM EST Diarrhea, unspecified type CLOSTRIDIUM DIFFICILE, PCR Routine 11/30/2024 4:52 PM EST Diarrhea, unspecified type documented in this encounter Results * REGIONAL PARASITE ANTIGEN SCREEN (11/30/2024 4:52 PM EST) Cryptosporidium Antigen Result Negative Negative 12/01/2024 12:19 AM EST LABORATORY [facility] Comment:Negative for Cryptos poridium Antigen. Giardia Antigen Result Negative Negative 12/01/2024 12:19 AM EST LAB[facility] [place] Comment:Negative for Giardia Specific Antigen. Stool Stool specimen / Unknown Non-blood Collection / Unknown 11/30/2024 4:52 PM EST 11/30/2024 4:52 PM EST us Jay Gonzales MD LAB MICRO - GENERAL ORDERABLES Final Result LAB[facility] [address] [place] [address] * (ABNORMAL) FECAL LACTOFERRIN, EIA (11/30/2024 4:52 PM EST) Fecal Lactoferrin Result Positive( A) Negative 12/01/2024 12:17 AM EST [facility] Stool Stool specimen / Unknown Non-blood Collection / Unknown 11/30/2024 4:52 PM EST 11/30/2024 4:52 PM EST Jay Gonzales MD LAB MICRO - GENERAL ORDERABLES Final Result Performing Organization Address [facility] de Phone Number LABORATORY [facility] [address] [place] [address] * (ABNORMAL) CLOSTRIDIUM DIFFICILE, PCR (11/30/2024 4:52 PM EST) Stool Consistency Semi-liquid 11/30/2024 11:49 PM EST [facility] Clostridium difficile Result Positive for C. difficile toxin B gene DNA by PCR (Amplified Probe). Presumptive negative for C. difficile 027-NAP1-B1 strain by PCR (Amplified Probe).(A) Negative 11/30/2024 11:49 PM EST LAB[facility]ORY [facility] Stool Stool specimen / Unknown Non-blood Collection / Unknown 11/30/2024 4:52 PM EST 11/30/2024 4:52 PM EST Jay Gonzales MD LAB MICRO - GENERAL ORDERABLES Final Result Performing Organization Address [facility] de Phone Number LABORATORY [address] [address] documented in this encounter Visit Diagnoses Diagnosis Diarrhea, unspecified type documented in this encounter Additional Health Concerns Infection Onset Date Last Indicated Resolved Time C. difficile Rule-Out 11/30/2024 11/30/20242024 11:49 PM EST documented as of this encounter Care Teams Environmental Designer Relationship Specialty Start Date End Date Jay Gonzales MD [address] [place] [phone] PCP - General Family Medicine 09/13/22 documented as of this encounter
--- OUTSIDE RECORDS SUMMARY | 2025-02-12 16:16 | External Medical Summary | Summary of Care ---
Author Name Unknown Organization [facility] Address [address] [facility] [place] [address] Phone [phone] Care Team Providers Care Child Psychologist Name Role Phone Jay Gonzales MD Primary Care Provi syl Reason for Visit * Reason Onset Date Comments Appointment 12/13/2024 Encounter Details Date Type Department Care Team (Late st Contact Info) Description 12/13/2024 Telephone Hematology/Oncology Treatment, [place] [address] [place] [phone] Tunde Plunkett MD [address] [place] [address] Appointment Allergies No known active allergiesdocumented as [...] NOT CUT, CRUSH OR CHEW (TAKE WITH [id number] DAILY) 90 Capsule 1 5 Active tiZANidine [...] Telephone Encounter - Gaby Urena OSA - 12/15/2024 1:06 PM EST Called tried to explain the message below... the patient was on the call at the start and then It changed over to the and patient. He didn't understand why they needed to come again. Again told them the message below that I was togo over future plans and to get things ready for the next steps... The did NOT want to schedule anything sooner than 02/02- they were offered 01/13 and apts sooner in January * Telephone Encounter - Samantha Strange RN - 12/15/2024 12:28 PM EST Please call patients to let him know we are just scheduling an office visit at this time sothat they can touch base with Dr Plunkett- Dr Plunkett will discuss the future plan of care at that appointment. Ok for this to be in a few weeks per their preference. * Telephone Encounter - Charo Jo OSA - 12/15/2024 11:04 AM EST Patients calling about his wifes chemo he said she prob wont be able to start the chemo till January. It was his understand that they can't start the chemo until after radiation. Please call patient back * Telephone Encounter - Mulugeta Lee OSA [...] pool: Now have some more information from [facility] interventional radiologist regarding liver directed [...] 12/28/2024 3:00 PM EDT Office Visit [address] [phone] Casie Liang MD [address] [place] [address] 01/03/2025 8:30 AM EDT Appointment Interventional Radiology [facility] [place] 1[address] Floor [address] [place] [address] 01/14/2025 8:30 AM EDT Appointment Interventional Radiology [facility] [place] 1[address] Floor [address] [place] [address] 02/02/2025 1:30 PM EDT Office Visit Hematology/Oncology [facility] [place] [address] [place] [phone] Tunde Plunkett MD [address] [place] [address] 02/25/2025 11:00 AM EDT Office Visit Family [facility] [address] [place] [phone] Jay Gonzales MD [address] [place] [phone] Scheduled Procedures Name Priority Associated Diagnoses [...] documented as of this encounter Care Teams Child Psychologist Relationship Specialty Start Date End Date Jay Gonzales MD [address] [place] [phone] PCP - General Family Medicine 09/13/22 documented as of this encounter
--- OUTSIDE RECORDS SUMMARY | 2025-02-12 16:16 | External Medical Summary | Summary of Care ---
Author Name Unknown Organization [facility] Address [address] [place] [address] Phone [phone] Care Team Providers Care Business Law Instructor Name Role Phone Jay Gonzales MD Primary Care Provi [facility] Encounter Details Date Type Department Care Team ([facility] Contact Info) Description 12/01/2024 Telephone Family Practice [facility] [address] [place] [address] Jay Gonzales MD [address] [place] [phone] Allergies No known active allergiesdocumented as of this encounter (statuses as of 12/02/2024) Medications Multiple Vitamins-Minera ls (CENTRUM ADULTS) TABS Take by mouth daily. Active Fluticasone Propionate 50 MCG/ACT Nasal Suspension (Flonase)Indica tions:Allergic rhinitis due to pollen, unspecified seasonality USE 2 SPRAYS EACH NOSTRIL EVERY 12 HRS X 2 WKS, THEN 1 SPRAY EVERY 12 HRS AFTER SALINE RINSE 48 mL 1 04/25/20 21 Active Additional Information Patient taking differently:, USE 2 SPRAYS EACH NOSTRIL EVERY 12 HRS X 2 WKS, THEN 1 SPRAY EVERY 12 HRS AFTER SALINE RINSE,Indications: as needed, Reported on 11/30/2024 Benzonatate 100 MG Oral Capsule (Tessarah Naylor) Take 1 Capsule by mouth 3 times a day as needed for Cough. Do not cut, crush, or chew. 50 Capsule 1 10/14/20 22 Active Additional Information Patient not taking.Reported on 11/30/2024 QUEtiapine Fumarate 25 MG Oral Tablet (SEROquel)Indic ations:Mood disorder (HCC) Take 1 Tablet by mouth at bedtime. 90 Tablet 3 08/20/20 24 Active Ventolin HFA 108 (90 Base) MCG/ACT Inhalation Aerosol SolutionIndicat ions:Wheezing,A cute cough Inhale 2 Puffs by mouth every 4 hours as needed for Wheezing. 6.7 g 3 08/20/20 24 Active Carvedilol 6.25 MG Oral Tablet (Coreg)Indicati [...] NOT CUT, CRUSH OR CHEW (TAKE WITH [id number] DAILY) 90 Capsule 1 11/15/19 25 Active tiZANidine HCl 2 MG Oral Tablet (Zanaflex)Indic ations:Chronic right shoulder pain Take 1 Tablet by mouth at bedtime as needed for Muscle spasms. 30 Tablet 11/30/19 25 Active Gabapentin 100 MG Oral Capsule (Neurontin) Take 1 Capsule by mouth in the morning and 1 Capsule at noon and 1 Capsule before bedtime. Slowly increase the dose over 3 weeks--Start with one capsule in the evening for the first week. Add the afternoon dose on week 2 and the morning dose on week 3.. 90 Capsule 5 11/30/19 25 Active Vancomycin HCl 125 MG Oral Capsule (Vancocin)Indic ations:Clostrid ium difficile enteritis Take 1 Capsule by mouth every 6 hours for 14 days. 56 Capsule 12/01/19 25 025 Active Vancomycin HCl 125 MG Oral Capsule (Vancocin)Indic ations:Clostrid ium difficile enteritis Take 1 Capsule by mouth every 6 hours for 10 days. 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) 08/20/2024 Major depressive disorder with single episode HTN, goal below 130/80 04/03/2023 Wears dentures 04/18/2021 Thrombocytopenia 08/18/2020 Portal hypertension 06/09/2019 Mood disorder 02/16/2018 Other cirrhosis of liver 09/14/2009 Menopause 09/11/2009 Overview (09/11/2009): Age 46 Generalized anxiety disorder 07/03/2009 documented as of this encounter (statuses as of 12/02/2024) Resolved Problems Problem Noted Date Diagnosed Date Resolved Date OTHER 11/15/2009 08/20/2018 Overview (11/20/2009): Genotype 1a Chronic hepatitis C 09/21/2009 08/20/20 18 documented as of this encounter (statuses as of 12/02/2024) Immunizations Name Administration Dates Next Due TDAP, [...] Telephone Encounter - Jay Gonzales MD - 12/01/2024 5:46 PM EST Spoke to patient re; results CDIFF colitis. 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 Copying heme/onc as fyi documented in this encounter Plan of Treatment Upcoming Encounters Date Type Department Care Team ([facility] Contact Info) Description 12/28/2024 3:00 PM EDT Office Visit [facility] [address] [place] [phone] Casie Liang MD [address] [place] [address] 01/03/2025 8:30 AM EDT Appointment Interventional Radiology [facility] [place] 1[address] [place] [phone] 01/14/2025 8:30 AM EDT Appointment Interventional Radiology [facility] [place] 1[address] [place] [address] 02/25/2025 11:00 AM EDT Office Visit [address] [phone] Jay Gonzales MD [address] [place] [phone] Scheduled Procedures Name Priority Associated Diagnoses Date/Ti [...] as of this encounter Visit Diagnoses Diagnosis Clostridium difficile enteritis- Primary Intestinal infection due to clostridium difficile documented in this encounter Additional Health Concerns Infection Onset Date Last Indicated Resolved Time C. difficile 11/30/2024 11/30/2024 documented as of this encounter Care Teams Business Law Instructor Relationship Specialty Start Date End Date Jay Gonzales MD [address] [place] [phone] PCP - General Family Medicine 09/13/22 documented as of this encounter
--- OUTSIDE RECORDS SUMMARY | 2025-02-12 16:16 | External Medical Summary | Summary of Care ---
Author Name Unknown Organization [facility] Address [address] [facility] [place] [address] Phone [phone] Care Team Providers Care Diplomatic Interpreter/Translator Name Role Phone Jay Gonzales MD Primary Care Provi syl Reason for Visit * Reason Onset Date Comments Appointment 12/13/2024 Encounter Details Date Type Department Care Team (Late st Contact Info) Description 12/13/2024 Telephone Hematology/Oncology Treatment, [place] [address] [place] [phone] Tunde Plunkett MD 200 [place] [address] Appointment Allergies No known active allergiesdocumented as [...] NOT CUT, CRUSH OR CHEW (TAKE WITH [id number] DAILY) 90 Capsule 1 5 Active tiZANidine [...] 6 hours for 14 days. 56 Capsule 02 025 Discontin ued(Refil l) documented as of [...] Miscellaneous Notes * Telephone Encounter - Gaby Urena, TORI - 12/15/2024 1:06 PM EST Called tried [...] pool: Now have some more information from [facility] interventional radiologist regarding liver directed treatment [...] Description 12/28/2024 3:00 PM EDT Office Visit [address] [phone] Casie Liang MD [address] [place] [address] 01/03/2025 8:30 AM EDT Appointment [place] [facility] 1[address] [facility] [address] [place] [address] 01/14/2025 8:30 AM EDT Appointment [place]ventional [place] [facility] 1[address] [facility] [address] [place] [address] 02/02/2025 1:30 PM EDT Office Visit Hematology/Oncology Herman Loza [place] 200 [facility] [place] [phone] Tunde Plunkett MD [address] [place] [address] 02/25/2025 11:00 AM EDT Office Visit Family [facility] [address] [place] [address] Jay Gonzales MD [address] [place] [phone] Scheduled Procedures Name Priority Associated Diagnoses [...] documented as of this encounter Care Teams Diplomatic Interpreter/Translator Relationship Specialty Start Date End Date Jay Gonzales MD [address] [place] [address] [place] [phone] PCP - General Family Medicine 09/13/22 documented as of this encounter
--- OUTSIDE RECORDS SUMMARY | 2025-02-12 16:16 | External Medical Summary | Summary of Care ---
Author Name Unknown Organization [facility] Address [address] [place] [address] Phone [phone] Care Team Providers Care Wall Cleaner Name Role Phone Jay Gonzales MD Primary Care Provi syl Reason for Referral * Medication Prior Authorization - Closed Specialty Diagnoses / Procedures Referred By Vaibhav t Referred To Contact Diagnoses Clostridium difficile enteritis Jay Gonzales MD [address] [place] [phone] Phone: tel: fax: Referral ID Status Reason Start Date Expiration Date Visits Re quested Visits Authorized [id number] Closed [phone] Reason for Visit * Reason Onset Date Comments Advice 12/13/2024 Status Check 12/15/2024 Encounter Details Date Type Department Care Team ([facility] Contact Info) Description 12/13/2024 Telephone Family Practice [address] [phone] Jay Gonzales MD [address] [place] [phone] Advice; Status Check Allergies No known [...] NOT CUT, CRUSH OR CHEW (TAKE WITH [id number] DAILY) 90 Capsule 1 5 Active tiZANidine [...] days * Telephone Encounter - Cj Grissom, family and divorce legal assistant - 12/15/2024 11:45 AM EST Pt's requesting refill for antibiotic stating first round did not work. Caller stating insurance will also require a prior authorization. Please see separate encounter for pa. Did you pend patient's preferred pharmacy and medication before forwarding?yes Pharmacy: [facility] [id number] [address] Pending Prescriptions: Disp Refills Vancomycin [...] Upcoming Encounters Date Type Department Care Team ([facility] st Contact Info) Description 12/28/2024 3:00 PM EDT Office Visit [address] [phone] Casie Liang MD [address] [place] [address] 01/03/2025 8:30 AM EDT Appointment Interventional Radiology [facility], [facility] 1[address] [place] [address] 01/14/2025 8:30 AM EDT Appointment Interventional Radiology [facility], [facility] 1[address] [place] [address] 02/02/2025 1:30 PM EDT Office Visit Hematology/Oncology [facility] 200 [facility] [place] [address] Tunde Plunkett MD 200 [place] [address] 02/25/2025 11:00 AM EDT Office Visit [address] [phone] Jay Gonzales MD [address] [place] [phone] Scheduled Procedures Name Priority Associated Diagnoses Date/Ti [...] documented as of this encounter Care Teams Wall Cleaner Relationship Specialty Start Date End Date Jay Gonzales MD [address] [place] [phone] PCP - General Family Medicine 09/13/22 documented as of this encounter
--- OUTSIDE RECORDS SUMMARY | 2025-02-12 16:16 | External Medical Summary | Summary of Care ---
Author Name Unknown Organization [facility] Address [address] [facility] [place] [address] Phone [phone] Care Team Providers Care Hr Coordinator Name Role Phone Jay Gonzales MD Primary Care Provi syl Reason for Visit * Reason Onset Date Comments Appointment 12/13/2024 Encounter Details Date Type Department Care Team (Late st Contact Info) Description 12/13/2024 Telephone Hematology/Oncology Treatment, [place] 200 [place] [phone] Tunde Plunkett MD 200 [place] [address] Appointment Allergies No known active allergiesdocumented as [...] NOT CUT, CRUSH OR CHEW (TAKE WITH [id number] DAILY) 90 Capsule 1 5 Active tiZANidine [...] pool: Now have some more information from [facility] interventional radiologist regarding liver directed treatment [...] 12/28/2024 3:00 PM EDT Office Visit [address] [phone] Casie Liang MD [address] [place] [address] 01/03/2025 8:30 AM EDT Appointment [place]ventional [place]iology [facility] [place] [facility] 1[address] [facility] [address] [place] [address] 01/14/2025 8:30 AM EDT Appointment Interventional Radiology [facility] [place] [facility] 1[address] [place] [address] 02/02/2025 1:30 PM EDT Office Visit Hematology/Oncology Herman Loza [place] 200 [facility] [place] [phone] Tunde Plunkett MD [address] [place] [address] 02/25/2025 11:00 AM EDT Office Visit Family [facility] [address] [place] [phone] Jay Gonzales MD [address] [place] [phone] Scheduled Procedures Name Priority Associated Diagnoses [...] documented as of this encounter Care Teams Hr Coordinator Relationship Specialty Start Date End Date Jay Gonzales MD [address] [place] [address] [place] [phone] PCP - General Family Medicine 09/13/22 documented as of this encounter
--- OUTSIDE RECORDS SUMMARY | 2025-02-12 16:16 | External Medical Summary | Summary of Care ---
Author Name Unknown Organization [facility] Address [address] [facility] [address] Phone [phone] Care Team Providers Care Gamma Facilities Operator Name Role Phone Jay Gonzales MD Primary Care Provi syl Reason for Visit * Reason Onset Date Comments Appointment 12/13/2024 Encounter Details Date Type Department Care Team (Late st Contact Info) Description 12/13/2024 Telephone Hematology/Oncology Treatment, [place] [address] [place] [phone] Tunde Plunkett MD 200 [place] [address] Appointment Allergies No known active allergiesdocumented as of this encounter (statuses as of 12/13/2024) Medications Multiple Vitamins-Mineral s (CENTRUM ADULTS) TABS [...] NOT CUT, CRUSH OR CHEW (TAKE WITH [id number] DAILY) 90 Capsule 1 5 Active tiZANidine [...] as of this encounter (statuses as of 12/13/2024) Active Problems Problem Noted Date Diagnosed Date 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) 08/20/2024 Major depressive disorder with single episode HTN, goal below 130/80 04/03/2023 Wears dentures 04/18/2021 Thrombocytopenia 08/18/2020 Portal hypertension 06/09/2019 Mood disorder 02/16/2018 Other cirrhosis of liver 09/14/2009 Menopause 09/11/2009 Overview (09/11/2009): Age 46 Generalized anxiety disorder 07/03/2009 documented as of this encounter (statuses as of 12/13/2024) Resolved Problems Problem Noted Date Diagnosed Date Resolved Date OTHER 11/15/2009 08/20/2018 Overview (11/20/2009): Genotype 1a Chronic hepatitis C 09/21/2009 08/20/20 18 documented as of this encounter (statuses as of 12/13/2024) Immunizations Name Administration Dates Next Due TDAP, [...] pool: Now have some more information from [facility] interventional radiologist regarding liver directed treatment [...] Upcoming Encounters Date Type Department Care Team ([facility] Contact Info) Description 12/28/2024 3:00 PM EDT Office Visit [address] [phone] Casie Liang MD [address] [place] [address] 01/03/2025 8:30 AM EDT Appointment Interventional Radiology [facility] [place] 1st [address] [place] [address] 01/14/2025 8:30 AM EDT Appointment Interventional Radiology [facility] [place] 1st [address] [place] [address] 02/25/2025 11:00 AM EDT Office Visit Family Practice [address] [phone] Jay Gonzales MD [address] [place] [phone] Scheduled Procedures Name Priority Associated Diagnoses [...] documented as of this encounter Care Teams Gamma Facilities Operator Relationship Specialty Start Date End Date Jay Gonzales MD [address] [place] [phone] PCP - General Family Medicine 09/13/22 documented as of this encounter
--- OUTSIDE RECORDS SUMMARY | 2025-02-12 16:16 | External Medical Summary | Summary of Care ---
Author Name Unknown Organization [facility] Address [address] [facility] [place] [place] [address] Phone [phone] Care Team Providers Care Silver Cleaner Name Role Phone Jay Gonzales MD Primary Care Provi syl Reason for Visit * Reason Onset Date Comments Medication Pre-auth 12/15/2024 Vancomycin H Cl 125 MG Oral Capsule (Vancocin) Encounter Details Date Type Department Care Team ([facility] st Contact Info) Description 12/15/2024 Telephone Family [address] [phone] Jay Gonzales MD [address] [place] [phone] Medication Pre-auth (Vancomycin HCl 125 MG... 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) 08/20/2024 Major depressive disorder with single episode HTN, goal below 130/80 04/03/2023 Wears dentures 04/18/2021 Thrombocytopenia 08/18/2020 Portal hypertension 06/09/2019 Mood disorder 02/16/2018 Other cirrhosis of liver 09/14/2009 Menopause 09/11/2009 Overview (09/11/2009): Age 46 Generalized anxiety disorder 07/03/2009 documented as of this encounter (statuses as of 12/16/2024) Resolved Problems Problem Noted Date Diagnosed Date Resolved Date OTHER 11/15/2009 08/20/2018 Overview (11/20/2009): Genotype 1a Chronic hepatitis C 09/21/2009 08/20/20 18 documented as of this encounter (statuses as of 12/16/2024) Immunizations Name Administration Dates Next Due TDAP, [...] encounter Miscellaneous Notes * Telephone Encounter - Pritesh Jeff CPhT - 12/16/2024 12:22 PM EST Submitted information in previous note via CMM (Owusu: [id number]).. Awaiting payer response. We will follow-up with insurance starting 12/17. Per [facility] request, if no decision is received from insurance by 12/21, we will route back to the [facility] after clarifying with the pharmacy that the claim is still not processing. Thank you, Yuniel Jeff ([facility]) Cellar Packer III [facility] ([facility]) 12/16/2024, 12:22 PM * Telephone Encounter - Mendy Naqvi [facility] - 12/16/2024 9:39 AM EST Please submit PA. Include the following documentation: 11/30/24 OV note 12/01/24 TE 11/30/24 Clostridium Difficile lab 12/13/24 TE Please copy and paste the following information into PA form: Documented C. Diff, with persistent watery diarrhea after 14 days of treatment. Need to extend treatment for additional 14 days, while waiting to see gastroenterology. Patient condition is also complicated by Hepatocellular carcinoma and liver cirrhosis. What other drugs is there medical record documentation of therapeutic failure on, intolerance to, or contraindication to for this condition? N/A Kulwant as urgent: No Diagnosis/ICD-10 Code(s): A04.72 If instantaneous decision is not received after submitting prior auth, please continue to follow upon this and route back to the [facility] pool if no decision is made by the insurance by 12/21, after clarifying with the pharmacy that the claim is still not processing. If PA is denied, please also route back to [facility] pool. Thanks, Mendy Naqvi, PharmD Clinical Pharmacist [facility] ([facility]) [phone] 12/16/2024 9:39 AM * Telephone Encounter - Pritesh Jeff CPhT - 12/16/2024 8:31 AM EST This is a new PA request. Upon review of this prior authorization request, I verified this request is appropriate. This is prescribed by a department for which [facility] is authorized to review prior authorizations This is not a duplicate encounter regarding the same prior authorization The patient is planning to use insurance The insurance information listed in previous note is correct and the plan that is requiring prior authorization The insurance does not cover either brand or generic forms of this script as written without prior authorization The insurance does not cover any NDCs of this script without prior authorization RX Estimate tool is unable to determine coverage of requested script Of note, there is nothing currently pending in [facility] for this request. Please advise how to proceed. Thank you, Yuniel Jeff ([facility]) Cellar Packer III [facility] ([facility]) 12/16/2024, 8:31 AM * Telephone Encounter - Cj Grissom PHARM Tech - 12/15/2024 11:52 AM EST Patient calling to inform doctor that the patient's insurance will not pay for this medication without a completed prior authorization. Did confirm this information with the pharmacy. Pt's current insurance information is as follows: Patient name: Neha Marks ID number: [id number] BIN number: [id number] PCN number: [id number] Group number: [id number] Subscriber name: Neha Marks Primary or Secondary Insurance:Primary Medication: Vancomycin HCl 125 MG Oral Capsule (Vancocin) [place] for Request[place] Pharmacy and phone number: [id number] [address] [id number] Rx plan and phone number: [facility] [phone] Is this a new medication for the patient? No. How did the patient obtain the medication on the lastfill? It was covered last time on this same insurance. What alternative medications does the pharmacy have in stock?: n/a Thank you, Cj Grissom Bench Machine Operator I [facility] ([facility]) 12/15/2024,11:53 AM documented in this encounter Plan of Treatment Upcoming Encounters Date Type Department Care Team ([facility] Contact Info) Description 12/28/2024 3:00 PM EDT Office Visit [address] [phone] Casie Liang MD [address] [place] [address] 01/03/2025 8:30 AM EDT Appointment Interventional Radiology [facility] [place] [address] [place] [address] 01/14/2025 8:30 AM EDT Appointment Interventional Radiology [facility] [place] [address] [place] [address] 02/02/2025 1:30 PM EDT Office Visit [facility]ology[facility] 200 [facility] [place] [phone] Tunde Plunkett MD 200 [place] [address] 02/25/2025 11:00 AM EDT Office Visit Family Practice [facility] [address] [place] [phone] Jay Gonzales MD [address] [place] [phone] Scheduled Procedures Name Priority Associated Diagnoses Date/Ti [...] 2024 DXA Scan 2024 GFR 11/30/2025 11/30/2024, 12/2 12/2023, 08/23/2024, Additional [...] this encounter Visit Diagnoses Diagnosis Clostridium difficile enteritis Intestinal infection due to clostridium difficile documented in this encounter Additional Health Concerns Infection Onset Date Last Indicated Resolved Time C. difficile 11/30/2024 11/30/2024 documented as of this encounter Care Teams Silver Cleaner Relationship Specialty Start Date End Date Jay Gonzales MD [address] [place] [phone] PCP - General Family Medicine 09/13/22 documented as of this encounter
--- OUTSIDE RECORDS SUMMARY | 2025-02-12 16:16 | External Medical Summary | Summary of Care ---
Author Name Unknown Organization [facility] Address [address] [facility] [place] [address] Phone [phone] Care Team Providers Care Solidworks Drafter Name Role Phone Jay Gonzales MD Primary Care Provi syl Reason for Visit * Reason Comments eRx-Medication Refill Encounter Details Date Type Department Care Team ([facility] Contact Info) Description 12/27/2024 Refill Family Practice [address] [phone] Jay Gonzales MD [address] [place] [phone] Chronic right shoulder pain Allergies No known active allergiesdocumented as of this encounter (statuses as of 12/28/2024) Medications Multiple Vitamins-Minera ls (CENTRUM ADULTS) TABS [...] NOT CUT, CRUSH OR CHEW (TAKE WITH 054=[id number] DAILY) 90 Capsule 1 11/15/19 25 Active [...] every 6 hours. 56 Capsule 12/15/19 25 Active Fluticasone Propionate 50 MCG/ACT Nasal Suspension (Flonase)Indica tions:Allergic rhinitis due to pollen, unspecified seasonality USE 2 SPRAYS EACH NOSTRIL EVERY 12 HRS X 2 WKS, THEN 1 SPRAY EVERY 12 HRS AFTER SALINE RINSE 48 mL 1 04/25/20 21 025 Discontinued(Me dication List Clean Up) Benzonatate 100 MG Oral Capsule (Tessalon Perles) Take 1 Capsule by mouth 3 times a day as needed for Cough. Do not cut, crush, or chew. 50 Capsule 1 10/14/20 22 025 Discontinued(Me dication List Clean Up) Ventolin HFA 108 (90 Base) MCG/ACT Inhalation Aerosol SolutionIndicat ions:Wheezing,A cute cough Inhale 2 Puffs by mouth every 4 hours as needed for Wheezing. 6.7 g 3 08/20/20 24 025 Discontinued(Re fill) tiZANidine HCl 2 MG Oral Tablet (Zanaflex)Indic ations:Chronic right shoulder pain Take 1 Tablet by mouth at bedtime as needed for Muscle spasms. 30 Tablet 11/30/19 25 025 Discontinued tiZANidine HCl 2 MG Oral Tablet (Zanaflex)Indic ations:Chronic right shoulder pain TAKE 1 TABLET BY MOUTH DAILY AT BEDTIME NEEDED FOR MUSCLE SPASMS. 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) 08/20/2024 Major depressive disorder with single episode HTN, goal below 130/80 04/03/2023 Wears dentures 04/18/2021 Thrombocytopenia 08/18/2020 Portal hypertension 06/09/2019 Mood disorder 02/16/2018 Other cirrhosis of liver 09/14/2009 Menopause 09/11/2009 Overview (09/11/2009): Age 46 Generalized anxiety disorder 07/03/2009 documented as of this encounter (statuses as of 12/28/2024) Resolved Problems Problem Noted Date Diagnosed Date Resolved Date OTHER 11/15/2009 08/20/2018 Overview (11/20/2009): Genotype 1a Chronic hepatitis C 09/21/2009 08/20/20 18 documented as of this encounter (statuses as of 12/28/2024) Immunizations Name Administration Dates Next Due TDAP, [...] encounter Miscellaneous Notes * Telephone Encounter - Joe Sweet PA-C - 12/28/2024 3:09 PM EDT Signed Prescriptions: Disp Refills tiZANidine HCl 2 MG Oral Tablet (Zanaflex) 30 Tab*0 Sig: TAKE 1 TABLET BY MOUTH DAILY AT BEDTIME NEEDED FOR MUSCLE SPASMS. Authorizing Provider: JOE SWEET * Telephone Encounter - Jeni Jasso LPN - 12/27/2024 9:48 AM EDTPending Prescriptions: Disp Refills tiZANidine HCl 2 MG Oral Tablet [Pharmacy *30 Tab*0 Sig: TAKE 1 TABLET BY MOUTH DAILY AT BEDTIME NEEDED FOR MUSCLE SPASMS. * Telephone Encounter - Sarah Ashford - 12/27/2024 4:09 AM EDTPending Prescriptions: Disp Refills tiZANidine HCl 2 MG Oral Tablet [Pharmacy *30 Tab*0 Sig: TAKE 1TABLET BY MOUTH DAILY AT BEDTIME NEEDED FOR MUSCLE SPASMS. documented in this encounter Plan of Treatment Upcoming Encounters Date Type Department Care Team (Late st Contact Info) Description 12/30/2024 2:00 PM EDT [facility] [address] [place] [phone] Sg Storm PA-C [address] [place] [address] 01/03/2025 8:30 AM EDT Appointment Interventional Radiology [facility] [facility], [facility] [address] [place] [phone] 01/14/2025 8:30 AM EDT Appointment Interventional Radiology [facility] [facility], [facility] [address] [place] [address] 02/02/2025 1:30 PM EDT Office Visit Hematology/Oncology [facility] [address] [place] [phone] Tunde Plunkett MD 200 [place] [address] 02/25/2025 11:00 AM EDT Office Visit Family Practice [facility] [address] [place] [address] Jay Gonzales MD [address] [place] [phone] Scheduled Procedures Name Priority Associated Diagnoses [...] as of this encounter Visit Diagnoses Diagnosis Chronic right shoulder pain Pain in joint, shoulder region documented in this encounter Additional Health Concerns Infection Onset Date Last Indicated Resolved Time C. difficile 11/30/2024 11/30/2024 documented as of this encounter Care Teams Solidworks Drafter Relationship Specialty Start Date End Date Jay Gonzales MD [address] [place] [phone] PCP - General Family Medicine 09/13/22 documented as of this encounter
--- OUTSIDE RECORDS SUMMARY | 2025-02-12 16:16 | External Medical Summary | Summary of Care ---
Author Name Unknown Organization [facility] Address [address] [facility] [place] [address] Phone [phone] Care Team Providers Care Magnetic Tape Winder Name Role Phone Jay Gonzales MD Primary Care Provi syl Reason for Visit * Reason Onset Date Comments Appointment 12/13/2024 Encounter Details Date Type Department Care Team (Late st Contact Info) Description 12/13/2024 Telephone Hematology/Oncology Treatment, [place] [address] [place] [phone] Tunde Plunkett MD [address] [place] [address] Appointment Allergies No known active allergiesdocumented as of this encounter (statuses as of 12/16/2024) Medications Multiple Vitamins-Minera ls (CENTRUM ADULTS) TABS [...] NOT CUT, CRUSH OR CHEW (TAKE WITH [id number] DAILY) 90 Capsule 1 5 Active tiZANidine [...] pool: Now have some more information from [facility] interventional radiologist regarding liver directed [...] Description 12/28/2024 3:00 PM EDT Office Visit [address] [phone] Casie Liang MD [address] [place] [address] 01/03/2025 8:30 AM EDT Appointment Interventional Radiology [facility], [facility] 1[address] [place] [address] 01/14/2025 8:30 AM EDT Appointment Interventional Radiology [facility], [facility] 1[address] [place] [address] 02/02/2025 1:30 PM EDT Office Visit Hematology/Oncology Herman Loza [place] [address] [facility] [place] [phone] Tunde Plunkett MD [address] [place] [address] 02/25/2025 11:00 AM EDT Office Visit Family [facility] [address] [place] [phone] Jay Gonzales MD [address] [place] [phone] Scheduled Procedures Name Priority Associated Diagnoses [...] documented as of this encounter Care Teams Magnetic Tape Winder Relationship Specialty Start Date End Date Jay Gonzales MD [address] [place] [address] [place] [phone] PCP - General Family Medicine 09/13/22 documented as of this encounter
--- OUTSIDE RECORDS SUMMARY | 2025-02-12 16:16 | External Medical Summary | Summary of Care ---
Author Name Unknown Organization [facility] Address [address] [facility] [address] Phone [phone] Care Team Providers Care Lens Polisher Name Role Phone Jay Gonzales MD Primary Care Provi syl Reason for Visit * Reason Onset Date Comments Appointment 12/13/2024 Encounter Details Date Type Department Care Team (Late st Contact Info) Description 12/13/2024 Telephone Hematology/Oncology Treatment, [place] [address] [place] [phone] Tunde Plunkett MD 200 [place] [address] Appointment Allergies No known active allergiesdocumented as [...] NOT CUT, CRUSH OR CHEW (TAKE WITH [id number] DAILY) 90 Capsule 1 5 Active tiZANidine [...] pool: Now have some more information from [facility] interventional radiologist regarding liver directed treatment that [...] Encounters Date Type Department Care Team ([facility] Contact Info) Description 12/28/2024 3:00 PM EDT Office Visit [address] [phone] Casie Liang MD [address] [place] [address] 01/03/2025 8:30 AM EDT Appointment Interventional Radiology [facility], [facility] 1[address] [place] [address] 01/14/2025 8:30 AM EDT Appointment Interventional Radiology [facility], [facility] 1st [address] [place] [address] 02/25/2025 11:00 AM EDT Office Visit Family Practice [address] [phone] Jay Gonzales MD [address] [place] [phone] Scheduled Procedures Name Priority Associated Diagnoses [...] documented as of this encounter Care Teams Lens Polisher Relationship Specialty Start Date End Date Jay Gonzales MD [address] [place] [phone] PCP - General Family Medicine 09/13/22 documented as of this encounter
--- OUTSIDE RECORDS SUMMARY | 2025-02-12 16:16 | External Medical Summary | Summary of Care ---
Author Name Unknown Organization [facility] Address [address] [facility] [address] Phone [phone] Care Team Providers Care Recovery Coach Name Role Phone Jay Gonzales MD Primary Care Provi syl Reason for Visit * Reason Onset Date Comments Medication Pre-auth 12/15/2024 Vancomycin H Cl 125 MG Oral Capsule (Vancocin) Encounter Details Date Type Department Care Team ([facility] st Contact Info) Description 12/15/2024 Telephone Family [address] [phone] Jay Gonzales MD [address] [place] [phone] Medication Pre-auth (Vancomycin HCl 125 MG... 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) 08/20/2024 Major depressive disorder with single episode HTN, goal below 130/80 04/03/2023 Wears dentures 04/18/2021 Thrombocytopenia 08/18/2020 Portal hypertension 06/09/2019 Mood disorder 02/16/2018 Other cirrhosis of liver 09/14/2009 Menopause 09/11/2009 Overview (09/11/2009): Age 46 Generalized anxiety disorder 07/03/2009 documented as of this encounter (statuses as of 12/17/2024) Resolved Problems Problem Noted Date Diagnosed Date Resolved Date OTHER 11/15/2009 08/20/2018 Overview (11/20/2009): Genotype 1a Chronic hepatitis C 09/21/2009 08/20/20 18 documented as of this encounter (statuses as of 12/17/2024) Immunizations Name Administration Dates Next Due TDAP, [...] encounter Miscellaneous Notes * Telephone Encounter - Nita Larios, spring floor service worker - 12/17/2024 11:12 AM EST Images from the original note were not included. Checked status of prior authorization for Vancomycin HCl 125MG capsules through [facility]. Patient and pharmacy notified of approval. Approved until(if applicable): 10/19/25 Thank you, Nita Larios, [facility] Metal Sorter III [facility] ([facility] 12/17/2024,11:12 AM * Telephone Encounter - Pritesh Jeff CPhT - 12/16/2024 12:22 PM EST Submitted information in previous note via CMM ([place]: [id number]).. Awaiting payer response. We will follow-up with insurance starting 12/17. Per [facility] request, if no decision is received from insurance by 12/21, we will route back to the [facility] after clarifying with the pharmacy that the claim is still not processing. Thank you, Yuniel Jeff ([facility]) Metal Sorter III [facility] ([facility]) 12/16/2024, 12:22 PM * Telephone Encounter - Mendy Naqvi [facility] - 12/16/2024 9:39 AM EST Please submit [...] upon this and route back to the [facility] pool if no decision is made by the insurance by 12/21, after clarifying with the pharmacy that the claim is still not processing. If PA is denied, please also route back to [facility] pool. Thanks, Mendy Naqvi, [place] Clinical Pharmacist [facility] ([facility]) [phone] 12/16/2024 9:39 AM * Telephone Encounter - Pritesh Jeff CPhT - 12/16/2024 8:31 AM EST This is a new [place] request. Upon review of this prior authorization request, I verified this request is appropriate. This is prescribed by a department for which [facility] is authorized to review prior authorizations This [...] note, there is nothing currently pending in Center for this request. Please advise how to proceed. Thank you, Yuniel Jeff ([facility]) Metal Sorter III [facility] ([facility]) 12/16/2024, 8:31 AM * Telephone Encounter - Cj Grissom, spring floor service worker - 12/15/2024 11:52 AM EST Patient calling to inform doctor that the patient's insurance will not pay for this medication without a completed prior authorization. Did confirm this information with the pharmacy. Pt's current insurance information is as follows: Patient name: Neha Marks ID number: [id number] BIN number: [id number] PCN number: [id number] Group number: [id number] Subscriber name: Neha Marks Primary or Secondary Insurance:Primary Medication: Vancomycin HCl 125 MG Oral Capsule (Vancocin) Reason for Request: requires pa Pharmacy and phone number: [id number] [address] [phone] Rx plan and phone number: [facility] [phone] Is this a new medication for the patient? No. How did the patient obtain the medication on the lastfill? It was covered last time on this same insurance. What alternative medications does the pharmacy have in stock?: n/a Thank you, Cj Grissom Blood Bank Laboratory Technologist I [facility] ([facility]) 12/15/2024,11:53 AM documented in this encounter Plan of Treatment Upcoming Encounters Date Type Department Care Team ([facility] Contact Info) Description 12/28/2024 3:00 PM EDT Office Visit [address] [phone] Casie Liagn MD [address] [place] [address] 01/03/2025 8:30 AM EDT Appointment Interventional Radiology [facility], [facility] [address] [place] [address] 01/14/2025 8:30 AM EDT Appointment Interventional Radiology [facility], [facility] [address] [place] [address] 02/02/2025 1:30 PM EDT Office Visit Hematology/Oncology [facility] [address] [place] [phone] Tunde Plunkett MD [address] [place] [address] 02/25/2025 11:00 AM EDT Office Visit [address] [phone] Jay Gonzales MD [address] [place] [phone] Scheduled Procedures Name Priority Associated Diagnoses Date/Ti [...] documented as of this encounter Care Teams Recovery Coach Relationship Specialty Start Date End Date Jay Gonzales MD [address] [place] [phone] PCP - General Family Medicine 09/13/22 documented as of this encounter
--- OUTSIDE RECORDS SUMMARY | 2025-02-12 16:17 | External Medical Summary | Summary of Care ---
Author Name Unknown Organization [facility] Address [address] [place] [address] Phone [phone] Care Team Providers Care Finisher Special Stocks Name Role Phone Jay Gonzales MD Primary Care Provi syl Reason for Visit * Precert (Within 24 hrs (call dept; emergent)) - Authorized Specialty Diagnoses / Procedures Referred By Vaibhav roldan Referred To Contact Radiology Diagnoses HCC (hepatocellular carcinoma) (HCC) Procedures CT CHEST W CONTRAST CT CHEST WO CONTRAST Red Marcum, DO [address] [place] [address] Phone: tel: fax: Referral ID Status Reason Start Date Expiration Date V isits Requested Visits Authorized [id number] Authorized 10/08/2024 [id number] Encounter Details Date Type Department Care Team (Latest Contact Info) Description 10/14/2024 12:31 PM EST - 10/14/2024 11:59 PM EST Hospital Encounter Radiology, [address] [phone] Arrived Discharge Disposition: Home - Self Care Allergies No known active allergiesdocumented as of this encounter (statuses as of 10/15/2024) Medications Multiple Vitamins-Mineral s (CENTRUM ADULTS) TABS [...] AFTER SALINE RINSE,Indications: as needed, Reported on 10/10/2022 Benzonatate 100 MG Oral Capsule (Tessalon Perleliu) Take 1 Capsule by mouth 3 times a day as needed for Cough. Do not cut, crush, or chew. 50 Capsule 1 2 Active Venlafaxine HCl ER 75 MG Oral Capsule Extended Release 24 Hour (Effexor XR)Indications:M ood disorder (HCC) TAKE 1 CAPSULE BY MOUTH DAILY. DO NOT CUT, CRUSH OR CHEW (TAKE WITH [id number] DAILY) 90 Capsule 4 Active Venlafaxine HCl ER 150 MG Oral Capsule Extended Release 24 Hour (Effexor XR)Indications:M ood disorder (HCC) TAKE 1 CAPSULE BY MOUTH EVERY DAY DO NOT CUT, CRUSH, OR CHEW 90 Capsule 4 Active QUEtiapine Fumarate 25 MG Oral Tablet [...] evening meals. 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) 08/20/2024 Major depressive disorder with single episode HTN, goal below 130/80 04/03/2023 Wears dentures 04/18/2021 Thrombocytopenia 08/18/2020 Portal hypertension 06/09/2019 Mood disorder 02/16/2018 Other cirrhosis of liver 09/14/2009 Menopause 09/11/2009 Overview (09/11/2009): Age 46 Generalized anxiety disorder 07/03/2009 documented as of this encounter (statuses as of 10/15/2024) Resolved Problems Problem Noted Date Diagnosed Date Resolved Date OTHER 11/15/2009 08/20/2018 Overview (11/20/2009): Genotype 1a Chronic hepatitis C 09/21/2009 08/20/20 18 documented as of this encounter (statuses as of 10/15/2024) Immunizations Name Administration Dates Next Due TDAP, [...] Recorded PHQ Adult Total Score 2 06/25/2022 Utilities Answer Date Recorded Do you have trouble paying y our heating, water, or electric bill? (Adult - for ages 18 years and over) Not on file 04/06/2024 Is your family able to pay t he heat, water, or electric bill? (Household - for ages 0-17 years) Not on file 04/06/2024 Does your family have access to good internet? (Household - for ages 0-17 years) Not on file 04/06/2024 Social Connections Answer Date Recorded How often do you feel lonely or isolated from those around you? (Adult - for ages 18 years and over) Not on file 04/06/2024 Comments No Sex and Gender Information Value Date Recorded Sex Assigned at Female 06/25/2022 12:51 PM EDT Legal Sex Female 7:01 AM EST Gender Identity Female 06/25/2022 12:51 PM EDT Sexual Orientation Straight 06/25/2022 12 :51 PM EDT documented as of this encounter Plan of Treatment Upcoming Encounters Date Type Department Care Team (Late st Contact Info) Description 02/25/2025 11:00 AM EDT Office Visit Family [facility] [address] [place] [address] Jay Gonzales MD [address] [place] [phone] Scheduled Procedures Name Priority Associated Diagnoses [...] shot) (#1) 2024 DXA Scan 2024 GFR 10/11/2025 10/11/2024, 01/2024, 03/13/2023, Additional history [...] Priority Date/Time Associated Diagnosis Comments CT CHEST W CONTRAST STAT 10/14/2024 1 2:43 PM EST HCC (hepatocellular carcinoma) (HCC) documented in this encounter Results * CT CHEST W CONTRAST (10/14/2024 12:43 PM EST) Anatomical Region Laterality Modality Chest, Body, Cardio Computed Armani ography 10/14/2024 1:03 PM EST Impressions 10/14/2024 1:00 PM EST IMPRESSION No evidence of metastatic disease in the chest. Narrative 10/14/2024 1:00 PM EST EXAM EXAM: CT CHEST W CONTRAST DATE and TIME: 10/14/2024 12:43 pm HISTORY CLINICAL INFORMATION: New diagnosis of HCC, staging TECHNIQUE CT of the chest was performed with intravenous contrast. Sagittal and coronal reformats were obtained. COMPARISON MRI abdomen 09/27/2024. FINDINGS LUNGS, PLEURA: Patent central airways. Mild emphysema. No suspicious pulmonary nodule. No pleural effusion. CARDIOVASCULAR, MEDIASTINUM: Normal heart size. No pericardial effusion. Normal caliber of the thoracic aorta and main pulmonary artery. LYMPH NODES: No lymphadenopathy. SKELETON, CHEST WALL: Degenerate changes of the visualized spine. No chest wall abnormality. VISUALIZED UPPER ABDOMEN: Please refer to MRI abdomen 09/27/2024. Procedure Note Wilton Curran MD - 10/14/2024 EXAM EXAM: CT CHEST W CONTRAST DATE and TIME: 10/14/2024 12:43 pm HISTORY CLINICAL INFORMATION: New diagnosis of HCC, staging TECHNIQUE CT of the chest was performed with intravenous contrast. Sagittal andcoronal reformats were obtained. COMPARISON MRI abdomen 09/27/2024. FINDINGS LUNGS, PLEURA: Patent central airways. Mild emphysema. No suspiciouspulmonary nodule. No pleural effusion. CARDIOVASCULAR, MEDIASTINUM: Normal heart size. No pericardial effusion.Normal caliber of the thoracic aorta and main pulmonary artery. LYMPH NODES: No lymphadenopathy. SKELETON, CHEST WALL: Degenerate changes of the visualized spine. Nochest wall abnormality. VISUALIZED UPPER ABDOMEN: Please refer to MRI abdomen 09/27/2024. IMPRESSION IMPRESSION No evidence of metastatic disease in the chest. us Red MCKENNA CT Final Re sult documented in this encounter Visit Diagnoses Diagnosis HCC (hepatocellular carcinoma) (HCC) Malignant neoplasm of liver, primary documented in this encounter Administered Medications Inactive Administered Medications - up to 3 most recent administrations Medication Order MAR Action Action Date Dose Rate Site Iopamidol (Isovue 370) inj 80 mL 80 mL, Intravenous, ONCE, On [place] 10/14/24 at 1246, For 1 dose, Radiology Medication Routing (Non-IR) Given 10/14/2024 12:49 PM EST 80 mL documented in this encounter Care Teams Finisher Special Stocks Relationship Specialty Start Date End Date Jay Gonzales MD [address] [place] [phone] PCP - General Family Medicine 09/13/22 documented as of this encounter
--- OUTSIDE RECORDS SUMMARY | 2025-02-12 16:17 | External Medical Summary | Summary of Care ---
Author Name Unknown Organization [facility] Address [address] [facility] [place] [address] Phone [phone] Care Team Providers Care Company Laborer Name Role Phone Jay Gonzales MD Primary Care Provi syl Reason for Visit * Reason Comments Outpatient Testing Encounter Details Date Type Department Care Team ([facility] st Contact Info) Description 10/11/2024 12:20 PM EST Laboratory Laboratory Patient Service [address] [phone] [address] [address] HCC (hepatocellular carcinoma) (HCC) Allergies No known active allergiesdocumented as of this encounter (statuses as of 10/11/2024) Medications Multiple Vitamins-Mineral s (CENTRUM ADULTS) TABS [...] 10/10/2022 Benzonatate 100 MG Oral Capsule (Tessalon Perles) Take 1 Capsule by mouth 3 times a day as needed for Cough. Do not cut, crush, or chew. 50 Capsule 1 2 Active Venlafaxine HCl ER 75 MG Oral Capsule Extended Release 24 Hour (Effexor XR)Indications:M ood disorder (HCC) TAKE 1 CAPSULE BY MOUTH DAILY. 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) 08/20/2024 Major depressive disorder with single episode HTN, goal below 130/80 04/03/2023 Wears dentures 04/18/2021 Thrombocytopenia 08/18/2020 Portal hypertension 06/09/2019 Mood disorder 02/16/2018 Other cirrhosis of liver 09/14/2009 Menopause 09/11/2009 Overview (09/11/2009): Age 46 Generalized anxiety disorder 07/03/2009 documented as of this encounter (statuses as of 10/11/2024) Resolved Problems Problem Noted Date Diagnosed Date Resolved Date OTHER 11/15/2009 08/20/2018 Overview (11/20/2009): Genotype 1a Chronic hepatitis C 09/21/2009 08/20/20 18 documented as of this encounter (statuses as of 10/11/2024) Immunizations Name Administration Dates Next Due TDAP, [...] Upcoming Encounters Date Type Department Care Team ([facility] st Contact Info) Description 02/25/2025 11:00 AM EDT Office Visit [address] [phone] Jay Gonzales MD [address] [place] [phone] Pending Results Name Type Priority Associated Diagnoses Date /Time CBC Lab Routine HCC (hepatocellular carcinoma) (HCC) 10/11/2024 12:20 PM EST COMPREHENSIVE METABOLIC PANEL Lab Routine HCC (hepatocellular carcinoma) (HCC) 10/11/2024 12:20 PM EST PT INR Lab Routine HCC (hepatocellular carcinoma) (HCC) 10/11/2024 12:20 PM EST ALPHA-FETOPROTEIN TUMOR MARKER Lab Routine HCC (hepatocellular carcinoma) (HCC) 10/11/2024 12:20 PM EST Scheduled Procedures Name Priority Associated Diagnoses Date/Ti me COLONOSCOPY FLEXIBLE PROXIMA L DIAGNOSTIC Recall Personal history of colonic polyps Health Maintenance Due Date Last Done Comments Albumin/Creatinine Ratio 1977 Pneumococcal Vaccine: 65+ Years (1 of 2 - PCV) 1978 [...] shot) (#1) 2024 DXA Scan 2024 GFR 08/23/2025 08/23/2024, 0502/2023, 06/18/2022, Additional history exists Diabetes Screening 08/23/2027 08/23/2024, 0 03/13/2023, 06/18/2022, Additional history exists Lipid Panel 08/23/2029 08/23/2024, [...] as of this encounter Visit Diagnoses Diagnosis HCC (hepatocellular carcinoma) (HCC) Malignant neoplasm of liver, primary documented in this encounter Care Teams Company Laborer Relationship Specialty Start Date End Date Jay Gonzales MD [address] [place] [phone] PCP - General Family Medicine 09/13/22 documented as of this encounter
--- OUTSIDE RECORDS SUMMARY | 2025-02-12 16:17 | External Medical Summary | Summary of Care ---
Author Name Unknown Organization [facility] Address [address] [place] [address] Phone [phone] Care Team Providers Care Production Engine Repairer Name Role Phone Jay Gonzales MD Primary Care Provi syl Reason for Referral * Precert (Within 10 days (routine)) - Authorized Specialty Diagnoses / Procedures Referred By Contac t Referred To Contact Radiology Diagnoses Liver lesion Procedures MRI LIVER W WO CONTRAST Jay Gonzales MD [address] [place] [phone] Phone: tel: fax: Referral ID Status Reason Start Date Expiration Date V isits Requested Visits Authorized [id number] Authorized 09/09/2024 999 999 Reason for Visit * Reason Onset Date Comments Test Results 09/07/2024 Unexpected or In determinate Result Encounter Details Date Type Department Care Team (Late st Contact Info) Description 09/07/2024 Telephone Laboratory, [facility] [place] [address] [place] [address] Jay Gonzales MD [address] [place] [phone] Test Results (Unexpected or Indeterminate ... Allergies No known active allergiesdocumented as of this encounter (statuses as of 09/10/2024) Medications Multiple Vitamins-Mineral s (CENTRUM ADULTS) TABS [...] or chew. 50 Capsule 1 2 Active Carvedilol 6.25 MG Oral Tablet (Coreg)Indicatio ns: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),Secondary esophageal varices without bleeding (HCC) Take 1 Tablet by mouth 2 times a day with morning and evening meals. 90 Tablet 3 4 Active Venlafaxine HCl ER 75 MG Oral Capsule Extended Release 24 Hour (Effexor XR)Indications:M ood disorder (HCC) TAKE 1 CAPSULE BY MOUTH DAILY. DO NOT CUT, CRUSH OR CHEW (TAKE WITH [id number] DAILY) 90 Capsule 4 Active Venlafaxine HCl [...] for Wheezing. 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) 08/20/2024 Major depressive disorder with single episode HTN, goal below 130/80 04/03/2023 Wears dentures 04/18/2021 Thrombocytopenia 08/18/2020 Portal hypertension 06/09/2019 Mood disorder 02/16/2018 Other cirrhosis of liver 09/14/2009 Menopause 09/11/2009 Overview (09/11/2009): Age 46 Generalized anxiety disorder 07/03/2009 documented as of this encounter (statuses as of 09/10/2024) Resolved Problems Problem Noted Date Diagnosed Date Resolved Date OTHER 11/15/2009 08/20/2018 Overview (11/20/2009): Genotype 1a Chronic hepatitis C 09/21/2009 08/20/20 18 documented as of this encounter (statuses as of 09/10/2024) Immunizations Name Administration Dates Next Due TDAP, [...] encounter Miscellaneous Notes * Telephone Encounter - Marco Antonio Funez - 09/10/2024 8:21 AM EST Spoke to patient, appointment scheduled * Telephone Encounter - Josette Scott RN - 09/09/2024 3:23 PM EST Provider to address: Patient returned call. Explained results of recent ultrasound and need for MRI. Patient verbalized understanding and all questions answered. Encouraged patient to keep appointment with hepatology. Encounter to front office to assist with scheduling MRI. Reason for Call: Test Results (Unexpected or Indeterminate Result) Contact: Telephone Call Contact Type: Test Results Provider In-Basket: Yes Outcome: see above Face to face time spent with Patient (minutes): 0 Total Time including non face to face (minutes): 10 * Telephone Encounter - Josette Scott RN - 09/09/2024 11:29 AM EST Provider to address: Attempted to reach patient regarding ultrasound results. Unable to leave voicemail as it is not set up. Portal message sent to patient. Reason for Call: Test Results (Unexpected or Indeterminate Result) Contact: Telephone Call Contact Type: Test Results Provider In-Basket: Yes Outcome: see above Face to face time spent with Patient (minutes): 0 Total Time including non face to face (minutes): 10 * Addendum Note - Jay Gonzales MD - 09/09/2024 11:08 AM EST Addended by: JAY GONZALES on: 09/09/2024 11:08 AM Modules accepted: Orders * Telephone Encounter - Jay Gonzales MD - 09/09/2024 11:05 AM EST Please notify the patient that there was a small lesion noted in her liver. The radiologist recommends further imaging with an MRI. The lesion is said to be "ill-defined", and it very well could be abenign cyst, but it is hard to determine with the ultrasound. Please remind her of the importance to make her appointment with Hepatology on 10/07/2024. Very important considering history of liver cirrhosis * Telephone Encounter - Felipa Gabriel OSA - 09/07/2024 3:26 PM EST Hello- The radiologist discovered an unexpected or indeterminate finding on Neha Marks ([id number]) and asks that you review the following report. Study Type: US ABDOMEN LIMITED Date of Study: 09/06/2024 IMPRESSION IMPRESSION 1. Cirrhosis. Hypoechoic lesion in the left lobe. Ill-defined heterogeneity in the right lobe. Further evaluation by liver MRI without and with intravenous contrast recommended. 2. Cholelithiasis. Stone in the neck of the gallbladder. No signs of cholecystitis on this study. Please respond to this encounter to acknowledge receipt of this message and take responsibility to ensure this report is reviewed. Thank you, TORI Ramirez Client Service [facility] documented in this encounter Plan of Treatment Upcoming Encounters Date Type Department Care Team (Late st Contact Info) Description 09/27/2024 10:00 AM EST Appointment Radiology, [facility] [address] [place] [address] 10/07/2024 3:40 PM EST Telemedicine Hepatology, [facility] [place] [address] [place] [address] Red Marcum DO [address] [place] [address] 02/25/2025 11:00 AM EDT Office Visit [address] [phone] Jay Gonzales MD [address] [place] [phone] Scheduled Orders Name Type Priority Associated Diagnoses Orde r Schedule MRI LIVER W WO CONTRAST Medical Imaging Routine Liver lesion Expected: 09/09/2024, Expires: 10/09/2025 Scheduled Procedures Name Priority Associated Diagnoses Date/Ti me COLONOSCOPY FLEXIBLE PROXIMA L DIAGNOSTIC Recall Personal history of colonic polyps Health Maintenance Due Date Last Done Comments Pneumococcal Vaccine: 65+ Years (1 of 2 - PCV) 1965 Albumin/Creatinine Ratio 1977 Mammogram 1999 Cologuard 2004 Fecal Occult Blood Test 2004 Sigmoidoscopy 2004 Zoster Vaccines (1 of 2) 2009 Hepatitis B Vaccine (1 of 3 - Risk 3-dose series) 2019 Depression Monitoring 06/25/2023 06/25/2022 Colonoscopy 05/06/2024 05/06/2019, 04/19, 10/31/2014, Additional history exists Colorectal Cancer Screening 05/06/2024 COVID-19 Vaccine ( - season) 2024 Influenza Vaccine (FLU shot) (#1) 2024 DXA Scan 2024 GFR 08/23/2025 08/23/2024, 02/18, 06/18/2022, Additional history exists Diabetes Screening 08/23/2027 [...] as of this encounter Visit Diagnoses Diagnosis Liver lesion- Primary Other specified disorders of liver documented in this encounter Care Teams Production Engine Repairer Relationship Specialty Start Date End Date Jay Gonzales MD [address] [place] [phone] PCP - General Family Medicine 09/13/22 documented as of this encounter
--- OUTSIDE RECORDS SUMMARY | 2025-02-12 16:17 | External Medical Summary ---
Author Name Unknown Address Unknown Organization [id number]:[facility] [place] - [address] [place] [address] Laboratory Report Ordering Provider Test Date Status BABAK FRANKLIN 10/11/2024 12:20:40 Final Warfarin Therapy
INR: 2 .0-3.0 conventional anticoagulation
INR: 2.5- 3.5 high intensity anticoagulation Observation Date Value Abnormality Reference (Units ) Status PT 10/11/2024 12:20:40 16.5 Above high normal 11 .6-15.2 (seconds) Final INR 10/11/2024 12:20:40 1.3 Above high normal 0. 8-1.2 Final Performing Location [facility] [place] - [address] [place] [address]
--- OUTSIDE RECORDS SUMMARY | 2025-02-12 16:17 | External Medical Summary | Summary of Care ---
Author Name Unknown Organization [facility] Address [address] [place] [address] Phone [phone] Care Team Providers Care Entry Level Chemist Name Role Phone Jay Gonzales MD Primary Care Provi syl Reason for Referral * Precert (Within 24 hrs (call dept; emergent)) - Authorized Specialty Diagnoses / Procedures Referred By Vaibhav roldan Referred To Contact Radiology Diagnoses HCC (hepatocellular carcinoma) (HCC) Procedures CT CHEST WO CONTRAST Red Marcum DO [address] [place] [address] Phone: tel: fax: Referral ID Status Reason Start Date Expiration Date V isits Requested Visits Authorized [id number] Authorized 10/08/2024 999 999 Reason for Visit * Evaluate & Treat - Unlimited Visits (Within 10 days (routine)) - Authorized Specialty Diagnoses / Procedures Referred By Vaibhav roldan Referred To Contact Gastroenterology Diagnoses 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) Portal hypertension (HCC) Jay Gonzales MD [address] [phone] Phone: tel: fax: Referral ID Status Reason Start Date Expiration Date Visits Requested Visits Authorized [id number] Authorized Specialty Services Required 08/20/2024 999 999 Encounter Details Date Type Department Care Team (Late st Contact Info) Description 10/07/2024 3:40 PM EST Telemedicine Hepatology, [place] [address] [place] [address] Red Marcum, [address] [place] [address] HCC (hepatocellular carcinoma) (HCC)* Allergies No known active allergiesdocumented as of this encounter (statuses as of 10/07/2024) Medications Multiple Vitamins-Mineral s (CENTRUM ADULTS) TABS [...] NOT CUT, CRUSH OR CHEW (TAKE WITH [id number] DAILY) 90 Capsule 4 Active Venlafaxine HCl [...] as of this encounter (statuses as of 10/07/2024) Active Problems Problem Noted Date Diagnosed Date 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) 08/20/2024 Major depressive disorder with single episode HTN, goal below 130/80 04/03/2023 Wears dentures 04/18/2021 Thrombocytopenia 08/18/2020 Portal hypertension 06/09/2019 Mood disorder 02/16/2018 Other cirrhosis of liver 09/14/2009 Menopause 09/11/2009 Overview (09/11/2009): Age 46 Generalized anxiety disorder 07/03/2009 documented as of this encounter (statuses as of 10/07/2024) Resolved Problems Problem Noted Date Diagnosed Date Resolved Date OTHER 11/15/2009 08/20/2018 Overview (11/20/2009): Genotype 1a Chronic hepatitis C 09/21/2009 08/20/20 18 documented as of this encounter (statuses as of 10/07/2024) Immunizations Name Administration Dates Next Due TDAP, [...] as of this encounter Progress Notes * Oswaldo Perez MD - 10/07/2024 3:42 PM EST I have discussed the patient's management with Dr. Marcum and agree with the note. Please refer tothe documented findings and plan of care. This patient's visit today consisted of an evaluation. I was present and confirmed the findings of the history and exam. Oswaldo Perez MD * Red Marcum DO - 10/07/2024 3:40 PM EST [facility] No chief complaint on file. History of Present Illness: Neha Marks is a 64 year old female with PMHx of compensated HCV cirrhosis who presents as a video-visit for follow-up. In 2014 she received treatment with DAA (Harvoni, 24 weeks) with SVR in in [place]. There is a current concern for HCC on MRI liver from 09/27/24: Infiltrative appearing observation suspicious for hepatocellular carcinoma centered in segment 7 measures 85 x 50 mm transversely, LR [address] Fonseca February 2023. Patient presents today for video visit with her . She overall feels well, but does endorse fatigue for the past few months. Denies any jaundice or scleral icterus, fevers, chills, night sweats, WL. Endorses urinary urgency. No dysuria, foul odors or hematuria. Cirrhosis Dashboard Etiology [] MASH [] ETOH [x] HCV [] AIH [] PBC [] PSC [] Other: Stage [x] Compensated [] Decompensated [] Further Decompensation []Recompensated [] No EV [x] Small EV [] Large EV [] Ascites [] Variceal Hem [] Hep encephal [] Jaundice [] 2nd event [] Recurrent: Ascites / VH/ HE [] HRS-AK [] SBP [] Off diuretics & CTP A Comorb [] DM [] Metab Sx [] CAD [] COPD | CKD [] III [] IV [] V (HD) [] Malignancy | Obesity [] 1 [] 2 [] 3 Lifestyle [] Alcohol use disorder [] Substance abuse [x] Tobacco use IMAGING INFORMATION - Most Recent Imaging Date: MRI Liver 09/2024 IMPRESSION Infiltrative appearing observation suspicious for hepatocellular [...] to suggest acute cholecystitis at this time. RUQ US 08/2024 IMPRESSION 1. Cirrhosis. Hypoechoic lesion in the left lobe. Ill-defined heterogeneity in the right lobe. Further evaluation by liver MRI without and with intravenous contrast recommended. 2. Cholelithiasis. Stone in the neck of the gallbladder. No signs of cholecystitis on this study. EGD RESULTS - Most Recent EGD Date: EGD 06/2022 Impression: - Grade I esophageal varices. - Portal hypertensive gastropathy. - Normal examined duodenum. - No specimens collected. 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-repeat 3 years Chronic hepatitis C (HCC) Generalized anxiety disorder 07/03/2009 Menopause 09/11/2009 Age 46 OTHER 11/15/09 Genotype 1a Pneumonia due to organism as a child Past Surgery History: Past Surgical History: Procedure Laterality Date COLONOSCOPY W/ LESION REMOVAL, SNARE 05/20/2011 adentomatous tissue--repeat 3 years COLONOSCOPY, DIAGNOSTIC (RECTUM) 05/06/2019 hyperplastic polyps, repeat 5 yrs/COLONOSCOPY FLEXIBLE PROXIMAL DIAGNOSTIC performed by Leandro Torres MD at [facility] EGD, FLEXIBLE, DIAGNOSTIC 05/06/2019 normal bx/ESOPHAGOGASTRODUODENOSCOPY (EGD), FLEXIBLE, TRANSORAL, DIAGNOSTIC performed by Leandro Torres MD at [facility] EGD, FLEXIBLE, DIAGNOSTIC 06/20/2022 Portal hypertensive gastropathy, eso varices / ESOPHAGOGASTRODUODENOSCOPY (EGD), FLEXIBLE, TRANSORAL, DIAGNOSTIC performed by Leandro Torres MD at [facility]COPY [facility] LASIK SURGERY THUMB FX/DISLOC (MELÉNDEZ), REPAIR 2000 rt Current Outpatient Medications Medication Sig Dispense Refill Multiple Vitamins-Minerals (CENTRUM ADULTS) TABS Take by mouth daily. Fluticasone Propionate 50 MCG/ACT Nasal Suspension (Flonase) USE 2 SPRAYS EACH NOSTRIL EVERY 12 HRSX 2 WKS, THEN 1 SPRAY EVERY 12 HRS AFTER SALINE RINSE (Patient taking differently: USE 2 SPRAYS EACH NOSTRIL EVERY 12 HRS X 2 WKS, THEN 1 SPRAY EVERY 12 HRS AFTER SALINE RINSE) 48 mL 1 Benzonatate 100 MG Oral Capsule (Tessalon Perles) Take 1 Capsule by mouth 3 times a day as needed for Cough. Do not cut, crush, or chew. 50 Capsule 1 Venlafaxine HCl ER 75 MG Oral Capsule Extended Release 24 Hour (Effexor XR) TAKE 1 CAPSULE BY MOUTHDAILY. DO NOT CUT, CRUSH OR CHEW (TAKE WITH 857=729HC DAILY) 90 Capsule 0 Venlafaxine HCl ER 150 MG Oral Capsule Extended Release 24 Hour (Effexor XR) TAKE 1 CAPSULE BY MOUTH EVERY DAY DO NOT CUT, CRUSH, OR CHEW 90 Capsule 0 QUEtiapine Fumarate 25 MG Oral Tablet (SEROquel) Take 1 Tablet by mouth at bedtime. 90 Tablet 3 Ventolin HFA 108 (90 Base) MCG/ACT Inhalation Aerosol Solution Inhale 2 Puffs by mouth every 4 hours as needed for Wheezing. 6.7 g 3 Carvedilol 6.25 MG Oral Tablet (Coreg) Take 1 Tablet by mouth 2 times a day with morning and evening meals. 90 Tablet 3 No current facility-administered medications for this visit. Review of patient's allergies indicates: No Known Allergies Family History Problem Relation Name Age of Onset No Past Hx Mother Gastro-intestinal disorder Father of cirrhosis in fifties, etoh Lung Disorder Sister copd Social History Socioeconomic History Marital status: Tobacco Use Smoking status: Every Day Current packs/day: 0.50 Average packs/day: 0.5 packs/day for 20.0 years (10.0 ttl pk-yrs) Types: Cigarettes Passive exposure: Never Smokeless tobacco: Never Tobacco comments: 10 per day Vaping Use Vaping status: Never Used Substance and Sexual Activity Alcohol use: No Drug use: No Sexual activity: Yes Partners: Male Comment: M 1987, vas Social Needs Social Connections ROS: As stated above, otherwise negative. 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 Physical Exam: Constitutional: Alert, awake, and oriented. In no acute distress Head: Atraumatic, normocephalic, no externally visual scars Eyes: EOMI, no scleral icterus Resp: Bilateral equal chest raise, no audible wheezing Extremities: no cyanosis, no edema Skin: clear, dry, intact, no visible excoriations Neuro: CN 2-12 grossly intact bilaterally Psych: pleasant affect, conversational Labs reviewed in [facility]: Reviewed in [facility] Latest Reference Range & Units 08/23/24 12:40 Albumin 3.8 - 5.0 g/dL 4.1 AST 10 - 35 U/L 56 (H) ALT 10 - 35 U/L 32 Alkaline Phosphatase 35 - 130 U/L 284 (H) Bilirubin, Total <=1.2 mg/dL 0.7 Latest Reference Range & Units 08/23/24 12:40 WBC 4.00 - 10.80 K/uL 5.11 RBC 3.85 - 5.15 M/uL 4.52 HGB 12.0 - 15.3 g/dL 13.7 HCT 36.0 - 45.2 % 43.4 MCV 81.5 - 97.5 fL 96.0 MCH 27.0 - 34.0 pg 30.3 MCHC 32.0 - 36.0 g/dL 31.6 RDW 11.5 - 15.5 % 14.5 PLT 140 - 400 K/uL 64 (L) MPV 6.6 - 11.1 fL 12.8 Radiology data reviewed in [facility]: Reviewed in [facility] Endoscopic Hx: EGD 06/2022 Impression: - Grade I esophageal varices. - Portal hypertensive gastropathy. - Normal examined duodenum. - No specimens collected. ASSESSMENT AND RECOMMENDATIONS: Neha Marks is a 64 year old female with PMHx of compensated HCV cirrhosis who presents as a video-visit for follow-up. There is a current concern for HCC on MRI liver from 09/2024. 8.5 x 5.0 cm LR 5 lesion as well as a 1.2 x 1.8 cm LR 3 lesion. Overall suspect advanced stage (C) HCC. Will update MELD, obtain AFP and CT chest. Patient will be presented at HCC meeting 10/27/2023. Based on today's limited video visit suspect ECO. HCC (hepatocellular carcinoma) (HCC) (Primary) - CBC; Future; Expected date: 10/07/2024 - COMPREHENSIVE METABOLIC PANEL; Future; Expected date: 10/07/2024 - PT INR; Future; Expected date: 10/07/2024 - ALPHA-FETOPROTEIN TUMOR MARKER; Future; Expected date: 10/07/2024 - CT CHEST WO CONTRAST; Future; Expected date: 10/08/2024 Patient was discussed with Dr. Perez, attending physician. Red Marcum DO Gastroenterology Fellow Patient location: HOME. I was in a hospital or clinic location. After connecting through televideo,patient was verified with two unique identifiers. Patient (or authorized legal technical services representative) was then informed that this was a Telemedicine visit and being conducted confidentially over secure lines. Methods to assure confidentiality were taken. Patient acknowledged consent and understanding of pr ivacy and security of the Telemedicine visit. The patient agreed to participate. documented in this encounter Plan of Treatment Upcoming Encounters Date Type Department Care Team ([facility] st Contact Info) Description 02/25/2025 11:00 AM EDT Office Visit [address] [phone] Jay Gonzales MD [address] [phone] Scheduled Orders Name Type Priority Associated Diagnoses Orde r Schedule CBC Lab Routine HCC (hepatocellular carcinoma) (HCC) Expected: 10/07/2024, Expires: 10/07/2025 COMPREHENSIVE METABOLIC PANEL Lab Routine HCC (hepatocellular carcinoma) (HCC) Expected: 10/07/2024, Expires: 10/07/2025 PT INR Lab Routine HCC (hepatocellular carcinoma) (HCC) Expected: 10/07/2024, Expires: 10/07/2025 ALPHA-FETOPROTEIN TUMOR MARKER Lab Routine HCC (hepatocellular carcinoma) (HCC) Expected: 10/07/2024, Expires: 10/07/2025 CT CHEST WO CONTRAST Medical Imaging STAT HCC (hepatocellular carcinoma) (HCC) Expected: 10/08/2024, Expires: 11/07/2024 Scheduled Procedures Name Priority Associated Diagnoses Date/Ti [...] encounter Visit Diagnoses Diagnosis HCC (hepatocellular carcinoma) (HCC)- Primary Malignant neoplasm of liver, primary documented in this encounter Care Teams Entry Level Chemist Relationship Specialty Start Date End Date Jay Gonzales MD [address] [phone] PCP - General Family Medicine 09/13/22 documented as of this encounter"
--- OUTSIDE RECORDS SUMMARY | 2025-02-12 16:17 | External Medical Summary ---
Author Name Unknown Address Unknown Organization K01:[facility] [place] [address] [facility] [place] [address] Laboratory Report Ordering Provider Test Date Status GARRY URIARTE 11/30/2024 12:28:39 Final Observation Date Value Abnormality Reference (Units ) Status BUN 11/30/2024 12:28:39 11 6-20 (mg/dL) Final Creatinine 11/30/2024 12:28:39 0.5 0.5-1.0 (mg/dL) Final Glomerular filtration rate/1.73 sq M.predicted [Volume Rate/Area] in Serum, Plasma or Blood by Creatinine-based formula (CKD-EPI) 11/30/2024 12:28:39 >90 >=60 (mL/min) Final eGFR is calculated based on the CKD-EPI 2020 equation. Sodium 11/30/2024 12:28:39 140 135-146 (m mol/L) Final Potassium 11/30/2024 12:28:39 3.2 Below low normal 3.5 -5.1 (mmol/L) Final Cl 11/30/2024 12:28:39 102 98-107 (mm ol/L) Final CO2 11/30/2024 12:28:39 27 22-32 (mmo l/L) Final Anion gap 11/30/2024 12:28:39 11 7-15 (mmol /L) Final Glucose 11/30/2024 12:28:39 173 Above high normal 70 -120 (mg/dL) Final Albumin 11/30/2024 12:28:39 3.9 3.8-5.0 (g /dL) Final AST (Aspartate aminotransferase) 11/30/2024 12:28:39 63 Above high normal 10-35 (U/L) Final Alk Phos 11/30/2024 12:28:39 510 Above high normal 35 -130 (U/L) Final Bilirubin, Total 11/30/2024 12:28:39 0.9 <=1 .2 (mg/dL) Final Calcium 11/30/2024 12:28:39 9.5 8.4-10.2 ( mg/dL) Final Protein 11/30/2024 12:28:39 6.7 6.0-8.3 (g /dL) Final ALT (Alanine aminotransferase) 11/30/2024 12:28:39 37 Above high normal 10-35 (U/L) Final Performing Location [facility] [address] [facility] [address]
--- OUTSIDE RECORDS SUMMARY | 2025-02-12 16:17 | External Medical Summary | Summary of Care ---
Author Name Unknown Organization [facility] Address [address] [place] [address] Phone [phone] Care Team Providers Care Hull Molder Name Role Phone Jay Gonzales MD Primary Care Provi [facility] Reason for Visit * Reason Onset Date Comments Appointment 11/15/2024 IR Encounter Details Date Type Department Care Team (Late st Contact Info) Description 11/15/2024 Telephone [facility] [place] [address], [place] [id number] Self [address] ADDRESS AVAILABLE Appointment (IR) Allergies No known active allergiesdocumented as of this encounter (statuses as of 11/15/2024) Medications Multiple Vitamins-Mineral s (CENTRUM ADULTS) TABS [...] or chew. 50 Capsule 1 2 Active QUEtiapine Fumarate 25 MG Oral Tablet [...] NOT CUT, CRUSH OR CHEW (TAKE WITH 255=[id number] DAILY) 90 Capsule 1 5 Active documented as of this encounter (statuses as of 11/15/2024) Active Problems Problem Noted Date Diagnosed Date 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) 08/20/2024 Major depressive disorder with single episode HTN, goal below 130/80 04/03/2023 Wears dentures 04/18/2021 Thrombocytopenia 08/18/2020 Portal hypertension 06/09/2019 Mood disorder 02/16/2018 Other cirrhosis of liver 09/14/2009 Menopause 09/11/2009 Overview (09/11/2009): Age 46 Generalized anxiety disorder 07/03/2009 documented as of this encounter (statuses as of 11/15/2024) Resolved Problems Problem Noted Date Diagnosed Date Resolved Date OTHER 11/15/2009 08/20/2018 Overview (11/20/2009): Genotype 1a Chronic hepatitis C 09/21/2009 08/20/20 18 documented as of this encounter (statuses as of 11/15/2024) Immunizations Name Administration Dates Next Due TDAP, [...] encounter Miscellaneous Notes * Telephone Encounter - Sanna Padron OSA - 11/15/2024 2:36 PM EST Pt called me back to schedule a mediport insertion in IR. The stated that they were going to hold off and see, they have an appointment with Dr. Kincaid on 11/18 to speak about a possible Y90 procedure, they were hoping to get the mediport placed at the same time as the y90 documented in this encounter Plan of Treatment Upcoming Encounters Date Type Department Care Team (Late st Contact Info) Description 11/18/2024 2:30 PM EST Office Visit Radiology, [place] [address] [place] [address] Jay Kincaid MD [address] [place] [address] 02/25/2025 11:00 AM EDT Office Visit [facility] [address] [place] [phone] Jay Gonzales MD [address] [place] [phone] Scheduled Procedures Name Priority Associated Diagnoses [...] EKG FOR HTN 11/14/2024 GFR 10/11/2025 10/11/2024, 1101/2024, 03/13/2023, Additional history exists Diabetes Screening 10/11/2027 [...] Not on filedocumented as of this encounter Care Teams Hull Molder Relationship Specialty Start Date End Date Jay Gonzales MD [address] [place] [phone] PCP - General Family Medicine 09/13/22 documented as of this encounter
--- OUTSIDE RECORDS SUMMARY | 2025-02-12 16:17 | External Medical Summary | Summary of Care ---
Author Name Unknown Organization [facility] Address [address] [place] [address] Phone [phone] Care Team Providers Care Shingler Name Role Phone Jay Gonzales MD Primary Care Provi syl Reason for Referral * Precert (Within 10 days (routine)) - Authorized Specialty Diagnoses / Procedures Referred By Contac t Referred To Contact Radiology Diagnoses HCC (hepatocellular carcinoma) (HCC) Procedures NM SPECT CT SINGLE AREA, SINGLE DAY Jay Kincaid MD [address] [place] [address] Phone: tel: fax: Referral ID Status Reason Start Date Expiration Date V isits Requested Visits Authorized [id number] Authorized 11/19/2024 999 999 * Precert (Within 10 days (routine)) - Authorized Specialty Diagnoses / Procedures Referred By Contac t Referred To Contact Radiology Diagnoses HCC (hepatocellular carcinoma) (HCC) Procedures NM LIVER STATIC ONLY IMAGING Jay Kincaid MD [address] [place] [address] Phone: tel: fax: Referral ID Status Reason Start Date Expiration Date V isits Requested Visits Authorized [id number] Authorized 11/19/2024 999 999 * Precert (Within 10 days (routine)) - Authorized Specialty Diagnoses / Procedures Referred By Contac t Referred To Contact Radiology Diagnoses HCC (hepatocellular carcinoma) (HCC) Procedures NM LIVER SPECT Jay Kincaid MD [address] [place] [address] Phone: tel: fax: Referral ID Status Reason Start Date Expiration Date V isits Requested Visits Authorized [id number] Authorized 11/18/2024 999 999 * Precert (Within 10 days (routine)) - Authorized Specialty Diagnoses / Procedures Referred By Contac t Referred To Contact Radiology Diagnoses HCC (hepatocellular carcinoma) (HCC) Procedures IR ARTERIAL DIAGNOSTIC Jay Kincaid MD [address] [place] [address] Phone: tel: fax: Referral ID Status Reason Start Date Expiration Date V isits Requested Visits Authorized [id number] Authorized 11/18/2024 999 999 * Precert (Within 10 days (routine)) - Authorized Specialty Diagnoses / Procedures Referred By Contac t Referred To Contact Radiology Diagnoses HCC (hepatocellular carcinoma) (HCC) Procedures IR CANCER SIR SPHERES EMBOLIZATION Jay Kincaid MD [address] [place] [address] Phone: tel: fax: Referral ID Status Reason Start Date Expiration Date V isits Requested Visits Authorized [id number] Authorized 11/19/2024 999 999 Reason for Visit * Reason Comments Consultation Liver Disease Encounter Details Date Type Department Care Team (Late st Contact Info) Description 11/18/2024 2:30 PM EST Office Visit Radiology, [place] [address] [place] [address] Jay Kincaid MD [address] HCC (hepatocellular carcinoma) (HCC)* Allergies No known active allergiesdocumented as of this encounter (statuses as of 11/19/2024) Medications Multiple Vitamins-Mineral s (CENTRUM ADULTS) TABS [...] AFTER SALINE RINSE,Indications: as needed, Reported on 11/18/2024 Benzonatate 100 MG Oral Capsule (Tessalon Perles) [...] NOT CUT, CRUSH OR CHEW (TAKE WITH 870=485FF DAILY) 90 Capsule 1 5 Active documented as of this encounter (statuses as of 11/19/2024) Active Problems Problem Noted Date Diagnosed Date 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) 08/20/2024 Major depressive disorder with single episode HTN, goal below 130/80 04/03/2023 Wears dentures 04/18/2021 Thrombocytopenia 08/18/2020 Portal hypertension 06/09/2019 Mood disorder 02/16/2018 Other cirrhosis of liver 09/14/2009 Menopause 09/11/2009 Overview (09/11/2009): Age 46 Generalized anxiety disorder 07/03/2009 documented as of this encounter (statuses as of 11/19/2024) Resolved Problems Problem Noted Date Diagnosed Date Resolved Date OTHER 11/15/2009 08/20/2018 Overview (11/20/2009): Genotype 1a Chronic hepatitis C 09/21/2009 08/20/20 18 documented as of this encounter (statuses as of 11/19/2024) Immunizations Name Administration Dates Next Due TDAP, [...] Sign Reading Time Taken Comments Blood Pressure 144/70 11/18/2024 2:45 PM EST Pulse 80 11/18/2024 2:45 PM EST Temperature 36.7 °C (98.1 °F) 11/18/2024 2:45 PM ES T Respiratory Rate 20 11/18/2024 2:45 PM EST Oxygen Saturation 97% 11/18/2024 2:45 PM EST Inhaled Oxygen Concentration - - Weight - - Height - - Body Mass Index - - documented in this encounter Progress Notes * Jay Kincaid MD - 11/18/2024 2:30 PM EST Images from the original note were not included. INTERVENTIONAL RADIOLOGY - CLINIC VISIT [place] [address] CHIEF COMPLAINT Liver directed therapy HPI Neha Marks is a 64 year old female with HCV- related cirrhosis and new finding of right liver hepatocellular carcinoma. She was discussed at tumor board and recommended for systemic therapy and Y90. She saw Dr. Tunde Plunkett (oncology) on 11/12/24 who plans to start her to atezo/lazara after Y90. She is accompanied by her daughter and on today's visit. Today she reports occasional right upper quadrant pain and right shoulder pain. She has had diarrhea for a few months, corresponding with the timing of her diagnosis. ROS: - fevers/chills - flushing - chest pain - shortness of breath + RUQ abdominal pain - yellowing of skin or eyes - lower extremity swelling + change in bowel habits (diarrhea) - weight change PAST MEDICAL HISTORY Past Medical History: Diagnosis Date 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-repeat 3 years Chronic hepatitis C (HCC) Generalized anxiety disorder 07/03/2009 Menopause 09/11/2009 Age 46 OTHER 11/15/09 Genotype 1a Pneumonia due to organism as a child PAST SURGICAL HISTORY Past Surgical History: Procedure Laterality Date COLONOSCOPY W/ LESION REMOVAL, SNARE 05/20/2011 adentomatous tissue--repeat 3 years COLONOSCOPY, DIAGNOSTIC (RECTUM) 05/06/2019 hyperplastic polyps, repeat 5 yrs/COLONOSCOPY FLEXIBLE PROXIMAL DIAGNOSTIC performed by Leandro Torres MD at [facility] EGD, FLEXIBLE, DIAGNOSTIC 05/06/2019 normal bx/ESOPHAGOGASTRODUODENOSCOPY (EGD), FLEXIBLE, TRANSORAL, DIAGNOSTIC performed by Leandro Torres MD at [facility] EGD, FLEXIBLE, DIAGNOSTIC 06/20/2022 Portal hypertensive gastropathy, eso varices / ESOPHAGOGASTRODUODENOSCOPY (EGD), FLEXIBLE, TRANSORAL, DIAGNOSTIC performed by Leandro Torres MD at [facility] LASIK SURGERY THUMB FX/DISLOC (MELÉNDEZ), REPAIR 2000 rt FAMILY HISTORY Family History Problem Relation Name Age of Onset No Past Hx Mother Gastro-intestinal disorder Father of cirrhosis in fifties, etoh Lung Disorder Sister copd SOCIAL HISTORY Social History Socioeconomic History Marital status: Spouse [...] No Sexual activity: Yes Partners: Male Comment: Michael 1988, vas Other Topics Concern Not on file Social History Narrative Not on file Social Needs Financial Resource Strain: Not on file Food Insecurity: Not on file Transportation Needs: Not on file Social Connections: Not on file Housing Stability: Not on file HOME MEDICATIONS Current Outpatient Medications: Venlafaxine HCl ER 150 MG Oral Capsule Extended Release 24 Hour (Effexor XR), TAKE 1 CAPSULE BY MOUTH EVERY DAY DO NOT CUT, CRUSH, OR CHEW, Disp: 90 Capsule, Rfl: 1 Venlafaxine HCl ER 75 MG Oral Capsule Extended Release 24 Hour (Effexor XR), TAKE 1 CAPSULE BY MOUTH DAILY. DO NOT CUT, CRUSH OR CHEW (TAKE WITH 595=039UD DAILY), Disp: 90 Capsule, Rfl: 1 Carvedilol 6.25 MG Oral Tablet (Coreg), Take 1 Tablet by mouth 2 times a day with morning and evening meals., Disp: 90 Tablet, Rfl: 3 QUEtiapine Fumarate 25 MG Oral Tablet (SEROquel), Take 1 Tablet by mouth at bedtime., Disp: 90 Tablet, Rfl: 3 Ventolin HFA 108 (90 Base) MCG/ACT Inhalation Aerosol Solution, Inhale 2 Puffs by mouth every 4 hours as needed for Wheezing., Disp: 6.7 g, Rfl: 3 Benzonatate 100 MG Oral Capsule (Tessalon Perles), Take 1 Capsule by mouth 3 times a day as needed for Cough. Do not cut, crush, or chew., Disp: 50 Capsule, Rfl: 1 Fluticasone Propionate 50 MCG/ACT Nasal Suspension (Flonase), USE 2 SPRAYS EACH NOSTRIL EVERY 12 HRS X 2 WKS, THEN 1 SPRAY EVERY 12 HRS AFTER SALINE RINSE (Patient taking differently: USE 2 SPRAYS EACH NOSTRIL EVERY 12 HRS X 2 WKS, THEN 1 SPRAY EVERY 12 HRS AFTER SALINE RINSE), Disp: 48 mL, Rfl: 1 Multiple Vitamins-Minerals (CENTRUM ADULTS) TABS, Take by mouth daily., Disp: , Rfl: ALLERGIES Review of patient's allergies indicates: No Known Allergies PHYSICAL EXAMINATION: Vital Signs : not currently . General : Alert & oriented. HEENT : Oral mucosa moist, no scleral icterus Chest : Clear to auscultation bilaterally. Normal respiratory effort Abdomen : non-distended Extremities : Warm well perfused, no pedal edema. Psych: Normal affect and thought process LAB DATA: Results for orders placed or performed in visit on 10/11/24 CBC Result Value Ref Range WBC 4.70 4.00 - 10.80 K/uL RBC 4.25 3.85 - 5.15 M/uL HGB 12.3 12.0 - 15.3 g/dL HCT 40.1 36.0 - 45.2 % MCV 94.4 81.5 - 97.5 fL MCH 28.9 27.0 - 34.0 pg MCHC 30.7 32.0 - 36.0 g/dL RDW 14.6 11.5 - 15.5 % PLT 57 (L) 140 - 400 K/uL MPV 13.6 6.6 - 11.1 fL nRBCs 0 <=0 /100 WBCs COMPREHENSIVE METABOLIC PANEL Result Value Ref Range BUN 8 6 - 20 mg/dL CREATININE 0.6 0.5 - 1.0 mg/dL EGFR >90 >=60 mL/min SODIUM 139 135 - 146 mmol/L POTASSIUM 3.3 (L) 3.5 - 5.1 mmol/L CHLORIDE 100 98 - 107 mmol/L CO2 27 22 - 32 mmol/L ANION GAP 12 7 - 15 mmol/L GLUCOSE 342 (H) 70 - 120 mg/dL Albumin 3.9 3.8 - 5.0 g/dL AST 98 (H) 10 - 35 U/L Alkaline Phosphatase 370 (H) 35 - 130 U/L Bilirubin, Total 0.9 <=1.2 mg/dL CALCIUM 9.1 8.4 - 10.2 mg/dL Protein 6.4 6.0 - 8.3 g/dL ALT 40 (H) 10 - 35 U/L PT INR Result Value Ref Range Prothrombin Time 16.5 (H) 11.6 - 15.2 seconds INR 1.3 (H) 0.8 - 1.2 ALPHA-FETOPROTEIN TUMOR MARKER Result Value Ref Range Alpha-Fetoprotein Tumor Marker 678.6 (H) 0.0 - 8.3 ng/mL MELD 3.0: 10 at 10/11/2024 12:20 PM Calculated from: Serum Creatinine: 0.6 mg/dL (Using min of 1 mg/dL) at 10/11/2024 12:20 PM Serum Sodium: 139 mmol/L (Using max of 137 mmol/L) at 10/11/2024 12:20 PM Total Bilirubin: 0.9 mg/dL (Using min of 1 mg/dL) at 10/11/2024 12:20 PM Serum Albumin: 3.9 g/dL (Using max of 3.5 g/dL) at 10/11/2024 12:20 PM INR(ratio): 1.3 at 10/11/2024 12:20 PM Age at listing (hypothetical): 64 years Sex: Female at 10/11/2024 12:20 PM Child Caldera 5A ECOG 0 IMAGING: MRI LIVER W WO CONTRAST-09/27/2024 10:09 am Personally reviewed 11/17/24 HISTORY liver lesion on ultrasound COMPARISON US ABDOMEN LIMITED, ACC: [id number], dated 2024-09-06 09:53:59; MRI LIVER W WO CONTRAST, ACC: [id number], dated 2021-06-05 09:40:27; CT ABD_PELVIS W IV AND W ORAL CONTRAST, ACC: [id number], dated 2014-10-27 20:35:52 TECHNIQUE Pre and post gadolinium enhanced multiplanar MRI Abdomen FINDINGS Liver:Cirrhosis with bridging fibrosis and nodular contour. No steatosis. Observations include: -8.5 x 5.0 cm observation centered in segment 7. This is ill-defined with an infiltrative appearance, possibly extending into segment 6 (image 40 series 12 and image 40 series 16. This demonstrates heterogeneous late arterial hyperenhancement and heterogeneous delayed washout with a more focal areaof washout with enhancing capsule (image 45 series 16). Associated diffusion restriction. This is new from the prior exam. LR 5. -12 x 18 mm segment 3 arterial hyperenhancing nodule without definitive delayed washout or enhancing capsule, new (image 66 series 12). LR 3. Subcentimeter right hepatic lobe cyst, unchanged. Gallbladder/biliary tree: 18 mm gallstone in the gallbladder neck. The gallbladder wall is not thickened. No acute pericholecystic inflammatory changes. No intrahepatic or extrahepatic biliary ductaldilatation or choledocholithiasis is appreciated. Pancreas: Within normal limits. Spleen:Spleen measures 15.1 cm transversely. Adrenal glands: Within normal limits. Kidneys: Within normal limits. Bowel: No abnormal bowel distension. Lymph nodes:Portacaval lymphadenopathy, short axis measurement 15 mm, new from the prior exam. Thisis nonspecific with metastatic disease not excluded. Peritoneum/retroperitoneum: Trace perihepatic free fluid. Vessels: There is conventional anatomy of the celiac axis. Hepatic, portal, splenic, and superior mesenteric veins are patent without thrombosis. The right portal veins are attenuated, similar to theprior MRI. Small perisplenic varices are present. Abdominal wall/soft tissues: Within normal limits. Bones: Lumbar levoscoliosis. Degenerative changes are present in the spine. Lung bases: Within normal limits. IMPRESSION IMPRESSION Infiltrative appearing observation suspicious for hepatocellular [...] to suggest acute cholecystitis at this time. ASSESSMENT & PLAN: Neha is a 64 year old female with HCV- related cirrhosis and new finding of right liver 9 cm hepatocellular carcinoma with preserved liver function (BCLC B). She was discussed at tumor board and recommended for systemic therapy and Y- 90. We discussed the goals of radioembolization as well as how the procedure is performed. Risks including bleeding, vessel injury, non-target radiation, liver injury, residual and/or recurrent tumor were discussed. Neha would like to move forward with Y-90 radioembolization. She is unsure if she wants moderate sedation or general anesthesia. We will plan to place port after her Y-90. I spent a total of 30-39 minutes (exact time 35 mins) on the date of service in preparation, delivery, and documentation of the care provided to Neha Marks excluding any time spent in the performance of separately billed services or time spent by another provider/QHP. documented in this encounter Plan of Treatment Upcoming Encounters Date Type Department Care Team (Late st Contact Info) Description 02/25/2025 11:00 AM EDT Office Visit [address] [phone] Jay Gonzales MD [address] [place] [phone] Scheduled Orders Name Type Priority Associated Diagnoses Order Schedule IR CANCER SIR SPHERES EMBOLIZATION Medical Imaging Routine HCC (hepatocellular carcinoma) (HCC) Expected: 11/19/2024, Expires: 12/17/2025 IR ARTERIAL DIAGNOSTIC Medical Imaging Routine HCC (hepatocellular carcinoma) (HCC) Expected: 11/18/2024, Expires: 12/17/2025 NM FUSION LOCALIZATION SPECT/CT Medical Imaging Routine HCC (hepatocellular carcinoma) (HCC) Expected: 11/19/2024, Expires: 12/17/2025 NM LIVER SPECT Medical Imaging Routine HCC (hepatocellular carcinoma) (HCC) Expected: 11/18/2024, Expires: 12/17/2025 NM LIVER STATIC ONLY IMAGING Medical Imaging Routine HCC (hepatocellular carcinoma) (HCC) Expected: 11/19/2024, Expires: 12/17/[address] SINGLE AREA, SINGLE DAY Medical Imaging Routine HCC (hepatocellular carcinoma) (HCC) Expected: 11/19/2024, Expires: 12/17/2025 CT 3D RECONSTRUCTION BODY Medical Imaging Routine HCC (hepatocellular carcinoma) (HCC) Expected: 11/19/2024, Expires: 12/17/2025 Scheduled Procedures Name Priority Associated Diagnoses Date/Ti [...] primary documented in this encounter Care Teams Shingler Relationship Specialty Start Date End Date Jay Gonzales MD [address] [place] [phone] PCP - General Family Medicine 09/13/22 documented as of this encounter
--- OUTSIDE RECORDS SUMMARY | 2025-02-12 16:17 | External Medical Summary | Summary of Care ---
Author Name Unknown Organization [facility] Address [address] [facility] [place] [address] Phone [phone] Care Team Providers Care Tieing Machine Operator Name Role Phone Jay Gonzales MD Primary Care Provi syl Reason for Visit * Reason Comments eRx-Medication Refill Encounter Details Date Type Department Care Team ([facility] Contact Info) Description 11/14/2024 Refill Family [address] [phone] Jay Gonzales MD [address] [place] [phone] Mood disorder (HCC) Allergies No known active allergiesdocumented as of this encounter (statuses as of 11/15/2024) Medications Multiple Vitamins-Minera ls (CENTRUM ADULTS) TABS [...] chew. 50 Capsule 1 10/14/20 22 Active QUEtiapine Fumarate 25 MG Oral Tablet [...] NOT CUT, CRUSH OR CHEW (TAKE WITH 054=800TQ DAILY) 90 Capsule 1 11/15/19 25 Active Venlafaxine HCl ER 75 MG Oral Capsule Extended Release 24 Hour (Effexor XR)Indications: Mood disorder (HCC) TAKE 1 CAPSULE BY MOUTH DAILY. DO NOT CUT, CRUSH OR CHEW (TAKE WITH 639=392GO DAILY) 90 Capsule 08/17/20 24 025 Discontinued Venlafaxine HCl ER 150 MG Oral Capsule Extended Release 24 Hour (Effexor XR)Indications: Mood disorder (HCC) TAKE 1 CAPSULE BY MOUTH EVERY DAY DO NOT CUT, CRUSH, OR CHEW 90 Capsule 08/17/20 24 025 Discontinued documented as of this encounter [...] encounter Miscellaneous Notes * Telephone Encounter - Kemi Harman [facility] - 11/15/2024 10:09 AM EST Signed Prescriptions: Disp Refills Venlafaxine HCl ER 150 MG Oral Capsule Ext*90 Cap*1 Sig: TAKE 1 CAPSULE BY MOUTH EVERY DAY DO NOT CUT, CRUSH, OR CHEWAuthorizing Provider: JAY GONZALES User: KEMI HARMAN Venlafaxine HCl ER 75 MG Oral Capsule Exte*90 Cap*1 Sig: TAKE1 CAPSULE BY MOUTH DAILY. DO NOT CUT, CRUSH OR CHEW (TAKE WITH [id number] DAILY)Authorizing Provider: JAY GONZALES User: KEMI HARMAN documented in this encounter Plan of Treatment Upcoming Encounters Date Type Department Care Team (Late st Contact Info) Description 11/18/2024 2:30 PM EST Office Visit Radiology, [place] [address] [place] [address] Jay Kincaid MD [address] [place] [address] 02/25/2025 11:00 AM EDT Office Visit [address] [phone] Jay Gonzales MD [address] [place] [phone] Scheduled Procedures Name Priority Associated Diagnoses [...] as of this encounter Visit Diagnoses Diagnosis Mood disorder (HCC) Unspecified episodic mood disorder documented in this encounter Care Teams Tieing Machine Operator Relationship Specialty Start Date End Date Jay Gonzales MD [address] [place] [phone] PCP - General Family Medicine 09/13/22 documented as of this encounter
--- OUTSIDE RECORDS SUMMARY | 2025-02-12 16:17 | External Medical Summary ---
Author Name Unknown Address Unknown Organization K01:[facility] [address] [facility] [address] [facility] [address] Laboratory Report Ordering Provider Test Date Status GARRY URIARTE 11/30/2024 12:28:39 Final Observation Date Value Abnormality Reference (Units ) Status WBC, Total 11/30/2024 12:28:39 4.65 4.00-10.8 0 (K/uL) Final RBC 11/30/2024 12:28:39 4.23 3.85-5.15 (M/uL) Final Hemoglobin 11/30/2024 12:28:39 12.5 12.0-15.3 (g/dL) Final HCT 11/30/2024 12:28:39 39.9 36.0-45.2 (%) Final MCV 11/30/2024 12:28:39 94.3 81.5-97.5 (fL) Final MCH 11/30/2024 12:28:39 29.6 27.0-34.0 (pg) Final MCHC 11/30/2024 12:28:39 31.3 32.0-36.0 (g/dL) Final RDW 11/30/2024 12:28:39 14.9 11.5-15.5 (%) Final Platelets 11/30/2024 12:28:39 55 Below low normal 140 -400 (K/uL) Final MPV 11/30/2024 12:28:39 Final No result - abnormal platele t distribution. Nucleated erythrocytes/100 l eukocytes [Ratio] in Blood by Automated count 11/30/2024 12:28:39 0 <=0 (/100 WBCs) Final Performing Location [facility] [address] [place] [address]
--- OUTSIDE RECORDS SUMMARY | 2025-02-12 16:17 | External Medical Summary | Summary of Care ---
Author Name Unknown Organization [facility] Address [address] [facility] [place] [address] Phone [phone] Care Team Providers Care Predator Control Trapper Name Role Phone Jay Gonzales MD Primary Care Provi syl Encounter Details Date Type Department Care Team (Late st Contact Info) Description 10/11/2024 Orders Only PATIENT PORTAL DO NOT DELETE THIS DEPT USED BY ANDRES SHELDON [id number] Allergies No known active allergiesdocumented as of [...] on 10/10/2022 Benzonatate 100 MG Oral Capsule (Tessarah Naylor) Take 1 Capsule by mouth 3 times a day as needed for Cough. Do not cut, crush, or chew. 50 Capsule 1 2 Active Venlafaxine HCl ER 75 MG Oral Capsule Extended Release 24 Hour (Effexor XR)Indications:M ood disorder (HCC) TAKE 1 CAPSULE BY MOUTH DAILY. DO NOT CUT, CRUSH OR CHEW (TAKE WITH [id number]=271BP DAILY) 90 Capsule 4 Active Venlafaxine HCl [...] Upcoming Encounters Date Type Department Care Team ([facility] Contact Info) Description 02/25/2025 11:00 AM EDT Office Visit Family [address] [phone] Jay Gonzales MD [address] [place] [phone] Scheduled Procedures Name Priority Associated Diagnoses Date/Ti [...] 2024 DXA Scan 2024 GFR 08/23/2025 08/23/2024, /02/2023, 06/18/2022, Additional history exists Diabetes Screening 08/23/2027 [...] filedocumented as of this encounter Care Teams Predator Control Trapper Relationship Specialty Start Date End Date Jay Gonzales MD [address] [place] [address] [place] [phone] PCP - General Family Medicine 09/13/22 documented as of this encounter
--- OUTSIDE RECORDS SUMMARY | 2025-02-12 16:17 | External Medical Summary | Summary of Care ---
Author Name Unknown Organization [facility] Address [address] [facility] [address] Phone [phone] Care Team Providers Care Fibreglass Gun Hand Name Role Phone Jay Gonzales MD Primary Care Provi [facility] Encounter Details Date Type Department Care Team (Late st Contact Info) Description 11/12/2024 Telephone Hematology/Oncology [facility] [address] [place] [phone] Tunde Plunkett MD [address] [place] [address] Allergies No known active allergiesdocumented as of this encounter (statuses as of 11/12/2024) Medications Multiple Vitamins-Mineral s (CENTRUM ADULTS) TABS [...] on 10/10/2022 Benzonatate 100 MG Oral Capsule (Tessalino Naylor) Take 1 Capsule by mouth 3 times a day as needed for Cough. Do not cut, crush, or chew. 50 Capsule 1 2 Active Venlafaxine HCl ER 75 MG Oral Capsule Extended Release 24 Hour (Effexor XR)Indications:M ood disorder (HCC) TAKE 1 CAPSULE BY MOUTH DAILY. 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) 08/20/2024 Major depressive disorder with single episode HTN, goal below 130/80 04/03/2023 Wears dentures 04/18/2021 Thrombocytopenia 08/18/2020 Portal hypertension 06/09/2019 Mood disorder 02/16/2018 Other cirrhosis of liver 09/14/2009 Menopause 09/11/2009 Overview (09/11/2009): Age 46 Generalized anxiety disorder 07/03/2009 documented as of this encounter (statuses as of 11/12/2024) Resolved Problems Problem Noted Date Diagnosed Date Resolved Date OTHER 11/15/2009 08/20/2018 Overview (11/20/2009): Genotype 1a Chronic hepatitis C 09/21/2009 08/20/20 18 documented as of this encounter (statuses as of 11/12/2024) Immunizations Name Administration Dates Next Due TDAP, [...] Telephone Encounter - Gaby Urena OSA - 11/12/2024 1:13 PM EST IR VENOUS ACCESS MEDIPORT [IRMEDIPORT] (Order [id number]) UPPER GI ENDOSCOPY [[id number]] (Order [id number]) documented in this encounter Plan of Treatment Upcoming Encounters Date Type Department Care Team (Late st Contact Info) Description 11/18/2024 2:30 PM EST Office Visit Radiology, [place] [address] [place] [address] Jay Kincaid MD [address] [place] [address] 02/25/2025 11:00 AM EDT Office Visit [address] [phone] Jay Gonzales MD [address] [place] [phone] Scheduled Procedures Name Priority Associated Diagnoses [...] filedocumented as of this encounter Care Teams Fibreglass Gun Hand Relationship Specialty Start Date End Date Jay Gonzales MD [address] [place] [phone] PCP - General Family Medicine 09/13/22 documented as of this encounter
--- OUTSIDE RECORDS SUMMARY | 2025-02-12 16:17 | External Medical Summary ---
Author Name Unknown Address Unknown Organization K01:LABORATORY [facility] [place] - [address] [place] [address] Laboratory Report Ordering Provider Test Date Status BABAK FRANKLIN 10/11/2024 12:20:40 Final Observation Date Value Abnormality Reference (Units ) Status Alpha-Fetoprotein 10/11/2024 12:20:40 678.6 Above high normal 0.0-8.3 (ng/mL) Final Performing Location LABORATORY C - [address] [place] [address]
--- OUTSIDE RECORDS SUMMARY | 2025-02-12 16:17 | External Medical Summary | Summary of Care ---
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 Do not cut, crush, or chew. 50 Capsule 1 2 Active Venlafaxine HCl ER 75 MG Oral Capsule Extended Release 24 Hour (Effexor XR)Indications: Mood disorder (HCC) TAKE 1 CAPSULE BY MOUTH DAILY. DO NOT CUT, CRUSH OR CHEW (TAKE WITH [id number] DAILY) 90 Capsule 4 Active Venlafaxine HCl [...] evening meals. 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 90 Tablet 3 4 024 Discontin ued(Refil l) documented as of this encounter (statuses as of 09/14/2024) Active Problems Problem Noted Date Diagnosed Date 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) 08/20/2024 Major depressive disorder with single episode HTN, goal below 130/80 04/03/2023 Wears dentures 04/18/2021 Thrombocytopenia 08/18/2020 Portal hypertension 06/09/2019 Mood disorder 02/16/2018 Other cirrhosis of liver 09/14/2009 Menopause 09/11/2009 Overview (09/11/2009): Age 46 Generalized anxiety disorder 07/03/2009 documented as of this encounter (statuses as of 09/14/2024) Resolved Problems Problem Noted Date Diagnosed Date Resolved Date OTHER 11/15/2009 08/20/2018 Overview (11/20/2009): Genotype 1a Chronic hepatitis C 09/21/2009 08/20/20 18 documented as of this encounter (statuses as of 09/14/2024) Immunizations Name Administration Dates Next Due TDAP, [...] encounter Miscellaneous Notes * Telephone Encounter - Kayla Rubalcava MD - 09/14/2024 11:04 AM ESTSigned Prescriptions: Disp Refills Carvedilol 6.25 MG Oral Tablet (Coreg) 90 Tab*3 Sig: Take 1 Tablet by mouth 2 times a day with morning and evening meals. Authorizing Provider: KAYLA RUBALCAVA * Telephone Encounter - Claudia Aly LPN - 09/14/2024 9:19 AM EST Please review and refill pts Carvedilol documented in this encounter Plan of Treatment Upcoming Encounters Date Type Department Care Team (Late st Contact Info) Description 09/27/2024 10:00 AM EST Appointment Radiology, [place] [id number] [place] [address] 10/07/2024 3:40 PM EST [facility] [address] [place] [address] Red Marcum, [address] [place] [address] 02/25/2025 11:00 AM EDT Office Visit Family [address] [phone] Jay Gonzales MD [address] [place] [phone] Scheduled Procedures Name Priority Associated Diagnoses Date/Ti [...] 2024 DXA Scan 2024 GFR 08/23/2025 08/23/2024, 05/2 02/2023, 06/18/2022, Additional history exists Diabetes Screening 08/23/2027 [...] hepatitis C without mention of hepatic coma Secondary esophageal varices without bleeding (HCC) Esophageal varices without mention of bleeding in diseases classified elsewhere documented in this encounter Care Teams Belt Repairer Relationship Specialty Start Date End Date Jay Gonzales MD [address] [place] [phone] PCP - General Family Medicine 09/13/22 documented as of this encounter
--- OUTSIDE RECORDS SUMMARY | 2025-02-12 16:17 | External Medical Summary | Summary of Care ---
Author Name Unknown Organization [facility] Address [address] [facility] [place] [address] Phone [phone] Care Team Providers Care Timber Bucker Name Role Phone Jay Gonzales MD Primary Care Provi [facility] Reason for Visit * Reason Comments Acute Patient presents for abnormal bowel movements that have been ongoing for last few months- says this occurs anytime that she eats, feels nausea, immediately defecates (explosive, liquid.), denies abdominal pain but admits bloating; pt daughter concerns over implications of liver problems (gallstones as well) with this. Patient also having unbearable shoulder pain (superior to deltoid, inferior to axillary). Encounter Details Date Type Department Care Team ([facility] Contact Info) Description 11/30/2024 11:40 AM EST Office Visit [address] [phone] Jay Gonzales MD [address] [place] [phone] Diarrhea, unspecified type*; Chronic right shoulder pain Allergies No known [...] NOT CUT, CRUSH OR CHEW (TAKE WITH [id number] DAILY) 90 Capsule 1 5 Active tiZANidine [...] Sign Reading Time Taken Comments Blood Pressure 110/58 11/30/2024 11:38 AM EST Pulse 83 11/30/2024 11:38 AM EST Temperature 36.8 °C (98.2 °F) 11/30/2024 11:[address] Respiratory Rate - - Oxygen Saturation 96% 11/30/2024 11:38 AM EST Inhaled Oxygen Concentration - - Weight 73.7 kg (162 lb 6.4 oz) 11/30/2024 11:38 AM EST Height - - Body Mass Index 29 11/12/2024 11:53 AM EST documented in this encounter Progress Notes * Jay Gonzales MD - 11/30/2024 11:54 AM EST Images from the original note were not included. History of Present Illness Neha Marks is a 64 year old female that presents for Acute (Patient presents for abnormal bowel movements that have been ongoing for last few months- says this occurs anytime that she eats, feels nausea, immediately defecates (explosive, liquid.), denies abdominal pain but admits bloating; pt ysabel pulido concerns over implications of liver problems (gallstones as well) with this. Patient also having unbearable shoulder pain (superior to deltoid, inferior to axillary).) 64-year-old presenting today with concerns for diarrhea, ongoing for the past couple months Patient has new diagnosis of HCC, in the setting of treated hepatitis-C and liver cirrhosis. Has daily explosive diarrhea Also complaining of right shoulder pain, which was thought to be possibly referred pain in the setting of hepatocellular carcinoma. She is however having pain with palpation of the trapezius muscles and movement of her right shoulder. Also complaining today of anxiety symptoms, chronic. She is on Effexor. Physical Exam Vitals: 11/30/24 1138 Temp: 98.2 °F (36.8 °C) Pulse: 83 SpO2: 96% BP: 110/58 BP Readings from Last 3 Encounters: 11/30/24 110/58 11/18/24 144/70 11/12/24 138/84 Wt Readings from Last 3 Encounters: 11/30/24 162 lb 6.4 oz (73.7 kg) 11/12/24 164 lb 4.8 oz (74.5 kg) 08/20/24 170 lb (77.1 kg) BMI Readings from Last 3 Encounters: 11/30/24 29.00 kg/m² 11/12/24 29.34 kg/m² 08/20/24 30.11 kg/m² Ht Readings from Last 3 Encounters: 11/12/24 5' 2.75" (1.594 m) 08/20/24 5' 3" (1.6 m) 06/18/22 5' 3" (1.6 m) General; Normal cephalic, atraumatic Cardiology; Regular rate and rhythm, normal S1 S2, no murmurs, rubs or gallops, no peripheral edema Pulmonary; Clear to auscultation bilaterally, no rales, rhonchi or wheezing Neuro/psych; CN grossly intact, normal gait, answering questions appropriately, normal mood/affect I have reviewed the following results: CMP and CBC Assessment and Plan Diarrhea, unspecified type (Primary) - FECAL LACTOFERRIN, EIA; Future; Expected date: 11/30/2024 - REGIONAL PARASITE ANTIGEN SCREEN; Future; Expected date: 11/30/2024 - CLOSTRIDIUM DIFFICILE, PCR; Future; Expected date: 11/30/2024 - COMPREHENSIVE METABOLIC PANEL; Future; Expected date: 11/30/2024 - CBC WITH WBC DIFFERENTIAL; Future; Expected date: 11/30/2024 Chronic right shoulder pain - tiZANidine HCl 2 MG Oral Tablet (Zanaflex); Take 1 Tablet by mouth at bedtime as needed for Muscle spasms. Other orders - Gabapentin 100 MG Oral Capsule (Neurontin); Take 1 Capsule by mouth in the morning and 1 Capsule at noon and 1 Capsule before bedtime. Slowly increase the dose over 3 weeks--Start with one capsule in the evening for the first week. Add the afternoon dose on week 2 and the morning dose on week 3.. Follow Up: Return in about 2 weeks (around 12/14/2024) for Return with Physician. | For: Return withPhysician For her pain symptoms and anxiety, we will start the patient on low-dose gabapentin as it is not hepatically cleared. She will slowly increased over the next 3 weeks to 100 mg three times daily. Morego on slow as the patient describes history of medication sensitivity. She does have some hypertonicity in the right trapezius tenderness with palpation of the trapezius.I do think that while she this could be referred shoulder pain, it also is musculoskeletal. She will do a trial with q.h.s. low- dose tizanidine to see if that helps with her symptoms. I would like the patient to follow up with me in short interval 4 weeks considering her complexity. Wrap-Up Time: I spent a total of 30-39 minutes (exact time 35 mins) on the date of service in preparation, delivery, and documentation of the care provided to Neha Marks excluding any time spent in the performance of separately billed services. documented in this encounter Nursing Notes * Gene Pena CMA - 11/30/2024 11:40 AM EST The patient has been properly identified by confirmation of name and date of . Chief Complaint Patient presents with Acute Patient presents for abnormal bowel movements that have been ongoing for last few months- says thisoccurs anytime that she eats, immediately defecates (explosive, liquid.), denies abdominal pain butadmits bloating; pt daughter concerns over implications of liver problems (gallstones as well) withthis. Patient also having unbearable shoulder pain (superior to deltoid, inferior to axillary). documented in this encounter Plan of Treatment Upcoming Encounters Date Type Department Care Team (Late st Contact Info) Description 12/28/2024 3:00 PM EDT Office Visit [address] [phone] Casie Liang MD [address] [place] [phone] 01/03/2025 8:30 AM EDT Appointment Interventional Radiology [facility], [place] 1[address] [place] [facility] [place] [phone] 01/14/2025 8:30 AM EDT Appointment Interventional Radiology [facility], [facility] 1[address] [place] [facility] [place] [place] [address] 02/25/2025 11:00 AM EDT Office Visit Family [facility] [address] [place] [phone] Jay Gonzales MD [address] [place] [phone] Pending Results Name Type Priority Associated Diagnoses Date /Time FECAL LACTOFERRIN, EIA Lab Routine Diarrhea, unspecified type 11/30/2024 4:52 PM EST REGIONAL PARASITE ANTIGEN SCREEN Lab Routine Diarrhea, unspecified type 11/30/2024 4:52 PM EST CLOSTRIDIUM DIFFICILE, PCR Lab Routine Diarrhea, unspecified type 11/30/2024 4:52 PM EST COMPREHENSIVE METABOLIC PANEL Lab Routine Diarrhea, unspecified type 11/30/2024 12:28 PM EST CBC WITH WBC DIFFERENTIAL Lab Routine Diarrhea, unspecified type 11/30/2024 12:28 PM EST Scheduled Orders Name Type Priority Associated Diagnoses Orde r Schedule FECAL LACTOFERRIN, EIA Lab Routine Diarrhea, unspecified type Expected: 11/30/2024 (Approximate), Expires: 12/14/2024 REGIONAL PARASITE ANTIGEN SCREEN Lab Routine Diarrhea, unspecified type Expected: 11/30/2024 (Approximate), Expires: 12/14/2024 CLOSTRIDIUM DIFFICILE, PCR Lab Routine Diarrhea, unspecified type Expected: 11/30/2024 (Approximate), Expires: 12/14/2024 COMPREHENSIVE METABOLIC PANEL Lab Routine Diarrhea, unspecified type Expected: 11/30/2024 (Approximate), Expires: 11/30/2025 CBC WITH WBC DIFFERENTIAL Lab Routine Diarrhea, unspecified type Expected: 11/30/2024 (Approximate), Expires: 11/30/2025 Scheduled Procedures Name Priority Associated Diagnoses Date/Ti [...] this encounter Visit Diagnoses Diagnosis Diarrhea, unspecified type- Primary Chronic right shoulder pain Pain in joint, shoulder region documented in this encounter Care Teams Timber Bucker Relationship Specialty Start Date End Date Jay Gonzales MD [address] [place] [phone] PCP - General Family Medicine 09/13/22 documented as of this encounter
--- OUTSIDE RECORDS SUMMARY | 2025-02-12 16:17 | External Medical Summary ---
Author Name Unknown Address Unknown Organization K01:LABORATORY [place] [address] [facility] [address] Laboratory Report Ordering Provider Test Date Status GARRY URIARTE 11/30/2024 16:52:07 Final Observation Date Value Abnormality Reference (Units) Status Source 11/30/2024 16:52:07 Semi-liquid Final Clostridioides difficile toxin and BI-NAP1-027 strain DNA panel - Stool by AUGUST with probe detection 11/30/2024 16:52:07 Positive for C. difficile toxin B gene DNA by PCR (Amplified Probe). Presumptive negative for C. difficile 027-NAP1-B1 strain by PCR (Amplified Probe). Abnormal Negative Final Performing Location [facility] [place] [address] [facility] [facility] [address]
--- OUTSIDE RECORDS SUMMARY | 2025-02-12 16:17 | External Medical Summary | Summary of Care ---
Author Name Unknown Organization [facility] Address [address] [place] [address] Phone [phone] Care Team Providers Care Cto Name Role Phone Jay Gonzales MD Primary Care Provi syl Reason for Referral * Ancillary Services (Within 3 days (urgent)) - Authorized Specialty Diagnoses / Procedures Referred By Contact Referred To Contact Interventional Radiology / Radiology Diagnoses HCC (hepatocellular carcinoma) (HCC) Red Marcum DO [address] [place] [address] Phone: tel: fax: Referral ID Status Reason Start Date Expiration Date Visits Requested Visits Authorized [id number] Authorized Ancillary Services Required 11/03/2024 [id number] Question Answer Referral Priority Within 3 days (urgent) Where should this appointment be scheduled? ising Where Will The Procedure Be Performed? [facility] Comments Please enter the reason for consult: discussed at HCC tumor board 11/03. Y90 radiation segmentectomy Are outside images available?: Yes - Images available in Epic * Evaluate & Treat - Unlimited Visits (Within 3 days (urgent)) - Authorized Specialty Diagnoses / Procedures Referred By Contac t Referred To Contact Hematology/Oncology / Hematology Oncology Diagnoses HCC (hepatocellular carcinoma) (HCC) Red Marcum DO [address] [place] [address] Phone: tel: fax: Referral ID Status Reason Start Date Expiration Date Visits Requested Visits Authorized [id number] Authorized Specialty Services Required 11/03/2024 [id number] Question Answer Referral Priority Within 3 days (urgent) Where should this appointment be scheduled? [facility] Reason for Referral Malignant Oncology (Solid Organ Cancer) Comments HCC. Discussed at [facility] tumor board 11/03. Will also be referred to IR for Y90 segmentectomy Encounter Details Date Type Department Care Team (Late st Contact Info) Description 11/03/2024 Telephone Gastroenterology, [place] [address] [place] [address] Red Marcum DO [address] [place], [place] [phone] Allergies No known active allergiesdocumented as of this encounter (statuses as of 11/03/2024) Medications Multiple Vitamins-Mineral s (CENTRUM ADULTS) TABS [...] NOT CUT, CRUSH OR CHEW (TAKE WITH [id number] DAILY) 90 Capsule 4 Active Venlafaxine HCl [...] as of this encounter (statuses as of 11/03/2024) Active Problems Problem Noted Date Diagnosed Date 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) 08/20/2024 Major depressive disorder with single episode HTN, goal below 130/80 04/03/2023 Wears dentures 04/18/2021 Thrombocytopenia 08/18/2020 Portal hypertension 06/09/2019 Mood disorder 02/16/2018 Other cirrhosis of liver 09/14/2009 Menopause 09/11/2009 Overview (09/11/2009): Age 46 Generalized anxiety disorder 07/03/2009 documented as of this encounter (statuses as of 11/03/2024) Resolved Problems Problem Noted Date Diagnosed Date Resolved Date OTHER 11/15/2009 08/20/2018 Overview (11/20/2009): Genotype 1a Chronic hepatitis C 09/21/2009 08/20/20 18 documented as of this encounter (statuses as of 11/03/2024) Immunizations Name Administration Dates Next Due TDAP, [...] encounter Miscellaneous Notes * Telephone Encounter - Red Marcum DO - 11/03/2024 5:00 PM EST Patient was discussed at HCC tumor board on 11/03. IR recommends radiation segmentectomy (y90) with referral to medical oncology for combination systemic therapy. Called patient to discuss. Referrals placed. Red Marcum DO Gastroenterology and Hepatology Fellow documented in this encounter Plan of Treatment Upcoming Encounters Date Type Department Care Team ([facility] st Contact Info) Description 02/25/2025 11:00 AM EDT Office Visit [address] [phone] Jay Gonzales MD [address] [place] [phone] Scheduled Procedures Name Priority Associated Diagnoses Date/Ti me COLONOSCOPY FLEXIBLE PROXIMA L DIAGNOSTIC Recall Personal history of colonic polyps Scheduled Referrals Name Type Priority Associated Diagnoses Order Schedule HEMATOLOGY/ONCOLOGY REFERRAL OP Referral Within 3 days (urgent) HCC (hepatocellular carcinoma) (HCC) Ordered: 11/03/2024 INTERVENTIONAL RADIOLOGY REFERRAL OP Referral Within 3 days (urgent) HCC (hepatocellular carcinoma) (HCC) Ordered: 11/03/2024 Health Maintenance Due Date Last Done Comments [...] primary documented in this encounter Care Teams Cto Relationship Specialty Start Date End Date Jay Gonzales MD [address] [place] [phone] PCP - General Family Medicine 09/13/22 documented as of this encounter
--- OUTSIDE RECORDS SUMMARY | 2025-02-12 16:17 | External Medical Summary ---
Author Name Unknown Address Unknown Organization K01:[place] [facility] [place] [address] [facility] [address] Laboratory Report Ordering Provider Test Date Status GARRY URIARTE 11/30/2024 12:28:39 Final Observation Date Value Abnormality Reference (Units ) Status SYNC LEUKOCYTES IN BLOOD BY AUTOMATED COUNT 11/30/2024 12:28:39 4.65 4.00-10.80 (K/uL) Final Segs 11/30/2024 12:28:39 74.7 40.0-75.0 (%) Final Lymphs % 11/30/2024 12:28:39 10.1 Below low normal 18.0-42.0 (%) Final Monos 11/30/2024 12:28:39 12.5 Above high normal 1.0-11.0 (%) Final Eosinophils 11/30/2024 12:28:39 1.9 0.0-6.0 (%) Final Basos 11/30/2024 12:28:39 0.4 0.0-2.0 (%) Final Immature Granulocyte, Percent 11/30/2024 12:28:39 0.4 0.0-2.0 (%) Final Absolute Segs 11/30/2024 12:28:39 3.47 1.80-7.70 (K/uL) Final Lymphs, absolute 11/30/2024 12:28:39 0.47 Below low normal 1.00-4.80 (K/ul) Final Monos, Abs 11/30/2024 12:28:39 0.58 0.00-1.10 (K/uL) Final Eos, Abs 11/30/2024 12:28:39 0.09 0.00-0.70 (K/uL) Final Basos, Abs 11/30/2024 12:28:39 0.02 0.00-0.20 (K/uL) Final Immature Granulocytes, Number 11/30/2024 12:28:39 0.02 0.00-0.20 (K/uL) Final Performing Location [facility] [place] [address] [facility] [address]
--- OUTSIDE RECORDS SUMMARY | 2025-02-12 16:17 | External Medical Summary ---
Author Name Unknown Address Unknown Organization [id number]:[facility] [place] - [address] [place] [address] Laboratory Report Ordering Provider Test Date Status BABAK FRANKLIN 10/11/2024 12:20:40 Final Observation Date Value Abnormality Reference (Units ) Status BUN 10/11/2024 12:20:40 8 6-20 (mg/dL) Final Creatinine 10/11/2024 12:20:40 0.6 0.5-1.0 (mg/dL) Final Glomerular filtration rate/1.73 sq M.predicted [Volume Rate/Area] in Serum, Plasma or Blood by Creatinine-based formula (CKD-EPI) 10/11/2024 12:20:40 >90 >=60 (mL/min) Final eGFR is calculated based on the CKD-EPI 2020 equation. Sodium 10/11/2024 12:20:40 139 135-146 (m mol/L) Final Potassium 10/11/2024 12:20:40 3.3 Below low normal 3.5 -5.1 (mmol/L) Final Cl 10/11/2024 12:20:40 100 98-107 (mm ol/L) Final CO2 10/11/2024 12:20:40 27 22-32 (mmo l/L) Final Anion gap 10/11/2024 12:20:40 12 7-15 (mmol /L) Final Glucose 10/11/2024 12:20:40 342 Above high normal 70 -120 (mg/dL) Final Albumin 10/11/2024 12:20:40 3.9 3.8-5.0 (g /dL) Final AST (Aspartate aminotransferase) 10/11/2024 12:20:40 98 Above high normal 10-35 (U/L) Final Alk Phos 10/11/2024 12:20:40 370 Above high normal 35 -130 (U/L) Final Bilirubin, Total 10/11/2024 12:20:40 0.9 <=1 .2 (mg/dL) Final Calcium 10/11/2024 12:20:40 9.1 8.4-10.2 ( mg/dL) Final Protein 10/11/2024 12:20:40 6.4 6.0-8.3 (g /dL) Final ALT (Alanine aminotransferase) 10/11/2024 12:20:40 40 Above high normal 10-35 (U/L) Final Performing Location [facility] - [address] [facility] [address]
--- OUTSIDE RECORDS SUMMARY | 2025-02-12 16:17 | External Medical Summary | Summary of Care ---
Author Name Unknown Organization [facility] Address [address] [place] [address] Phone [phone] Care Team Providers Care Qa Automation Architect Name Role Phone Jay Gonzales MD Primary Care Pro[facility] Encounter Details Date Type Department Care Team ([facility] Contact Info) Description 09/29/2024 Telephone Family Practice [facility] [address] [place] [address] Jay Gonzales MD [address] [place] [phone] Allergies No known active allergiesdocumented as of this encounter (statuses as of 10/01/2024) Medications Multiple Vitamins-Mineral s (CENTRUM ADULTS) TABS [...] NOT CUT, CRUSH OR CHEW (TAKE WITH 489=113AS DAILY) 90 Capsule 4 Active Venlafaxine HCl [...] as of this encounter (statuses as of 10/01/2024) Active Problems Problem Noted Date Diagnosed Date 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) 08/20/2024 Major depressive disorder with single episode HTN, goal below 130/80 04/03/2023 Wears dentures 04/18/2021 Thrombocytopenia 08/18/2020 Portal hypertension 06/09/2019 Mood disorder 02/16/2018 Other cirrhosis of liver 09/14/2009 Menopause 09/11/2009 Overview (09/11/2009): Age 46 Generalized anxiety disorder 07/03/2009 documented as of this encounter (statuses as of 10/01/2024) Resolved Problems Problem Noted Date Diagnosed Date Resolved Date OTHER 11/15/2009 08/20/2018 Overview (11/20/2009): Genotype 1a Chronic hepatitis C 09/21/2009 08/20/20 18 documented as of this encounter (statuses as of 10/01/2024) Immunizations Name Administration Dates Next Due TDAP, [...] Telephone Encounter - Jay Gonzales MD - 10/01/2024 2:07 PM EST Spoke with patient today on the phone about MRI results, voicing concerns for HCC No significant symptoms, slight RUQ pain, but tolerable Pt worried, but no significant symptoms of anxiety or insomnia Stressed importance of upcoming visit with hepatology. * Telephone Encounter - Jay Gonzales MD - 09/29/2024 9:30 AM EST I attempted to call the patient X 2 regarding MRI result, concerns for HCC. Pt has appointment withhepatology on 10/07/24. Copying Dr. Jossue Gardner message sent to the patient Pt does not have voicemail set up. I'm out of the office today, but Please TIGER text or teams me if patient calls back and would liketo discuss today. Otherwise, I can call her tomorrow. documented in this encounter Plan of Treatment Upcoming Encounters Date Type Department Care Team (Late st Contact Info) Description 10/07/2024 3:40 PM EST [facility] [place] [address] [place] [address] Red Marcum, [address] [place] [address] 02/25/2025 11:00 AM EDT Office Visit Family [address] [phone] Jay Gonzales MD [address] [place] [phone] Scheduled Procedures Name Priority Associated Diagnoses [...] filedocumented as of this encounter Care Teams Qa Automation Architect Relationship Specialty Start Date End Date Jay Gonzales MD [address] [place] [phone] PCP - General Family Medicine 09/13/22 documented as of this encounter
--- OUTSIDE RECORDS SUMMARY | 2025-02-12 16:17 | External Medical Summary ---
Author Name Unknown Address Unknown Organization K01:[facility] [place] - [address] [facility] [address] Laboratory Report Ordering Provider Test Date Status GARRY URIARTE 11/30/2024 16:52:40 Final Observation Date Value Abnormality Reference (Units ) Status Lactoferrin [Presence] in Stool 11/30/2024 16:52:40 Positive Abnormal Negative Final Performing Location LABORATORY C - [address] [facility] [address]
--- OUTSIDE RECORDS SUMMARY | 2025-02-12 16:17 | External Medical Summary | Summary of Care ---
Author Name Unknown Organization [facility] Address [address] [place] [address] Phone [phone] Care Team Providers Care Plating Inspector Name Role Phone Jay Gonzales MD Primary Care Provi [facility] Encounter Details Date Type Department Care Team ([facility] Contact Info) Description 09/29/2024 Telephone Family Practice [facility] [address] [place] [phone] Jay Gonzales MD [address] [place] [phone] Allergies No known active allergiesdocumented as of this encounter (statuses as of 09/29/2024) Medications Multiple Vitamins-Mineral s (CENTRUM ADULTS) TABS [...] NOT CUT, CRUSH OR CHEW (TAKE WITH 586=960YS DAILY) 90 Capsule 4 Active Venlafaxine HCl [...] as of this encounter (statuses as of 09/29/2024) Active Problems Problem Noted Date Diagnosed Date 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) 08/20/2024 Major depressive disorder with single episode HTN, goal below 130/80 04/03/2023 Wears dentures 04/18/2021 Thrombocytopenia 08/18/2020 Portal hypertension 06/09/2019 Mood disorder 02/16/2018 Other cirrhosis of liver 09/14/2009 Menopause 09/11/2009 Overview (09/11/2009): Age 46 Generalized anxiety disorder 07/03/2009 documented as of this encounter (statuses as of 09/29/2024) Resolved Problems Problem Noted Date Diagnosed Date Resolved Date OTHER 11/15/2009 08/20/2018 Overview (11/20/2009): Genotype 1a Chronic hepatitis C 09/21/2009 08/20/20 18 documented as of this encounter (statuses as of 09/29/2024) Immunizations Name Administration Dates Next Due TDAP, [...] Encounters Date Type Department Care Team ([facility] st Contact Info) Description 10/07/2024 3:40 PM EST Telemedicine Hepatology, [place] [address] [place] [address] Red Marcum, [address] [place] [address] 02/25/2025 11:00 AM EDT Office Visit [facility] [address] [place] [phone] Jay Gonzales MD [address] [place] [phone] Scheduled Procedures Name Priority Associated Diagnoses [...] filedocumented as of this encounter Care Teams Plating Inspector Relationship Specialty Start Date End Date Jay Gonzales MD [address] [place] [phone] PCP - General Family Medicine 09/13/22 documented as of this encounter
--- OUTSIDE RECORDS SUMMARY | 2025-02-12 16:17 | External Medical Summary ---
Author Name Unknown Address Unknown Organization K01:[facility] [place] [place] [facility] [address] [facility] [address] [facility] [address] Laboratory Report Ordering Provider Test Date Status BABAK FRANKLIN 10/11/2024 12:20:40 Final Observation Date Value Abnormality Reference (Units ) Status WBC, Total 10/11/2024 12:20:40 4.70 4.00-10.80 (K/uL) Final RBC 10/11/2024 12:20:40 4.25 3.85-5.15 (M/uL) Final Hemoglobin 10/11/2024 12:20:40 12.3 12.0-15.3 (g/dL) Final HCT 10/11/2024 12:20:40 40.1 36.0-45.2 (%) Final MCV 10/11/2024 12:20:40 94.4 81.5-97.5 (fL) Final MCH 10/11/2024 12:20:40 28.9 27.0-34.0 (pg) Final MCHC 10/11/2024 12:20:40 30.7 32.0-36.0 (g/dL) Final RDW 10/11/2024 12:20:40 14.6 11.5-15.5 (%) Final Platelets 10/11/2024 12:20:40 57 Below low normal 140-400 (K/uL) Final MPV 10/11/2024 12:20:40 13.6 6.6-11.1 (fL) Final Nucleated erythrocytes/100 leukocytes [Ratio] in Blood by Automated count 10/11/2024 12:20:40 0 <=0 (/100 WBCs) Final Performing Location [facility] [place] [place] [address] [place] [address]
--- OUTSIDE RECORDS SUMMARY | 2025-02-12 16:17 | External Medical Summary | Summary of Care ---
Author Name Unknown Organization [facility] Address [address] [facility] [place] [address] Phone [phone] Care Team Providers Care Net Wpf Developer Name Role Phone Jay Gonzales MD Primary Care Provi syl Reason for Referral * Precert (Within 10 days (routine)) - Authorized Specialty Diagnoses / Procedures Referred By Vaibhav roldan Referred To Contact Radiology Diagnoses Liver lesion Procedures MRI LIVER W WO CONTRAST Jay Gonzales MD [address] [place] [phone] Phone: tel: fax: Referral ID Status Reason Start Date Expiration Date V isits Requested Visits Authorized [id number] Authorized 09/09/2024 999 999 Reason for Visit * Precert (Within 10 days (routine)) - Authorized Specialty Diagnoses / Procedures Referred By Vaibhav roldan Referred To Contact Radiology Diagnoses Liver lesion Procedures MRI LIVER W WO CONTRAST Jay Gonzales MD [address] [place] [address] Phone: tel: fax: Referral ID Status Reason Start Date Expiration Date V isits Requested Visits Authorized [id number] Authorized 09/09/2024 999 999 Encounter Details Date Type Department Care Team (Latest Contact Info) Description 09/27/2024 9:24 AM EST - 09/27/2024 11:59 PM EST Hospital En[facility] [place] [address] Arrived Discharge Disposition: Home - Self Care Allergies No known active allergiesdocumented as of this encounter (statuses as of 09/28/2024) Medications Multiple Vitamins-Mineral s (CENTRUM ADULTS) TABS [...] 10/10/2022 Benzonatate 100 MG Oral Capsule (Tessalon Dayday) Take 1 Capsule by mouth 3 times a day as needed for Cough. Do not cut, crush, or chew. 50 Capsule 1 2 Active Venlafaxine HCl ER 75 MG Oral Capsule Extended Release 24 Hour (Effexor XR)Indications:M ood disorder (HCC) TAKE 1 CAPSULE BY MOUTH DAILY. 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) 08/20/2024 Major depressive disorder with single episode HTN, goal below 130/80 04/03/2023 Wears dentures 04/18/2021 Thrombocytopenia 08/18/2020 Portal hypertension 06/09/2019 Mood disorder 02/16/2018 Other cirrhosis of liver 09/14/2009 Menopause 09/11/2009 Overview (09/11/2009): Age 46 Generalized anxiety disorder 07/03/2009 documented as of this encounter (statuses as of 09/28/2024) Resolved Problems Problem Noted Date Diagnosed Date Resolved Date OTHER 11/15/2009 08/20/2018 Overview (11/20/2009): Genotype 1a Chronic hepatitis C 09/21/2009 08/20/20 18 documented as of this encounter (statuses as of 09/28/2024) Immunizations Name Administration Dates Next Due TDAP, [...] Description 10/07/2024 3:40 PM EST Telemedicine Hepatology, [place] [address] [place] [address] Red Marcum [address] [place] [address] 02/25/2025 11:00 AM EDT Office Visit Family [address] [phone] Jay Gonzales MD [address] [place] [phone] Scheduled Procedures Name Priority Associated Diagnoses [...] Procedure Name Priority Date/Time Associated Diagnosis Comments MRI LIVER W WO CONTRAST Routine 09/27/2024 10:09 AM EST Liver lesion documented in this encounter Results * MRI LIVER W WO CONTRAST (09/27/2024 10:09 AM EST) Anatomical Region Laterality Modality Abdomen Magnetic Resonan ce 09/27/2024 1:23 PM EST Impressions 09/27/2024 1:21 PM EST IMPRESSION Infiltrative appearing observation suspicious for hepatocellular [...] to suggest acute cholecystitis at this time. Narrative 09/27/2024 1:21 PM EST EXAM MRI LIVER W WO CONTRAST-09/27/2024 10:09 am HISTORY liver lesion on ultrasound COMPARISON US ABDOMEN LIMITED, ACC: [id number], dated 2024-09-06 09:53:59; MRI LIVER W WO CONTRAST, ACC: [id number], dated 2021-06-05 09:40:27; CT ABD_PELVIS W IV AND W ORAL CONTRAST, ACC: [id number], dated 2014-10-27 20:35:52 TECHNIQUE Pre and post [...] heterogeneous delayed washout with a more focal area of washout with enhancing capsule (image 45 series [...] inflammatory changes. No intrahepatic or extrahepatic biliary ductal dilatation or choledocholithiasis is appreciated. Pancreas: Within normal limits. Spleen:Spleen measures 15.1 cm transversely. Adrenal glands: Within normal limits. Kidneys: Within normal limits. Bowel: No abnormal bowel distension. Lymph nodes:Portacaval lymphadenopathy, short axis measurement 15 mm, new from the prior exam. This is nonspecific with metastatic disease not excluded. Peritoneum/retroperitoneum: Trace perihepatic free fluid. Vessels: There is conventional anatomy of the celiac axis. Hepatic, portal, splenic, and superior mesenteric veins are patent without thrombosis. The right portal veins are attenuated, similar to the prior MRI. Small perisplenic varices are present. Abdominal wall/soft tissues: Within normal limits. Bones: Lumbar levoscoliosis. Degenerative changes are present in the spine. Lung bases: Within normal limits. Procedure Note Capri Mayfield MD - 09/27/2024 EXAM MRI LIVER W WO CONTRAST-09/27/2024 10:09 am HISTORY liver lesion on ultrasound COMPARISON US ABDOMEN LIMITED, ACC: [id number], dated 2024-09-06 09:53:59; MRI LIVER W WO CONTRAST, ACC: [id number], dated 2021-06-05 09:40:27; CT ABD_PELVIS W IV AND W ORAL CONTRAST, ACC: [id number], [id number] 20:35:52 TECHNIQUE Pre and post gadolinium enhanced multiplanar MRI Abdomen FINDINGS Liver:Cirrhosis with bridging fibrosis and nodular contour. No steatosis.Observations include: -8.5 x 5.0 cm observation centered in segment 7. This is ill-defined withan infiltrative appearance, possibly extending into segment 6 (image 40series 12 and image 40 series 16. This demonstrates heterogeneous latearterial hyperenhancement and heterogeneous delayed washout with a morefocal area of washout with enhancing capsule (image 45 series 16).Associated diffusion restriction. This is new from the prior exam. LR5. -12 x 18 mm segment 3 arterial hyperenhancing nodule without definitivedelayed washout or enhancing capsule, new (image 66 series 12). LR 3. Subcentimeter right hepatic lobe cyst, unchanged. Gallbladder/biliary tree: 18 mm gallstone in the gallbladder neck. Thegallbladder wall is not thickened. No acute pericholecystic inflammatorychanges. No intrahepatic or extrahepatic biliary ductal dilatation orcholedocholithiasis is appreciated. Pancreas: Within normal limits. Spleen:Spleen measures 15.1 cm transversely. Adrenal glands: Within normal limits. Kidneys: Within normal limits. Bowel: No abnormal bowel distension. Lymph nodes:Portacaval lymphadenopathy, short axis measurement 15 mm, newfrom the prior exam. This is nonspecific with metastatic disease notexcluded. Peritoneum/retroperitoneum: Trace perihepatic free fluid. Vessels: There is conventional anatomy of the celiac axis. Hepatic,portal, splenic, and superior mesenteric veins are patent withoutthrombosis. The right portal veins are attenuated, similar to the priorMRI. Small perisplenic varices are present. Abdominal wall/soft tissues: Within normal limits. Bones: Lumbar levoscoliosis. Degenerative changes are present in thespine. Lung bases: Within normal limits. IMPRESSION IMPRESSION Infiltrative appearing observation suspicious for hepatocellular carcinomacentered in segment 7 measures 85 x 50 mm transversely, LR 5. Lefthepatic lobe 12 x 18 mm arterial hyperenhancing observation, LR 3. Thesecorrespond to the findings on prior ultrasound 09/06/2024. Cirrhosis of the liver with portal hypertension. Splenomegaly. Traceascites. Enlarged nonspecific portacaval lymph node. 18 mm gallstone in the gallbladder neck without findings to suggest acutecholecystitis at this time. us Jay Gonzales MD RAD MRI-MRA Fin al Result documented in this encounter Visit Diagnoses Diagnosis Liver lesion Other specified disorders of liver documented in this encounter Administered Medications Inactive Administered Medications - up to 3 most recent administrations Medication Order MAR Action Action Date Dose Rate Site gadobutrol (Gadavist) inj 7.7 mL 7.7 mL (rounded from 7.71 mL = 0.1 mL/kg 77.1 kg), Intravenous, ONCE, On 09/27/24 at 0946, For 1 dose, Radiology Medication Routing (Non-IR) Given 09/27/2024 9:57 AM EST 7.7 mL documented in this encounter Care Teams Net Wpf Developer Relationship Specialty Start Date End Date Jay Gonzales MD [address] [place] [phone] PCP - General Family Medicine 09/13/22 documented as of this encounter
--- OUTSIDE RECORDS SUMMARY | 2025-02-12 16:18 | External Medical Summary | Summary of Care ---
Author Name Unknown Organization [facility] Address [address] [place] [address] Phone [phone] Care Team Providers Care Program Management Analyst Name Role Phone Jay Gonzales MD Primary Care Provi syl Reason for Visit * Reason Onset Date Comments Test Results 09/07/2024 Unexpected or In determinate Result Encounter Details Date Type Department Care Team ([facility] st Contact Info) Description 09/07/2024 Telephone Laboratory, [place] [address] [place] [address] Jay Gonzales MD [address] [place] [phone] Test Results (Unexpected or Indeterminate ... 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) 08/20/2024 Major depressive disorder with single episode HTN, goal below 130/80 04/03/2023 Wears dentures 04/18/2021 Thrombocytopenia 08/18/2020 Portal hypertension 06/09/2019 Mood disorder 02/16/2018 Other cirrhosis of liver 09/14/2009 Menopause 09/11/2009 Overview (09/11/2009): Age 46 Generalized anxiety disorder 07/03/2009 documented as of this encounter (statuses as of 09/08/2024) Resolved Problems Problem Noted Date Diagnosed Date Resolved Date OTHER 11/15/2009 08/20/2018 Overview (11/20/2009): Genotype 1a Chronic hepatitis C 09/21/2009 08/20/20 18 documented as of this encounter (statuses as of 09/08/2024) Immunizations Name Administration Dates Next Due TDAP, [...] encounter Miscellaneous Notes * Telephone Encounter - Felipa GabrielTORI - 09/07/2024 3:26 PM EST Hello- The radiologist discovered an unexpected or indeterminate finding on Neha Marks ([id number]) and asks that you review the following [...] reviewed. Thank you, TORI Ramirez Client Service [facility] Medicine [place] documented in this encounter Plan of Treatment Upcoming Encounters Date Type Department Care Team (Late st Contact Info) Description 10/07/2024 3:40 PM EST Telemedicine Hepatology, [place] [address], [place] [phone] Red Marcum, [address] [place], [place] [phone] 02/25/2025 11:00 AM EDT Office Visit Family [address] [phone] Jay Gonzales MD [address] [place] [phone] Scheduled Procedures Name Priority Associated Diagnoses Date/Ti me COLONOSCOPY FLEXIBLE PROXIMA L DIAGNOSTIC Recall Personal history of colonic polyps Health Maintenance Due Date Last Done Comments Pneumococcal Vaccine: 65+ Years (1 of 2 - PCV) 1965 Albumin/Creatinine Ratio 1977 Mammogram 1999 Cologuard 2004 Fecal Occult Blood Test 2004 Sigmoidoscopy 2004 Zoster Vaccines (1 of 2) 2009 DTap/Tdap Vaccines (2 - Td or Tdap) 07/03/2019 07/03/2009 Hepatitis B Vaccine (1 of 3 - [...] 08/23/2029 08/23/2024, 05/22, 08/11/2020, Additional history exists Cervical Cancer Screening Discontinued Pap Smear Discontinued [...] filedocumented as of this encounter Care Teams Program Management Analyst Relationship Specialty Start Date End Date Jay Gonzales MD [address] [place], [place] [address] [phone] PCP - General Family Medicine 09/13/22 documented as of this encounter
--- OUTSIDE RECORDS SUMMARY | 2025-02-12 16:18 | External Medical Summary | Summary of Care ---
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 [facility] For what condition is the patient being referred? Liver conditions Comments Pt requesting referral to [facility] Reason for Visit * Reason Comments Follow Up No concerns. 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 Active Fluticasone Propionate 50 MCG/ACT Nasal Suspension (Flonase)Indicati ons:Allergic rhinitis due to pollen, unspecified seasonality USE 2 SPRAYS EACH NOSTRIL EVERY 12 HRS X 2 WKS, THEN 1 SPRAY EVERY 12 HRS AFTER SALINE RINSE 48 mL 1 04/25/2021 Active Additional Information Patient taking differently:, USE 2 SPRAYS EACH NOSTRIL EVERY 12 HRS X 2 WKS, THEN 1 SPRAY EVERY 12 HRS AFTER SALINE RINSE,Indications: as needed, Reported on 10/10/2022 Benzonatate 100 MG Oral Capsule (Tessalon Perles) Take 1 Capsule by mouth 3 times a day as needed for Cough. Do not cut, crush, or chew. 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 90 Tablet 3 03/18/2024 Active Venlafaxine HCl ER 75 MG Oral Capsule Extended Release 24 Hour (Effexor XR)Indications:Mo od disorder (HCC) TAKE 1 CAPSULE BY MOUTH DAILY. DO NOT CUT, CRUSH OR CHEW (TAKE WITH 389=866CG DAILY) 90 Capsule 08/17/2024 Active Venlafaxine HCl ER 150 MG Oral Capsule Extended Release 24 Hour (Effexor XR)Indications:Mo od disorder (HCC) TAKE 1 CAPSULE BY MOUTH EVERY DAY DO NOT CUT, CRUSH, OR CHEW 90 Capsule 08/17/2024 Active QUEtiapine Fumarate 25 MG Oral Tablet (SEROquel)Indicat ions:Mood disorder (HCC) Take 1 Tablet by mouth at bedtime. 90 Tablet 3 08/20/2024 Active Azithromycin 250 MG Oral Tablet (Zithromax)Indica tions:Wheezing,Ac deborah cough Take 2 tabs by mouth on the first day, then 1 tab daily on days two through five 6 Tablet 08/20/2024 4 Active Ventolin HFA 108 (90 Base) MCG/ACT Inhalation Aerosol SolutionIndicatio ns:Wheezing,Acute cough Inhale 2 Puffs by mouth every 4 hours as needed for Wheezing. 6.7 g 3 08/20/2024 Active QUEtiapine Fumarate 25 MG Oral Tablet (SEROquel)Indicat ions:Mood disorder (HCC) TAKE 1 TABLET BY MOUTH EVERYDAY AT BEDTIME 90 Tablet 01/26/2024 4 Discontinue d(Refill) documented as of this encounter (statuses as of 08/20/2024) Active Problems Problem Noted Date Diagnosed Date 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) 08/20/2024 Major depressive disorder with single episode HTN, goal below 130/80 04/03/2023 Wears dentures 04/18/2021 Thrombocytopenia 08/18/2020 Portal hypertension 06/09/2019 Mood disorder 02/16/2018 Other cirrhosis of liver 09/14/2009 Menopause 09/11/2009 Overview: Age 46 Generalized anxiety disorder 07/03/2009 documented as of this encounter (statuses as of 08/20/2024) Resolved Problems Problem Noted Date Diagnosed Date Resolved Date OTHER 11/15/2009 08/20/2018 Overview: Genotype 1a Chronic hepatitis C 09/21/2009 08/20/20 18 documented as of this encounter (statuses as of 08/20/2024) Immunizations Name Administration Dates Next Due TDAP, [...] years and over) Not on file 04/06/2024 Sex and Gender Information Value Date Recorded Sex Assigned at Female 06/25/2022 12:51 PM EDT Gender Identity Female 06/25/2022 12:51 PM EDT Sexual Orientation Straight 06/25/2022 12 :51 PM EDT Job Start Date Occupation Industry Not on file Not on file Not on file documented as of this encounter Last Filed Vital Signs Vital Sign Reading Time Taken Comments Blood Pressure 112/72 08/20/2024 8:48 AM EDT Pulse 78 08/20/2024 8:48 AM EDT Temperature 36.4 °C (97.5 °F) 08/20/2024 8:48 AM ED T Respiratory Rate 20 08/20/2024 8:48 AM EDT Oxygen Saturation 96% 08/20/2024 8:48 AM EDT Inhaled Oxygen Concentration - - Weight 77.1 kg (170 lb) 08/20/2024 8:48 AM EDT Height 160 cm (5' 3") 08/20/2024 8:48 AM EDT Body Mass Index 30.11 08/20/2024 8:48 AM EDT documented in this encounter Progress Notes * Jay Gonzales MD - 08/20/2024 8:55 AM EDT Images from the original note were not included. History of Present Illness Neha Marks is a 63 year old female that presents for Follow Up (No concerns. ) 63-year-old female presenting for follow-up, complaints of wheezing/cough x1 month. Current smoker.No formal diagnosis of COPD. Has not used inhalers in the past History of liver cirrhosis related to chronic hep C which has been treated On Coreg for varices prevention History of anxiety depression, take Seroquel q.h.s. for sleep. Also on Effexor Physical Exam Vitals: 08/20/24 0848 Temp: 36.4 °C (97.5 °F) Pulse: 78 Resp: 20 SpO2: 96% BP: 112/72 BMI: 30.12 BP Readings from Last 3 Encounters: 08/20/24 112/72 04/03/23 112/64 03/13/23 110/70 Wt Readings from Last 3 Encounters: 08/20/24 77.1 kg (170 lb) 04/03/23 72.7 kg (160 lb 3.2 oz) 03/13/23 72.6 kg (160 lb) BMI Readings from Last 3 Encounters: 08/20/24 30.11 kg/m² 04/03/23 28.38 kg/m² 03/13/23 28.34 kg/m² Ht Readings from Last 3 Encounters: 08/20/24 1.6 m (5' 3") 06/18/22 1.6 m (5' 3") 08/18/20 (!) 1.6 m (5' 3") General; Normal cephalic, atraumatic Cardiology; Regular rate and rhythm, normal S1 S2, no murmurs, rubs or gallops, no peripheral edema Pulmonary; Clear to auscultation bilaterally, no rales, rhonchi or wheezing Neuro/psych; CN grossly intact, normal gait, answering questions appropriately, normal mood/affect I have reviewed the following results: CMP, Lipid Panel, Hemoglobin A1C, and CBC Assessment and Plan HTN, goal below 130/80 (Primary) - COMPREHENSIVE METABOLIC PANEL; Future; Expected date: 08/20/2024 Mood disorder (HCC) - QUEtiapine Fumarate 25 MG Oral Tablet (SEROquel); Take 1 Tablet by mouth at bedtime. Other cirrhosis of liver (HCC) - COMPREHENSIVE METABOLIC PANEL; Future; Expected date: 08/20/2024 - COMPREHENSIVE METABOLIC PANEL; Future; Expected date: 02/17/2025 Thrombocytopenia (HCC) - CBC WITH WBC DIFFERENTIAL; Future; Expected date: 08/20/2024 - CBC WITH WBC DIFFERENTIAL; Future; Expected date: 02/17/2025 Lipid screening - LIPID PANEL WITH DIRECT LDL IF TG IS HIGH; Future; Expected date: 08/20/2024 Wheezing - Azithromycin 250 MG Oral Tablet (Zithromax); Take 2 tabs by mouth on the first day, then 1 tab daily on days two through five - Ventolin HFA 108 (90 Base) MCG/ACT Inhalation Aerosol Solution; Inhale 2 Puffs by mouth every 4 hours as needed for Wheezing. Acute cough - Azithromycin 250 MG Oral Tablet (Zithromax); Take 2 tabs by mouth on the first day, then 1 tab daily on days two through five - Ventolin HFA 108 (90 Base) MCG/ACT Inhalation Aerosol Solution; Inhale 2 Puffs by mouth every 4 hours as needed for Wheezing. 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 | For: Return with Physician, Labs 2-5 Days Before Next Visit, Fasting Labs Soon | Check-out note: Pt listed as "self pay" -- States she has Medicaid, please make sure we have record of this so patient is not charged. She hasher insurance cards. Likely COPD diagnosis, no spirometry in the past today Mild expiratory wheezing, but able to clear well, satting 96%. Will treat with Z-Ozzie and p.r.n. albuterol, continue to assess breathing, Extensively discussed all preventative testing--colorectal screening, Pap smear, mammogram it vaccines. Patient declines all recommended preventative testing History of cirrhosis, states that it has been 3 years since she has followed up with her [employer] coxswain. Will order liver ultrasound, recheck liver enzymes and referring back to Hepatology. Continue Coreg for varices prevention Mood is stable, continue Seroquel and Effexor Follow up with me in 6 months, labs soon in before six-month follow-up Wrap-Up Time: I spent a total of 30-39 minutes (exact time 35 mins) on the date of service in preparation, delivery, and documentation of the care provided to Neha Marks excluding any time spent in the performance of separately billed services. documented in this encounter Nursing Notes * Alise Polk MED ASSIST - 08/20/2024 8:50 AM EDT The patient has been properly identified by confirmation of name and date of . Chief Complaint Patient presents with Follow Up No concerns. Pt needs a refill on Seroquel. documented in this encounter Plan of Treatment Upcoming Encounters Date Type Department Care Team (Late st Contact Info) Description 09/06/2024 9:45 AM EST Imaging Radiology, [address] [phone] 10/07/2024 3:40 PM EST [place] [place] [address] [place] [address] Red Marcum, [address] [place] [address] 02/25/2025 11:00 AM EDT Office Visit [address] [phone] Jay Gonzales MD [address] [place] [phone] Scheduled Orders Name Type Priority Associated Diagnoses Orde r Schedule CBC WITH WBC DIFFERENTIAL Lab Routine Thrombocytopenia (HCC) Expected: 08/20/2024 (Approximate), Expires: 08/20/2025 COMPREHENSIVE METABOLIC PANEL Lab Routine HTN, goal below 130/80 Other cirrhosis of liver (HCC) Expected: 08/20/2024 (Approximate), Expires: 08/20/2025 LIPID PANEL WITH DIRECT LDL IF TG IS HIGH Lab Routine Lipid screening Expected: 08/20/2024, Expires: 08/20/2025 COMPREHENSIVE METABOLIC PANEL Lab Routine Other cirrhosis of liver (HCC) Expected: 02/17/2025 (Approximate), Expires: 08/20/2025 CBC WITH WBC DIFFERENTIAL Lab Routine Thrombocytopenia (HCC) Expected: 02/17/2025 (Approximate), Expires: 08/20/2025 US ABDOMEN LIMITED Medical Imaging Routine 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) Portal hypertension (HCC) Expected: 08/20/2024, Expires: 09/19/2025 Scheduled Procedures Name Priority Associated Diagnoses Date/Ti me COLONOSCOPY FLEXIBLE PROXIMA L DIAGNOSTIC Recall Personal history of colonic polyps Scheduled Referrals Name Type Priority Associated Diagnoses Orde r Schedule HEPATOLOGY REFERRAL OP Referral Within 10 days (routine) 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) Portal hypertension (HCC) Ordered: 08/20/2024 Health Maintenance Due Date Last Done Comments Pneumococcal Vaccine: Pediatrics (0 to 5 Years) and At-Risk Patients (6 to 64 Years) (1 of 2 - PCV) 1965 Albumin/Creatinine Ratio 1977 HPV/Co-Test 1989 Mammogram 1999 Cologuard 2004 Fecal Occult Blood Test 2004 Sigmoidoscopy 2004 Zoster Vaccines (1 of 2) 2009 Cervical Cancer Screening 09/11/2012 Pap Smear 09/11/2012 09/11/2009, 09/11/2009 DTap/Tdap Vaccines (2 - Td or Tdap) 07/03/2019 07/03/2009 Hepatitis B Vaccine (1 of 3 - Risk 3-dose series) 2019 Depression Monitoring 06/25/2023 06/25/2022 GFR 03/13/2024 03/13/2023, 05/22, 04/10/2021, Additional history exists Colonoscopy 05/06/2024 05/06/2019, 04/19, 10/31/2014, Additional history exists Colorectal Cancer Screening 05/06/2024 COVID-19 Vaccine ( - season) 2024 Influenza Vaccine (FLU shot) (#1) 2024 Diabetes Screening 03/13/2026 03/13/2023, 0 06/18/2022, 04/10/2021, Additional history exists Lipid Panel 06/18/2027 06/18/2022, 07/21, 02/17/2019, Additional history exists RETIRED - COLONOSCOPY-EVERY 5 YRS AGES 18-100 Discontinued 05/06/2019, 05/06/2019, 10/31/2014, Additional history exists HPV (Gardasil) Vaccine Aged Out No lo nger eligible based on patient's age to complete this topic MENINGOCOCCAL (MENACTRA/MENVEO) Aged Out No longer eligible based on patient's age to complete this topic documented as of this encounter Medical Devices Not on filedocumented as of this encounter Visit Diagnoses Diagnosis HTN, goal below 130/80- Primary Unspecified essential hypertension Mood disorder (HCC) Unspecified episodic mood disorder Other cirrhosis of liver (HCC) Thrombocytopenia (HCC) Thrombocytopenia, unspecified Lipid screening Screening for lipoid disorders Wheezing Acute cough Major depressive disorder with single episode, remission status unspecified 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
--- OUTSIDE RECORDS SUMMARY | 2025-02-12 16:18 | External Medical Summary ---
Author Name Unknown Address Unknown Organization [id number]:[facility] - [address] [facility] [place] [address] Laboratory Report Ordering Provider Test Date Status GARRY URIARTE 08/23/2024 12:40:20 Final Observation Date Value Abnormality Reference (Units ) Status BUN 08/23/2024 12:40:20 10 6-20 (mg/dL) Final Creatinine 08/23/2024 12:40:20 0.6 0.5-1.0 (mg/dL) Final Glomerular filtration rate/1.73 sq M.predicted [Volume Rate/Area] in Serum, Plasma or Blood by Creatinine-based formula (CKD-EPI) 08/23/2024 12:40:20 >90 >=60 (mL/min) Final eGFR is calculated based on the CKD-EPI 2020 equation. Sodium 08/23/2024 12:40:20 142 135-146 (m mol/L) Final Potassium 08/23/2024 12:40:20 3.7 3.5-5.1 (m mol/L) Final Cl 08/23/2024 12:40:20 103 98-107 (mm ol/L) Final CO2 08/23/2024 12:40:20 27 22-32 (mmo l/L) Final Anion gap 08/23/2024 12:40:20 12 7-15 (mmol /L) Final Glucose 08/23/2024 12:40:20 147 Above high normal 70 -120 (mg/dL) Final Albumin 08/23/2024 12:40:20 4.1 3.8-5.0 (g /dL) Final AST (Aspartate aminotransferase) 08/23/2024 12:40:20 56 Above high normal 10-35 (U/L) Final Alk Phos 08/23/2024 12:40:20 284 Above high normal 35 -130 (U/L) Final Bilirubin, Total 08/23/2024 12:40:20 0.7 <=1 .2 (mg/dL) Final Calcium 08/23/2024 12:40:20 9.3 8.4-10.2 ( mg/dL) Final Protein 08/23/2024 12:40:20 6.8 6.0-8.3 (g /dL) Final ALT (Alanine aminotransferase) 08/23/2024 12:40:20 32 10-35 (U/L) Gilles white Performing Location [facility] - [facility] [address] [facility] [place] [address]
--- OUTSIDE RECORDS SUMMARY | 2025-02-12 16:18 | External Medical Summary | Summary of Care ---
Author Name Unknown Organization [facility] Address [address] [place] [address] Phone [phone] Care Team Providers Care Vice Admiral Name Role Phone Jay Gonzales MD Primary Care Provi syl Reason for Referral * Precert (Within 10 days (routine)) - Authorized Specialty Diagnoses / Procedures Referred By Contac t Referred To Contact Radiology Diagnoses Liver lesion Procedures MRI LIVER W WO CONTRAST Jay Gonzales MD [address] [place] [phone] Phone: tel: fax: Referral ID Status Reason Start Date Expiration Date V isits Requested Visits Authorized [id number] Authorized 09/09/2024 [id number] Reason for Visit * Reason Onset Date Comments Test Results 09/07/2024 Unexpected or In determinate Result Encounter Details Date Type Department Care Team (Late st Contact Info) Description 09/07/2024 Telephone Laboratory, [place] [address] [place] [address] Jay Gonzales MD [address] [place] [phone] Test Results (Unexpected or Indeterminate ... Allergies No known active allergiesdocumented as of this encounter (statuses as of 09/09/2024) Medications Multiple Vitamins-Mineral s (CENTRUM ADULTS) TABS [...] NOT CUT, CRUSH OR CHEW (TAKE WITH 009=003MD DAILY) 90 Capsule 4 Active Venlafaxine HCl [...] as of this encounter (statuses as of 09/09/2024) Active Problems Problem Noted Date Diagnosed Date 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) 08/20/2024 Major depressive disorder with single episode HTN, goal below 130/80 04/03/2023 Wears dentures 04/18/2021 Thrombocytopenia 08/18/2020 Portal hypertension 06/09/2019 Mood disorder 02/16/2018 Other cirrhosis of liver 09/14/2009 Menopause 09/11/2009 Overview (09/11/2009): Age 46 Generalized anxiety disorder 07/03/2009 documented as of this encounter (statuses as of 09/09/2024) Resolved Problems Problem Noted Date Diagnosed Date Resolved Date OTHER 11/15/2009 08/20/2018 Overview (11/20/2009): Genotype 1a Chronic hepatitis C 09/21/2009 08/20/20 18 documented as of this encounter (statuses as of 09/09/2024) Immunizations Name Administration Dates Next Due TDAP, [...] as of this encounter Miscellaneous Notes * Addendum Note - Jya Gonzales MD - 09/09/2024 11:08 AM EST [...] unexpected or indeterminate finding on Neha Marks ([id number]) and asks that you review the following [...] reviewed. Thank you, TORI Ramirez Client Service [facility] documented in this encounter Plan of Treatment Upcoming Encounters Date Type Department Care Team (Late st Contact Info) Description 10/07/2024 3:40 PM EST Telemedicine Hepatology, [place] [address] [facility] [place] [address] Red Marcum DO [address] [place] [address] 02/25/2025 11:00 AM EDT Office Visit [address] [phone] Jay Gonzales MD [address] [place] [phone] Scheduled Orders Name Type Priority Associated [...] 08/23/2024, 08/3 , 08/11/2020, Additional history exists Cervical Cancer Screening [...] liver documented in this encounter Care Teams Vice Admiral Relationship Specialty Start Date End Date Jay Gonzales MD [address] [place] [phone] PCP - General Family Medicine 09/13/22 documented as of this encounter
--- OUTSIDE RECORDS SUMMARY | 2025-02-12 16:18 | External Medical Summary | Summary of Care ---
Author Name Unknown Organization [facility] Address [address] [place] [address] Phone [phone] Care Team Providers Care Parlor Chaperone Name Role Phone Jay Gonzales MD Primary Care Provi syl Reason for Referral * Precert (Within 10 days (routine)) - Authorized Specialty Diagnoses / Procedures Referred By Contac t Referred To Contact Radiology Diagnoses Liver lesion Procedures MRI LIVER W WO CONTRAST Jay Gonzales MD [address] [place] [phone] Phone: tel: fax: Referral ID Status Reason Start Date Expiration Date V isits Requested Visits Authorized [id number] Authorized 09/09/2024 [id number] Reason for Visit * Reason Onset Date Comments Test Results 09/07/2024 Unexpected or In determinate Result Encounter Details Date Type Department Care Team (Late st Contact Info) Description 09/07/2024 Telephone Laboratory, [place] [address] [place] [phone] Jay Gonzales MD [address] [place] [phone] Test Results (Unexpected or Indeterminate [...] NOT CUT, CRUSH OR CHEW (TAKE WITH 146=731NF DAILY) 90 Capsule 4 Active Venlafaxine HCl [...] encounter Miscellaneous Notes * Telephone Encounter - Josette Scott RN [...] unexpected or indeterminate finding on Neha Marks ([id number]) and asks that you review the following [...] reviewed. Thank you, TORI Ramirez Client Service Rep [facility] documented in this encounter Plan of Treatment Upcoming Encounters Date Type Department Care Team (Late st Contact Info) Description 10/07/2024 3:40 PM EST Telemedicine Hepatology, [place] [address] [place] [address] Red Marcum [address] [place] [address] 02/25/2025 11:00 AM EDT Office Visit [address] [phone] Jay Gonzales MD [address] [place] [phone] Scheduled Orders Name Type Priority Associated Diagnoses [...] liver documented in this encounter Care Teams Parlor Chaperone Relationship Specialty Start Date End Date Jay Gonzales MD [address] [place] [phone] PCP - General Family Medicine 09/13/22 documented as of this encounter
--- OUTSIDE RECORDS SUMMARY | 2025-02-12 16:18 | External Medical Summary | Summary of Care ---
Author Name Unknown Organization [facility] Address [address] [place] [address] Phone [phone] Care Team Providers Care Virtualization Architect Name Role Phone Jay Gonzales MD Primary Care Provi syl Reason for Referral * Precert (Within 10 days (routine)) - Authorized Specialty Diagnoses / Procedures Referred By Contac t Referred To Contact Radiology Diagnoses Liver lesion Procedures MRI LIVER W WO CONTRAST Jay Gonzales MD [address] [place] [phone] Phone: tel: fax: Referral ID Status Reason Start Date Expiration Date V isits Requested Visits Authorized [id number] Authorized 09/09/2024 [id number] Reason for Visit * Reason Onset Date Comments Test Results 09/07/2024 Unexpected or In determinate Result Encounter Details Date Type Department Care Team (Late st Contact Info) Description 09/07/2024 Telephone Laboratory, [place] [address] [place] [address] Jay Gonzales MD [address] [place] [phone] Test Results (Unexpected or Indeterminate [...] NOT CUT, CRUSH OR CHEW (TAKE WITH 309=871UF DAILY) 90 Capsule 4 Active Venlafaxine HCl [...] Gabriel OSA - 09/07/2024 3:26 PM EST Anay- The radiologist discovered an unexpected or indeterminate finding on Neha Marks ([id number]) and asks that you review the following [...] Thank you, TORI Ramirez Client Service Rep [facility] documented in this encounter Plan of Treatment Upcoming Encounters Date Type Department Care Team ([facility] st Contact Info) Description 10/07/2024 3:40 PM EST Telemedicine Hepatology, [place] [address] [place] [address] Red Marcum, [address] [place] [address] 02/25/2025 11:00 AM EDT Office Visit [address] [phone] Jay Gonzales MD [address] [place] [phone] Scheduled Orders Name Type Priority Associated [...] liver documented in this encounter Care Teams Virtualization Architect Relationship Specialty Start Date End Date Jay Gonzales MD [address] [place] [phone] PCP - General Family Medicine 09/13/22 documented as of this encounter
--- OUTSIDE RECORDS SUMMARY | 2025-02-12 16:18 | External Medical Summary | Summary of Care ---
Author Name Unknown Organization [facility] Address [address] [place] [address] Phone [phone] Care Team Providers Care Cna Name Role Phone Jay Gonzales MD Primary Care Provi syl Reason for Visit * Reason Onset Date Comments Test Results 09/07/2024 Unexpected or In determinate Result Encounter Details Date Type Department Care Team ([facility] st Contact Info) Description 09/07/2024 Telephone Laboratory, [place] [address] [place] [address] Jay Gonzales MD [address] [place] [phone] Test Results (Unexpected or Indeterminate ... 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) 08/20/2024 Major depressive disorder with single episode HTN, goal below 130/80 04/03/2023 Wears dentures 04/18/2021 Thrombocytopenia 08/18/2020 Portal hypertension 06/09/2019 Mood disorder 02/16/2018 Other cirrhosis of liver 09/14/2009 Menopause 09/11/2009 Overview (09/11/2009): Age 46 Generalized anxiety disorder 07/03/2009 documented as of this encounter (statuses as of 09/07/2024) Resolved Problems Problem Noted Date Diagnosed Date Resolved Date OTHER 11/15/2009 08/20/2018 Overview (11/20/2009): Genotype 1a Chronic hepatitis C 09/21/2009 08/20/20 18 documented as of this encounter (statuses as of 09/07/2024) Immunizations Name Administration Dates Next Due TDAP, [...] unexpected or indeterminate finding on Neha Marks ([id number]) and asks that you review the following [...] reviewed. Thank you, TORI Ramirez Client Service [facility] [place] documented in this encounter Plan of Treatment Upcoming Encounters Date Type Department Care Team (Late st Contact Info) Description 10/07/2024 3:40 PM EST Telemedicine Hepatology, [place] [address], [place] [phone] Red Marcum, [address] [place], [place] [phone] 02/25/2025 11:00 AM EDT Office Visit Family [address] [phone] Jay Gonzales MD [address] [place] [phone] Scheduled Procedures Name Priority Associated Diagnoses [...] filedocumented as of this encounter Care Teams Cna Relationship Specialty Start Date End Date Jay Gonzales MD [address] [place], [place] [address] [phone] PCP - General Family Medicine 09/13/22 documented as of this encounter
--- OUTSIDE RECORDS SUMMARY | 2025-02-12 16:18 | External Medical Summary ---
Author Name Unknown Address Unknown Organization K01:LABORATORY [facility] - [facility] [place] [address] [address] [facility] [address] Laboratory Report Ordering Provider Test Date Status GARRY URIARTE 08/23/2024 12:40:20 Final Observation Date Value Abnormality Reference (Units ) Status WBC, Total 08/23/2024 12:40:20 5.11 4.00-10.80 (K/uL) Final RBC 08/23/2024 12:40:20 4.52 3.85-5.15 (M/uL) Final Hemoglobin 08/23/2024 12:40:20 13.7 12.0-15.3 (g/dL) Final HCT 08/23/2024 12:40:20 43.4 36.0-45.2 (%) Final MCV 08/23/2024 12:40:20 96.0 81.5-97.5 (fL) Final MCH 08/23/2024 12:40:20 30.3 27.0-34.0 (pg) Final MCHC 08/23/2024 12:40:20 31.6 32.0-36.0 (g/dL) Final RDW 08/23/2024 12:40:20 14.5 11.5-15.5 (%) Final Platelets 08/23/2024 12:40:20 64 Below low normal 140-400 (K/uL) Final MPV 08/23/2024 12:40:20 12.8 6.6-11.1 (fL) Final Nucleated erythrocytes/100 leukocytes [Ratio] in Blood by Automated count 08/23/2024 12:40:20 0 <=0 (/100 WBCs) Final Performing Location LABORATORY [facility] - [address] [facility] [address]
--- OUTSIDE RECORDS SUMMARY | 2025-02-12 16:18 | External Medical Summary ---
Author Name Unknown Address Unknown Organization K01[facility] [address] [facility] [address] Laboratory Report Ordering Provider Test Date Status GARRY URIARTE 08/23/2024 12:40:20 Final Observation Date Value Abnormality Reference (Units ) Status SYNC LEUKOCYTES IN BLOOD BY AUTOMATED COUNT 08/23/2024 12:40:20 5.11 4.00-10.80 (K/uL) Final Segs 08/23/2024 12:40:20 74.9 40.0-75.0 (%) Final Lymphs % 08/23/2024 12:40:20 12.9 Below low normal 18.0-42.0 (%) Final Monos 08/23/2024 12:40:20 8.6 1.0-11.0 (%) Final Eosinophils 08/23/2024 12:40:20 2.2 0.0-6.0 (%) Final Basos 08/23/2024 12:40:20 0.8 0.0-2.0 (%) Final Immature Granulocyte, Percent 08/23/2024 12:40:20 0.6 0.0-2.0 (%) Final Absolute Segs 08/23/2024 12:40:20 3.83 1.80-7.70 (K/uL) Final Lymphs, absolute 08/23/2024 12:40:20 0.66 Below low normal 1.00-4.80 (K/ul) Final Monos, Abs 08/23/2024 12:40:20 0.44 0.00-1.10 (K/uL) Final Eos, Abs 08/23/2024 12:40:20 0.11 0.00-0.70 (K/uL) Final Basos, Abs 08/23/2024 12:40:20 0.04 0.00-0.20 (K/uL) Final Immature Granulocytes, Number 08/23/2024 12:40:20 0.03 0.00-0.20 (K/uL) Final Performing Location LABORATORY [facility] - [address] [facility] [address]
--- OUTSIDE RECORDS SUMMARY | 2025-02-12 16:18 | External Medical Summary | Summary of Care ---
Author Name Unknown Organization [facility] Address [address] [place] [address] Phone [phone] Care Team Providers Care Project Management Director Name Role Phone Jay Gonzales MD Primary Care Provi syl Reason for Visit * Reason Comments eRx-Medication Refill Encounter Details Date Type Department Care Team ([facility] Contact Info) Description 08/14/2024 Refill Family Practice [facility] [address] [place] [phone] Jay Gonzales MD [address] [place] [phone] HTN, goal below 130/80*; Mood disorder (HCC) Allergies No known active allergiesdocumented as of this encounter (statuses as of 08/17/2024) Medications Medication Sig Dispensed Refills Start Date End Date Status Multiple Vitamins-Mineral s (CENTRUM ADULTS) TABS Take [...] or chew. 50 Capsule 1 10/14/2022 Active Additional Information Patient not taking.Reported on 04/03/2023 QUEtiapine Fumarate 25 MG Oral Tablet (SEROquel)Indica tions:Mood disorder (HCC) TAKE 1 TABLET BY MOUTH EVERYDAY AT BEDTIME 90 Tablet 01/26/2024 Active Carvedilol 6.25 MG Oral Tablet (Coreg)Indicatio [...] NOT CUT, CRUSH OR CHEW (TAKE WITH 635=153SB DAILY) 90 Capsule 08/17/2024 Active Venlafaxine HCl ER 150 MG Oral Capsule Extended Release 24 Hour (Effexor XR)Indications:M ood disorder (HCC) TAKE 1 CAPSULE BY MOUTH EVERY DAY DO NOT CUT, CRUSH, OR CHEW 90 Capsule 08/17/2024 Active Venlafaxine HCl ER 75 MG Oral Capsule Extended Release 24 Hour (Effexor XR)Indications:M ood disorder (HCC) TAKE 1 CAPSULE BY MOUTH DAILY. DO NOT CUT, CRUSH OR CHEW (TAKE WITH [id number] DAILY) 90 Capsule 05/13/2024 4 Discontinued Venlafaxine HCl ER 150 MG Oral Capsule Extended Release 24 Hour (Effexor XR)Indications:M ood disorder (HCC) TAKE 1 CAPSULE BY MOUTH EVERY DAY DO NOT CUT, CRUSH, OR CHEW 90 Capsule 05/13/2024 4 Discontinued documented as of this encounter (statuses as of 08/17/2024) Active Problems Problem Noted Date Diagnosed Date Major depressive disorder with single episode HTN, goal below 130/80 04/03/2023 Wears dentures 04/18/2021 Thrombocytopenia 08/18/2020 Portal hypertension 06/09/2019 Mood disorder 02/16/2018 Other cirrhosis of liver 09/14/2009 Menopause 09/11/2009 Overview: Age 46 Generalized anxiety disorder 07/03/2009 documented as of this encounter (statuses as of 08/17/2024) Resolved Problems Problem Noted Date Diagnosed Date Resolved Date OTHER 11/15/2009 08/20/2018 Overview: Genotype 1a Chronic hepatitis C 09/21/2009 08/20/20 18 documented as of this encounter (statuses as of 08/17/2024) Immunizations Name Administration Dates Next Due TDAP, [...] on file documented as of this encounter Miscellaneous Notes * Telephone Encounter - Jay Gonzales MD - 08/17/2024 8:54 AM EDT Signed Prescriptions: Disp Refills Venlafaxine HCl ER 75 MG Oral Capsule Exte*90 Cap*0 Sig: TAKE 1 CAPSULE BY MOUTH DAILY. DO NOT CUT, CRUSH OR CHEW (TAKE WITH [id number]=124JI DAILY) Authorizing Provider: JAY GONZALES Venlafaxine HCl ER 150 MG Oral Capsule Ext*90 Cap*0 Sig: TAKE 1 CAPSULE BY MOUTH EVERY DAY DO NOT CUT, CRUSH, OR CHEW Authorizing Van white: JAY GONZALES * Telephone Encounter - Gabriela Gonzalez publications manager - 08/16/2024 3:01 PM EDTPending Prescriptions: Disp Refills Venlafaxine HCl ER 75 MG Oral Capsule Exte*90 Cap*0 Sig: TAKE 1 CAPSULE BY MOUTH DAILY. DO NOT CUT, CRUSH OR CHEW (TAKE WITH [id number]=294GA DAILY) Venlafaxine HCl ER 150 MG Oral Capsule Ext*90 Cap*0 Sig: TAKE 1 CAPSULE BY MOUTH EVERY DAY DO NOT CUT, CRUSH, OR CHEW ------ * Telephone Encounter - Gabriela Gonzalez publications manager - 08/16/2024 3:01 PM EDT Received message from [facility] regarding patient needing an appointment and labs. Call Placed, Pt was agreeable to set up both an office visit and lab appointment. Patient's lab appointment is Walk in andoffice visit is 08/20/2024. Thank you, Gabriela Gonzalez Rn Anesthesiology [facility] 08/16/2024, 3:01 PM * Telephone Encounter - Celia Parada RP - 08/16/2024 12:18 PM EDT Pending Prescriptions: Disp Refills Venlafaxine HCl ER 75 MG Oral Capsule Exte*90 Cap*0 Sig: TAKE 1 CAPSULE BY MOUTH DAILY. DO NOT CUT, CRUSH OR CHEW (TAKE WITH 824=560WH DAILY) Venlafaxine HCl ER 150 MG Oral Capsule Ext*90 Cap*0 Sig: TAKE 1 CAPSULE BY MOUTH EVERY DAY DO NOT CUT, CRUSH, OR CHEW ------ * Telephone Encounter - Celia Parada RPh - 08/16/2024 12:17 PM EDT Attempt #2 Unable to authorize medication refills for pended medication(s) at this time. Part of the protocol criteria used for refill authorization was not satisfied. Per refill protocol patient should have office visit and labs on file within past year. Reviewed AMP report, Care Gaps/Health Maintenance, medications list, and for any routine labs typically orderedfor this patient. Lab orders placed. Please contact patient to schedule office visit with PRIMARY CARE and advise of labs ordered for blood draw AND URINE specimen (patient will have to be able to void to provide sample).. Recommend patient to fast if able for labs. Patient may still have water and regular medications. Advise to obtain labs before requesting the next refill. Last Visit: 04/03/2023 (in office), Visit date not found (telemedicine) Next Visit: Visit date not found After contacting patient, please forward request to Jay Gonzales MD. Thank You Celia Parada, PharmD Clinical Pharmacist [facility]) [phone] / [phone] 08/16/2024, 12:17 PM * Telephone Encounter - Celia Parada RPh - 08/16/2024 12:16 PM EDT Did you pend patient's preferred pharmacy and medication before forwarding?yes Pharmacy: [id number] [address] Pending Prescriptions: Disp Refills Venlafaxine HCl ER 75 MG Oral Capsule Ext*90 Cap*0 Sig: TAKE 1 CAPSULE BY MOUTH DAILY. DO NOT CUT, CRUSH OR CHEW (TAKE WITH 041=118FT DAILY) Venlafaxine HCl ER 150 MG Oral Capsule Ex*90 Cap*0 Sig: TAKE 1 CAPSULE BY MOUTH EVERY DAY DO NOT CUT, CRUSH, OR CHEW Last Visit: 04/03/2023 (in office), Visit date not found (telemedicine) Next Visit: Visit date not found If no future appointments scheduled, and last appointment is greater than a year ago, please schedule patient for a follow-up appointment Last date the medication was ordered: 05/13/24 Is this request for a controlled substance?No Urine Drug Screen:No results found for this or any previous visit. Patient Phone Numbers Labs: Lab Results Component Value Date/Time CREAT 0.7 03/13/2023 08:30 AM CREAT 0.8 10/10/2020 09:12 AM POTASSIUM 3.8 03/13/2023 08:30 AM POTASSIUM 4.1 10/10/2020 09:12 AM TSH 2.65 04/10/2021 01:15 PM TSH 2.49 02/17/2019 10:04 AM TSH 1.02 11/22/1996 02:40 PM LDL 90 06/18/2022 10:03 AM LDL 85 08/11/2020 02:51 PM LDL NOT APPLICABLE 08/11/2020 02:51 PM ALT 28 03/13/2023 08:30 AM ALT 31 10/10/2020 09:12 AM HGBA1C 6.0 (H) 02/17/2019 10:04 AM documented in this encounter Plan of Treatment Upcoming Encounters Date Type Department Care Team (Late st Contact Info) Description 08/20/2024 8:40 AM EDT Office Visit Family [facility] [address] [place] [phone] Jay Gonzales MD [address] [place] [phone] Scheduled Orders Name Type Priority Associated Diagnoses Orde r Schedule ALBUMIN / CREATININE RATIO, URINE Lab Routine HTN, goal below 130/80 Expected: 08/30/2024, Expires: 08/16/2025 Scheduled Procedures Name Priority Associated Diagnoses Date/Ti [...] 2024 Influenza Vaccine (FLU shot) (#1) 2024 Lipid Panel 06/18/2027 06/18/2022, 07/21, 02/17/2019, Additional [...] disorder documented in this encounter Care Teams Project Management Director Relationship Specialty Start Date End Date Jay Gonzales MD [address] [place] [phone] PCP - General Family Medicine 09/13/22 documented as of this encounter
--- OUTSIDE RECORDS SUMMARY | 2025-02-12 16:18 | External Medical Summary | Summary of Care ---
Author Name Unknown Organization [facility] Address [address] [place] [address] Phone [phone] Care Team Providers Care Switchboard Mechanic Name Role Phone Jay Gonzales MD Primary Care Provi syl Reason for Visit * Reason Comments Outpatient Testing Encounter Details Date Type Department Care Team ([facility] st Contact Info) Description 08/23/2024 12:30 PM [facility] Laboratory Laboratory Patient Service [address] [phone] [address] Encounter for long-term (current) use of medications; Thrombocytopenia (HCC); HTN, goal below 130/80; Other cirrhosis of liver (HCC); Lipid screening Allergies No known active allergiesdocumented as of this encounter (statuses as of 08/23/2024) Medications Medication Sig Dispensed Refills Start Date End Date Status Multiple Vitamins-Minerals (CENTRUM ADULTS) TABS Take by mouth daily. Active Fluticasone Propionate 50 MCG/ACT Nasal Suspension (Flonase)Indicatio ns:Allergic rhinitis due to pollen, unspecified seasonality USE [...] 10/14/2022 Active Carvedilol 6.25 MG Oral Tablet (Coreg)Indications :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),Secondary esophageal varices without bleeding (HCC) Take 1 Tablet by mouth 2 times a day with morning and evening meals. 90 Tablet 3 03/18/2024 Active Venlafaxine HCl ER 75 MG Oral Capsule Extended Release 24 Hour (Effexor XR)Indications:Moo d disorder (HCC) TAKE 1 CAPSULE BY MOUTH DAILY. DO NOT CUT, CRUSH OR CHEW (TAKE WITH 043=396XG DAILY) 90 Capsule 08/17/2024 Active Venlafaxine HCl ER 150 MG Oral Capsule Extended Release 24 Hour (Effexor XR)Indications:Moo d disorder (HCC) TAKE 1 CAPSULE BY MOUTH EVERY DAY DO NOT CUT, CRUSH, OR CHEW 90 Capsule 08/17/2024 Active QUEtiapine Fumarate 25 MG Oral Tablet (SEROquel)Indicati ons:Mood disorder (HCC) Take 1 Tablet by mouth at bedtime. 90 Tablet 3 08/20/2024 Active Azithromycin 250 MG Oral Tablet (Zithromax)Indicat ions:Wheezing,Acut e cough Take 2 tabs by mouth on the first day, then 1 tab daily on days two through five 6 Tablet 08/20/2024 08/25/2024 Active Ventolin HFA 108 (90 Base) MCG/ACT Inhalation Aerosol SolutionIndication s:Wheezing,Acute cough Inhale 2 Puffs by mouth every 4 hours as needed for Wheezing. 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) 08/20/2024 Major depressive disorder with single episode HTN, goal below 130/80 04/03/2023 Wears dentures 04/18/2021 Thrombocytopenia 08/18/2020 Portal hypertension 06/09/2019 Mood disorder 02/16/2018 Other cirrhosis of liver 09/14/2009 Menopause 09/11/2009 Overview: Age 46 Generalized anxiety disorder 07/03/2009 documented as of this encounter (statuses as of 08/23/2024) Resolved Problems Problem Noted Date Diagnosed Date Resolved Date OTHER 11/15/2009 08/20/2018 Overview: Genotype 1a Chronic hepatitis C 09/21/2009 08/20/20 18 documented as of this encounter (statuses as of 08/23/2024) Immunizations Name Administration Dates Next Due TDAP, [...] on file documented as of this encounter Plan of Treatment Upcoming Encounters Date Type Department Care Team (Late st Contact Info) Description 09/06/2024 9:45 AM EST Imaging Radiology, [address] [phone] 10/07/2024 3:40 PM EST Telemedicine Hepatology, [address] [place] [address] Red Marcum DO [address] [place] [address] 02/25/2025 11:00 AM EDT Office Visit [facility] [address] [place] [phone] Jay Gonzales MD [address] [place] [phone] Pending Results Name Type Priority Associated Diagnoses Date /Time LIPID PANEL WITH DIRECT LDL IF TG IS HIGH Lab Routine Encounter for long-term (current) use of medications 08/23/2024 12:40 PM EST CBC WITH WBC DIFFERENTIAL Lab Routine Thrombocytopenia (HCC) 08/23/2024 12:40 PM EST COMPREHENSIVE METABOLIC PANEL Lab Routine HTN, goal below 130/80 Other cirrhosis of liver (HCC) 08/23/2024 12:40 PM EST CBC Lab Routine Thrombocytopenia (HCC) 08/23/2024 12:40 PM EST DIFFERENTIAL, AUTOMATED Lab Routine Thrombocytopenia (HCC) 08/23/2024 12:40 PM EST Scheduled Procedures Name Priority Associated [...] as of this encounter Visit Diagnoses Diagnosis Encounter for long-term (current) use of medications Encounter for long-term (current) use of other medications Thrombocytopenia (HCC) Thrombocytopenia, unspecified HTN, goal below 130/80 Unspecified essential hypertension Other cirrhosis of liver (HCC) Lipid screening Screening for lipoid disorders documented in this encounter Care Teams Switchboard Mechanic Relationship Specialty Start Date End Date Jay Gonzales MD [address] [place] [phone] PCP - General Family Medicine 09/13/22 documented as of this encounter
--- OUTSIDE RECORDS SUMMARY | 2025-02-12 16:18 | External Medical Summary ---
Author Name Unknown Address Unknown Organization K01:[facility] [address] [facility] [address] Laboratory Report Ordering Provider Test Date Status HARSHAL GO 08/23/2024 12:40:20 Final Observation Date Value Abnormality Reference (Units ) Status Triglyceride 08/23/2024 12:40:20 104 <=174 ( mg/dL) Final Triglyceride Reference Range s (mg/dL):
<150 Acceptable
150-174 Borderline high
175-499 High
>=500 Very high Cholesterol 08/23/2024 12:40:20 165 <200 (mg /dL) Final Total Cholesterol Reference Ranges (mg/dL):
<200 Desirable
200-239 Borderline high
>=240 High HDL 08/23/2024 12:40:20 57 >49 (mg/dL ) Final HDL Cholesterol Reference Ra nges (mg/dL):
>=60 High (Desirable)
<50 Low (Undesirable) For Females
<40 Low (Undesirable) For Males NON-HDL CHOLESTEROL 08/23/2024 12:40:20 108 <=159 (mg/dL) Final Non-HDL Cholesterol Referenc e Range (mg/dL):
<100 Target level for high risk ASCVD patient
<130 Optimal for general population
130-159 Near optimal for general population
160-189 Borderline High
190-219 High
>=220 Very High LDL, (calculated) 08/23/2024 12:40:20 87 <= 129 (mg/dL) Final LDL Cholesterol Reference Ra nges (mg/dL):
<70 Target level for high risk ASCVD patient
<100 Optimal for general population
100-129 Near optimal for general population
130-159 Borderline high
160-189 High
>=190 Very high Performing Location LABORATORY [facility] - [address] [facility] [address]
[2025-02-12] MEDS: LIDOCAINE 5% 1 PATCH TD STA (16:49)
[2025-02-12] MEDS: ACETAMINOPHEN 1,000 MG/100 ML VIAL IV STA (17:17)
[2025-02-12 17:26] LABS: iSTAT Creatinine 0.5 mg/dl (0.6-1.3); iSTAT Hemoglobin 11.6 g/dl (12.0-16.0); iSTAT Ionized Calcium 1.08 mmol/l (1.12-1.32); iSTAT Potassium 3.3 mmol/L (3.3-5.0)
[2025-02-12] MEDS: OPTIRAY 320 100ml IV ONE (17:39)
--- NOTE | 2025-02-12 17:49 | CT Scan Report ---
Clinical History: Confusion. Technique: Axial computed tomography images were obtained of the brain from the vertex to the skull base without intravenous contrast. Comparison is made to the MRI of the brain dated 01/12/2025 Findings: There is no sign of intracranial hemorrhage. There is normal vora-white matter differentiation with no sign of acute or old infarction. No midline shift or other form of herniation is identified. There is no hydrocephalus. There is an unchanged 3.4 cm expansile hyperdense destructive mass involving the left frontal bone The visualized portions of the orbits and paranasal sinuses appear unremarkable. The mastoid air cells appear clear Impression: 1. Unchanged 3.4 cm expansile destructive mass involving the left frontal bone. This may be due to metastatic disease 2. Otherwise unremarkable noncontrast head CT ACT 112: Positive. There are findings on this exam that require communication between the performing entity and the patient following Patient Test Result Information Act ([place] ACT 112) guidelines. Electronically signed by Juan Sanchez 02-12-2025 5:49 PM
[2025-02-12 17:52] LABS: Alanine Aminotransferase 93 U/L (7-52); Albumin Globulin Ratio 1.1 (0.9-2); Albumin Level 3.4 gm/dl (3.4-5.0); Alkaline Phosphatase 791 U/L (34-104); Anion Gap 5 (3-11); Aspartate Aminotransferase 281 U/L (13-39); BUN Creatinine Ratio 12.7 (10-20); Bilirubin,Total 2.6 mg/dl (0.2-1.0); Blood Urea Nitrogen 7 mg/dl (6-23); Calcium 8.6 mg/dl (8.6-10.3); Carbon Dioxide 32 mmol/L (21-32); Chloride 97 mmol/L (98-107); Globulin 3.2 gm/dl (2.5-4.0); Glucose 147 mg/dl (70-99(Fasting)); Lipase 56 U/L (11-82); Magnesium 1.5 mg/dl (1.7-2.4); Potassium 3.4 mmol/L (3.5-5.1); Sodium 134 mmol/L (136-145); Total Protein 6.6 gm/dl (6.0-8.3)
[2025-02-12 17:58] LABS: Anisocytosis Present; Basophils # (auto) 0.04 K/uL (0.00-0.20); Basophils % (auto) 0.4 %; Eosinophils # (auto) 0.08 K/uL (0.00-0.50); Eosinophils % (auto) 0.8 %; Hematocrit (blood only) 31.8 % (37.0-47.0); Hemoglobin 10.4 g/dl (12.0-16.0); Immature Granulocytes # (auto) 0.16 K/uL (0.01-0.20); Immature Granulocytes % (auto) 1.7 %; Lymphocytes # (auto) 0.39 K/uL (1.20-3.40); Lymphocytes % (auto) 4.1 %; Mean Corpuscular Hemoglobin 28.4 pg (25.0-34.0); Mean Corpuscular Hgb Conc 32.7 g/dL (32.0-36.0); Mean Corpuscular Volume 86.9 fL (80.0-100.0); Mean Platelet Volume 11.6 fL (9.4-12.4); Monocytes # (auto) 1.08 K/uL (0.11-0.59); Monocytes % (auto) 11.4 %; Neutrophils # (auto) 7.75 K/uL (1.40-6.50); Neutrophils % (auto) 81.6 %; Ovalocytes 1+; Platelet Count 55 K/uL (130-400); Platelet Estimate Decreased (Normal); RDW Coefficient of Variation 18.6 % (11.5-14.5); RDW Standard Deviation 57.9 fL (36.4-46.3); Red Blood Count 3.66 M/uL (4.20-5.40)
[2025-02-12 18:05] LABS: INR 2.1 (0.9-1.1); Prothrombin Time 21.2 Seconds (9.0-12.0)
[2025-02-12 18:07] LABS: Thyroid Stimulating Hormone 1.016 uIu/ml (0.300-4.500)
--- NOTE | 2025-02-12 18:07 | CT Scan Report ---
Clinical History: Right lower quadrant pain. Liver cancer Technique: Axial computed tomography images were obtained of the abdomen and pelvis after the administration of intravenous contrast. No prior CT is available for comparison. Findings: The liver is shrunken and nodular in contour, consistent with cirrhosis. There are mild abdominal varices. There are innumerable low-attenuation lesions throughout the right hepatic lobe and to a lesser extent within the left hepatic lobe. There is apparent occlusion of the right portal vein. The main portal vein is patent. There are apparent mild gallbladder wall calcifications. There is a suspected stone in the gallbladder neck. There is no clear evidence of acute cholecystitis. No bile duct dilatation is noted. The spleen is enlarged measuring 15.4 cm. No focal splenic lesion is evident. The pancreas appears normal with no sign of acute or chronic pancreatitis and no mass lesion noted. The pancreatic duct is of normal caliber. The adrenal glands appear unremarkable. No definite renal or proximal ureteral calculi are seen on this contrast-enhanced study. There is no hydronephrosis or perinephric stranding. No renal mass lesion is identified. The aorta is of normal caliber. There is an enlarged portacaval lymph node, measuring 5.3 x 2.3 cm. The stomach appears normal. There is no sign of small bowel obstruction. The colon appears unremarkable. There is no definite sign of appendicitis. No free intraperitoneal air is identified. There is a small to moderate amount of ascites. There is multifocal peritoneal nodularity No distal ureteral or bladder calculi are seen. No bladder mass lesion is evident. The iliac arteries are of normal caliber. No pelvic adenopathy is noted. There are prominent periuterine veins The lungs bases appear clear. Lumbar scoliosis and degenerative disc disease is seen. No fracture is identified. No focal osseous lesion is seen Impression: 1. Cirrhosis and portal hypertension 2. Numerous small low-attenuation masses within the liver, consistent with infiltrative hepatocellular carcinoma or metastatic disease 3. Portacaval adenopathy, consistent with metastatic disease 4. Splenomegaly 5. Numerous small soft tissue nodules involving the peritoneal lining, concerning for peritoneal carcinomatosis 6. Small to moderate amount of ascites 7. 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 Cholelithiasis without definite acute cholecystitis ACT 112: Positive. There are findings on this exam that require communication between the performing entity and the patient following Patient Test Result Information Act ([place] ACT 112) guidelines. Electronically signed by Juan Sanchez 02-12-2025 6:07 PM
[2025-02-12] MEDS: MAGNESIUM SULFATE / D5W 1 GM/100 ML BAG IV STA (18:21)
[2025-02-12 18:33] LABS: Appearance Urine Clear (Clear); Bilirubin Urine Negative (Negative); Blood Urine Negative (Negative); Color Urine Yellow; Glucose Urine UA Negative (Negative); Ketones Urine Trace (Negative); Leukocyte Esterase Urine Negative (Negative); Nitrite Urine Negative (Negative); Protein Urine Negative (Negative); Specific Gravity Urine 1.045 (1.000-1.030); Urobilinogen Urine Negative (Negative)
--- NOTE | 2025-02-12 18:48 | History & Physical Report ---
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 Plunkett, who feels palliative care/hospice is appropriate at this time Plan: -full GOC discussion tomorrow, DNRDNI -replenish electrolytes -will consider diagnostic/therapeutic paracentesis tomorrow if pocket avaliable -500 cc bolus of NS ordered by ED -start ceftriaxone empirically given tachycardia, left shift on CBC, r/o SBP (2) Diarrhea: Plan: -likely 2/2 immunotherapy, less likely infectious however possible Plan: -stool culture -stool biofire -c.diff ordered (3) Hepatic encephalopathy: Plan: -start lactulose at lowest possible doses given ongoing diarrhea (4) Portal hypertension: Plan: -has known cirrhosis and hepatitis C -MELD Na of 20 indicative of 20% 3 month mortality Plan: -continue lasix/aldactone -start lactulose (5) Hepatitis C: Plan: -cause of above (6) Cancer related pain: Plan: -patient has bone pain from mets and malignant ascites -received palliative radiation therapies for bone mets Plan: -hold off on steroids pending GOC discussion -restart long acting MS contin -start 10 mg PO morphine for severe pain given prior home dosing, 4mg IV morphine for breakthrough pain, discussed with patient/family -0.5 mg IV ativan for severe anxiety/agitation, discussed with patient/family -continue lidocaine patch Plan I spent a total of 90 minutes in direct patient care, including [id number] time with the patient and/or family, reviewing medical records, ordering and reviewing diagnostic tests, and coordinating care with other healthcare providers. This time includes: history taking, physical examination, medical decision making, counseling, ECG interpretation, imaging interpretation, lab interpretation, orders, and education, excluding time spent in the performance of separately billed services. 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 Of note, undergoing treatment with Dr. Plunkett, undergoing treatment atezolizumab/bevacizumab, palliative radiation for metastatic disease to bone, on morphine ER w/ IR morphine (stopped several days ago for confusion), takes ativan with each treatment. Briefly, patient diagnosed in September 2024, plan for Y90 treatment but did not receive before admission at [facility] for cancer complications (metastatic disease), followed up with Dr. Plunkett in December, quickly got PET scan and port placed, began palliative radiation treatments for metastatic hepatocellular carcinoma (scapula, calvarium), first immunotherapy on February 02 Patient seen and examined at bedside. Patient not doing well today. Accompanied by daughter, legal . Patient crying through most of encounter, confused but decisional at this time (alert and orriented x3). States weakness has been ongoing for several months, really became worse after first immunotherapy treatment. States she has been more confused, fatigued, weaker. Having pain throughout body. States her abdomen has been feeling full. Legs have been swelling bilaterally. Of note, ECOG 3 sliding to 4, malignant ascites, bone metastasis, worsening metastatic disease in abdomen, portal vein occlusion via tumor burden. Allergies Allergy/AdvReac Type Severity Reaction Status Date / Time No Known Allergies Allergy Unverified 01/25/25 10:02 Home Medications Medication Instructions Recorded Confirmed Type albuterol sulfate 90 mcg/actuation 2 puff inhalation Q4H PRN 01/25/25 02/12/25 History aerosol inhaler (Ventolin HFA) Shortness Of Breath carvedilol 6.25 mg tablet (Coreg) 6.25 mg PO BID 01/25/25 02/12/25 History furosemide 20 mg tablet (Lasix) 20 mg PO DAILY 01/25/25 02/12/25 History gabapentin 100 mg capsule 100 mg PO TID 01/25/25 02/12/25 History multivitamin with minerals-folic 1 tab PO DAILY 01/25/25 02/12/25 History acid 120 mcg chewable tablet (Centrum Adult 50 Plus Fresh-Fruity) naloxone 4 mg/actuation nasal spray 1 spray intranasal Q3M 01/25/25 02/12/25 History ondansetron HCl 8 mg tablet 8 mg PO Q8H PRN Nausea 01/25/25 02/12/25 History prochlorperazine maleate 10 mg 10 mg PO Q6H PRN Nausea 01/25/25 02/12/25 History tablet (Compazine) venlafaxine 150 mg 150 mg PO DAILY 01/25/25 02/12/25 History capsule,extended release 24 hr venlafaxine 75 mg tablet 75 mg PO DAILY 01/25/25 02/12/25 History morphine 15 mg immediate release 7.5 mg PO Q6H PRN Pain 02/11/25 02/12/25 History tablet lidocaine-prilocaine 2.5 %-2.5 % 1 applic topical UD PRN ACCESSING 02/12/25 02/12/25 History topical cream MEDIPORT potassium chloride 10 mEq 10 meq PO QAM 02/12/25 02/12/25 History tablet,extended release spironolactone 50 mg tablet 50 mg PO AMHS 02/12/25 02/12/25 History Past Med/Surg History Problem List (Updated 02/12/25 @ 20:37 by Aman Cruz MD) Cancer related pain Hepatic encephalopathy Diarrhea 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 difficile colitis Hepatitis C Anxiety Hypertension Surgical History Hx of LASIK Hx of colonoscopy H/O esophagogastroduodenoscopy Family History Mother COPD (chronic obstructive pulmonary disease) Father Cirrhosis of liver Brother Cancer Colon Social History Smoking Status: Former smoker Age Started Using Tobacco: 9; Age Quit Using Tobacco: 64; packs per day: 0.5; Hx Alcohol Use: Yes Alcohol type: beer Alcohol Intake Frequency Comment: no intake since diagnosed with hepatitis Hx Substance Use: Yes Non-Prescribed Medications: Marijuana Last Used Substance Other:: 2 weeks Preferred Language: Belgian Communication Ability: Effective Beliefs That Will Affect Care: None Current Living Situation: Other Current Living Situation Comment: currently living with son current occupational status: retired Feels Safe at Home: Yes Diet: regular during the past year weight has: remained stable Assistive Devices: Denture - Upper and Denture - Lower Review of Systems Review of Systems: CONSTITUTIONAL: fatigue, weakness EYES: Patient denies any visual symptoms. EARS, NOSE, AND THROAT: No difficulties with hearing. No symptoms of rhinitis or sore throat. CARDIOVASCULAR: Patient denies chest pains, palpitations, orthopnea and paroxysmal nocturnal dyspnea. RESPIRATORY: cough, mild SOB GI: abdominal fullness, satiety : No urinary hesitancy or dribbling. No nocturia or urinary frequency. No abnormal urethral discharge. MUSCULOSKELETAL: No myalgias or arthralgias. NEUROLOGIC: No chronic headaches, no seizures. Patient denies numbness, tingling or weakness. PSYCHIATRIC: confusion ENDOCRINE: No excessive urination or excessive thirst. DERMATOLOGIC: Patient denies any rashes or skin changes. Physical Exam Physical Exam: Gen: A&O 3, confused, very sad HEENT: NCAT, EOMI, not icteric. External ears normal. No rhinorrhea. Moist mucous membranes. Neck: Supple, full range of motion, no observable masses, No meningeal sign. Lungs: rhonchi in right lower and middle lobe CV: regular rhythm, tachycardic, 1+ pitting edema in legs bilaterally Abdomen: distended, mildly tender abdomen diffusely MSK: diffuse weakness Skin: No rashes, petechiae, lesions. Neuro: Normal Gait, Grossly intact. Psych: very sad Results & Data Results & Data Vital Signs (Past 12 Hours) Vital Signs Temp Pulse Pulse Resp BP BP Pulse Ox 02/12/25 18:00 99 H 20 113/61 90 02/12/25 17:00 96 H 02/12/25 16:51 02/12/25 15:52 36.7 C 95 H 19 131/73 92 O2 Del Method 02/12/25 18:00 Room Air 02/12/25 17:00 02/12/25 16:51 Room Air 02/12/25 15:52 Room Air Laboratory Results -personally reviewed, elevated alk phos/transaminases/rising bilirubin concerning for worsening liver failure, thrombocytopenia suggestive of liver failure, INR 2.1 suggestive of worsening disease, MELD Na of 20 suggestive of 20% mortality in 3 months (for cirrhosis), Mg of 1.5, K of 3.4 Diagnostic Findings Abdomen/Pelvis CT 02/12/25 16:22 Clinical History: Right lower quadrant pain. Liver cancer Technique: Axial computed tomography images were obtained of the abdomen and pelvis after the administration of intravenous contrast. No prior CT is available for comparison. Findings: The liver is shrunken and nodular in contour, consistent with cirrhosis. There are mild abdominal varices. There are innumerable low-attenuation lesions throughout the right hepatic lobe and to a lesser extent within the left hepatic lobe. There is apparent occlusion of the right portal vein. The main portal vein is patent. There are apparent mild gallbladder wall calcifications. There is a suspected stone in the gallbladder neck. There is no clear evidence of acute cholecystitis. No bile duct dilatation is noted. The spleen is enlarged measuring 15.4 cm. No focal splenic lesion is evident. The pancreas appears normal with no sign of acute or chronic pancreatitis and no mass lesion noted. The pancreatic duct is of normal caliber. The adrenal glands appear unremarkable. No definite renal or proximal ureteral calculi are seen on this contrast-enhanced study. There is no hydronephrosis or perinephric stranding. No renal mass lesion is identified. The aorta is of normal caliber. There is an enlarged portacaval lymph node, measuring 5.3 x 2.3 cm. The stomach appears normal. There is no sign of small bowel obstruction. The colon appears unremarkable. There is no definite sign of appendicitis. No free intraperitoneal air is identified. There is a small to moderate amount of ascites. There is multifocal peritoneal nodularity No distal ureteral or bladder calculi are seen. No bladder mass lesion is evident. The iliac arteries are of normal caliber. No pelvic adenopathy is noted. There are prominent periuterine veins The lungs bases appear clear. Lumbar scoliosis and degenerative disc disease is seen. No fracture is identified. No focal osseous lesion is seen Impression: 1. Cirrhosis and portal hypertension 2. Numerous small low-attenuation masses within the liver, consistent with infiltrative hepatocellular carcinoma or metastatic disease 3. Portacaval adenopathy, consistent with metastatic disease 4. Splenomegaly 5. Numerous small soft tissue nodules involving the peritoneal lining, concerning for peritoneal carcinomatosis 6. Small to moderate amount of ascites 7. 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 Cholelithiasis without definite acute cholecystitis ACT 112: Positive. There are findings on this exam that require communication between the performing entity and the patient following Patient Test Result Information Act ([place] ACT 112) guidelines. Electronically signed by Juan Sanchez 02-12-2025 6:[address] 02/12/25 16:22 Clinical History: Confusion. Technique: Axial computed tomography images were obtained of the brain from the vertex to the skull base without intravenous contrast. Comparison is made to the MRI of the brain dated 01/12/2025 Findings: There is no sign of intracranial hemorrhage. There is normal vora-white matter differentiation with no sign of acute or old infarction. No midline shift or other form of herniation is identified. There is no hydrocephalus. There is an unchanged 3.4 cm expansile hyperdense destructive mass involving the left frontal bone The visualized portions of the orbits and paranasal sinuses appear unremarkable. The mastoid air cells appear clear Impression: 1. Unchanged 3.4 cm expansile destructive mass involving the left frontal bone. This may be due to metastatic disease 2. Otherwise unremarkable noncontrast head CT ACT 112: Positive. There are findings on this exam that require communication between the performing entity and the patient following Patient Test Result Information Act ([place] ACT 112) guidelines. Electronically signed by Juan Sanchez 02-12-2025 5:49 PM -personally reviewed, CT abdomen/pelvis compared to OSH imaging reveals worsening metastatic disease with portal vein compression, peritoneal metastasis, CT head shows unchanged mass in left frontal bone Code Status & VTE Plan Code Status -DNRDNI, discussed with patient/family, full GOC discussion will be incoming tomorrow (2) Diarrhea Diarrhea type: unspecified type Qualified Code(s): R19.7 - Diarrhea, unspecified (5) Hepatitis C Viral hepatitis chronicity: chronic
[2025-02-12] MEDS: fentaNYL citrate PF 100 MCG/2 ML VIAL IV STA (20:13)
[2025-02-12] MEDS: SODIUM CHLORIDE 0.9% 500 ML IV ONE (20:14)
[2025-02-12] MEDS ORDERED: MoRPHine SULFATE 10 MG/0.5 ML UDP PO PRN (20:16)
[2025-02-12] MEDS ORDERED: LORazepam 2 MG/1 ML VIAL IV PRN (20:17)
[2025-02-12] MEDS: CALCIUM GLUCONATE 1,000 MG/60 ML BAG IV STA (21:28)
[2025-02-12] MEDS: POTASSIUM CHLORIDE 20 MEQ/15 ML UDC PO STA (21:28)
[2025-02-12] MEDS ORDERED: MELATONIN 3 MG TAB PO PRN (22:25)
[2025-02-12] MEDS ORDERED: ALBUTEROL HFA 8 GM INHALER INH PRN (22:25)
[2025-02-12] MEDS ORDERED: POLYETHYLENE (MIRALAX) 17 GM PACK PO PRN (22:25)
[2025-02-12] MEDS: MoRPHine SULFATE 4 MG/ML 1 ML CARP\\VIAL IV PRN (22:58)
[2025-02-12] MEDS: MAGNESIUM SULFATE / D5W 1 GM/100 ML BAG IV SCH (22:59)
[2025-02-12] MEDS: LORazepam 0.5 MG TAB PO PRN (23:12)
[2025-02-12] MEDS: MoRPHine SULFATE IR 15 MG TAB (IMMEDIATE RELEASE) PO PRN (23:12)
[2025-02-12] MEDS: GABAPENTIN 100 MG CAP PO SCH (23:13)
[2025-02-12] MEDS: ONDANSETRON 8MG OD TAB PO PRN (23:14)
[2025-02-12] MEDS: SPIRONOLACTONE 25 MG TAB PO SCH (23:14)
--- NOTE | 2025-02-12 23:36 | Ultrasound Report ---
Exam(s): US VENOUS BILATERAL LOWER EXTREMITIES EXAM: US Duplex Bilateral Lower Extremities Veins CLINICAL HISTORY: Reason for exam: leg swelling, cancer. TECHNIQUE: Real-time duplex ultrasound scan of the bilateral lower extremity veins integrating B-mode two-dimensional vascular structure, Doppler spectral analysis, color flow Doppler imaging and compression. COMPARISON: No relevant prior studies available. FINDINGS: Right deep veins: Unremarkable. No DVT in the right common femoral, femoral, proximal deep femoral or popliteal veins. The veins demonstrate normal color flow, are normally compressible, with normal phasic flow and/or augmentation response. Right superficial veins: Unremarkable. No thrombus in the visualized right great saphenous vein. Left deep veins: Unremarkable. No DVT in the left common femoral, femoral, proximal deep femoral or popliteal veins. The veins demonstrate normal color flow, are normally compressible, with normal phasic flow and/or augmentation response. Left superficial veins: Unremarkable. No thrombus in the visualized left great saphenous vein. Soft tissues: No acute findings. No popliteal cyst. IMPRESSION: No evidence of DVT in the lower extremities. Electronically signed by: Aidan Larsen MD 02/12/25 23:36 PM
[2025-02-12] MEDS: cefTRIAXone SODIUM 2,000 MG/50 ML BAG IV SCH (23:55)
[2025-02-13 06:27] LABS: Hematocrit (blood only) 31.9 % (37.0-47.0); Hemoglobin 10.3 g/dl (12.0-16.0); Mean Corpuscular Hemoglobin 28.1 pg (25.0-34.0); Mean Corpuscular Hgb Conc 32.3 g/dL (32.0-36.0); Mean Corpuscular Volume 87.2 fL (80.0-100.0); Mean Platelet Volume 12.1 fL (9.4-12.4); Platelet Count 59 K/uL (130-400); RDW Coefficient of Variation 18.8 % (11.5-14.5); RDW Standard Deviation 58.4 fL (36.4-46.3); Red Blood Count 3.66 M/uL (4.20-5.40); White Blood Count 11.96 K/ul (4.8-10.8)
[2025-02-13 06:53] LABS: INR 2.2 (0.9-1.1); Prothrombin Time 22.6 Seconds (9.0-12.0)
[2025-02-13 06:55] LABS: Albumin Globulin Ratio 1.1 (0.9-2); Albumin Level 3.2 gm/dl (3.4-5.0); BUN Creatinine Ratio 13.3 (10-20); Bilirubin,Total 2.4 mg/dl (0.2-1.0); Calcium 8.7 mg/dl (8.6-10.3); Creatinine Clr Calc Pharmacy 116.8 ml/min; Globulin 2.9 gm/dl (2.5-4.0); Magnesium 2.1 mg/dl (1.7-2.4); Phosphorus 2.5 mg/dl (2.5-4.9); Potassium 3.5 mmol/L (3.5-5.1); Total Protein 6.1 gm/dl (6.0-8.3)
[2025-02-13] MEDS: VENLAFAXINE HCL XR 150 MG CAPXR PO SCH (08:49)
[2025-02-13] MEDS: FUROSEMIDE 20 MG TAB PO SCH (08:50)
[2025-02-13] MEDS: LACTULOSE SYRUP 20 GM/30 ML UDC PO SCH (08:50)
[2025-02-13] MEDS: VENLAFAXINE HCL XR 75 MG CAPXR PO SCH (08:50)
[2025-02-13] MEDS: CEROVITE ADV FORMULA TAB PO SCH (08:50)
[2025-02-13] MEDS: POTASSIUM CHLORIDE 10 MEQ TABCR PO SCH (08:59)
--- NOTE | 2025-02-13 09:18 | XRay Report ---
EXAM: Radiograph of the Chest 1 View INDICATION: TECHNIQUE: Frontal view of the chest. COMPARISON: 10/14/2024 FINDINGS: Lungs and pleural spaces: There is a 3.9 x 4.3 cm groundglass opacity in the right upper lobe or superior segment of the right lower lobe. Coarse interstitial scarring noted. No pleural effusion or pneumothorax. Heart: Shape and configuration within normal limits allowing for technique. Mediastinum: Normal contour. Bones/joints: No fracture, erosion or dislocation. Soft tissues: No abnormality noted. No radiopaque foreign body noted. Tubes, lines and devices: Right internal jugular central venous catheter tip in the distal superior vena cava. Upper abdomen: No abnormality noted. IMPRESSION: 1. There is a 3.9 x 4.3 cm groundglass opacity in the right upper lobe or superior segment of the right lower lobe. Pneumonia considered most likely. Consider confirmation with two-view chest. 2. Lines and tubes as above. ACT 112: N/A Electronically signed by Jenelle Vidal 02-13-2025 09:17 AM
[2025-02-13 09:19] LABS: Cdiff Toxin B Gene (2yr or >) Positive Cdiff Gene (Neg)
[2025-02-13 09:52] LABS: Cdiff Antigen Positive
[2025-02-13 09:54] LABS: Cdiff Toxin A+B Positive Cdiff Toxin (Negative)
[2025-02-13 11:14] LABS: Adenovirus F 40/41 PCR Not Detected (NotDetected); Astrovirus PCR Not Detected (NotDetected); Campylobacter PCR Not Detected (NotDetected); Cryptosporidium PCR Not Detected (NotDetected); Cyclospora cayetanensis PCR Not Detected (NotDetected); Entamoeba histolytica PCR Not Detected (NotDetected); Enteroaggregative E.coli(EAEC) Not Detected (NotDetected); Enteropathogenic E.coli (EPEC) Not Detected (NotDetected); Enterotoxigenic E.coli (ETEC) Not Detected (NotDetected); Giardia lamblia PCR Not Detected (NotDetected); Norovirus GI/GII PCR Not Detected (NotDetected); Plesiomonas shigelloides PCR Not Detected (NotDetected); Rotavirus A PCR Not Detected (NotDetected); Salmonella PCR Not Detected (NotDetected); Sapovirus PCR Not Detected (NotDetected); Shiga-like Toxin E.coli (STEC) Not Detected (NotDetected); Shigella/Enteroinvasive E.coli Not Detected (NotDetected); Vibrio cholerae PCR Not Detected (NotDetected); Vibrio species PCR Not Detected (NotDetected); Yersinia enterocolitica PCR Not Detected (NotDetected)
[2025-02-13] MEDS: FIDAXOMICIN 200 MG TAB PO SCH (12:05)
[2025-02-13] MEDS: PREGABALIN 25 MG CAP PO SCH (13:07)
--- NOTE | 2025-02-13 13:11 | Electrocardiogram Report ---
Test Reason : Blood Pressure : */* mmHG Vent. Rate : 93 BPM Atrial Rate : 93 BPM P-R Int : 112 ms QRS Dur : 76 ms QT Int : 360 ms P-R-T Axes : 63 66 38 degrees QTcB Int : 447 ms Normal sinus rhythm T wave abnormality, consider inferior ischemia Abnormal ECG No previous ECGs available Confirmed by Zain Tolliver ([id number]) on 02/13/2025 1:11:15 PM Referred By: REFERRED SELF Confirmed By: Zain Tolliver
[2025-02-13] MEDS: DEXAMETHASONE SOD INJ 4 MG/ML VIAL IV STA (15:13)
[2025-02-13] MEDS ORDERED: MoRPHine SULFATE IR 15 MG TAB (IMMEDIATE RELEASE) PO PRN (15:21)
--- NOTE | 2025-02-13 16:01 | Hospitalist Progress Note ---
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 Plunkett, who feels palliative care/hospice is appropriate at this time Plan: -see above, will transition patient to comfort focused care -start pregablin for neuropathic component of pain -continue IR morphine 7.5mg, IV morphine 4mg, and start long acting 7.5mg bid -replenish electrolytes -attempted paracentesis bedside, not enough fluid for tap -switch to ciprofloxacin x5 days (2) Diarrhea: Plan: #C. diff -dificid treatment x14 days given failure of prior treatment (3) Hepatic encephalopathy: Plan: -start lactulose at lowest possible doses given ongoing diarrhea (4) Portal hypertension: Plan: -has known cirrhosis and hepatitis C -MELD Na of 20 indicative of 20% 3 month mortality Plan: -continue lasix/aldactone (5) Hepatitis C: Plan: -cause of above (6) Cancer related pain: Plan: -patient has bone pain from mets and malignant ascites -received palliative radiation therapies for bone mets Plan: -start decadron 4mg daily IV for bone related pain, improvement in functional status -see above for further pain control recs -0.5 mg IV ativan for severe anxiety/agitation, discussed with patient/family -continue lidocaine patch Plan I spent a total of 55 minutes in direct patient care, including [id number] time with the patient and/or family, reviewing medical records, ordering and reviewing diagnostic tests, and coordinating care with other healthcare providers. This time includes: history taking, physical examination, medical decision making, counseling, ECG interpretation, imaging interpretation, lab interpretation, orders, and education, excluding time spent in the performance of separately billed services. I spent a total of 30 minutes providing advanced care planning to the patient and/or family, including [id number] time discussing the patient's health status, prognosis, and treatment options. This time includes specific activities such as: discussing advance directives, goals of care, prognostication, and end-of-life planning. Admission and Anticipated Discharge Date Admission Date: February 12, 2025 Subjective Patient seen and examined at bedside. Patient feeling a little better than yesterday. Still having some pain in abdomen. Had goals of care discussion with patient, daughter, , see below. Advanced Care Plannin minutes spent discussing goals and values with patient, , daughter. Meeting started by explaining all of our roles in the care team and family. Discussed patient's critical condition, including metastatic hepatocellular carcinoma to bone, carcinoma carcinomatosis of abdomen, destructive bony metastasis of the head, ECOG of 3 sliding to 4, uncontrolled pain. Discussed the prognosis is likely on the scale of weeks given the prior. Discussed 2 possible clinical routes forward. 1 clinical route would be an attempt to get stronger to try to get strong enough to receive more treatment, with the understanding this is highly unlikely. Discussed that treatment at this point is likely to do more harm than good. Other option was to consider comfort focused care and hospice. Hospice was described at length. Patient and family would like to pursue hospice at home. Review of Systems Review of Systems: CONSTITUTIONAL: fatigue, weakness EYES: Patient denies any visual symptoms. EARS, NOSE, AND THROAT: No difficulties with hearing. No symptoms of rhinitis or sore throat. CARDIOVASCULAR: Patient denies chest pains, palpitations, orthopnea and paroxysmal nocturnal dyspnea. RESPIRATORY: cough, mild SOB GI: abdominal fullness, satiety : No urinary hesitancy or dribbling. No nocturia or urinary frequency. No abnormal urethral discharge. MUSCULOSKELETAL: No myalgias or arthralgias. NEUROLOGIC: No chronic headaches, no seizures. Patient denies numbness, tingling or weakness. PSYCHIATRIC: confusion ENDOCRINE: No excessive urination or excessive thirst. DERMATOLOGIC: Patient denies any rashes or skin changes. Physical Exam Physical Exam: Gen: A&O 3, improved from yesterday HEENT: NCAT, EOMI, not icteric. External ears normal. No rhinorrhea. Moist mucous membranes. Neck: Supple, full range of motion, no observable masses, No meningeal sign. Lungs: rhonchi in right lower and middle lobe CV: regular rhythm, tachycardic, 1+ pitting edema in legs bilaterally Abdomen: distended, mildly tender abdomen diffusely MSK: diffuse weakness Skin: No rashes, petechiae, lesions. Neuro: Normal Gait, Grossly intact. Psych: sad, less so than yesterday Results & Data Results & Data Vital Signs (Past 12 Hours) Vital Signs Temp Pulse Resp BP Pulse Ox O2 Del Method 02/13/25 11:25 36.4 C L 101 H 19 152/80 H 96 Room Air 02/13/25 08:13 36.7 C 104 H 19 147/68 H 93 Room Air Laboratory Results -personally reviewed, improvement in electrolytes and LFTs with fluids and replenishment, slightly increased INR Medications Administered Fidaxomicin (Fidaxomicin 200 Mg Tab) 200 mg PO BID BRENNAN Stop: 02/23/25 11:14 Last Admin: 02/13/25 12:05 Dose: 200 mg Documented By: DAVID Furosemide (Furosemide 20 Mg Tab) 20 mg PO DAILY BRENNAN Stop: 03/15/25 08:59 Last Admin: 02/13/25 08:50 Dose: 20 mg Documented By: DAVID Ceftriaxone Sodium (Rocephin) 2,000 mg in 50 mls @ 100 mls/hr IV Q24H BRENNAN Stop: 02/22/25 20:29 Last Infusion: 02/13/25 01:45 Dose: Infused Documented By: Admin: 02/12/25 23:55 Dose: 100 mls/hr Documented By: FRANSISCO Lactulose (Lactulose Syrup 20 Gm/30 Ml Udc) 20 gm PO DAILY BRENNAN Stop: 03/15/25 08:59 Last Admin: 02/13/25 08:50 Dose: 20 gm Documented By: DAVID Lorazepam (Lorazepam 0.5 Mg Tab) 0.5 mg PO Q8 PRN PRN Reason: Anxiety Stop: 03/14/25 20:38 Last Admin: 02/12/25 23:12 Dose: 0.5 mg Documented By: FRANSISCO Morphine Sulfate (Morphine Sulfate 4 Mg/Ml 1 Ml Carp\Vial) 4 mg IV Q3HWA PRN PRN Reason: Breakthrough Pain Stop: 02/26/25 20:15 Last Admin: 02/13/25 02:56 Dose: 4 mg Documented By: Admin: 02/12/25 22:58 Dose: 4 mg Documented By: FRANSISCO Multivitamins/Minerals (Cerovite Adv Formula Tab) 1 tab PO DAILY BRENNAN Stop: 03/15/25 08:59 Last Admin: 02/13/25 08:50 Dose: 1 tab Documented By: DAVID Ondansetron HCl (Ondansetron 8mg Od Tab) 8 mg PO Q8H PRN PRN Reason: Nausea And Vomiting Stop: 03/14/25 22:34 Last Admin: 02/12/25 23:14 Dose: 8 mg Documented By: FRANSISCO Potassium Chloride (Potassium Chloride 10 Meq Tabcr) 10 meq PO QAM [facility] Stop: 03/15/25 08:59 Last Admin: 02/13/25 08:59 Dose: 10 meq Documented By: DAVID Pregabalin (Pregabalin 25 Mg Cap) 25 mg PO TID [facility] Stop: 03/15/25 13:59 Last Admin: 02/13/25 13:07 Dose: 25 mg Documented By: CODIE Spironolactone (Spironolactone 25 Mg Tab) 50 mg PO BID17 [facility] Stop: 03/14/25 22:24 Last Admin: 02/13/25 08:49 Dose: 50 mg Documented By: Admin: 02/12/25 23:14 Dose: 50 mg Documented By: FRANSISCO Venlafaxine HCl (Venlafaxine Hcl Xr 75 Mg Capxr) 75 mg PO DAILY [facility] Stop: 03/15/25 08:59 Last Admin: 02/13/25 08:50 Dose: 75 mg Documented By: ADVID Venlafaxine HCl (Venlafaxine Hcl Xr 150 Mg Capxr) 150 mg PO DAILY [facility] Stop: 03/15/25 08:59 Last Admin: 02/13/25 08:49 Dose: 150 mg Documented By: DAVID (2) Diarrhea Diarrhea type: unspecified type Qualified Code(s): R19.7 - Diarrhea, unspecified (5) Hepatitis C Viral hepatitis chronicity: chronic
--- NOTE | 2025-02-13 16:07 | Procedure Note ---
Procedure Note Date of Service February 13, 2025 Note INDICATION: ascites_PROCEDURE SALVAGER: Aman Cruz_ATTENDING PHYSICIAN: Aman Cruz_ Ultrasound used to saravanan location: yes CONSENT: During the informed consent discussion regarding the procedure, or treatment, I explained the following to the patient/designee: a. Nature of the procedure or treatment and who will perform the procedure or treatment. b. Necessity for procedure and the possible benefits. c. Risks and complications (most common and serious). d. Alternative treatments and the risks, benefits and side effects of each (including no treatment). e. Likelihood of the patient achieving his/her goals without this procedure and surgery treatment. f. Problems that might occur during the recuperation. g. Conflicts of interest, if any PROCEDURE SUMMARY: A time-out was performed. My hands were washed immediately prior to the procedure. The area was cleansed and draped in usual sterile fashion using chlorhexidine scrub. Anesthesia was achieved with 1% lidocaine. The left lateral of the abdomen was prepped and draped in a sterile fashion using chlorhexidine scrub. 1% lidocaine was used to numb the skin, soft tissue and peritoneum. The paracentesis catheter was inserted and advanced with negative pressure until serosanginous colored fluid was aspirated. Approximately 10 mL of ascitic fluid was collected but no further fluid able to be collected. The catheter was removed and no leaking was noted. A bandaid was placed over the puncture wound. The patient tolerated the procedure well without any immediate complications. Estimated blood loss was 5cc. Coding
[2025-02-13] MEDS: MoRPHine SULFATE CR 15 MG TABCR PO SCH (16:08)
[2025-02-14] MEDS: dexAMETHasone 4 MG in SYRINGE 0 ML IV SCH (08:32)
[2025-02-14] MEDS: MoRPHine SULFATE CR 15 MG TABCR PO SCH (08:32)
--- NOTE | 2025-02-14 12:39 | Hospitalist Progress Note ---
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 Plunkett, who feels palliative care/hospice is appropriate at this time Plan: -see above, will transition patient to comfort focused care -continue pregablin for neuropathic component of pain -47 MME per day, increase long acting to 15mg bid -continue IR morphine 7.5mg, IV morphine 4mg -replenish electrolytes -attempted paracentesis bedside, not enough fluid for tap -switch to ciprofloxacin x5 days (2) Diarrhea: Plan: #C. diff -dificid treatment x14 days given failure of prior treatment (3) Hepatic encephalopathy: Plan: -continue lactulose at lowest possible doses given ongoing diarrhea (4) Portal hypertension: Plan: -has known cirrhosis and hepatitis C -MELD Na of 20 indicative of 20% 3 month mortality Plan: -continue lasix/aldactone (5) Hepatitis C: Plan: -cause of above (6) Cancer related pain: Plan: -patient has bone pain from mets and malignant ascites -received palliative radiation therapies for bone mets Plan: -continue decadron 4mg daily IV for bone related pain, improvement in functional status -see above for further pain control recs -0.5 mg IV ativan for severe anxiety/agitation, discussed with patient/family -continue lidocaine patch Plan I spent a total of 50 minutes in direct patient care, including [id number] time with the patient and/or family, reviewing medical records, ordering and reviewing diagnostic tests, and coordinating care with other healthcare providers. This time includes: history taking, physical examination, medical decision making, counseling, ECG interpretation, imaging interpretation, lab interpretation, orders, and education, excluding time spent in the performance of separately billed services. Admission and Anticipated Discharge Date Admission Date: February 12, 2025 Subjective Patient seen and examined at bedside. Ms. Marks is doing ok today. She states her pain is better controlled than yesterday but she still has some pain. Review of Systems Review of Systems: CONSTITUTIONAL: fatigue, weakness EYES: Patient denies any visual symptoms. EARS, NOSE, AND THROAT: No difficulties with hearing. No symptoms of rhinitis or sore throat. CARDIOVASCULAR: Patient denies chest pains, palpitations, orthopnea and par oxysmal nocturnal dyspnea. RESPIRATORY: cough, mild SOB GI: abdominal fullness, satiety : No urinary hesitancy or dribbling. No nocturia or urinary frequency. No abnormal urethral discharge. MUSCULOSKELETAL: No myalgias or arthralgias. NEUROLOGIC: No chronic headaches, no seizures. Patient denies numbness, tingling or weakness. PSYCHIATRIC: confusion ENDOCRINE: No excessive urination or excessive thirst. DERMATOLOGIC: Patient denies any rashes or skin changes. Physical Exam Physical Exam: Gen: A&O 3, improved from yesterday HEENT: NCAT, EOMI, not icteric. External ears normal. No rhinorrhea. Moist mucous membranes. Neck: Supple, full range of motion, no observable masses, No meningeal sign. Lungs: rhonchi in right lower and middle lobe CV: regular rhythm, tachycardic, 1+ pitting edema in legs bilaterally Abdomen: distended, mildly tender abdomen diffusely MSK: diffuse weakness Skin: No rashes, petechiae, lesions. Neuro: Normal Gait, Grossly intact. Psych: sad, less so than yesterday Results & Data Results & Data Vital Signs (Past 12 Hours) Vital Signs Temp Pulse Pulse Resp BP Pulse Ox O2 Del Method 02/14/25 12:04 36.7 C 128 H 20 133/76 97 Room Air 02/14/25 08:00 36.6 C 108 H 16 135/78 96 Room Air 02/14/25 05:44 101 H 02/14/25 03:45 36.7 C 112 H 18 143/75 H 95 Room Air Medications Administered Fidaxomicin (Fidaxomicin 200 Mg Tab) 200 mg PO BID [facility] Stop: 02/23/25 11:14 Last Admin: 02/14/25 08:32 Dose: 200 mg Documented By: Admin: 02/13/25 20:44 Dose: 200 mg Documented By: Admin: 02/13/25 12:05 Dose: 200 mg Documented By: DAVID Furosemide (Furosemide 20 Mg Tab) 20 mg PO DAILY [facility] Stop: 03/15/25 08:59 Last Admin: 02/14/25 08:35 Dose: 20 mg Documented By: Admin: 02/13/25 08:50 Dose: 20 mg Documented By: DAVID Ceftriaxone Sodium (Rocephin) 2,000 mg in 50 mls @ 100 mls/hr IV Q24H [facility] Stop: 02/22/25 20:29 Last Infusion: 02/13/25 21:26 Dose: Infused Documented By: Admin: 02/13/25 20:49 Dose: 100 mls/hr Documented By: Infusion: 02/13/25 01:45 Dose: Infused Documented By: Admin: 02/12/25 23:55 Dose: 100 mls/hr Documented By: FRANSISCO Dexamethasone 4 mg/ Syringe 1 mls @ 1 mls/min IV Q24H [facility] Stop: 03/16/25 07:59 Last Admin: 02/14/25 08:32 Dose: 1 mls/min Documented By: FABIÁN Lactulose (Lactulose Syrup 20 Gm/30 Ml Udc) 20 gm PO DAILY [facility] Stop: 03/15/25 08:59 Last Admin: 02/14/25 08:34 Dose: 20 gm Documented By: Admin: 02/13/25 08:50 Dose: 20 gm Documented By: DAVID Lorazepam (Lorazepam 0.5 Mg Tab) 0.5 mg PO Q8 PRN PRN Reason: Anxiety Stop: 03/14/25 20:38 Last Admin: 02/12/25 23:12 Dose: 0.5 mg Documented By: FRANSISCO Morphine Sulfate (Morphine Sulfate 4 Mg/Ml 1 Ml Carp\Vial) 4 mg IV Q3HWA PRN PRN Reason: Breakthrough Pain Stop: 02/26/25 20:15 Last Admin: 02/14/25 07:34 Dose: 4 mg Documented By: Admin: 02/13/25 20:30 Dose: 4 mg Documented By: Admin: 02/13/25 02:56 Dose: 4 mg Documented By: Admin: 02/12/25 22:58 Dose: 4 mg Documented By: FRANSISCO Morphine Sulfate (Morphine Sulfate Cr 15 Mg Tabcr) 15 mg PO Q12H [facility] Stop: 02/28/25 08:29 Last Admin: 02/14/25 08:32 Dose: 15 mg Documented By: FABIÁN Multivitamins/Minerals (Cerovite Adv Formula Tab) 1 tab PO DAILY [facility] Stop: 03/15/25 08:59 Last Admin: 02/14/25 08:34 Dose: 1 tab Documented By: Admin: 02/13/25 08:50 Dose: 1 tab Documented By: DAVID Ondansetron HCl (Ondansetron 8mg Od Tab) 8 mg PO Q8H PRN PRN Reason: Nausea And Vomiting Stop: 03/14/25 22:34 Last Admin: 02/14/25 09:18 Dose: 8 mg Documented By: Admin: 02/12/25 23:14 Dose: 8 mg Documented By: FRANSISCO Potassium Chloride (Potassium Chloride 10 Meq Tabcr) 10 meq PO QAM [facility] Stop: 03/15/25 08:59 Last Admin: 02/14/25 08:32 Dose: 10 meq Documented By: Admin: 02/13/25 08:59 Dose: 10 meq Documented By: DAVID Pregabalin (Pregabalin 25 Mg Cap) 25 mg PO TID [facility] Stop: 03/15/25 13:59 Last Admin: 02/14/25 08:32 Dose: 25 mg Documented By: Admin: 02/13/25 20:44 Dose: 25 mg Documented By: Admin: 02/13/25 13:07 Dose: 25 mg Documented By: CODIE Spironolactone (Spironolactone 25 Mg Tab) 50 mg PO BID17 [facility] Stop: 03/14/25 22:24 Last Admin: 02/14/25 08:33 Dose: 50 mg Documented By: Admin: 02/13/25 16:07 Dose: 50 mg Documented By: Admin: 02/13/25 08:49 Dose: 50 mg Documented By: Admin: 02/12/25 23:14 Dose: 50 mg Documented By: FRANSISCO Venlafaxine HCl (Venlafaxine Hcl Xr 75 Mg Capxr) 75 mg PO DAILY [facility] Stop: 03/15/25 08:59 Last Admin: 02/14/25 08:34 Dose: 75 mg Documented By: Admin: 02/13/25 08:50 Dose: 75 mg Documented By: DAVID Venlafaxine HCl (Venlafaxine Hcl Xr 150 Mg Capxr) 150 mg PO DAILY [facility] Stop: 03/15/25 08:59 Last Admin: 02/14/25 08:36 Dose: 150 mg Documented By: Admin: 02/13/25 08:49 Dose: 150 mg Documented By: DAVID (2) Diarrhea Diarrhea type: unspecified type Qualified Code(s): R19.7 - Diarrhea, unspecified (5) Hepatitis C Viral hepatitis chronicity: chronic
[2025-02-15 07:01] VITALS: BP 151/84; PULSE 114; RESP 18; TEMP 97.5; O2SAT 97
--- NOTE | 2025-02-15 13:16 | Discharge Summary ---
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 Plunkett, who feels palliative care/hospice is appropriate at this time Plan: -see above, will transition patient to comfort focused care -continue pregablin for neuropathic component of pain -47 MME per day, increase long acting to 15mg bid -continue IR morphine 7.5mg, IV morphine 4mg -replenish electrolytes -attempted paracentesis bedside, not enough fluid for tap -switch to ciprofloxacin x5 days (2) Diarrhea: #C. diff -dificid treatment x14 days given failure of prior treatment (3) Hepatic encephalopathy: -continue lactulose at lowest possible doses given ongoing diarrhea (4) Portal hypertension: -has known cirrhosis and hepatitis C -MELD Na of 20 indicative of 20% 3 month mortality Plan: -continue lasix/aldactone (5) Hepatitis C: -cause of above (6) Cancer related pain: -patient has bone pain from mets and malignant ascites -received palliative radiation therapies for bone mets Plan: -continue decadron 4mg daily IV for bone related pain, improvement in functional status -see above for further pain control recs -0.5 mg IV ativan for severe anxiety/agitation, discussed with patient/family -continue lidocaine patch Notes For Next Care Provider 64 yo female with pmhx of stage IV hepatocellular carcinoma c/b cancer related pain, 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 Noted to have worsening metastatic disease, discussed with patient oncologist, prognosis poor overall. Discussed GOC with patient and family, they would like to focus on comfort at this time. Paracentesis attempted but no fluid pocket obtained. Started long acting pain regiment, decadron with significant improvement in pain and functional status. On 02/15/2025 patient discharged home with hospice services. 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 Of note, undergoing treatment with Dr. Plunkett, undergoing treatment atezolizumab/bevacizumab, palliative radiation for metastatic disease to bone, on morphine ER w/ IR morphine (stopped several days ago for confusion), takes ativan with each treatment. Briefly, patient diagnosed in September 2024, plan for Y90 treatment but did not receive before admission at [facility] for cancer complications (metastatic disease), followed up with Dr. Plunkett in December, quickly got PET scan and port placed, began palliative radiation treatments for metastatic hepatocellular carcinoma (scapula, calvarium), first immunotherapy on February 02 Patient seen and examined at bedside. Patient not doing well today. Accompanied by daughter, legal . Patient crying through most of encounter, confused but decisional at this time (alert and orriented x3). States weakness has been ongoing for several months, really became worse after first immunotherapy treatment. States she has been more confused, fatigued, weaker. Having pain throughout body. States her abdomen has been feeling full. Legs have been swelling bilaterally. Of note, ECOG 3 sliding to 4, malignant ascites, bone metastasis, worsening metastatic disease in abdomen, portal vein occlusion via tumor burden. Discharge Exam Gen: A&O 3, improved from yesterday HEENT: NCAT, EOMI, not icteric. External ears normal. No rhinorrhea. Moist mucous membranes. Neck: Supple, full range of motion, no observable masses, No meningeal sign. Lungs: rhonchi in right lower and middle lobe CV: regular rhythm, tachycardic, 1+ pitting edema in legs bilaterally Abdomen: distended, mildly tender abdomen diffusely MSK: diffuse weakness Skin: No rashes, petechiae, lesions. Neuro: Normal Gait, Grossly intact. Psych: sad, less so than yesterday Updated Medication List Medication Instructions Recorded Confirmed Type albuterol sulfate 90 mcg/actuation 2 puff inhalation Q4H PRN 01/25/25 02/12/25 History aerosol inhaler (Ventolin HFA) Shortness Of Breath furosemide 20 mg tablet (Lasix) 20 mg PO DAILY 01/25/25 02/12/25 History naloxone 4 mg/actuation nasal spray 1 spray intranasal Q3M 01/25/25 02/12/25 History ondansetron HCl 8 mg tablet 8 mg PO Q8H PRN Nausea 01/25/25 02/12/25 History venlafaxine 150 mg 150 mg PO DAILY 01/25/25 02/12/25 History capsule,extended release 24 hr venlafaxine 75 mg tablet 75 mg PO DAILY 01/25/25 02/12/25 History lidocaine-prilocaine 2.5 %-2.5 % 1 applic topical UD PRN ACCESSING 02/12/25 0 02/12/25 History topical cream MEDIPORT potassium chloride 10 mEq 10 meq PO QAM 02/12/25 02/12/25 History tablet,extended release spironolactone 50 mg tablet 50 mg PO AMHS 02/12/25 02/12/25 History dexamethasone 4 mg tablet 4 mg PO DAILY #30 tabs 02/15/25 Rx fidaxomicin 200 mg tablet (Dificid) 200 mg PO BID 12 days #24 tabs 02/15/25 Rx lactulose 10 gram/15 mL oral 20 g (30 mL) PO DAILY #3,785 mL 02/15/25 Rx solution morphine 15 mg immediate release 7.5 mg (1/2 x 15 mg) PO Q3HWA PRN 02/15/25 Rx tablet pain 3 days #5 tabs morphine 15 mg tablet,extended 15 mg PO Q12H 3 days #6 tabs 02/15/25 Rx release pregabalin 25 mg capsule 25 mg PO TID 3 days #9 caps 02/15/25 Rx Hospital Stay Data Consultations 02/12/25 18:32 ED Decision to Admit Stat Diagnostic Imagining Performed 02/12/25 16:22 CT Abd and Pelvis [CT abd pelvis IV con only] Stat CT head/brain wo con Stat 02/12/25 20:41 US venous duplex leg [US venous doppler LE BI] Stat Pending Results Patient Have Any Pending Studies at Discharge: No Discharge Instructions Given to Patient (Per Discharging Provider) 1. Please follow up with pain needs with hospice team. Total Time Total Time Spent Total Time Spent (In Minutes): I spent a total of 35 minutes in direct patient care, including [id number] time with the patient and/or family, reviewing medical records, ordering and reviewing diagnostic tests, and coordinating care with other healthcare providers. This time includes: history taking, physical examination, medical decision making, counseling, ECG interpretation, imaging interpretation, lab interpretation, orders, and education, excluding time spent in the performance of separately billed services.
== END 2025-02-15 13:22 | disposition hospice, home (50) | DRG 435 ==
LOC: ED 15:48 → 2S 19:59
DX: I81 Portal vein thrombosis; K74.69 Other cirrhosis of liver; G89.3 Neoplasm related pain (acute) (chronic); Z66 Do not resuscitate; C22.0 Liver cell carcinoma; Z79.899 Other long term (current) drug therapy; C78.6 Secondary malignant neoplasm of retroperitoneum and peritoneum; F32.A Depression, unspecified; K76.82 Hepatic encephalopathy; Z87.891 Personal history of nicotine dependence; B19.20 Unspecified viral hepatitis C without hepatic coma; A04.72 Enterocolitis due to Clostridium difficile, not specified as recurrent; C79.51 Secondary malignant neoplasm of bone; K76.6 Portal hypertension; R18.0 Malignant ascites; F41.1 Generalized anxiety disorder